=== PATIENT | female | born 1995 | race Caucasian/White ===

== ENCOUNTER 2022-10-10 21:48 | Emergency (ER) | payer OTHER, BC, SELFPAY ==
[2022-10-10 21:59] VITALS: BP 134/85; PULSE 89; RESP 18; TEMP 36.7; O2SAT 99; BMI 32.0
--- NOTE | 2022-10-10 22:02 | CT_ITS ---
Patient: CHRIS DIXON Facility:?[facility] Patient ID:?[id number] Site Patient ID:?[id number]. Site :?1995 Study:?CT-Neck Angio W/IV STROKE PROTOCOL-10/10/2022 11:13:47 PM Ordering Physician:Nancy Delgado Final Report: INDICATION: Acute stroke, right-sided facial weakness, . TECHNIQUE: CTA neck with contrast bolus tracking and 3D MIP reconstruction. FINDINGS: The study is limited by suboptimal timing of the contrast bolus. There is no obvious carotid or vertebral artery stenosis or dissection. The soft tissues of the neck are within normal limits. The cervical spine is in normal alignment. IMPRESSION: Unremarkable neck CTA, limited by suboptimal timing of the contrast bolus. Please note that all CT scans at this facility use dose modulation, iterative reconstruction, and/or weight-based dosing when appropriate to reduce radiation dose to as low as reasonably achievable. Dictated by Desmond Stratton MD @ 10/11/2022 9:33:28 AM Signed by:?Desmond Stratton MD @10/11/2022 9:33:28 AM (Electronic Signature)
--- NOTE | 2022-10-10 22:02 | CT_ITS ---
Patient: CHRIS DIXON Facility:?[facility] Patient ID:?[id number] Site Patient ID:?[id number]. Site :?1995 Study:?CT-Head Angio W/IV ONLY-10/10/2022 11:14:09 PM Ordering Physician:?Elizabeth Delgado Final Report: INDICATION: Acute stroke, right-sided facial weakness, . TECHNIQUE: CTA head with contrast bolus tracking and 3D MIP reconstruction. FINDINGS: The study is limited by suboptimal timing of the contrast bolus. There is no obvious large vessel occlusion. No aneurysm is identified. IMPRESSION: No obvious large vessel occlusion on this limited study. Please note that all CT scans at this facility use dose modulation, iterative reconstruction, and/or weight-based dosing when appropriate to reduce radiation dose to as low as reasonably achievable. Dictated by Desmond Stratton MD @ 10/11/2022 9:31:57 AM Signed by:?Desmond Stratton MD @10/11/2022 9:31:57 AM (Electronic Signature)
--- NOTE | 2022-10-10 22:02 | CRLHL7_ITS ---
For Patients: As a result of the Century Cures Act, medical imaging exams and procedure reports are released immediately into your electronic medical record. You may view this report before your referring provider. If you have questions, please contact your health care provider. INDICATION: Right side facial weakness, , right sided facial weakness TECHNIQUE: CT Head without i.v. contrast. Coronal and sagittal reformats were obtained. COMPARISON: None FINDINGS: CSF space: The ventricles are normal for age. Brain: No evidence of mass, acute infarction or hemorrhage is seen. No mass-effect or midline shift is seen. The brain parenchyma is otherwise normal in appearance with preservation of the murray-white matter junction. Calvarium: The visualized paranasal sinuses are well aerated. The mastoid air cells are clear. The visualized orbits are grossly unremarkable. The calvarium is unremarkable in appearance with no fractures identified. IMPRESSION: 1. No evidence of acute infarction, intracranial hemorrhage, or mass-effect seen. The findings were discussed with Dr. Johnson at 11:45 PM. Please note that all CT scans at this facility use dose modulation, iterative reconstruction, and/or weight-based dosing when appropriate to reduce radiation dose to as low as reasonably achievable. Dictated by: Devyn Chao MD @ 10/10/2022 23:48:03 (Electronically Signed)
[2022-10-10 22:10] VITALS: PULSE 52
[2022-10-10 22:33] LABS: Basophils Absolute Auto 0.05 K/uL (0.00-0.30); Basophils Percent Auto 0.5 % (0.0-3.0); Eosinophils Absolute Auto 0.12 K/uL (0.00-0.50); Eosinophils Percent Auto 1.2 % (0.0-7.0); Hematocrit 38.1 % (33.0-51.0); Hemoglobin* 12.5 gm/dL (12.0-16.0); Immature Granulocytes Abs Auto 0.08 K/uL (0.00-0.30); Immature Granulocytes Pct Auto 0.8 %; Lymphocytes Absolute Auto 3.51 K/uL (0.90-2.90); Lymphocytes Percent Auto 36.1 % (20-44); Mean Corpuscular HGB Conc 33 gm/dL (32-36); Mean Corpuscular Hemoglobin 30 pg (26-34); Mean Corpuscular Volume 93 fL (80-100); Monocytes Percent Auto 7.3 % (0.0-11.0); Neutrophils Absolute Auto 5.26 K/uL (1.7-7.0); Neutrophils Percent Auto 54.1 % (42.0-72.0); Platelet Count* 337 K/uL (140-440); Red Blood Count 4.12 m/uL (4.00-5.20); White Blood Count* 9.73 K/uL (4.50-11.00)
[2022-10-10 22:34] LABS: Slide Review Reflex No
[2022-10-10 22:41] LABS: Chloride* 109 mmol/L (96-114); Potassium* 4.3 mmol/L (3.6-5.1); Sodium* 139 mmol/L (135-149)
[2022-10-10 22:44] LABS: Blood Urea Nitrogen* 14 mg/dL (5-24); Carbon Dioxide* 26 mmol/L (20-32); Creatinine* 0.7 mg/dL (0.5-1.5); Est. Creatinine Clearance* 95.48; Estimated Glomerular Filt Rate 121 ml/min; Glucose* 78 mg/dL (60-115)
--- OUTSIDE RECORDS SUMMARY | 2022-10-10 23:51 | XMS_ITS | Encounter Summary ---
:1995 Author Organization [place] Address [address] [place] [address] Care Team Providers Name Role Phone Karen Garza PA-C Unavailable [phone] Gretta Fishman [facility] Unavailable Karen Garza PA-C Primary Care Provider [phone] Reason for Visit Reason Onset Date Comments Patient/info Update 04/03/2021 Clinic Contact landy rivas. Encounter Details Date Type Department Care Team Description 04/03/2021 Telephone [facility] Gretta Fishman Pat ient/info Update [facility] (Clinic Contact number [place] [address] ) [address] [place] [address] [address] [address] [place] [address] Social History Tobacco Use Types Packs/Day Years Used Date Smoking Tobacco: Never Smokeless Tobacco: Never Alcohol Use Standard Drinks/Week Comments Not Currently 0 (1 standard drink = 0.6 oz pure alcoho l) Sex Assigned at Date Recorded Not on file documented as of this encounter Miscellaneous Notes Telephone Encounter - Luann Browning, DANILO - 04/03/2021 11:30 AM CDT Sent patient a mychart with the new clinic number, even tho she has not been seen in our clinic since October, and looks like she has transferred her care to another [facility] group. Luann Browning CMA documented in this encounter Plan of Treatment Not on filedocumented as of this encounter Visit Diagnoses Not on filedocumented in this encounter Care Teams Demolition Worker Relationship Specialty Start Date End Date Karen Garza, PCP - General Family Medicine 02/28/21 [facility] [address] , [address] [address] Karen Garza, Assigned PCP 05/20/20 701/14 [facility] [address], [address] [address] Gretta Fishman CNM Assigned OBGYN Provider 10/28/20 08/17/21 [address] [place], [place] [id number] documented as of this encounter
--- OUTSIDE RECORDS SUMMARY | 2022-10-10 23:51 | XMS_ITS | Encounter Summary ---
:1995 Author Organization [place] Address [address] [place] [address] Care Team Providers Name Role Phone Karen Garza PA-C Unavailable Gretta Fishman CNM Unavailable Karen Garza PA-C Primary Care Provider [phone] Encounter Details Date Type Department Care Team Description 04/21/2021 Travel Social History Tobacco Use Types Packs/Day Years Used Date Smoking Tobacco: Never Smokeless Tobacco: Never Alcohol Use Standard Drinks/Week Comments Not Currently 0 (1 standard drink = 0.6 oz pure alcoho l) Sex Assigned at Date Recorded Not on file COVID-19 Exposure Response Date Recorded In the last month, have you been in contact with No / Unsure 04/21/2021 7:58 PM CDT someone who was confirmed or suspected to have Coronavirus / COVID-19? documented as of this encounter Plan of Treatment Not on filedocumented as of this encounter Visit Diagnoses Not on filedocumented in this encounter Care Teams Cardroom Manager Relationship Specialty Start Date End Date Karen Garza PCP - General Family Medicine 02/28/21 [facility] [address], [address] [place] [address] Karen Garza, Assigned PCP 05/20/20 7/01/14 PA-C [address], [address] [place], [place] [address] Gretta Fishman CNM Assigned OBGYN Provider 10/28/20 08/17/21 [address] [place], [place] [address] documented as of this encounter
--- OUTSIDE RECORDS SUMMARY | 2022-10-10 23:51 | XMS_ITS | Clinical Summary ---
:1995 Author Organization [place] Address [address] [facility] [place] [address] Care Team Providers Name Role Phone Karen Garza PA-C Primary Care Provider [phone] Karen Garza PA-C Unavailable [phone] Allergies Active Allergy Reactions Severity Noted Date Comments Azithromycin 02/20/2014 rash Medications Medication Sig Dispensed Refills Start Date End Date Status triamcinolone Apply sparingly to 80 g 0 05/09/2020 Active (KENALOG) 0.1 % affected area twice external daily for one week creamIndications: Dermatitis Vit-Fe 0 Acti ve Fumarate-FA ( VITAMIN) 27-0.8 MG TABS cetirizine (ZYRTEC) Take 10 mg by mouth 0 Active 10 MG tablet daily acetaminophen Take 2 tablets (650 0 04/25/2021 Active (TYLENOL) 325 MG mg) by mouth every tabletIndications: 4 hours as needed S/P section for other (multimodal surgical pain management along with NSAIDS and opioid medication as indicated based on pain control and physical function) ibuprofen Take 4 tablets (800 0 04/24/2021 Active (ADVIL/MOTRIN) 200 MG mg) by mouth every tabletIndications: 6 hours as needed S/P section for other (cramping) senna-docusate Take 1 tablet by 30 tablet 1 04/24/2021 Active (SENOKOT-S/PERICOLACE mouth 2 times daily ) 8.6-50 MG as needed for tabletIndications: constipation S/P section magnesium 250 MG Take 1 tablet by 0 Active tablet mouth daily benzocaine Apply to perineum 57 g 1 10/04/2022 Active (AMERICAINE) 20 % as needed for pain external aerosolIndications: , delivered hydrocortisone, Place rectally 3 30 g 1 10/04/2022 Active Perianal, (ANUSOL-HC) times daily as 2.5 % needed for creamIndications: hemorrhoids , delivered lanolin Apply topically 7 g 3 10/04/2022 Act malaika ointmentIndications: every hour as , delivered needed for other (sore nipples) Active Problems Problem Noted Date Labor and delivery indication for care or intervention 10/03/2022 S/P section 04/24/2021 Indication for care in labor or delivery 04/21/2021 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 Yancy Watts Oz has no plan or code status on file. Discussed available resources and p rovided with information. Confirmed code status reflects current choices pending further ACP discussions. Confirmed/documented legally designated decision makers. Added by [facility] 02/09/2013 Overview: State Tier Level: Tier 1 Status: n/a Senior Director: See Letters for [facility] Care Plan Resolved Problems Problem Noted Date Resolved Date Viral warts 02/03/2008 02/18/2014 Overview: Problem list name updated by automated p rocess. Provider to review NO ACTIVE PROBLEMS 02/09/2013 Encounters Date Type Specialty Care Team Description 10/04/2022 Travel 10/03/2022 Anesthesia Event ballast cleaning operator Kerline Storey MD 10/03/2022 - Hospital Encounter ballast cleaning operator Adriana Bernal , gerardo villafana (Primary Dx); 10/05/2022 MD Marisela S/P section Shameka Goodman MD from Last 3 Months Immunizations Name Administration Dates Next Due DTAP (<7y) 04/24/2000 DTP-Hib 04/29/1996, 1995, 1995, 1995 Flu, Unspecified 09/28/2019 HPV 02/05/2011, 04/18/2008, 02/03/200808/05 HepB 08/16/2002 MMR 09/15/2006, 04/29/1996 Meningococcal (Menactra??) 02/05/2011 OPV, trivalent, live 04/29/1996, 1995, 1995 Poliovirus, inactivated (IPV) 04/24/2000 TD (ADULT, 7+) 04/07/2016 TDAP Vaccine (Adacel) 09/15/2006 Varicella Pt Report Hx of 12/24/1996 Varicella/Chicken Pox Family History Medical History Relation Comments Hypertension Father Cerebrovascular Disease Maternal Grandfather No Known Problems Maternal Grandmother No Known Problems Mother Cancer Paternal Grandfather Diabetes Type 1 Paternal Grandmother Obesity Paternal Grandmother No Known Problems Sister Alzheimer Disease No family hx of Diabetes No family hx of Relation Status Comments Father Alive Maternal Grandfather Maternal Grandmother Alive Mother Alive Paternal Grandfather Paternal Grandmother Alive Sister Alive Social History Tobacco Use Types Packs/Day Years Used Date Smoking Tobacco: Never Smokeless Tobacco: Never Alcohol Use Standard Drinks/Week Comments Not Currently 0 (1 standard drink = 0.6 oz pure alcoho l) Sex Assigned at Date Recorded Not on file COVID-19 Exposure Response Date Recorded In the last 10 days, have you been in contact with No / Unsu re 10/04/2022 1:20 AM ANESTHESIOLOGY TEACHER someone who was confirmed or suspected to have Coronavirus/COVID-19? Last Filed Vital Signs Vital Sign Reading Time Taken Comments Blood Pressure 119/68 10/05/2022 7:52 AM ANESTHESIOLOGY TEACHER Pulse 59 10/05/2022 7:52 AM ANESTHESIOLOGY TEACHER Temperature 36.2 ??C (97.1 ??F) 10/05/2022 7:52 AM ANESTHESIOLOGY TEACHER Respiratory Rate 18 10/05/2022 7:52 AM ANESTHESIOLOGY TEACHER Oxygen Saturation 96% 10/03/2022 10:56 PM ANESTHESIOLOGY TEACHER Inhaled Oxygen Concentration - - Weight 89.2 kg (196 lb 9.6 oz) 04/21/2021 8:02 PM CDT Height 157.5 cm (5' 2) 04/21/2021 8:02 PM CDT Body Mass Index 35.96 04/21/2021 8:02 PM CDT Plan of Treatment Health Maintenance Due Date Last Done Comments ANNUAL REVIEW OF HM ORDERS 1995 HEPATITIS B IMMUNIZATION (2 09/13/2002 08/16/2002 of 3 - 3-dose series) HEPATITIS C SCREENING 2013 YEARLY PREVENTIVE VISIT 10/17/2020 10/17/2019, 09/02/2018, 05/04/2017, Additional history exists ADVANCE CARE PLANNING 04/07/2021 04/07/2016, 03/09/2015, 03/09/2015 PAP 09/02/2021 09/02/2018, 05/04/2017, 04/07/2016, Additional history exists PHQ-2 (once per calendar 11/23/2021 09/13/2020, 09/02/2018, year) 05/04/2017 COVID-19 Vaccine (3 - 01/21/2022 11/26/2021, 10/31/2021 Booster for Pfizer series) DTAP/TDAP/TD IMMUNIZATION 07/10/2032 07/10/2022, 02/07/2021 , (10 - Td or Tdap) 04/07/2016, Additional history exists IPV IMMUNIZATION Completed 04/24/2000, 04/29/1996, 1995, Additional history exists MENINGITIS IMMUNIZATION Completed 02/05/2011 HIV SCREENING Completed 03/10/2022, 09/20/2020 INFLUENZA VACCINE Completed 08/07/2022, 10/25/2021, 11/20/2020, Additional history exists Pneumococcal Vaccine: Aged Out No longer eligible Pediatrics (0 to 5 Years) based on patient's age and At-Risk Patients (6 to to co mplete this topic 64 Years) Procedures Procedure Name Priority Date/Time Associated Comments Diagnosis HEMOGLOBIN Routine 10/04/2022 6:25 AM Results f or this ANESTHESIOLOGY TEACHER procedure are i n the results section. COVID-19 VIRUS STAT 10/04/2022 12:32 Results f or this (CORONAVIRUS) BY PCR AM ANESTHESIOLOGY TEACHER procedu re are in the results section. ABO/RH TYPE AND SCREEN STAT 10/03/2022 10:34 R esults for this PM ANESTHESIOLOGY TEACHER procedure are i n the results section. TYPE AND SCREEN, ADULT STAT 10/03/2022 10:34 R esults for this PM ANESTHESIOLOGY TEACHER procedure are i n the results section. CBC WITH PLATELETS STAT 10/03/2022 10:34 Resul ts for this PM ANESTHESIOLOGY TEACHER procedure are i n the results section. TREPONEMA ABS W REFLEX STAT 10/03/2022 10:34 R esults for this TO RPR AND TITER PM ANESTHESIOLOGY TEACHER procedure a re in the results section. GROUP B STREPTOCOCCUS Routine 09/11/2022 9:19 AM Results for this (EXTERNAL RESULT) CDT procedure are in the results section. from Last 3 Months Results Hemoglobin (10/04/2022 6:25 AM ANESTHESIOLOGY TEACHER) P athologist Signature Hemoglobin 12.0 11.7 - 15.7 10/04/2022 LABORATORY g/dL 6:47 AM ANESTHESIOLOGY TEACHER Specimen Anatomical Collection Method / Collection Time Recei clint Time (Source) Location / Volume Laterality Blood STRUCTURE OF LEFT Venipuncture / 10/04/2022 6:25 10/04 6:41 UPPER LIMB / Unknown AM ANESTHESIOLOGY TEACHER AM ANESTHESIOLOGY TEACHER Unknown Shameka Goodman MD LAB - BLOOD ORDERABLES Performing Organization Address City/State/ZIP Code Phon [place] [address] [facility] [address] [facility], no room number) Asymptomatic COVID-19 Virus (Coronavirus) by PCR Nasopharyngeal (10/04/2022 12:32 AM ANESTHESIOLOGY TEACHER) Analysis Performed At Patho logist Time Signature SARS CoV2 PCR Negative Negative 10/04/2022 LABORATORY 2:21 AM ANESTHESIOLOGY TEACHER Comment: NEGATIVE: SARS-CoV-2 (COVID-19) RNA not detected, presumed negative. Specimen Anatomical Location / Collection Method Collection Curtis e Received Time (Source) Laterality / Volume Swab NASOPHARYNGEAL Non-blood 10/04/2022 12:32 2 STRUCTURE / Unknown Collection / AM ANESTHESIOLOGY TEACHER 12:53 AM ANESTHESIOLOGY TEACHER Unknown Narrative LABORATORY - 10/04/2022 2:21 AM ANESTHESIOLOGY TEACHER Testing was performed using the Xpert Xpress SARS-CoV-2 Assay on the [employer]. A dditional information about this Emergency Use Authorization (EUA) a ssay can be found via the Lab Guide. This test should be ordered for t he detection of SARS-CoV-2 in individuals who meet SARS-CoV-2 clinical and/or epidemiological criteria. Test performance is unknown in asymptomatic patients. This test is for in vitro diagnostic use unde r the FDA EUA for laboratories certified under CLIA to per form high complexity testing. This test has not been FDA cleared or ap proved. A negative result does not rule out the presence of PCR in hibitors in the specimen or target RNA in concentration below the li harrison of detection for the assay. The possibility of a false negati ve should be considered if the patient's recent exposure or clinica l presentation suggests COVID-19. This test was validated by the [facility]. This laboratory is certified under the Clinical Laboratory Improvement Amendments of 1988 (CLIA-88) as qualified to perform high complexity laboratory testing. Shameka Goodman MD LAB - MICRO GENERAL ORDERABL ES Performing Organization Address City/[facility]/ZIP Code Phon [place] [phone] [facility] [address] [facility], no room number) Adult Type and Screen (10/03/2022 10:34 PM ANESTHESIOLOGY TEACHER) [employer] Method Time Signature ABO/RH(D) O POS 10/03/2022 RH BLOOD 10:15 PM BANK ANESTHESIOLOGY TEACHER Antibody Negative Negative 10/03/2022 RH BLOOD Screen 10:15 PM BANK ANESTHESIOLOGY TEACHER SPECIMEN [id number] 10/03/2022 RH BLOOD EXPIRATION 10:15 PM BANK DATE ANESTHESIOLOGY TEACHER Specimen Anatomical Collection Method / Collection Time Recei clint Time (Source) Location / Volume Laterality Blood BLOOD SPECIMEN / Venipuncture / 10/03/2022 10:34 10/03 Unknown Unknown PM ANESTHESIOLOGY TEACHER 11:08 PM ANESTHESIOLOGY TEACHER Adriana Bernal MD LAB - BLOOD BANK TEST ORDER Performing Organization Address City/[facility]/ZIP Code Phon e Number BLOOD BANK [address] [place] [address] Treponema Abs w Reflex to RPR and Titer (10/03/2022 10:34 PM ANESTHESIOLOGY TEACHER) [employer] Method Time Signature Treponema Nonreactive Nonreactive 10/04/2022 SPECIALTY Antibody 11:20 AM ANESTHESIOLOGY TEACHER CORE/PROT/EN Total DO Specimen Anatomical Collection Method / Collection Time Recei clint Time (Source) Location / Volume Laterality Blood BLOOD SPECIMEN / Venipuncture / 10/03/2022 10:34 10/03 Unknown Unknown PM ANESTHESIOLOGY TEACHER 11:08 PM ANESTHESIOLOGY TEACHER Adriana Bernal MD LAB - BLOOD ORDERABLES Performing Organization Address City/State/ZIP Code Phon e Number SPECIALTY CORE/PROT/ENDO Specialty [place], [place] [address] Core/Prot/Endo [address] [facility] [address] Building, Room 3-580 (ABNORMAL) CBC with platelets (10/03/2022 10:34 PM ANESTHESIOLOGY TEACHER) [facility] gist Method Time Signature WBC Count 16.2 (H) 4.0 - 11.0 10/03/2022 RH LABORATORY 10e3/uL 11:11 PM ANESTHESIOLOGY TEACHER RBC Count 4.48 3.80 - 10/03/2022 RH LABORATORY 5.20 11:11 PM ANESTHESIOLOGY TEACHER 10e6/uL Hemoglobin 13.8 11.7 - 10/03/2022 RH LABORATORY 15.7 g/dL 11:11 PM ANESTHESIOLOGY TEACHER Hematocrit 41.3 35.0 - 10/03/2022 RH LABORATORY 47.0 % 11:11 PM ANESTHESIOLOGY TEACHER MCV 92 78 - 100 10/03/2022 RH LABORATORY fL 11:11 PM ANESTHESIOLOGY TEACHER MCH 30.8 26.5 - 10/03/2022 RH LABORATORY 33.0 pg 11:11 PM ANESTHESIOLOGY TEACHER MCHC 33.4 31.5 - 10/03/2022 RH LABORATORY 36.5 g/dL 11:11 PM ANESTHESIOLOGY TEACHER RDW 13.7 10.0 - 10/03/2022 RH LABORATORY 15.0 % 11:11 PM ANESTHESIOLOGY TEACHER Platelet Count 260 150 - 450 10/03/2022 RH LABORATORY 10e3/uL 11:11 PM ANESTHESIOLOGY TEACHER Specimen Anatomical Collection Method / Collection Time Recei clint Time (Source) Location / Volume Laterality Blood BLOOD SPECIMEN / Venipuncture / 10/03/2022 10:34 10/03 Unknown Unknown PM ANESTHESIOLOGY TEACHER 11:08 PM ANESTHESIOLOGY TEACHER Adriana Bernal MD LAB - BLOOD ORDERABLES Performing Organization Address City/State/ZIP Code Phon [place] [address] Care Lab [address] Lab (1st floor, no room number) Group B Streptococcus (External Result) (09/11/2022 9:19 AM CDT) [facility] gist Method Time Signature Group B Negative Negative [facility] (External) Specimen (Source) Anatomical Collection Method Collection Time Re ceived Time Location / / Volume Laterality 09/11/2022 9:19 AM CDT Patient Reported LAB - HIM EXTERNAL RESULT Performing Organization Address City/State/ZIP Code Phon e Number [address] [address] from Last 3 Months Insurance Payer Benefit Plan / Subscriber ID Effective Phone Address T ype Group Dates [id number] 2018-Pre [phone] [address] HMO OPEN ACCESS sent [phone] [place] [id number] BCBS BCBS OF [place] [id number] 2020-P [phone] [address] emnity resent [phone] [place] [address] Beverly Wattszabeth Personal/Family Self 1995 [id number] [address] Watts (Home) [facility] [place] [address] Yancy Watts [employer] Self 1995 [id number] [address] Watts (Home) [place] [address] Advance Directives For more information, please contact: [phone] Latest Code Status on File Code Status Date Activated Date Inactivated Comments Full Code 10/03/2022 10:12 PM 10/05/2022 2:07 PM All basic and advanced life-sustaining interventions are performed as joana ropriate Question Answer Comments Code status determined by: Discussion with patient/ legal de cision maker Code Status History Code Status Date Activated Date Inactivated Comments Full Code 04/25/2021 8:51 AM 10/03/2022 9:56 PM Question Answer Comments Code status determined by: Discussion with patient/ legal de cision maker Full Code 04/23/2021 7:41 AM 04/25/2021 8:51 AM All basic and advanced life-sustaining interventions ar e performed as appropriate Question Answer Comments Code status determined by: Discussion with patient/ legal de cision maker Full Code 04/22/2021 8:02 AM 04/22/2021 5:09 PM All basic an d advanced life-sustaining interventions ar e performed as appropriate Question Answer Comments Code status determined by: Other (please document) Care Teams Kerfer Machine Operator Relationship Specialty Start Date End Date Karen Garza PA-C PCP - General Family Medicine 02/28/21 [address] [place] [address] Karen Garza PA-C Assigned PCP 07/05/[address] [address]
--- OUTSIDE RECORDS SUMMARY | 2022-10-10 23:51 | XMS_ITS | Encounter Summary ---
:1995 Author Organization [place] Address [address] [facility] [address] 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 Diagnoses Labor and delivery indication for care or intervention Labor and delivery indication for care or intervention Rh Procedures Labor and Delivery [address] [place] [address] Phone: Fax: Referral ID Status Reason Start Date Expiration Date Visits Requ ested Visits Authorized [id number] 1 1 Encounter Details Date Type Department Care Team Description 10/03/2022 - Hospital Encounter [facility] Waqas Bernal MD [facility] [place] [address] [facility] [address] [place] [address] , delivered (Primary Dx); 10/05/2022 [facility] Shameka Goodman MD [facility] [address] [facility] [place], [place] [id number] S/P section [address] [place] [address] Social History Tobacco Use Types [...] No / Unsu re 10/04/2022 1:20 AM OCCUPATIONAL ANALYST someone who was confirmed or suspected to have Coronavirus/COVID-19? documented as of this encounter Last Filed Vital Signs Vital Sign Reading Time Taken Comments Blood Pressure 119/68 10/05/2022 7:52 AM OCCUPATIONAL ANALYST Pulse 59 10/05/2022 7:52 AM OCCUPATIONAL ANALYST Temperature 36.2 ??C (97.1 ??F) 10/05/2022 7:52 AM OCCUPATIONAL ANALYST Respiratory Rate 18 10/05/2022 7:52 AM OCCUPATIONAL ANALYST Oxygen Saturation 96% 10/03/2022 10:56 PM OCCUPATIONAL ANALYST Inhaled Oxygen Concentration - - Weight - - Height - - Body Mass Index - - documented in this encounter Discharge Summaries Morales Pyle MD - 10/05/2022 7:19 AM CST [facility] Discharge Summary Obstetrics Date of Admission: 10/03/2022 Date of Discharge: 10/05/22 Discharging Provider: Morales Pyle MD Discharge Diagnoses - History of Present Illness Yancy Dixon is a 27 year old female now who presented [facility] 39w2d [facility] des[facility] TOLAC. Her has been complicated by Hx LTCS x1, Class 1 Obesity, H/o PUPPS, Short IPI, Varicella non-immune . Please see her admit H&P for full details of her PMH, PSH, Meds, Allergiesand exam on admit. Hospital Course The patient had a Normal spontaneous vaginal delivery @ 39w2d, please see her delivery summary for full details. She presented in labor, SROM, active labor was very short as was 2nd stage of labor within-house present for delivery of infant, partner present for 3rd stage of delivery. Successful uncomplicated . 2nd degree laceration repaired standard. IM pitocin. EBL 200mL. Baby boy. Her course was uncomplicated. On day 2, she was meeting all of her goals and deemed stable for discharge. She was voiding without difficulty, tolerating a regular diet without nausea and vomiting, her pain was well controlled on oral pain medicines and her lochia was appropriate. Hgb: Lab Results Component Value Date HGB 12.0 10/04/2022 HGB 13.8 10/03/2022 HGB 11.1 04/23/2021 HGB 13.5 09/20/2020 Lab Results Component Value Date RH Pos 04/21/2021 RH Pos 04/21/2021 and rhogam was not given Contraception was discussed and will be addressed at her appointment. Pt planning NFP, discussed consideration of condoms and timing next with interval of 12-18 months. Instructions: 1) Call for temperature greater than 100.4F, foul smelling vaginal discharge, bleeding more than 1 pad per hour for 2 hrs, pain not controlled by oral pain meds, severe constipation or severe nausea orvomiting. 2) She was instructed to follow-up with her primary OB in 6 weeks for a routine visit 3) She was instructed to continue her PNV on discharge if she wished to breast feed her . Discharge Disposition Discharged to home Condition at discharge: Stable Primary Care Physician Karen Garza Consultations This Hospital Stay ANESTHESIOLOGY IP CONSULT IP CONSULT Discharge Orders Breast pump - Manual/Electric Breast Pump Documentation: Manual/Electric Pump: To support adequate breast milk production and nutrition for infant. I, the undersigned, certify that the above prescribed supplies are medically necessary for this patient and is both reasonable and necessary in reference to accepted standards of medical and necessary in reference to accepted standards of medical practice in the treatment of this patient's condition and is not prescribed as a convenience. Discharge Medications Current Discharge Medication List CONTINUE these medications which have NOT CHANGED Details cetirizine (ZYRTEC) 10 MG tablet Take 10 mg by mouth daily magnesium 250 MG tablet Take 1 tablet by mouth daily Vit-Fe Fumarate-FA ( VITAMIN) 27-0.8 MG TABS acetaminophen (TYLENOL) 325 MG tablet Take 2 tablets (650 mg) by mouth every 4 hours as needed for other (multimodal surgical pain management along with NSAIDS and opioid medication as indicated based on pain control and physical function) Qty: Associated Diagnoses: S/P section ibuprofen (ADVIL/MOTRIN) 200 MG tablet Take 4 tablets (800 mg) by mouth every 6 hours as needed for other (cramping) Associated Diagnoses: S/P section senna-docusate (SENOKOT-S/PERICOLACE) 8.6-50 MG tablet Take 1 tablet by mouth 2 times daily as needed for constipation Qty: 30 tablet, Refills: 1 Associated Diagnoses: S/P section triamcinolone (KENALOG) 0.1 % external cream Apply sparingly to affected area twice daily for one week Qty: 80 g, Refills: 0 Associated Diagnoses: Dermatitis Allergies Allergies Allergen Reactions ??? Zithromax [Azithromycin] rash PATIONAL ANALYST documented in this encounter Discharge Instructions Discharge InstructionsMorales Pyle MD - 10/04/2022 9:05 AM CST Discharge Instructions ACTIVITY: - You may ride in a car, but no driving for 1-2 weeks. - Do not lift anything heavier than your baby for 6 weeks. - You may slowly go up and down stairs as you feel able. - Resume other exercises after 6 weeks. - Rest when your baby is sleeping. - Call your doctor if you are feeling blue for more than 2 weeks. - Call your doctor immediately or go the Emergency Center if you think you might hurt yourself or your baby. HYGIENE: - You may take a tub bath or shower. - Continue using a radha bottle or sitz bath for comfort or cleanliness. - No douching or tampon use until after 6 week checkup. DIET: - Wait 6 weeks before dieting to lose weight. - Aim for gradual weight loss through healthy eating habits. - Take a vitamin daily unless otherwise directed. : - Refer to Guidelines booklet or call support [place]: [phone] MEDICATIONS: - Use as directed on prescription. PAIN MANAGEMENT: Breast Care: - If not , apply ice packs to your breasts 3 times per day for 15 minutes. Wear a tightbra for at least one week. - If , nurse often to get relief, pain medication as directed. IF Laceration: - Continue use of radha bottle and sitz bath as directed. - Use Dermoplast and/or Tucks as directed. IF Incision: - Splint incision when moving and turning. - Medications as instructed. SPECIAL INFORMATION: - No sexual intercourse for 6 weeks. After that, use a barrier contraception until your doctor tellsyou it is ok to use something different. - is not a method of control. - You may have a period while . Your first period may come 4 to 10 weeks after delivery, or later if you are . - Avoid constipation. Drink plenty of water, eat vegetables and fruits high in natural fiber, high grain breads and cereals. You may use a stool softener as necessary. COMPLICATIONS: Call you doctor if any of the following occur: - Continuing bright red vaginal bleeding or clots larger than a lemon. - Pain or redness in the breasts. - Fever over 100.4 when temperature is taken by mouth. - Burning feeling with urination. - Bad smelling vaginal drainage. - Incision or episiotomy pulls apart, is red or has draiage. PATIONAL ANALYST documented in this encounter Medications at Time of Discharge Medication Sig Dispensed Refills Start Date End Date acetaminophen (TYLENOL) Take 2 tablets (650 mg) 0 04/25/2021 325 MG by mouth every 4 hours tabletIndications: S/P as needed for other section (multimodal surgical pain management along with NSAIDS and opioid medication as indicated based on pain control and physical function) benzocaine (AMERICAINE) Apply to perineum as 57 g 1 20 % external needed for pain aerosolIndications: , delivered cetirizine (ZYRTEC) 10 Take 10 mg by mouth 0 MG tablet daily hydrocortisone, Place rectally 3 times 30 g 1 10/04/20 22 Perianal, (ANUSOL-HC) daily as needed for 2.5 % creamIndications: hemorrhoids , delivered ibuprofen (ADVIL/MOTRIN) Take 4 tablets (800 mg) 0 04/24/2021 200 MG by mouth every 6 hours tabletIndications: S/P as needed for other section (cramping) lanolin Apply topically every 7 g 3 10/04/2022 ointmentIndications: hour as needed for , delivered other (sore nipples) magnesium 250 MG tablet Take 1 tablet by mouth 0 daily Vit-Fe 0 Fumarate-FA ( VITAMIN) 27-0.8 MG TABS senna-docusate Take 1 tablet by mouth 30 tablet 1 1 (SENOKOT-S/PERICOLACE) 2 times daily as needed 8.6-50 MG for constipation tabletIndications: S/P section triamcinolone (KENALOG) Apply sparingly to 80 g 0 04/23 0.1 % external affected area twice creamIndications: daily for one week Dermatitis documented as of this encounter Progress Notes Morales Pyle MD - 10/05/2022 7:17 AM CST Patient Name: Yancy Dixon Age: [age] year old Date of : 1995 PROGRESS NOTE Pt is PPD#2 s/p vaginal delivery. She is doing well without complaints. Pt is ambulating, voiding, tolerating a regular diet. Pain is well controlled and lochia is within normal limits. She is . Baby is doing well. Objective: Temp: [97 ??F (36.1 ??C)-97.9 ??F (36.6 ??C)] 97.7 ??F (36.5 ??C) Pulse: [62] 62 Resp: [16-18] 18 BP: (101-111)/(59-65) 107/65 0 lbs 0 oz General Appearance: NAD Abdomen: nontender, nondistended Fundus: firm, below the umbilicus Lower extremities: no significant edema Lab Review: ABO/RH(D) Date Value Ref Range Status 10/03/2022 O POS Final Hemoglobin Date Value Ref Range Status 10/04/2022 12.0 11.7 - 15.7 g/dL Final 10/03/2022 13.8 11.7 - 15.7 g/dL Final 04/23/2021 11.1 (L) 11.7 - 15.7 g/dL Final 09/20/2020 13.5 11.7 - 15.7 g/dL Final 10/17/2019 14.5 11.7 - 15.7 g/dL Final Hematocrit Date Value Ref Range Status 10/03/2022 41.3 35.0 - 47.0 % Final 09/20/2020 40.1 35.0 - 47.0 % Final 04/07/2016 41.0 35.0 - 47.0 % Final 02/20/2014 45.2 38 - 47 % Final Lab Results Component Value Date WBC 16.2 10/03/2022 WBC 9.9 09/20/2020 Lab Results Component Value Date RBC 4.48 10/03/2022 RBC 4.26 09/20/2020 Lab Results Component Value Date HGB 12.0 10/04/2022 HGB 11.1 04/23/2021 Lab Results Component Value Date HCT 41.3 10/03/2022 HCT 40.1 09/20/2020 No components found for: MCT Lab Results Component Value Date MCV 92 10/03/2022 MCV 94 09/20/2020 Lab Results Component Value Date MCH 30.8 10/03/2022 MCH 31.7 09/20/2020 Lab Results Component Value Date MCHC 33.4 10/03/2022 MCHC 33.7 09/20/2020 Lab Results Component Value Date RDW 13.7 10/03/2022 RDW 11.7 09/20/2020 Lab Results Component Value Date PLT 260 10/03/2022 PLT 249 09/20/2020 Assessment: PPD#2 s/p , doing well. Plan: - : recovering well. Pain well controlled. Cont PO pain meds and regular diet. Encourage ambulation. - Contraception: NFP - Dispo: anticipate DC PPD#2 PATIONAL ANALYST Morales Pyle MD - 10/04/2022 8:02 AM CST Patient Name: Yancy Dixon Age: [age] year old Date of : 1995 PROGRESS NOTE Pt is PPD#1 s/p vaginal delivery. She is doing well without complaints. Pt is ambulating, voiding, tolerating a regular diet. Pain is well controlled and lochia is within normal limits. She is . Baby is doing well. Objective: Temp: [97.6 ??F (36.4 ??C)-98.1 ??F (36.7 ??C)] 97.6 ??F (36.4 ??C) Resp: [18] 18 BP: (104-114)/(57-63) 105/57 SpO2: [93 %-98 %] 96 % 0 lbs 0 oz General Appearance: NAD Abdomen: nontender, nondistended Fundus: firm, below the umbilicus Lower extremities: no significant edema Lab Review: ABO/RH(D) Date Value Ref Range Status 10/03/2022 O POS Final Hemoglobin Date Value Ref Range Status 10/04/2022 12.0 11.7 - 15.7 g/dL Final 10/03/2022 13.8 11.7 - 15.7 g/dL Final 04/23/2021 11.1 (L) 11.7 - 15.7 g/dL Final 09/20/2020 13.5 11.7 - 15.7 g/dL Final 10/17/2019 14.5 11.7 - 15.7 g/dL Final Hematocrit Date Value Ref Range Status 10/03/2022 41.3 35.0 - 47.0 % Final 09/20/2020 40.1 35.0 - 47.0 % Final 04/07/2016 41.0 35.0 - 47.0 % Final 02/20/2014 45.2 38 - 47 % Final Lab Results Component Value Date WBC 16.2 10/03/2022 WBC 9.9 09/20/2020 Lab Results Component Value Date RBC 4.48 10/03/2022 RBC 4.26 09/20/2020 Lab Results Component Value Date HGB 12.0 10/04/2022 HGB 11.1 04/23/2021 Lab Results Component Value Date HCT 41.3 10/03/2022 HCT 40.1 09/20/2020 No components found for: MCT Lab Results Component Value Date MCV 92 10/03/2022 MCV 94 09/20/2020 Lab Results Component Value Date MCH 30.8 10/03/2022 MCH 31.7 09/20/2020 Lab Results Component Value Date MCHC 33.4 10/03/2022 MCHC 33.7 09/20/2020 Lab Results Component Value Date RDW 13.7 10/03/2022 RDW 11.7 09/20/2020 Lab Results Component Value Date PLT 260 10/03/2022 PLT 249 09/20/2020 Assessment: PPD#1 s/p , doing well. Plan: - : recovering well. Pain well controlled. Cont PO pain meds and regular diet. Encourage ambulation. - Contraception: NFP - Dispo: anticipate DC PPD#2 PATIONAL ANALYST Shameka Goodman MD - 10/03/2022 11:23 PM CST I was in room as patient was delivering . Of note, I was paged at 22:04 and arrived in the hospital at 22:28. I was again paged at 22:42 and told that the in-house was at the bedside. Please refer to Dr. Aquino's delivery note for details. Yancy Dixon is a 27 year old who was admitted at 38+5 for spontaneous labor . was complicated by CS x1, desires TOLAC. She did not need labor augmentation. Spontaneous delivery of a placenta with a 3-V cord ensued shortly thereafter. Placenta was examined and noted to be intact. She received IM pitocin as a uterotonic agent, as IV access was lost. Exam of the perineum revealed a 2nd degree laceration, which was repaired in standard fashion using a 3-0 monocryl suture. QBL 200cc. IV access will be obtained, and additional IV pitocin will be given due to slight uterine bogginess. Shameka Goodman MD October 03, 2022, 11:26 PM Delivery Summary Yancy Dixon Age: [age] year old Date of : 1995 Mac Jef-Yancy [[id number]] Labor Event Times Start pushing date/time: 10/03/2022 2213 Delivery/Placenta Date and Time Delivery Date: 10/03/22 Delivery Time: 10:45 PM Placenta Date/Time: 10/03/2022 10:50 PM Oxytocin given at the time of delivery: after delivery of placenta Delivering clinician: Shameka Goodman MD Other personnel present at delivery: Provider Role Cara Ledbetter RN Delivery Nurse Sophia Brunner RN Delivery Assist Jacinda Florez RN Delivery Assist Vaginal Counts Initial count performed by 2 team members: Two Team Members Dr. Kenia Brunner, DIANA [place] Suture [place] Sponges (RETIRED) Instruments Initial counts 2 5 Added to count 1 Relief counts Final counts 2 1 5 Placed during labor Accounted for at the end of labor FSE Yes Yes IUPC No NA Cervidil No NA Apgars Living status: Living 1 Minute 5 Minute 10 Minute 15 Minute 20 Minute Skin color: Heart rate: Reflex irritability: Muscle tone: Respiratory effort: Total: Apgars assigned by: CARA LEDBETTER RN Cord Vessels: 3 Vessels Cord Blood Disposition: Lab Gases Sent?: No Delayed cord clamping?: Yes Cord Clamping Delay (seconds): 61-120 seconds Resuscitation Methods: None Output in Delivery Room: Stool Measurements Output in delivery room: Stool Delivery (Maternal) (Provider to Complete) ([id number]) Blood Loss Mother: Asha Dixon #[id number] Start of Mother's Information Delivery Blood Loss 10/03/22 1045 - 10/03/22 2326 None End of Mother's Information Mother: Asha Dixon #[id number] Delivery - Provider to Complete ([id number]) Delivering clinician: Shameka Goodman MD Other personnel: Provider Role Cara Ledbetter RN Delivery Nurse Sophia Brunner RN Delivery Assist Jacinda Florez RN Delivery Assist Placenta Date/Time: 10/03/2022 10:50 PM Anesthesia Method: Local Shameka Goodman MD PATIONAL ANALYST documented in this encounter H&P Notes Shameka Goodman MD - 10/03/2022 10:40 PM CST Labor & Delivery History & Physical Patient Name: Yancy Dixon Age: [age] year old Date of : 1995 Subjective: Yancy Dixon is a 27 year old at 38+5 wga who presents for contractions. Patient reports contractions started earlier this evening and became progressively more intense and frequent. Patient denies leaking of fluid or vaginal bleeding. Movement: present. care complicated by: - h/o CSx1 (arrest of descent, OP presentation, cat II FHT): desires TOLAC. Papers signed 08/07/22 - O pos - GBS neg Episode Problems (from 08/19/22 to present) No problems associated with this episode. OB History Para Term AB Living 2 1 1 0 0 1 SAB IAB Ectopic Multiple Live Births 0 0 0 0 1 # Outcome Date GA Lbr [place]/2nd Weight Sex Delivery Anes PTL Lv 2 Current 1 Term 04/22/21 41w1d 03:50 / 04:28 3.66 kg (8 lb 1.1 oz) F CS-LTranv EPI, Spinal N URIEL Name: TIMOTHY DIXON Apgar1: 9 Apgar5: 9 No past medical history on file. Past Surgical History: Procedure Laterality Date ??? SECTION N/A 04/22/2021 Procedure: SECTION; Surgeon: Adriana Bernal MD; Location: [facility] OR ??? DENTAL SURGERY [place] teeth. age 15 Social History Tobacco Use ??? Smoking status: Never ??? Smokeless tobacco: Never Substance Use Topics ??? Alcohol use: Not Currently ??? Drug use: No History Drug Use No Family History Problem Relation Age of Onset ??? No Known Problems Mother ??? Hypertension Father ??? No Known Problems Sister ??? Cancer Paternal Grandfather ??? No Known Problems Maternal Grandmother ??? Cerebrovascular Disease Maternal Grandfather ??? Diabetes Type 1 Paternal Grandmother ??? Obesity Paternal Grandmother ??? Alzheimer Disease No family hx of ??? Diabetes No family hx of @ALGSIMPLE@ Medications Prior to Admission Medication Sig Dispense Refill Last Dose ??? acetaminophen (TYLENOL) 325 MG tablet Take 2 tablets (650 mg) by mouth every 4 hours as needed for other (multimodal surgical pain management along with NSAIDS and opioid medication as indicated based on pain control and physical function) ??? cetirizine (ZYRTEC) 10 MG tablet Take 10 mg by mouth daily ??? ibuprofen (ADVIL/MOTRIN) 200 MG tablet Take 4 tablets (800 mg) by mouth every 6 hours as needed for other (cramping) ??? Vit-Fe Fumarate-FA ( VITAMIN) 27-0.8 MG TABS ??? senna-docusate (SENOKOT-S/PERICOLACE) 8.6-50 MG tablet Take 1 tablet by mouth 2 times daily as needed for constipation 30 tablet 1 ??? triamcinolone (KENALOG) 0.1 % external cream Apply sparingly to affected area twice daily for one week 80 g 0 Most Recent Immunizations Administered Date(s) Administered ? ? DTAP (<7y) 04/24/2000 ??? DTP-Hib 04/29/1996 ??? Flu, Unspecified 09/28/2019 ??? HPV 02/05/2011 ??? HepB 08/16/2002 ??? MMR 09/15/2006 ??? Meningococcal (Menactra??) 02/05/2011 ??? OPV, trivalent, live 04/29/1996 ??? Poliovirus, inactivated (IPV) 04/24/2000 ??? TD (ADULT, 7+) 04/07/2016 ??? TDAP Vaccine (Adacel) 09/15/2006 ??? Varicella Pt Report Hx of Varicella/Chicken Pox 12/24/1996 Review of Systems - NEGATIVE FOR Fevers Chills Headache Visual changes Ear pain Sore throat Cough Shortness of breath Chest pain Palpitations Constipation Diarrhea Vomiting Bloody stools Hematuria Dysuria Muscle weakness Gait disturbance Objective: 0 lbs 0 oz General: General appearance: alert, well appearing, and in no distress. Lungs: unlabored Heart: regular rate and rhythm Abdomen: Gravid, nontender between contractions [place]: Contraction Frequency (min): q 1-2 min FHT: Baseline 140 BPM heart variability:moderate heart rate accelerations: Present 15 x 15 heart rate decelerations: early heart rate interpretation: Category I Speculum: Cervix: Dilation: 7-8 Effacement: 80 Station: -1 Exam per nurse Extremities: Trace to 1+ edema bilateral, symmetric edema; neg Quirino's sign Lab Review: Hemoglobin Date Value Ref Range Status 04/23/2021 11.1 (L) 11.7 - 15.7 g/dL Final 09/20/2020 13.5 11.7 - 15.7 g/dL Final 10/17/2019 14.5 11.7 - 15.7 g/dL Final Hematocrit Date Value Ref Range Status 09/20/2020 40.1 35.0 - 47.0 % Final 04/07/2016 41.0 35.0 - 47.0 % Final 02/20/2014 45.2 38 - 47 % Final Assessment Yancy Dixon is a 27 year old at 38+5 wga with spontaneous labor Plan - Labor: Epidural upon request. Augment with AROM and pitocin if needed - FHT: cat I. Cont CEFM. - h/o CSx1 (arrest of descent, OP presentation, cat II FHT): desires TOLAC. Papers signed 08/07/22 - O pos - GBS neg - PP Contraception: natural family planning - Dispo: Anticipate PATIONAL ANALYST documented in this encounter Miscellaneous Notes Plan of Care - Jie Valdovinos RN - 10/05/2022 11:44 AM CST Discharge instructions completed. Patient states she understands all discharge instructions and all her questions have been answered. Verbalizes when she needs to return to clinic for follow up for herself (6 weeks) and baby (10/08). She is caring for herself and her baby independently. Prescriptions reviewed and sent to pharmacy. depression symptoms reviewed and encouraged frequent reviewof depression scale. PATIONAL ANALYST Plan of Care - ROBERT WOLF - 10/05/2022 2:24 AM CST Patient VSS, good pain control with medications as per JAN. Fundal checks WDL. Encouraged to stay hydrated and void frequently. Ambulating and self cares independently. Breast feeding independently every 2-3 hours. FOB at the bedside and attentive to Mom and active in baby cares. Both parents bonding with the baby. PATIONAL ANALYST Plan of Care - Jie Valdovinos RN - 10/04/2022 6:14 PM CST Data: Vital signs within normal limits. checks within normal limits - see flow record. Patient eating and drinking normally. Patient able to empty bladder independently and is up ambulating.Patient performing self cares, is able to care for and is every 2-3 hours. Perineum swollen but no signs of hematoma noted. Using ice, tucks, and spray for discomfort. Has donut and told about pillow repositioning to get off bottom. Action: Patient medicated with ibuprofen and tylenol during the shift for pain. See MAR. Adequate pain control noted by patient. Patient education done, see flow record. Response: Positive attachment behaviors observed with infant. Patient's spouse present this shift. Plan: Continue current plan of care. Anticipate discharge on 10/05. PATIONAL ANALYST Plan of Care - Maddi Duran RN - 10/04/2022 6:03 AM CST Patient arrived to unit via wheelchair, accompanied by labor RN, , and carrying baby boy in hands around 0300 this morning. Patient was oriented to room and settled in. Patient's vital signs are stable, pain is managed with PRN pain medications. Responding to all infant cues and breastfe eding baby every 2-3 hours. RN took patient to bathroom using stand by assist at 0645 this AM. Patient voided spontaneously, and patient was steady on feet. PATIONAL ANALYST Plan of Care - Zee Sharp RN - 10/04/2022 3:14 AM CST Data: Yancy Dixon transferred to 430 via wheelchair at 0300. Baby transferred via parent's arms. Action: Receiving unit notified of transfer: Yes. Patient and family notified of room change. Reportgiven to Dagoberto RN at 0300. Belongings sent to receiving unit. Accompanied by Registered Nurse. Oriented patient to surroundings. Call light within reach. ID bands double-checked with receiving R N. Response: Patient tolerated transfer and is stable. PATIONAL ANALYST Provider Notification - Zee Sharp RN - 10/03/2022 11:40 PM OCCUPATIONAL ANALYST 10/03/22 [id number] Provider Notification Provider Name/Title Dr Goodman Method of Notification Phone Request Evaluate - Remote Updated MD of moderate flow with fundal check. Fundus firm and midline no clots. Pitocin running at 340ml/hr. BP have been 1066-113/50-60's. Orders to give IM methergine if bleeding continues to be moderate or uterus is boggy. Pt considered to have precipitously deliver, clarified if MD would like toxscreen done given no longer meeting updated toxicology indications. MD declines tox screen. RN to Update MD if methergine is needed. PATIONAL ANALYST L&D Delivery Note - Katlin Aquino MD - 10/03/2022 10:48 PM OCCUPATIONAL ANALYST Called to room as in-house physician to attend unmedicated delivery of TOLAC patient. Patient admitted at 7cm, experienced SROM and rapidly progressed to complete dilation. Patient has history of one prior section for second stage arrest of 81oz infant. EFW 7.5-8# now. Second stage initiated due to maternal urge to push. Pulse oximeter placed on mother, with FSE placed on fetus to maintain monitoring during labor. IV placed during second stage. Effective pushing resulted in delivery of head, restituted to maternal right. Anterior (left) shoulder not delivered with gentle traction. McRobert's positioning performed and posterior (right) shoulder deliveredand fetus rotated to delivery of vigorous male. placed on maternal chest. Dr. Goodman came to room at this point for delivery of placenta. Katlin Aquino MD PATIONAL ANALYST Provider Notification - Georgia Fuller RN - 10/03/2022 10:42 PM CST 10/03/222 Provider Notification Provider Name/Title Dr. Goodman Method of Notification Phone Call to Dr. Goodman to get update on arrival time as IHOB at bedside - Dr. Goodman in hospital and will beup shortly. PATIONAL ANALYST Provider Notification - Georgia Fuller RN - 10/03/2022 10:04 PM CST 10/03/222203 Provider Notification Provider Name/Title Dr. Goodman Method of Notification Phone Request Evaluate in Person Notification Reason Patient Arrived;SVE Dr. Shameka Goodman informed of patient arrival and assessment including the following: Reason for maternal/ assessment uterine contractions. Pt reports contractions starting around 1999 and quickly becoming more frequent and intense. SVE 7-8cm, patient is a TOLAC, GBS neg. status normal baseline, moderate variability, accelerations present and no decelerations. Plan per provider/orders received for intrapartum orders, provider to come to hospital for imminent delivery. PATIONAL ANALYST documented in this encounter Plan of Treatment Not on filedocumented as of this encounter Procedures Procedure Name Priority Date/Time Associated Comments Diagnosis HEMOGLOBIN Routine 10/04/2022 6:25 AM Results f or this OCCUPATIONAL ANALYST procedure are i n the results section. COVID-19 VIRUS STAT 10/04/2022 12:32 Results f or this (CORONAVIRUS) BY PCR AM OCCUPATIONAL ANALYST procedu re are in the results section. TYPE AND SCREEN, ADULT STAT 10/03/2022 10:34 R esults for this PM OCCUPATIONAL ANALYST procedure are i n the results section. TREPONEMA ABS W REFLEX STAT 10/03/2022 10:34 R esults for this TO RPR AND TITER PM OCCUPATIONAL ANALYST procedure a re in the results section. ABO/RH TYPE AND SCREEN STAT 10/03/2022 10:34 R esults for this PM OCCUPATIONAL ANALYST procedure are i n the results section. CBC WITH PLATELETS STAT 10/03/2022 10:34 Resul ts for this PM OCCUPATIONAL ANALYST procedure are i n the results section. GROUP B STREPTOCOCCUS Routine 09/11/2022 9:19 AM Results for this (EXTERNAL RESULT) CDT procedure are in the results section. HEPATITIS B SURFACE Routine 03/10/2022 1:51 PM Re sults for this ANTIGEN (EXTERNAL CDT procedure are in RESULT) the results section. HIV 1&2 ANTIBODY Routine 03/10/2022 1:51 PM Resul ts for this (EXTERNAL RESULT) CDT procedure are in the results section. RUBELLA ANTIBODY IGG Routine 03/10/2022 1:51 PM R esults for this (EXTERNAL RESULT) CDT procedure are in the results section. documented in this encounter Results Hemoglobin (10/04/2022 6:25 AM OCCUPATIONAL ANALYST) P athologist Signature Hemoglobin 12.0 11.7 - 15.7 10/04/2022 LABORATORY g/dL 6:47 AM OCCUPATIONAL ANALYST Specimen Anatomical Collection Method / Collection Time Recei clint Time (Source) Location / Volume Laterality Blood STRUCTURE OF LEFT Venipuncture / 10/04/2022 6:25 10/04 6:41 UPPER LIMB / Unknown AM OCCUPATIONAL ANALYST AM OCCUPATIONAL ANALYST Unknown Shameka Goodman MD LAB - BLOOD ORDERABLES Performing Organization Address City/State/ZIP Code [place] [phone] Care Lab [address] [facility] Lab (1st floor, no room number) Asymptomatic COVID-19 Virus (Coronavirus) by PCR Nasopharyngeal (10/04/2022 12:32 AM OCCUPATIONAL ANALYST) Analysis Performed At Patho logist Time Signature SARS CoV2 PCR Negative Negative 10/04/2022 LABORATORY 2:21 AM OCCUPATIONAL ANALYST Comment: NEGATIVE: SARS-CoV-2 (COVID-19) RNA not detected, presumed negative. Specimen Anatomical Location / Collection Method Collection Curtis e Received Time (Source) Laterality / Volume Swab NASOPHARYNGEAL Non-blood 10/04/2022 12:32 2 STRUCTURE / Unknown Collection / AM OCCUPATIONAL ANALYST 12:53 AM OCCUPATIONAL ANALYST Unknown Narrative LABORATORY - 10/04/2022 2:21 AM OCCUPATIONAL ANALYST Testing was performed using the Xpert Xpress SARS-CoV-2 Assay on the [employer]. A dditional information about this [...] COVID-19. This test was validated by the [facility]. This laboratory is certified under the Clinical Laboratory Improvement Amendments of 1988 (CLIA-88) as qualified to perform high complexity laboratory testing. Shameka Goodman MD LAB - MICRO GENERAL ORDERABL ES Performing Organization Address City/[facility]/ZIP [facility] [place] [phone] Care Lab [address] [facility] Lab (1st floor, no room number) Adult Type and Screen (10/03/2022 10:34 PM OCCUPATIONAL ANALYST) [facility] Method Time Signature ABO/RH(D) O POS 10/03/2022 RH BLOOD 10:15 PM BANK OCCUPATIONAL ANALYST Antibody Negative Negative 10/03/2022 RH BLOOD Screen 10:15 PM BANK OCCUPATIONAL ANALYST SPECIMEN [id number] 10/03/2022 RH BLOOD EXPIRATION 10:15 PM BANK DATE OCCUPATIONAL ANALYST Specimen Anatomical Collection Method / Collection Time Recei clint Time (Source) Location / Volume Laterality Blood BLOOD SPECIMEN / Venipuncture / 10/03/2022 10:34 10/03 Unknown Unknown PM OCCUPATIONAL ANALYST 11:08 PM OCCUPATIONAL ANALYST Adirana Bernal MD LAB - BLOOD BANK TEST ORDER Performing Organization Address City/[facility] Phon e Number RH BLOOD BANK [address] [place] [address] (ABNORMAL) CBC with platelets (10/03/2022 10:34 PM OCCUPATIONAL ANALYST) [employer] Method Time Signature WBC Count 16.2 (H) 4.0 - 11.0 10/03/2022 RH LABORATORY 10e3/uL 11:11 PM OCCUPATIONAL ANALYST RBC Count 4.48 3.80 - 10/03/2022 RH LABORATORY 5.20 11:11 PM OCCUPATIONAL ANALYST 10e6/uL Hemoglobin 13.8 11.7 - 10/03/2022 RH LABORATORY 15.7 g/dL 11:11 PM OCCUPATIONAL ANALYST Hematocrit 41.3 35.0 - 10/03/2022 RH LABORATORY 47.0 % 11:11 PM OCCUPATIONAL ANALYST MCV 92 78 - 100 10/03/2022 RH LABORATORY fL 11:11 PM OCCUPATIONAL ANALYST MCH 30.8 26.5 - 10/03/2022 RH LABORATORY 33.0 pg 11:11 PM OCCUPATIONAL ANALYST MCHC 33.4 31.5 - 10/03/2022 RH LABORATORY 36.5 g/dL 11:11 PM OCCUPATIONAL ANALYST RDW 13.7 10.0 - 10/03/2022 RH LABORATORY 15.0 % 11:11 PM OCCUPATIONAL ANALYST Platelet Count 260 150 - 450 10/03/2022 RH LABORATORY 10e3/uL 11:11 PM OCCUPATIONAL ANALYST Specimen Anatomical Collection Method / Collection Time Recei clint Time (Source) Location / Volume Laterality Blood BLOOD SPECIMEN / Venipuncture / 10/03/2022 10:34 10/03 Unknown Unknown PM OCCUPATIONAL ANALYST 11:08 PM OCCUPATIONAL ANALYST Adriana Bernal MD LAB - BLOOD ORDERABLES Performing Organization Address City/State/ZIP Code [place] [phone] Care Lab [address] Lab (1st floor, no room number) Treponema Abs w Reflex to RPR and Titer (10/03/2022 10:34 PM OCCUPATIONAL ANALYST) [facility] Method Time Signature Treponema Nonreactive Nonreactive 10/04/2022 SPECIALTY Antibody 11:20 AM OCCUPATIONAL ANALYST CORE/PROT/EN Total DO Specimen Anatomical Collection Method / Collection Time Recei clint Time (Source) Location / Volume Laterality Blood BLOOD SPECIMEN / Venipuncture / 10/03/2022 10:34 10/03 Unknown Unknown PM OCCUPATIONAL ANALYST 11:08 PM OCCUPATIONAL ANALYST Adriana Bernal MD LAB - BLOOD ORDERABLES Performing Organization Address City/State/ZIP Code Phon e Number [facility] CORE/PROT/ENDO [facility] [place] [address] Core/Prot/Endo [address] [facility] [address] Building, Room 3-580 Group B Streptococcus (External Result) (09/11/2022 9:19 AM CDT) [facility] Method Time Signature Group B Negative Negative [facility] (External) Specimen (Source) Anatomical Collection Method Collection Time Re ceived Time Location / / Volume Laterality 09/11/2022 9:19 AM CDT Patient Reported LAB - HIM EXTERNAL RESULT Performing Organization Address [facility] e [address] [address] Rubella Antibody IgG (External Result) (03/10/2022 1:51 PM CDT) P athologist Signature Rubella Immune Nonreactive [facility] (External) Specimen (Source) Anatomical Collection Method Collection Time Re ceived Time Location / / Volume Laterality 03/10/2022 1:51 PM CDT Patient Reported LAB - HIM EXTERNAL RESULT Performing Organization Address [facility]/[address] [address] Hepatitis B Surface Antigen (External Result) (03/10/2022 1:51 PM CDT) [facility] Method Time Signature Hepatitis B Negative Nonreactive [facility] Antigen (External) Specimen (Source) Anatomical Collection Method Collection Time Re ceived Time Location / / Volume Laterality 03/10/2022 1:51 PM CDT Patient Reported LAB - HIM EXTERNAL RESULT Performing Organization Address [facility] [address] [place] [address] HIV-1 Antibody (External Result) (03/10/2022 1:51 PM CDT) [facility] gist Method Time Signature HIV 1&2 Negative Nonreactive [facility] (External) Specimen (Source) Anatomical Collection Method Collection Time Re ceived Time Location / / Volume Laterality 03/10/2022 1:51 PM CDT Patient Reported LAB - HIM EXTERNAL RESULT Performing Organization Address [facility] [address] [place] [id number] documented in this encounter Visit Diagnoses Diagnosis Labor and delivery indication for care o r intervention - Primary Unspecified indication for care or inter vention related to labor and delivery, unspecified as to episode of care S/P section Other postprocedural status , delivered documented in this encounter Admitting Diagnoses Diagnosis Labor and delivery indication for care o r intervention Unspecified indication for care or inter vention related to labor and delivery, unspecified as to episode of care documented in this encounter Administered Medications Inactive Administered Medications - up to 3 most recent administrations Medication Order MAR Action Action Date Dose Rate Site acetaminophen (TYLENOL) tablet Given 10/05/2022 10:36 AM OCCUPATIONAL ANALYST 650 mg 650 mg 650 mg, Oral, EVERY 4 HOURS PRN, mild pain, fever, greater than or equal to 38?? C /100.4?? F (oral) or 38.5?? C/ 101.4?? F (core)., Starting on Thu10/03/22 at 2329, Maximum acetaminophen dose from all sources = 75 mg/kg/day not to exceed 4 grams/day., Given 10/05/2022 6:08 AM OCCUPATIONAL ANALYST 650 mg Given 10/05/2022 1:42 AM OCCUPATIONAL ANALYST 650 mg benzocaine (AMERICAINE) 20 % topical spr ay Given 10/04/2022 9:17 AM OCCUPATIONAL ANALYST Topical, 4 TIMES DAILY PRN, perineal pain, Starting on Thu10/03/22 at 2329, bisacodyl (DULCOLAX) suppository 10 mg 10 mg, Rectal, DAILY PRN, constipation, Starting on Thu10/03/22 at 2329, Do not administer if patient has 3rd or 4th deg ree lacerations. Hold for loose stools., carboprost (HEMABATE) injection 250 mcg 250 mcg, Intramuscular, EVERY 15 MIN PRN , ONLY for uterine atony with significant bleeding POST-DELIVERY, Starting on Thu10/03/22 at 23 29, Notify provider IF uterine atony and clarify with provider medication preference. Administer only if directed by provider. Give with caution in patients with asthma, active pulmonary, hepatic, renal or cardiovascular disease., docusate sodium (COLACE) capsule 100 mg Given 10/05/2022 7:49 AM OCCUPATIONAL ANALYST 100 mg 100 mg, Oral, DAILY, First dose on Thu10/04/22 at 0900, Hold for loose stools., Given 10/04/2022 9:07 AM OCCUPATIONAL ANALYST 100 mg fentaNYL (PF) (SUBLIMAZE) injection 100 mcg Given 10/03/2022 11:04 PM OCCUPATIONAL ANALYST 100 mcg 100 mcg, Intramuscular, ONCE, On Thu10/03/22 at 2300, For 1 dose hydrocortisone (Perianal) (ANUSOL-HC) 2. 5 % cream Rectal, 3 TIMES DAILY PRN, hemorrhoids, Starting on Thu10/03/22 at 2329, Apply to hemorrhoids. Send only if nurse requests., ibuprofen (ADVIL/MOTRIN) tablet 800 mg Given 10/05/2022 7:49 AM OCCUPATIONAL ANALYST 800 mg 800 mg, Oral, EVERY 6 HOURS PRN, other, cramping, Starting on Thu10/03/22 at 2329, Start 6 hours after ketorolac is completed (if ordered). Max dose: 3200 mg/day Give with food., Given 10/05/2022 1:42 AM OCCUPATIONAL ANALYST 800 mg Given 10/04/2022 7:47 PM OCCUPATIONAL ANALYST 800 mg ketorolac (TORADOL) injection 30 mg Given 10/04/2022 12:26 AM OCCUPATIONAL ANALYST 30 mg 30 mg, Intravenous, ONCE PRN, moderate to severe pain, for mild to moderate pain, Starting on Thu10/03/22 at 2209, For 5 days, Give immediately x 1 dose. Any patient with renal function concerns should have a serum creatinine drawn and creatinine clearance calculated. If creatinine clearance is 30-50 ml/min give 15 mg, if less than 30 ml/min do not administer ketorolac. Can cause pain on injection. If ordered intravenously (IV) : administer through a running maintenance fluid over 1 minute followed by a flush. If patient complains of pain on injection, may dilute 15-30 mg in 5 mL and push over 1 to 2 minutes. , lactated ringers BOLUS 1,000 mL New Bag 10/03/2022 10:26 PM OCCUPATIONAL ANALYST 1,000 mLs Intravenous, 1,000 mL, ONCE PRN, IF patient to have epidural or intrathecal narcotics and NOT pre-eclamptic, Starting on Thu10/03/22 at 2209, For 1 dose, IV bolus must be initiated 15-30 min prior to epidural or intrathecal, then IV fluids per labor orders. Nurse may discontinue this order if duplicate., Intrapartum lanolin cream Topical, EVERY 1 HOUR PRN, other, sore n ipples, Starting on Thu10/03/22 at 2329, Apply to sore nipples., lidocaine (PF) (XYLOCAINE) 1 % injection Starting on Thu10/03/22 at 2212, For 1 dose, Abdiel Ledbetter: cabinet override lidocaine 1 % 0.1-20 mL Given 10/03/2022 10:52 PM OCCUPATIONAL ANALYST 5 mLs 0.1-20 mL, Subcutaneous, ONCE PRN, episiotomy/laceration repair, Starting on Thu10/03/22 at 2209, For 1 dose, Available for provider administration after delivery., methylergonovine (METHERGINE) injection 200 mcg 200 mcg, Intramuscular, EVERY 2 HOURS NV N, ONLY for uterine atony with significant bleeding POST-DELIVERY, Starting on Thu10/03/22 at 23 29, Notify provider IF uterine atony and clarify with provider medication preference. Administer only if directed by provider. Contraindicated if Blood Pressur e greater than 140/90, preeclampsia, or hypertension., misoprostol (CYTOTEC) tablet 400 mcg 400 mcg, Oral, GIVE ONCE PRN AND REPEAT ACCORDING TO I NSTRUCTIONS, post- hemorrhage, Starting on Thu10/03/22 at 2329, Administ er only if directed by provider. Max administrations: 4 doses, misoprostol (CYTOTEC) tablet 800 mcg 800 mcg, Rectal, GIVE ONCE PRN AND REPEA T ACCORDING TO INSTRUCTIONS, post- hemorrhage, Starting on Thu10/03/22 at 2329, Give rectally if unable to take oral without complications. Administer only if directed by provider. Max administrations: 4 doses., No MMR Needed - Assessment: Patient does not need MMR vaccine CONTINUOUS PRN, Starting on Thu10/03/22 at 2329, Unti l [place] 10/05/22 at 1407, Assessment: Patient does not need MMR immunization, Po stpartum No Tdap Needed - Assessment: Patient todd s not need Tdap vaccine CONTINUOUS PRN, Starting on Thu10/03/22 at 2329, Unti l [place] 10/05/22 at 1407, Assessment: Patient does not need Tdap immunization, P ostpartum oxytocin (PITOCIN) 10 UNIT/ML injection Starting on Thu10/03/22 at 2211, For 1 dose, Abdiel Ledbetter: cabinet override oxytocin (PITOCIN) 30 units Rate/Dose Change 10/03/2022 11:50 PM 10 0 mL/hr 100 mL/hr in 500 mL 0.9% NaCl OCCUPATIONAL ANALYST infusion 100-340 mL/hr, Intravenous, CONTINUOUS PRN, After delivery to prevent uterine atony, Starting on Thu10/03/22 at 2209, Give after delivery to prevent uterine atony per provider direction. Administer 340 mL/hr over 30 minutes for a total of 170 mL, then decrease to 100 mL/hr until infusion complete (about 3.5 hours) or per provider direction. Start new bag at delivery. Discontinue or saline lock peripheral IV per nurse discretion., New Bag 10/03/2022 11:21 PM OCCUPATIONAL ANALYST 340 mL/hr 340 mL/hr oxytocin (PITOCIN) 30 units in 500 mL 0. 9% NaCl infusion 340 mL/hr, Intravenous, CONTINUOUS PRN, for hemorrhage (PPH) UNTIL bleeding subsided., Starting on Thu10/03/22 at 2329, When bleeding subsides decrease rate to 100 mL/hr. Notify provider immediatel y when infusion begun. Oxytocin is first line medication for PPH., oxytocin (PITOCIN) injection 10 Units 10 Units, Intramuscular, ONCE PRN, Give after delivery to prevent uterine atony., Starting on Thu10/03/22 at 2209, For 1 dose, Give aft er delivery to prevent uterine atony if no IV access is available per provide r direction., oxytocin (PITOCIN) injection 10 Units Given 10/03/2022 10:50 PM OCCUPATIONAL ANALYST 10 Units 10 Units, Intramuscular, ONCE PRN, for hemorrhage (PPH), IF no IV access is available., Starting on Thu10/03/22 at 2209, For 1 dose, Notify provider immediately when injection given. Oxytocin is first line medication for PPH., Intrapartum oxytocin (PITOCIN) injection 10 Units 10 Units, Intramuscular, ONCE PRN, for p ostpartum hemorrhage (PPH), IF no IV access is available., Starting on Thu10/03/22 at 2329, For 1 dose, Notify provider immediately when injection given. Oxytocin is first li ne medication for PPH., tranexamic acid 1 g in 100 mL NS IV bag (premix) 1 g, Intravenous, Administer over 10 Minutes, EVERY 30 MIN PRN, Post- hemorrhage (PPH), Starting on Thu10/03/22 at 2329, Fo r 2 doses, Provider consultation REQUIRED and MUST be admini stered as soon as the ONSET of bleeding AND within 3 hours of regardless of ca use of the PPH (atony OR laceration). IF bleeding continues, a 2nd dose may be ad ministered after 30 minutes. IF concern for DIC (Disseminated Intravascular Coagulat ion), obtain coagulation studies PRIOR to administration. Contraindications includ e: history of PE (Pulmonary Emboli), DVT (Deep Vein Thrombosis) and current Subarachnoid hemorr adrianna and active DIC. Administer only if directed by provider., documented in this encounter Active and Recently Administered Medications Times are shown in OCCUPATIONAL ANALYST. Scheduled Medication Order 10/03/2022 10/04/2022 10/05/2022 docusate sodium (COLACE) capsule 100 mg 0907 (Given - Provider: Jie Valdovinos RN) 0749 (Given - Provider: Jie Valdovinos RN)0802 (Canceled Entry - Provider: Jie Valdovinos RN) 100 mg, Oral, DAILY, First dose on Sat 1 12/04/21 at 0900, Hold for loose stools., fentaNYL (PF) (SUBLIMAZE) injection 100 mcg (COMPLETED ) 2303 (Given - Provider: Jacinda Florez RN) 100 mcg, Intramuscular, ONCE, On Thu10/03/22 at 2300, For 1 dos e PRN Medication Order 10/03/2022 10/04/2022 10/05/2022 acetaminophen (TYLENOL) tablet 650 mg 05 08 (Given - Provider: Maddi Duran RN)0907 (Given - Provider: Jie Valdovinos RN)1343 (Not Given - Provider: Jie Valdovinos RN - Reason: Patient/family refused)1610 (Given - Provider: Jie Valdovinos RN) 0142 (Given - Provider: Uriel Lucio RN)0143 (Canceled Entry - Provider: Uriel Lucio RN)0608 (Given - Provider: ROBERT WOLF)1036 (Given - Provider: Jie Valdovinos RN) 650 mg, Oral, EVERY 4 HOURS PRN, mild pa in, fever, greater than or equal to 38?? C /100.4?? F (oral) or 38.5?? C/ 101.4?? F (core)., Starting on Thu10/03/22 at 9, Maximum acetaminophen dose from all 1946 (Given - Provider: ROBERT WOLF) sources = 75 mg/kg/day not to exceed 4 grams/day., benzocaine (AMERICAINE) 20 % topical spray 916 (Given - Provider: Jie Valdovinos, DIANA) Topical, 4 TIMES DAILY PRN, perineal dontrell n, Starting on Thu10/03/22 at 2328, bisacodyl (DULCOLAX) suppository 10 mg 10 mg, Rectal, DAILY PRN, constipation, Starting on Thu10/03/22 at 2328, Do not administer if patient has 3rd or 4th degree lacerations. Hold for loose stools., carboprost (HEMABATE) injection 250 mcg 250 mcg, Intramuscular, EVERY 15 MIN PRN , ONLY for uterine atony with significant bleeding POST-DELIVERY, Starting on Thu10/03/22 at 2328, Notify provider IF uterine atony and clarify with provider med ication preference. Administer only if d irected by provider. Give with caution in patients with asthma, active pulmonary, hepatic, renal or cardiovascular disease., hydrocortisone (Perianal) (ANUSOL-HC) 2.5 % cream Rectal, 3 TIMES DAILY PRN, hemorrhoids, Starting on Thu10/03/22 at 2328, Apply to hemorrhoids. Send only if nurse requests., ibuprofen (ADVIL/MOTRIN) tablet 800 mg 0 635 (Given - Provider: Maddi Duran RN)1307 (Given - Provider: Jie Valdovinos RN)1947 (Given - Provider: ROBERT WOLF) 0142 (Given - Provider: Uriel Lucio RN)0749 (Given - Provider: Jie Valdovinos RN) 800 mg, Oral, EVERY 6 HOURS PRN, other, cramping, Starting on Thu10/03/22 at 2328, Start 6 hours after ketorolac is completed (if ordered). Max dose: 3200 mg/day Give with food., ketorolac (TORADOL) injection 30 mg (CANCELED) 0026 (Given - Provider: Zee Aron, RN)1343 (See Alternative - Provider: Jie Valdovinos RN) 30 mg, Intravenous, ONCE PRN, moderate t o severe pain, for mild to moderate pain, Starting on Thu10/03/22 at 2209, For 5 days, Give immediately x 1 dose. Any patient with renal function conc erns should have a serum creatinine draw n and creatinine clearance calculated. If creatinine clearance is 30-50 ml/min give 15 mg, if less than 30 ml/min do not administer ketorolac. Can cause pain on i njection. If ordered intravenously (IV) : administer through a running maintenance fluid over 1 minute followed by a flush. If patient complains of pain on injection, may dilute 15-30 mg in 5 mL and push over 1 to 2 minutes. , lactated ringers BOLUS 1,000 mL (COMPLETED) 2225 (New Bag - Provider: Cara Ledbetter RN) Intravenous, 1,000 mL, ONCE PRN, IF khanh ent to have epidural or intrathecal narcotics and NOT pre-eclamptic, Starting on Thu10/03/22 at 2209, For 1 dose, IV bolus must be initiated 15-30 min prior to e pidural or intrathecal, then IV fluids p er labor orders. Nurse may discontinue this order if duplicate., Intrapartum lanolin cream Topical, EVERY 1 HOUR PRN, other, sore n ipples, Starting on Thu10/03/22 at 2329, Apply to sore nipples., lidocaine 1 % 0.1-20 mL (COMPLETED) 2251 (Given - Provider: Cara Ledbetter RN) 0.1-20 mL, Subcutaneous, ONCE PRN, episi otomy/laceration repair, Starting on Thu10/03/22 at 2209, For 1 dose, Available for provider administration after delivery., methylergonovine (METHERGINE) injection 200 mcg 200 mcg, Intramuscular, EVERY 2 HOURS NV N, ONLY for uterine atony with significant bleeding POST-DELIVERY, Starting on Thu10/03/22 at 2329, Notify provider IF uterine atony and clarify with provider me dication preference. Administer only if directed by provider. Contraindicated if Blood Pressure greater than 140/90, preeclampsia, or hypertension., misoprostol (CYTOTEC) tablet 400 mcg(Linked Group 1) 400 mcg, Oral, GIVE ONCE PRN AND REPEAT ACCORDING TO INSTRUCTIONS, post- hemorrhage, Starting on Thu10/03/22 at 2329, Administer only if directed by provider. Max administrations: 4 doses, misoprostol (CYTOTEC) tablet 800 mcg(Linked Group 1) 800 mcg, Rectal, GIVE ONCE PRN AND REPEA T ACCORDING TO INSTRUCTIONS, post- hemorrhage, Starting on Thu10/03/22 at 2329, Give rectally if unable to take oral without complications. Administer only if directed by provider. Max administrations: 4 doses., Postpar seth No MMR Needed - Assessment: Patient does not need MMR vaccine CONTINUOUS PRN, Starting on Thu10/03/22 at 2329, Until 10/05/22 at 1407, Assessment: Patient does not need MMR immunization, No Tdap Needed - Assessment: Patient does not need Tdap vaccine CONTINUOUS PRN, Starting on Thu10/03/22 at 2329, Until 10/05/22 at 1407, Assessment: Patient does not need Tdap immunization, oxytocin (PITOCIN) 30 units in 500 mL 0.9% NaCl infusi on 2320 (New Bag - Provider: Zee Sharp, RN)0 (Rate/Dose Change - Provider: Zee Sharp, RN) 100-340 mL/hr, Intravenous, CONTINUOUS P RN, After delivery to prevent uterine atony, Starting on Thu10/03/22 at 2209, Give after delivery to prevent uterine atony per provider direction. Administer 340 mL/hr over 30 minutes for a total of 17 0 mL, then decrease to 100 mL/hr until infusion complete (about 3.5 hours) or per provider direction. Start new bag at delivery. Discontinue or saline lock peripheral IV per nurse discretion., oxytocin (PITOCIN) 30 units in 500 mL 0.9% NaCl infusion 340 mL/hr, Intravenous, CONTINUOUS PRN, for hemorrhage (PPH) UNTIL bleeding subsided., Starting on Thu10/03/22 at 2329, When bleeding subsides decrease rate to 100 mL/hr. Notify provider imm ediately when infusion begun. Oxytocin i s first line medication for PPH., oxytocin (PITOCIN) injection 10 Units 10 Units, Intramuscular, ONCE PRN, Give after delivery to prevent uterine atony., Starting on Thu10/03/22 at 2209, For 1 dose, Give after delivery to prevent uterine atony if no IV access is available per provider direction., oxytocin (PITOCIN) injection 10 Units (COMPLETED) 2250 (Given - Provider: Cara Ledbetter RN) 10 Units, Intramuscular, ONCE PRN, for p ostpartum hemorrhage (PPH), IF no IV access is available., Starting on Thu10/03/22 at 2209, For 1 dose, Notify provider immediately when injection given. Oxytocin is first line medication for PPH., Intrapartum oxytocin (PITOCIN) injection 10 Units 10 Units, Intramuscular, ONCE PRN, for p ostpartum hemorrhage (PPH), IF no IV access is available., Starting on Thu10/03/22 at 2329, For 1 dose, Notify provider immediately when injection given. Oxytocin is first line medication for PPH., tranexamic acid 1 g in 100 mL NS IV bag (premix) 1 g, Intravenous, Administer over 10 Min utes, EVERY 30 MIN PRN, Post- hemorrhage (PPH), Starting on Thu10/03/22 at 2329, For 2 doses, Provider consultation REQUIRED and MUST be administered as so on as the ONSET of bleeding AND within 3 hours of regardless of cause of the PPH (atony OR laceration). IF bleeding continues, a 2nd dose may be administered after 30 minutes. IF concern for DIC ( Disseminated Intravascular Coagulation), obtain coagulation studies PRIOR to administration. Contraindications include: history of PE (Pulmonary Emboli), DVT (Deep Vein Thrombosis) and current Subarachn oid hemorrhage and active DIC. Administe r only if directed by provider., Linked Groups Order Group 1: misoprostol (CYTOTEC) tablet 400 mcgJump to med 400 mcg, Oral, GIVE ONCE PRN AND REPEAT ACCORDING TO INSTRUCTIONS, post- hemorrhage, Starting on Thu10/03/22 at 2329
Administer only if directed by provider. Max administrations: 4 doses
Or misoprostol (CYTOTEC) tablet 800 mcgJump to med 800 mcg, Rectal, GIVE ONCE PRN AND REPEA T ACCORDING TO INSTRUCTIONS, post- hemorrhage, Starting on Thu10/03/22 at 2329
Give rectally if unable to take oral without complications. Adminis ter only if directed by provider. Max ad ministrations: 4 doses.
documented in this encounter Care Teams [employer] Relationship Specialty Start Date End Date Karen Garza PA-C PCP - General Family Medicine 02/28/21 [address] , [address] [id number] Karen Garza PA-C Assigned PCP 07/05/22 [address] , [address] [id number] documented as of this encounter
--- OUTSIDE RECORDS SUMMARY | 2022-10-10 23:51 | XMS_ITS | Encounter Summary ---
:1995 Author Organization [facility] Address [address] [facility] [address] Care Team Providers Name Role Phone Karen Garza PA-C Unavailable [phone] Gretta Fishman CNM Unavailable Karen Garza PA-C Primary Care Provider [phone] Reason for Visit Reason Comments Induction Of Labor Auth/Cert Specialty Diagnoses / Procedures Referred By Contact Refer red To Contact computer network engineer Diagnoses Indication for care in labor or delivery Indication for care in labor or delivery Rh Procedures labor and delivery [address] [place], [place] [address] Phone: Fax: Referral ID Status Reason Start Date Expiration Date Visits Requ ested Visits Authorized [id number] 1 1 Encounter Details Date Type Department Care Team Description 04/21/2021 - Hospital Encounter [facility] Destiny Kate MD [facility] [id number] [place], [place] [id number] S/P 04/25/2021 [facility] Adriana Bernal MD [facility] [address] [facility] [address] [place] [id number] section (Primary [address] Dx) [place] [id number] Social History Tobacco Use Types Packs/Day Years [...] / COVID-19? documented as of this encounter Last Filed Vital Signs Vital Sign Reading Time Taken Comments Blood Pressure 117/73 04/25/2021 8:11 AM CDT Pulse 63 04/25/2021 8:11 AM CDT Temperature 36.5 ??C (97.7 ??F) 04/25/2021 8:11 AM CDT Respiratory Rate 18 04/25/2021 8:11 AM CDT Oxygen Saturation 95% 04/23/2021 1:11 PM CDT Inhaled Oxygen Concentration - - Weight 89.2 kg (196 lb 9.6 oz) 04/21/2021 8:02 PM CDT Height 157.5 cm (5' 2) 04/21/2021 8:02 PM CDT Body Mass Index 35.96 04/21/2021 8:02 PM CDT documented in this encounter Discharge Summaries Shameka Goodman MD - 04/25/2021 8:50 AM CDT [facility] Discharge Summary Obstetrics Date of Admission: 04/21/2021 Date of Discharge: 04/25/2021 Discharging Provider: Shameka Goodman MD Date of Service (when I saw the patient): 04/25/21 Discharge Diagnoses Primary section ABLA Procedure/Surgery Information Procedure: Procedure(s): SECTION Surgeon(s): Surgeon(s) and Role: * Adriana Bernal MD - Primary * Morales Sutherland - Assisting History of Present Illness Yancy Watts is a 26 year old female who presented for scheduled induction due to post dates.Her was complicated by covid in early and PUPPS. Induction was initiated with 4 doses of oral misoprostol, with onset of regular contractions and appropriate cervical change to 4 cm. At that time, the patient received an uncomplicated epidural for labor analgesia. Around 910 this morning, artificial rupture membranes was attempted, with scant return of fluid and Pitocin augmentation was started and this was titrated up to a maximum of 4 milliunits/min. The patient was noted to becomplete shortly after 1300, and began pushing at 1340, and I was in the room at 1415. ??At that time, exam was done, and station was 0 to +1, with 1 to 2 cm of caput. ??After assessing sutures, it wasdeemed that the patient was LOP, and somewhat asynclitic given access room the left side. ??At that time, pushing was on the back, using the bed handles. ??At that time, we tried pushing on right lateral, we then switched to left lateral, we also tried tug-of-war as well as again supine over the next 60 minutes. ??Despite excellent effort by the patient, there was no additional descent, and increasing caput to 2 to 3 cm. ??During this time, the heart rate tracing also became category 2 with a baseline of 175 180 with minimal to moderate variability. ??There was also occasional variable decelerations with sydnie to the low 100s. ??Given no additional descent, as well as category 2 heart rate tracing with no evidence of chorioamnionitis as the patient is afebrile, decision was made to move towards delivery. Hospital Course The patient's hospital course was post-op was unremarkable. She recovered as anticipated and experienced no post-operative complications. On discharge, her pain was well controlled. Vaginal bleeding issimilar to peak menstrual flow. Voiding without difficulty. Ambulating well and tolerating a normal diet. No fever or significant wound drainage. well. Infant is stable. She was discharged on post- day #3. Post- hemoglobin: Hemoglobin Date Value Ref Range Status 04/23/2021 11.1 (L) 11.7 - 15.7 g/dL Final Judith Chan, DO, DO Discharge Disposition Discharged to home Condition at discharge: Stable Pending Results Final pathology results: No pathology submitted Primary Care Physician Karen Garza Consultations This Hospital Stay ANESTHESIOLOGY IP CONSULT HOME CARE POST / IP CONSULT IP CONSULT Discharge Orders No discharge procedures on file. Discharge Medications Current Discharge Medication List START taking these medications Details acetaminophen (TYLENOL) 325 MG tablet Take 2 [...] tablet, Refills: 1 Associated Diagnoses: S/P section CONTINUE these medications which have NOT CHANGED Details cetirizine (ZYRTEC) 10 MG tablet Take 10 mg by mouth daily Vit-Fe Fumarate-FA ( VITAMIN) 27-0.8 MG TABS triamcinolone (KENALOG) 0.1 % external cream Apply sparingly to affected area twice daily for one week Qty: 80 g, Refills: 0 Associated Diagnoses: Dermatitis Allergies Allergies Allergen Reactions ??? Zithromax [Azithromycin] rash documented in this encounter Discharge Instructions Discharge Sanaz Smart RN - 04/25/2021 10:18 AM CDT Images from the original note were not included. Home care: Schedule a follow up appointment with computer network engineer in 6 weeks. Discharge Instructions for Section () You had a section, or . During the , your baby was delivered through an incision in your stomach and uterus. Full recovery after a can take time. It???s important to take care of yourself -- for your own sake and because your new baby needs you. Here are some guidelines to follow at home. Incision care Here's how to take care of your incision: ?? Shower as needed. Pat your incision dry. ?? Watch your incision for signs of infection, like??more redness or drainage. ?? Hold a pillow against the incision when you laugh or cough and when you get up from a lying or sitting position. ?? Remember, it can take as long as??6??weeks for??your incision to heal. Activity Here are some suggestions: ?? Don???t try to take care of anyone other than your baby and yourself. ?? Remember, the more active you are, the more likely you are to have an increase in your bleeding. ?? Get lots of rest. Take naps in the afternoon. ?? Increase your activities bit by bit. ?? Plan your activities so that you don???t have to go up or down stairs more than needed. ?? Do postsurgical deep breathing and coughing exercises. Ask your??healthcare provider for instructions. ?? Don???t lift anything heavier than your baby until your??healthcare provider tells you it???s OK. ?? Don???t drive until your??healthcare provider says it???s OK. ?? Don???t have sexual intercourse until after you???ve had a checkup with your??healthcare providerand??you have decided on a control method. ?? Allow others to do things for??you. Don't hesitate to ask for help. Follow-up Make a follow-up appointment as directed by our staff. When to call your healthcare provider Call your healthcare provider right away if you have any of these: ?? Fever of??100.4??F??(38??C) or higher ?? Redness, pain, or drainage at your incision site ?? Bleeding that requires a new sanitary pad every hour ?? Severe pain in the abdomen ?? Pain or urgency with urination ?? Foul odor from vaginal discharge ?? Trouble urinating or emptying your bladder ?? No bowel movement within 1 week after the of your baby ?? Swollen, red, painful area in the leg ?? Appearance of rash or hives ?? Sore, red, painful area on the breasts that??may come with??flu-like symptoms ?? Feelings of anxiety, panic, and/or depression [employer]io last reviewed this educational content on 12/24/2017 ?? [id number] [employer], [employer]. All rights reserved. This information is not intended as a substitute for professional medical care. Always follow your healthcare professional's instructions. documented in this encounter Medications at Time of Discharge Medication Sig Dispensed Refills Start Date End Date acetaminophen (TYLENOL) Take 2 tablets (650 mg) 0 04/25/2021 325 MG by mouth every 4 hours tabletIndications: S/P as needed for other section (multimodal surgical pain management along with NSAIDS and opioid medication as indicated based on pain control and physical function) cetirizine (ZYRTEC) 10 Take 10 mg by mouth 0 MG tablet daily ibuprofen (ADVIL/MOTRIN) Take 4 tablets (800 mg) 0 04/24/2021 200 MG by mouth every 6 hours tabletIndications: S/P as needed for other section (cramping) Vit-Fe 0 Fumarate-FA ( VITAMIN) 27-0.8 MG TABS senna-docusate Take 1 tablet by mouth 30 tablet 1 (SENOKOT-S/PERICOLACE) 2 times daily as needed 8.6-50 MG for constipation tabletIndications: S/P section triamcinolone (KENALOG) Apply sparingly to 80 g 0 04/23 0.1 % external affected area twice creamIndications: daily for one week Dermatitis documented as of this encounter Progress Notes Sanaz Connolly RN - 04/25/2021 11:07 AM CDT Discharge instructions reviewed with patient. All questions answered at this time. Pt has breast pump at home. Prescribed medication given. Home care order placed. Pt discharged home and left the hospital at 1100. Shameka Goodman MD - 04/25/2021 8:49 AM CDT Patient Name: Yancy Watts Age: [age] year old Date of : 1995 /POST-OPERATIVE PROGRESS NOTE Pt is POD#3 s/p C/S. She is doing well without complaints. Pt is ambulating and tolerating a regulardiet. Flowers is out and she is voiding without complication. Pain is well controlled with PO medication and lochia is within normal limits. She is . Baby is doing well. Objective: Temp: [97.7 ??F (36.5 ??C)-97.9 ??F (36.6 ??C)] 97.7 ??F (36.5 ??C) Pulse: [63-76] 63 Resp: [18] 18 BP: (112-117)/(72-73) 117/73 196 lbs 9.6 oz General Appearance: NAD, A&O x 3, comfortable Lungs: unlabored Cardiovascular: RRR Abdomen: soft, minimally distended; appropriately tender near incision; no rebound or guarding Fundus: firm, below the umbilicus Incision: clean, dry and intact Lower extremities: no significant edema Lab Review: Hemoglobin Date Value Ref Range Status 04/23/2021 11.1 (L) 11.7 - 15.7 g/dL Final 09/20/2020 13.5 11.7 - 15.7 g/dL Final 10/17/2019 14.5 11.7 - 15.7 g/dL Final Hematocrit Date Value Ref Range Status 09/20/2020 40.1 35.0 - 47.0 % Final 04/07/2016 41.0 35.0 - 47.0 % Final 02/20/2014 45.2 38 - 47 % Final Assessment: 26yo POD#3 s/p , doing well. ?? Plan: - Post-op: recovering well. Pain well controlled. Cont PO pain meds and regular diet. Encourage ambulation. - Anemia: cont PO iron. - Contraception: condoms - Dispo: anticipate DC today MD Doris Childress SALT MANAGER April 25, 2021 Judith Chan DO - 04/24/2021 9:13 AM CDT [facility] Obstetrics Post-Op / Progress Note Interval History Doing well. Pain is well-controlled. No fevers. No history of wound drainage, warmth or significant erythema. Good appetite. Denies chest pain, shortness of breath, nausea or vomiting. Ambulatory. well. Medications ??? dextrose 5% lactated ringers 125 mL/hr at 04/23/21 0041 ??? - MEDICATION INSTRUCTIONS - ??? NO Rho (D) immune globulin (RhoGam) needed - mother Rh POSITIVE ??? - MEDICATION INSTRUCTIONS - ??? oxytocin in 0.9% NaCl 100 mL/hr (04/23/21 0042) ??? oxytocin in 0.9% NaCl ??? acetaminophen 975 mg Oral Q6H ??? cetirizine 10 mg Oral Daily ??? ferrous sulfate 325 mg Oral Daily ??? senna-docusate 1 tablet Oral BID Or ??? senna-docusate 2 tablet Oral BID ??? sodium chloride (PF) 3 mL Intracatheter Q8H Physical Exam Temp: 97.6 ??F (36.4 ??C) Temp src: Oral BP: 104/67 Pulse: 65 Resp: 16 SpO2: 95 % O2 Device: None (Room air) Vitals: 04/21/212001 Weight: 89.2 kg (196 lb 9.6 oz) Vital Signs with Ranges Temp: [97.6 ??F (36.4 ??C)-98.6 ??F (37 ??C)] 97.6 ??F (36.4 ??C) Pulse: [62-72] 65 Resp: [16] 16 BP: (98-105)/(53-67) 104/67 SpO2: [95 %] 95 % I/O last 3 completed shifts: In: - Out: 400 [Urine:400] Uterine fundus is firm, non-tender and at the level of the umbilicus Incision C/D/I Data Recent Labs Lab Test 04/21/212039 ABO O O RH Pos Pos Neg Recent Labs Lab Test 04/23/21 0650 09/20/20 1416 HGB 11.1* 13.5 Recent Labs Lab Test 09/20/20 1416 RUQIGG 34 Assessment: 26yo POD#2 s/p , doing well. ?? Plan: - Post-op: recovering well. Pain well controlled. Cont PO pain meds and regular diet. Encourage ambulation. - Anemia: PO iron started. - Contraception: condoms - Dispo: anticipate DC POD#3 (tomorrow) Judith Chan DO Shameka Goodman MD - 04/23/2021 7:52 AM CDT Patient Name: Yancy Watts Age: [age] year old Date of : 1995 /POST-OPERATIVE PROGRESS NOTE Pt is POD#1 s/p C/S. She is doing well without complaints. Pt is ambulating and tolerating a regulardiet. Flowers is out and she is voiding without complication. Pain is well controlled with PO medication and lochia is within normal limits. She is . Baby is doing well. Objective: Temp: [97.7 ??F (36.5 ??C)-98.4 ??F (36.9 ??C)] (P) 97.7 ??F (36.5 ??C) Pulse: [63-72] (P) 65 Resp: [16-18] (P) 16 BP: (83-121)/(43-64) (P) 90/54 SpO2: [96 %-99 %] 99 % 196 lbs 9.6 oz General Appearance: NAD, A&O x 3, comfortable Lungs: unlabored Cardiovascular: RRR Abdomen: soft, minimally distended; appropriately tender near incision; no rebound or guarding Fundus: firm, below the umbilicus Incision: clean, dry and intact Lower extremities: no significant edema Lab Review: Hemoglobin Date Value Ref Range Status 04/23/2021 11.1 (L) 11.7 - 15.7 g/dL Final 09/20/2020 13.5 11.7 - 15.7 g/dL Final 10/17/2019 14.5 11.7 - 15.7 g/dL Final Hematocrit Date Value Ref Range Status 09/20/2020 40.1 35.0 - 47.0 % Final 04/07/2016 41.0 35.0 - 47.0 % Final 02/20/2014 45.2 38 - 47 % Final Assessment: 26yo POD#1 s/p , doing well. Plan: - Post-op: recovering well. Pain well controlled. Cont PO pain meds and regular diet. Encourage ambulation. - Anemia: PO iron started. - Contraception: condoms - Dispo: anticipate DC POD#3 MD Doris Childress SALT MANAGER April 23, 2021 Adriana Bernal MD - 04/22/2021 3:17 PM CDT [facility] Labor Progress Note S: Patient getting more tired with pushing. O: Patient Vitals for the past 4 hrs: BP Temp Temp src Resp 04/22/21 1448 -- 98 ??F (36.7 ??C) Oral -- 04/22/21 1419 -- 98.2 ??F (36.8 ??C) Oral -- 04/22/21 1259 105/53 -- -- 16 04/22/21 1227 96/53 -- -- -- 04/22/21 1158 98/55 -- -- 16 04/22/21 1128 121/58 -- -- 16 SVE: Complete, +1 station with 2-3 cm of caput Membranes: AROM at 0910 FHT: Baseline 175, minimal to moderate variability, accelerations absent, Variable decelerations [place]-Bacavi: Contractions every 2-5 minutes A/P: Ms. Yancy Watts is a 26 year old at 41w1d, here IOL secondary to late term gestation. Labor: - S/p PO misoprostol, AROM and pitocin, currently on 4 mu/min. The patient started pushing at 1340, and I was in the room at 1415. At that time, exam was done, and station was 0 to +1, with 1 to 2 cm of caput. After assessing sutures, it was deemed that the patient was LOP, and somewhat asynclitic given access room the left side. At that time, pushing was on the back, using the bed handles. At that time, we tried pushing on right lateral, we then switched to left lateral, we also tried tug-of-war aswell as again supine over the next 60 minutes. Despite excellent effort by the patient, there was noadditional descent, and increasing caput to 2 to 3 cm. During this time, the heart rate tracing also became category 2 with a baseline of 175 180 with minimal to moderate variability. Therewas also occasional variable decelerations with sydnie to the low 100s. Given no additional descent, as well as category 2 heart rate tracing with no evidence of chorioamnionitis as the patient is afebrile, decision was made to move towards delivery. - The risks, benefits, and alternatives of section were discussed, including the risks of bleeding, infection, injury to surrounding organs, injury. She consented to a blood transfusion in the event of a life threatening amount of bleeding. She had time to ask questions and agreed to proceed. Surgical consent was signed. - Pain: Comfortable with epidural FWB: - Category II FHT, non-reactive - Continuous EFM - Girl! PNC: - Rh positive, Rubella immune, GBS negative, GCT 84, Placenta posterior Other: - PUPPS rash; PRN hydrocortisone - Feed: Breast - Contraception: Condoms Adriana Neely MD Pager: [phone] April 22, 2021 Adriana Bernal MD - 04/22/2021 9:11 AM CDT [facility] Labor Progress Note S: Patient comfortable with epidural. O: Patient Vitals for the past 4 hrs: BP Resp 04/22/21 0857 (!) 88/49 -- 04/22/21 0829 (!) 83/45 16 04/22/21 0803 (!) 86/43 -- 04/22/21 0802 (!) 86/43 -- 04/22/21 0754 94/55 -- 04/22/21 0749 93/53 -- 04/22/21 0744 98/53 -- 04/22/21 0739 100/54 -- 04/22/21 0733 102/56 -- 04/22/21 0730 95/54 -- 04/22/21 0723 97/56 -- 04/22/21 0718 95/53 -- 04/22/21 0716 94/50 (P) 16 04/22/21 0714 100/57 -- 04/22/21 0712 96/53 -- 04/22/21 0710 98/51 -- 04/22/21 0708 115/63 -- SVE: /-2 Membranes: AROM was attempted but there was no bulging bag or certain membrane. scalp and haireasily appreciated with exam. Bloody discharge. FHT: Baseline 150, moderate variability, accelerations present, absent decelerations [place]-B[place]avi: Contractions every 2-5 minutes A/P: Ms. Yancy Watts is a 26 year old at 41w1d, here IOL secondary to late term gestation. Labor: - S/p PO misoprostol with onset of latent labor - Pain: Comfortable with epidural FWB: - Category I FHT, reactive - Continuous EFM - Girl! PNC: - Rh positive, Rubella immune, GBS negative, GCT 84, Placenta posterior Other: - PUPPS rash; PRN hydrocortisone - Feed: Breast - Contraception: Condoms Adriana Neely MD Pager: [phone] April 22, 2021 documented in this encounter H&P Notes Destiny Kate MD - 04/21/2021 7:43 PM CDT April 21, 2021 Yancy Watts [id number] OB Admit History & Physical Ms. Watts is here for scheduled induction secondary to late term. She has noticed occasional uterine contractions. Denies any vaginal bleeding, LOF. sttes +FM Patient's last menstrual period was 07/08/2020 (exact date). Her Estimated Date of Delivery: April 14, 2021, making her 41w0d. Estimated body mass index is 27.03 kg/m?? as calculated from the following: Height as of 05/09/20: 1.581 m (5' 2.25). Weight as of 09/20/20: 67.6 kg (149 lb). Her course has been complicated by COVID in early : - Growth US 02/21 EFW 2062g, 48%, MAURICE 11 - Declines covid vaccine at this time ?? PUPPS, improving - Kenalog 0.1% ointment PRN See for labs. neg GBS, Rubella Immune, RH Positive She is a 26 year old Her OB history: OB History Para Term AB Living 1 0 0 0 0 0 SAB TAB Ectopic Multiple Live Births 0 0 0 0 0 # Outcome Date GA Lbr Sherwin/2nd Weight Sex Delivery Anes PTL Lv 1 Current No past medical history on file. Past Surgical History: Procedure Laterality Date ??? DENTAL SURGERY [place] teeth. age 15 No current outpatient medications on file. Allergies: Zithromax [azithromycin] REVIEW OF SYSTEMS: NEUROLOGIC: Negative EYES: Negative ENT: Negative GI: Negative : Negative FRONT DESK COORDINATOR: Negative CV: Negative PULMONARY: Negative MUSCULOSKELETAL: Negative PSYCH: Negative Social History Socioeconomic History ??? Marital status: Spouse name: Humberto ??? Number of children: Not on file ??? Years of education: Not on file ??? Highest education level: Not on file Occupational History Employer: STUDENT Comment: [employer] ??? 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 Financial resource strain: Not on file ??? Food insecurity Worry: Not on file Inability: Not on file ??? Transportation needs Medical: Not on file Non-medical: Not on file Tobacco Use ??? Smoking status: Never Smoker ??? Smokeless tobacco: Never Used Substance and Sexual Activity ??? Alcohol use: Not Currently ??? Drug use: No ??? Sexual activity: Yes Partners: Male Lifestyle ??? Physical activity Days per week: Not on file Minutes per session: Not on file ??? Stress: Not on file Relationships ??? Social connections Talks on phone: Not on file Gets together: Not on file Attends cheondoism service: Not on file Active member of club or organization: Not on file Attends meetings of clubs or organizations: Not on file Relationship status: Not on file ??? Intimate partner violence Fear of current or ex partner: Not on file Emotionally abused: Not on file Physically abused: Not on file Forced sexual activity: Not on file Other Topics Concern ??? Service No ??? Blood Transfusions No ??? Caffeine Concern Not Asked ??? Occupational Exposure Not Asked ??? Hobby Hazards Not Asked ??? Sleep Concern Not Asked ??? Stress Concern Not Asked ??? Weight Concern Not Asked ??? Special Diet Not Asked ??? Back Care Not Asked ??? Exercise Yes ??? Bike Helmet Not Asked ??? Seat Belt Not Asked ??? Self-Exams Not Asked Social History Narrative ??? Not on file Family History Problem Relation Age of Onset ??? No Known Problems Mother ??? Hypertension Father ??? No Known Problems Sister ??? Cancer Paternal Grandfather ??? No Known Problems Maternal Grandmother ??? Cerebrovascular Disease Maternal Grandfather ??? Diabetes Type 1 Paternal Grandmother ??? Obesity Paternal Grandmother ??? Alzheimer Disease No family hx of ??? Diabetes No family hx of Exam: Vitals: LMP 07/08/2020 (Exact Date) [place]-B[place]avi: Occasional rare FHT: 130 bpm, mod, a +, d - Alert Awake in NAD HEENT grossly normal Neck: no lymphadenopathy or thryoidomegaly Lungs CTAB Back No CVAT Heart RR ABD gravid, NABS, soft, NT on exam with NT fundus palpable Cervix is 2/60/-2 per RN EXT: no edema, no calf tenderness Assessment/Plan: Yancy Watts is a 26 year old at 41w0d GA here for late term IOL. ANTEPARTUM Care: -OB labs reviewed:??O??positive, Rubella immune, HIV neg, Heb B nonreactive, Heb B immune, RPR negative -Genetics:??Declined?? -Anatomy ultrasound:??L2 with normal anatomy, posterior placenta, Girl!?? - Rh positive, Rhogam not indicated - GCT 84, Hgb 12.3 - S/p flu, Tdap??02/07/21 - GBS neg - Feed:??Breast with pumping, has breast pump - Continue PNV - Contraception: Condoms. IPI of 18 months reviewed. INTRAPARTUM - cervical ripening - PO cytotec - analgesia per protocol - ok for intermittent monitoring - FHT Cat I Destiny Kate MD Dept of SALT MANAGER April 21, 2021 documented in this encounter Miscellaneous Notes Plan of Care - Sanaz Connolly RN - 04/25/2021 10:09 AM CDT Data: Vital signs within normal limits. checks within normal limits - see flow record. Patient eating and drinking normally. Patient able to empty bladder independently and is up ambulating.No apparent signs of infection. Incision healing well. Patient performing self cares and is able to care for infant. Action: Patient medicated during the shift for pain. See MAR. Patient reassessed within 1 hour aftereach medication and pain was improved - patient stated she was comfortable. Patient education completed. See flow record. Response: Positive attachment behaviors observed with infant. present and supportive. Plan: Adequate for discharge. Plan of Care - Dayana Kohler RN - 04/25/2021 4:03 AM CDT Vitals stable. Incision site with liquid bandage, WNL, no drainage noted. Pain controlled with Ibuprofen and Tylenol with good relief. Independent with cares. using nipple shield with no assistance. Encouraged to call for assistance if needed. Bonding well with baby. Plan of Care - Sanaz Connolly RN - 04/24/2021 11:19 PM CDT Data: Vital signs within normal limits. checks within normal limits - see flow record. Patient eating and drinking normally. Patient able to empty bladder independently and is up ambulating.No apparent signs of infection. Incision healing well. Patient performing self cares and is able to care for infant. Action: Patient medicated during the shift for pain. See MAR. Patient reassessed within 1 hour aftereach medication and pain was improved - patient stated she was comfortable. Response: Positive attachment behaviors observed with infant. Plan: Anticipate discharge on 04/25/2021. Plan of Care - Prema Montes De Oca RN - 04/24/2021 1:34 PM CDT Stable patient meeting expected goals. Pain being managed with ibuprofen and tylenol. Incision healing well with no drainage, liquid bandage in place. Motherlove and hydrogel pads given for comfort. Independent with self cares. infant and pumping initiated today. Note - Latanya Martinez RN - 04/24/2021 12:20 PM CDT visit. [place] had been breast feeding on left breast with nipple shield. She self unlatched and appeared content with colostrum in shield. Burped and assisted to latch on right breast with nipple shield. [place] latched on shield with minimal assistance, but sucks were only pacifying. Nipple noted to not be fully inside nipple shield and compressing shield like a pacifier. Assistedwith repositioning shield and re-latching. latched and was only sucking in a pacifying motion. Unlatched and performed oral assessment and exercises to assess suck. After several minutes, was able to suck LC finger into mouth with more force and was no longer pacifying. Switched back to nipple shield full of colostrum. She continued to need several minutes of breast compression and stimulation before sucking in a nutritive way. Asha reports has only been sucking on breast inthat way, but states she has heard swallows. Once began transferring milk from breast, Rondaynoted the dramatic change in sucking and much more audible swallows.[place] then fed for 15 minutes actively with minimal stimulation to continue nutritive sucks. Patient reports having utilized a pacifier overnight after breast feed for 2 hours and then continued to be inconsolable. Reviewed different sucks, education provided on ways to help get in to nutritive sucking pattern, including hand expression and massage for 1-2 minutes prior to latching, correct nipple shield placement, correct positioning for latching, and breast compression throughout feeding to ensure milk is transferring to . Primary nurse brought pump to bedside and will provided education on pumping, which has been encouraged by heating and air conditioning mechanic due to 7% weight loss. Encouraged her to follow plan, and if needed, add/supplement hand expression to have a better effect on increasing milk supply transitioning in and getting more EBM with this method. Patient agrees with plan at this time. No further questions noted. Plan of Care - Savannah Guzman RN - 04/24/2021 5:07 AM CDT VSS. Up ad malu. and tolerating well, utilizing nipple shield at times. Scant amount oflochia, no clots noted. Incision open to air, CDI. Tylenol and Ibuprofen for pain control. BS audible/active x4, tolerating PO, denies N/V. Voiding. Bonding well with infant, attentive to cares. Significant other at bedside and supportive. Continue with plan of care. Note - Zaira Aponte RN - 04/23/2021 10:34 PM CDT in to see patient. Assisted with latch. Baby will latch but no suck. Patient had just finished a hour feed. Patient called out for assistance. Needing shield at bedside to start nutritive sucking. Pointed outsome swallows to Asha. Encouraged breast compressions through out feed to keep baby interested, lots of colostrum seen with hand expression. Discussed trying to get baby on without shield, knows to slip it on if baby struggling to maintain a deep latch. All questions answered, knows to feed frequent and lots of skin to skin. Plan of Care - Ashlee Lei RN - 04/23/2021 2:15 PM CDT Data: Vital signs within normal limits. checks within normal limits - see flow record. Patient eating and drinking normally. Patient able to empty bladder independently and is up ambulating.No apparent signs of infection. Patient performing self cares, is able to care for and is breast feeding every 2-3 hours. Incision appears within normal. Is using abd binder for incisional discomfort. Rested in bed this shift. Action: Patient medicated during the shift for cramping. See MAR. Patient reassessed within 1 hour after each medication and pain was improved - patient stated she was comfortable. Patient education done, see flow record. Response: Positive attachment behaviors observed with infant. Patient's support present this shift. Plan: Continue current plan of care. Anticipate discharge on 04/25/21. Plan of Care - Dayana Kohler RN - 04/23/2021 6:52 AM CDT Vitals stable. Ambulating independently to bathroom and performing cares. Incision site WNL with liquid bandage, no drainage noted. Pain controlled with Toradol and Tylenol. Able to void x2, small amounts so LR will continue to infuse. Assistance with needed. Spouse at bedside andsupportive, bonding well with baby. Plan of Care - Grace Marrufo RN - 04/22/2021 11:22 PM CDT Flowers removed per orders at 1945. Pt up to bathroom with 1 assist, unable to void, but tolerated ambulation well. Pain controlled with toradol and acetaminophen. Attentive to infant cares. Attempting to breast feed every 2-3 hours, baby interested but only latches for short period of time. Plan of Care - Padmini Benítez RN - 04/22/2021 8:04 PM CDT Data: Yancy Watts transferred to [facility] via cart at 1940. Baby transferred via parent's arms. Action: Receiving unit notified of transfer: Yes. Patient and family notified of room change. Reportgiven to Grace Zapata RN at 1940. Belongings sent to receiving unit. Accompanied by Registered Nurse.Oriented patient to surroundings. Call light within reach. ID bands double-checked with receiving RN. Response: Patient tolerated transfer and is stable. Verbal consent from mother and father to give Erythromycin eye ointment, Vitamin K injection and Hepatitis B vaccine after delivery. Patients mobililty level scored using the bedside mobility assistance tool (BMAT). Patient is at a mobility level test number: 1. Mobility equipment used: slider board. Required assist of 2 staff members. Further use of BMAT scoring required. Op Note - Adriana Bernal MD - 04/22/2021 4:53 PM CDT Section Operative Note Date: 04/22/2021 Patient: Yancy Watts Surgeon: Dr. Adriana Neely Wet Mixer: Dr. Morales Sutherland Pre-Op Diagnosis: - at 41w1d - Arrest of descent - Category II FHR tracing Post-Op Diagnosis: - delivery at 41w1d Procedure: Unscheduled primary low transverse section via pfannenstiel skin incision with two layer uterine closure. Anesthesia: Epidural with Durmorph QBL: 471cc IVF: 1200cc crystalloid UOP: Per MDA Complications: None apparent Specimens: Cord blood Indications: 26 year old admitted as a at 41w1d admitted for IOL secondary to late term gestation. Induction was initiated with 4 doses of oral misoprostol, with onset of regular contractions and appropriate cervical change to 4 cm. At that time, the patient received an uncomplicated epidural for labor analgesia. Around 910 this morning, artificial rupture membranes was attempted, with scant return of fluid and Pitocin augmentation was started and this was titrated up to a maximum of 4 milliunits/min. The patient was noted to be complete shortly after 1300, and began pushing at 1340, and I was in the room at 1415. At that time, exam was done, and station was 0 to +1, with 1 to 2 cm of caput. After assessing sutures, it was deemed that the patient was LOP, and somewhat asynclitic given access room the left side. At that time, pushing was on the back, using the bed handles. At that time, we tried pushing on right lateral, we then switched to left lateral, we also tried tug-of-war as well as again supine over the next 60 minutes. Despite excellent effort by the patient, there was no additional descent, and increasing caput to 2 to 3 cm. During this time, the heart rate tracing also became category 2 with a baseline of 175 180 with minimal to moderate variability. There was also occasional variable decelerations with sydnie to the low 100s. Given no additional descent, as well as category 2 heart rate tracing with no evidence of chorioamnionitis as the patient isafebrile, decision was made to move towards delivery. The risks, benefits, and alternativesof section were discussed, including the risks of bleeding, infection, injury to surrounding organs, injury. She consented to a blood transfusion in the event of a life threatening amount of bleeding. She had time to ask questions and agreed to proceed. Surgical consent was signed. Findings: Live-born female from the cephalic/LOP presentation born on 04/22/2021, apgars 9 & 9, weight 8# 1oz. Clear amniotic fluid. Placenta intact with a 3V cord. Normal uterus, tubes and ovaries. Procedure: The patient was taken to the operating room where epidural anesthesia was initiated and found to be adequate. She was placed in the dorsal supine position with a leftward tilt. A flowers catheter was placed. She was then prepped and draped in the usual sterile fashion and a time out was performed. A pfannenstiel skin incision was made and carried down to the underlying fascia. The fascial incision was extended laterally. The fascia was grasped and elevated, and the superior and inferior aspects were dissected away from the rectus muscles with blunt and sharp dissection. The rectus muscles were then at the midline and the peritoneum was entered bluntly. The peritoneal incision was extended with cautery. Jatin-O retractor was placed. A low transverse uterine incision was then made with the scalpel and the incision was extended laterally by finger fraction. The bladder blade wasremoved and the infant was delivered atraumatically. The cord was clamped and cut and the infant washanded off to the waiting team. The placenta was removed with gentle traction on the cord. The uterus was left in situ and cleared of all clots and debris. The hysterotomy was then closed with 0-Vicrylin a running, locked fashion. A second imbricating layer was then placed using 0-Monocryl. The hyster otomy was noted to be hemostatic. The posterior cul-de-sac was then cleared of all clots and debris.The uterus was replaced within the abdomen. The hysterotomy remained hemostatic. The pericolic gutters were cleared. The fascia and rectus muscles were inspected and noted to be hemostatic. The fascialincision was then closed with 0-Vicryl in a running fashion. The subcutaneous tissues were irrigatedand hemostasis achieved with the electrocautery prior to re- approximation using 3-0 plain gut suture. The skin was then closed with 3-0 Vicryl and sterile glue. All sponge, lap and needle counts were correct x 2. Ancef was given prior to skin incision, patient has an allergy to Azithromycin and thus, not given. The patient tolerated the procedure well and was taken to the PACU in stable condition. Adriana Neely MD Pager: [phone] April 22, 2021 Plan of Care - Judith Wren RN - 04/22/2021 3:[address] Christina purcell discussed POC with pt and regarding primary c section due to FTD. Parents amrik pitocin stopped. Provider Notification - Judith Wren RN - 04/22/2021 2:27 PM CDT 04/22/21 1413 Provider Notification Provider Name/Title christina purcell Method of Notification At Bedside Notification Reason Status Update pushing and coaching with pt and RN Provider Notification - Isaura Murray RN - 04/22/2021 1:28 PM CDT 04/22/21 1328 Provider Notification Provider Name/Title Dr Neely Method of Notification Phone Notification Reason Status Update Updated MD that RN will start pushing with pt. MD stated she will be on unit shortly. Provider Notification - Judith Wren RN - 04/22/2021 9:13 AM CDT SVE, attempt AROM no fluid seen, moderate bloody show, start pit Provider Notification - Judith Wren RN - 04/22/2021 8:36 AM CDT 04/22/21 0802 Provider Notification Provider Name/Kayla purcell Method of Notification Phone Notification Reason Status Update Plan of Care - Tawnya Dunn RN - 04/22/2021 6:25 AM CDT Patient has become more uncomfortable through out the night. Has received 2 doses of fentanyl and has been educated on other options for pain control. at bedside and supportive. Provider Notification - Tawnya Dunn RN - 04/22/2021 4:07 AM CDT 04/22/21 0406 Provider Notification Provider Name/Title Dr. Kate Method of Notification Electronic Page;Phone Request Evaluate - Remote Notification Reason Status Update;BRISA Kate updated of SVE /- with now a Nassar score of 8. Patient received fentynl for discomfort. To stop Cytotec and switch to Pitocin to start it at 0600. Will update patient of plan. Provider Notification - Leeanna Carrasquillo RN - 04/21/2021 8:24 PM CDT 04/21/212023 Provider Notification Provider Name/Title Dr. Kate Method of Notification Phone MD notified that SVE per primary RN was 2/60/-2 with a nassar score of 5 and patient would like to do PO cytotec for cervical ripening. Verbal orders from MD for cervical ripening and intrapartum ordersets and vistaril 25-50 mg PO PRN at bedtime for sleep. Will update primary Tawnya ORTIZ Plan of Care - Tawnya Dunn RN - 04/21/2021 8:00 PM CDT Patient and present to the hospital for induction of labor. documented in this encounter Plan of Treatment Not on filedocumented as of this encounter Procedures Procedure Name Priority Date/Time Associated Comments Diagnosis HEMOGLOBIN Routine 04/23/2021 6:50 AM Results f or this CDT procedure are i n the results section. SECTION 04/22/2021 3:48 PM 41 weeks gestation CDT of TREPONEMA ABS W STAT 04/21/2021 8:40 PM Result s for this REFLEX TO RPR AND CDT procedure are in TITER the results section. ABO/RH TYPE AND Routine 04/21/2021 8:40 PM Result s for this SCREEN CDT procedure are i n the results section. ABO AND RH STAT 04/21/2021 8:40 PM Results f or this CDT procedure are i n the results section. GROUP B STREP PCR Routine 03/21/2021 Results fo r this procedure are i n the results section. documented in this encounter Results (ABNORMAL) Hemoglobin (04/23/2021 6:50 AM CDT) P athologist Signature Hemoglobin 11.1 (L) 11.7 - 15.7 04/23/2021 [facility] g/dL 7:15 AM CDT [facility] Specimen Anatomical Collection Method Collection Time Receive d Time (Source) Location / / Volume Laterality Blood 04/23/2021 6:50 AM 6:51 CDT AM CDT Adriana Bernal MD LAB - BLOOD ORDERABLES Performing Organization Address City/[facility]/ZIP Code Phon e Number M [facility] [address], [place] [address] [facility] [address], [place] [address], [facility] [phone] ABO/Rh type and screen (04/21/2021 8:40 PM CDT) [facility] Method Time Signature ABO O 04/22/2021 [facility] 4:43 PM [facility] RH(D) Pos [facility] Antibody Neg 04/22/2021 [facility] Screen 4:43 PM [facility] Test Valid [place] 04/22/2021 [facility] Only At [facility] 4:44 PM [facility] Specimen 04/24/2021 04/22/2021 [facility] Expires 4:44 PM [facility] Specimen Anatomical Collection Method Collection Time Receive d Time (Source) Location / / Volume Laterality Blood 04/21/2021 8:40 PM 3:41 CDT PM CDT Adriana Bernal MD LAB - BLOOD BANK TEST ORDER Performing Organization Address City/[facility]/ZIP [facility] Phon e Number M [facility] [address], [place] [address] [facility] [address], [place] [address], [facility] [phone] ABO and Rh (04/21/2021 8:40 PM CDT) [facility] Method Time Signature ABO O 04/21/2021 [facility] 9:11 PM [facility] RH(D) Pos [facility] Specimen 04/24/2021 04/21/2021 [facility] Expires 9:06 PM [facility] Blood Bank Duplicate 04/22/2021 [facility] Comment request 4:44 PM [facility] Specimen Anatomical Collection Method Collection Time Receive d Time (Source) Location / / Volume Laterality Blood 04/21/2021 8:40 PM 8:51 CDT PM CDT Destiny Kate MD LAB - BLOOD BANK TEST ORDER Performing Organization Address [facility]/ZIP Code Phon e Number [facility] [address], [place] [address] [facility] [address], [place] [address] [facility] [phone] Treponema Abs w Reflex to RPR and Titer (04/21/2021 8:40 PM CDT) [facility] Method Time Signature Treponema Nonreactive NR^Nonrea 04/23/2021 [facility] ctive 10:27 AM CDT [facility] Comment: Methodology Change: Test performed on DiaSorin Liaison XL by Treponema pallidum Total Antibodies Assay as of . Specimen Anatomical Collection Method Collection Time Receive d Time (Source) Location / / Volume Laterality Blood 04/21/2021 8:40 PM 8:52 CDT PM CDT Destiny Kate MD LAB - BLOOD ORDERABLES Performing Organization Address City/State/ZIP Code Phon e Number [address] [address] [facility] Group B strep PCR (03/21/2021) athologist Signature Group B Strep negative PCR Patient Reported LAB - MICRO GENERAL ORDERABL ES documented in this encounter Visit Diagnoses Diagnosis S/P section - Primary Other postprocedural status S/P section Other postprocedural status Indication for care in labor or delivery Unspecified indication for care or inter vention related to labor and delivery, unspecified as to episode of care documented in this encounter Admitting Diagnoses Diagnosis Indication for care in labor or delivery Unspecified indication for care or inter vention related to labor and delivery, unspecified as to episode of care documented in this encounter Administered Medications Inactive Administered Medications - up to 3 most recent administrations Medication Order MAR Action Action Date Dose Rate Site acetaminophen (TYLENOL) tablet 975 Given 04/25/2021 9:14 AM CDT 975 mg mg 975 mg, Oral, EVERY 6 HOURS, First dose on Thu04/22/21 at 1900, For 3 days, Do not use if patient has an active opioid/acetaminophen combined analgesic product ordered for pain. Maximum acetaminophen dose from all sources = 75 mg/kg/day not to exceed 4 grams/day. Given 04/25/2021 3:00 AM CDT 975 mg Given 04/24/2021 9:15 PM CDT 975 mg cetirizine (zyrTEC) tablet 10 mg Given 04/25/2021 8:10 AM CDT 10 mg 10 mg, Oral, DAILY, First dose on Thu04/22/21 at 1730 Given 04/23/2021 7:20 AM CDT 10 mg dextrose 5% in lactated ringers New Bag 04/23/2021 12:41 AM CDT 125 mL/hr infusion at 125 mL/hr, Intravenous, CONTINUOUS, Subsequent IV at nurse's discretion. DC IV when tolerating fluids or at nurse's discretion & saline lock., Starting on Thu04/22/21 at 1730, Until Radha 04/25/21 at 1317 ePHEDrine injection 5 mg Given 04/22/2021 8:34 AM CDT 5 mg 5 mg, Intravenous, EVERY 3 MIN PRN, if Systolic Blood Pressure less than 100 mmHg, Starting on Thu04/22/21 at 0642, For 4 doses, If unresponsive to Fluid Bolus (if ordered), administer ePHEDrine. Repeat Blood Pressure check every 2 minutes until stable. If unresponsive to ePHEDrine, page Anesthesia. fentaNYL (PF) (SUBLIMAZE) injection 50-100 Given 04/22/2021 5:17 AM CDT 100 mcg mcg 50-100 mcg, Intravenous, EVERY 1 HOUR PRN, other, desired pain relief based on labor coping/body mass index/labor assessment., Starting on Thu04/21/21 at 2030, Start at the lowest dose or may give higher initial dose if labor coping/assessment warrants or as directed by provider. May adjust subsequent doses as needed for pain control based on patient response to first dose or labor coping. Hold dose for analgesic side effects. Notify provider to assess for uncontrolled pain or analgesic side effects. For ordered IV doses 1-100 mcg give IV Push undiluted over a minimum of 3-5 minutes. Given 04/22/2021 3:52 AM CDT 50 mcg fentaNYL (SUBLIMAZE) 2 New Syringe/Cartridge 04/22/2021 1:06 PM 10 mL/hr 10 mL/hr mcg/mL, bupivacaine CDT (MARCAINE) 0.125% in NS premix for PCEA PCEA dose (mL): 5, PCEA Lockout Interval (min): 15 minutes, Hour Limit (mL): 20, Continuous Rate (Basal Rate) (mL/hr): 10, Initial Set-up verified by: Tawnya Dunn RN and Dr. Mejia, PCEA Dose: Range 0-8 mL PCEA Lockout: Range 10-60 minutes One hour limit: Range 0.1 - 42 mL Continuous Infusion: Range 0-16 mL/hour Absolutely no anticoagulants, thrombolytics or antiplatelet medications or other opioid analgesics or other sedatives without prior notification of anesthesiology. For CADD cassettes, pharmacy to send epidural tubing set., Routine New Syringe/Cartridge 04/22/2021 7:25 AM CDT 10 mL/hr 10 mL/hr [id number] 0.2-0.125-0.9 MG/100ML-% injection Tawnya Gonzalez: cabinet override Absolutely no anticoag ulants, thrombolytics or antiplatelet medications or other opioid analgesics or other sedatives without prior notification of anesthesiology. Fo r CADD cassettes, pharmacy to send epidural tubing set., 1 dose, Starting on Thu04/22/21 at 0643, Until Thu04/22/21 at 0725 ferrous sulfate (FEROSUL) tablet 325 mg Given 04/25/2021 8:10 AM CDT 325 mg 325 mg, Oral, DAILY, First dose on Thu04/23/21 at 0900, Absorbed best on an empty stomach. If stomach upset occurs, can take with meals. Given 04/24/2021 8:02 AM CDT 325 mg Given 04/23/2021 8:30 AM CDT 325 mg ibuprofen (ADVIL/MOTRIN) tablet 800 mg Given 04/25/2021 6:12 AM CDT 800 mg 800 mg, Oral, EVERY 6 HOURS PRN, other, cramping, Starting on Thu04/23/21 at 1645, Start 6 hours after ketorolac is completed (if ordered). Max dose: 3200 mg/day Give with food. Given 04/24/2021 11:38 PM CDT 800 mg Given 04/24/2021 3:25 PM CDT 800 mg ketorolac (TORADOL) injection 15 mg Given 04/23/2021 12:17 PM CDT 15 mg 15 mg, Intravenous, EVERY 6 HOURS, First dose on 04/22/21 at 1730, For 24 hours, Give first dose in PACU (alright to give with narcotic analgesic if ordered) X 24 hours Can cause pain on injection. If ordered intravenously (IV) : administer through a running maintenance fluid over 1 minute followed by a flush. If patient complains of pain on injection, may dilute 15-30 mg in 5 mL and push over 1 to 2 minutes. Given 04/23/2021 5:14 AM CDT 15 mg Given 04/22/2021 10:40 PM CDT 15 mg lactated ringers infusion New Bag 04/22/2021 1:07 PM CDT 125 mL/hr 125 mL/hr at 125 mL/hr, Intravenous, CONTINUOUS, Starting on Thu04/21/21 at 2100, Until Thu04/22/21 at 1709 Rate/Dose Change 04/22/2021 7:00 AM CDT 999 mL/hr 999 mL/hr New Bag 04/22/2021 3:52 AM CDT 125 mL/hr lidocaine 1 % 0.1-20 mL Given 04/22/2021 1:08 PM CDT 10 mg 0.1-20 mL, Subcutaneous, ONCE PRN, episiotomy/laceration repair, Starting on Thu04/21/21 at 2028, For 1 dose, Available for provider administration after delivery. misoprostol (cervical ripening) (CYTOTEC) Given 04/22/2021 3:11 AM CDT 25 mcg quarter-tab 25 mcg 25 mcg, Oral, EVERY 2 HOURS PRN, cervical ripening, Starting on Thu04/21/21 at 2030, For 12 doses, After 24 hours of administration, if ineffective, provider may consider change to agent or mode of cervical ripening Discontinue further dosing if: - Uterine tachysystole - Cervical ripening achieved - Nassar Score greater than 5 if multipara; greater than 8 if primapara - Active vaginal bleeding - Active labor - Abnormal FHR tracing - Adverse maternal reactions (i.e., fever or nausea) Provider: Delay oxytocin induction/augmentation at least 2 hours after the last dose of misoprostol (CYTOTEC). Given 04/22/2021 1:03 AM CDT 25 mcg Given 04/21/2021 11:00 PM CDT 25 mcg naloxone (NARCAN) injection 0.2 mg 0.2 mg, Intravenous, EVERY 2 MIN PRN, op ioid reversal, Starting on Thu04/22/21 at 2046, Administer intravenous route when available and notify provider when administered. For unintended sedation or respiratory depression if all of the below criteria are met: ~ respiratory rate LES S than or EQUAL to 8. ~SaO2 less than 92% and or/end-tidal CO2 is greater than 50. ~ the patient is receiving an opioid, has unintended sedations assessed as RASS (-3), and is cur rently not on mechanical ventilation. RASS scale moderate (-3) is movement or eye opening to voice but no eye contact. Patient Monitoring Once the patient has demonstrated a response to the naloxone, continue to monitor respiratory rate, depth, oxygen saturation and end-tidal CO2 (if available) every 15 mi nutes x 2, then every 30 minutes x 2, then every 1 hour x 1 after each naloxone dose. Consider tr ansfer to ICU if patient respiratory parameters have not improved after 4 nalox one doses. For ordered IV doses 0.1-2mg give IVP. Give each 0.4mg over 15 seconds in emergency situations. For non-emergent situations further dilu te in 9mL of NS to facilitate titration of response. naloxone (NARCAN) injection 0.2 mg 0.2 mg, Intramuscular, EVERY 2 MIN PRN, opioid reversal, Starting on Thu04/22/21 at 2046, Administer intramuscular if an int ravenous route is not available and notify provider when administered. For unintend ed sedation or respiratory depression if all of the below criteria are met: ~ respiratory rate LESS than or EQUAL to 8. ~SaO2 less than 92% and or/end-tidal CO2 is greater th an 50. ~ the patient is receiving an opioid, has unintended sedations assessed as RASS (-3), and is currently not on mechanical ventilation. RASS scale moderate (-3) is movement or eye opening to voice but no eye contact. Patient Monitoring Once the patient has demonstrated a response to the naloxone, continue to m onitor respiratory rate, depth, oxygen saturation and end-tidal CO2 (if availab le) every 15 minutes x 2, then every 30 minutes x 2, then every 1 hour x 1 after each naloxone dose. Consider transfer to ICU if patient respiratory parameters have not improved after 4 naloxone doses. For ordered IV doses 0.1-2mg give IVP. Give each 0.4mg over 15 seconds in emergency situations. For non -emergent situations further dilute in 9mL of NS to facilitate titration of response. naloxone (NARCAN) injection 0.4 mg 0.4 mg, Intravenous, EVERY 2 MIN PRN, op ioid reversal, Starting on Thu04/22/21 at 2046, Administer intravenous route when available and notify provider when administered. For unintended sedation or respiratory depression if all of the below criteria are met: ~ respiratory rate LES S than or EQUAL to 8. ~ SaO2 less than 92% and or/end-tidal CO2 is greater than 50. ~ the patient is receiving an opioid, has unintended sedation assessed as RASS (-4 ) or (-5) and patient is currently not on mechanical ventilation. RASS scale (-4) is deep sedation with no response to voice but movement or eye opening to physical stimulation. R ASS scale (-5) is unarousable. Patient Monitoring Once the patient has demonstrated a response to the naloxone, continue to monitor respiratory rate, depth, oxygen saturation and end-tidal CO2 (if available) every 15 mi nutes x 2, then every 30 minutes x 2, then every 1 hour x 1 after each naloxone dose. Consider tr ansfer to ICU if patient respiratory parameters have not improved after 4 nalox one doses. For ordered IV doses 0.1-2mg give IVP. Give each 0.4mg over 15 seconds in emergency situations. For non-emergent situations further dilu te in 9mL of NS to facilitate titration of response. naloxone (NARCAN) injection 0.4 mg 0.4 mg, Intramuscular, EVERY 2 MIN PRN, opioid reversal, Starting on Thu04/22/21 at 2046, Administer intramuscular if an int ravenous route is not available and notify provider when administered. For unintend ed sedation or respiratory depression if all of the below criteria are met: ~ res piratory rate LESS than or EQUAL to 8. ~ SaO2 less than 92% and or/end-tidal CO2 is greater hue n 50. ~ the patient is receiving an opioid, has unintended sedation assessed as RASS (-4) or (-5) and patient is currently not on mechanical ventilation. RA SS scale (-4) is deep sedation with no response to voice but movement or eye opening to physical stimulation. RASS scale (-5) is unarousa ble. Patient Monitoring Once the patient has demonstrated a response to the nalox one, continue to monitor respiratory rate, depth, oxygen saturation and end-tidal CO2 (if availab le) every 15 minutes x 2, then every 30 minutes x 2, then every 1 hour x 1 after each naloxone dose. Consider transfer to ICU if patient respiratory parameters have not improved after 4 naloxone doses. For ordered IV doses 0.1-2mg give IVP. Give each 0.4mg over 15 seconds in emergency situations. For non -emergent situations further dilute in 9mL of NS to facilitate titration of response. oxytocin (PITOCIN) 30 Rate/Dose Change 04/22/2021 11:58 3 radha-uni ts/min 3 mL/hr units in 500 mL 0.9% AM CDT NaCl infusion 1-24 radha-units/min (1-24 mL/hr), Intravenous, CONTINUOUS, Starting on Thu04/22/21 at 0430, Start infusion at 2 radha-units/min. Increase by 1-2 radha-units/min every 30 minutes as clinically indicated until contractions are 2-3 minutes apart, lasting 45 to 60 seconds in duration to achieve labor progress. Max rate is 24 milliunits/min. Do NOT go higher without a provider order. If oxytocin (PITOCIN) infusion is discontinued and off for less than 30 minutes, restart infusion at half of previous oxytocin (PITOCIN) rate. If oxytocin (PITOCIN) infusion has been discontinued equal to or greater than 30 minutes, begin at initial dose. IF another cervical ripening medication is ordered wait 60 minutes after oxytocin (PITOCIN) infusion is stopped before administering cervical ripening medication. Rate/Dose Change 04/22/2021 11:00 AM CDT 5 radha-units/min 5 mL/hr Rate/Dose Change 04/22/2021 9:59 AM CDT 3 radha-units/min 3 mL/hr oxytocin (PITOCIN) 30 units Shift Total 04/23/2021 12:42 AM CDT 10 0 mL/hr 100 mL/hr in 500 mL 0.9% NaCl infusion 100 mL/hr, Intravenous, CONTINUOUS, Starting on Thu04/22/21 at 1730, Anesthesia Provider to administer at 340 mL/hr for 30 minutes (or longer per provider discretion) then decrease to 100 mL/hr. Continue until a total of 2 bags administered (1st bag initiated by Anesthesia Provider.) Discontinue IV or saline lock IV per nurse discretion. Rate/Dose Verify 04/22/2021 11:20 PM CDT 100 mL/hr 100 mL/hr New Bag 04/22/2021 7:11 PM CDT 100 mL/hr 100 mL/hr senna-docusate (SENOKOT-S/PERICOLACE) Given 04/24/2021 8:02 AM C DT 1 tablet 8.6-50 MG per tablet 1 tablet 1 tablet, Oral, 2 TIMES DAILY, First dose on Thu04/22/21 at 2000, If no bowel movement in 24 hours, increase to 2 tablets PO. Hold for loose stools. Preferred agent for constipation related to opioids. Hold for loose stools. Given 04/23/2021 8:19 PM CDT 1 tablet Given 04/23/2021 7:20 AM CDT 1 tablet senna-docusate (SENOKOT-S/PERICOLACE) Given 04/25/2021 8:10 AM C DT 2 tablets 8.6-50 MG per tablet 2 tablet 2 tablet, Oral, 2 TIMES DAILY, First dose on Thu04/22/21 at 2000, Hold for loose stools. Preferred agent for constipation related to opioids. Hold for loose stools. Given 04/24/2021 9:15 PM CDT 2 tablets sodium chloride (PF) 0.9% PF flush 3 mL Given 04/23/2021 12:17 PM CDT 3 mLs 3 mL, Intracatheter, EVERY 8 HOURS, First dose on Thu04/22/21 at 1730, to lock peripheral IV dormant line sodium chloride 0.9% (bottle) irrigation Given 04/22/2021 4:36 PM CDT 650 mLs PRN, Starting on Thu04/22/21 at 1636, Anesthesia Intra-op sodium citrate-citric acid (BICITRA) solution Given 3:32 PM CDT 30 mLs 30 mL 30 mL, Oral, PRE-OP/PRE-PROCEDURE, Starting on Thu04/22/21 at 1517, For 1 dose, For gastric pH neutralization. GIVE WITHIN 45 minutes PRIOR TO SURGICAL PROCEDURE., Pre-procedure documented in this encounter Active and Recently Administered Medications Times are shown in CDT. Scheduled Medication Order 04/23/2021 04/24/2021 04/25/2021 acetaminophen (TYLENOL) tablet 975 mg 0039 (Given - Pr ovider: Dayana Kohler RN)0720 (Given - Provider: Ashlee Lei RN)1455 (Given - Provider: Ashlee Lei RN)2228 (Not Given - Provider: Savannah Guzman RN - Reason: Patient sleeping) 0129 (Given - Provider: Savannah Guzman RN)0801 (Given - Provider: Prema Montes De Oca RN)1525 (Given - Provider: Sanaz Connolly RN)2115 (Given - Provider: Sanaz Connolly RN) 0300 (Given - Provider: Dayana Kohler RN )0914 (Given - Provider: Sanaz Connolly RN) 975 mg, Oral, EVERY 6 HOURS, First dose on Thu04/22/21 at 1900, For 3 days, Do not use if patient has an active opioid/acetaminophen combined analgesic product ordered for pain. Maximum acetaminophen do se from all sources = 75 mg/kg/day not to exceed 4 grams/day. cetirizine (zyrTEC) tablet 10 mg 0720 (Given - Provider: Ryan Lei RN) 0804 (Not Given - Provider: Prema Montes De Oca RN - Reason: Patient/family refused) 0810 (Given - Provider: Sanaz Connolly RN) 10 mg, Oral, DAILY, First dose on Thu04/22/21 at 1730 ferrous sulfate (FEROSUL) tablet 325 mg 0830 (Given - Provider: Ashlee Lei RN) 0802 (Given - Provider: Prema Montes De Oca RN) 0810 (Give n - Provider: Sanaz Connolly RN) 325 mg, Oral, DAILY, First dose on Thu at 0900, Absorbed best on an empty stomach. If stomach upset occurs, can take with meals. ketorolac (TORADOL) injection 15 mg () 0514 (Gi maycol - Provider: Dayana Kohler, RN)1217 (Given - Provider: Kristina Godoy RN) 15 mg, Intravenous, EVERY 6 HOURS, First dose on Thu04/22/21 at 1730, For 24 hours, Give first dose in PACU (alright to give with narcotic analgesic if ordered) X 24 hours Can cause pain on injection. I f ordered intravenously (IV) : administe r through a running maintenance fluid over 1 minute followed by a flush. If patient complains of pain on injection, may dilute 15-30 mg in 5 mL and push over 1 to 2 minutes. senna-docusate (SENOKOT-S/PERICOLACE) 8. 6-50 MG per tablet 1 tablet(Linked Group 1) 0720 (Given - Provider: Ashlee Lei RN)2018 (Given - Provider: Savannah Guzman, DIANA) 08 (Given - Provider: Prema Montes De Oca, DIANA)2114 (See Alternative - Provider: Sanaz Connolly RN) 0810 (See Alternative - Provider: Sanaz roblero RN) 1 tablet, Oral, 2 TIMES DAILY, First dos e on Thu04/22/21 at 2000, If no bowel movement in 24 hours, increase to 2 tablets PO. Hold for loose stools. Preferred agent for constipation related to opioids. Hold for loose stools. senna-docusate (SENOKOT-S/PERICOLACE) 8. 6-50 MG per tablet 2 tablet(Linked Group 1) 0720 (See Alternative - Provider: Luz Maria Lei RN)2018 (See Alternative - Provider: Savannah Guzman RN) 08 (See Alternative - Provider: Prema Montes De Oca, DIANA)2114 (Given - Provider: Sanaz Connolly RN) 0810 (Given - Provider: Sanaz Connolly RN) 2 tablet, Oral, 2 TIMES DAILY, First dos e on Thu04/22/21 at 2000, Hold for loose stools. Preferred agent for constipation related to opioids. Hold for loose stools. sodium chloride (PF) 0.9% PF flush 3 mL (CANCELED) 011 5 (Not Given - Provider: Dayana Kohler RN - Reason: IV Infusing)1217 (Given - Provider: Kristina Burgos RN)2019 (Canceled Entry - Provider: Savannah Guzman, DIANA) 034 (Canceled Entry - Provider: Savannah Guzman, DIANA)0930 (Canceled Entry - Provider: Prema Montes De Oca, DIANA - Comment: Automatically canceled at discontinue of medication order) 3 mL, Intracatheter, EVERY 8 HOURS, Firs t dose on Thu04/22/21 at 1730, to lock peripheral IV dormant line Continuous Medication Order 04/23/2021 04/24/2021 04/25/2021 dextrose 5% in lactated ringers infusion 40 (New Bag - Provider: Dayana Kohler, DIANA) at 125 mL/hr, Intravenous, CONTINUOUS, S ubsequent IV at nurse's discretion. DC IV when tolerating fluids or at nurse's discretion & saline lock., Starting 04/22/21 at 1730, Until Radha 04/25/21 at 1317 oxytocin (PITOCIN) 30 units in 500 mL 0.9% NaCl infusi on 41 (Shift Total - Provider: Dayana Kohler, DIANA - Comment: 493) 100 mL/hr, at 100 mL/hr, Intravenous, CO NTINUOUS, Starting 04/22/21 at 1730, Anesthesia Provider to administer at 340 mL/hr for 30 minutes (or longer per provider discretion) then decrease to 100 mL/ hr. Continue until a total of 2 bags adm inistered (1st bag initiated by Anesthesia Provider.) Discontinue IV or saline lock IV per nurse discretion. PRN Medication Order 04/23/2021 04/24/2021 04/25/2021 acetaminophen (TYLENOL) tablet 650 mg 650 mg, Oral, EVERY 4 HOURS PRN, other, multimodal surgical pain management along with NSAIDS and opioid medication as indicated based on pain control and physical function, Starting Radha 04/25/21 at 0000, May give first dose 4 hours after last scheduled dose of acetaminophen. Maximum acetaminophen dose from all sources = 75 mg/kg/day not to exceed 4 grams/day. bisacodyl (DULCOLAX) Suppository 10 mg 10 mg, Rectal, DAILY PRN, constipation, Starting Thu04/24/21 at 0000, Start POD 2 Hold for loose stools. carboprost (HEMABATE) injection 250 mcg 250 mcg, Intramuscular, ONCE PRN, postpa rtum hemorrhage (PPH), Starting 04/22/21 at 1713, For 1 dose, Notify provider IF uterine atony and clarify with provider medication preference. hydrocortisone 2.5 % cream Rectal, 3 TIMES DAILY PRN, hemorrhoids, Starting 04/22/21 at 1713, Apply to hemorrhoids. Send only if nurse requests. ibuprofen (ADVIL/MOTRIN) tablet 800 mg 2018 (Given - P rovider: Savannah Guzman RN) 08 (Given - Provider: Prema Montes De Oca RN)1525 (Given - Provider: Sanaz Connolly, DIANA)2338 (Given - Provider: Dayana Kohler, DIANA) 0612 (Given - Provider: Dayana Kohler RN) 800 mg, Oral, EVERY 6 HOURS PRN, other, cramping, Starting 04/23/21 at 1645, Start 6 hours after ketorolac is completed (if ordered). Max dose: 3200 mg/day Give with food. lactated ringers BOLUS 1,000 mL Intravenous, 1,000 mL, ONCE PRN, post pa rtum hemorrhage (PPH), Starting 04/22/21 at 1713, For 1 dose, Rate: 500-1000 mL/hr. Start IF HEMORRHAGE lanolin cream Topical, EVERY 1 HOUR PRN, dry skin, sor eness, Starting 04/22/21 at 1713, Apply to sore nipples after feedings lidocaine (LMX4) cream Topical, EVERY 1 HOUR PRN, pain, with VA D insertion, Starting 04/22/21 at 1713, Apply at least 30 minutes prior to VAD insertion in divided doses as needed for size of site for insertion. MAX Dose: 2 .5 g (?? of 5 g tube) Do NOT give if pat ient has a history of allergy to any local anesthetic or any baljit product. Do NOT use both lidocaine intradermal/subcutaneous injection and the lidocaine cream on the same site. lidocaine 1 % 0.1-1 mL 0.1-1 mL, Other, EVERY 1 HOUR PRN, mild pain with VAD insertion, Starting 04/22/21 at 1713, MAX dose 1 mL subcutaneous OR intradermal along the side of the vein in divided doses as needed for VAD ins ertion. Do NOT give if patient has a his tory of allergy to any local anesthetic or any baljit product. Do NOT use both lidocaine intradermal/subcutaneous injection and the lidocaine cream on the same site. methylergonovine (METHERGINE) injection 200 mcg 200 mcg, Intramuscular, ONCE PRN, postpa rtum hemorrhage (PPH), Starting Thu04/22/21 at 1713, For 1 dose, Notify provider IF uterine atony and clarify with provider medication preference.CONTRAINDICATED if Blood Pressure greater than 140/80 and/or history of hyperten andres. misoprostol (CYTOTEC) tablet 400 mcg 400 mcg, Sublingual, ONCE PRN, postpartu m hemorrhage (PPH), Starting Thu04/22/21 at 1713, For 1 dose, Notify provider IF uterine atony and clarify with provider medication preference. naloxone (NARCAN) injection 0.2 mg(Linked Group 2) 0.2 mg, Intravenous, EVERY 2 MIN PRN, op ioid reversal, Starting Thu04/22/21 at 2046, Administer intravenous route when available and notify provider when administered. For unintended sedation or respira tory depression if all of the below crit eria are met: ~ respiratory rate LESS than or EQUAL to 8. ~SaO2 less than 92% and or/end-tidal CO2 is greater than 50. ~ the patient is receiving an opioid, has u nintended sedations assessed as RASS (-3 ), and is currently not on mechanical ventilation. RASS scale moderate (-3) is movement or eye opening to voice but no eye contact. Patient Monitoring Once the pa tient has demonstrated a response to the naloxone, continue to monitor respiratory rate, depth, oxygen saturation and end-tidal CO2 (if available) every 15 minutes x 2, then every 30 minutes x 2, then e very 1 hour x 1 after each naloxone dose . Consider transfer to ICU if patient respiratory parameters have not improved after 4 naloxone doses. For ordered IV doses 0.1-2mg give IVP. Give each 0.4mg over 15 seconds in emergency situations. For non-emergent situations further dilute in 9mL of NS to facilitate titration of response. naloxone (NARCAN) injection 0.2 mg(Linked Group 2) 0.2 mg, Intramuscular, EVERY 2 MIN PRN, opioid reversal, Starting Thu04/22/21 at 2046, Administer intramuscular if an intravenous route is not available and notify provider when administered. For uninte nded sedation or respiratory depression if all of the below criteria are met: ~ respiratory rate LESS than or EQUAL to 8. ~SaO2 less than 92% and or/end-tidal CO2 is greater than 50. ~ the patient is re ceiving an opioid, has unintended sedati ons assessed as RASS (-3), and is currently not on mechanical ventilation. RASS scale moderate (-3) is movement or eye opening to voice but no eye contact. Patien t Monitoring Once the patient has demons trated a response to the naloxone, continue to monitor respiratory rate, depth, oxygen saturation and end-tidal CO2 (if available) every 15 minutes x 2, then ever y 30 minutes x 2, then every 1 hour x 1 after each naloxone dose. Consider transfer to ICU if patient respiratory parameters have not improved after 4 naloxone doses. For ordered IV doses 0.1-2mg give I PROCUREMENT INTERN. Give each 0.4mg over 15 seconds in e mergency situations. For non-emergent situations further dilute in 9mL of NS to facilitate titration of response. naloxone (NARCAN) injection 0.4 mg(Linked Group 2) 0.4 mg, Intravenous, EVERY 2 MIN PRN, op ioid reversal, Starting Thu04/22/21 at 2046, Administer intravenous route when available and notify provider when administered. For unintended sedation or respira tory depression if all of the below crit eria are met: ~ respiratory rate LESS than or EQUAL to 8. ~ SaO2 less than 92% and or/end-tidal CO2 is greater than 50. ~ the patient is receiving an opioid, has unintended sedation assessed as RASS (-4 ) or (-5) and patient is currently not on mechanical ventilation. RASS scale (-4) is deep sedation with no response to voice but movement or eye opening to physic al stimulation. RASS scale (-5) is unaro usable. Patient Monitoring Once the patient has demonstrated a response to the naloxone, continue to monitor respiratory rate, depth, oxygen saturation and end-ti sis CO2 (if available) every 15 minutes x 2, then every 30 minutes x 2, then every 1 hour x 1 after each naloxone dose. Consider transfer to ICU if patient respiratory parameters have not improved after 4 naloxone doses. For ordered IV doses 0.1-2mg give IVP. Give each 0.4mg over 15 seconds in emergency situations. For non-emergent situations further dilute in 9mL of NS to facilitate titration of response. naloxone (NARCAN) injection 0.4 mg(Linked Group 2) 0.4 mg, Intramuscular, EVERY 2 MIN PRN, opioid reversal, Starting 04/22/21 at 2047, Administer intramuscular if an intravenous route is not available and notify provider when administered. For uninte nded sedation or respiratory depression if all of the below criteria are met: ~ respiratory rate LESS than or EQUAL to 8. ~ SaO2 less than 92% and or/end-tidal CO2 is greater than 50. ~ the patient is r eceiving an opioid, has unintended sedat ion assessed as RASS (-4) or (-5) and patient is currently not on mechanical ventilation. RASS scale (-4) is deep sedation with no response to voice but movement or eye opening to physical stimulation. RASS scale (-5) is unarousable. Patient Monitoring Once the patient has demonstrated a response to the naloxone, continue to monitor respiratory rate, depth, oxyg en saturation and end-tidal CO2 (if avai lable) every 15 minutes x 2, then every 30 minutes x 2, then every 1 hour x 1 after each naloxone dose. Consider transfer to ICU if patient respiratory parameters have not improved after 4 naloxone dose s. For ordered IV doses 0.1-2mg give IVP. Give each 0.4mg over 15 seconds in emergency situations. For non-emergent situations further dilute in 9mL of NS to facilitate titration of response. No MMR Needed - Assessment: Patient does not need MMR vaccine CONTINUOUS PRN, Starting 04/22/21 at 1713, Until Radha 04/25/21 a t 1317 NO Rho (D) immune globulin (RhoGam) needed - mother Rh POSITIVE CONTINUOUS PRN, Starting 04/22/21 at 1713, Until Radha 04/25/21 a t 1317 No Tdap Needed - Assessment: Patient does not need Tdap vaccine CONTINUOUS PRN, Starting 04/22/21 at 1713, Until Radha 04/25/21 a t 1317 ondansetron (ZOFRAN) injection 4 mg 4 mg, Intravenous, EVERY 6 HOURS PRN, na usea, vomiting, Administer over 2-5 Minutes, Starting 04/22/21 at 1713, If nausea not resolved in 15 minutes, notify provider before proceeding to prochlorpera zine (COMPAZINE) [if ordered]. Irritant. For ordered IV doses 0.1-4 mg, give IV Push undiluted over 2-5 minutes. oxyCODONE (ROXICODONE) tablet 5 mg 5 mg, Oral, EVERY 4 HOURS PRN, other, pa in control or improvement in physical function. Hold dose for analgesic side effects., Starting 04/22/21 at 1713, Notify provider to assess for uncontrolled pa in or analgesic side effects. Hold while on PALLETIZ[employer] OPERATOR or with regular IV opioid dosing. Maximum total is 60 mg in 24 hours. oxytocin (PITOCIN) 30 units in 500 mL 0.9% NaCl infusion 340 mL/hr, at 340 mL/hr, Intravenous, CO NTINUOUS PRN, for hemorrhage (PPH) UNTIL bleeding subsided, Starting 04/22/21 at 1713, When bleeding subsides decrease rate to 100 mL/hr. Notify pro vider immediately when infusion begun. O xytocin is first line medication for PPH. oxytocin (PITOCIN) injection 10 Units 10 Units, Intramuscular, ONCE PRN, postp artum hemorrhage (PPH). IF no IV access is available., Starting 04/22/21 at 1713, For 1 dose, Oxytocin is first line medication for PPH. simethicone (MYLICON) chewable tablet 80 mg 80 mg, Oral, 4 TIMES DAILY PRN, other, gas, Starting M on 04/22/21 at 1713, Chew. sodium chloride 0.9% (bottle) irrigation PRN, Starting 04/22/21 at 1636, Anesthesia Intra-op sodium phosphate (FLEET ENEMA) 1 enema 1 enema, Rectal, DAILY PRN, constipation , , Starting Thu04/24/21 at 0000, Use if bisacodyl not effective. Start POD 2. Hold for loose stools unless being administered as part of a bowel prep regimen prior to a procedure. tranexamic acid 1 g in 100 mL 0.7% NaCl IV bag (premix) 1 g, Intravenous, Administer over 10 Min utes, EVERY 30 MIN PRN, Post- hemorrhage (PPH), Starting 04/22/21 at 1713, For 2 doses, Provider consultation REQUIRED and MUST be administered as soon a s the ONSET of bleeding AND within 3 jennifer rs of regardless of cause of the PPH (atony OR laceration). IF bleeding continues, a 2nd dose may be administered after 30 minutes. IF concern for DIC (Diss eminated Intravascular Coagulation), obt ain coagulation studies PRIOR to administration. Mix in 50 mL or 100 mL normal saline and infuse. Contraindications include: history of PE (Pulmonary Emboli), DVT (Deep Vein Thrombosis) and current Subarachnoid hemorrhage and active DIC. Linked Groups Order Group 1: senna-docusate (SENOKOT-S/PERICOLACE) 8.6-50 MG per tablet 1 tabletJump to med 1 tablet, Oral, 2 TIMES DAILY, First dos e on Thu04/22/21 at 1999
If no bowel movement in 24 hours, increase to 2 tablets PO. Hold for loose stools. Preferred agent f or constipation related to opioids.&nbsp ;Hold for loose stools.
Or senna-docusate (SENOKOT-S/PERICOLACE) 8.6-50 MG per tablet 2 tabletJump to med 2 tablet, Oral, 2 TIMES DAILY, First dos e on Thu04/22/21 at 1999
Hold for loose stools. Preferred agent for constipation related to opioids. Hold for loose stools.
Group 2: naloxone (NARCAN) injection 0.2 mgJump to med 0.2 mg, Intravenous, EVERY 2 MIN PRN, op ioid reversal, Starting Thu04/22/21 at 2046
Administer intravenous route when available and notify provider when administered. For unintended se dation or respiratory depression if all of the below criteria are met: ~ respiratory rate LESS than or EQUAL to 8. ~SaO2 less than 92% and or/end- tidal CO2 is greater than 50.&nbs p;~ the patient is receiving an opioid, has unintended sedations assessed as RASS (-3), and is currently not on mechanical ventilation. RASS scale moderate (-3) is movement or eye ope silvina to voice but no eye contact. & nbsp;Patient Monitoring Once the patient has demonstrated a response to the naloxone, continue to monitor respiratory rate, depth, oxygen saturat ion and end-tidal CO2 (if available) adrian ry 15 minutes x 2, then every 30 minutes x 2, then every 1 hour x 1 after each naloxone dose. Consider transfer to ICU if patient respiratory p arameters have not improved after 4 nalo xone doses. For ordered IV doses 0.1-2mg give IVP. Give each 0.4mg over 15 seconds in emergency situations. For non-emergent situations further dilute in 9mL of NS to facilitate titration of response.
Or naloxone (NARCAN) injection 0.4 mgJump to med 0.4 mg, Intravenous, EVERY 2 MIN PRN, op ioid reversal, Starting Thu04/22/21 at 2046
Administer intravenous route when available and notify provider when administered. For unintended se dation or respiratory depression if all of the below criteria are met: ~ respiratory rate LESS than or EQUAL to 8. ~ SaO2 less than 92% and or/end- tidal CO2 is greater than 50.&nbs p;~ the patient is receiving an opioid, has unintended sedation assessed as RASS (-4) or (-5) and patient is currently not on mechanical ventilation. RASS scale (-4) is deep sedation with no response to voice but movement o r eye opening to physical stimulation. RASS scale (-5) is unarousable. Patient Monitoring Once the patient has demonstrated a response to the naloxone, continue to monitor respiratory rate, depth, oxygen saturation and end-tidal CO2 (if available) every 15 minutes x 2, then every 30 minutes x 2, then every 1 hour x 1 after each naloxon e dose. Consider transfer to ICU if patient respiratory parameters have not improved after 4 naloxone doses. For ordered IV doses 0.1- 2mg give IVP. Give each 0.4mg over 15 se conds in emergency situations. For non- emergent situations further dilute in 9mL of NS to facilitate titration of response.
Or naloxone (NARCAN) injection 0.2 mgJump to med 0.2 mg, Intramuscular, EVERY 2 MIN PRN, opioid reversal, Starting Thu04/22/21 at 2046
Administer intramuscular if an intravenous route is not available and notify provider when administered.&am p;nbsp;For unintended sedation or respir atory depression if all of the below criteria are met: ~ respiratory rate LESS than or EQUAL to 8. ~SaO2 less than 92% and or/end-tidal CO2 is greater than 50. ~ the patient is r eceiving an opioid, has unintended sedations assessed as RASS (-3), and is currently not on mechanical ventilation. RASS scale moderate (-3 ) is movement or eye opening to voice bu t no eye contact. Patient Monitoring Once the patient has demonstrated a response to the naloxone, continue to monitor respiratory rat e, depth, oxygen saturation and end-tida l CO2 (if available) every 15 minutes x 2, then every 30 minutes x 2, then every 1 hour x 1 after each naloxone dose. Consider transfer to ICU if patient respiratory parameters have n ot improved after 4 naloxone doses. For ordered IV doses 0.1-2mg give IVP. Give each 0.4mg over 15 seconds in emergency situations. For non-emergent situ ations further dilute in 9mL of NS to fa cilitate titration of response.
Or naloxone (NARCAN) injection 0.4 mgJump to med 0.4 mg, Intramuscular, EVERY 2 MIN PRN, opioid reversal, Starting Thu04/22/21 at 2046
Administer intramuscular if an intravenous route is not available and notify provider when administered.&am p;nbsp;For unintended sedation or respir atory depression if all of the below criteria are met: ~ respiratory rate LESS than or EQUAL to 8. ~ SaO2 less than 92% and or/end-tidal CO2 is greater than 50. ~ the patient is r eceiving an opioid, has unintended sedation assessed as RASS (-4) or (-5) and patient is currently not on mechanical ventilation. RASS scal e (-4) is deep sedation with no response to voice but movement or eye opening to physical stimulation. RASS scale (-5) is unarousable. Patient M onitoring Once the patient has demo nstrated a response to the naloxone, continue to monitor respiratory rate, depth, oxygen saturation and end-tidal CO2 (if available) every 15 minutes x 2, the n every 30 minutes x 2, then every 1 jennifer r x 1 after each naloxone dose. Consider transfer to ICU if patient respiratory parameters have not improved after 4 naloxone doses. F or ordered IV doses 0.1-2mg give IVP. Gi ve each 0.4mg over 15 seconds in emergency situations. For non-emergent situations further dilute in 9mL of NS to facilitate titration of response.
documented in this encounter Care Teams Sex Offender Treatment Professional Relationship Specialty Start Date End Date Karen Garza, PCP - General Family Medicine 02/28/21 [facility] [address] [address] Karen Garza, Assigned PCP 05/20/2005/24 PA-C [address], [address] [address] Gretta Fishman CNM Assigned OBGYN Provider 10/28/20 08/17/21 [address] [place] [address] documented as of this encounter
--- OUTSIDE RECORDS SUMMARY | 2022-10-10 23:51 | XMS_ITS | Encounter Summary ---
:1995 Author Organization [place] Address [address] [facility] [place] [address] Care Team Providers Name Role Phone Karen Garza PA-C Unavailable [phone] Gretta Fishman CNM Unavailable Karen Garza PA-C Primary Care Provider [phone] Reason for Visit Reason Comments Induction Of Labor Auth/Cert Specialty Diagnoses / Procedures Referred By Contact Refer red To Contact print project manager Diagnoses Indication for care in labor or delivery Indication for care in labor or delivery Rh Procedures labor and delivery [address], [place] [address] Phone: Fax: Referral ID Status Reason Start Date Expiration Date Visits Requ ested Visits Authorized [id number] 1 1 Encounter Details Date Type Department Care Team Description 04/22/2021 [facility] Per[facility] [address] [place], [place] [phone] [place] [phone] [phone] (Wo rk) Surgery Details Date/Time Status Location OR Service Patient Class Case Case Trauma Class Type Case? 04/22/21 3:45 Posted [facility] OR OR 07 Obstetrics Inpatient PM Panel 1 Procedure LRB Anes Op Region Wound Class Commen ts SECTION N/A Epidural Abdomen II-Clean Contaminat ed Surgeon Surgeon Role Service Panel Morales Sutherland MD Assisting Obstetrics 1 Adriana Bernal MD Primary Obstetrics 1 documented in this encounter Social History Tobacco Use Types Packs/Day Years [...] Sign Reading Time Taken Comments Blood Pressure 96/53 04/22/2021 5:40 PM CDT Pulse - - Temperature 36.6 ??C (97.8 ??F) 04/22/2021 4:53 PM CDT Respiratory Rate 16 04/22/2021 5:00 PM CDT Oxygen Saturation 97% 04/22/2021 5:44 PM CDT Inhaled Oxygen Concentration - - Weight 89.2 kg (196 lb 9.6 oz) 04/21/2021 8:02 PM CDT Height 157.5 cm (5' 2) 04/21/2021 8:02 PM CDT Body Mass Index 35.96 04/21/2021 8:02 PM CDT documented in this encounter Discharge Summaries Shameka Goodman MD - 04/25/2021 8:50 AM CDT [facility] Discharge Summary Obstetrics Date of Admission: 04/21/2021 [...] (L) 11.7 - 15.7 g/dL Final Judith M. Schlies, DO, DO Discharge Disposition Discharged to home [...] documented in this encounter Discharge Instructions Discharge InstructionsSanaz Connolly RN - 04/25/2021 10:18 AM CDT Images from the original note were not included. Home care: Schedule a follow up appointment with print project manager in 6 weeks. Discharge Instructions for Section [...] ?? Feelings of anxiety, panic, and/or depression [employer] last reviewed this educational content on 12/24/2017 ?? 7502-4127 [employer]. All rights reserved. This information is not [...] Dispo: anticipate DC today MD Doris Childress MUSHROOM FARMER April 25, 2021 Judith Chan DO - 04/24/2021 9:13 AM CDT [facility] Obstetrics Post-Op / Progress Note Interval History [...] ??? oxytocin in 0.9% NaCl 100 mL/hr (04/23/2141) ??? oxytocin in 0.9% NaCl ??? acetaminophen [...] Dispo: anticipate DC POD#3 MD Doris Childress MUSHROOM FARMER April 23, 2021 Adriana Bernal MD - 04/22/2021 3:17 PM CDT [facility] Labor Progress Note S: Patient getting more [...] to moderate variability, accelerations absent, Variable decelerations [place]: Contractions every 2-5 minutes A/P: Ms. Yancy [...] - Contraception: Condoms Adriana Neely MD Pager: [phone] April 22, 2021 Adriana Bernal MD - 04/22/2021 9:11 AM CDT [facility] Labor Progress Note S: Patient comfortable with [...] 150, moderate variability, accelerations present, absent decelerations [place]: Contractions every 2-5 minutes A/P: Ms. Yancy [...] - Contraception: Condoms Adriana Neely MD Pager: [phone] April 22, 2021 documented in this encounter H&P Notes Destiny Kate MD - 04/21/2021 7:43 PM CDT April 21, 2021 Yancy Watts [id number] OB Admit History & Physical Ms. Watts [...] History: Procedure Laterality Date ??? DENTAL SURGERY [place] teeth. age 15 No current outpatient medications on file. Allergies: Zithromax [azithromycin] REVIEW OF SYSTEMS: NEUROLOGIC: Negative EYES: Negative ENT: Negative GI: Negative : Negative UPHOLSTERY PARTS SORTER: Negative CV: Negative PULMONARY: Negative MUSCULOSKELETAL: Negative PSYCH: Negative Social History Socioeconomic History ??? Marital status: Spouse name: Humberto ??? Number of children: Not on file ??? Years of education: Not on file ??? Highest education level: Not on file Occupational History Employer: [employer] Comment: [employer] ??? 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 Financial resource strain: [...] file Gets together: Not on file Attends oriental orthodox service: Not on file Active member of [...] of Exam: Vitals: LMP 07/08/2020 (Exact Date) [place]: Occasional rare FHT: 130 bpm, mod, a [...] Cat I Destiny Kate MD Dept of MUSHROOM FARMER April 21, 2021 documented in this encounter [...] cares and is able to care for . Action: Patient medicated during the shift for pain. See MAR. Patient reassessed within 1 hour aftereach medication and pain was improved - patient stated she was comfortable. Response: Positive attachment behaviors observed with . Plan: Anticipate discharge on 04/25/2021. Plan of Care - Prema Montes De Oca RN - 04/24/2021 1:34 PM CDT Stable patient meeting expected goals. Pain being managed with ibuprofen and tylenol. Incision healing well with no drainage, liquid bandage in place. Motherlove and hydrogel pads given for comfort. Independent with self cares. and pumping initiated today. Note - Latanya Martinez RN - 04/24/2021 12:20 PM CDT visit. had been breast feeding on left breast with nipple shield. She self unlatched and appeared content with colostrum in shield. Burped and assisted to latch on right breast with nipple shield. [place] latched on shield with minimal assistance, but sucks were only pacifying. Nipple noted to not be fully inside nipple shield and compressing shield like a pacifier. Assistedwith repositioning shield and re-latching. [place] latched and was only sucking in a [...] change in sucking and much more audible swallows. then fed for 15 minutes actively with [...] on pumping, which has been encouraged by sales recruiter due to 7% weight loss. Encouraged her [...] PO, denies N/V. Voiding. Bonding well with , attentive to cares. Significant other at bedside [...] self cares, is able to care for infant and is breast feeding every 2-3 hours. [...] stable. Ambulating independently to bathroom and performing infant cares. Incision site WNL with liquid bandage, [...] PM CDT Data: Yancy Watts transferred to [facility] via cart at 1940. Baby transferred via [...] Patient: Yancy Watts Surgeon: Dr. Adriana Neely Personnel Specialist: Dr. Morales Sutherland Pre-Op Diagnosis: - at [...] in stable condition. Adriana Neely MD Pager: [phone] April 22, 2021 Plan of Care - [...] Request Evaluate - Remote Notification Reason Status Update;SVE Dr. Kate updated of SVE /-1 with now a Nassar score of 8. [...] Hemoglobin 11.1 (L) 11.7 - 15.7 04/23/2021 [facility] g/dL 7:15 AM T [facility] Specimen Anatomical Collection Method Collection Time Receive d Time (Source) Location / / Volume Laterality Blood 04/23/2021 6:50 AM 6:51 CDT AM CDT Adriana Bernal MD LAB - BLOOD ORDERABLES Performing Organization Address City/[facility]/ZIP Code Phon e Number [facility] [address], [place] [address] [facility] [address], [place] [address], [facility] [phone] ABO/Rh type and screen (04/21/2021 8:40 PM CDT) [facility] Method Time Signature ABO O 04/22/2021 [facility] 4:43 PM T [facility] RH(D) Pos [facility] Antibody Neg 04/22/2021 [facility] Screen 4:43 PM [facility] Test Valid [place] 04/22/2021 [facility] Only At [facility] 4:44 PM T [facility] Specimen 04/24/2021 04/22/2021 [facility] Expires 4:44 PM [facility] Specimen Anatomical Collection Method Collection Time Receive d Time (Source) Location / / Volume Laterality Blood 04/21/2021 8:40 PM 3:41 CDT PM CDT Adriana Bernal MD LAB - BLOOD BANK TEST ORDER Performing Organization Address City/[facility] Phon e Number [facility] [address], [place] [address] [facility] [address], [place] [address], [facility] [phone] ABO and Rh (04/21/2021 8:40 PM CDT) [facility] Method Time Signature ABO O 04/21/2021 [facility] 9:11 PM T [facility] RH(D) Pos [facility] Specimen 04/24/2021 04/21/2021 [facility] Expires 9:06 PM [facility] Blood Bank Duplicate 04/22/2021 [facility] Comment request 4:44 PM CDT [facility] Specimen Anatomical Collection Method Collection Time Receive d Time (Source) Location / / Volume Laterality Blood 04/21/2021 8:40 PM 1 8:51 CDT PM CDT Destiny Kate MD LAB - BLOOD BANK TEST ORDER Performing Organization Address [facility]/ZIP [facility] Phon e Number [facility] [address] [place] [address], [place] [address] [facility] [address], [place] [address] [phone] Treponema Abs w Reflex to RPR and Titer (04/21/2021 8:40 PM CDT) [facility] Method Time Signature Treponema Nonreactive NR^Nonrea 04/23/2021 [facility] ctive 10:27 AM CDT [facility] Comment: Methodology Change: Test performed on DiaSorin Liaison XL by Treponema pallidum Total Antibodies Assay as of . Specimen Anatomical Collection Method Collection Time Receive d Time (Source) Location / / Volume Laterality Blood 04/21/2021 8:40 PM 8:52 CDT PM CDT Destiny Kate MD LAB - BLOOD ORDERABLES Performing Organization Address [facility]/ZIP Code Phon e Number [address] [address] [facility] Group B strep PCR (03/21/2021) athologist Signature Group B Strep negative PCR Patient Reported LAB - MICRO GENERAL ORDERABL ES documented in this encounter Visit Diagnoses Diagnosis S/P section - Primary Other postprocedural status Indication for care in labor or delivery Unspecified indication for care or inter vention related to labor and delivery, unspecified as to episode of care 41 weeks gestation of state, incidental documented in this encounter Admitting Diagnoses Diagnosis [...] at 1730, Until Radha 04/25/21 at 1317 ferrous sulfate (FEROSUL) tablet 325 mg Given [...] Given 04/24/2021 3:25 PM CDT 800 mg naloxone (NARCAN) injection 0.2 mg 0.2 mg, [...] facilitate titration of response. oxytocin (PITOCIN) 30 units Shift Total 04/23/2021 [...] 9:15 PM CDT 2 tablets sodium chloride 0.9% (bottle) irrigation Given 04/22/2021 4:36 PM CDT 650 mLs PRN, Starting on Thu04/22/21 at 1636, Anesthesia Intra-op documented in this encounter Active and Recently Administered Medications Times are shown in CDT. Scheduled Medication Order 04/23/2021 04/24/2021 04/25/2021 acetaminophen (TYLENOL) tablet 975 mg 0039 (Given - Pr ovider: Dayana Kohler RN)0720 (Given - Provider: Ashlee Lei RN)1455 (Given - Provider: Ashlee Lei RN)2228 (Not Given - Provider: Savannah Guzman, DIANA - Reason: Patient sleeping) 0129 (Given - Provider: Savannah Guzman RN)0801 (Given - Provider: Prema Montes De Oca, DIANA)1525 (Given - Provider: Sanaz Connolly, DIANA)2115 (Given - Provider: Sanaz Connolly, DIANA) 0300 (Given - Provider: Dayana Kohler RN [...] Ashlee Lei RN)2018 (Given - Provider: Savannah Guzman RN) 08 (Given - Provider: [...] nurse requests. ibuprofen (ADVIL/MOTRIN) tablet 800 mg 2019 (Given - P rovider: Savannah Guzman RN) 0802 (Given - Provider: Prema Montes De Oca, DIANA)1525 (Given - Provider: Sanaz Connolly, DIANA)2338 (Given - Provider: Dayana Kohler, DIANA) 0612 (Given - Provider: Dayana Kohler RN) 800 mg, Oral, EVERY 6 HOURS PRN, other, cramping, Starting Tu04/23/21 at 1645, Start 6 hours after ketorolac [...] For ordered IV doses 0.1-2mg give I QUENCHING CAR OPERATOR. Give each 0.4mg over 15 seconds in [...] or analgesic side effects. Hold while on COCONUT COOKER or with regular IV opioid dosing. Maximum [...] response.
documented in this encounter Care Teams Linux System Admin Relationship Specialty Start Date End Date Karen Garza, PCP - General Family Medicine 02/28/21 [facility] [address] [address] Karen Garza, Assigned PCP 05/20/2005/24 PA-C [address], [address] [address] Gretta Fishman CNM Assigned OBGYN Provider 10/28/20 08/17/21 [address] [place] [address] documented as of this encounter
--- OUTSIDE RECORDS SUMMARY | 2022-10-10 23:51 | XMS_ITS | Encounter Summary ---
:1995 Author Organization [place] Address [address] [facility] [facility] [place] [address] Care Team Providers Name Role Phone Karen Garza PA-C Unavailable [phone] Gretta Fishman Unavailable Karen Garza PA-C Primary Care Provider [phone] Reason for Visit Auth/Cert Specialty Diagnoses / Procedures Referred By Contact Refer red To Contact domestic violence advocate Diagnoses Indication for care in labor or delivery Indication for care in labor or delivery Rh Procedures labor and delivery [address] [place], [place] [address] Phone: Fax: Referral ID Status Reason Start Date Expiration Date Visits Requ ested Visits Authorized [id number] 1 1 Encounter Details Date Type Department Care Team Description 04/22/2021 Anesthesia Event [facility] Deni Mejia MD [facility] [address] [place] [address] [place], [place] [address] (Wo rk) Anesthesia Record Procedure Summary Procedure Name Responsible Anesthesia Start Anesthesia Stop Time Anesthesiologist Time SECTION Deni Mejia MD 04/22/21 0656 04/22/21 165 9 (Abdomen) Events Date Time Event Comment 04/22/2021 0656 An Start 0656 AN FACE TIME IN 0712 An Facetime Out 1548 Epi to C-S / Surg. Case 1548 An Start Data 1551 MD Present 1559 MD Present 1604 MD Present 1616 Uterine Incision 1616 MD Present 1618 Baby Delivered 1620 Placenta Delivered 1640 MD Present 1648 an stop data 1659 An Stop Electronically s igned by Deni Mejia MD on April 22, 2021 4:59 PM Name Total morphine PF 1mg/mL 3 mg dexamethasone 4mg/mL 4 mg phenylephrine 10mg/mL 300 mcg lidocaine 2% with EPINEPHrine 1:200,000 15 mL oxytocin 30 units in 500 mL 0.9% NaCl infusion 200 mL ondansetron (ZOFRAN) injection 4 mg 4 mg ceFAZolin (ANCEF) intermittent infusion 2 g in 100 mL dextrose PRE-MIX 2 g ketorolac 30 mg/mL 15 mg lactated ringers infusion 1,200 mL Agents Name NO HELIOX O2 N2O Air Exp Sevoflurane Exp Isoflurane Exp Desflurane Exp N2O Ins Sevoflurane Ins Isoflurane Ins Desflurane O2 Auxiliary Blood No blood administrations on file. Lines, Drains, and Airways Type Details Placement Removal Incision/Surgical Site 04/22/21; 1644; 04/22/21 1644 by Bilateral; Abdomen; Sherie Gomes exofin RN Epidural Physician; Epidural; 04/22/21 0744 by 04/22/21 1 647 by ds; Tip intact Live Beck, RAIL TRACTOR OPERATOR CRN A Peripheral IV 04/21/21; 204; 20 G; 04/21/212040 by 04/23/21 0000 by Left, Dorsal; Lower Kerline Spring RN Melnik, Luda, RN forearm; Tolerated well Urethral Catheter 04/22/21; 0806; No; 04/22/21 0806 by 04/22/21 1330 by Epidural/Intrathecal Judith Wren RN Zwieg, Jennifer A, Catheter; 16 fr RN Urethral Catheter 04/22/21; 1525; No; 04/22/21 1525 by 04/22/21 1945 by /GI/BLOCKER HAND Pelvic Judith Wren RN Flowers, Lacey A, RN Procedure; 16 fr documented in this encounter Social History Tobacco [...] / COVID-19? documented as of this encounter OR Notes Anesthesia Postprocedure Evaluation - Deni Mejia MD - 04/22/2021 5:25 PM CDT Patient: Yancy Watts Procedure(s): SECTION Diagnosis:41 weeks gestation of [Z3A.41] Diagnosis Additional Information: No value filed. Anesthesia Type: Epidural Note: Disposition: Inpatient Postop Pain Control: Uneventful Sign Out: Well controlled pain PONV: No Neuro/Psych: Uneventful Sign Out: Acceptable/Baseline neuro status Airway/Respiratory: Uneventful Sign Out: Acceptable/Baseline resp. status CV/Hemodynamics: Uneventful Sign Out: Acceptable CV status; No obvious hypovolemia; No obvious fluid overload Other NRE: NONE DID A NON-ROUTINE EVENT OCCUR? No Last vitals: Vitals: 04/22/21 1419 04/22/21 1448 04/22/21 1653 BP: Resp: Temp: 98.2 ??F (36.8 ??C) 98 ??F (36.7 ??C) 97.8 ??F (36.6 ??C) Last vitals prior to Anesthesia Care Transfer: AMMONIA STILL OPERATOR VITALS 04/22/2021 1618 - 04/22/2021 1718 04/22/2021 Pulse: 57 SpO2: (!) 78 % Electronically Signed By: Deni Mejia MD April 22, 2021 5:25 PM Anesthesia Preprocedure Evaluation - Deni Mejia MD - 04/22/2021 9:21 AM CDT Anesthesia Pre-Procedure Evaluation Patient: Yancy Watts : 1995 Preoperative Diagnosis: * No pre-op diagnosis entered * Procedure : * No procedures listed * History reviewed. No pertinent past medical history. Past Surgical History: Procedure Laterality Date ??? DENTAL SURGERY [place] teeth. age 15 Allergies Allergen Reactions ??? Zithromax [Azithromycin] rash Social History Tobacco Use ??? Smoking status: Never Smoker ??? Smokeless tobacco: Never Used Substance Use Topics ??? Alcohol use: Not Currently Wt Readings from Last 1 Encounters: 04/21/21 89.2 kg (196 lb 9.6 oz) Anesthesia Evaluation ROS/MED HX ENT/Pulmonary: - neg pulmonary ROS Neurologic: Cardiovascular: - neg cardiovascular ROS METS/Exercise Tolerance: Hematologic: Musculoskeletal: GI/Hepatic: Renal/Genitourinary: Endo: Psychiatric/Substance Use: Infectious Disease: Malignancy: Other: Physical Exam Airway Mallampati: III TM distance: > 3 FB Neck ROM: full Respiratory Devices and Support Dental Cardiovascular Rhythm and rate: regular and normal Pulmonary breath sounds clear to auscultation OUTSIDE LABS: CBC: Lab Results Component Value Date WBC 9.9 09/20/2020 WBC 9.1 04/07/2016 HGB 13.5 09/20/2020 HGB 14.5 10/17/2019 HCT 40.1 09/20/2020 HCT 41.0 04/07/2016 PLT 249 09/20/2020 PLT 358 04/07/2016 BMP: No results found for: NA, POTASSIUM, CHLORIDE, CO2, BUN, CR, GLC COAGS: No results found for: PTT, INR, FIBR POC: No results found for: BGM, HCG, HCGS HEPATIC: No results found for: ALBUMIN, PROTTOTAL, ALT, AST, GGT, ALKPHOS, BILITOTAL, BILIDIRECT, MAXIMO OTHER: Lab Results Component Value Date PH 7.0 07/20/2002 Anesthesia Plan ASA Status: 2, emergent Anesthesia Type: Epidural. Consents Anesthesia Plan(s) and associated risks, benefits, and realistic alternatives discussed. Questions answered and patient/outbound telemarketing representative(s) expressed understanding. - Discussed with: Patient Postoperative Care Pain management: IV analgesics, Oral pain medications, Neuraxial analgesia, Multi-modal analgesia. PONV prophylaxis: Ondansetron (or other 5HT-3), Dexamethasone or Solumedrol Comments: neg OB ROS. Deni Mejia MD Anesthesia Procedure Notes - Deni Mejia MD - 04/22/2021 7:43 AM CDT Associated Order(s): Epidural Block Epidural catheter Procedure Note Pre-Procedure Staff - Performed By: Anesthesiologist Procedure DocumentationProcedure: epidural catheter Comments: Pre-Procedure Performed by Deni Mejia MD Location: OB. PreAnesthestic Checklist: patient identified, IV checked, risks and benefits discussed, informed consent obtained, monitors and equipment checked, pre-op evaluation and at physician/surgeon's request. Timeout Correct Patient: Yes Correct Procedure: Epidural catheter placement Correct Site: Yes Correct Position: Yes Procedure Documentation Procedure: Epidural catheter block for Labor Patient currently in labor and she and OBMD request a labor epidural to control her labor pains. Patient was interviewed and examined. Procedure and risks including but not limited to bleeding, infection, nerve injury, paralysis, PDPH, and inadequate block requiring intervention discussed with patient. Questions answered. This epidural is to be placed in anticipation of vaginal delivery. She consentsto the epidural procedure. Time-out was performed. I or my partners remain immediately available formanagement of any issues or complications and will monitor at appropriate intervals. Procedure: Patient sitting. Betadine prep x 3. Sterile drape applied. Mask and gloves used. Lidocaine 1% local infiltration at L 3-4. 17 G. Tuohy needle at L3-4 by loss of resistance into epidural space. No CSF, paresthesia or blood. 1.5 % Lidocaine with 1:200,000 Epinephrine 5cc test dose. Epidural catheter inserted w/o resistance to 5 cm in epidural space. Then 0.125% bupivicaine with fentanyl 2 mcg/ml 12 cc with NS 5 cc. Aspiration negative for blood and CSF. Negative for neuro change, paresthesia or symptoms of intravascular injection or intrathecal injection. Infusion orders written and infusion of 0.125% bupivicaine with fentanyl 2 mcg/ml at 10cc per hour started. Deni Mejia MD documented in this encounter Miscellaneous Notes Anesthesia Care Transfer Note - Live Beck APRN CRNA - 04/22/2021 5:00 PM CDT Patient: Yancy Watts Procedure(s): SECTION Diagnosis: 41 weeks gestation of [Z3A.41] Diagnosis Additional Information: No value filed. Anesthesia Type: No value filed. Note: Oropharynx: oropharynx clear of all foreign objects Level of Consciousness: awake Oxygen Supplementation: room air Independent Airway: airway patency satisfactory and stable Dentition: dentition unchanged Vital Signs Stable: post-procedure vital signs reviewed and stable Report to RN Given: handoff report given Patient transferred to: Labor and Delivery Handoff Report: Identifed the Patient, Identified the Reponsible Provider, Reviewed the pertinent medical history, Discussed the surgical course, Reviewed Intra-OP anesthesia mangement and issues during anesthesia, Set expectations for post-procedure period and Allowed opportunity for questions and acknowledgement of understanding Vitals: (Last set prior to Anesthesia Care Transfer) ARMANDO VITALS 04/22/2021 1618 - 04/22/2021 1700 04/22/2021 Pulse: 57 SpO2: (!) 78 % Electronically Signed By: Live Beck APRN CRNA April 22, 2021 5:00 PM documented in this encounter Plan of Treatment Not on filedocumented as of this encounter Procedures Procedure Name Priority Date/Time Associated Diagnosis Comme nts ANE EPIDURAL BLOCK Routine 04/22/2021 7:43 AM Res ults for this CDT procedure are i n the results section. documented in this encounter Results Epidural Block (04/22/2021 7:43 AM CDT) Narrative Deni Mejia MD - 04/22/2021 7:43 AM CDT Deni Mejia MD ? 04/22/2021 ??7:43 AM Epidural catheter Procedure Note Pre-Procedure Staff - ? Performed By: Anesthesiologist Procedure DocumentationProcedure: epidur al catheter Comments: ??Pre-Procedure Performed by Deni Mejia MD Location: OB. ?? PreAnesthestic Checklist: patient identi fied, IV checked, risks and benefits discussed, informed consent obt ained, monitors and equipment checked, pre-op evaluation and at physic maría elena/surgeon's request. Timeout Correct Patient: Yes Correct Procedure: Epidural catheter antonio cement Correct Site: Yes Correct Position: Yes Procedure Documentation Procedure: ?? Epidural catheter block fo r Labor Patient currently in labor and she and O BMD request a labor epidural to control her labor pains. Patient was int erviewed and examined. Procedure and risks including but not limited to b leeding, infection, nerve injury, paralysis, PDPH, and inadequate block re quiring intervention discussed with patient. Questions answered. This e pidural is to be placed in anticipation of vaginal delivery. ??She consents to the epidural procedure. Time-out was performed. ??I or my partn ers remain immediately available for management of any issues or complica tions and will monitor at appropriate intervals. Procedure: Patient sitting. Betadine pre p x 3. Sterile drape applied. ?? Mask and gloves used. Lidocaine 1% ??local infiltration at L 3 -4. ??17 G. Tuohy needle at L3-4 by loss of resistance into epidural space. ??No CSF, paresthesia or blood. 1.5 % Lidocaine with 1:200,000 Epinephrine 5 cc test dose. Epidural catheter inserted w/o resistance to 5 cm in epidu ral space. Then 0.125% bupivicaine with fentanyl 2 mcg/ml 12 cc with NS 5 c c. ??Aspiration negative for blood and CSF. ?? Negative for neuro change, p aresthesia or symptoms of intravascular injection or intrathecal i njection. Infusion orders written and infusion of 0.125% bupivicaine with fentanyl 2 mcg/ml at 10cc per hour started. Deni Mejia MD Deni Mejia MD [facility] documented in this encounter Visit Diagnoses Not on filedocumented in this encounter Administered Medications Inactive Administered Medications - up to 3 most recent administrations Medication Order MAR Action Action Date Dose Rate Site ceFAZolin (ANCEF) intermittent Given 04/22/2021 3:55 PM CDT 2 g infusion 2 g in 100 mL dextrose PRE-MIX Routine, 2 g, Intravenous, PRE-OP/PRE-PROCEDURE, Starting on 04/22/21 at 1517, For 1 dose, Give no sooner than 30 minutes prior to incision. If patient weight is greater than or equal to 120 kg increase dose to 3 g., Indications: Perioperative Pharmacoprophylaxis, Pre-procedure dexamethasone (DECADRON) injection Given 04/22/2021 3:54 PM CDT 4 mg PRN, Administer over 1 Minutes, Starting on Thu04/22/21 at 1554, Anesthesia Intra-op ketorolac (TORADOL) injection Given 04/22/2021 4:46 PM CDT 15 mg PRN, Administer over 2 Minutes, Starting on Thu04/22/21 at 1646, Anesthesia Intra-op lactated ringers infusion New Bag 04/22/2021 4:38 PM CDT at 200 mL/hr, Intravenous, CONTINUOUS, Up to 500 mL total, Pre-procedure, Starting on Thu04/22/21 at 1530, Until Thu04/22/21 at 1556 New Bag 04/22/2021 3:48 PM CDT lidocaine 2%-EPINEPHrine 1:200,000 injec tion Given 04/22/2021 3:50 PM CDT 5 mLs EPIDURAL, PRN, Starting on Thu04/22/21 at 1550, Anesthesia Intra-op Given 04/22/2021 3:37 PM CDT 10 mLs morphine (PF) (DURAMORPH) injection Given 04/22/2021 4:22 PM CDT 3 mg Intrathecal, PRN, Administer over 4-5 Minutes, Starting on Thu04/22/21 at 1622, Anesthesia Intra-op ondansetron (ZOFRAN) injection 4 mg Given 04/22/2021 3:55 PM CDT 4 mg 4 mg, Intravenous, EVERY 6 HOURS PRN, nausea, vomiting, Administer over 2-5 Minutes, Starting on Thu04/21/21 at 2028, If nausea not resolved in 15 minutes, notify provider before proceeding to prochlorperazine (COMPAZINE) [if ordered]. Irritant. For ordered IV doses 0.1-4 mg, give IV Push undiluted over 2-5 minutes. oxytocin (PITOCIN) 30 units in 500 mL 0.9% Given 04/22/2021 4:39 PM CDT 199 mLs NaCl infusion Intravenous, PRN, Starting on Thu04/22/21 at 1619, Anesthesia Intra-op Given 04/22/2021 4:19 PM CDT 1 mL phenylephrine (RUTH-SYNEPHRINE) injection Given 04/22/2021 4:38 PM CDT 100 mcg PRN, Starting on 04/22/21 at 1638, Anesthesia Intra-op Given 04/22/2021 4:35 PM CDT 100 mcg Given 04/22/2021 4:01 PM CDT 100 mcg documented in this encounter Care Teams Carport Erector Relationship Specialty Start Date End Date Karen Garza, PCP - General Family Medicine 02/28/21 [facility] [address] , [address] [address] Karen Garza, Assigned PCP 05/20/2005/24 [place] [address], [address] [address] Gretta Fishman CNM Assigned OBGYN Provider 10/28/20 08/17/21 [address] [place], [place] [id number] documented as of this encounter
--- OUTSIDE RECORDS SUMMARY | 2022-10-10 23:51 | XMS_ITS | Encounter Summary ---
:1995 Author Organization [place] Address [address] [facility] [place] [address] Care Team Providers Name Role Phone Leda Gandhi Primary Care Provider [phone] Karen Garza PA-C Unavailable [phone] Encounter Details Date Type Department Care Team Description 09/20/2020 Travel Social History Tobacco Use Types Packs/Day Years Used Date Smoking Tobacco: Never Smokeless Tobacco: Never Alcohol Use Standard Drinks/Week Comments Not Currently 0 (1 standard drink = 0.6 oz pure alcoho l) Sex Assigned at Date Recorded Not on file COVID-19 Exposure Response Date Recorded In the last month, have you been in contact with No / Unsure 09/20/2020 2:16 PM CDT someone who was confirmed or suspected to have Coronavirus / COVID-19? documented as of this encounter Plan of Treatment Not on filedocumented as of this encounter Visit Diagnoses Not on filedocumented in this encounter Care Teams Clockmaker Relationship Specialty Start Date End Date Leda Gandhi PA PCP - General Family Practice 05/04/20 02/27/[address], [facility] [address] [place] [address] Karen Garza PA-C Assigned PCP 05/20/20 06/13/[address], [facility] [address] [place] [address] documented as of this encounter
--- OUTSIDE RECORDS SUMMARY | 2022-10-10 23:51 | XMS_ITS | Encounter Summary ---
:1995 Author Organization [place] Address [address] [facility] [address] Care Team Providers Name Role Phone Karen Garza PA-C Primary Care Provider [phone] Karen Garaz PA-C Unavailable Encounter Details Date Type Department Care Team Description 10/03/2022 Anesthesia Event [facility] Kerline Storey MD [facility] [address] [facility] ANESTHESIOLOGY, [place] [address] [facility] [phone] [address] [place], [place] [address] (Wo rk) Anesthesia Record Procedure Summary Procedure Name Responsible Anesthesia Start Time Anesthesia Stop Time Anesthesiologist LABOR ANALGESIA Events No events on file. No medications on file. Agents No agents on file. Blood No blood administrations on file. Lines, Drains, and Airways No LDAs on file. documented in this encounter Social History Tobacco [...] No / Unsu re 10/04/2022 1:20 AM COLLECTION ANALYST someone who was confirmed or suspected to have Coronavirus/COVID-19? documented as of this encounter Plan of Treatment Not on filedocumented as of this encounter Visit Diagnoses Not on filedocumented in this encounter Care Teams Sailmaker Relationship Specialty Start Date End Date Karen Garza PA-C PCP - General Family Medicine 02/28/21 [address] , [address] [address] Karen Garza PA-C Assigned PCP 07/05/[address], [place] [address] [place] [address] documented as of this encounter
--- OUTSIDE RECORDS SUMMARY | 2022-10-10 23:51 | XMS_ITS | Encounter Summary ---
:1995 Author Organization [place] Address [address] [facility] [place] [address] Care Team Providers Name Role Phone Leda Gandhi Primary Care Provider Karen Garza-C Unavailable [phone] Tawnya Maloney CNM Unavailable Reason for Visit Reason Comments Care 15w 4d no concerns Encounter Details Date Type Department Care Team Description 10/25/2020 Virtual Visit [facility] Kye, Encounter for [facility] MATT Glynn supervision of normal [place] [address] [place], [place] [address] [place] [address] (Primary Dx) [address] [place], [place] (Work) [address] [phone] Social History Tobacco Use Types Packs/Day Years Used Date Smoking Tobacco: Never Smokeless Tobacco: Never Alcohol Use Standard Drinks/Week Comments Not Currently 0 (1 standard drink = 0.6 oz pure alcoho l) Sex Assigned at Date Recorded Not on file documented as of this encounter Progress Notes Gretta Fishman CNM - 10/25/2020 3:45 PM CST Yancy Clinton is a 25 year old female who is being evaluated via a billable telephone visit. The patient has been notified of following: This telephone visit will be conducted via a call between you and your physician/provider. We have found that certain health care needs can be provided without the need for a physical exam. This service lets us provide the care you need with a short phone conversation. If a prescription is necessary we can send it directly to your pharmacy. If lab work is needed we can place an order for that and you can then stop by our lab to have the test done at a later time. Telephone visits are billed at different rates depending on your insurance coverage. During this emergency period, for some insurers they may be billed the same as an in-person visit. Please reach out to your insurance provider with any questions. If during the course of the call the physician/provider feels a telephone visit is not appropriate, you will not be charged for this service. Patient has given verbal consent for Telephone visit? Yes What phone number would you like to be contacted at? [phone] How would you like to obtain your AVS? Tes[place] Phone call duration: 10 minutes S:Feels well movement No Denies loss of fluid/vb/contractions/pelvic pain Having some pulling pain on her sides when she coughs, sneezes or moves suddenly, resolves with rest. O: LMP 07/08/2020 (Exact Date) Exam: Constitutional: healthy, alert and sounds to be in no distress Respiratory: non-labored Psychiatric: mentation appears normal and affect normal/bright Remainder of exam deferred as this was a telephone visit A: Diagnosis Comments 1. Encounter for supervision of normal first in second trimester US OB > 14 Weeks P: Reviewed options for NIPT and genetic testing. She is still undecided, she and her partner will consider. Discussed options for quad screen today which she will also consider Anatomy ultrasound next visit between 20-22 weeks Return to clinic 5 weeks H. Sun Fishman CNM 10/25/2020 4:09 PM K LAYING SUPERVISOR documented in this encounter Nursing Amber Landa - 10/25/2020 3:45 PM CST Chief Complaint Patient presents with ??? Care 15w 4d no concerns Initial LMP 07/08/2020 (Exact Date) Estimated body mass index is 27.03 kg/m?? as calculated from thefollowing: Height as of 05/09/20: 1.581 m (5' 2.25). Weight as of 09/20/20: 67.6 kg (149 lb). BP completed using cuff size: NA (Not Taken) Questioned patient about current smoking habits. Pt. has never smoked. The following HM Due: NONE Amber Lou CMA K LAYING SUPERVISOR documented in this encounter Plan of Treatment Not on filedocumented as of this encounter Visit Diagnoses Diagnosis Encounter for supervision of normal firs t in second trimester - Primary Supervision of normal first documented in this encounter Care Teams Metal Machinist Relationship Specialty Start Date End Date Leda Gandhi PCP - General Family Practice 05/04/20 02/27/21 COREY Haines [address] [id number] Karen Garza, Assigned PCP 05/20/2005/24 [facility] [address] [address] Tawnya Maloney CNM Assigned OBGYN Provider 10/07/20 10/27/20 [address] [place], [place] [id number] documented as of this encounter
--- OUTSIDE RECORDS SUMMARY | 2022-10-10 23:51 | XMS_ITS | Encounter Summary ---
:1995 Author Organization [place] Address [address] [facility] [place] [address] Care Team Providers Name Role Phone Karen Garza PA-C Primary Care Provider [phone] Karen Garza PA-C Unavailable [phone] Encounter Details Date Type Department Care Team Description 10/04/2022 Travel Social History Tobacco Use Types Packs/Day [...] No / Unsu re 10/04/2022 1:20 AM BUSINESS CHANGE MANAGER someone who was confirmed or suspected to have Coronavirus/COVID-19? documented as of this encounter Plan of Treatment Not on filedocumented as of this encounter Visit Diagnoses Not on filedocumented in this encounter Care Teams Spout Liner Helper Relationship Specialty Start Date End Date Karen Garza PA-C PCP - General Family Medicine 02/28/21 [address] [address] Karen Garza PA-C Assigned PCP 07/05/22 [address] [place] [address] documented as of this encounter
--- OUTSIDE RECORDS SUMMARY | 2022-10-10 23:51 | XMS_ITS | Encounter Summary ---
:1995 Author Organization [place] Address [address] [facility] [place] [address] Care Team Providers Name Role Phone Karen Garza PA-C Unavailable [phone] Gretta Fishman CNM Unavailable Karen Garza PA-C Primary Care Provider [phone] Encounter Details Date Type Department Care Team Description 04/18/2021 Travel Social History Tobacco Use Types Packs/Day Years Used Date Smoking Tobacco: Never Smokeless Tobacco: Never Alcohol Use Standard Drinks/Week Comments Not Currently 0 (1 standard drink = 0.6 oz pure alcoho l) Sex Assigned at Date Recorded Not on file COVID-19 Exposure Response Date Recorded In the last month, have you been in contact with No / Unsure 04/18/2021 11:24 AM CDT someone who was confirmed or suspected to have Coronavirus / COVID-19? documented as of this encounter Plan of Treatment Not on filedocumented as of this encounter Visit Diagnoses Not on filedocumented in this encounter Care Teams Account Resolution Analyst Relationship Specialty Start Date End Date Karen Garza PCP - General Family Medicine 02/28/21 [place] [address], [place] [address] [place] [address] Karen Garza, Assigned PCP 05/20/20 7/01/14 PA-C [address], [place] [address] [place], [place] [address] Gretta Fishman CNM Assigned OBGYN Provider 10/28/20 08/17/21 [address] [place], [place] [address] documented as of this encounter
--- OUTSIDE RECORDS SUMMARY | 2022-10-10 23:51 | XMS_ITS | Encounter Summary ---
:1995 Author Organization [place] Address [address] [place] [address] Care Team Providers Name Role Phone Karen Garza PA-C Unavailable [phone] Gretta Fishman CNM Unavailable Karen Garza PA-C Primary Care Provider [phone] Encounter Details Date Type Department Care Team Description 04/18/2021 Orders Only [facility] Adriana Bernal Encounter for elective Clinic Sofya Antonio MD induction of labor Laboratory [facility] [address] [address] [place] [address] [place] [address] (Wo rk) Social History Tobacco Use Types Packs/Day Years [...] Name Priority Date/Time Associated Diagnosis Comme nts SARS-COV-2 Routine 04/18/2021 11:25 AM Encounter for Results for this (COVID-19) VIRUS CDT elective induction proce dure are in RT-PCR of labor the results section. COVID-19 VIRUS Routine 04/18/2021 11:25 AM Encounter for Resul ts for this (CORONAVIRUS) BY CDT elective induction proce dure are in PCR of labor the results section. documented in this encounter Results SARS-CoV-2 COVID-19 Virus (Coronavirus) by PCR (04/18/2021 11:25 AM CDT) [facility] Method Time Signature SARS-CoV-2 Nasopharyngeal 04/18/2021 INFECTIOUS Virus 10:32 PM DISEASES Specimen CDT DIAGNOSTIC Source LABORATORY, [facility] SARS-CoV-2 NEGATIVE 04/18/2021 INFECTIOUS PCR Result 10:32 PM DISEASES CDT DIAGNOSTIC LABORATORY, [facility] Comment: SARS-CoV2 (COVID-19) RNA not de tected, presumed negative. SARS-CoV-2 PCR Testing was performed using the Aptima SARS-CoV-2 Assay on the FestEvo Instrument System. 04/18/2021 10:32 PM INFECTI OUS DISEASES Comment Additional information about this Emergency Use Authorization (EUA) assay can be found via CDT DIAGNOSTIC the Lab Guide. LABORATORY, [facility] Comment: This test should be ordered for the dete ction of SARS-CoV-2 in individuals who meet SARS-CoV-2 clinical and/or epidemi ological criteria. Test performance is unknown in asymptomatic patients. This test is for in vitro diagnostic use under the FDA EUA for laboratories certified under CLIA to perform high com plexity testing. This test has not been FDA cleared or approved. A negative result does not rule out the presence of PCR inhibitors in the specimen or target RNA in concentration below the limit of detection for the assay. The possibility of a false negati ve should be considered if the patient's recent exposure or clinical pr esentation suggests COVID-19. This test was validated by the [facility] Infectious Diseases Diagnostic Laboratory. This laboratory i s certified under the Clinical Laboratory Improvement Amendments of 198 8 (CLIA-88) as qualified to perform high complexity laboratory testing. Specimen (Source) Anatomical Collection Method Collection Time Re ceived Time Location / / Volume Laterality Specimen from 04/18/2021 11:25 04/18/2021 nasopharyngeal AM CDT 11:30 AM CDT structure (specimen) Adriana Bernal MD LAB - MICRO GENERAL ORDERABL ES Performing Organization Address City/[facility]/ZIP Code Phon e Number INFECTIOUS DISEASES DIAGNOSTIC [address] [facility], [address] [address] LABORATORY, [facility] Asymptomatic COVID-19 Virus (Coronavirus) by PCR (04/18/2021 11:25 AM CDT) Component Value Ref Test Analysis Performed At [facility] Range Method Time Signature COVID-19 Nasopharyngeal 04/18/2021 GEM Virus PCR to 11:31 AM CLINICS [facility] [place] - CDT [place] Source COVID-19 Test received-See 04/18/2021 INFECTIOUS Virus PCR to reflex to IDDL 5:50 PM CDT DISEASES [facility] [place] - test SARS CoV2 DIAGNOSTIC Result (COVID-19) Virus LABORATORY, RT-PCR [facility] Specimen (Source) Anatomical Collection Method Collection Time Re ceived Time Location / / Volume Laterality Specimen from 04/18/2021 11:25 04/18/2021 nasopharyngeal AM CDT 11:30 AM CDT structure (specimen) Adriana Bernal MD LAB - MICRO GENERAL ORDERABL ES Performing Organization Address City/State/ZIP Code Phon e Number INFECTIOUS DISEASES DIAGNOSTIC [address] [facility], [address] [address] LABORATORY, [facility] [address] [place] [address] documented in this encounter Visit Diagnoses Diagnosis Encounter for elective induction of labo r documented in this encounter Care Teams Probate Paralegal Relationship Specialty Start Date End Date Karen Garza, PCP - General Family Medicine 02/28/21 PA-C [address], [address] [place] [address] Karen Garza, Assigned PCP 05/20/20 701/14 PA-C [address], [address] [place] [address] Deutschman, Gretta, CNM Assigned OBGYN Provider 10/28/20 08/17/21 [address] [place], [place] [id number] documented as of this encounter
--- OUTSIDE RECORDS SUMMARY | 2022-10-10 23:51 | XMS_ITS | Encounter Summary ---
:1995 Author Organization [place] Address [address] [facility] [place] [address] Care Team Providers Name Role Phone Karen Garza PA-C Unavailable [phone] Gretta Fishman Unavailable Karen Garza PA-C Primary Care Provider [phone] Encounter Details Date Type Department Care Team Description 04/18/2021 [facility] Only [facility] Adriana Bernal Encounter for elective [place] [facility] MD Marisela induction of labor [address] [facility] KAREN JHA (Primary Dx) [facility] [id number] [address] [facility] [phone] [address] [place] [address] (Wo rk) Social History Tobacco Use Types Packs/Day Years Used Date Smoking Tobacco: Never Smokeless Tobacco: Never Alcohol Use Standard Drinks/Week Comments Not Currently 0 (1 standard drink = 0.6 oz pure alcoho l) Sex Assigned at Date Recorded Not on file documented as of this encounter Plan of Treatment Not on filedocumented as of this encounter Results Asymptomatic COVID-19 Virus (Coronavirus) by PCR (04/18/2021 11:25 AM CDT) Component Value Ref Test Analysis Performed At [facility] Method Time Signature COVID-19 Nasopharyngeal 04/18/2021 [place] Virus PCR to 11:31 AM CLINICS [facility] [place] [facility] CDT [place] Source COVID-19 Test received-See 04/18/2021 INFECTIOUS Virus PCR to reflex to IDDL 5:50 PM CDT DISEASES [facility] [place] - test SARS CoV2 DIAGNOSTIC Result (COVID-19) Virus LABORATORY, RT-PCR [facility] Specimen (Source) Anatomical Collection Method Collection Time Re ceived Time Location / / Volume Laterality Specimen from 04/18/2021 11:25 04/18/2021 nasopharyngeal AM CDT 11:30 AM CDT structure (specimen) Adriana Bernal MD LAB - MICRO GENERAL ORDERABL ES Performing Organization Address City/State/ZIP Code Phon e Number INFECTIOUS DISEASES DIAGNOSTIC [address] [facility], [address] [address] LABORATORY, [facility] [address] [place] [address] documented in this encounter Visit Diagnoses Diagnosis Encounter for elective induction of labo r - Primary documented in this encounter Care Teams Electromechanical Inspector Relationship Specialty Start Date End Date Karen Garza, PCP - General Family Medicine 02/28/21 PA-C [address] [id number] Karen Garza, Assigned PCP 05/20/20 7/01/14 PA-C [address], [address] [address] [place] [id number] Gretta Fishman CNM Assigned OBGYN Provider 10/28/20 08/17/21 [address] [place], [place] [phone] documented as of this encounter
--- OUTSIDE RECORDS SUMMARY | 2022-10-10 23:52 | XMS_ITS | Encounter Summary ---
:1995 Author Organization [place] Address [address] [facility] [place] [address] Care Team Providers Name Role Phone Marisela Brito MD Primary Care Provider Unavailable Marisela Brito MD Unavailable Unavailable Reason for Visit Reason Comments Medication Refill Encounter Details Date Type Department Care Team Description 08/03/2018 Refill [facility] Marisela Brito MD Medication Refill Physicians [address] [place] [address] [address] [place] [address] Social History Tobacco Use Types Packs/Day Years Used Date Smoking Tobacco: Never Smokeless Tobacco: Never Alcohol Use Standard Drinks/Week Comments No 0 (1 standard drink = 0.6 oz pure alcoho l) Sex Assigned at Date Recorded Not on file documented as of this encounter Miscellaneous Notes Telephone Encounter - Linda Kimble MA - 08/04/2018 7:39 AM CDT Refused Prescriptions: Disp Refills 1.5-30 MG-MCG per tablet [*84 tab* Sig: TAKE 1 TABLET BY MOUTH DAILY Refused By: LINDA KIMBLE I Reason for Refusal: Patient needs appointment Mail Order Pharmacy denied Pt is over due for a PX Last refill and px was 05-04-2017 Sent pt a my chart message [employer] [phone] (home) documented in this encounter Plan of Treatment Not on filedocumented as of this encounter Visit Diagnoses Diagnosis Encounter for surveillance of other cont raceptive documented in this encounter Care Teams Sfdc Technical Architect Relationship Specialty Start Date End Date Marisela Brito MD PCP - General 12/10/9905/03 Marisela Brito MD Assigned PCP 06/10/15 documented as of this encounter
--- OUTSIDE RECORDS SUMMARY | 2022-10-10 23:52 | XMS_ITS | Encounter Summary ---
:1995 Author Organization [place] Address [address] [facility] [place] [address] Care Team Providers Name Role Phone Leda Gandhi Primary Care Provider [phone] Karen Garza-C Unavailable [phone] Reason for Visit Reason Comments Care NPN 10w 4d, no concerns Encounter Details Date Type Department Care Team Description 09/20/2020 Office [facility] Tawnya Maloney Enco unter for [facility] CNM supervision of other [place] [address] normal in [address] [place] [address] first trimester [place], [place] [address] [address] [place], [place] [phone] (Work) [phone] Social History Tobacco Use Types Packs/Day Years [...] Sign Reading Time Taken Comments Blood Pressure 108/72 09/20/2020 2:33 PM CDT Pulse - - Temperature - - Respiratory Rate - - Oxygen Saturation - - Inhaled Oxygen Concentration - - Weight 67.6 kg (149 lb) 09/20/2020 2:33 PM CDT Height - - Body Mass Index 27.03 05/09/2020 1:53 PM CDT documented in this encounter Patient Instructions Patient InstructionsHaiderTawnyaMATT - 09/20/2020 2:45 PM CDT Thank you for coming to see the Midwives at the [facility]! ?? We will notify you about your labs that were drawn today once we get the results back or if you have [facility] they will be posted there as well ?? We will call you personally with results that require further discussion ?? If any referrals were ordered today you should be getting a call in the next week or you may needto call the number listed with your referral to schedule. ?? If you need any refills of medications please call your pharmacy and they will contact us ?? If you have any questions or concerns before your next visit, you can reach the nurse rfid specialist business analysis professional by calling our pager number [phone]. ?? If you wish to schedule another appointment, please call our office at [phone]. You can alsomake appointments through [facility] ?? If you have a medical emergency please call [phone]. Because you are , we have additional resources for you: ?? You may call our consulting RN's during normal business hours for non-urgent questions about yourpregnancy. ?? After hours you may also page the rfid specialist business analysis professional for urgent questions or issues at [phone].There is always a rfid specialist business analysis professional 24 hours a day. Reminders: Before 14 weeks: Dating ultrasound, Genetic testing This ultrasound helps us determine your dates accurately. Verifi can be drawn anytime after 10 weeks of gestation 16 weeks: Optional genetic testing (quad screen) or single AFP This testing helps understand your baby's risk for some genetic abnormalities. 20 weeks: Screening ultrasound ( survey) This testing will look for early growth abnormalities, and may tell the baby's sex if you wish to find out. 28 weeks: One hour sugar test (GCT), hemoglobin and platelets This test helps identify diabetes of or gestational diabetes. We also look at the iron inyour blood and how well your blood clots. 28 - 36 weeks: Tetanus shot (Tdap) This shot helps protect you and your baby from tetanus and whooping cough. 36 weeks and later: Group B Strep test (GBS) This test helps predict if you need antibiotics in labor to prevent infection in your baby. Anytime July to February: Flu shot This shot helps protect you and your family from the flu. This is especially important during Any time during or after your you may experience increased depression and/or mood changes. We are here to support you. Please contact us if you are: ?? Feeling anxious ?? Overwhelmed or sad ?? Trouble sleeping ?? Crying uncontrollably ?? Trouble caring for yourself or baby. The typical schedule after your first visit today you can expect: Visit 2 - 12-16 weeks Visit 3 - 20 weeks Visit 4 - 24 weeks Visit 5 - 28 weeks Visit 6 - 32 weeks Visit 7 - 34 weeks Visit 8 - 36 weeks Weekly after 36 weeks until delivery. If anything comes up between your visits or you have concerns please don't hesitate to contact us. Secure access to your medical record: Use Goalbook (secure email communication and access to your chart) to send your primary care providera message or make an appointment. Ask someone on your Team how to sign up for Goalbook. To log on to FanXT or for more information in Goalbook please visit the website at [email or web address]. Certified Nurse Thermal Intelligence Analyst (CNM) Team [place] APRN, MATT Hernandez APRN, MATT Fishman APRN, MATT Maloney APRN, MATT Again, thank you for choosing the midwives at [facility]. We are excited to be a part of your . Please let us know how we can best partner with you to improve your and your family's health. Genetic Screening in There are several options you have for genetic screening in your . Everyone has their own personal reasons to screen or not to screen. We want you to make the best choice for you and your . Below is a list of options, what they screen for and when the screening is done. Genetic screening is recommended for women who are 35 and older at delivery and for those with a family history ofchromosomal abnormalities. However, screening is offered to all women. Innatal: This is a screening for the more common chromosome abnormalities, including trisomy 21 (Down's syndrome), trisomy 18, trisomy 13 and sex chromosome abnormalities. This is a test that can be done as early as 10 weeks gestation. ?? A maternal blood sample is drawn that sequences cell-free DNA in maternal plasma. This in turn allows for molecular counting of chromosome copy numbers with a >99% detection rate of Down syndrome, a 97% detection rate of Trisomy 18, and a 78% detection rate of Trisomy 13. ?? This test will give information about the gender of the baby. You can choose to not have that disclosed. ?? Results come back within 10-14 days. ?? About 5% of samples will have results that are designated as indeterminate or uninterruptable. With this type of result, genetic counseling and diagnostic testing are recommended. Remember this is a screening test and does not definitively diagnose or exclude the presence of these chromosome con ditions. ?? This screening may or may not be covered by insurance. We recommend you consult your insurance company to discuss. Financial assistance is available at a low cost if not covered by your insurance. Hemoglobin Electrophoresis: Hemoglobin electrophoresis is a non-invasive blood test that looks at abnormal hemoglobin (componentof red blood cells) production. Examples of this include sickle cell anemia (which is a disorder of the red blood cells and their shape) and the thalassemia???s (which is also a form of anemia). High risk groups include: , Southeast Asians, , Mediterranean, Kenyan, South and Central Sudanese and [place] descent. This blood test is usually done with your first OB labs. This is a one-time test. Trio Carrier Screen: 1. Cystic Fibrosis (CF) is the most common life-shortening autosomal recessive disease among populations, with a frequency of 1 in Every 3,500 live births. Although it mainly affects the Population anyone can request screening. If you have a family history of cystic fibrosis you should request this test. This screening is a blood draw 2. Spinal Muscular Atrophy (SMA) is the most common inherited cause of . The most common form of this disorder causes by a age two. One in every 6,000 to 10,000 babies born in the [facility] 3. Fragile X Syndrome (FXS) is the most common inherited cause of intellectual disability. Approximately 1 in every 3,600 boys and 1 in every 6,000 girls is born with FXS If you are a carrier of CF or SMA, your partner will also need to be tested. This partner testing is offered free of charge. This screen can be done prior to or at any time during the . Quad Screen: The quad screen is a quadruple marker screening test done during the second trimester of your . This screening test that measures levels of four substances in a woman's blood; Alpha-fetoprotein (AFP), Human chorionic gonadotropin (HCG), Estriol, and Inhibin A. ?? AFP screens for open neural tube defects like Spina Bifida and Anencephaly. ?? Spina bifida is a serious defect that occurs when a portion of the neural tube fails to develop or close properly, causing defects in the spinal cord and in the bones of the spine. ?? Anencephaly is a serious defect in the closure of the neural tube, resulting in an underdeveloped brain and an incomplete skull. ?? Human chorionic gonadotropin (HCG), Estriol, and Inhibin screen for Down syndrome (trisomy 21) and Trisomy 18. ?? Down syndrome is a chromosomal disorder that causes lifelong intellectual disability and developmental delays and, in some people, health problems ?? Trisomy 18 is a chromosomal disorder that causes severe developmental delays and anatomic abnormalities. It is often fatal by age 1. The screening is ideally done between 15 and 18 weeks of but can be done up to week 20. Even if you have done the Verifi testing you can still get a single AFP drawn to check for neural tube defects. Screening Ultrasound: This is a survey done around 20 weeks gestation. This screen will look at the cardiac activity, heart rate and rhythm, assessment of the amniotic fluid volume, placenta appearance and location, and the umbilical cord vessel number and placental insertion site. They also do many measurements to make sure the baby is growing properly. The cervical length is also measured and movement is evaluated. The sex of the baby can usually be determined. In the event of a positive screen: There are two diagnostic tests available if any screening tests come back with an increased risk. You would first be referred to Maternal Medicine to be seen by a genetic counselor. They would assess your risk and see if further diagnostic testing is warranted. The options are; chorionic villus sampling (CVS), usually done at 11 to 12 weeks of and amniocentesis which is generally donelater in around 15 to 20 weeks. All risks/benefits would be explained and you can decide what course of action is best for you and your family. Why you might choose to screen? ?? A desire to know as much as you can about your baby ?? If your baby had a genetic abnormality you can learn about it before they are born ?? Choose whether to continue the or to terminate Why you might choose to NOT screen? ?? You feel that whatever happens is fine and you would not terminate ?? You know you don't want to do any diagnostic tests even if the screening test showed a high possibility of a genetic abnormality For further information please call: [facility] [phone] Remedies for nausea and vomiting with ?? Eat small frequent meals every 2-3 hours if possible. ?? Avoid food at extremes of temperature and drinks with carbonation. ?? Eat foods that appeal to you, avoiding fats and spicy foods. ?? Avoid liquids with foods. Drink liquids 30-60 minutes before or after eating and sip slowly. ?? Bread, pasta, crackers, potatoes, and rice tend to be tolerated the best. ?? Don't worry about what you eat in the first 3 months, it is more important that you can eat and keep it down. ?? Try flat brigitte lázaro or brigitte tea ?? Before rising in the morning, eat a small amount of crackers or dry toast. ?? Peppermint tea ?? Brigitte is a herbal remedy for nausea and you can use it in any form. There are brigitte tablets youcan purchase. The dose 1000 mg a day in divided doses. ?? You may also try doxylamine (Unisom) 12.5 mg three times a day which is a sleeping medication along with Vitamin B6 25 mg three times a day. This combination takes up to a week to work so give it some time. ?? Benadryl (diphenhydramine) 25-50 mg every 8 hour or Dramamine (dimenhydrinate) 50-100 mg by mouthevery 4-6 hours. Both of these medication may cause some drowsiness ?? Other things that may help include an Accupressure band and acupuncture ?? If these methods fail there are many prescriptions that we can try If you begin to vomit more than 5 or 6 times a day and feel that you are unable to keep anything down, call the [facility] [phone] documented in this encounter Progress Notes Tawnya Maloney CNM - 09/20/2020 2:45 PM CDT Yancy Clinton is a 25 year old woman, who is not a previous CNM patient. She presents for a new OB Visit. This was a planned . FOB is Humberto who is in good health. FOB IS actively involved in relationship and this . She has not had bleeding since her LMP. She denies abdominal pain since her LMP. She has had nausea. has had vomiting. Any personal or family history of blood clots? No History of sickle cell anemia or trait? No Patient's last menstrual period was 07/08/2020 (exact date).. Estimated Date of Delivery: April 14, 2021 Ultrasound consistent with LMP. MENSTRUAL HISTORY frequency: every 28 days Last PAP: 2018, nilm. Neg HPV History of abnormal Pap? Yes, colposcopy in 2014 Health maintenance updated: yes Current medications are: Current Outpatient Medications: ??? cetirizine (ZYRTEC) 10 MG tablet, Take 10 mg by mouth daily, Disp: , Rfl: ??? Vit-Fe Fumarate-FA ( VITAMIN) 27-0.8 MG TABS, , Disp: , Rfl: ??? triamcinolone (KENALOG) 0.1 % external cream, Apply sparingly to affected area twice daily for one week, Disp: 80 g, Rfl: 0 INFECTION HISTORY HIV: No Hepatitis B: No Hepatitis C: No Tuberculosis: No Genital Herpes self: no Herpes partner: no Chlamydia: no Gonorrhea: no HPV: No BV: No Syphilis: No Chicken Pox: No, got vaccine OB HISTORY OB History Para Term AB Living 1 0 0 0 0 0 SAB TAB Ectopic Multiple Live Births 0 0 0 0 0 # Outcome Date GA Lbr Sherwin/2nd Weight Sex Delivery Anes PTL Lv 1 Current PERSONAL HISTORY Exercise Habits: aerobic and weight training 4-7 days per week. 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 Her job involves sedentary activity with no potential for toxic exposure. Travel plans: are none planned. Diet: eats regular meals and follows a balanced nutrition diet vitamins? Yes: Fish Oil? No Abuse concerns? No Any history if abuse, varbal, physical, sexual? No Hgb A1c screen: BMI > 30: No, 1st degree family DM: No, History of GDM: No, PCOS: No, High risk ethnicity: No Social History Socioeconomic History ??? Marital status: Spouse name: Humberto ??? Number of children: Not on file ??? Years of education: Not on file ??? Highest education level: Not on file Occupational History Employer: STUDENT Comment: [employer] ??? 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 Financial resource strain: [...] file Gets together: Not on file Attends latter-day service: Not on file Active member of [...] Social History Narrative ??? Not on file She reports that she has never smoked. She has never used smokeless tobacco. STD testing offered? Declined Last PHQ-9 score on record = No flowsheet data found. Last GAD7 score on record = No flowsheet data found. Alcohol Score = none Referral/Meds needed? no PAST MEDICAL/SURGICAL HISTORY No past medical history on file. Past Surgical History: Procedure Laterality Date ??? DENTAL SURGERY Zeigler teeth. age 15 FAMILY HISTORY Family History Problem Relation Age of Onset ??? No Known Problems Mother ??? Hypertension Father ??? No Known Problems Sister ??? Cancer Paternal Grandfather ??? No Known Problems Maternal Grandmother ??? Cerebrovascular Disease Maternal Grandfather ??? Diabetes Type 1 Paternal Grandmother ??? Obesity Paternal Grandmother ??? Alzheimer Disease No family hx of ??? Diabetes No family hx of ROS: CONSTITUTIONAL: NEGATIVE for fever, chills, change in weight INTEGUMENTARU/SKIN: NEGATIVE for worrisome rashes, moles or lesions EYES: NEGATIVE for vision changes or irritation ENT: NEGATIVE for ear, mouth and throat problems RESP: NEGATIVE for significant cough or SOB BREAST: NEGATIVE for masses, tenderness or discharge CV: NEGATIVE for chest pain, palpitations or peripheral edema GI: NEGATIVE for, abdominal pain, heartburn, or change in bowel habits. POS for n/v : NEGATIVE for unusual urinary or vaginal symptoms. Periods are regular. MUSCULOSKELETAL: NEGATIVE for significant arthralgias or myalgia NEURO: NEGATIVE for weakness, dizziness or paresthesias PSYCHIATRIC: NEGATIVE for changes in mood or affect PHYSICAL EXAM Vitals: BP 108/72 (BP Location: Left arm, Cuff Size: Adult Regular) Wt 67.6 kg (149 lb) LMP 07/08/2020 (Exact Date) BMI 27.03 kg/m?? BMI= Body mass index is 27.03 kg/m??. GENERAL: 25 year old pleasant female, alert, cooperative and well groomed. NECK: Thyroid without enlargement and nodules. Lymph nodes not palpable. LUNGS: Clear to auscultation. BREAST: Symmetrical without lesions or nodes. Nipples everted. Areolas symmetric. No palpable axillary nodes. HEART: RRR without murmur. ABDOMEN: Soft without masses or tenderness. No scars noted.. LOWER EXTREMITIES: No edema. No significant varicosities. ASSESSMENT/PLAN: IUP at 10w4d ICD-10-CM 1. Encounter for supervision of other normal in first trimester Z34.81 Urine Culture Aerobic Bacterial Treponema Abs w Reflex to RPR and Titer Rubella Antibody IgG Quantitative HIV Antigen Antibody Combo CBC with platelets Hepatitis B surface antigen ABO/Rh type and screen consult for US for AMA patients: NA Genetic Testing reviewed and discussed, patient desires to discuss further with FOB. Handout provided COUNSELING ?? Instructed on use of triage nurse line and contacting the business analysis professional CNM after hours in an emergency. ?? Symptoms of N&V and fatigue usually start to resolve around 12-16 weeks , provided with AVS on prevention ?? Reviewed CNM philosophy, call schedule for labor and delivery, and [facility] for delivery ?? 1st OB handout given outlining appointment spacing and CNM information ?? Recommend to gain 25 pounds with her . ?? Encouraged patient to take PNV's/DHA ?? Travel precautions discussed, no air travel after 36 weeks and Zika Virus discussed ?? Will call patient with lab and ultrasound results when available Does patient desire a RN home visit from the psychiatric hospital? No If yes, paperwork completed? No F/U to be addressed next visit: Genetic testing, undecided Will return to the clinic in 4 weeks for her next routine check. Will call to be seen sooner if problems arise. Tawnya Maloney APRN, CNM documented in this encounter Nursing Amber Landa - 09/20/2020 2:45 PM CDT Chief Complaint Patient presents with ??? Care NPN 10w 4d, no concerns Initial BP 108/72 (BP Location: Left arm, Cuff Size: Adult Regular) Wt 67.6 kg (149 lb) LMP 07/08/2020 (Exact Date) BMI 27.03 kg/m?? Estimated body mass index is 27.03 kg/m?? as calculated from the following: Height as of 05/09/20: 1.581 m (5' 2.25). Weight as of this encounter: 67.6 kg (149 lb). BP completed using cuff size: regular Questioned patient about current smoking habits. Pt. has never smoked. The following HM Due: NONE Amber Lou CMA documented in this encounter Plan of Treatment Not on filedocumented as of this encounter Procedures Procedure Name Priority Date/Time Associated Diagnosis Comme nts RUBELLA ANTIBODY Routine 09/20/2020 2:16 PM Encounter for Resu lts for this IGG CDT supervision of other procedu re are [facility]. HIV ANTIGEN Routine 09/20/2020 2:16 PM Encounter for Results for this ANTIBODY COMBO CDT supervision of other proce dure are in [facility]. TREPONEMA ABS W Routine 09/20/2020 2:16 PM Encounter for Resul ts for this REFLEX TO RPR AND CDT supervision of other pr ocedure are in TITER [facility]. HEPATITIS B SURFACE Routine 09/20/2020 2:16 PM Encounter for R esults for this ANTIGEN CDT supervision of other procedu re are [facility]. ABO/RH TYPE AND Routine 09/20/2020 2:16 PM Encounter for Resul ts for this SCREEN CDT supervision of other procedu re are [facility]. CBC WITH PLATELETS Routine 09/20/2020 2:16 PM Encounter for Re sults for this CDT supervision of other procedu re are in [facility]. URINE CULTURE Routine 09/20/2020 2:15 PM Encounter for Results for this CDT supervision of other procedu re are in [facility]. documented in this encounter Results ABO/Rh type and screen (09/20/2020 2:16 PM CDT) [facility] Method Time Signature ABO O 09/20/2020 [facility] 6:35 PM CDT [facility] RH(D) Pos [facility] Antibody Neg 09/20/2020 [facility] Screen 6:35 PM CDT [facility] Test Valid [place] 09/20/2020 [facility] Only At [facility] 6:53 PM CDT [facility] Specimen 09/23/2020 09/20/2020 [facility] Expires 6:53 PM CDT [facility] Specimen Anatomical Collection Method Collection Time Receive d Time (Source) Location / / Volume Laterality Blood specimen 09/20/2020 2:16 PM 020 2:21 (specimen) CDT PM CDT Tawnya Maloney CNM LAB - BLOOD BANK TEST ORDER Performing Organization Address City/[facility]/ZIP Code Phon e Number M [facility] [address] [place], [place] [address] [facility] [address] [place] [id number] [facility] [phone] Hepatitis B surface antigen (09/20/2020 2:16 PM CDT) Patholo gist Method Time Signature Hep B Surface Nonreactive NR^Nonrea 09/21/2020 [facility] ctive 9:38 AM CDT [facility] Specimen Anatomical Collection Method Collection Time Receive d Time (Source) Location / / Volume Laterality Blood specimen 09/20/2020 2:16 PM 020 2:21 (specimen) CDT PM CDT Tawnya Maloney CNM LAB - BLOOD ORDERABLES Performing Organization Address City/State/ZIP Code Phon e Number [facility] [address] [place] [address] [facility] CBC with platelets (09/20/2020 2:16 PM CDT) P athologist Signature WBC 9.9 4.0 - 11.0 09/20/2020 [facility] 10e9/L 4:06 PM CDT [facility] RBC Count 4.26 3.8 - 5.2 09/20/2020 [facility] 10e12/L 4:06 PM CDT [facility] Hemoglobin 13.5 11.7 - 09/20/2020 [facility] 15.7 g/dL 4:06 PM CDT [facility] Hematocrit 40.1 35.0 - 09/20/2020 [facility] 47.0 % 4:06 PM CDT [facility] MCV 94 78 - 100 [facility] fl 4:06 PM CDT [facility] MCH 31.7 26.5 - 09/20/2020 [facility] 33.0 pg 4:06 PM CDT [facility] MCHC 33.7 31.5 - [facility]20[facility] 36.[facility]/dL 4:06 PM CDT [facility] RDW 11.7 10.0 - 09/20/2020 [facility] 15.0 % 4:06 PM CDT [facility] Platelet Count 249 150 - 450 09/20/2020 [facility] 10e9/L 4:06 PM CDT [facility] Specimen Anatomical Collection Method Collection Time Receive d Time (Source) Location / / Volume Laterality Blood specimen 09/20/2020 2:16 PM 020 2:21 (specimen) CDT PM CDT Tawnya PALMERM LAB - BLOOD ORDERABLES Performing Organization Address City/State/ZIP Code Phon e Number [facility] [address] [place], [place] [address] [address] HIV Antigen Antibody Combo (09/20/2020 2:16 PM CDT) [facility] gist Method Time Signature HIV Antigen Nonreactive NR^Nonrea 09/21/2020 [facility] ctive 9:38 AM CDT [facility] Comment: HIV-1 p24 Ag & HIV-1/HIV-2 Ab N ot Detected Specimen Anatomical Collection Method Collection Time Receive d Time (Source) Location / / Volume Laterality Blood specimen 09/20/2020 2:16 PM 020 2:21 (specimen) CDT PM CDT Tawnya PALMERM LAB - BLOOD ORDERABLES Performing Organization Address City/[facility]/ZIP Code Phon e Number [facility] [address] [place], [place] [id number] [place] [address] Rubella Antibody IgG Quantitative (09/20/2020 2:16 PM CDT) Analysis Performed At [facility] logist Time Signature Rubella Antibody 34 IU/mL 09/21/2020 [facility] IgG Quantitative 10:55 AM CDT [facility] Comment: Positive. ??Suggests previous exposure o r immunization and probable immunity Reference Range: ??Unvaccinated Negative 0-7 IU/mL Vaccinated or previous exposure Positive 10 IU/ml or greater Specimen Anatomical Collection Method Collection Time Receive d Time (Source) Location / / Volume Laterality Blood specimen 09/20/2020 2:16 PM 020 2:21 (specimen) CDT PM CDT Tawnya PALMERM LAB - BLOOD ORDERABLES Performing Organization Address City/State/ZIP Code Phon e Number [facility] [address] [place] [address] [facility] Treponema Abs w Reflex to RPR and Titer (09/20/2020 2:16 PM CDT) [facility] Method Time Signature Treponema Nonreactive NR^Nonrea 09/21/2020 [facility] ctive 9:45 AM CDT [facility] Comment: Methodology Change: Test performed on DiaSorin Liaison XL by Treponema pallidum Total Antibodies Assay as of . Specimen Anatomical Collection Method Collection Time Receive d Time (Source) Location / / Volume Laterality Blood specimen 09/20/2020 2:16 PM 020 2:21 (specimen) CDT PM CDT Tawnya Maloney CNM LAB - BLOOD ORDERABLES Performing Organization Address City/[facility]/ZIP Code Phon e Number [facility] [address] [place] [address] [facility] Urine Culture Aerobic Bacterial (09/20/2020 2:15 PM CDT) Component Value Ref Test Analysis Performed At [facility] Range Method Time Signature Specimen Midstream Urine INFECTIOUS Description [facility] Special Specimen 09/20/2020 INFECTIOUS Requests received in 7:58 PM CDT DISEASES preservative [facility] Culture Micro No growth 09/21/2020 INFECTIOUS 4:22 PM CDT [facility] Specimen (Source) Anatomical Collection Method Collection Time Re ceived Time Location / / Volume Laterality Examination of 09/20/2020 2:15 09/20/2020 2:20 midstream urine PM CDT PM CDT specimen (procedure) Tawnya Maloney CNM LAB - MICRO GENERAL ORDERABL ES Performing Organization Address City/State/ZIP Code Phon e Number INF[facility] [address] [place] [address] LABORATORY, [facility] documented in this encounter Visit Diagnoses Diagnosis Encounter for supervision of other alma l in first trimester documented in this encounter Care Teams Manager Mac Relationship Specialty Start Date End Date Leda Gandhi PA PCP - General Family Practice 05/04/20 02/27/[address], [place] [place] [address] Karen Garza PA-C Assigned PCP 05/20/20 06/13/22 [address] [facility] [address] [place] [address] documented as of this encounter
--- OUTSIDE RECORDS SUMMARY | 2022-10-10 23:52 | XMS_ITS | Encounter Summary ---
:1995 Author Organization [place] Address [address] [facility] [place] [address] Care Team Providers Name Role Phone Marisela Brito MD Primary Care Provider Unavailable Marisela Brito MD Unavailable Unavailable Reason for Visit Reason Onset Date Comments Refill Request 11/20/2017 Encounter Details Date Type Department Care Team Description 11/20/2017 Refill [facility] ysicians Marisela Brito MD Refill Request [address] [place] [address] [address] [place] [address] Social History Tobacco Use Types Packs/Day Years Used Date Smoking Tobacco: Never Smokeless Tobacco: Never Alcohol Use Standard Drinks/Week Comments No 0 (1 standard drink = 0.6 oz pure alcoho l) Sex Assigned at Date Recorded Not on file documented as of this encounter Miscellaneous Notes Telephone Encounter - Marimar Curtis CMA - 11/20/2017 11:57 AM CST CER can you fill for BJS - Dr Brito told Yancy she can call anytime for this and she is out and her psoriasis has kicked in so she would like a refill Pending Prescriptions: Disp Refills triamcinolone (KENALOG) 0.1 % cream 80 g 0 Sig: Apply sparingly to affected area twice daily for one week TRICAL ELECTRONICS ENGINEER documented in this encounter Plan of Treatment Not on filedocumented as of this encounter Visit Diagnoses Diagnosis Dermatitis Contact dermatitis and other eczema, due to unspecified cause documented in this encounter Care Teams Kindergarten Instructional Assistant Relationship Specialty Start Date End Date Marisela Brito MD PCP - General 12/10/9905/03 Marisela Brito MD Assigned PCP 06/10/15 documented as of this encounter
--- OUTSIDE RECORDS SUMMARY | 2022-10-10 23:52 | XMS_ITS | Encounter Summary ---
:1995 Author Organization [place] Address [address] [facility] [place] [address] Care Team Providers Name Role Phone Marisela Brito MD Primary Care Provider Unavailable Marisela Brito MD Unavailable Unavailable Reason for Visit Reason Onset Date Comments Medication Question 06/02/2016 Encounter Details Date Type Department Care Team Description 06/02/2016 Telephone [facility] Marisela Brito, [facility] ication Question Physicians [address] [place] [address] Social History Tobacco Use Types Packs/Day Years Used Date Smoking Tobacco: Never Smokeless Tobacco: Never Alcohol Use Standard Drinks/Week Comments No 0 (1 standard drink = 0.6 oz pure alcoho l) Sex Assigned at Date Recorded Not on file documented as of this encounter Miscellaneous Notes Telephone Encounter - Marisela Brito MD - 06/03/2016 11:34 AM CDT RX [facility] to [facility] Telephone Encounter - Judith Lorenzo MA - 06/03/2016 9:16 AM CDT Please send rx to mail order at pts request, thanks Renetta Pending Prescriptions: Disp Refills norethindrone-ethinyl estradiol-iron (GREGORIO*84 tab*3 Sig: Take 1 tablet by mouth daily Telephone Encounter - Judith Lorenzo MA - 06/02/2016 11:30 AM CDT Received a refill request from [facility] for control. This was originally send to 05/08. LM for pt to call me back if she wants changed to mail order. Renetta documented in this encounter Plan of Treatment Not on filedocumented as of this encounter Visit Diagnoses Diagnosis Encounter for surveillance of other cont raceptive - Primary documented in this encounter Care Teams Pet Care Attendant Relationship Specialty Start Date End Date Marisela Brito MD PCP - General 12/10/9905/03 Marisela Brito MD Assigned PCP 06/10/15 documented as of this encounter
--- OUTSIDE RECORDS SUMMARY | 2022-10-10 23:52 | XMS_ITS | Encounter Summary ---
:1995 Author Organization [place] Address [address] [facility] [place] [address] Care Team Providers Name Role Phone Marisela Brito MD Primary Care Provider Unavailable Reason for Visit Reason Onset Date Comments OB Education 05/03/2015 Encounter Details Date Type Department Care Team Description 05/03/2015 Telephone [facility] ysicians Marisela Brito MD OB Education [address] [place] [address] [address] [place] [address] Social History Tobacco Use Types Packs/Day Years Used Date Smoking Tobacco: Never Smokeless Tobacco: Never Alcohol Use Standard Drinks/Week Comments No 0 (1 standard drink = 0.6 oz pure alcoho l) Sex Assigned at Date Recorded Not on file documented as of this encounter Miscellaneous Notes Telephone Encounter - Marisela Brito MD - 05/07/2015 10:35 AM CDT Thank you. Telephone Encounter - Gaurav Ledesma - 05/04/2015 2:38 PM CDT Nilda called back and said recommendation is to repeat pap in one year (cotest HPV and pap) and to treat yeast. No other follow up necessary. Telephone Encounter - Judith Lorenzo - 05/04/2015 8:40 AM CDT Records faxed on 04/25/2015, spoke with nurse on this day as well( documentation of this in mychart encounter 04/25/2015). Called again today, apparently MD had not yet reviewed. Dr Lorezno is in the office today, Nilda his nurse, will have him address today. Nilda will call me back with his response.If I am not here, please send response to BJS. Renetta Telephone Encounter - Marisela Brito MD - 05/03/2015 3:54 PM CDT Can you call Dr Lorenzo's office-? Are they in agreement with merepeating her pap smear (hx of normal colposcopy a year ago) in one year Her recent pap smear was ascus , HPV pos for high risk virus We should have faxed to info to their office I can call if you think it would be best documented in this encounter Plan of Treatment Not on filedocumented as of this encounter Visit Diagnoses Not on filedocumented in this encounter Care Teams Senior Net Application Developer Relationship Specialty Start Date End Date Marisela Brito MD PCP - General 12/10/9905/03 documented as of this encounter
--- OUTSIDE RECORDS SUMMARY | 2022-10-10 23:52 | XMS_ITS | Encounter Summary ---
:1995 Author Organization [place] Address [address] [facility] [place] [address] Care Team Providers Name Role Phone Marisela Brito MD Primary Care Provider Unavailable Marisela Brito MD Unavailable Unavailable Reason for Visit Reason Comments Medication Refill Encounter Details Date Type Department Care Team Description 04/09/2017 Refill [facility] Marisela Brito MD Medication Refill Physicians [address] [place] [address] [address] [place] [address] Social History Tobacco Use Types Packs/Day Years Used Date Smoking Tobacco: Never Smokeless Tobacco: Never Alcohol Use Standard Drinks/Week Comments No 0 (1 standard drink = 0.6 oz pure alcoho l) Sex Assigned at Date Recorded Not on file documented as of this encounter Miscellaneous Notes Telephone Encounter - Vidhi Wilde CMA - 04/09/2017 7:32 AM CDT Received a refill for Pt's , Pt has enough for 1 year. DENIED refill. Pt will then need an O.V. Vidhi.DANILO Wilde (AAMA) documented in this encounter Plan of Treatment Not on filedocumented as of this encounter Visit Diagnoses Diagnosis Encounter for surveillance of other cont raceptive documented in this encounter Care Teams Layer Out Relationship Specialty Start Date End Date Marisela Brito MD PCP - General 12/10/9905/03 Marisela Brito MD Assigned PCP 06/10/15 documented as of this encounter
--- OUTSIDE RECORDS SUMMARY | 2022-10-10 23:52 | XMS_ITS | Encounter Summary ---
:1995 Author Organization [place] Address [address] [facility] [place] [address] Care Team Providers Name Role Phone Marisela Brito MD Primary Care Provider Unavailable Marisela Brito MD Unavailable Unavailable Reason for Visit Reason Onset Date Comments Refill Request 05/19/2016 Encounter Details Date Type Department Care Team Description 05/19/2016 Refill [facility] ysicians Marisela Brito MD Refill Request [address] [place] [address] [address] [place] [address] Social History Tobacco Use Types Packs/Day Years Used Date Smoking Tobacco: Never Smokeless Tobacco: Never Alcohol Use Standard Drinks/Week Comments No 0 (1 standard drink = 0.6 oz pure alcoho l) Sex Assigned at Date Recorded Not on file documented as of this encounter Miscellaneous Notes Telephone Encounter - Marimar Curtis CMA - 05/19/2016 4:18 PM CDT Spoke to Yancy to let her know her rx was sent to new pharmacy Telephone Encounter - Marisela Brito MD - 05/19/2016 3:34 PM CDT Done- notify patient Telephone Encounter - Marimar Curtis CMA - 05/19/2016 2:07 PM CDT Yancy called asking that we send in a prescription for her BCP to a different pharmacy. It was sent on 04/07/16 to [facility], however, her insurance won't fill at that pharmacy. She still is without that prescription. Can you send a new RX to the in [facility]. Pending Prescriptions: Disp Refills norethindrone-ethinyl estradiol-iron (GREGORIO*84 tab*3 Sig: Take 1 tablet by mouth daily documented in this encounter Plan of Treatment Not on filedocumented as of this encounter Visit Diagnoses Diagnosis Encounter for surveillance of other cont raceptive - Primary documented in this encounter Care Teams Director Medical Surgical Relationship Specialty Start Date End Date Marisela Brito MD PCP - General 12/10/9905/03 Marisela Brito MD Assigned PCP 06/10/15 documented as of this encounter
--- OUTSIDE RECORDS SUMMARY | 2022-10-10 23:52 | XMS_ITS | Encounter Summary ---
:1995 Author Organization [place] Address [address] [facility] [place] [address] Care Team Providers Name Role Phone Marisela Brito MD Primary Care Provider Unavailable Marisela Brito MD Unavailable Unavailable Reason for Visit Reason Onset Date Comments Refill Request 05/02/2016 Encounter Details Date Type Department Care Team Description 05/02/2016 Refill [facility] ysicians Marisela Brito MD Refill Request [address] [place] [address] [address] [place] [address] Social History Tobacco Use Types Packs/Day Years Used Date Smoking Tobacco: Never Smokeless Tobacco: Never Alcohol Use Standard Drinks/Week Comments No 0 (1 standard drink = 0.6 oz pure alcoho l) Sex Assigned at Date Recorded Not on file documented as of this encounter Miscellaneous Notes Telephone Encounter - Marimar Curtis CMA - 05/06/2016 10:03 AM CDT Spoke to Yancy to let her know her RX has been filled and sent to pharmacy Telephone Encounter - Marisela Brito MD - 05/05/2016 7:21 PM CDT Refilled- please notify Telephone Encounter - Marimar Curtis CMA - 05/05/2016 4:02 PM CDT Spoke to Yancy and she applies it on the back of her upper thigh and buttock area. Telephone Encounter - Marisela Brito MD - 05/05/2016 3:13 PM CDT Where does Yancy apply the cream? Telephone Encounter - Marimar Curtis CMA - 05/02/2016 2:30 PM CDT Yancy saw you in March and she wasn't sure if she needed this cream or not. The tube she has has so can you please send in another Rx today. Pending Prescriptions: Disp Refills triamcinolone (KENALOG) 0.1 % cream 80 g 0 Sig: Apply sparingly to affected area twice daily for one week documented in this encounter Plan of Treatment Not on filedocumented as of this encounter Visit Diagnoses Diagnosis Dermatitis - Primary Contact dermatitis and other eczema, due to unspecified cause documented in this encounter Care Teams Fabrication And Assembly Supervisor Relationship Specialty Start Date End Date Marisela Brito MD PCP - General 12/10/9905/03 Marisela Brito MD Assigned PCP 06/10/15 documented as of this encounter
--- OUTSIDE RECORDS SUMMARY | 2022-10-10 23:52 | XMS_ITS | Encounter Summary ---
:1995 Author Organization [place] Address [address] [facility] [place] [address] Care Team Providers Name Role Phone Marisela Brito MD Unavailable Unavailable Leda Gandhi Primary Care Provider [phone] Reason for Referral Consultation (Routine) - Closed Specialty Diagnoses / Procedures Referred By Contact Refer red To Contact Dermatology Diagnoses Dermatitis Karen Garza PA-C [address] [address] Referral ID Status Reason Start Date Expiration Date Visits Requ ested Visits Authorized [id number] Closed 05/09/2020 05/09/2021 1 1 Reason for Visit Reason Comments Derm Problem Encounter Details Date Type Department Care Team Description 05/09/2020 Office Visit [facility] Karen Garza Dermatitis Physicians [place] [address] [place] [address] [address] [place], [place] [address] [phone] Social History Tobacco Use Types Packs/Day Years Used Date Smoking Tobacco: Never Smokeless Tobacco: Never Alcohol Use Standard Drinks/Week Comments No 0 (1 standard drink = 0.6 oz pure alcoho l) Sex Assigned at Date Recorded Not on file COVID-19 Exposure Response Date Recorded In the last month, have you been in contact with No / Unsure 05/09/2020 1:45 PM CDT someone who was confirmed or suspected to have Coronavirus / COVID-19? documented as of this encounter Last Filed Vital Signs Vital Sign Reading Time Taken Comments Blood Pressure 106/62 05/09/2020 1:53 PM CDT Pulse 76 05/09/2020 1:53 PM CDT Temperature 36.6 ??C (97.8 ??F) 05/09/2020 1:53 PM CDT Respiratory Rate - - Oxygen Saturation - - Inhaled Oxygen Concentration - - Weight 68.3 kg (150 lb 9.6 oz) 05/09/2020 1:53 PM CDT Height 158.1 cm (5' 2.25) 05/09/2020 1:53 PM CDT Body Mass Index 27.32 05/09/2020 1:53 PM CDT documented in this encounter Patient Instructions Patient InstructionsKaren Faria PA-C - 05/09/2020 1:45 PM CDT [facility] [address] [place] [address] [place] [address] -- appt line [phone] -- fax Let me know when scheduled. Things to try: - lactose free - clotrimazole (Lotrimin) twice daily. - low fructose documented in this encounter Progress Notes Karen Faria PA-C - 05/09/2020 1:45 PM CDT CC: Skin issues History: 2011 Asha was camping in 2011 with dad in [place] and had itchy lesion on leg, and dad gave his psoriasis cream triamcinolone, which helped and this went away. Asha has struggled with sensitive skin in general, but then 10/2019 was in [place] again and developed rash especially on lower right buttock, and dad gave her fluocinolone cream, and this does not seem to help. She continues to have this rash to some degree since that time, and also has a patch on right leg. She has been trying triamcinolone and fluocinonide. Tried Brevera, and then rotates betweenAveeno and Cetaphil for general moisturizer. She denies any change to laundry, diet (tried elimination diets- gluten, alcohol). Sister has similar rash even worse. Rash itchy, and at times has scaling. PMH, MEDICATIONS, ALLERGIES, SOCIAL AND FAMILY HISTORY in [facility] and reviewed by me personally. ROS negative other than the symptoms noted above in the HPI. Examination BP 106/62 (BP Location: Right arm, Patient Position: Chair, Cuff Size: Adult Regular) Pulse 76 Temp 97.8 ??F (36.6 ??C) Ht 1.581 m (5' 2.25) Wt 68.3 kg (150 lb 9.6 oz) LMP 04/16/2020 BMI 27.32 kg/m?? Constitutional: Sitting comfortably, in no acute distress. Vital signs noted Neck: no adenopathy, trachea midline and normal to palpation Cardiovascular: regular rate and rhythm, no murmurs, clicks, or gallops Respiratory: normal respiratory rate and rhythm, lungs clear to auscultation SKIN: No jaundice/pallor. Erythematous papules coalescing on right inferior buttock. No tenderness to palpation. No vesicles. Psychiatric: mentation appears normal and affect normal/bright A/P ICD-10-CM 1. Dermatitis L30.9 triamcinolone (KENALOG) 0.1 % external cream DERMATOLOGY REFERRAL hydrOXYzine (ATARAX) 25 MG tablet DISCUSSION: Rash consistent with dermatitis. Suspect this is from exposure or still possible food intolerance, so encouraged patient to continue trying to think of what changed. Continue to avoid hot shower, pat dry, apply high quality lotion. Will refer to dermatology for further eval and possible biopsy. [facility] Things to try in meantime: - lactose free diet - clotrimazole (Lotrimin) twice daily. - low fructose diet follow up visit: As needed Karen Faria PA-C [facility] Physicians documented in this encounter Nursing Notes Grace Colbert CMA - 05/09/2020 1:45 PM CDT Yancy Clinton is here for dry patches of skin that she has had on and off for years. This time, not going away. Questioned patient about current smoking habits. Pt. has never smoked. PULSE regular My Chart: active CLASSIFICATION OF OVERWEIGHT AND OBESITY BY BMI Obesity Class BMI(kg/m2) Underweight < 18.5 Normal 18.5-24.9 Overweight 25.0-29.9 OBESITY I 30.0-34.9 II 35.0-39.9 EXTREME OBESITY III >40 Patient's BMI Body mass index is 27.32 kg/m??. http://hin.nhlbi.nih.gov/menuplanner/menu.cgi Pre-visit planning Immunizations - up to date Colonoscopy - Mammogram - Asthma - PHQ9 - ALCON-7 - documented in this encounter Plan of Treatment Scheduled Referrals Name Type Priority [facility] Diagnoses [facility] Referral Routine Dermatitis Ordered : 05/09/2020 documented as of this encounter Visit Diagnoses Diagnosis Dermatitis Contact dermatitis and other eczema, due to unspecified cause documented in this encounter Care Teams Cloud Software Engineer Relationship Specialty Start Date End Date Leda Gandhi PA PCP - General Family Practice 05/04/20 02/27/21 [address] [facility] [address] [place] [address] Marisela Brito MD Assigned PCP 06/10/15 documented as of this encounter
--- OUTSIDE RECORDS SUMMARY | 2022-10-10 23:52 | XMS_ITS | Encounter Summary ---
:1995 Author Organization [place] Address [address] [facility] [address] Care Team Providers Name Role Phone Marisela Brito MD Primary Care Provider Unavailable Marisela Brito MD Unavailable Unavailable Reason for Visit Reason Comments Physical not fasting Encounter Details Date Type Department Care Team Description 10/17/2019 Office Visit [facility] Marisela Brito for surveillance of other contraceptive; Zack Olivera MD [address] [place] [address] Social History Tobacco Use Types Packs/Day Years Used Date Smoking Tobacco: Never Smokeless Tobacco: Never Alcohol Use Standard Drinks/Week Comments No 0 (1 standard drink = 0.6 oz pure alcoho l) Sex Assigned at Date Recorded Not on file documented as of this encounter Last Filed Vital Signs Vital Sign Reading Time Taken Comments Blood Pressure - - Pulse 78 10/17/2019 5:49 PM TECHNOLOGY INTERN Temperature 36.1 ??C (97 ??F) 10/17/2019 5:49 PM TECHNOLOGY INTERN Respiratory Rate - - Oxygen Saturation 99% 10/17/2019 5:49 PM TECHNOLOGY INTERN Inhaled Oxygen Concentration - - Weight 68 kg (150 lb) 10/17/2019 5:49 PM TECHNOLOGY INTERN Height 160 cm (5' 3) 10/17/2019 5:49 PM TECHNOLOGY INTERN Body Mass Index 26.57 10/17/2019 5:49 PM TECHNOLOGY INTERN documented in this encounter Progress Notes Marisela Brito MD - 10/17/2019 5:30 PM CST Chief Complaint: Yancy Clinton is an 24 year old woman who presents for preventive health visit. Besides routine health maintenance, she wishes to discuss: Psoriasis , back of legs, needs refill of topical steroids Stopped her BCP one month ago- engaged to be next August Encouraged to start vitamins Undecided about contraceptive: intends to get History of high risk HPV- normal pap smear 12 months ago (PHV negative) Healthy Habits: Do you get at least three servings of calcium containing foods daily (dairy, green leafy vegetables,etc.)? yes Outside of work or daily activities, how many days per week do you exercise for 30 minutes or longer?works out seven days a week- at home Have you had an eye exam in the past two years? yes Do you see a dentist twice per year?scheduled in November PHQ-2 Over the last two weeks- Have you been bothered by little interest or pleasure in doing things? No Over the last two weeks- Have you been feeling down, depressed, or hopeless? No Abuse: Current or Past (Physical, Sexual or Emotional)- no Do you feel safe in your environment - no Social History Tobacco Use ??? Smoking status: Never Smoker ??? Smokeless tobacco: Never Used Substance Use Topics ??? Alcohol use: No Alcohol/week: 0.0 standard drinks The patient does not drink >3 drinks per day nor >7 drinks per week. Reviewed orders with patient. Reviewed health maintenance and updated orders accordingly - Yes History of abnormal Pap smear: NO - age 21-29 PAP every 3 years recommended All Histories reviewed and updated in [facility]. Social history: working in [employer] ROS: CONSTITUTIONAL: NEGATIVE for fever, chills, change in weight INTEGUMENTARU/SKIN: pruritic rash posterior legs EYES: NEGATIVE for vision changes or irritation ENT: NEGATIVE for ear, mouth and throat problems RESP: NEGATIVE for significant cough or SOB BREAST: NEGATIVE for masses, tenderness or discharge CV: NEGATIVE for chest pain, palpitations or peripheral edema GI: NEGATIVE for nausea, abdominal pain, heartburn, or change in bowel habits : NEGATIVE for unusual urinary or vaginal symptoms. Periods are regular. MUSCULOSKELETAL: NEGATIVE for significant arthralgias or myalgia NEURO: NEGATIVE for weakness, dizziness or paresthesias PSYCHIATRIC: NEGATIVE for changes in mood or affect OBJECTIVE: Pulse 78 Temp 97 ??F (36.1 ??C) (Oral) Ht 1.6 m (5' 3) Wt 68 kg (150 lb) LMP 09/16/2019 (Approximate) SpO2 99% BMI 26.57 kg/m?? General appearance: Healthy Skin: Symmetrical rash, posterior upper thighs- multiple oval lesions, no scale. No atypical appearing moles on inspection of trunk and extremities. External ears and canals clear bilaterally. TM's normal bilaterally. Nose normal without lesions or discharge. Oropharynx normal. Neck supple without palpable adenopathy. Breasts are symmetric. No dominant, discrete, fixed or suspicious masses are noted. No skin or nipple changes or axillary nodes. Regular rate and rhythm. S1 and S2 normal, no murmurs, clicks, gallops or rubs. No edema or JVD. Chest is clear; no wheezes or rales. The abdomen is soft without tenderness, guarding, mass or organomegaly. Bowel sounds are normal. No CVA tenderness or inguinal adenopathy noted. Pelvic: deferred Rectal exam: deferred Extremities: negative. COUNSELING: Reviewed preventive health counseling, as reflected in patient instructions Special attention given to: Folic Acid Counseling ATP III Guidelines ICSI Preventive Guidelines ASSESSMENT/PLAN: (Z30.49) Encounter for surveillance of other contraceptive Comment: Plan: CL AFF HEMOGLOBIN (BFP), VENOUS COLLECTION (L30.9) Dermatitis Comment: Plan: triamcinolone (KENALOG) 0.1 % external cream NOLOGY INTERN documented in this encounter Nursing Notes Odalys Pérez CMA - 10/17/2019 5:30 PM CST Chief Complaint Patient presents with ??? Physical not fasting Pre-visit Screening: Immunizations: up to date Colonoscopy: NA Mammogram: NA Asthma Action Test/Plan: NA PHQ9: PHQ-2 given GAD7: NA Questioned patient about current smoking habits Pt. has never smoked. Ok to leave detailed message on voice mail for today's visit only yes, phone # [phone] NOLOGY INTERN documented in this encounter Plan of Treatment Not on filedocumented as of this encounter Procedures Procedure Name Priority Date/Time Associated Diagnosis Comme nts HC VENOUS Routine 10/17/2019 5:51 PM Encounter for COLLECTION TECHNOLOGY INTERN surveillance of other contraceptive ZZCL AFF HEMOGLOBIN Routine 10/17/2019 Encounter for Results for this surveillance of other proced ure are in contraceptive the results section. documented in this encounter Results CL AFF HEMOGLOBIN (BFP) (10/17/2019) P athologist Signature Hemoglobin 14.5 11.7 - 15.7 BFP INTERNAL g/dL Specimen (Source) Anatomical Location Collection Method / Collectio n Time Received Time / Laterality Volume 10/17/2019 Marisela Brito MD LABORATORY Performing Organization Address City/State/ZIP Code Phon e Number BFP INTERNAL documented in this encounter Visit Diagnoses Diagnosis Encounter for surveillance of other cont raceptive Dermatitis Contact dermatitis and other eczema, due to unspecified cause documented in this encounter Care Teams Title Clerk Relationship Specialty Start Date End Date Marisela Brito MD PCP - General 12/10/9905/03 Marisela Brito MD Assigned PCP 06/10/15 documented as of this encounter
--- OUTSIDE RECORDS SUMMARY | 2022-10-10 23:52 | XMS_ITS | Encounter Summary ---
:1995 Author Organization [place] Address [address] [facility] [place] [address] Care Team Providers Name Role Phone Leda Gandhi Primary Care Provider [phone] Karen Garza PA-C Unavailable [phone] Encounter Details Date Type Department Care Team Description 09/13/2020 Travel Social History Tobacco Use Types Packs/Day Years Used Date Smoking Tobacco: Never Smokeless Tobacco: Never Alcohol Use Standard Drinks/Week Comments Not Currently 0 (1 standard drink = 0.6 oz pure alcoho l) Sex Assigned at Date Recorded Not on file COVID-19 Exposure Response Date Recorded In the last month, have you been in contact with No / Unsure 09/13/2020 8:27 AM CDT someone who was confirmed or suspected to have Coronavirus / COVID-19? documented as of this encounter Plan of Treatment Not on filedocumented as of this encounter Visit Diagnoses Not on filedocumented in this encounter Care Teams Capacitor Assembler Relationship Specialty Start Date End Date Leda Gandhi PA PCP - General Family Practice 05/04/20 02/27/[address], [address] [place] [address] Karen Garza PA-C Assigned PCP 05/20/20 06/13/[address], [facility] [address] [place] [address] documented as of this encounter
--- OUTSIDE RECORDS SUMMARY | 2022-10-10 23:52 | XMS_ITS | Encounter Summary ---
:1995 Author Organization [place] Address [address] [facility] [place] [address] Care Team Providers Name Role Phone Leda Gandhi Primary Care Provider [phone] Karen Garza-C Unavailable [phone] Reason for Visit Reason Comments Care Encounter Details Date Type Department Care Team Description 09/13/[address] [facility] andres of normal Visit Clinic [facility] (Primary Dx) [address] [place] [id number] Social History Tobacco Use Types Packs/Day Years [...] / COVID-19? documented as of this encounter Progress Notes Kandice Estrella RN - 09/13/2020 8:30 AM CDT NPN nurse visit done over the phone documented in this encounter Nursing Notes Kandice Estrella RN - 09/13/2020 8:30 AM CDT NPN nurse visit done over the phone. Pt will be given NPN folder and book at her upcoming appt. Discussed optional screening available to assess chromosomal anomalies. Questions answered. Pt advised to call the clinic if she has any questions or concerns related to her . labs will be obtained at her upcoming appt. New visit scheduled on 09/20 with Tawnya. 9w4d Last pap: within the two years. Patient supplied answers from flow sheet for: OB Questionnaire. Past Medical History Diabetes?: No Hypertension : No Heart disease, mitral valve prolapse or rheumatic fever?: No An autoimmune disease such as lupus or rheumatoid arthritis?: No Kidney disease or urinary tract infection?: No Epilepsy, seizures or spells?: No Migraine headaches?: No A stroke or loss of function or sensation?: No Any other neurological problems?: No Have you ever been treated for depression?: No Are you having problems with crying spells or loss of self-esteem?: No Have you ever required psychiatric care?: No Have you ever had hepatitis, liver disease or jaundice?: No Have you been treated for blood clots in your veins, deep vein thromosis, inflammation in the veins,thrombosis, phlebitis, pulmonary embolism or varicosities?: No Have you had excessive bleeding after surgery or dental work?: No Do you bleed more than other women after a cut or scratch?: No Do you have a history of anemia?: No Have you ever had thyroid problems or taken thyroid medication?: No Do you have any endocrine problems?: No Have you ever been in a major accident or suffered serious trauma?: No Within the last year, has anyone hit, slapped, kicked or otherwise hurt you?: No In the last year, has anyone forced you to have sex when you didn't want to?: No Past Medical History 2 Have you ever received a blood transfusion?: No Would you refuse a blood transfusion if a doctor judged it to be medically necessary?: No If you answered Yes, would you rather than receive a blood transfusion?: No If you answered Yes, is this for congregation reasons?: No Does anyone in your home smoke?: No Do you use tobacco products?: No Do you drink beer, wine or hard liquor?: (!) Yes Do you use any of the following: marijuana, speed, cocaine, heroin, hallucinogens or other drugs?: No Is your blood type Rh negative?: Unknown Have you ever had abnormal antibodies in your blood?: Unknown Have you ever had asthma?: No Have you ever had tuberculosis?: No Do you have any allergies to drugs or twwr-lnh-geylbuu medications?: (!) Yes Allergies: Dust Mites, Aspartame, Ethanol, Venlafaxine, Hydrochloride, Sertraline: (!) Yes Have you had any breast problems?: No Have you ever breastfed?: No Have you had any gynecological surgical procedures such as cervical conization, a LEEP procedure, laser treatment, cryosurgery of the cervix or a dilation and curettage, etc?: No Have you ever had any other surgical procedures?: No Have you been hospitalized for a nonsurgical reason excluding normal delivery?: No Have you ever had any anesthetic complications?: No Have you ever had an abnormal pap smear?: (!) Yes(age 20?) Past Medical History (Continued) Do you have a history of abnormalities of the uterus?: No Did your mother take MICHAEL or any other hormones when she was with you?: No Did it take you more than a year to become ?: No Have you ever been evaluated or treated for infertility?: No Is there a history of medical problems in your family, which you feel may be important to this ?: No Do you have any other problems we have not asked about which you feel may be important to this ?: No Symptoms since last menstrual period Do you have any of the following symptoms: abdominal pain, blood in stools or urine, chest pain, shortness of breath, coughing or vomiting up blood, your heart racing or skipping beats, nausea and vomiting, pain on urination or vaginal discharge or bleed: (!) Yes(breast tenderness, nausea, fatigue) Current medications, including urcl-jdl-rrxbwgd medications, you are using? (If not applicable answer none): , biotin, allergy juana Will the patient be 35 years old or older at the time of delivery?: No Has the patient, baby's father or anyone in either family had: Thalassemia (Liberian, Hebrew, Mediterranean or background only) and an MCV result less than 80?: (P) No Neural tube defect such as meningomyelocele, spina bifida or anencephaly?: (P) No Congenital heart defect?: (!) Yes(maternal cousin) Down's Syndrome?: (P) No Venancio-Sachs disease (Religion, Cajun, Swedish-[place])?: (P) No Sickle cell disease or trait ()?: (P) No Hemophilia or other inherited problems of blood?: (P) No Muscular dystrophy?: (P) No Cystic fibrosis?: (P) No Dylan's chorea?: (P) No Mental retardation/autism?: (P) No If yes, was the person tested for fragile X?: (P) No Any other inherited genetic or chromosomal disorder?: (P) No Maternal metabolic disorder (e.g Insulin-dependent diabetes, PKU)?: (P) No A child with defects not listed above?: (P) No Recurrent loss or stillbirth?: No Has the patient had any medications/street drugs/alcohol since her last menstrual period?: No Does the patient or baby's father have any other genetic risks?: No Infection History Do you object to being tested for Hepatitis B?: (P) No Do you object to being tested for HIV?: (P) No Do you feel that you are at high risk for coming in contact with the AIDS virus?: (P) No Have you ever been treated for tuberculosis?: (P) No Have you ever had a positive skin test for tuberculosis?: (P) No Do you live with someone who has tuberculosis?: (P) No Have you ever been exposed to tuberculosis?: (P) No Do you have genital herpes?: (P) No Does your partner have genital herpes?: (P) No Have you had a viral illness since your last period?: (P) No Have you ever had gonorrhea, chlamydia, syphilis, venereal warts, trichomoniasis, pelvic inflammatory disease or any other sexually transmitted disease?: (P) No Do you know if you are a genital group B streptococcus carrier?: (P) No Have you had chicken pox/varicella?: (P) Unknown Have you been vaccinated against chicken Pox?: Unknown Have you had any other infectious diseases?: (P) No Kandice Dias RN documented in this encounter Plan of Treatment Not on filedocumented as of this encounter Results Treponema Abs w Reflex to RPR and Titer (09/20/2020 2:16 PM CDT) [facility] Method Time Signature Treponema Nonreactive NR^Nonrea 09/21/2020 [facility] Antibodies ctive 9:45 AM CDT [facility] Comment: Methodology Change: Test performed on DiaSorin Liaison XL by Treponema pallidum Total Antibodies Assay as of . Specimen Anatomical Collection Method Collection Time Receive d Time (Source) Location / / Volume Laterality Blood specimen 09/20/2020 2:16 PM 020 2:21 (specimen) CDT PM CDT Tawnya Maloney CNM LAB - BLOOD ORDERABLES Performing Organization Address City/[facility] Code Phon e Number [address] Rubella Antibody IgG Quantitative (09/20/2020 2:16 PM CDT) [facility] Signature Rubella Antibody 34 IU/mL 09/21/2020 [facility] O F IgG Quantitative 10:55 AM CDT [facility] Comment: Positive. ??Suggests previous exposure o r [...] Performing Organization Address City/[facility] Phon e Number [address] HIV Antigen Antibody Combo (09/20/2020 2:16 PM CDT) [facility] Method Time Signature HIV Antigen Nonreactive NR^Nonrea 09/21/2020 [facility] Antibody ctive 9:38 AM CDT [facility] Comment: HIV-1 p24 Ag & HIV-1/HIV-2 Ab N ot Detected Specimen Anatomical Collection Method Collection Time Receive d Time (Source) Location / / Volume Laterality Blood specimen 09/20/2020 2:16 PM 020 2:21 (specimen) CDT PM CDT Tawnya Maloney CNM LAB - BLOOD ORDERABLES Performing Organization Address City/State/ZIP Code Phon e Number [facility] [address] CBC with platelets (09/20/2020 2:16 PM CDT) athologist Signature WBC 9.9 4.0 - 11.0 09/20/2020 [place] 10e9/L 4:06 PM CDT [facility] RBC Count 4.26 3.8 - 5.2 09/20/2020 [place] 10e12/L 4:06 PM CDT [facility] Hemoglobin 13.5 11.7 - 09/20/2020 [place] 15.7 g/dL 4:06 PM CDT [facility] Hematocrit 40.1 35.0 - 09/20/2020 [place] 47.0 % 4:06 PM CDT [facility] MCV 94 78 - 100 09/20/2020 [place] fl 4:06 PM CDT [facility] MCH 31.7 26.5 - 09/20/2020 [place] 33.0 pg 4:06 PM CDT [facility] MCHC 33.7 31.5 - 09/20/2020 [place] 36.5 g/dL 4:06 PM CDT [facility] RDW 11.7 10.0 - 09/20/2020 [place] 15.0 % 4:06 PM CDT [facility] Platelet Count 249 150 - 450 09/20/2020 [place] 10e9/L 4:06 PM CDT [facility] Specimen Anatomical Collection Method Collection Time Receive d Time (Source) Location / / Volume Laterality Blood specimen 09/20/2020 2:16 PM 020 2:21 (specimen) CDT PM CDT Tawnya Maloney CNM LAB - BLOOD ORDERABLES Performing Organization Address City/State/ZIP Code Phon e Number [facility] [address] [place], [place] [address] [address] Hepatitis B surface antigen (09/20/2020 2:16 PM CDT) [facility] Method Time Signature Hep B Surface Nonreactive NR^Nonrea 09/21/2020 [facility] ctive 9:38 AM CDT [facility] Specimen Anatomical Collection Method Collection Time Receive d Time (Source) Location / / Volume Laterality Blood specimen 09/20/2020 2:16 PM 020 2:21 (specimen) CDT PM CDT Tawnya Maloney CNM LAB - BLOOD ORDERABLES Performing Organization Address City/State/ZIP Code Phon e Number [facility] [address] [place] [address] [facility] ABO/Rh type and screen (09/20/2020 2:16 PM CDT) [facility] Method Time Signature ABO O 09/20/2020 [facility] 6:35 PM CDT [facility] RH(D) Pos [facility] Antibody Neg 09/20/2020 [place] Screen 6:35 PM CDT [facility] Test Valid [place] 09/20/2020 [facility] Only At [facility] 6:53 PM CDT [facility] Specimen 09/23/2020 09/20/2020 [facility] Expires 6:53 PM CDT [facility] Specimen Anatomical Collection Method Collection Time Receive d Time (Source) Location / / Volume Laterality Blood specimen 09/20/2020 2:16 PM 020 2:21 (specimen) CDT PM CDT Tawnya Maloney CNM LAB - BLOOD BANK TEST ORDER Performing Organization Address City/[facility]/ZIP [facility] Phon e Number [facility] [address] [address] [employer] [address] [phone] Urine Culture Aerobic Bacterial (09/20/2020 2:15 PM CDT) Component Value Ref Test Analysis Performed At [facility] Range Method Time Signature Specimen Midstream Urine INFECTIOUS Description [facility] [employer] [facility] Special Specimen 09/20/2020 INFECTIOUS Requests received in 7:58 PM CDT [facility] [employer] [facility] [facility] Culture Micro No growth 09/21/2020 INFECTIOUS 4:22 PM CDT [facility] Specimen (Source) Anatomical Collection Method Collection Time Re ceived Time Location / / Volume Laterality Examination of 09/20/2020 2:15 09/20/2020 2:20 midstream urine PM CDT PM CDT specimen (procedure) Tawnya Maloney CNM LAB - MICRO GENERAL ORDERABL ES Performing Organization Address City/State/ZIP Code Phon e Number [facility] [address] [facility] [place] [address] LABORATORY, [employer] documented in this encounter Visit Diagnoses Diagnosis Supervision of normal - Primar y Supervision of other normal documented in this encounter Care Teams Oxygen Furnace Operator Relationship Specialty Start Date End Date Leda Gandhi PA PCP - General Family Practice 05/04/20 02/27/[address], [address] [place] [id number] Karen Garza PA-C Assigned PCP 05/20/20 06/13/[address], [address] [place], [place] [id number] documented as of this encounter
--- OUTSIDE RECORDS SUMMARY | 2022-10-10 23:52 | XMS_ITS | Encounter Summary ---
:1995 Author Organization [place] Address [address] [place] [address] Care Team Providers Name Role Phone Marisela Brito MD Primary Care Provider Unavailable Marisela Brito MD Unavailable Unavailable Leda Gandhi Primary Care Provider [phone] Karen Garza PA-C Unavailable [phone] Tawnya Maloney CNM Unavailable Gretta Fishman CNStefanie Unavailable Karen Garza PA-C Primary Care Provider [phone] Tawnya Maloney CNM Unavailable Gretta Fishman CNM Unavailable Marisela Brito MD Unavailable Unavailable Karen Garza PA-C Unavailable [phone] Reason for Visit Reason Comments Medication Refill Encounter Details Date Type Department Care Team Description 04/14/2018 Refill [facility] Marisela Brito MD Medication Refill Physicians [address] [place] [address] [address] [place] [address] Social History Tobacco Use Types Packs/Day Years Used Date Smoking Tobacco: Never Smokeless Tobacco: Never Alcohol Use Standard Drinks/Week Comments No 0 (1 standard drink = 0.6 oz pure alcoho l) Sex Assigned at Date Recorded Not on file documented as of this encounter Miscellaneous Notes Telephone Encounter - Kerline Whipple CMA - 04/14/2018 7:26 AM CDT Patient needs to come in for annual physical in April. documented in this encounter Plan of Treatment Not on filedocumented as of this encounter Visit Diagnoses Diagnosis Encounter for surveillance of other cont raceptive documented in this encounter Care Teams Route Specialist Relationship Specialty Start Date End Date Marisela Brito MD PCP - General 12/10/9905/03 Leda Gandhi PCP - General Family Practice 05/04/20 02/27/21 [facility] H[facility] [address], [address] [address] Karen Garza, PCP - General Family Medicine 02/28/21 [facility] [address], [address] [address] Marisela Brito MD Assigned PCP 06/10/15 Karen Garza, Assigned PCP 05/20/2005/24 PA-C [address], [address] [address] Tawnya Maloney CNM Assigned OBGYN Provider 10/07/20 10/27/20 [address] [place], [place] [phone] Gretta Fishman CNM Assigned OBGYN Provider 10/28/20 08/17/21 [address] [place] [address] Tawnya Maloney CNM Assigned OBGYN Provider 08/18/21 03/22/22 [address] [place] [address] Gretta Fishman CNM Assigned OBGYN Provider 03/23/22 04/25/22 [address] [place] [address] Marisela Brito MD Assigned PCP 06/14/22 Karen Garza, Assigned PCP 07/05/22 [facility] [address], [address] [place] [address] documented as of this encounter
--- OUTSIDE RECORDS SUMMARY | 2022-10-10 23:52 | XMS_ITS | Encounter Summary ---
:1995 Author Organization [place] Address [address] [facility] [place] [address] Care Team Providers Name Role Phone Marisela Brito MD Primary Care Provider Unavailable Marisela Brito MD Unavailable Unavailable Reason for Visit Reason Comments Medication Refill Encounter Details Date Type Department Care Team Description 08/03/2018 Refill [facility] Leda Gandhi tileonardo Refill Physicians COREY Haines [address] [address] [facility] 100 [address] [place] [address] [address] [place] [address] [phone] (Wo rk) Social History Tobacco Use Types Packs/Day Years Used Date Smoking Tobacco: Never Smokeless Tobacco: Never Alcohol Use Standard Drinks/Week Comments No 0 (1 standard drink = 0.6 oz pure alcoho l) Sex Assigned at Date Recorded Not on file documented as of this encounter Miscellaneous Notes Telephone Encounter - Leda Gandhi PA - 08/04/2018 8:46 AM CDT Denied - Needs med check - this is not something we refill routinely w/o OV and there is no mention for need of this at her last appt COREY Leslie-Altagracia 08/04/2018 Telephone Encounter - Linda Alfaro MA - 08/04/2018 7:43 AM CDT Pending Prescriptions: Disp Refills triamcinolone (KENALOG) 0.1 % cream [Phar*75 g Sig: APPLY SPARINGLY TO AFFECTED AREA TWICE DAILY FOR ONE WEEK THIS IS MAIL ORDER Review for BJS You prescribed last for pt. 11-20-2017 Pt is over due for a yearly fasting px. I did send pt a my chart message on a ov. Please fax or deny Ghazal [phone] (home) documented in this encounter Plan of Treatment Not on filedocumented as of this encounter Visit Diagnoses Diagnosis Dermatitis Contact dermatitis and other eczema, due to unspecified cause documented in this encounter Care Teams Activity Director Relationship Specialty Start Date End Date Marisela Brito MD PCP - General 12/10/9905/03 Marisela Brito MD Assigned PCP 06/10/15 documented as of this encounter
--- OUTSIDE RECORDS SUMMARY | 2022-10-10 23:52 | XMS_ITS | Encounter Summary ---
:1995 Author Organization [place] Address [address] [facility] [place] [address] Care Team Providers Name Role Phone Marisela Brito MD Primary Care Provider Unavailable Marisela Brito MD Unavailable Unavailable Reason for Visit Reason Comments Physical Non-fasting with Pap Encounter Details Date Type Department Care Team Description 05/04/2017 Office Visit [facility] Marisela Brito for gynecological examination with abnormal finding (Primary Dx); Physicians MD Jarod Encounter for surveillance o f other contraceptive [address] [place] [address] [address] [place] [address] Social History Tobacco Use Types Packs/Day Years Used Date Smoking Tobacco: Never Smokeless Tobacco: Never Alcohol Use Standard Drinks/Week Comments No 0 (1 standard drink = 0.6 oz pure alcoho l) Sex Assigned at Date Recorded Not on file documented as of this encounter Last Filed Vital Signs Vital Sign Reading Time Taken Comments Blood Pressure 116/80 05/04/2017 5:37 PM CDT Pulse 67 05/04/2017 5:37 PM CDT Temperature 36.4 ??C (97.6 ??F) 05/04/2017 5:37 PM CDT Respiratory Rate - - Oxygen Saturation 99% 05/04/2017 5:37 PM CDT Inhaled Oxygen Concentration - - Weight 63.7 kg (140 lb 6.4 oz) 05/04/2017 5:37 PM CDT Height 158.8 cm (5' 2.5) 05/04/2017 5:37 PM CDT Body Mass Index 25.27 05/04/2017 5:37 PM CDT documented in this encounter Progress Notes Marisela Brito MD - 05/04/2017 5:30 PM CDT SUBJECTIVE: 21 year old female presents for pap smear: two years ago ASCUS with pos HPV Pap 2014-LSIL ?? HPV: vaccine completed STD screen: Declines- same sexual partner for years- chlamydia screening in past Besides routine health maintenance, she has no other health concerns today . Healthy Habits: Do you get at least three servings of calcium containing foods daily (dairy, green leafy vegetables,etc.) does not drink milk: encouraged foods high in calcium in her diet Outside of work or daily activities, how many days per week do you exercise for 30 minutes or longer? yes, regular exercise PHQ-2 Over the last two weeks- Have you been bothered by little interest or pleasure in doing things? No Over the last two weeks- Have you been feeling down, depressed, or hopeless? No Social History Substance Use Topics ??? Smoking status: Never Smoker ??? Smokeless tobacco: Never Used ??? Alcohol use No Reviewed orders with patient. Reviewed health maintenance and updated orders accordingly - Yes History of abnormal Pap smear: Last 3 Pap Results: No results found for: PAP 2016: Normal HPV NOT detected 2015:ASCUS HPV detected 2014 LSIL All Histories reviewed and updated in [facility]. ROS: C: NEGATIVE for fever, chills, change in weight I: NEGATIVE for worrisome rashes, moles or lesions E: NEGATIVE for vision changes or irritation ENT: NEGATIVE for ear, mouth and throat problems R: NEGATIVE for significant cough or SOB B: NEGATIVE for masses, tenderness or discharge CV: NEGATIVE for chest pain, palpitations or peripheral edema GI: NEGATIVE for nausea, abdominal pain, heartburn, or change in bowel habits : NEGATIVE for unusual urinary or vaginal symptoms. Periods are regular. 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 No BMI 25.27 kg/m2 \General appearance: Healthy Skin: Normal. No atypical appearing moles on inspection of [...] CVA tenderness or inguinal adenopathy noted. Pelvic: Vagina and vulva are normal. Posterior cervix. Pap obtained and pending. Rectal exam: deferred Extremities: negative. COUNSELING: Reviewed preventive health counseling, as reflected in patient instructions folic acid supplement/ vitamin advised ATP III Guidelines ICSI Preventive Guidelines ASSESSMENT/PLAN: (Z01.411) Encounter for gynecological examination with abnormal finding (primary encounter diagnosis) Comment: Plan: ThinPrep Pap and HPV mRna E6/E7 ([facility]) (Z30.49) Encounter for surveillance of other contraceptive Comment: Plan: norethindrone-ethinyl estradiol-iron (MICROGESTIN FE1.530) 1.5-30 MG-MCG per tablet documented in this encounter Nursing Notes Vidhi Wilde CMA - 05/04/2017 5:30 PM CDT Yancy Clinton is here for a CPX. Non- asting: . Pre-visit Planning Immunizations -not up to date - Tdap Colonoscopy -NA Mammogram -NA Asthma test --NA PHQ2 -completed today ALCON 7 -NA Fall Risk Assessment -NA Vitals: BP Cuff left Arm with regular Cuff PULSE regular 140 lbs 6.4 oz and 5' 2.5 CLASSIFICATION OF OVERWEIGHT AND OBESITY BY BMI Obesity Class BMI(kg/m2) Underweight < 18.5 Normal 18.5-24.9 Overweight 25.0-29.9 OBESITY I 30.0-34.9 II 35.0-39.9 EXTREME OBESITY III >40 Patient's BMI Body mass index is 25.27 kg/(m^2). Http://hin.nhlbi.nih.gov/menuplanner/menu.cgi Tobacco Use: Questioned patient about current smoking habits. Pt. has never smoked. ETOH screening Questions: 1-How often do you have a drink containing alcohol? 4 times per month(s) 2-How many drinks containing alcohol do you have on a typical day when you are Drinking? 3 and 4 3- How often do you have 5 or more drinks on one occasion? NO Roomed By: DANILO Aviles ([facility]) documented in this encounter Plan of Treatment Not on filedocumented as of this encounter Procedures Procedure Name Priority Date/Time Associated Diagnosis Comme nts THINPREP PAP AND Routine 05/04/2017 6:41 PM Encounter for Resu lts for this HPV MRNA E6/E7 CDT gynecological procedure ar e in ([facility]) examination with the results abnormal finding section. documented in this encounter Results ThinPrep Pap and HPV mRna E6/E7 ([facility]) (05/04/2017 6:41 PM CDT) [facility] Method Time Signature Clinical None given [facility] LMP 50,917 [facility] Last Pap 61,217 [facility] Prev Bx Dx NONE GIVEN [facility] Source Cervix [facility] Statement of SEE COMMENT [facility] Comment: Satisfactory for evaluation. Endocervical/transformation zone compone nt absent. Descriptive Diagnosis SEE COMMENT [facility] Comment: Negative for intraepithelial le andres or malignancy. Supervisor [facility] Department: SEE COMMENT ELISA [facility] Comment: CBN, CT(ASCP) CT Screening location: [address] ??[address] Review Supervisor [facility] Department SEE COMMENT [facility] Comment: JJO, CT(ASCP) CT Screening location: [facility] [address] [place], [place] ??[address] HPV mRNA E6/E7 Not Detected Not Detected [facility] Comment: This test was performed using the APTIMA HPV Assay ([employer] ? This assay detects E6/E7 viral messenger RNA (mRNA) from 14 high-risk HPV types (16,18,31,33,35,39,4 5,51,52,56,58,59,66,68). Specimen Anatomical Collection Method Collection Time Receive d Time (Source) Location / / Volume Laterality Cervical swab 05/04/2017 6:41 PM 05/06/20 17 3:44 (specimen) CDT AM CDT Resulting Agency Comment Performing Organization Information: ? [place] ? [facility] [address] [place], [place] [address] ? Josh Blank M.D. Marisela Brito MD LAB - NON-BEAKER NON-BLOOD Performing Organization Address City/State/ZIP Code Phon e Number [facility] [address] [place], [place] [address] [facility] [address] [place], [place] [address] documented in this encounter Visit Diagnoses Diagnosis Encounter for gynecological examination with abnormal finding - Primary Routine gynecological examination Encounter for surveillance of other cont raceptive documented in this encounter Care Teams Core Manager Relationship Specialty Start Date End Date Marisela Brito MD PCP - General 12/10/9905/03 Marisela Brito MD Assigned PCP 06/10/15 documented as of this encounter
--- OUTSIDE RECORDS SUMMARY | 2022-10-10 23:52 | XMS_ITS | Encounter Summary ---
:1995 Author Organization [place] Address [address] [facility] [place] [address] Care Team Providers Name Role Phone Marisela Brito MD Unavailable Unavailable Leda Gandhi Primary Care Provider [phone] Reason for Visit Reason Onset Date Comments Referral 05/14/2020 Encounter Details Date Type Department Care Team Description 05/14/2020 Telephone [facility] Karen Garza , Referral Physicians STEVE [address] [address] [place] [address] [address] [place] [address] [place] [address] [phone] Social History Tobacco Use Types Packs/Day Years [...] / COVID-19? documented as of this encounter Miscellaneous Notes Telephone Encounter - Divine Hurt - 05/15/2020 10:27 AM CDT Noted - Thank you Telephone Encounter - Marissa Watts CMA - 05/14/2020 9:41 AM CDT Pt called to notify you she is scheduled with [facility] for 06/05/20. documented in this encounter Plan of Treatment Not on filedocumented as of this encounter Visit Diagnoses Not on filedocumented in this encounter Care Teams Associate Chemist Relationship Specialty Start Date End Date Leda Gandhi PA PCP - General Family Practice 05/04/20 02/27/21 [address] [address] Marisela Brito MD Assigned PCP 06/10/15 documented as of this encounter
--- OUTSIDE RECORDS SUMMARY | 2022-10-10 23:52 | XMS_ITS | Encounter Summary ---
:1995 Author Organization [place] Address [address] [facility] [place] [address] Care Team Providers Name Role Phone Marisela Brito MD Primary Care Provider Unavailable Marisela Brito MD Unavailable Unavailable Encounter Details Date Type Department Care Team Description 10/17/2019 Travel Social History Tobacco Use Types Packs/Day [...] on filedocumented in this encounter Care Teams Seafood Process Worker Relationship Specialty Start Date End Date Marisela Brito MD PCP - General 12/10/9905/03 Marisela Brito MD Assigned PCP 06/10/15 documented as of this encounter
--- OUTSIDE RECORDS SUMMARY | 2022-10-10 23:52 | XMS_ITS | Encounter Summary ---
:1995 Author Organization [place] Address [address] [facility] [place] [address] Care Team Providers Name Role Phone Marisela Brito MD Primary Care Provider Unavailable Marisela Brito MD Unavailable Unavailable Reason for Visit Reason Onset Date Comments Refill Request 03/11/2016 Encounter Details Date Type Department Care Team Description 03/11/2016 Refill [facility] ysicians Marisela Brito MD Refill Request [address] [place] [address] [address] [place] [address] Social History Tobacco Use Types Packs/Day Years Used Date Smoking Tobacco: Never Smokeless Tobacco: Never Alcohol Use Standard Drinks/Week Comments No 0 (1 standard drink = 0.6 oz pure alcoho l) Sex Assigned at Date Recorded Not on file documented as of this encounter Miscellaneous Notes Telephone Encounter - Judith Lorenzo MA - 03/11/2016 3:36 PM CDT Pt has upcoming appt in March, she is needing refill before then. Pending Prescriptions: Disp Refills norethindrone-ethinyl estradiol-iron (GREGORIO*84 tab*0 Sig: Take 1 tablet by mouth daily documented in this encounter Plan of Treatment Not on filedocumented as of this encounter Visit Diagnoses Diagnosis Encounter for surveillance of other cont raceptive - Primary documented in this encounter Care Teams Accounts Receivable Assistant Relationship Specialty Start Date End Date Marisela Brito MD PCP - General 12/10/9905/03 Marisela Brito MD Assigned PCP 06/10/15 documented as of this encounter
--- OUTSIDE RECORDS SUMMARY | 2022-10-10 23:52 | XMS_ITS | Encounter Summary ---
:1995 Author Organization [place] Address [address] [facility] [place] [address] Care Team Providers Name Role Phone Marisela Brito MD Unavailable Unavailable Leda Gandhi Primary Care Provider [phone] Encounter Details Date Type Department Care Team Description 05/09/2020 Travel Social History Tobacco Use Types Packs/Day [...] on filedocumented in this encounter Care Teams Corn Popper Relationship Specialty Start Date End Date Leda Gandhi PA PCP - General Family Practice 05/04/20 02/27/[address], [facility] [address] [place] [address] Marisela Brito MD Assigned PCP 06/10/15 documented as of this encounter
--- OUTSIDE RECORDS SUMMARY | 2022-10-10 23:52 | XMS_ITS | Encounter Summary ---
:1995 Author Organization [place] Address [address] [facility] [place] [address] Care Team Providers Name Role Phone Marisela Brito MD Primary Care Provider Unavailable Reason for Visit Reason Comments Urinary Problem Encounter Details Date Type Department Care Team Description 04/26/2015 Office Visit [facility] Jabier Subramanian Acute cy stitis (Primary Dx); Physicians MD Matthew Dysuria; [address] [facility] [address] ABHIJE[address] Thakkar Recurrent cold sores [address] [place], [place] [address] [phone] Social History Tobacco Use Types Packs/Day Years Used Date Smoking Tobacco: Never Smokeless Tobacco: Never Alcohol Use Standard Drinks/Week Comments No 0 (1 standard drink = 0.6 oz pure alcoho l) Sex Assigned at Date Recorded Not on file documented as of this encounter Last Filed Vital Signs Vital Sign Reading Time Taken Comments Blood Pressure 110/70 04/26/2015 4:35 PM CDT Pulse 68 04/26/2015 4:35 PM CDT Temperature 36.7 ??C (98.1 ??F) 04/26/2015 4:35 PM CDT Respiratory Rate - - Oxygen Saturation 99% 04/26/2015 4:35 PM CDT Inhaled Oxygen Concentration - - Weight 58.1 kg (128 lb) 04/26/2015 4:35 PM CDT Height 158.1 cm (5' 2.25) 04/26/2015 4:35 PM CDT Body Mass Index 23.22 04/26/2015 4:35 PM CDT documented in this encounter Progress Notes Jabier Subramanian MD - 04/26/2015 5:05 PM CDT CC: Urinary symptoms HPI: Duration;since 04/24/2015 night Urgency:yes Frequency:yes Dysuria:yes Hematuria:yes Discharge:spoting with blood Fevers:no Chills:no Flank pain:no Abdominal pain:no Frequent UTIs:no Nausea & vomiting;no She states that her LMP is 04/22/2015 PMH, MEDS, SOCIAL, FAMILY histories in EPIC reviewed Examination: BP 110/70 mmHg Pulse 68 Temp(Src) 98.1 ??F (36.7 ??C) (Oral) Ht 1.581 m (5' 2.25) Wt 58.06 kg (128 lb) BMI 23.23 kg/m2 SpO2 99% LMP 03/25/2015 Alert, oriented to time place and person Obesity:no No jaundice. no pallor. S1S2 no m/g/r Lungs;CTAB Abdomen: mild suprapubic tenderness. no CVA tenderness Speech and gait both normal. A/P ICD-9-CM 1. Acute cystitis 595.0 ciprofloxacin (CIPRO) 250 MG tablet phenazopyridine (PYRIDIUM) 100 MG tablet 2. Dysuria 788.1 HCL Urinalysis, Routine ([facility]) 3. Recurrent cold sores 054.9 penciclovir (DENAVIR) 1 % cream Discussion: Push fluids OTC pyridium prn: warned turns urine orange yoghurt with life culture/probiotics while on abx: rationale discussed Abx sometimes lead to yeast infection: notify us if that happens: solution: Will call in diflucan 150 mg x1 dose. She asked something for recurrent cold sores F/U prn Jabier Subramanian MD Internal Medicine [facility] Physicians documented in this encounter Nursing Notes Denise Huff - 04/26/2015 4:35 PM CDT Patient is here for a possible UTI. The sx's started on Thursday evening. Pre-Visit Screening : Immunizations : up to date Asthma Action Plan/Test : na PHQ9/GAD7 : na BP done on the left arm, with a med sized cuff. Pulse - regular My Chart - accepts CLASSIFICATION OF OVERWEIGHT AND OBESITY BY BMI Obesity Class BMI(kg/m2) Underweight < 18.5 Normal 18.5-24.9 Overweight 25.0-29.9 OBESITY I 30.0-34.9 II 35.0-39.9 EXTREME OBESITY III >40 Patient's BMI Body mass index is 23.23 kg/(m^2). http://hin.nhlbi.nih.gov/menuplanner/menu.cgi Questioned patient about current smoking habits. Pt. has never smoked. documented in this encounter Plan of Treatment Not on filedocumented as of this encounter Procedures Procedure Name Priority Date/Time Associated Diagnosis Comme nts HCL URINALYSIS, Routine 04/26/2015 4:44 PM Dysuria Result s for this ROUTINE CDT procedure are i n the results section. documented in this encounter Results (ABNORMAL) HCL Urinalysis, Routine ([facility]) (04/26/2015 4:44 PM CDT) [facility] Method Time Signature Color Urine Yellow [facility] Appearance Urine Cloudy [facility] Glucose Urine Neg neg mg/dL [facility] Bilirubin Urine Neg neg [facility] Ketones Urine Neg neg mg/dL [facility] Specific [place] 1.010 [facility] Blood Urine Large (A) neg [facility] pH Urine 7.0 5.0 - 7.0 [facility] pH Albumin Urine 30 (A) neg - neg [facility] mg/dL Urobilinogen 0.2 0.2 - 1.0 [facility] Urine EU/dL Nitrite Urine Neg NEG [facility] Leukocyte mod (A) neg - neg [facility] Esterase Wbc, Urine Micro tntc (A) neg - 2 [facility] RBC Micro Urine 10-15 (A) neg - 2 [facility] EP/HPF occ [facility] Bacteria Urine small (A) neg - neg [facility] Casts/LPF neg [facility] Miscellaneous neg [facility] Specimen (Source) Anatomical Collection Method Collection Time Re ceived Time Location / / Volume Laterality 04/26/2015 4:44 PM CDT [place] Matthew Subramanian MD LABORATORY Performing Organization Address City/State/ZIP Code Phon e Number [facility] documented in this encounter Visit Diagnoses Diagnosis Acute cystitis - Primary Dysuria Recurrent cold sores Herpes simplex without mention of compli cation documented in this encounter Care Teams Mental Health Professional Relationship Specialty Start Date End Date Marisela Brito MD PCP - General 12/10/9905/03 documented as of this encounter
--- OUTSIDE RECORDS SUMMARY | 2022-10-10 23:52 | XMS_ITS | Encounter Summary ---
:1995 Author Organization [place] Address [address] [facility] [place] [address] Care Team Providers Name Role Phone Marisela Brito MD Primary Care Provider Unavailable Marisela Brito MD Unavailable Unavailable Reason for Visit Reason Onset Date Comments Pt. Information/instruction 01/21/2016 Encounter Details Date Type Department Care Team Description 01/21/2016 Telephone [facility] Marisela Brito Pt. Physicians Information/instruction [address] [place] [address] Social History Tobacco Use Types Packs/Day Years Used Date Smoking Tobacco: Never Smokeless Tobacco: Never Alcohol Use Standard Drinks/Week Comments No 0 (1 standard drink = 0.6 oz pure alcoho l) Sex Assigned at Date Recorded Not on file documented as of this encounter Miscellaneous Notes Telephone Encounter - Judith Lorenzo MA - 01/21/2016 3:08 PM CST LM for pt to call back with Renetta jane SPERSON NECKTIES Telephone Encounter - Marisela Brito MD - 01/21/2016 2:18 PM CST Call Yancy to see how she is feeling- seen with sore throat on Thursday [employer]ERSON NECKT[employer] documented in this encounter Plan of Treatment Not on filedocumented as of this encounter Visit Diagnoses Not on filedocumented in this encounter Care Teams Water Filterer Helper Relationship Specialty Start Date End Date Marisela Brito MD PCP - General 12/10/9905/03 Marisela Brito MD Assigned PCP 06/10/15 documented as of this encounter
--- OUTSIDE RECORDS SUMMARY | 2022-10-10 23:52 | XMS_ITS | Encounter Summary ---
:1995 Author Organization [place] Address [address] [facility] [place] [address] Care Team Providers Name Role Phone Marisela Brito MD Primary Care Provider Unavailable Marisela Brito MD Unavailable Unavailable Reason for Visit Reason Comments Physical Encounter Details Date Type Department Care Team Description 04/07/2016 Office Visit [facility] Marisela Brito for gynecological examination without abnormal finding (Primary Dx); Zack Olivera MD Papanicolaou smear of cervix with atypical squamous cells of undetermined significance (ASC-US); [address] Encounter for surveillance o f other contraceptive; [address] Herpes simplex virus infecti on; [place], [place] Need for vacc ine for TD (tetanus-diphtheria); [id number] ACP (advance care planning) [phone] Social History Tobacco Use Types Packs/Day Years Used Date Smoking Tobacco: Never Smokeless Tobacco: Never Alcohol Use Standard Drinks/Week Comments No 0 (1 standard drink = 0.6 oz pure alcoho l) Sex Assigned at Date Recorded Not on file documented as of this encounter Last Filed Vital Signs Vital Sign Reading Time Taken Comments Blood Pressure 132/80 04/07/2016 11:26 AM CDT Pulse 92 04/07/2016 11:26 AM CDT Temperature - - Respiratory Rate - - Oxygen Saturation - - Inhaled Oxygen Concentration - - Weight 66.5 kg (146 lb 9.6 oz) 04/07/2016 11:26 AM CDT Height 158.8 cm (5' 2.5) 04/07/2016 11:26 AM CDT Body Mass Index 26.39 04/07/2016 11:26 AM CDT documented in this encounter Progress Notes Marisela Brito MD - 04/06/2016 9:45 PM CDT SUBJECTIVE: 21 year old female presents for pap smear: one year ago ASCUS with pos HPV Pap 2014-LSIL HPV: vaccine completed STD screen: Declines- same sexual partner for years- chlamydia screen two years ago- Patient Active Problem List Diagnosis ??? Health Longterm ??? ACP (advance care planning) ??? High risk HPV infection Past Surgical History Procedure Laterality Date ??? Dental surgery Family History Problem Relation Age of Onset ??? Alzheimer Disease No family hx of ??? Diabetes No family hx of ??? Cancer Paternal Grandfather ??? Heart Disease No family hx of Current Outpatient Prescriptions Medication ??? norethindrone-ethinyl estradiol-iron (MICROGESTIN ) 1.5-30 MG-MCG per tablet ??? penciclovir (DENAVIR) 1 % cream ??? triamcinolone (KENALOG) 0.1 % cream No current facility-administered medications for this visit. 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 No atypical appearing [...] noted. Pelvic: Vagina and vulva are normal. No palpable uterine or adnexal masses or tenderness. Pap obtained and pending. Rectal exam: deferred Extremities: negative. Assessment (Z01.419) Encounter for gynecological examination without abnormal finding (primary encounter diagnosis) Comment: Plan: ThinPrep Pap and HPV (mRNa E6/E7) ([facility]), HEMOGRAM/PLATELET ([facility]), VENOUS COLLECTION (R87.610) Papanicolaou smear of cervix with atypical squamous cells of undetermined significance (ASC-US) Comment: Plan: ThinPrep Pap and HPV (mRNa E6/E7) ([facility]) (Z30.49) Encounter for surveillance of other contraceptive Comment: Plan: ThinPrep Pap and HPV (mRNa E6/E7) ([facility]), norethindrone-ethinyl estradiol-iron (MICROGESTIN FE1.5/30) 1.5-30 MG-MCG per tablet (B00.9) Herpes simplex virus infection Comment: Plan: valACYclovir (VALTREX) 1000 mg tablet (Z23) Need for vaccine for TD (tetanus-diphtheria) Comment: Plan: TD (ADULT, 7+) PRESERVE FREE, VACCINE ADMINISTRATION, INITIAL (Z71.89) ACP (advance care planning) Comment: Plan: documented in this encounter Nursing Notes Judith Lorenzo MA - 04/07/2016 11:27 AM CDT 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 Pre-visit planning discussed: Immunizations - td today Mammogram - na Colonoscopy - na Asthma - na PHQ9/ALCON - na Fall Risk - na Questioned patient about current smoking habits. Pt. has never smoked. Body mass index is 26.37 kg/(m^2). BP Cuff right Arm reg Cuff PULSE regular My Chart: accepts ETOH screening: Questions: 1-How often do you have a drink containing alcohol? 2 times per week(s) 2-How many drinks containing alcohol do you have on a typical day when you are Drinking? 1 and 2 3- How often do you have 5 or more drinks on one occasion? 0 per years Have you ever: @None of the patient's responses to the CAGE screening were positive / Negative CAGE score@ documented in this encounter Plan of Treatment Not on filedocumented as of this encounter Procedures Procedure Name Priority Date/Time Associated Diagnosis Comme nts HC VENOUS Routine 04/08/2016 7:34 AM Encounter for COLLECTION CDT gynecological examination without abnormal finding THINPREP PAP AND Routine 04/07/2016 12:26 Papanicolaou smear o f Results for this HPV MRNA E6/E7 PM CDT cervix with atypical proce dure are in ([facility]) squamous cells of the result s undetermined section. significance ( C-US) Encounter for surveillance of other contraceptive Encounter for gynecological examination without abnormal finding ZZCL AFF Routine 04/07/2016 12:25 Encounter for Results fo r this HEMOGRAM/PLATELET PM CDT gynecological procedure are in examination without the resu lts abnormal finding section. documented in this encounter Results ThinPrep Pap and HPV (mRNa E6/E7) {HPV always run}(Yunzhisheng) (04/07/2016 12:26 PM CDT) [facility] Method Time Signature Clinical SEE COMMENT [facility] Comment: SCREENING THIN LAYER PARA 0 LMP 41,716 [facility] Last Pap Diagnosis 52,115 [facility] Prev Bx Dx NONE GIVEN [facility] Source Cervix [facility] Statement of Adequacy SEE COMMENT [facility] Comment: Satisfactory for evaluation. Endocervical/transformation zone compone nt absent. Descriptive Diagnosis SEE COMMENT [facility] Comment: Negative for intraepithelial le andres or malignancy. Retail Grocer: SEE COMMENT [facility] Comment: SZS, CT(ASCP) CT Screening location: [address] ??[address] Review Retail Grocer SEE COMMENT [facility] Comment: EJM, CT(ASCP) CT Screening location: [facility] [address] [place], [place] ??[address] HPV mRNA E6/E7 Not Detected Not Detected [facility] Comment: This test was performed using the APTIMA HPV Assay ([employer] ? This assay detects E6/E7 viral messenger RNA (mRNA) from 14 high-risk HPV types (16,18,31,33,35,39,4 5,51,52,56,58,59,66,68). Specimen Anatomical Collection Method Collection Time Receive d Time (Source) Location / / Volume Laterality Cervical swab 04/07/2016 12:26 04/08/2016 4:57 (specimen) PM CDT AM CDT Resulting Agency Comment Performing Organization Information: ? [place] ? [facility] ? [address] [place], [place] [address] ? Josh Blank M.D. Marisela Brito MD LAB - NON-BEAKER NON-BLOOD Performing Organization Address City/State/ZIP Code Phon e Number [facility] [address] [place], [place] [address] [employer] [address] [place], [place] [address] HEMOGRAM/PLATELET ([facility]) (04/07/2016 12:25 PM CDT) P athologist Signature WBC 9.1 4.0 - 11 [facility] 10*9/L RBC Count 4.22 3.8 - 5.2 [facility] 10*12/L Hemoglobin 13.9 11.7 - 15.7 [facility] g/dL Hematocrit 41.0 35.0 - 47.0 [facility] % MCV 97.1 78 - 100 fL [facility] MCH 32.9 26 - 33 pg [facility] MCHC 33.9 31 - 36 [facility] g/dL RDW 11.8 % [facility] Platelet Count 358 150 - 375 [facility] 10^9/L Specimen (Source) Anatomical Collection Method Collection Time Re ceived Time Location / / Volume Laterality 04/07/2016 12:25 PM CDT Marisela Brito MD LABORATORY Performing Organization Address City/State/ZIP Code Phon e Number [facility] documented in this encounter Visit Diagnoses Diagnosis Encounter for gynecological examination without abnormal finding - Primary Routine gynecological examination Papanicolaou smear of cervix with atypic al squamous cells of undetermined significance (ASC-US) Encounter for surveillance of other cont raceptive Herpes simplex virus infection Herpes simplex without mention of compli cation Need for vaccine for Td (tetanus-diphthe cachorro) Need for prophylactic vaccination with t etanus-diphtheria (Td) ACP (advance care planning) Other specified counseling documented in this encounter Care Teams Chocolate Temperer Relationship Specialty Start Date End Date Marisela Brito MD PCP - General 12/10/9905/03 Marisela Brito MD Assigned PCP 06/10/15 documented as of this encounter
--- OUTSIDE RECORDS SUMMARY | 2022-10-10 23:52 | XMS_ITS | Encounter Summary ---
:1995 Author Organization [place] Address [address] [facility] [place] [address] Care Team Providers Name Role Phone Marisela Brito MD Primary Care Provider Unavailable Marisela Brito MD Unavailable Unavailable Reason for Visit Reason Comments Medication Refill Encounter Details Date Type Department Care Team Description 08/02/2019 Refill [facility] Marisela Brito MD Medication Refill Physicians [address] [place] [address] [address] [place] [address] Social History Tobacco Use Types Packs/Day Years Used Date Smoking Tobacco: Never Smokeless Tobacco: Never Alcohol Use Standard Drinks/Week Comments No 0 (1 standard drink = 0.6 oz pure alcoho l) Sex Assigned at Date Recorded Not on file documented as of this encounter Miscellaneous Notes Telephone Encounter - Linda Kimble MA - 08/02/2019 11:01 AM CDT Refused Prescriptions: Disp Refills RADHA FE 1.5-30 MG-MCG tablet [Phar*84 tab*1 Sig: TAKE ONE TABLET BY MOUTH EVERY DAY Refused By: LINDA KIMBLE I Reason for Refusal: Patient needs appointment Mail order denied Due for a FASTING yearly CPX Last px was 09-02-2018 Called in [facility] [place] 28 days Sent my chart message Linda [phone] (home) documented in this encounter Plan of Treatment Not on filedocumented as of this encounter Visit Diagnoses Diagnosis Encounter for surveillance of other cont raceptive documented in this encounter Care Teams Protective Services Social Worker Relationship Specialty Start Date End Date Marisela Brito MD PCP - General 12/10/9905/03 Marisela Brito MD Assigned PCP 06/10/15 documented as of this encounter
--- OUTSIDE RECORDS SUMMARY | 2022-10-10 23:52 | XMS_ITS | Encounter Summary ---
:1995 Author Organization [place] Address [address] [facility] [place] [address] Care Team Providers Name Role Phone Marisela Brito MD Primary Care Provider Unavailable Marisela Brito MD Unavailable Unavailable Reason for Visit Reason Comments Pharyngitis Generalized Body Aches Chills Encounter Details Date Type Department Care Team Description 01/18/2016 Office Visit [facility] Marisela Brito Acute pharyngitis due Zack Olivera MD to other specified [address] organisms (Primary Dx) [address] [place] [address] Social History Tobacco Use Types Packs/Day Years Used Date Smoking Tobacco: Never Smokeless Tobacco: Never Alcohol Use Standard Drinks/Week Comments No 0 (1 standard drink = 0.6 oz pure alcoho l) Sex Assigned at Date Recorded Not on file documented as of this encounter Last Filed Vital Signs Vital Sign Reading Time Taken Comments Blood Pressure 118/69 01/18/2016 10:28 AM HUMAN RESOURCES SUPERVISOR Pulse 90 01/18/2016 10:28 AM HUMAN RESOURCES SUPERVISOR Temperature 36.6 ??C (97.9 ??F) 01/18/2016 10:28 AM HUMAN RESOURCES SUPERVISOR Respiratory Rate - - Oxygen Saturation - - Inhaled Oxygen Concentration - - Weight 64 kg (141 lb 3.2 oz) 01/18/2016 10:28 AM HUMAN RESOURCES SUPERVISOR Height 158.8 cm (5' 2.5) 01/18/2016 10:28 AM HUMAN RESOURCES SUPERVISOR Body Mass Index 25.41 01/18/2016 10:28 AM HUMAN RESOURCES SUPERVISOR documented in this encounter Progress Notes Marisela Brito MD - 01/18/2016 10:42 AM CST SUBJECTIVE: 21 year old female, presents with the following concern Feels tired, starting two days ago on her birthday Last night, tired, woke up with headache, sore throat, and body aches Sore throat limited to left side- complains of tender lymph node on left History of tonsillitis- sore throats- she has not had mono 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 Health Fdc ??? Advanced directives, counseling/discussion Past Surgical History Procedure Laterality Date ??? Dental surgery Current Outpatient Prescriptions Medication ??? norethindrone-ethinyl estradiol-iron (MICROGESTIN ) 1.5-30 MG-MCG tablet ??? penciclovir (DENAVIR) 1 % cream ??? triamcinolone (KENALOG) 0.1 % cream No current facility-administered medications for this visit. OBJECTIVE: BP 118/69 mmHg Pulse 90 Temp(Src) 97.9 ??F (36.6 ??C) (Oral) Ht 1.588 m (5' 2.5) Wt 64.048 kg (141 lb 3.2 oz) BMI 25.40 kg/m2 LMP 01/18/2015 No acute distress External ears and canals clear bilaterally. TM's normal bilaterally. Nose normal without lesions or discharge. Oropharynx: erythema posterior pharynx- no tonsillar hypertrophy or exudate. Neck supple without palpable adenopathy. Chest is clear Assessment Acute pharyngitis- ?? 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 Pre-visit planning discussed: Immunizations - up to date Asthma - na PHQ9/ALCON - na Fall Risk - na Questioned patient about current smoking habits. Pt. has never smoked. Body mass index is 25.4 kg/(m^2). BP Cuff right Arm reg Cuff, omron PULSE regular My Chart: accepts N RESOURCES SUPERVISOR documented in this encounter Plan of Treatment Not on filedocumented as of this encounter Procedures Procedure Name Priority Date/Time Associated Diagnosis Comme nts THROAT CULTURE Routine 01/18/2016 10:42 AM Acute pharyngitis R esults for this AEROBIC BACTERIAL HUMAN RESOURCES SUPERVISOR due to other procedure are in specified organisms the resu lts section. RAPID STREP SCREEN Routine 01/18/2016 10:41 AM Acute pharyngit is Results for this THROAT SWAB HUMAN RESOURCES SUPERVISOR due to other procedure are i n specified organisms the resu lts section. documented in this encounter Results THROAT CULTURE ([facility]) (01/18/2016 10:42 AM HUMAN RESOURCES SUPERVISOR) P athologist Signature Throat Culture NEG [facility] INTERNAL Specimen (Source) Anatomical Collection Method Collection Time Re ceived Time Location / / Volume Laterality Specimen from 01/18/2016 10:42 throat (specimen) AM HUMAN RESOURCES SUPERVISOR Marisela Brito MD LAB - MICRO GENERAL ORDERABL ES Performing Organization Address City/State/ZIP Code Phon e Number [facility] RAPID STREP ([facility]) (01/18/2016 10:41 AM HUMAN RESOURCES SUPERVISOR) P athologist Signature Rapid Strep A NEG neg [facility] INTER[facility] Screen Specimen (Source) Anatomical Collection Method Collection Time Re ceived Time Location / / Volume Laterality Specimen from 01/18/2016 10:41 throat (specimen) AM HUMAN RESOURCES SUPERVISOR Marisela Brito MD LAB - MICRO GENERAL ORDERABL ES Performing Organization Address City/State/ZIP Code Phon e Number [facility] documented in this encounter Visit Diagnoses Diagnosis Acute pharyngitis due to other specified organisms - Primary documented in this encounter Care Teams Program Facilitator Relationship Specialty Start Date End Date Marisela Brito MD PCP - General 12/10/9905/03 Marisela Brito MD Assigned PCP 06/10/15 documented as of this encounter
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
--- OUTSIDE RECORDS SUMMARY | 2022-10-10 23:52 | XMS_ITS | Encounter Summary ---
:1995 Author Organization [place] Address [address] [facility] [place] [address] Care Team Providers Name Role Phone Marisela Brito MD Primary Care Provider Unavailable Marisela Brito MD Unavailable Unavailable Reason for Visit Reason Onset Date Comments Refill Request 03/22/2019 Encounter Details Date Type Department Care Team Description 03/22/2019 MyC Refill [facility] Marisela Brito MD Refill Request Physicians [address] [place] [address] Social History Tobacco Use Types Packs/Day Years Used Date Smoking Tobacco: Never Smokeless Tobacco: Never Alcohol Use Standard Drinks/Week Comments No 0 (1 standard drink = 0.6 oz pure alcoho l) Sex Assigned at Date Recorded Not on file documented as of this encounter Miscellaneous Notes Telephone Encounter - Grace Colbert CMA - 03/22/2019 2:44 PM CDT Yancy Raviyd is requesting a refill of: Pending Prescriptions: Disp Refills norethindrone-ethinyl estradiol-iron (GREGORIO*84 tab*1 Sig: Take 1 tablet by mouth daily Pt needs Rx sent to new pharmacy Grace Martinez documented in this encounter Plan of Treatment Not on filedocumented as of this encounter Visit Diagnoses Diagnosis Encounter for surveillance of other cont raceptive documented in this encounter Care Teams Bailer Operators Supervisor Relationship Specialty Start Date End Date Marisela Brito MD PCP - General 12/10/9905/03 Marisela Brito MD Assigned PCP 06/10/15 documented as of this encounter
--- OUTSIDE RECORDS SUMMARY | 2022-10-10 23:52 | XMS_ITS | Encounter Summary ---
:1995 Author Organization [place] Address [address] [facility] [place] [address] Care Team Providers Name Role Phone Marisela Brito MD Primary Care Provider Unavailable Marisela Brito MD Unavailable Unavailable Encounter Details Date Type Department Care Team Description 05/19/2016 Telephone [facility] ysicians Marisela Brito MD [address] [place] [address] [address] [place] [address] Social History Tobacco Use [...] on filedocumented in this encounter Care Teams Roofing Applicator Relationship Specialty Start Date End Date Marisela Brito MD PCP - General 12/10/9905/03 Marisela Brito MD Assigned PCP 06/10/15 documented as of this encounter
--- OUTSIDE RECORDS SUMMARY | 2022-10-10 23:52 | XMS_ITS | Encounter Summary ---
:1995 Author Organization [place] Address [address] [facility] [place] [address] Care Team Providers Name Role Phone Marisela Brito MD Primary Care Provider Unavailable Reason for Visit Reason Comments Lab Only Encounter Details Date Type Department Care Team Description 05/03/2015 Orders Only [facility] Leda Gandhi UTI (u rinary tract Physicians COREY Haines infection) [address] , [address] [address] [phone] Social History Tobacco Use Types Packs/Day Years Used Date Smoking Tobacco: Never Smokeless Tobacco: Never Alcohol Use Standard Drinks/Week Comments No 0 (1 standard drink = 0.6 oz pure alcoho l) Sex Assigned at Date Recorded Not on file documented as of this encounter Nursing Notes Antonette Brady CMA - 05/03/2015 3:38 PM CDT Yancy Clinton is here to leave a urine for UC documented in this encounter Plan of Treatment Not on filedocumented as of this encounter Procedures Procedure Name Priority Date/Time Associated Diagnosis Comme nts URINE CULTURE Routine 05/03/2015 3:42 PM UTI (urinary tract Re sults for this CDT infection) procedure are i n the results section . documented in this encounter Results Urine Culture Aerobic Bacterial (05/03/2015 3:42 PM CDT) [facility] Method Time Signature Urine Voided SEE COMMENT [facility] Comment: ??CULTURE, URINE, ROUTINE ?MICRO NUMBER: ?[id number] ??TEST STATUS: ? FINAL ??SPECIMEN SOURCE: ?? URINE ??SPECIMEN QUALITY: ??ADEQUATE ??RESULT: ?No Growth Specimen Anatomical Collection Method Collection Time Receive d Time (Source) Location / / Volume Laterality Urine specimen 05/03/2015 3:42 PM 015 5:44 (specimen) CDT AM CDT Resulting Agency Comment Performing Organization Information: ? [place] ? [facility] ? [address] [place], [place] [address] ? Josh Blank M.D. Leda NICOLE LAB - MICRO GENERAL ORDER TRACY Performing Organization Address City/State/ZIP Code Phon e Number [facility] [address] [place], [place] [address] [facility] [address] [place], [place] [address] documented in this encounter Visit Diagnoses Diagnosis UTI (urinary tract infection) Urinary tract infection, site not specif ied documented in this encounter Care Teams Buyer Relationship Specialty Start Date End Date Marisela Brito MD PCP - General 12/10/9905/03 documented as of this encounter
--- OUTSIDE RECORDS SUMMARY | 2022-10-10 23:53 | XMS_ITS | Encounter Summary ---
:1995 Author Organization [place] Address [address] [facility] [place] [address] Care Team Providers Name Role Phone Marisela Brito MD Primary Care Provider Unavailable Reason for Visit Reason Comments Derm Problem Encounter Details Date Type Department Care Team Description 02/08/2009 Office Visit [facility] Dunia Combs, Other Specified Physicians Disease of Hair and [address] Follic[address] (Primary Dx) [place] [address] Social History Tobacco Use Types Packs/Day Years Used Date Smoking Tobacco: Never Alcohol Use Standard Drinks/Week Comments No 0 (1 standard drink = 0.6 oz pure alcoho l) Sex Assigned at Date Recorded Not on file documented as of this encounter Last Filed Vital Signs Vital Sign Reading Time Taken Comments Blood Pressure 114/66 02/08/2009 6:45 PM CDT Pulse 96 02/08/2009 6:45 PM CDT Temperature 36.7 ??C (98.1 ??F) 02/08/2009 6:45 PM CDT Respiratory Rate - - Oxygen Saturation - - Inhaled Oxygen Concentration - - Weight 56.2 kg (124 lb) 02/08/2009 6:45 PM CDT Height 156.2 cm (5' 1.5) 02/08/2009 6:45 PM CDT Body Mass Index 23.05 02/08/2009 6:45 PM CDT Body Mass Index Percentile 83.50 % 02/08/2009 6:45 PM CD T Growth Chart: [facility] (Girls, 2-20 Years) documented in this encounter Progress Notes Dunia Spring MD - 02/09/2009 3:23 PM CDT 704.8 Other Specified Disease of Hair and Hair Follicles (primary encounter diagnosis) Comment: Pt here with red bumps on back of right upper thigh, somehwat on lower buttox and now on lower leg. Some yellow crusty scabs on top of open small bumps. Pt says they are very itchy. Denies new environmental exposures. No recent injury. Was in hot tub last weeknd and they started next day but others in family also in there. Shaves over bumps and thinks after shaving she started getting some on lwoer leg. OBJECTIVE: Blood pressure 114/66, pulse 96, temperature 98.1 ??F (36.7 ??C), height 5' 1.5 (1.562 m), weight 124 lb (56.246 kg). gen: pt pleasant, nad Skin: pt with 20-25 scatterd open superifical excoriations on lower buttox/upper thigh on left and afew small papuels on left lower leg, lot so yellow crusty dry tissue on top of open lesions Plan: BACTRIM DS 800-160 MG OR TABS, BACTRIM DS 800-160 MG OR TABS Folliculitis most likely ? Hot tub folliculitis/staph like impetigo will try anbx Pt to return to clinic if sx's worsen or not better. documented in this encounter Nursing Notes 02/08/2009 6:45 PM CDT >> SHEILA MAGALLANES Radha Feb 08, 2009 6:49 PM Pt here for rash on left buttox and spreading to left lower leg. Used regular BP Cuff on pts left arm. Pts Pulse was regular. Pt was offered to sign up for My Chart and pt declines. Questioned patient about current smoking habits. Pt. no exposure to second hand smoke. CLASSIFICATION OF OVERWEIGHT AND OBESITY BY BMI Obesity Class BMI(kg/m2) Underweight < 18.5 Normal 18.5-24.9 Overweight 25.0-29.9 OBESITY I 30.0-34.9 II 35.0-39.9 EXTREME OBESITY III >40 Patient's BMI Body mass index is 23.05 kg/(m^2). Http://hin.nhlbi.nih.gov/menuplanner/menu.cgi documented in this encounter Plan of Treatment Not on filedocumented as of this encounter Visit Diagnoses Diagnosis Other specified disease of hair and hair follicles - Primary documented in this encounter Care Teams High [address] Justice Relationship Specialty Start Date End Date Marisela Brito MD PCP - General 12/10/9905/03 documented as of this encounter
--- OUTSIDE RECORDS SUMMARY | 2022-10-10 23:53 | XMS_ITS | Encounter Summary ---
:1995 Author Organization [place] Address [address] [facility] [place] [address] Care Team Providers Name Role Phone Marisela Brito MD Primary Care Provider Unavailable Reason for Visit Reason Comments Well Child Encounter Details Date Type Department Care Team Description 02/11/2012 Office Visit [facility] Marisela Brito or child health check (Primary Dx); Zack Olivera MD Other general counseling and advice for contraceptive management [address] [place] [address] Social History Tobacco Use Types Packs/Day Years Used Date Smoking Tobacco: Never Smokeless Tobacco: Never Alcohol Use Standard Drinks/Week Comments No 0 (1 standard drink = 0.6 oz pure alcoho l) Sex Assigned at Date Recorded Not on file documented as of this encounter Last Filed Vital Signs Vital Sign Reading Time Taken Comments Blood Pressure 118/66 02/11/2012 3:22 PM CDT Pulse 92 02/11/2012 3:22 PM CDT Temperature 36.7 ??C (98 ??F) 02/11/2012 3:22 PM CDT Respiratory Rate - - Oxygen Saturation - - Inhaled Oxygen Concentration - - Weight 55.9 kg (123 lb 3.2 oz) 02/11/2012 3:22 PM CDT Height 158.8 cm (5' 2.5) 02/11/2012 3:22 PM CDT Body Mass Index 22.17 02/11/2012 3:22 PM CDT Body Mass Index Percentile 64.41 % 02/11/2012 3:22 PM CD T Growth Chart: CDC (Girls, 2-20 Years) documented in this encounter Patient Instructions Patient InstructionsMarisela Brito MD - 02/11/2012 4:15 PM CDT Start your control pill on the first day of your next period Take one pill a day, the same time every day If you think you are having a side effect, call me Otherwise I need to see you when in your third marly documented in this encounter Progress Notes Carlton Mahoney Mattie - 02/11/2012 3:27 PM CDT Yancy Clinton is a 17 year old female here for a routine health maintenance visit, accompanied by her self. QUESTIONS/CONCERNS: BCP FAMILY/ SOCIAL HISTORY Child lives with: mother and sister Recent family changes/social stressors: none noted Family History: No changes since last physical Language(s) spoken at home: Algerian ENVIRONMENTAL RISK ASSESSMENT Is your child around anyone who smokes? NO Seat belt? YES Bike/sport helmet? N/A TB exposure? NO Pets in the home? YES 1 Dog Guns/firearms in the home? YES, Trigger locks present? YES Water source: city water and well water CHICKEN POX HISTORY: Previously vaccinated with 2 doses of Varivax TEEN RISK SCREEN: Form not used VISION No concerns HEARING No concerns REQUIRED VITAL SIGNS COMPLETED: yes BP 118/66 Pulse 92 Temp(Src) 98 ??F (36.7 ??C) (Oral) Ht 1.588 m (5' 2.5) Wt 55.883 kg (123lb 3.2 oz) BMI 22.17 kg/m2 LMP 01/30/2012 26.16% of growth percentile based on [id number]-[id number]. 52.92% of growth percentile based on srhjiw-ynh-duh. 64.29% of growth percentile based on BMI-for-age. 76.3% systolic and 51.3% diastolic of BP percentile by age, sex, and height. No sports physical needed. Staff signature: sharon HEALTH HISTORY SINCE LAST VISIT No surgery, major illness or injury since last physical exam Regular menstrual periods Can be light , monthly interested in starting BCP Not yet sexually active, but has a serious boyfriend. Cardiac risk assessment: none Immunization History Administered Date(s) Administered ??? DPT/HIB 1995, 1995, 1995, 04/29/1996 ? ? DTAP (<7y) 04/24/2000 ??? Hepatitis B 08/16/2002 ??? Human Papilloma Virus 02/03/2008, 04/18/2008, 02/05/2011 ??? IPV 04/24/2000 ??? MMR 04/29/1996, 09/15/2006 ??? Meningococcal (Menactra) 02/05/2011 ??? OPV 1995, 1995, 04/29/1996 ??? TDAP (ADACEL AGES 11-64) 09/15/2006 ??? Varicella Not Indicated - By Hx 12/24/1996 Allergies Allergen Reactions ??? No Known Allergies DAILY ACTIVITIES NUTRITION: good appetite, eats variety of foods SLEEP No concerns, sleeps well through night ELIMINATION Normal bowel movements and Normal urination EXERCISE/ RECREATION Organized / Team sports: Softball/ athletic physical is up to date ACTIVITIES: leadership Rally/ link (upper classes help with freshman) TV/ Media: < 2 hours/ day EDUCATION / EMPLOYMENT Concerns: no School: [employer] Grade:11 MENTAL HEALTH Concerns: no SEXUALITY Dating: yes- Sexual activity: no control / safe sex practices: discussed SUBSTANCE ABUSE Smoking: no Alcohol: no Drugs: no VISION: For details see above, Passed vision screen HEARING: For details see above, ROS GENERAL: See health history, nutrition and daily activities SKIN: No rash, hives or significant lesions HEENT: Hearing/vision: see above. No eye redness/discharge, nasal congestion, sneezing, snoring RESP: No cough, wheezing, SOB CV: No cyanosis, palpitations, syncope GI: See nutrition and elimination : See elimination MS: No swelling, arthralgia, weakness, gait problem NEURO: No headaches PSYCH: See development and behavior, or mental health EXAM GENERAL: Active, alert, in no acute distress. SKIN: Clear. No significant rash, abnormal pigmentation or lesions HEAD: Normocephalic EYES: Pupils equal, round, reactive, Extraocular muscles intact. Normal conjunctivae. EARS: Normal canals. Tympanic membranes are normal; murray and translucent. NOSE: Normal without discharge. MOUTH/THROAT: Clear. No oral lesions. Teeth without obvious abnormalities. NECK: Supple, no masses. No thyromegaly. LYMPH NODES: No adenopathy LUNGS: Clear. No rales, rhonchi, wheezing or retractions HEART: Regular rhythm. Normal S1/S2. No murmurs. Normal pulses. ABDOMEN: Soft, non-tender, not distended, no masses or hepatosplenomegaly. Bowel sounds normal. NEUROLOGIC: No focal findings. Cranial nerves grossly intact: DTR's normal. Normal gait, strength and tone BACK: Spine is straight, no scoliosis. EXTREMITIES: Full range of motion, no deformities : Exam deferred. ANTICIPATORY GUIDANCE The following topics were discussed: SOCIAL/ FAMILY: Future plans/ College NUTRITION: Healthy food choices Weight management HEALTH / SAFETY: Adequate sleep/ exercise Drugs, ETOH, smoking SEXUALITY: Safe sex/ STDs ASSESSMENT 1. Well teen with normal growth and development PLAN Body mass index is 22.17 kg/(m^2). Immunizations Reviewed, up to date See other orders in [facility] Referrals/Ongoing Specialty care: No Dental visit recommended: Continue care every 6 months RTC: 3rd month of control pills documented in this encounter Nursing Notes 02/11/2012 3:15 PM CDT >> CAR[place] Feb 11, 2012 3:27 PM Yancy is here for a well child and to discuss BCP Questioned patient about current smoking habits. Pt. has never smoked. Body mass index is 22.17 kg/(m^2). BP Cuff right Arm med Cuff PULSE regular My Chart: declines documented in this encounter Plan of Treatment Not on filedocumented as of this encounter Procedures Procedure Name Priority Date/Time Associated Comments Diagnosis ZZCL AFF HEMOGLOBIN Routine 02/11/2012 4:18 PM Routine infant or Results for this CDT child health check procedure are in the results section. HC VENOUS COLLECTION Routine 02/11/2012 4:10 PM Routine infant or CDT child health check documented in this encounter Results CL AFF HEMOGLOBIN ([facility]) (02/11/2012 4:18 PM CDT) P athologist Signature Hemoglobin 13.2 12 - 16 [facility] INTERNAL GM/DL Marisela Brito MD LABORATORY Performing Organization Address City/State/ZIP Code Phon e Number [facility] INTERNAL documented in this encounter Visit Diagnoses Diagnosis Other general counseling and advice for contraceptive management documented in this encounter Care Teams Structural Steel Erector Relationship Specialty Start Date End Date Marisela Brito MD PCP - General 12/10/9905/03 documented as of this encounter
--- OUTSIDE RECORDS SUMMARY | 2022-10-10 23:53 | XMS_ITS | Encounter Summary ---
:1995 Author Organization [place] Address [address] [place] [address] Care Team Providers Name Role Phone Marisela Brito MD Primary Care Provider Unavailable Reason for Visit Reason Comments Pharyngitis Encounter Details Date Type Department Care Team Description 02/17/2014 Office Visit [facility] Marisela Brito Tonsil litis with Zack Olivera MD exudate (Primary Dx) [address] [place] [address] Social History Tobacco Use Types Packs/Day Years Used Date Smoking Tobacco: Never Smokeless Tobacco: Never Alcohol Use Standard Drinks/Week Comments No 0 (1 standard drink = 0.6 oz pure alcoho l) Sex Assigned at Date Recorded Not on file documented as of this encounter Last Filed Vital Signs Vital Sign Reading Time Taken Comments Blood Pressure 110/68 02/17/2014 2:33 PM CDT Pulse 80 02/17/2014 2:33 PM CDT Temperature 36.4 ??C (97.5 ??F) 02/17/2014 2:33 PM CDT Respiratory Rate - - Oxygen Saturation - - Inhaled Oxygen Concentration - - Weight 58.2 kg (128 lb 6 oz) 02/17/2014 2:33 PM CDT Height 158.8 cm (5' 2.5) 02/17/2014 2:33 PM CDT Body Mass Index 23.11 02/17/2014 2:33 PM CDT documented in this encounter Patient Instructions Patient InstructionsMarisela Brito MD - 02/17/2014 3:09 PM CDT Take two ibuprofen/ three hours later, two acetaminophen Alternate back and forth (Ibuprofen best with rajan) Take antibiotic with food or milk documented in this encounter Progress Notes Marisela Brito MD - 02/17/2014 2:52 PM CDT SUBJECTIVE: 19 year old female presents with the following concern Student at [employer], asked her mother to come pick her up because she was too sick to attend classes Fourth day of severe sore throat/ able to swallow/ but symptoms are worsening Seen at student [facility]; negative strep test Prescribed Promethazine codeine Exhausted, but unable to sleep No documented fever OBJECTIVE: BP 110/68 Pulse 80 Temp 97.5 ??F (36.4 ??C) (Oral) Ht 1.588 m (5' 2.5) Wt 58.231 kg (128 lb6 oz) BMI 23.09 kg/m2 LMP 01/18/2014 ? No External ears and canals clear bilaterally. TM's normal bilaterally. Nose normal without lesions or discharge. Oropharynx: exudative tonsillitis/ 3-4+ Not touching midline. Neck supple with 3+ anterior cervical palpable adenopathy. No palpable posterior nodes No palpable liver or spleen' Chest is clear Assessment Exudative tonsillitis PLAN: Monospot (negative, but only four days of symptoms Elevated white count, with left shift RSS again negative Azithromycin prescribed Recheck if not significantly better in 72 hours documented in this encounter Nursing Notes 02/17/2014 2:30 PM CDT >> BOB GOODWIN ThuFeb 17, 2014 2:35 PM Yancy Clinton is here for a sore throat. Pre-visit planning: Colon: na Breast: na Immunizations: up to date Asthma: na PHQ9/ALCON: na Used med BP Cuff on pts left arm. Pts Pulse was regular. Pt was offered to sign up for My Chart and pt declines. Questioned patient about current smoking habits. Pt. has never smoked. CLASSIFICATION OF OVERWEIGHT AND OBESITY BY BMI Obesity Class BMI(kg/m2) Underweight < 18.5 Normal 18.5-24.9 Overweight 25.0-29.9 OBESITY I 30.0-34.9 II 35.0-39.9 EXTREME OBESITY III >40 Patient's BMI Body mass index is 23.09 kg/(m^2). http://hin.nhlbi.nih.gov/menuplanner/menu.cgi documented in this encounter Plan of Treatment Not on filedocumented as of this encounter Procedures Procedure Name Priority Date/Time Associated Diagnosis Comme nts THROAT CULTURE Routine 02/20/2014 8:18 AM Tonsillitis with Res ults for this AEROBIC BACTERIAL CDT exudate procedure are in the results section. ZZCL AFF MONO SCREEN Routine 02/17/2014 3:06 PM Tonsillitis wi th Results for this CDT exudate procedure are i n the results section. CL AFF Routine 02/17/2014 3:03 PM Tonsillitis with Resul ts for this HEMOGRAM/PLATE/DIFF CDT exudate procedur e are in the results section. HC VENOUS COLLECTION Routine 02/17/2014 2:55 PM Tonsillitis wi th CDT exudate RAPID STREP SCREEN Routine 02/17/2014 2:46 PM Tonsillitis with Results for this THROAT SWAB CDT exudate procedure are i n the results section. documented in this encounter Results THROAT CULTURE ([facility]) (02/20/2014 8:18 AM CDT) P athologist Signature Strep Group A neg [facility] INTERNAL Culture Throat Specimen (Source) Anatomical Location Collection Method / Collectio n Time Received Time / Laterality Volume Specimen from throat (specimen) Marisela Brito MD LAB - MICRO GENERAL ORDERABL ES Performing Organization Address City/State/ZIP Code Phon e Number [facility] INTERNAL CL AFF MONO SCREEN ([facility]) (02/17/2014 3:06 PM CDT) Analysis Performed At Patho logist Time Signature Mononucleosis NEG Neg [facility] INTERNAL Screen Marisela Brito MD LABORATORY Performing Organization Address City/State/ZIP Code Phon e Number [facility] INTERNAL (ABNORMAL) CL AFF HEMOGRAM/PLATE/DIFF ([facility]) (02/17/2014 3:03 PM CDT) Patholo gist Method Time Signature WBC 18.2 (A) 4.3 - 11 [facility] INTERNAL thous/CU.MM RBC Count 4.51 4.2 - 5.4 [facility] INTERNAL Thous/CU.MM Hemoglobin 14.0 12 - 16 [facility] INTERNAL GM/DL Hematocrit 45.0 38 - 47 % [facility] INTERNAL MCV 99.7 82 - 100 FL [facility] INTERNAL MCH 31.0 26 - 33 pg [facility] INTERNAL MCHC 31.1 31 - 36 [facility] INTERNAL PERCENT Platelet Count 310 150 - 375 [facility] INTERNAL 10^9/L % Granulocytes 76.5 % [facility] INTERNAL % Lymphocytes 14.6 % [facility] INTERNAL % Monocytes 8.9 % [facility] INTERNAL Marisela Brito MD LABORATORY Performing Organization Address City/State/ZIP Code Phon e Number [facility] INTERNAL RAPID STREP ([facility]) (02/17/2014 2:46 PM CDT) P athologist Signature Rapid Strep A NEG neg [facility] INTERNAL Screen Specimen (Source) Anatomical Location Collection Method / Collectio n Time Received Time / Laterality Volume Specimen from throat (specimen) Marisela Brito MD LAB - MICRO GENERAL ORDERABL ES Performing Organization Address City/State/ZIP Code Phon e Number [facility] INTERNAL documented in this encounter Visit Diagnoses Diagnosis Tonsillitis with exudate - Primary Acute tonsillitis documented in this encounter Care Teams Rn Endoscopy Relationship Specialty Start Date End Date Marisela Brito MD PCP - General 12/10/9905/03 documented as of this encounter
--- OUTSIDE RECORDS SUMMARY | 2022-10-10 23:53 | XMS_ITS | Encounter Summary ---
:1995 Author Organization [place] Address [address] [facility] [place] [address] Care Team Providers Name Role Phone Marisela Brito MD Primary Care Provider Unavailable Encounter Details Date Type Department Care Team Description 06/16/2014 Telephone [facility] ysicians Dereje Russell MD [address] [place] [address] [address] [place] [address] Social History Tobacco Use [...] on filedocumented in this encounter Care Teams Medical Case Worker Relationship Specialty Start Date End Date Marisela Brito MD PCP - General 12/10/9905/03 documented as of this encounter
--- OUTSIDE RECORDS SUMMARY | 2022-10-10 23:53 | XMS_ITS | Encounter Summary ---
:1995 Author Organization [place] Address [address] [facility] [place] [address] Care Team Providers Name Role Phone Marisela Brito MD Primary Care Provider Unavailable Reason for Visit Reason Onset Date Comments Outreach 06/13/2014 Encounter Details Date Type Department Care Team Description 06/13/2014 Telephone [facility] ysicians Marisela Brito MD Outreach [address] [place] [address] [address] [place] [address] Social History Tobacco Use Types Packs/Day Years Used Date Smoking Tobacco: Never Smokeless Tobacco: Never Alcohol Use Standard Drinks/Week Comments No 0 (1 standard drink = 0.6 oz pure alcoho l) Sex Assigned at Date Recorded Not on file documented as of this encounter Miscellaneous Notes Telephone Encounter - Judith Lorenzo - 06/13/2014 9:13 AM CDT Pt called and asked if her test results were in from Fri. Pt informed all results not in yet and we would inform her once in. Pt states she is feeling much betterJudith documented in this encounter Plan of Treatment Not on filedocumented as of this encounter Visit Diagnoses Not on filedocumented in this encounter Care Teams Cost Controller Relationship Specialty Start Date End Date Marisela Brito MD PCP - General 12/10/9905/03 documented as of this encounter
--- OUTSIDE RECORDS SUMMARY | 2022-10-10 23:53 | XMS_ITS | Encounter Summary ---
:1995 Author Organization [place] Address [address] [facility] [place] [address] Care Team Providers Name Role Phone Marisela Brito MD Primary Care Provider Unavailable Encounter Details Date Type Department Care Team Description 06/19/2008 Emergency room [facility] Results EMERGENCY PHYSI YUNIOR NICOLE [address] [place] [address] (Wo rk) Social History Tobacco Use Types Packs/Day Years Used Date Smoking Tobacco: Never Alcohol Use Standard Drinks/Week Comments No 0 (1 standard drink = 0.6 oz pure alcoho l) Sex Assigned at Date Recorded Not on file documented as of this encounter Progress Notes Interface, Dance Artist - 06/22/2008 7:34 PM CDT FINAL CHIEF COMPLAINT: Hand pain and arm deformity. 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 She is right- hand dominant. She has no numbness or tingling or radiation of pain. She is here for right wrist deformity and pain. PAST MEDICAL HISTORY: Healthy. No hospitalization. MEDICATIONS: None. ALLERGIES: No known drug allergies. IMMUNIZATIONS: Up-to-date. PRIMARY MEDICAL DOCTOR: [facility]. FAMILY HISTORY: Noncontributory. SOCIAL HISTORY: Lives with family. REVIEW OF SYSTEMS: MUSCULOSKELETAL: Right wrist deformity with pain. Can move fingers well. Right hand pain in the metacarpal area. No numbness or tingling, can move fingers well. NEUROLOGIC: No numbness or tingling, radiation of pain. All other systems are negative. PHYSICAL EXAMINATION: VITAL SIGNS: Temperature 98.8, respirations 16, pulse 80, blood pressure 112/71 and room air pulse ox 99%. GENERAL: Yancy looks to be in moderate discomfort, but is alert. SKIN: She does have a very superficial abrasion over the area of discomfort of the dorsal aspect ofthe wrist distally. No active bleeding. She has multiple old abrasions from injuries, no ecchymosis over the right wrist or hand. HEENT: Within normal limits. LUNGS: Clear to auscultation in all paredes. Breath sounds are equal bilaterally. Excellent air exchange. HEART: Regular rate and rhythm without murmur. EXTREMITIES: Without clubbing, cyanosis, edema or deformity except for the right upper extremity. She does have an obvious deformity at the wrist. She has a radial pulse of +2. She can move her fingers well. Median, ulnar and radial nerves are completely intact. She has no significant pain on palpation of the metacarpals. No obvious deformity of her hand or fingers. NEUROLOGIC: She is alert, age appropriate and neurovascular is intact to the right upper extremity wrist and hand. DIAGNOSTICS: X-ray reveals a Salter II fracture of the distal radius with angulation and there is no evidence of metacarpal fractures. PROCEDURE NOTE: 1. I gave her a hematoma block. I mixed 2 cc of sodium bicarbonate with 8 cc of 1% lidocaine without epinephrine. I injected this into the hematoma of the right wrist after I cleansed the abrasion of the right wrist. Then we did dress the abrasion with bacitracin and Adaptic and then 1 layer of gauze. 2. I reduced the Salter II fracture in one maneuver only. 3. I placed a reverse sugar tong on the right upper extremity. Once this was dried, she could move the fingers and they were pink. I did get an x-ray, showed pretty good alignment. ED course was unremarkable. I told her that she would have to follow up with [facility] tomorrow. I actually did speak with Dr. Vivienne Garrett from [facility] and told her that she would need to be seen and Dr. Garrett took her number and said that the clinic would call them in the morning. I told her that because this was a Salter fracture, she definitely needed to be seen. I also told mom not to wait for the clinic to call but she should call with the card given and make an appointment for tomorrow. She felt comfortable at discharge. Her ED course was unremarkable. FLACC was a 2, pulse 74, respirations 18, blood pressure 113/66 and room air pulse ox 99%. DIAGNOSES: 1. Salter II fracture of the distal radius. 2. Hand sprain. PLAN: Do not sleep in sling, arm on pillow overnight, ice 20 minutes per hour x72 hours. Call orthofor appointment later today. Call at 8:30 a.m. Electronically signed on 06/22/2008 19:33 by SHLOMO AGUERO MD MT: [facility][id number] Name: YANCY CLINTON Account: [id number] : 1995 Visit Date: 06/19/2008 Document: [id number] documented in this encounter Plan of Treatment Not on filedocumented as of this encounter Visit Diagnoses Not on filedocumented in this encounter Care Teams Land Surveying Survey Worker Relationship Specialty Start Date End Date Marisela Brito MD PCP - General 12/10/9905/03 documented as of this encounter
--- OUTSIDE RECORDS SUMMARY | 2022-10-10 23:53 | XMS_ITS | Encounter Summary ---
:1995 Author Organization [place] Address [address] [place] [address] Care Team Providers Name Role Phone Marisela Brito MD Primary Care Provider Unavailable Reason for Visit Reason Comments RECHECK Encounter Details Date Type Department Care Team Description 06/09/2014 Office Visit [facility] Physicians MD Altagracia (Primary Dx) [address] [place] [address] Social History Tobacco Use Types Packs/Day Years Used Date Smoking Tobacco: Never Smokeless Tobacco: Never Alcohol Use Standard Drinks/Week Comments No 0 (1 standard drink = 0.6 oz pure alcoho l) Sex Assigned at Date Recorded Not on file documented as of this encounter Last Filed Vital Signs Vital Sign Reading Time Taken Comments Blood Pressure 114/60 06/09/2014 9:31 AM CDT Pulse 62 06/09/2014 9:31 AM CDT Temperature 36.8 ??C (98.2 ??F) 06/09/2014 9:31 AM CDT Respiratory Rate - - Oxygen Saturation - - Inhaled Oxygen Concentration - - Weight 58.5 kg (129 lb) 06/09/2014 9:31 AM CDT Height 158.8 cm (5' 2.5) 06/09/2014 9:31 AM CDT Body Mass Index 23.22 06/09/2014 9:31 AM CDT documented in this encounter Progress Notes Dereje Russell MD - 06/09/2014 9:52 AM CDT Diarrhea issue Onset: recheck, she saw me for abdominal, epigastric pain four days ago but no stool change, two days ago she started having frequent diarrhea and still has many watery stools a day, not bloody, no fever Context: ate at [employer], May 23, ate oriental chicken salad Description of stool: watery Frequency: several times a day vomiting: no Abdominal pain: yes Oral intake: ok Other sick family or friends: no Recent rx of antibiotics: no Medications used for this: no Exam findings: normal mouth moisture in an alert responsive person who is in no distress. abdominal findings: not examined today Plans for stool testing: yes ova Yes culture ASSESSMENT: ICD-9-CM 1. Gastroenteritis, acute 558.9 STOOL CX O&P INFORMATION (BFP) possible pathogenic e coli /Apple Bees Per encounter diagnoses. PLAN:Conservative diarrhea management focusing on rehydration therapy is the prime effort at this time with some symptom management if possible. We discussed fluid replacement, and to use peptobismol after spec obttained Per orders. documented in this encounter Nursing Notes Chinyere Donnelly - 06/09/2014 9:31 AM CDT Pt is here for a follow up on recent ov. Pt states she is is feeling worse. Pt has developed diarrhea and nausea since Thursday night Pre-visit planning: Colon: na Breast: na Immunizations: up to date Asthma: na PHQ9/ALCON: na Used regular BP Cuff on pts right arm. Pts Pulse was regular. Pt was offered to sign up for My Chart and pt accepts Questioned patient about current smoking habits. Pt. has never smoked. CLASSIFICATION OF OVERWEIGHT AND OBESITY BY BMI Obesity Class BMI(kg/m2) Underweight < 18.5 Normal 18.5-24.9 Overweight 25.0-29.9 OBESITY I 30.0-34.9 II 35.0-39.9 EXTREME OBESITY III >40 Patient's BMI Body mass index is 23.2 kg/(m^2). http://hin.nhlbi.nih.gov/menuplanner/menu.cgi documented in this encounter Plan of Treatment Scheduled Orders Name Type Priority Associated Diagnoses Order S chedule STOOL CX O&P INFORMATION Lab Routine Gastroenteritis, acute Ordered: 06/09/2014 ([facility]) documented as of this encounter Procedures Procedure Name Priority Date/Time Associated Diagnosis Comme nts STOOL CULTURE Routine 06/09/2014 11:21 AM Gastroenteritis, Res ults for this SALM/SHIG/CAMPY CDT acute procedure ar e in W/RELEX E.CHOLI the results ([facility]) section. OVA AND PARASITES Routine 06/09/2014 11:21 AM Gastroenteritis, Results for this ([facility]) CDT acute procedure are i n the results section. documented in this encounter Results Stool Culture Salm/Shig/Campy ([facility]) (06/09/2014 11:21 AM CDT) P athologist Signature EIA SEE COMMENT [employer] TechnologiesTARYN ZENG Comment: ??SHIGA TOXINS, EIA W/RFL TO E.COLI O15 7 CULTURE ?MICRO NUMBER: ?[id number] ??TEST STATUS: ? FINAL ??SPECIMEN SOURCE: ?? STOOL ??SPECIMEN QUALITY: ??ADEQUATE ??RESULT: ?Not Detected Culture SEE COMMENT ELISA [employer] ZEPEDA Comment: ??CAMPYLOBACTER, CULTURE ?MICRO NUMBER: ?[id number] ??TEST STATUS: ? FINAL ??SPECIMEN SOURCE: ?? STOOL ??SPECIMEN QUALITY: ??ADEQUATE ??RESULT: ?No enteric C ampylobacter isolated Culture Stool SEE COMMENT [employer] PEPE Comment: ??SALMONELLA AND SHIGELLA, CULTURE ?MICRO NUMBER: ?[id number] ??TEST STATUS: ? FINAL ??SPECIMEN SOURCE: ?? STOOL ??SPECIMEN QUALITY: ??ADEQUATE ??RESULT: ?No Salmonell a or Shigella isolated Specimen Anatomical Collection Method Collection Time Receive d Time (Source) Location / / Volume Laterality Stool specimen 06/09/2014 11:21 4 1:46 (specimen) AM CDT AM CDT Resulting Agency Comment Performing Organization Information: ? [place] ? [facility] ? [address] [place], [place] [address] ? Josh Blank M.D. Dereje Russell MD LAB - NON-BEAKER NON-BLOOD Performing Organization Address City/State/ZIP Code Phon e Number [facility] [address] [place], [place] [address] [facility] [address] [place], [place] [address] Ova and parasites ([facility]) (06/09/2014 11:21 AM CDT) athologist Signature Trichrome SEE COMMENT [facility] Comment: ??OVA AND PARASITES, STOOL CONC AND PER M SMEAR ?MICRO NUMBER: ?[id number] ??TEST STATUS: ? FINAL ??SPECIMEN SOURCE: ?? STOOL ??SPECIMEN QUALITY: ??ADEQUATE ??CONCENTRATION 1: ?? No ova or parasit es seen ? Many Whit e blood cells seen ??TRICHROME 1: ? No ova or doug ites seen ? Many Whit e blood cells seen ? One negat malaika sample does not necessarily rule out ? the prese nce of a parasitic infection. Routine Ova ? and Doug ite exam may not detect some parasites ? that occa sionally cause diarrheal illness. Test ? code(s) 3 7213X (Cryptosporidium Ag., DFA) and/or ? 40524Z (C yclospora and Isospora Exam) may be ? ordered t o detect these parasites. Specimen Anatomical Collection Method Collection Time Receive d Time (Source) Location / / Volume Laterality Stool specimen 06/09/2014 11:21 4 1:46 (specimen) AM CDT AM CDT Resulting Agency Comment Performing Organization Information: ? CB ? [facility] ? [address] [facility] [place] [address] ? Josh Blank M.D. Dereje Russell MD LAB - MICRO GENERAL ORDERABL ES Performing Organization Address City/State/ZIP Code Phon e Number [facility] [address] [facility] [place] [address] [facility] [address] [place], [place] [address] documented in this encounter Visit Diagnoses Diagnosis Gastroenteritis, acute - Primary Other and unspecified noninfectious laura roenteritis and colitis documented in this encounter Care Teams Professor Of Religious Studies Relationship Specialty Start Date End Date Marisela Brito MD PCP - General 12/10/9905/03 documented as of this encounter
--- OUTSIDE RECORDS SUMMARY | 2022-10-10 23:53 | XMS_ITS | Encounter Summary ---
:1995 Author Organization [place] Address [address] [facility] [address] Care Team Providers Name Role Phone Marisela Brito MD Primary Care Provider Unavailable Reason for Visit Reason Onset Date Comments *-*INCOMING RECORDS*-* 04/25/2015 OBGYN Encounter Details Date Type Department Care Team Description 04/25/2015 Telephone [facility] Marisela Brito, *-* INCOMING RECORDS*-* Physicians (OBGYN) [address] [place] [address] Social History Tobacco Use Types Packs/Day Years Used Date Smoking Tobacco: Never Smokeless Tobacco: Never Alcohol Use Standard Drinks/Week Comments No 0 (1 standard drink = 0.6 oz pure alcoho l) Sex Assigned at Date Recorded Not on file documented as of this encounter Miscellaneous Notes Telephone Encounter - Judith Lorenzo - 04/30/2015 8:28 AM CDT See new encounter, call out to OB, Renetta Telephone Encounter - Leda Gandhi PA - 04/29/2015 9:42 PM CDT Please call OBGYN. Based on ACOG she would be due for repeat colposcopy but I would like to get OB input before referring since they just saw her last year. Leda Gandhi PA-C 04/29/2015 Telephone Encounter - Judith Lorenzo - 04/27/2015 8:50 AM CDT Please review for BJS: Can you please review last years colposcopy( scanned into this encounter) to this years pap( done here ) and advise next steps. 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 Renetta documented in this encounter Plan of Treatment Not on filedocumented as of this encounter Visit Diagnoses Not on filedocumented in this encounter Care Teams Day Care Worker Relationship Specialty Start Date End Date Marisela Brito MD PCP - General 12/10/9905/03 documented as of this encounter
--- OUTSIDE RECORDS SUMMARY | 2022-10-10 23:53 | XMS_ITS | Encounter Summary ---
:1995 Author Organization [place] Address [address] [facility] [place] [address] Care Team Providers Name Role Phone Marisela Brito MD Primary Care Provider Unavailable Reason for Visit Reason Onset Date Comments Refill Request 01/01/2015 Encounter Details Date Type Department Care Team Description 01/01/2015 Refill [facility] ysicians Marisela Brito MD Refill Request [address] [place] [address] [address] [place] [address] Social History Tobacco Use Types Packs/Day Years Used Date Smoking Tobacco: Never Smokeless Tobacco: Never Alcohol Use Standard Drinks/Week Comments No 0 (1 standard drink = 0.6 oz pure alcoho l) Sex Assigned at Date Recorded Not on file documented as of this encounter Miscellaneous Notes Telephone Encounter - Jessica Araujo - 01/01/2015 10:46 AM CST Yancy Clinton Pending Prescriptions: Disp Refills norethindrone-ethinyl estradiol-iron (GREGORIO*1 Pack*0 Sig: Take 1 tablet by mouth daily Pt has physical on 02-24-15 with [facility], only needs one pack per pt. S LINED TANK REPAIRER documented in this encounter Plan of Treatment Not on filedocumented as of this encounter Visit Diagnoses Diagnosis Contraception - Primary Unspecified contraceptive management documented in this encounter Care Teams Court Magistrate Relationship Specialty Start Date End Date Marisela Brito MD PCP - General 12/10/9905/03 documented as of this encounter
--- OUTSIDE RECORDS SUMMARY | 2022-10-10 23:53 | XMS_ITS | Encounter Summary ---
:1995 Author Organization [place] Address [address] [facility] [place] [address] Care Team Providers Name Role Phone Marisela Brito MD Primary Care Provider Unavailable Reason for Visit Reason Comments Physical Encounter Details Date Type Department Care Team Description 02/09/2013 Office Visit [facility] Routine ge neral medical examination at a health care facility (Primary Dx); Physicians MD Amador Other general counseling and advice for contraceptive management [address] , [id number] [place] [id number] [phone] Social History Tobacco Use Types Packs/Day Years Used Date Smoking Tobacco: Never Smokeless Tobacco: Never Alcohol Use Standard Drinks/Week Comments No 0 (1 standard drink = 0.6 oz pure alcoho l) Sex Assigned at Date Recorded Not on file documented as of this encounter Last Filed Vital Signs Vital Sign Reading Time Taken Comments Blood Pressure 112/74 02/09/2013 6:02 PM CDT Pulse 76 02/09/2013 6:02 PM CDT Temperature 36.7 ??C (98 ??F) 02/09/2013 6:02 PM CDT Respiratory Rate - - Oxygen Saturation - - Inhaled Oxygen Concentration - - Weight 57.6 kg (127 lb) 02/09/2013 6:02 PM CDT Height 157.5 cm (5' 2) 02/09/2013 6:02 PM CDT Body Mass Index 23.23 02/09/2013 6:02 PM CDT Body Mass Index Percentile 70.47 % 02/09/2013 6:02 PM CD T Growth Chart: CDC (Girls, 2-20 Years) documented in this encounter Progress Notes Timmy Kumar MD - 02/09/2013 6:23 PM CDT SUBJECTIVE: CC: Yancy Clinton is a 18 year old female who presents for CPE HPI: she is not sexually active HISTORIES: Patient Active Problem List Diagnosis ??? VIRAL WARTS NOS ??? Other reasons for seeking consultation No past medical history on file. Past Surgical History Procedure Date ??? Dental surgery Current Outpatient Prescriptions Medication Sig Dispense Refill ??? norethindrone-ethinyl estradiol (MICROGESTIN .5) 1.5-30 MG-MCG TABS Take 1 tablet by mouth daily. ??? Multiple Vitamins-Calcium (ONE-A-DAY WITHIN) TABS Take 1 tablet by mouth daily. Allergies Allergen Reactions ??? No Known Allergies History Social History ??? Marital Status: Single Spouse Name: N/A Number of Children: N/A ??? Years of Education: N/A Occupational History ??? Student [employer] Social History Main Topics ??? Smoking status: Never Smoker ??? Smokeless tobacco: Never Used ??? Alcohol Use: No ??? Drug Use: No ??? Sexually Active: No Other Topics Concern ??? Service No ??? Blood Transfusions No ??? Exercise Yes Social History Narrative ??? No narrative on file Family History Problem Relation Age of Onset ??? Alzheimers No family hx of ??? Diabetes No family hx of ??? Cancer No family hx of ??? Heart No family hx of HEALTH MAINTENANCE: Health Maintenance Topic Date Due ??? Peds Hep A (#1) 1996 ??? General Health Screening 2008 ??? Influenza Vaccine (System Assigned) 08/23/2013 ??? Tetanus Immunization ( [place] Assigned) 09/15/2016 REVIEW OF OUTSIDE RECORDS: NO ROS: CONSTITUTIONAL:NEGATIVE for fever, chills, change in weight INTEGUMENTARY/SKIN: NEGATIVE for worrisome rashes, moles or lesions and does have heel warts EYES: NEGATIVE for vision changes or irritation ENT/MOUTH: NEGATIVE for ear, mouth and throat problems RESP:NEGATIVE for significant cough or SOB BREAST: NEGATIVE for masses, tenderness or discharge CV: NEGATIVE for chest pain, palpitations or peripheral edema GI: NEGATIVE for nausea, abdominal pain, heartburn, or change in bowel habits : normal menstrual cycles MUSCULOSKELETAL: NEGATIVE for significant arthralgias or myalgia NEURO: NEGATIVE for weakness, dizziness or paresthesias ENDOCRINE: NEGATIVE for temperature intolerance, skin/hair changes HEME/ALLERGY/IMMUNE: NEGATIVE for bleeding problems PSYCHIATRIC: NEGATIVE for changes in mood or affect BP 112/74 Pulse 76 Temp(Src) 98 ??F (36.7 ??C) (Oral) Ht 1.575 m (5' 2) Wt 57.607 kg (127 lb) BMI 23.23 kg/m2 LMP 01/18/2013 EXAM: GENERAL APPEARANCE: healthy, alert and no distress EYES: Eyes grossly normal to inspection, PERRL and conjunctivae and sclerae normal HENT: ear canals and TM's normal and nose and mouth without ulcers or lesions NECK: no adenopathy, no asymmetry, masses, or scars and thyroid normal to palpation RESP: lungs clear to auscultation - no rales, rhonchi or wheezes BREAST: normal without masses, tenderness or nipple discharge and no palpable axillary masses or adenopathy CV: regular rates and rhythm, normal S1 S2, no S3 or S4 and no murmur, click or rub LYMPHATICS: normal ant/post cervical and supraclavicular nodes ABDOMEN: soft, nontender, without hepatosplenomegaly or masses and bowel sounds normal (female): deferred to age 21 MS: extremities normal- no gross deformities noted SKIN: no suspicious lesions or rashes NEURO: Normal strength and tone, mentation intact and speech normal PSYCH: mentation appears normal and affect normal/bright ASSESSMENT/PLAN V70.0 Routine general medical examination at a health care facility (primary encounter diagnosis) Comment: discussed preventitive healthcare Plan: Behavior Modicications suggested: Cariolvascular exercise 3 times per week--enough to get your Target Heart rate Compliance issues with diet and lifestyle discussed Protection from UV exposure Immunizations suggested: Influenza Yearly Other recommendations: Health Care directive BMI noted and discussed Monthly breast exam V25.09 Other general counseling and advice for contraceptive management Comment: doing well Plan: norethindrone-ethinyl estradiol (MICROGESTIN 1.5/30) 1.5-30 MG-MCG TABS continue current medications at current doses I have discussed with patient the risks, benefits, medications, treatment options and modalities. I have instructed the patient to call or schedule a follow-up appointment if any problems or failureto improve. documented in this encounter Nursing Notes 02/09/2013 6:00 PM CDT >> ADEEL COLON ThuFeb 09, 2013 6:10 PM Pre-visit planning: Colonoscopy- na Mammo- na Immunizations- utd Asthma-na PHQ9/ALCON-na Pt here for non fasting physical. Questioned patient about current smoking habits. Pt. has never smoked. Body mass index is 23.23 kg/(m^2). BP Cuff left Arm regular Cuff PULSE regular My Chart: declines ETOH screening: Questions: 1-How often do you have a drink containing alcohol? 0 times per year(s) 2-How many drinks containing alcohol do you have on a typical day when you are Drinking? 0 3- How often do you have 5 or more drinks on one occasion? 0 per year Have you ever: @None of the patient's responses to the CAGE screening were positive / Negative CAGE score@ documented in this encounter Plan of Treatment Not on filedocumented as of this encounter Visit Diagnoses Diagnosis Routine general medical examination at a health care facility - Primary Other general counseling and advice for contraceptive management documented in this encounter Care Teams Mail Handler Assistant Relationship Specialty Start Date End Date Marisela Brito MD PCP - General 12/10/9905/03 documented as of this encounter
--- OUTSIDE RECORDS SUMMARY | 2022-10-10 23:53 | XMS_ITS | Encounter Summary ---
:1995 Author Organization [place] Address [address] [facility] [place] [address] Care Team Providers Name Role Phone Marisela Brito MD Primary Care Provider Unavailable Reason for Visit Reason Comments Repeat Pap Smear Encounter Details Date Type Department Care Team Description 04/12/2015 Office Visit [facility] Marisela Brito Screen ing for Physicians MD Jarod malignant neoplasm of [address] [place] [address] cervix (Primary Dx) [address] [place] [address] Social History Tobacco Use Types Packs/Day Years Used Date Smoking Tobacco: Never Smokeless Tobacco: Never Alcohol Use Standard Drinks/Week Comments No 0 (1 standard drink = 0.6 oz pure alcoho l) Sex Assigned at Date Recorded Not on file documented as of this encounter Last Filed Vital Signs Vital Sign Reading Time Taken Comments Blood Pressure 108/68 04/12/2015 11:20 AM CDT Pulse 77 04/12/2015 11:20 AM CDT Temperature 36.6 ??C (97.8 ??F) 04/12/2015 11:20 AM CDT Respiratory Rate - - Oxygen Saturation - - Inhaled Oxygen Concentration - - Weight 59.4 kg (131 lb) 04/12/2015 11:20 AM CDT Height 158.8 cm (5' 2.5) 04/12/2015 11:20 AM CDT Body Mass Index 23.58 04/12/2015 11:20 AM CDT documented in this encounter Progress Notes Marisela Brito MD - 04/12/2015 11:56 AM CDT Repeat pap smear Insufficient cells on previous samplin03/09/2015 No charge for visit Updated HX: Grandfather with bone cancer,? Multiple myeloma documented in this encounter Nursing Notes Antonette Brady CMA - 04/12/2015 11:22 AM CDT Yancy Watts Oz is here for repeat pap Pre-visit planning: Colon: NA Breast: NA Immunizations: up to date Asthma: NA PHQ9/ALCON: NA Used Reg BP Cuff on pts left arm. Pts Pulse was regular. Pt was offered to sign up for My Chart and pt accepts. Questioned patient about current smoking habits. Pt. has never smoked. CLASSIFICATION OF OVERWEIGHT AND OBESITY BY BMI Obesity Class BMI(kg/m2) Underweight < 18.5 Normal 18.5-24.9 Overweight 25.0-29.9 OBESITY I 30.0-34.9 II 35.0-39.9 EXTREME OBESITY III >40 Patient's BMI Body mass index is 23.56 kg/(m^2). http://hin.nhlbi.nih.gov/menuplanner/menu.cgi documented in this encounter Plan of Treatment Not on filedocumented as of this encounter Procedures Procedure Name Priority Date/Time Associated Diagnosis Comme nts THINPREP PAP RFLX Routine 04/12/2015 12:10 PM Screening for Re sults for this HPV MRNA E6/E7 CDT malignant neoplasm procedu re are in ([facility]) of cervix the results section. HPV MRNA E6/E7 Routine 04/12/2015 12:10 PM Result s for this ([facility]) CDT procedure are i n the results section. documented in this encounter Results (ABNORMAL) HPV mRNA E6/E7 ([facility]) (04/12/2015 12:10 PM CDT) [facility] Method Time Signature HPV mRNA Detected (A) Not Detected [facility] Comment: This test was performed using the APTIMA HPV Assay ([employer] ? This assay detects E6/E7 viral messenger RNA (mRNA) from 14 high-risk HPV types (16,18,31,33,35,39,4 5,51,52,56,58,59,66,68). Specimen Anatomical Collection Method Collection Time Receive d Time (Source) Location / / Volume Laterality 04/12/2015 12:10 04/13/2015 5:59 PM CDT AM CDT Resulting Agency Comment Performing Organization Information: ? [place] ? [facility] ? [address] [place], [place] [address] ? Josh Blank M.D. Marisela Brito MD LAB - NON-BEAKER NON-BLOOD Performing Organization Address City/State/ZIP Code Phon e Number [facility] [address] [place], [place] [address] [facility] [address] [place], [place] [address] (ABNORMAL) ThinPrep Pap and HPV (mRNA E6/E7){HPV-REFLEX} ([facility]) (04/12/2015 12:10 PM CDT) [facility] Method Time Signature Clinical SEE COMMENT [facility] Comment: repeat Pap P0 INSUFFICIENT CELLS LAST SAMP LMP 50,315 [facility] Last Pap Diagnosis 52,115 [facility] Prev Bx Dx 52,115 [facility] Source Cervix [facility] Statement of Adequacy SEE COMMENT [facility] Comment: Satisfactory for evaluation. Endocervical/transformation zone compone nt present. General Categorization SEE COMMENT (A) [facility] Comment: EPITHELIAL CELL ABNORMALITY Descriptive Diagnosis SEE COMMENT (A) [facility] Comment: Atypical Squamous Cells of Undetermined Significance (ASC-US) Senior Principal: SEE COMMENT [facility] Comment: JXD, CT(ASCP) Pathologist SEE COMMENT [facility] Comment: Meet Flood Jr., M.D., Board Certif ied in Anatomic Pathology, Clinical Pathology and Cytopa thology, [phone] ?? (electronic signature) Specimen Anatomical Collection Method Collection Time Receive d Time (Source) Location / / Volume Laterality Cervical swab 04/12/2015 12:10 04/13/2015 5:59 (specimen) PM CDT AM CDT Resulting Agency Comment Performing Organization Information: ? [place] ? [facility] ? [address] [facility] [place] [address] ? Josh Blank M.D. Marisela Brito MD LAB - NON-BEAKER NON-BLOOD Performing Organization Address City/State/ZIP Code Phon e Number [facility] [address] [facility] [place] [address] [facility] [address] [place], [place] [address] documented in this encounter Visit Diagnoses Diagnosis Screening for malignant neoplasm of cerv ix - Primary Screening for malignant neoplasm of the cervix documented in this encounter Care Teams Flooring Machine Feeder Relationship Specialty Start Date End Date Marisela Brito MD PCP - General 12/10/9905/03 documented as of this encounter
--- OUTSIDE RECORDS SUMMARY | 2022-10-10 23:53 | XMS_ITS | Encounter Summary ---
:1995 Author Organization [place] Address [address] [facility] [place] [address] Care Team Providers Name Role Phone Marisela Brito MD Primary Care Provider Unavailable Reason for Visit Reason Comments Derm Problem Encounter Details Date Type Department Care Team Description 07/27/2009 Office Visit [facility] Dereje Russell VIRAL WARTS NOS Physicians MD Altagracia (Primary Dx) [address] [place] [address] Social History Tobacco Use Types Packs/Day Years Used Date Smoking Tobacco: Never Alcohol Use Standard Drinks/Week Comments No 0 (1 standard drink = 0.6 oz pure alcoho l) Sex Assigned at Date Recorded Not on file documented as of this encounter Last Filed Vital Signs Vital Sign Reading Time Taken Comments Blood Pressure 100/64 07/27/2009 4:01 PM CDT Pulse 76 07/27/2009 4:01 PM CDT Temperature 36.4 ??C (97.6 ??F) 07/27/2009 4:01 PM CDT Respiratory Rate 16 07/27/2009 4:01 PM CDT Oxygen Saturation - - Inhaled Oxygen Concentration - - Weight 57.6 kg (127 lb) 07/27/2009 4:01 PM CDT Height 160 cm (5' 3) 07/27/2009 4:01 PM CDT Body Mass Index 22.5 07/27/2009 4:01 PM CDT Body Mass Index Percentile 78.48 % 07/27/2009 4:01 PM CD T Growth Chart: CDC (Girls, 2-20 Years) documented in this encounter Progress Notes Dereje Russell - 07/31/2009 7:50 AM CDT Several warts left foot, 5 of them, Liquid nitrogen was applied for 10-12 seconds to the skin lesions and the expected blistering or scabbing reaction explained. Do not pick at the areas. Patient reminded to expect hypopigmented scars from the procedure. Return if lesions fail to fully resolve [place] [address] 1-14. documented in this encounter Nursing Notes 07/27/2009 4:15 PM CDT >> DEYSI GUILLERMO Fri Jul 27, 2009 4:06 PM Yancy Clinton is here for warts on her foot. Questioned patient about current smoking habits. Pt. no exposure to second hand smoke. Body mass index is 22.50 kg/(m^2). BP Cuff left Arm medium Cuff PULSE regular My Chart: declines CLASSIFICATION OF OVERWEIGHT AND OBESITY BY BMI Obesity Class BMI(kg/m2) Underweight < 18.5 Normal 18.5-24.9 Overweight 25.0-29.9 OBESITY I 30.0-34.9 II 35.0-39.9 EXTREME OBESITY III >40 Patient's BMI Body mass index is 22.50 kg/(m^2). Http://hin.nhlbi.nih.gov/menuplanner/menu.cgi documented in this encounter Plan of Treatment Not on filedocumented as of this encounter Procedures Procedure Name Priority Date/Time Associated Diagnosis Comme nts HC DESTRUCT BENIGN Routine 07/31/2009 7:50 AM CDT VIRAL WARTS NOS LESION, UP TO 14 documented in this encounter Visit Diagnoses Diagnosis VIRAL WARTS NOS - Primary Viral warts, unspecified documented in this encounter Care Teams Adapted Physical Education Teacher Relationship Specialty Start Date End Date Marisela Brito MD PCP - General 12/10/9905/03 documented as of this encounter
--- OUTSIDE RECORDS SUMMARY | 2022-10-10 23:53 | XMS_ITS | Encounter Summary ---
:1995 Author Organization [place] Address [address] [place] [address] Care Team Providers Name Role Phone Marisela Brito MD Primary Care Provider Unavailable Reason for Visit Reason Comments Physical Encounter Details Date Type Department Care Team Description 02/05/2011 Office Visit [facility] Routine in maria or child health check (Primary Dx); Physicians MD [place] Menactra meningococcal conjugate vaccine ; [address] , [facility]-viral disea se [id number] [place] [address] [phone] Social History Tobacco Use Types Packs/Day Years Used Date Smoking Tobacco: Never Alcohol Use Standard Drinks/Week Comments No 0 (1 standard drink = 0.6 oz pure alcoho l) Sex Assigned at Date Recorded Not on file documented as of this encounter Last Filed Vital Signs Vital Sign Reading Time Taken Comments Blood Pressure 110/62 02/05/2011 1:20 PM CDT Pulse 76 02/05/2011 1:20 PM CDT Temperature 36.4 ??C (97.6 ??F) 02/05/2011 1:20 PM CDT Respiratory Rate - - Oxygen Saturation - - Inhaled Oxygen Concentration - - Weight 57.6 kg (127 lb) 02/05/2011 1:20 PM CDT Height 157.5 cm (5' 2) 02/05/2011 1:20 PM CDT Body Mass Index 23.23 02/05/2011 1:20 PM CDT Body Mass Index Percentile 77.24 % 02/05/2011 1:20 PM CD T Growth Chart: CDC (Girls, 2-20 Years) documented in this encounter Progress Notes Carlton Willams - 02/05/2011 3:01 PM CDT Addended by: CARLTON WILLAMS on: 02/05/2011 Modules accepted: Orders Amber Colon - 02/05/2011 1:25 PM CDT Yancy Clinton is a 16 year old female here for a routine health maintenance visit, accompanied by her self. QUESTIONS/CONCERNS: None FAMILY/ SOCIAL HISTORY Child lives with: mother and sister Recent family changes/social stressors: none noted Family History: No changes since last physical Language(s) spoken at home: [place] ENVIRONMENTAL RISK ASSESSMENT Is your child around anyone who smokes? NO Seat belt? YES Bike/sport helmet? N/A TB exposure? NO Pets in the home? YES dog Guns/firearms in the home? NO Water source: well water CHICKEN POX HISTORY: Patient has had chicken pox TEEN RISK SCREEN: Form not indicated at this visit. VISION Right eye: 20/20 Left eye: 20/20 Both eyes: 20/20 HEARING Done at school REQUIRED VITAL SIGNS COMPLETED: yes BP 110/62 Pulse 76 Temp(Src) 97.6 ??F (36.4 ??C) (Oral) Ht 1.575 m (5' 2) Wt 57.607 kg (127lb) BMI 23.23 kg/m2 LMP 01/09/2011 21.62% of growth percentile based on mbbygfd-svf-qgk. 64.34% of growth percentile based on foamwv-bny-luk. 77.15% of growth percentile based on BMI-for-age. 50.5% systolic and 38.0% diastolic of BP percentile by age, sex, and height. Sports Questionnaire: School: [employer] Grade: 10 Sports: softball 1. no - Has a doctor ever denied or restricted your participation in sports for any reason or told you to give up sports? 2. no - Do you have an ongoing medical condition (like diabetes,asthma, anemia, infections)? 3. no - Are you currently taking any prescription or nonprescription (zoub-bwb-nyrxxcz) medicines orpills? 4. no - Do you have allergies to medicines, pollens, foods or stinging insects? 5. no - Have you ever spent a night in a hospital? 6. no - Have you ever had surgery? 7. no - Have you ever passed out or nearly passed out DURING exercise? 8. no - Have you ever passed out or nearly passed out AFTER exercise? 9. no - Have you ever had discomfort, pain, tightness, or pressure in your chest during exercise? 10.. no - Does your heart race or skip beats (irregular beats) during exercise? 11. no - Has a doctor ever told you that you have High Blood Pressure, a Heart Murmur, High Cholesterol, a Heart Infection, Rheumatic Fever or Kawasaki's Disease? 12. no - Has a doctor ever ordered a test for your heart? (for example: ECG, echocardiogram, stress test) 13. no -Do you get lightheaded or feel more short of breath than expected during exercise? 14. no- Have you ever had an unexplained seizure? 15. no - Do you get tired or short of breath more quickly than your friends do during exercise? 16. no- Has any family member or relative of heart problems or had an unexpected or unexplainedsudden before age 50 (including unexplained drowning, unexplained car accident or sudden syndrome)? 17. no - Does anyone in your family have hypertrophic cardiomyopathy, Marfan syndrome, arrhythmogenic right ventricular cardiomyopathy, long QT syndrome, short QT syndrome, Brugada syndrome, or catecholaminergic polymorphic ventricular tachycardia? 18. no - Does anyone in your family have a heart problem, pacemaker, or implanted defibrillator? 19.no- Has anyone in your family had an unexplained fainting, unexplained seizures, or near drowning? 20. no - Have you ever had an injury, like a sprain, muscle or ligament tear or tendonitis, that caused you to miss a practice or game? 21. YES - Have you had any broken or fractured bones, or dislocated joints? What area: Forearm 22. no - Have you had a bone/joint injury that required x-rays, MRI, CT, surgery, injections, rehabilitation, physical therapy, a brace, a cast, or crutches? 23. no - Have you ever had a stress fracture? 24. no - Have you been told that you have or have you had an x-ray for neck instability? 25. no - Do you regularly use a brace, orthotics or other assistive device? 26. no -Do you have a bone, muscle or joint injury that bothers you ? 27. no- Do any of your joints become painful, swollen, feel warm or look red? 28. no- Do you have a history of juvenile arthritis or connective tissue disease? 29. no - Has a doctor ever told you that you have asthma or allergies? 30. no - Do you cough, wheeze, have chest tightness, or have difficulty breathing during or after exercise? 31. no - Is there anyone in your family who has asthma? 32. no - Have you ever used an inhaler or taken asthma medicine? 33. no - Do you develop a rash or hives when you exercise? 34. no - Were you born without or are you missing a kidney, an eye, or any other organ? 35. no- Do you have groin pain or a painful bulge or hernia in the groin area? 36. no - Have you had infectious mononucleosis (mono) within the last month? 37. no - Do you have any rashes, pressure sores, or other skin problems? 38. no - Have you had a herpes or MRSA skin infection? 39. no - Have you ever had a head injury or concussion? 40. no - Have you ever had a hit or blow to the head that caused confusion, prolonged headaches or memory problems? 41. no - Do you have a history of seizure disorder? 42. no - Do you have headaches with exercise? 43. no - Have you ever had numbness, tingling or weakness in your arms or legs after being hit or falling? 44. no - Have you ever been unable to move your arms or legs after being hit or falling? 45. no - Have you ever become ill when exercising in the heat? 46. no -Do you get frequent muscle cramps when exercising? 47. no - Do you or someone in your family has sickle cell trait or disease? 48. no - Have you had any problems with your eyes or vision? 49. no- Have you had any eye injuries? 50. no - Do you wear glasses or contact lenses? 51. no - Do you wear protective eyewear, such as goggles or a face shield? 52. no - Do you worry about your weight? 53. no - Are you trying to or has anyone recommended that you gain or lose weight? 54. no - Are you on a special diet or do you avoid certain types of foods? 55. no - Have you ever had an eating disorder? 56. no - Do you have any concerns that you would like to discuss with a doctor? 57. YES - Have you ever had a menstrual period? 58.How old were you when you had your first menstrual period? 59. How many menstrual periods have you had in the lst year? 12 Staff signature: AN-DIFFUSION FURNACE OPERATOR HEALTH HISTORY SINCE LAST VISIT No surgery, major illness or injury since last physical exam Did have right Salter II fx -treated conservatively Cardiac risk assessment: none Immunization History Administered Date(s) Administered ??? DPT/HIB 1995, 1995, 1995, 04/29/1996 ? ? DTAP (<7y) 04/24/2000 ??? Hepatitis B 08/16/2002 ??? Human Papilloma Virus 02/03/2008, 04/18/2008 ??? IPV 04/24/2000 ??? MMR 04/29/1996, 09/15/2006 ??? OPV 1995, 1995, 04/29/1996 ??? TDAP (ADACEL AGES 11-64) 09/15/2006 ??? Varicella 04/29/1996 Allergies Allergen Reactions ??? No Known Allergies DAILY ACTIVITIES NUTRITION: good appetite, eats variety of foods, dairy/ calcium: skim milk, yogurt and cheese, meat,fruits and vegetables SLEEP No concerns, sleeps well through night ELIMINATION Normal bowel movements and Normal urination EXERCISE/ RECREATION Organized / Team sports: baseball, basketball, hockey and softball Recreational exercise: swimming and running / jogging ACTIVITIES: Rally program at school TV/ Media: < 2 hours/ day EDUCATION / EMPLOYMENT Concerns: no School: [employer] Grade:10 MENTAL HEALTH Concerns: no SEXUALITY Dating: no SUBSTANCE ABUSE Smoking: no Alcohol: no Drugs: no VISION: For details see above, normal HEARING: For details see above, normal-tested at school last month-OK ROS GENERAL: See health history, nutrition and [...] abnormal pigmentation or lesions HEAD: Normocephalic EYES: Sharp optic discs. Pupils equal, round, reactive, Extraocular muscles intact. [...] of motion, no deformities : Exam deferred. SPORTS EXAM: Shoulder: normal Elbow: normal Hand/Wrist: normal Back: normal Quad/Ham: normal Knee: normal Ankle/Feet: normal Heel/Toe: normal Duck walk: normal ANTICIPATORY GUIDANCE The following topics were discussed: SOCIAL/ FAMILY: Increased responsibility Parent/ teen communication TV/ media School/ homework Future plans/ College NUTRITION: Healthy food choices Family meals HEALTH / SAFETY: Adequate sleep/ exercise Dental care Drugs, ETOH, smoking Body image Seat belts Sunscreen/ insect repellent Swimming/ water safety Contact sports Bike/ sport helmets Narayan tevin SEXUALITY: Body changes with puberty Menstruation Dating/ relationships ASSESSMENT 1. Well teen with normal growth and development PLAN Immunizations Reviewed, up to date Menactra today See other orders in EpicCare Referrals/Ongoing Specialty care: No Dental visit recommended: Yes RTC: 18 year [facility] visit documented in this encounter Nursing Notes 02/05/2011 1:30 PM CDT >> CARLTON WILLAMS ThuFeb 05, 2011 3:01 PM Menactra and HPV #3 given, Vaccine information supplied. >> AMBER COLON ThuFeb 05, 2011 1:29 PM Pt here for sports physical. Questioned patient about current smoking habits. Pt. has never smoked. Body mass index is 23.23 kg/(m^2). BP Cuff right Arm med Cuff PULSE regular My Chart: declines documented in this encounter Plan of Treatment Not on filedocumented as of this encounter Visit Diagnoses Diagnosis Routine infant or child health check - P rimary Menactra meningococcal conjugate vaccine Need for other specified prophylactic va ccination against single bacterial disease Need for prophylactic vaccination and in oculation against other viral diseases(V04.89) Need for prophylactic vaccination and in oculation against other viral diseases documented in this encounter Care Teams Mixer Operator Helper Hot Metal Relationship Specialty Start Date End Date Marisela Brito MD PCP - General 12/10/9905/03 documented as of this encounter
--- OUTSIDE RECORDS SUMMARY | 2022-10-10 23:53 | XMS_ITS | Encounter Summary ---
:1995 Author Organization [facility] Address [address] [place] [address] Care Team Providers Name Role Phone Marisela Brito MD Primary Care Provider Unavailable Reason for Visit Reason Onset Date Comments Refill Request 01/05/2015 Encounter Details Date Type Department Care Team Description 01/05/2015 Refill [facility] ysicians Marisela Brito MD Refill Request [address] [place] [address] [address] [place] [address] Social History Tobacco Use Types Packs/Day Years Used Date Smoking Tobacco: Never Smokeless Tobacco: Never Alcohol Use Standard Drinks/Week Comments No 0 (1 standard drink = 0.6 oz pure alcoho l) Sex Assigned at Date Recorded Not on file documented as of this encounter Miscellaneous Notes Telephone Encounter - Denise Huff - 01/08/2015 8:27 AM CST Pharmacy has rx I tried to call the patient but her voice mail was not set up unable to leave a voice mail. Will send a my chart. I also saw that she cancelled her appointment for March. I will remind her that she MUST be seen before the 3 months runs out. ATTENDANT Telephone Encounter - Marsiela Brito MD - 01/07/2015 1:40 PM CST 3 month RX sent to pharmacy on 01/01 Please clarify with pharmacist that they have the three months of refills ATTENDANT Telephone Encounter - Denise Huff - 01/05/2015 3:33 PM CST Patient called and left a msg that she had to change her appointment since that will be when her period is. She is asking for two more months since her appointment in now with you in March. Pending Prescriptions: Disp Refills norethindrone-ethinyl estradiol-iron (GREGORIO*2 Pack*0 Sig: Take 1 tablet by mouth daily Ready to be faxed when Rx is approved. Please return to me and I will call the patient back at [phone]. Thank-You, Denise ATTENDANT documented in this encounter Plan of Treatment Not on filedocumented as of this encounter Visit Diagnoses Diagnosis Contraception - Primary Unspecified contraceptive management documented in this encounter Care Teams Beverage Steward Relationship Specialty Start Date End Date Marisela Brito MD PCP - General 12/10/9905/03 documented as of this encounter
--- OUTSIDE RECORDS SUMMARY | 2022-10-10 23:53 | XMS_ITS | Encounter Summary ---
:1995 Author Organization [facility] Address [address] [facility] [place] [address] Care Team Providers Name Role Phone Marisela Brito MD Primary Care Provider Unavailable Reason for Visit Reason Comments Medication Refill Encounter Details Date Type Department Care Team Description 01/29/2014 Refill [facility] Medication Refill Physicians MD [place] [address] [address] , [id number] [place] [address] [place] [address] [phone] (Wo rk) Social History Tobacco Use Types [...] on filedocumented in this encounter Care Teams Customer Operations Manager Relationship Specialty Start Date End Date Marisela Brito MD PCP - General 12/10/9905/03 documented as of this encounter
--- OUTSIDE RECORDS SUMMARY | 2022-10-10 23:53 | XMS_ITS | Encounter Summary ---
:1995 Author Organization [place] Address [address] [facility] [place] [address] Care Team Providers Name Role Phone Marisela Brito MD Primary Care Provider Unavailable Reason for Visit Reason Comments Recheck Medication bcp check Encounter Details Date Type Department Care Team Description 05/14/2012 Office Visit [place] Prema Tristan, Other general counseling Physicians and advice for [address], contraceptive management [address] (Primary Dx) [place] [address] [phone] Social History Tobacco Use Types Packs/Day Years Used Date Smoking Tobacco: Never Smokeless Tobacco: Never Alcohol Use Standard Drinks/Week Comments No 0 (1 standard drink = 0.6 oz pure alcoho l) Sex Assigned at Date Recorded Not on file documented as of this encounter Last Filed Vital Signs Vital Sign Reading Time Taken Comments Blood Pressure 112/70 05/14/2012 3:19 PM CDT Pulse 80 05/14/2012 3:19 PM CDT Temperature 36.5 ??C (97.7 ??F) 05/14/2012 3:19 PM CDT Respiratory Rate 12 05/14/2012 3:19 PM CDT Oxygen Saturation - - Inhaled Oxygen Concentration - - Weight 57.2 kg (126 lb) 05/14/2012 3:19 PM CDT Height 158.8 cm (5' 2.5) 05/14/2012 3:19 PM CDT Body Mass Index 22.68 05/14/2012 3:19 PM CDT Body Mass Index Percentile 68.23 % 05/14/2012 3:19 PM CD T Growth Chart: [facility] (Girls, 2-20 Years) documented in this encounter Patient Instructions Patient InstructionsPrema Mayberry MD - 05/14/2012 3:38 PM CDT Recheck in 9 months/ Potential medication side effects were discussed with the patient; let me know if any occur. documented in this encounter Progress Notes Prema Mayberry MD - 05/14/2012 3:33 PM CDT SUBJECTIVE: Here to recheck BP on active control packet for 3 months. The patient denies side effects of this medication. Regular menses, light 3-4 day flow, no PMS issues/ Broke up with SO/ never sexually active. No migraine, BP, smoking or clotting history in family. OBJECTIVE: Alert, oriented, well hydrated. Skin turgor normal. BP noted. ASSESSMENT: Other general counseling and advice for contraceptive management (primary encounter diagnosis) Comment: Potential medication side effects were discussed with the patient; let me know if any occur. Plan: norethindrone-ethinyl estradiol (MICROGESTIN 1.5/30) 1.5-30 MG-MCG TABS Barrier protection reviewed/ skin care/ Monitor. Recheck in 9-12 months or prn problems. documented in this encounter Plan of Treatment Not on filedocumented as of this encounter Visit Diagnoses Diagnosis Other general counseling and advice for contraceptive management - Primary documented in this encounter Care Teams Resistance Welding Machine Operator Relationship Specialty Start Date End Date Marisela Brito MD PCP - General 12/10/9905/03 documented as of this encounter
--- OUTSIDE RECORDS SUMMARY | 2022-10-10 23:53 | XMS_ITS | Encounter Summary ---
:1995 Author Organization [place] Address [address] [facility] [place] [address] Care Team Providers Name Role Phone Marisela Brito MD Primary Care Provider Unavailable Reason for Visit Reason Comments Abdominal Pain Encounter Details Date Type Department Care Team Description 06/05/2014 Office Visit [facility] Dereje Russell Abdom inal pain, Physicians MD Altagracia epigastric (Primary [address] Dx) [address] [place] [address] Social History Tobacco Use Types Packs/Day Years Used Date Smoking Tobacco: Never Smokeless Tobacco: Never Alcohol Use Standard Drinks/Week Comments No 0 (1 standard drink = 0.6 oz pure alcoho l) Sex Assigned at Date Recorded Not on file documented as of this encounter Last Filed Vital Signs Vital Sign Reading Time Taken Comments Blood Pressure 118/60 06/05/2014 7:01 PM CDT Pulse 62 06/05/2014 7:01 PM CDT Temperature 36.6 ??C (97.8 ??F) 06/05/2014 7:01 PM CDT Respiratory Rate - - Oxygen Saturation - - Inhaled Oxygen Concentration - - Weight 58.5 kg (129 lb) 06/05/2014 7:01 PM CDT Height 158.8 cm (5' 2.5) 06/05/2014 7:01 PM CDT Body Mass Index 23.22 06/05/2014 7:01 PM CDT documented in this encounter Progress Notes Dereje Russell MD - 06/06/2014 7:56 AM CDT Pt has abdominal pain. Description of pain and story :abdominal pain, epigastric, comes and goes Onset:in last few days Severity grade: Can be bad Location:epigastric Appetite:fine fever:no emesis:no diarrhea:no course of disease:comes and goes pain, seems to make her want to move or bend over, Under lots of stressors she says,now sick uncle, Is this a familiar problem with pt: no Meds taken for this: none Findings by examination Vitals: BP 118/60 Pulse 62 Temp(Src) 97.8 ??F (36.6 ??C) (Oral) Ht 1.588 m (5' 2.5) Wt 58.514 kg (129 lb) BMI 23.2 kg/m2 LMP 04/26/2014 Lungs: Patient does not appear ill or in distress at this time. The chest wall is normal to inspection and palpation. Good excursion bilaterally. Lungs clear to auscultation. Good air movement bilaterally without rales, wheezes, or rhonchi. There is no extra work to breathing, and the voice is normal. Heart: Regular rate and rhythm. S1 and S2 normal, no murmurs, clicks, gallops or rubs. No edema or JVD. Chest is clear; no wheezes or rales. Skin: normal Demeanor:looks fine Careful exam of ribs anteriorly, laterally, and posteriorly, as well as costosternal joints, and areas at tips of floating ribs are fine. Twisting and turning does not cause any pain and no localized discomfort is noted at this time. bowel sounds:ok surgical scars:no Tenderness:no Guarding; no rebound:no comment on labs done:none done ASSESSMENT:really not sure, where to go with this, doubt ulcer, stress??? PLAN: Treatment Plan will consist of: 1. I think we came to the conclusion that we were going to observe and watch to see if anything declares itself and therefore making this complex of complaints more clear. We will redirect our attention and future evaluations to a specific organ sytem should we have a clearer idea as to where and how to proceed. Until that happens, careful observation by the patient and followup as needed is all thatis required at this time. Patient agrees with this approach and fully understands. 2. Can try some ranitadine for a few days 3. May need h pylori test if persists 4. Observe kavon documented in this encounter Nursing Notes Chinyere Donnelly - 06/05/2014 6:59 PM CDT Pt is here with stomach pains the last 6 days. Pt states she has shooting pains in her upper abdomen Pre-visit planning: Colon: na Breast: na Immunizations: [...] as of this encounter Visit Diagnoses Diagnosis Abdominal pain, epigastric - Primary documented in this encounter Care Teams Pilates Coordinator Relationship Specialty Start Date End Date Marisela Brito MD PCP - General 12/10/9905/03 documented as of this encounter
--- OUTSIDE RECORDS SUMMARY | 2022-10-10 23:53 | XMS_ITS | Encounter Summary ---
:1995 Author Organization [place] Address [address] [facility] [place] [address] Care Team Providers Name Role Phone Marisela Brito MD Primary Care Provider Unavailable Reason for Visit Reason Onset Date Comments Refill Request 07/14/2014 Encounter Details Date Type Department Care Team Description 07/14/2014 Refill [facility]sicians Marisela Brito MD Refill Request [address] [place] [address] [address] [place] [address] Social History Tobacco Use Types Packs/Day Years Used Date Smoking Tobacco: Never Smokeless Tobacco: Never Alcohol Use Standard Drinks/Week Comments No 0 (1 standard drink = 0.6 oz pure alcoho l) Sex Assigned at Date Recorded Not on file documented as of this encounter Miscellaneous Notes Telephone Encounter - Denise Huff - 07/15/2014 9:27 AM CDT Patient informed Telephone Encounter - Marisela Brito MD - 07/14/2014 2:14 PM CDT Derm consult recommended if continued concerns Triamcinolone cream refilled Telephone Encounter - Denise Huff - 07/14/2014 12:03 PM CDT Patient's mom called (PMI signed) and states that Yancy was in to see you in May and you gave her cream for a rash. It went away and is now back. They are wondering if she can get a refill of the following medicaiton. Pending Prescriptions: Disp Refills triamcinolone (KENALOG) 0.1 % cream 80 g 0 Sig: Apply sparingly to affected area twice daily for one week Ready to be faxed when Rx is approved. Please close encounter when finished. Denise Martinez documented in this encounter Plan of Treatment Not on filedocumented as of this encounter Visit Diagnoses Diagnosis Dermatitis Contact dermatitis and other eczema, due to unspecified cause documented in this encounter Care Teams Adjunct Phlebotomy Instructor Relationship Specialty Start Date End Date Marisela Brito MD PCP - General 12/10/9905/03 documented as of this encounter
--- OUTSIDE RECORDS SUMMARY | 2022-10-10 23:53 | XMS_ITS | Encounter Summary ---
:1995 Author Organization [place] Address [address] [facility] [place] [address] Care Team Providers Name Role Phone Marisela Brito MD Primary Care Provider Unavailable Encounter Details Date Type Department Care Team Description 01/29/2014 Telephone [facility]sicians Dereje Russell MD [address] [place] [address] [address] [place] [address] Social History Tobacco Use Types Packs/Day Years Used Date Smoking Tobacco: Never Smokeless Tobacco: Never Alcohol Use Standard Drinks/Week Comments No 0 (1 standard drink = 0.6 oz pure alcoho l) Sex Assigned at Date Recorded Not on file documented as of this encounter Miscellaneous Notes Telephone Encounter - Dereje Russell MD - 01/29/2014 10:24 AM CDT Called on Thursday am to refill Control Pills, I did. Has appt with Dr Marisela Brito MD [facility], refilled med for one year documented in this encounter Plan of Treatment Not on filedocumented as of this encounter Visit Diagnoses Diagnosis Other general counseling and advice for contraceptive management - Primary documented in this encounter Care Teams Stem Sizer Relationship Specialty Start Date End Date Marisela Brito MD PCP - General 12/10/9905/03 documented as of this encounter
--- OUTSIDE RECORDS SUMMARY | 2022-10-10 23:53 | XMS_ITS | Encounter Summary ---
:1995 Author Organization [place] Address [address] [facility] [place] [address] Care Team Providers Name Role Phone Marisela Brito MD Primary Care Provider Unavailable Reason for Visit Reason Comments Physical Encounter Details Date Type Department Care Team Description 03/09/2015 Office Visit [facility] Marisela Brito gynecological examination (Primary Dx); Zack Olivera MD Contraception; [address] Dermatitis; [address] Advanced directives, grief counsellor ing/discussion; [place], [place] Runner's knee , right [phone] Social History Tobacco Use Types Packs/Day Years Used Date Smoking Tobacco: Never Smokeless Tobacco: Never Alcohol Use Standard Drinks/Week Comments No 0 (1 standard drink = 0.6 oz pure alcoho l) Sex Assigned at Date Recorded Not on file documented as of this encounter Last Filed Vital Signs Vital Sign Reading Time Taken Comments Blood Pressure 112/72 03/09/2015 1:38 PM CDT Pulse 68 03/09/2015 1:38 PM CDT Temperature - - Respiratory Rate - - Oxygen Saturation - - Inhaled Oxygen Concentration - - Weight 58.2 kg (128 lb 3.2 oz) 03/09/2015 1:38 PM CDT Height 158.8 cm (5' 2.5) 03/09/2015 1:38 PM CDT Body Mass Index 23.07 03/09/2015 1:38 PM CDT documented in this encounter Progress Notes Marisela Brito MD - 03/09/2015 2:03 PM CDT SUBJECTIVE: 20 year old female , colposcopy in 2013 for evaluation of LSIL, presents for follow up pap smear andcontraception refill HPV: vaccine completed STD screen: No Patient Active Problem List Diagnosis ??? Health Senior Living ??? Advanced directives, counseling/discussion Past Surgical History Procedure Laterality Date ??? Dental surgery Current Outpatient Prescriptions Medication ??? norethindrone-ethinyl estradiol-iron (MICROGESTIN FE1.04/21) 1.5-30 MG-MCG tablet ??? triamcinolone (KENALOG) 0.1 % cream No current facility-administered medications for this visit. Review Of Systems Skin: hx of eczema/ uses triamcinolone for flairs Eyes: negative Ears/Nose/Throat: negative Respiratory: No shortness of breath, dyspnea on exertion, cough, or hemoptysis Cardiovascular: negative Gastrointestinal: acute diarrhea illness. Genitourinary: negative Musculoskeletal: low back pain, aggrevated by running, even after purchasing new shoes Neurologic: negative Psychiatric: negative Hematologic/Lymphatic/Immunologic: negative Endocrine: negative OBJECTIVE: BP 112/72 Pulse 68 Ht 1.588 m (5' 2.5) Wt 58.151 kg (128 lb 3.2 oz) BMI 23.06 kg/m2 LMP 02/24/2015 General appearance: Healthy Skin: Normal. No atypical appearing moles on inspection of trunk and extremities. External ears and canals clear bilaterally. TM's normal bilaterally. Nose normal without lesions or discharge. Oropharynx normal. Neck supple without palpable adenopathy. Breasts exam deferred Regular rate and rhythm. S1 and S2 [...] masses or tenderness. Pap obtained and pending. (bleeding of cervix with patulla) Rectal exam: normal Extremities: patellar bursitis/ runners knee No ligamental laxity Assessment (V72.31) Routine gynecological examination (primary encounter diagnosis) Comment: one year follow up for LSIL- post colposcopy Plan: ThinPrep Pap and HPV (mRNA E6/E7) ([employer]) (V25.9) Contraception Comment: Plan: norethindrone-ethinyl estradiol-iron (MICROGESTIN FE1.5/30) 1.5-30 MG-MCG tablet (692.9) Dermatitis Comment: Plan: triamcinolone (KENALOG) 0.1 % cream (V65.49) Advanced directives, counseling/discussion Comment: Plan: (717.7) Runner's knee, right Comment: icing, patella band, rest from running for a couple of weeks Plan: ibuprofen (ADVIL,MOTRIN) 800 MG tablet documented in this encounter Nursing Notes Judith Lorenzo - 03/09/2015 1:39 PM CDT Yancy is here today for a chocolatier phy. She would like to discuss an issue with derm and right knee pain. Pre-visit planning discussed: Immunizations - up to date Mammogram - na Colonoscopy - na Asthma - na PHQ9/ALCON - na Fall Risk - na Questioned patient about current smoking habits. Pt. has never smoked. Body mass index is 23.06 kg/(m^2). BP Cuff right Arm reg Cuff PULSE regular My Chart: accepts documented in this encounter Plan of Treatment Not on filedocumented as of this encounter Procedures Procedure Name Priority Date/Time Associated Diagnosis Comme nts THINPREP PAP RFLX Routine 03/09/2015 2:57 PM Routine gynecolog ical Results for this HPV MRNA E6/E7 CDT examination procedure are in ([employer]) the results section. documented in this encounter Results ThinPrep Pap and HPV (mRNA E6/E7){HPV-REFLEX} ([employer]) (03/09/2015 2:57 PM CDT) [facility] Method Time Signature Clinical PAR0 [facility] LMP 40,415 [facility] Last Pap 32,914 [facility] Prev Bx Dx 41,715 [facility] Source Cervix [facility] Statement of SEE COMMENT [facility] Comment: Specimen processed and examined, but unsatisfactory for evaluation due to an insufficient number of squamous cells. Descriptive Diagnosis SEE COMMENT [facility] Comment: Unable to provide interpretatio n due to unsatisfactory specimen adequacy. Comment Suggest clinical [facility] correlation and follow-up as clinically appropriate Electric Motor Rebuilder: RRD, CT(ASCP) ELISA DI AGNOSTICDAMIEN Review Electric Motor Rebuilder CBN, CT(ASCP) [facility] Specimen Anatomical Collection Method Collection Time Receive d Time (Source) Location / / Volume Laterality Cervical swab 03/09/2015 2:57 PM 03/10/20 15 2:26 (specimen) CDT AM CDT Resulting Agency Comment Performing Organization Information: ? [place] ? [facility] ? [address] [place], [place] [address] ? Josh Blank M.D. Marisela Brito MD LAB - NON-BEAKER NON-BLOOD Performing Organization Address City/State/ZIP Code Phon e Number [facility] [address] [place], [place] [address] [facility] [address] [place], [place] [address] documented in this encounter Visit Diagnoses Diagnosis Routine gynecological examination - Prim jerry Contraception Unspecified contraceptive management Dermatitis Contact dermatitis and other eczema, due to unspecified cause Advanced directives, counseling/discussi on Other specified counseling Runner's knee, right documented in this encounter Care Teams Police Superintendent Relationship Specialty Start Date End Date Marisela Brito MD PCP - General 12/10/9905/03 documented as of this encounter
--- OUTSIDE RECORDS SUMMARY | 2022-10-10 23:53 | XMS_ITS | Encounter Summary ---
:1995 Author Organization [place] Address [address] [facility] [place] [address] Care Team Providers Name Role Phone Marisela Brito MD Primary Care Provider Unavailable Reason for Visit Reason Comments Physical Encounter Details Date Type Department Care Team Description 02/18/2014 Office Visit [facility] Marisela Brito gynecological examination (Primary Dx); Zack Olivera MD Contraception; [address] [place] [address] Tonsillar exudate [address] [place] [address] Social History Tobacco Use Types Packs/Day Years Used Date Smoking Tobacco: Never Smokeless Tobacco: Never Alcohol Use Standard Drinks/Week Comments No 0 (1 standard drink = 0.6 oz pure alcoho l) Sex Assigned at Date Recorded Not on file documented as of this encounter Last Filed Vital Signs Vital Sign Reading Time Taken Comments Blood Pressure 110/70 02/18/2014 9:50 AM CDT Pulse 80 02/18/2014 9:50 AM CDT Temperature 36.6 ??C (97.9 ??F) 02/18/2014 9:50 AM CDT Respiratory Rate - - Oxygen Saturation - - Inhaled Oxygen Concentration - - Weight 58.1 kg (128 lb) 02/18/2014 9:50 AM CDT Height 158.8 cm (5' 2.5) 02/18/2014 9:50 AM CDT Body Mass Index 23.04 02/18/2014 9:50 AM CDT documented in this encounter Patient Instructions Patient InstructionsMarisela Brito MD - 02/18/2014 10:33 AM CDT Take claritin or zyrtec one pill twice a day Two more azithromycin tablets today If rash is confined to extremities only, complete two azithromycin tablets tomorrow documented in this encounter Progress Notes Marisela Brito MD - 02/18/2014 11:34 AM CDT SUBJECTIVE: 19 year old female presents with the following concern: 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 Health Longterm Past Surgical History Procedure Date ??? Dental surgery Family History Problem Relation Age of Onset ??? Alzheimers No family hx of ??? Diabetes No family hx of ??? Cancer No family hx of ??? Heart No family hx of Current Outpatient Prescriptions Medication ??? norethindrone-ethinyl estradiol (ORTHO-NOVUM ) 0.5/0.75/1-35 MG-MCG per tablet ??? azithromycin (ZITHROMAX) 250 MG tablet ??? norethindrone-ethinyl estradiol (MICROGESTIN 1.5/30) 1.5-30 MG-MCG TABS Here with the following concerns: Seen in office yesterday with exudative tonsillitis/ azithromycin initiated (negative mono, high WBCcount) Woke up this morning with a pruritic rash on her arms, ankles/ cheeks are flushed ?? Allergic reaction Her throat, 12 hours after initiating her antibiotic is already feeling better OBJECTIVE: BP 110/70 Pulse 80 Temp 97.9 ??F (36.6 ??C) (Oral) Ht 1.588 m (5' 2.5) Wt 58.06 kg (128 lb) BMI 23.02 kg/m2 LMP 01/18/2014 ? No General appearance: Healthy Skin: pruritic Rash, upper arms, ankles, macular/ possible urticaria. No atypical appearing moles oninspection of trunk and extremities. External ears and canals clear bilaterally. TM's normal bilaterally. Nose normal without lesions or discharge. Oropharynx: tonsillar hypertrophy, improved/ exudates, 50% improved from yesterday. Neck supple with 2+ anterior cervical palpable adenopathy. Breasts are symmetric. No dominant, [...] obtained and pending. Rectal exam: deferred Extremities: no edema Assessment Dermatitis/ possible allergic reaction, possible viral exanthem related to her tonsillitis Repeat mono remains negative Routine PSYCHIATRIC REGISTERED NURSE exam/ refill of BCP, new RX PLAN: See patient instruction Start antihistamines, try to complete zpack if rash is not severe, two tablets today, two in am and be off She has my number to contact me if worsening rash, allergic symptoms documented in this encounter Nursing Notes 02/18/2014 9:45 AM CDT >> ED [place] Sat Feb 18, 2014 9:55 AM Patient is here for a physical. She is also having a reaction to the medication that was prescribed yesterday for her tonsils. She developed a rash all over her body Pre-visit planning: Immunizations: up to date Asthma: na PHQ9/ALCON: na Used regular BP Cuff on pts left [...] >40 Patient's BMI Body mass index is 23.02 kg/(m^2). Http://hin.nhlbi.nih.gov/menuplanner/menu.cgi ETOH screening: Questions: 1-How often do you have a drink containing alcohol? 1 times per month(s) 2-How many drinks containing alcohol do you have on a typical day when you are Drinking? 1 3- How often do you have 5 or more drinks on one occasion? Never @None of the patient's responses to the CAGE screening were positive / Negative CAGE score@ documented in this encounter Plan of Treatment Not on filedocumented as of this encounter Procedures Procedure Name Priority Date/Time Associated Diagnosis Comme nts HC VENOUS COLLECTION Routine 02/18/2014 11:41 Tonsillar exudat e AM CDT CHLAM TRACH RNA TMA Routine 02/18/2014 10:51 Routine gynecolog ical Results for this ([facility]) AM CDT examination procedure are i n the results section. SPECIMEN ID Routine 02/18/2014 10:51 Results for this NOTIFICATION MISSING AM CDT procedu re are in SECOND ID the results section. ZZCL AFF THIN LAY Routine 02/18/2014 10:51 Routine gynecologic al Results for this PAP,DIAG W/HPV REFLEX AM CDT examination proced ure are in the results section. ZZCL AFF MONO SCREEN Routine 02/18/2014 10:31 Tonsillar exudat e Results for this AM CDT procedure are i n the results section. documented in this encounter Results Specimen ID Notification Missing Second (02/18/2014 10:51 AM CDT) P athologist Signature Comment SEE COMMENT [facility] Comment: Only one form of patient ID was present on one or more sample(s); two forms of patient ID are r equired by the [employer] [place] [employer] (CAP). Specimen Anatomical Collection Method Collection Time Receive d Time (Source) Location / / Volume Laterality 02/18/2014 10:51 02/18/2014 AM CDT 10:45 PM CDT Resulting Agency Comment Performing Organization Information: ? [place] ? [facility] ? [address] [place], [place] [address] ? Josh Blank M.D. Marisela Brito MD LAB - BLOOD ORDERABLES Performing Organization Address City/State/ZIP Code Phon e Number ELISA [facility] [address] [place], [place] [address] [facility] [address] [place], [place] [address] Chlamydia Trach RNA TMA (Pap/Swab/Urine)([facility]) (02/18/2014 10:51 AM CDT) [facility] Method Time Signature Chlamydia NOT DETECTED NOT DETECTED [facility] See Note SEE COMMENT [facility] Comment: This test was performed using the APTIMA COMBO2 Assay ([employer] The analytical performance characteristi cs of this assay, when used to test SurePath specim ens have been determined by [facility]. ?? Specimen Anatomical Collection Method Collection Time Receive d Time (Source) Location / / Volume Laterality 02/18/2014 10:51 02/18/2014 AM CDT 10:45 PM CDT Resulting Agency Comment Performing Organization Information: ? [place] ? [facility] ? [address] [place] [address] ? Josh Blank M.D. Marisela Brito MD LAB - NON-BEAKER NON-BLOOD Performing Organization Address City/State/ZIP Code Phon e Number [facility] [address] [place], [place] [address] [facility] [address] [place], [place] [address] (ABNORMAL) HCL THIN LAY PAP,DIAG W/HPV REFLEX ([facility]) (02/18/2014 10:51 AM CDT) [facility] Method Time Signature Clinical PAR0 [facility] LMP 22,614 [facility] Last Pap 32,914 [facility] Prev Bx Dx 32,914 [facility] Source Cervix [facility] Statement of SEE COMMENT [facility] Comment: Satisfactory for evaluation. Endocervical/transformation zone compone nt absent. 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 Comment Suggest clinical correlation Q [facility] and follow-up as clinically appropriate Chrome Plater: ALLY STEELE(ASCP) [facility] Pathologist SEE COMMENT [facility] Comment: Morales Darby M.D. Board Certified in Anatomic Pathology, C linical Pathology and Cytopathology (electronic signature) Specimen Anatomical Collection Method Collection Time Receive d Time (Source) Location / / Volume Laterality 02/18/2014 10:51 02/18/2014 AM CDT 10:45 PM CDT Resulting Agency Comment Performing Organization Information: ? [place] ? [facility] ? [address] [place], [place] [address] ? Marisela Brito MD LABORATORY Performing Organization Address City/[facility] Code Phon e Number [facility] [address] [place], [place] [address] [facility] [address] [facility] [place] [place] [address] CL AFF MONO SCREEN ([facility]) (02/18/2014 10:31 AM CDT) Analysis Performed At Patho logist Time Signature Mononucleosis neg Neg [facility] INTERNAL Screen Marisela Brito MD LABORATORY Performing Organization Address [facility] Phon e Number [facility] INTERNAL documented in this encounter Visit Diagnoses Diagnosis Routine gynecological examination - Prim jerry Contraception Unspecified contraceptive management Tonsillar exudate Other chronic disease of tonsils and my noids documented in this encounter Care Teams Sludge Mill Operator Relationship Specialty Start Date End Date Marisela Brito MD PCP - General 12/10/9905/03 documented as of this encounter
--- OUTSIDE RECORDS SUMMARY | 2022-10-10 23:53 | XMS_ITS | Encounter Summary ---
:1995 Author Organization [place] Address [address] [facility] [place] [address] Care Team Providers Name Role Phone Marisela Brito MD Primary Care Provider Unavailable Reason for Visit Reason Comments Pharyngitis blisters in back of throat Encounter Details Date Type Department Care Team Description 08/20/2013 Office Visit [place] Timmy Ramos Acute phar yngitis Physicians MD [place] (Primary Dx) [address] [place] [address], [address] [address] [phone] Social History Tobacco Use Types Packs/Day Years Used Date Smoking Tobacco: Never Smokeless Tobacco: Never Alcohol Use Standard Drinks/Week Comments No 0 (1 standard drink = 0.6 oz pure alcoho l) Sex Assigned at Date Recorded Not on file documented as of this encounter Last Filed Vital Signs Vital Sign Reading Time Taken Comments Blood Pressure 100/66 08/20/2013 10:26 AM CDT Pulse 76 08/20/2013 10:26 AM CDT Temperature 36.5 ??C (97.7 ??F) 08/20/2013 10:26 AM CDT Respiratory Rate - - Oxygen Saturation - - Inhaled Oxygen Concentration - - Weight 57 kg (125 lb 9.6 oz) 08/20/2013 10:26 AM CDT Height - - Body Mass Index 22.97 02/09/2013 6:02 PM CDT Body Mass Index Percentile 66.68 % 08/20/2013 10:26 AM C DT Growth Chart: CDC (Girls, 2-20 Years) documented in this encounter Progress Notes Timmy Kumar MD - 08/20/2013 10:47 AM CDT SUBJECTIVE: Yancy Clinton is a 18 year old female who complains of nasal congestion, headache, sore throat, dry cough and fatigue for 4 days. She denies a history of productive cough and denies a history of asthma. Patient does not smoke cigarettes. Patient Active Problem List Diagnosis ??? VIRAL WARTS NOS ??? [facility] No past medical history on file. Family History Problem Relation Age of Onset ??? Alzheimers No family hx of ??? Diabetes No family hx of ??? Cancer No family hx of ??? Heart No family hx of History Social History ??? Marital Status: Single Spouse Name: N/A Number of Children: N/A ??? Years of Education: N/A Occupational History ??? Student [employer] Social History Main Topics ??? Smoking status: Never Smoker ??? Smokeless tobacco: Never Used ??? Alcohol Use: No ??? Drug Use: No ??? Sexually Active: No Other Topics Concern ??? Service No ??? Blood Transfusions No ??? Exercise Yes Social History Narrative ??? No narrative on file Past Surgical History Procedure Date ??? Dental surgery Current Outpatient Prescriptions on File Prior to Visit: norethindrone-ethinyl estradiol (MICROGESTIN 1.5/30) 1.5-30 MG-MCG TABS Take 1 tablet by mouth daily. @OB@ Allergies: No known allergies Immunization History Administered Date(s) Administered ??? DPT/HIB 1995, 1995, 1995, 04/29/1996 ? ? DTAP (<7y) 04/24/2000 ??? Hepatitis B 08/16/2002 ??? Human Papilloma Virus 02/03/2008, 04/18/2008, 02/05/2011 ??? IPV 04/24/2000 ??? MMR 04/29/1996, 09/15/2006 ??? Meningococcal (Menactra) 02/05/2011 ??? OPV 1995, 1995, 04/29/1996 ??? TDAP (ADACEL AGES 11-64) 09/15/2006 ??? Varicella Not Indicated - By Hx 12/24/1996 OBJECTIVE:BP 100/66 Pulse 76 Temp 97.7 ??F (36.5 ??C) (Oral) Wt 56.972 kg (125 lb 9.6 oz) LMP 08/15/2013 She appears well, vital signs are as noted by the nurse. Ears normal. Throat and pharynx erythematous with a few petechiae. Neck supple. No adenopathy in the neck. Nose is congested. Sinuses non tender. The chest is clear, without wheezes or rales. ASSESSMENT: Viral upper respiratory illness PLAN: Symptomatic therapy suggested: push fluids, rest and use acetaminophen, ibuprofen as needed. Call orreturn to clinic prn if these symptoms worsen or fail to improve as anticipated. documented in this encounter Nursing Notes 08/20/2013 10:30 AM CDT >> ADEEL GIOVANNY Sat Aug 20, 2013 10:28 AM Patient presents with: Pharyngitis - blisters in back of throat Pre-visit planning discussed: Colonoscopy-na Mammo-na Immunizations-utd Asthma-na PHQ/ALCON-na Questioned patient about current smoking habits. Pt. has never smoked. There is no height on file to calculate BMI. BP Cuff left Arm regular Cuff PULSE regular My Chart: declines Pt refused height due to shoes, unable to calculate BMI. documented in this encounter Plan of Treatment Not on filedocumented as of this encounter Procedures Procedure Name Priority Date/Time Associated Diagnosis Comme nts THROAT CULTURE Routine 08/22/2013 9:06 AM Acute pharyngitis Re sults for this AEROBIC BACTERIAL CDT procedure are in the results section. RAPID STREP SCREEN Routine 08/20/2013 10:39 AM Acute pharyngit is Results for this THROAT SWAB CDT procedure are i n the results section. documented in this encounter Results THROAT CULTURE ([facility]) (08/22/2013 9:06 AM CDT) P athologist Signature Strep Group A NEG [facility] Culture Throat Specimen (Source) Anatomical Location Collection Method / Collectio n Time Received Time / Laterality Volume Specimen from throat (specimen) Timmy Kumar MD LAB - MICRO GENERAL ORDERAB LES Performing Organization Address City/State/ZIP Code Phon e Number [facility] RAPID STREP ([facility]) (08/20/2013 10:39 AM CDT) athologist Signature Rapid Strep A neg neg [facility] Screen Specimen (Source) Anatomical Location Collection Method / Collectio n Time Received Time / Laterality Volume Specimen from throat (specimen) Timmy Kumar MD LAB - MICRO GENERAL ORDERAB LES Performing Organization Address City/State/ZIP Code Phon e Number [facility] INTERNAL documented in this encounter Visit Diagnoses Diagnosis Acute pharyngitis - Primary documented in this encounter Care Teams Flaring Machine Operator Relationship Specialty Start Date End Date Marisela Brito MD PCP - General 12/10/9905/03 documented as of this encounter
--- OUTSIDE RECORDS SUMMARY | 2022-10-10 23:53 | XMS_ITS | Encounter Summary ---
:1995 Author Organization [place] Address [address] [facility] [place] [address] Care Team Providers Name Role Phone Marisela Brito MD Primary Care Provider Unavailable Reason for Referral Specialty Diagnoses / Procedures Referred By Contact Refer red To Contact [facility] [address] [place] [address] Phone: [phone] Fax: [phone] Referral ID Status Reason Start Date Expiration Date Visits Requ ested Visits Authorized Encounter Details Date Type Department Care Team Description 06/26/2008 Orders Only [place] [facility], Provider SCAN JACY RESULTS Physicians (Primary Dx) [address] [place] [address] [address] [place] [address] Social History Tobacco Use Types Packs/Day Years Used Date Smoking Tobacco: Never Alcohol Use Standard Drinks/Week Comments No 0 (1 standard drink = 0.6 oz pure alcoho l) Sex Assigned at Date Recorded Not on file documented as of this encounter Plan of Treatment Not on filedocumented as of this encounter Procedures Procedure Name Priority Date/Time Associated Diagnosis Comme nts ORTHOPEDICS ADULT REFERRAL Routine 06/22/2008 SCANNING RESUL TS documented in this encounter Results CONSULT TO ORTHOPEDICS (06/22/2008) Narrative This result has an attachment that is no t available. Provider Abstract REFERRAL documented in this encounter Visit Diagnoses Diagnosis SCANNING RESULTS - Primary documented in this encounter Care Teams Irrigation Supervisor Relationship Specialty Start Date End Date Marisela Brito MD PCP - General 12/10/9905/03 documented as of this encounter
--- OUTSIDE RECORDS SUMMARY | 2022-10-10 23:53 | XMS_ITS | Encounter Summary ---
:1995 Author Organization [place] Address [address] [place] [address] Care Team Providers Name Role Phone Marisela Brito MD Primary Care Provider Unavailable Reason for Visit Reason Onset Date Comments Medication Question 02/21/2014 med error Encounter Details Date Type Department Care Team Description 02/21/[address] [facility] Marisela Brito, Med ication Question Physicians (med error) [address] [address] Social History Tobacco Use Types Packs/Day Years Used Date Smoking Tobacco: Never Smokeless Tobacco: Never Alcohol Use Standard Drinks/Week Comments No 0 (1 standard drink = 0.6 oz pure alcoho l) Sex Assigned at Date Recorded Not on file documented as of this encounter Miscellaneous Notes Telephone Encounter - Amber Lou - 02/21/2014 2:59 PM CDT Hydroxyzine rx faxed to [facility]. Pt states that itching came back. Telephone Encounter - Amber Lou - 02/21/2014 10:02 AM CDT [facility] called concerned that Hyrdalazine rx was sent in since it is for BP. Informed that it was sent in error. Correct rx was sent to [facility]. Incorrect (hydralazine) rx was sent to [facility] yesterday. D/c in chart again. documented in this encounter Plan of Treatment Not on filedocumented as of this encounter Visit Diagnoses Not on filedocumented in this encounter Care Teams Public Affairs Specialist Relationship Specialty Start Date End Date Marisela Brito MD PCP - General 12/10/9905/03 documented as of this encounter
--- OUTSIDE RECORDS SUMMARY | 2022-10-10 23:53 | XMS_ITS | Encounter Summary ---
:1995 Author Organization [place] Address [address] [facility] [place] [address] Care Team Providers Name Role Phone Marisela Brito MD Primary Care Provider Unavailable Encounter Details Date Type Department Care Team Description 02/19/2014 Telephone [facility]sicians Marisela Brito MD [address] [place] [address] [address] [place] [address] Social History Tobacco Use Types Packs/Day Years Used Date Smoking Tobacco: Never Smokeless Tobacco: Never Alcohol Use Standard Drinks/Week Comments No 0 (1 standard drink = 0.6 oz pure alcoho l) Sex Assigned at Date Recorded Not on file documented as of this encounter Miscellaneous Notes Telephone Encounter - Marisela Brito MD - 02/19/2014 10:38 AM CDT Rash is worsening; ankles swollen; now spread to trunk No swelling lips or tongue No difficulty breathing DC AZITHROMYCIN Zyrtec twice a day Recheck tomorrow in office with repeat CBC, recheck rash/ mono documented in this encounter Plan of Treatment Not on filedocumented as of this encounter Visit Diagnoses Not on filedocumented in this encounter Care Teams Calender Tender Relationship Specialty Start Date End Date Marisela Brito MD PCP - General 12/10/9905/03 documented as of this encounter
--- OUTSIDE RECORDS SUMMARY | 2022-10-10 23:53 | XMS_ITS | Encounter Summary ---
:1995 Author Organization [place] Address [address] [facility] [place] [address] Care Team Providers Name Role Phone Marisela Brito MD Primary Care Provider Unavailable Reason for Visit Reason Comments Derm Problem Encounter Details Date Type Department Care Team Description 02/20/[address] [facility] Marisela Britosasha cachorro due to drug allergy (Primary Dx); Zack Olivera MD Tonsillitis; [address] Contraception [address] [place] [address] Social History Tobacco Use Types Packs/Day Years Used Date Smoking Tobacco: Never Smokeless Tobacco: Never Alcohol Use Standard Drinks/Week Comments No 0 (1 standard drink = 0.6 oz pure alcoho l) Sex Assigned at Date Recorded Not on file documented as of this encounter Last Filed Vital Signs Vital Sign Reading Time Taken Comments Blood Pressure 112/74 02/20/2014 12:24 PM CDT Pulse 80 02/20/2014 12:24 PM CDT Temperature 36.6 ??C (97.8 ??F) 02/20/2014 12:24 PM CDT Respiratory Rate - - Oxygen Saturation - - Inhaled Oxygen Concentration - - Weight 58.1 kg (128 lb) 02/20/2014 12:24 PM CDT Height 158.8 cm (5' 2.5) 02/20/2014 12:24 PM CDT Body Mass Index 23.04 02/20/2014 12:24 PM CDT documented in this encounter Patient Instructions Patient InstructionsMarisela Brito MD - 02/20/2014 12:38 PM CDT Substitute hydralazine for zyrtec, take as needed, every 6 hours Update progress on Thursday documented in this encounter Progress Notes Marisela Brito MD - 02/20/2014 12:40 PM CDT SUBJECTIVE: 19 year old female presents at my request Tonsillitis, treated with azithromycin/ seen on Thursday for a pap smear; had a macular rash on her forearms/ trunk sparing with marked improvement of her tonsillitis with a single dose of azithromycin Not certain if rash was an allergic reaction or related to her underlying infection. Took another two tablets at my request on Thursday/ with worsening rash on Thursday (puffy ankles, itchy rash on pressure areas of her abdomen OBJECTIVE: Tonsils again markedly improved; no exudate on right tonsil, some residual on left Tonsillar size now a third of the size three days ago Urticaria, not controlled with zyrtec (Not able to sleep) WBC improved from 15,000 to 11,000 Anterior cervical Adenopathy, unchanged PLAN: Rx for hydralazine sent to pharmacy rather than hydroxyzine/ she took one tablet; no apparent side effects I have told her that I would refund the cost of the RX sent in error Hydroxysine sent to her pharmacy in [place]/ went to pick it up on Thursday ,not there, but rash is much better. No longer wishes the RX Did not take any additional azithromycin control pill changed / she brings a formulary list She is back at school; she will update her progress by my chart; no new antibiotic prescribed Call back on Thursday documented in this encounter Nursing Notes 02/20/2014 12:15 PM CDT >> STEVIE KING Mon Feb 20, 2014 12:27 PM Yancy is here today for a f/u on rash, allergic reaction to zithromax. Pre-visit planning discussed: Immunizations - up to date Mammogram - na Colonoscopy - na Asthma - na PHQ9/ALCON - na Questioned patient about current smoking habits. Pt. has never smoked. Body mass index is 23.02 kg/(m^2). BP Cuff left Arm reg Cuff PULSE regular My Chart: accepts documented in this encounter Plan of Treatment Not on filedocumented as of this encounter Procedures Procedure Name Priority Date/Time Associated Diagnosis Comme nts ZZCL AFF MONO SCREEN Routine 02/20/2014 12:48 Urticaria due to Results for this PM CDT drug allergy procedure are in Tonsillitis the results section. CL AFF Routine 02/20/2014 12:35 Tonsillitis Results for this HEMOGRAM/PLATE/DIFF PM CDT procedur e are in the results section. HC VENOUS COLLECTION Routine 02/20/2014 12:23 Tonsillitis PM CDT documented in this encounter Results CL AFF MONO SCREEN ([facility]) (02/20/2014 12:48 PM CDT) Analysis Performed At Patho logist Time Signature Mononucleosis NEG Neg [facility] INTERNAL Screen Marisela Brito MD LABORATORY Performing Organization Address City/State/ZIP Code Phon e Number [facility] INTERNAL (ABNORMAL) CL AFF HEMOGRAM/PLATE/DIFF ([facility]) (02/20/2014 12:35 PM CDT) Patholo gist Method Time Signature WBC 11.2 (A) 4.3 - 11 [facility] thous/CU.MM RBC Count 4.46 4.2 - 5.4 [facility] Thous/CU.MM Hemoglobin 13.9 12 - 16 [facility] GM/DL Hematocrit 45.2 38 - 47 % [facility] MCV 101.3 (A) 82 - 100 FL [facility] MCH 31.2 26 - 33 pg [facility]NAL MCHC 30.8 (A) 31 - 36 [facility] PERCENT Platelet Count 245 150 - 375 [facility] 10^9/L % Granulocytes 58.5 % [facility] INTERNAL % Lymphocytes 28.5 % [facility] INTERNAL % Monocytes 13.0 % [facility] INTERNAL Marisela Brito MD LABORATORY Performing Organization Address City/State/ZIP Code Phon e Number [facility] INTERNAL documented in this encounter Visit Diagnoses Diagnosis Urticaria due to drug allergy - Primary Allergic urticaria Tonsillitis Acute tonsillitis Contraception Unspecified contraceptive management documented in this encounter Care Teams Music Producer Relationship Specialty Start Date End Date Marisela Brito MD PCP - General 12/10/9905/03 documented as of this encounter
--- OUTSIDE RECORDS SUMMARY | 2022-10-10 23:53 | XMS_ITS | Encounter Summary ---
:1995 Author Organization [place] Address [address] [facility] [place] [address] Care Team Providers Name Role Phone Marisela Brito MD Primary Care Provider Unavailable Reason for Visit Reason Onset Date Comments Medication Request 02/20/2014 Encounter Details Date Type Department Care Team Description 02/20/2014 Telephone [facility] Marisela Brito, [facility] ication Request Physicians [address] [place] [address] [address] [place] [address] Social History Tobacco Use Types Packs/Day Years Used Date Smoking Tobacco: Never Smokeless Tobacco: Never Alcohol Use Standard Drinks/Week Comments No 0 (1 standard drink = 0.6 oz pure alcoho l) Sex Assigned at Date Recorded Not on file documented as of this encounter Miscellaneous Notes Telephone Encounter - Marisela Brito MD - 02/20/2014 7:53 PM CDT Patient called/ Hydroxyzine sent to [facility] Informed cost of hydralazine will be refunded Took one dose, doing OK She will let me know how she is doing Telephone Encounter - Anandjulianefren Jessica - 02/20/2014 3:26 PM CDT Pt was given Hydralazine for her rash, pharmacy states this is for high blood pressure and CHF. Did you mean to send over hydroxyzine? Please advise. Please fax over correct prescription. Thank you documented in this encounter Plan of Treatment Not on filedocumented as of this encounter Visit Diagnoses Diagnosis Urticaria, unspecified - Primary Rash Rash and other nonspecific skin eruption documented in this encounter Care Teams Dinkey Engine Mechanic Relationship Specialty Start Date End Date Marisela Brito MD PCP - General 12/10/9905/03 documented as of this encounter
--- OUTSIDE RECORDS SUMMARY | 2022-10-10 23:53 | XMS_ITS | Encounter Summary ---
:1995 Author Organization [place] Address [address] [facility] [place] [address] Care Team Providers Name Role Phone Marisela Brito MD Primary Care Provider Unavailable Reason for Visit Reason Comments Imm/Inj Encounter Details Date Type Department Care Team Description 04/18/2008 Allied Health/Nurse Jarod Mckeon MD Imm/Inj Visit Physicians [address] [address] [address] [place] [address] [place], [place] [phone] (Wo rk) [address] [phone] Social History Tobacco Use Types Packs/Day Years Used Date Smoking Tobacco: Never Alcohol Use Standard Drinks/Week Comments No 0 (1 standard drink = 0.6 oz pure alcoho l) Sex Assigned at Date Recorded Not on file documented as of this encounter Nursing Notes 04/18/2008 10:30 AM CDT >> CARLTON Underwood April 18, 2008 10:48 AM Vaccine information supplied. documented in this encounter Plan of Treatment Not on filedocumented as of this encounter Visit Diagnoses Diagnosis Need for prophylactic vaccination and in oculation against other viral diseases(V04.89) - Primary Need for prophylactic vaccination and in oculation against other viral diseases documented in this encounter Care Teams Toll Test Desk Worker Relationship Specialty Start Date End Date Marisela Brito MD PCP - General 12/10/9905/03 documented as of this encounter
--- OUTSIDE RECORDS SUMMARY | 2022-10-10 23:53 | XMS_ITS | Encounter Summary ---
:1995 Author Organization [place] Address [address] [facility] [place] [address] Care Team Providers Name Role Phone Marisela Brito MD Primary Care Provider Unavailable Reason for Visit Reason Comments Derm Problem Encounter Details Date Type Department Care Team Description 05/25/2014 Office Visit [facility] Marisela Brito Dermat itis (Primary Physicians MD Jarod Dx) [address] [place] [address] Social History Tobacco Use Types Packs/Day Years Used Date Smoking Tobacco: Never Smokeless Tobacco: Never Alcohol Use Standard Drinks/Week Comments No 0 (1 standard drink = 0.6 oz pure alcoho l) Sex Assigned at Date Recorded Not on file documented as of this encounter Last Filed Vital Signs Vital Sign Reading Time Taken Comments Blood Pressure 110/70 05/25/2014 6:13 PM CDT Pulse 78 05/25/2014 6:13 PM CDT Temperature 36.7 ??C (98.1 ??F) 05/25/2014 6:13 PM CDT Respiratory Rate - - Oxygen Saturation - - Inhaled Oxygen Concentration - - Weight 58.2 kg (128 lb 6.4 oz) 05/25/2014 6:13 PM CDT Height 157.5 cm (5' 2) 05/25/2014 6:13 PM CDT Body Mass Index 23.48 05/25/2014 6:13 PM CDT documented in this encounter Progress Notes Marisela Brito MD - 05/25/2014 6:23 PM CDT SUBJECTIVE: Rash on buttock intermittently for the past year or two Now ?? Worse with scratching Crusty on the surface Father has eczema/ has been using his cream on her rash (triamcinolone cream) Usually controls it/ but no resolution Sister recently treated for scabies/ Yancy denies rash spreading OBJECTIVE: Erythematous rash right buttock Dry, scaly Few papules in proximity Assessment: Dermatitis ( ?? Secondary infection) PLAN: Recommend topical steroid twice daily for one week Doxycyline: 100 mg bid for ten days Call or return to clinic prn if these symtoms worsen, fail to improve as anticipated, or if new symptoms develop. Derm referral if continued concerns documented in this encounter Nursing Notes Judith Lorenzo - 05/25/2014 6:14 PM CDT Asha is here today for a rash on upper left thigh. Pre-visit planning discussed: Immunizations - up to date Asthma - na PHQ9/ALCON - na Questioned patient about current smoking habits. Pt. has never smoked. Body mass index is 23.48 kg/(m^2). BP Cuff left Arm reg Cuff PULSE regular My Chart: accepts documented in this encounter Plan of Treatment Not on filedocumented as of this encounter Visit Diagnoses Diagnosis Dermatitis - Primary Contact dermatitis and other eczema, due to unspecified cause documented in this encounter Care Teams Sizing Machine Operator Relationship Specialty Start Date End Date Marisela Brito MD PCP - General 12/10/9905/03 documented as of this encounter
--- OUTSIDE RECORDS SUMMARY | 2022-10-10 23:53 | XMS_ITS | Encounter Summary ---
:1995 Author Organization [place] Address [address] [facility] [place] [address] Care Team Providers Name Role Phone Marisela Brito MD Primary Care Provider Unavailable Reason for Visit Reason Onset Date Comments Refill Request 01/26/2013 Encounter Details Date Type Department Care Team Description 01/26/[address] [facility] ysicians Marisela Brito MD Refill Request [address] [place] [address] [address] [place] [address] Social History Tobacco Use Types Packs/Day Years Used Date Smoking Tobacco: Never Smokeless Tobacco: Never Alcohol Use Standard Drinks/Week Comments No 0 (1 standard drink = 0.6 oz pure alcoho l) Sex Assigned at Date Recorded Not on file documented as of this encounter Miscellaneous Notes Telephone Encounter - Denise Huff - 01/26/2013 10:55 AM CST Yancy Clinton is requesting a refill of their BC I will give them a 30 day refill(per protocol) and put a note that they needs to be seen in the office. The pharmacy used is listed. The request has been faxed back with that information. PIECE CHECKER documented in this encounter Plan of Treatment Not on filedocumented as of this encounter Visit Diagnoses Not on filedocumented in this encounter Care Teams Campus Administrative Assistant Relationship Specialty Start Date End Date Marisela Brito MD PCP - General 12/10/9905/03 documented as of this encounter
--- OUTSIDE RECORDS SUMMARY | 2022-10-10 23:53 | XMS_ITS | Encounter Summary ---
:1995 Author Organization [place] Address [address] [facility] [place] [address] Care Team Providers Name Role Phone Marisela Brito MD Primary Care Provider Unavailable Reason for Visit Reason Onset Date Comments Results 06/16/2014 Encounter Details Date Type Department Care Team Description 06/16/2014 Telephone [facility] ysicians Dereje Russell MD Results [address] [place] [address] [address] [place] [address] Social History Tobacco Use Types Packs/Day Years Used Date Smoking Tobacco: Never Smokeless Tobacco: Never Alcohol Use Standard Drinks/Week Comments No 0 (1 standard drink = 0.6 oz pure alcoho l) Sex Assigned at Date Recorded Not on file documented as of this encounter Miscellaneous Notes Telephone Encounter - Grace Colbert - 06/16/2014 9:23 AM CDT No more diarrhea. She is doing much better Telephone Encounter - Dereje Russell MD - 06/16/2014 9:11 AM CDT Let her know results of stool cultures did not show any e coli, How is she doing, with her diarrhea, I may want to talk to Dr Basim Lees, infectious disease trial consultant if she is not ok documented in this encounter Plan of Treatment Not on filedocumented as of this encounter Visit Diagnoses Not on filedocumented in this encounter Care Teams Training Technician Relationship Specialty Start Date End Date Marisela rBito MD PCP - General 12/10/9905/03 documented as of this encounter
--- OUTSIDE RECORDS SUMMARY | 2022-10-10 23:53 | XMS_ITS | Encounter Summary ---
:1995 Author Organization [place] Address [address] [place] [address] Care Team Providers Name Role Phone Marisela Brito MD Primary Care Provider Unavailable Reason for Visit Reason Onset Date Comments UTI 04/26/2015 Encounter Details Date Type Department Care Team Description 04/26/2015 Telephone [facility] ysicians Marisela Brito MD UTI [address] [place] [address] [address] [place] [address] Social History Tobacco Use Types Packs/Day Years Used Date Smoking Tobacco: Never Smokeless Tobacco: Never Alcohol Use Standard Drinks/Week Comments No 0 (1 standard drink = 0.6 oz pure alcoho l) Sex Assigned at Date Recorded Not on file documented as of this encounter Miscellaneous Notes Telephone Encounter - Grace Colbert - 04/26/2015 12:11 PM CDT Yancy Clinton called the clinic support line with the following: States that she thinks she has a UTI. Appointment advised. LMOM, and also noted Pt has OV for this evening. Advised to keep that as well. documented in this encounter Plan of Treatment Not on filedocumented as of this encounter Visit Diagnoses Not on filedocumented in this encounter Care Teams Installation Drafter Relationship Specialty Start Date End Date Marisela Brito MD PCP - General 12/10/9905/03 documented as of this encounter
--- OUTSIDE RECORDS SUMMARY | 2022-10-10 23:54 | XMS_ITS | Encounter Summary ---
:1995 Author Organization [place] Address [address] [facility] [place] [address] Care Team Providers Name Role Phone Marisela Brito MD Primary Care Provider Unavailable Encounter Details Date Type Department Care Team Description 12/13/1999 Orders Only [facility] Dereje Russell MD ENCOUNTER--DISREGARD [address] [place] [address] [address] [place] [address] Social History Tobacco Use Types Packs/Day Years Used Date Smoking Tobacco: Never Assessed Sex Assigned at Date Recorded Not on file documented as of this encounter Progress Notes 12/13/1999 11:59 PM [employer] TILE FLOOR LAYER This encounter was opened in error. Please disregard. documented in this encounter Plan of Treatment Not on filedocumented as of this encounter Visit Diagnoses Diagnosis ERRONEOUS ENCOUNTER--DISREGARD documented in this encounter Care Teams Neonatal Doctor Relationship Specialty Start Date End Date Marisela Brito MD PCP - General 12/10/9905/03 documented as of this encounter
--- OUTSIDE RECORDS SUMMARY | 2022-10-10 23:54 | XMS_ITS | Encounter Summary ---
:1995 Author Organization [place] Address [address] [facility] [place] [address] Care Team Providers Name Role Phone Marisela Brito MD Primary Care Provider Unavailable Reason for Referral Consultation (Routine) - Closed Specialty Diagnoses / Procedures Referred By Contact Refer red To Contact ENT Diagnoses Unspecified hearing loss Dunia Spring MD [address] [facility] [place] [address] Referral ID Status Reason Start Date Expiration Date Visits Requ ested Visits Authorized [id number] Closed 09/20/2004 11/22/2011 1 1 Reason for Visit Reason Comments Monitor Hearing Encounter Details Date Type Department Care Team Description 09/20/2004 Office Visit [facility] Dunia Spring, JONA G LOSS NOS Physicians (Primary Dx) [address] [place], [place] [address] Social History Tobacco Use Types Packs/Day Years Used Date Smoking Tobacco: Never Alcohol Use Standard Drinks/Week Comments No 0 (1 standard drink = 0.6 oz pure alcoho l) Sex Assigned at Date Recorded Not on file documented as of this encounter Last Filed Vital Signs Vital Sign Reading Time Taken Comments Blood Pressure - - Pulse - - Temperature 36.8 ??C (98.2 ??F) 09/20/2004 8:39 AM CDT Respiratory Rate - - Oxygen Saturation - - Inhaled Oxygen Concentration - - Weight 36.7 kg (81 lb) 09/20/2004 8:39 AM CDT Height 132.1 cm (4' 4) 09/20/2004 8:39 AM CDT Body Mass Index 21.06 09/20/2004 8:39 AM CDT Body Mass Index Percentile 91.36 % 09/20/2004 8:39 AM CD T Growth Chart: [facility] (Girls, 2-20 Years) documented in this encounter Progress Notes 09/20/2004 8:50 AM CDT 389.9 HEARING LOSS NOS (primary encounter diagnosis) Note: took school hearing test as teacher complains of her not listening in school. failed at one level. took one here today with loss of hearing to 30 db at 6000 htz. otehrwise normal. has never had audiology consult for this. OBJECTIVE: Temperature 98.2, temperature source Oral, height 4' 4 (1.321m), weight 81 lbs (36.741 kg). gen: pt pleasant, nad heent: nroaml exam Plan: CONSULT TO ENT, HEARING SCREENING eharing test needed for confirmation/reassurance, The patient's parent indicates understanding of these issues and agrees with the plan. documented in this encounter Nursing Notes 09/20/2004 8:50 AM CDT >> EMANUEL KIMBLE I 09/20/04 8:38 am Pt is here for a hearing test. documented in this encounter Plan of Treatment Not on filedocumented as of this encounter Procedures Procedure Name Priority Date/Time Associated Diagnosis Comme nts ADULT OTOLARYNGOLOGY COMPOSITE LAMINATOR Routine 09/20/2004 Hearing Lo ss Nos REFERRAL ZC HEARING SCREENING Routine 09/19/2004 Hearing Loss Nos documented in this encounter Results CONSULT TO ENT (09/20/2004) Dunia Spring MD REFERRAL HEARING SCREENING (09/19/2004) Narrative This result has an attachment that is no t available. Dunia Spring MD PROCEDURES documented in this encounter Visit Diagnoses Diagnosis Unspecified hearing loss - Primary documented in this encounter Care Teams Quilt Maker Relationship Specialty Start Date End Date Marisela Brito MD PCP - General 12/10/9905/03 documented as of this encounter
--- OUTSIDE RECORDS SUMMARY | 2022-10-10 23:54 | XMS_ITS | Encounter Summary ---
:1995 Author Organization [place] Address [address] [facility] [place] [address] Care Team Providers Name Role Phone Marisela Brito MD Primary Care Provider Unavailable Reason for Visit Reason Comments Physical Encounter Details Date Type Department Care Team Description 04/24/2000 Office Visit [facility] Dereje Russell CHILD HEALTH Physicians MD Altagracia EXAM (Primary Dx) [address] [place] [address] Social History Tobacco Use Types Packs/Day Years Used Date Smoking Tobacco: Never Alcohol Use Standard Drinks/Week Comments No 0 (1 standard drink = 0.6 oz pure alcoho l) Sex Assigned at Date Recorded Not on file documented as of this encounter Last Filed Vital Signs Vital Sign Reading Time Taken Comments Blood Pressure 98/46 04/24/2000 2:15 PM CDT Pulse 60 04/24/2000 2:15 PM CDT Temperature 36.5 ??C (97.7 ??F) 04/24/2000 2:15 PM CDT Respiratory Rate 24 04/24/2000 2:15 PM CDT Oxygen Saturation - - Inhaled Oxygen Concentration - - Weight 19.1 kg (42 lb) 04/24/2000 2:15 PM CDT Height 104.1 cm (3' 5) 04/24/2000 2:15 PM CDT Oqxgxk-ggk-Zghsnk Percentile 90.06 % 04/24/2000 2:15 PM CDT Growth Chart: CDC (Girls, 2-20 Years) Body Mass Index 17.57 04/24/2000 2:15 PM CDT Body Mass Index Percentile 91.23 % 04/24/2000 2:15 PM CD T Growth Chart: CDC (Girls, 2-20 Years) documented in this encounter Progress Notes 04/24/2000 2:15 PM CDT SUBJECTIVE: Yancy Clinton is an 5 year old female who presents for pre-school exam. She has been healthy and happy and parents deny any specific problems or concerns. Growth and development has b een normal. No bowel or bladder symptoms. Immunizations are up to date and no adverse vaccine reactio ns are reported. Developmental questionnaire completed and normal. There is no previous medical his tory on file. There is no previous surgical history on file. Meds as of 04/24/2000:none Review of p atient's allergies indicates: No Known Aller* OBJECTIVE: BP 98/46 Pulse 60 Temp 97.7 Resp 2 4 Ht 3' 5 (1.04m) Wt 42 lbs (19.05 kg) Alert, cooperative, well-hydrated. Appears well. Gait: N ormal, including heel, toe, tandem, squat. Skin: Normal. Eyes: Pupils equal, round, reactive to light . EOM's intact. Ears: TM's normal, auditory acuity grossly normal. Mouth: Normal, no dental prosthe ses. Neck: Supple, no adenopathy. Lungs: Clear to auscultation. Breasts: Normal Heart: Regular rate a nd rhythm, no murmurs, clicks, gallops. Peripheral pulses normal. Abdomen: Soft, non-tender, no mas ses or organomegaly. Hernia: None Genitalia: Normal Neuro: Cranial nerves intact, reflexes normal and symmetric. Spine: Normal ASSESSMENT: Satisfactory Kindergarten physical exam PLAN: 1) DTaP, kehinde o 2) Discussed immunizations, growth and development, and school issues. documented in this encounter Plan of Treatment Not on filedocumented as of this encounter Visit Diagnoses Diagnosis Routine or child health check - P rimary documented in this encounter Care Teams Box Storage Worker Relationship Specialty Start Date End Date Marisela Brito MD PCP - General 12/10/9905/03 documented as of this encounter
--- OUTSIDE RECORDS SUMMARY | 2022-10-10 23:54 | XMS_ITS | Encounter Summary ---
:1995 Author Organization [place] Address [address] [facility] [place] [address] Care Team Providers Name Role Phone Marisela Brito MD Primary Care Provider Unavailable Reason for Visit Reason Comments Eye Problem Encounter Details Date Type Department Care Team Description 09/10/2004 Office Visit [facility] INJURY Physicians MD Morales CORNEA (Primary Dx) [address] XXX RETIRED XXX [address], [place] [address] [place], [place] [phone] (Wo rk) Social History Tobacco Use Types Packs/Day Years Used Date Smoking Tobacco: Never Alcohol Use Standard Drinks/Week Comments No 0 (1 standard drink = 0.6 oz pure alcoho l) Sex Assigned at Date Recorded Not on file documented as of this encounter Last Filed Vital Signs Vital Sign Reading Time Taken Comments Blood Pressure 94/58 09/10/2004 10:38 AM CDT Pulse - - Temperature 35.9 ??C (96.6 ??F) 09/10/2004 10:38 AM CDT Respiratory Rate - - Oxygen Saturation - - Inhaled Oxygen Concentration - - Weight 36.7 kg (81 lb) 09/10/2004 10:38 AM CDT Height 133.4 cm (4' 4.5) 09/10/2004 10:38 AM CDT Body Mass Index 20.66 09/10/2004 10:38 AM CDT Body Mass Index Percentile 90.02 % 09/10/2004 10:38 AM C DT Growth Chart: [facility] (Girls, 2-20 Years) documented in this encounter Progress Notes 09/10/2004 10:00 AM CDT SUBJECTIVE: The patient suffered a left corneal abrasion 1 days ago. Mechanism of injury: unknown. OBJECTIVE: She appears well, vitals are normal. Corneal abrasion noted left eye as diagramed . HAM, fundi normal. ASSESSMENT: Corneal abrasion PLAN: ointment inserted, eye is patched, follow up appointment given in 24 hours for re-examinationof the injury. letter for schoold given to the patients GM documented in this encounter Nursing Notes 09/10/2004 10:00 AM CDT >> ANANYA GONG 09/10/04 10:38 am Pt states that she is here for left eye problem. Pt states that two days ago she awoke with her eye pasted shut and itching. Pt was sent home from school yesterday. Today pt has loss of vision and it is painful. documented in this encounter Plan of Treatment Not on filedocumented as of this encounter Visit Diagnoses Diagnosis Superficial injury of cornea - Primary documented in this encounter Care Teams Sand Plant Attendant Relationship Specialty Start Date End Date Marisela Brito MD PCP - General 12/10/9905/03 documented as of this encounter
--- OUTSIDE RECORDS SUMMARY | 2022-10-10 23:54 | XMS_ITS | Encounter Summary ---
:1995 Author Organization [place] Address [address] [facility] [place] [address] Care Team Providers Name Role Phone Marisela Brito MD Primary Care Provider Unavailable Reason for Visit Reason Comments Well Child Encounter Details Date Type Department Care Team Description 09/15/2006 Office Visit [facility] ROUTIN E CHILD HEALTH EXAM (Primary Dx); Physicians VACCINE [id number]; [address], VACCINE FOR TETANUS/DIPHTERI A [address] [place] [address] [phone] Social History Tobacco Use Types Packs/Day Years Used Date Smoking Tobacco: Never Alcohol Use Standard Drinks/Week Comments No 0 (1 standard drink = 0.6 oz pure alcoho l) Sex Assigned at Date Recorded Not on file documented as of this encounter Last Filed Vital Signs Vital Sign Reading Time Taken Comments Blood Pressure - - Pulse 80 09/15/2006 6:00 PM CDT Temperature 36.8 ??C (98.2 ??F) 09/15/2006 6:00 PM CDT Respiratory Rate 12 09/15/2006 6:00 PM CDT Oxygen Saturation - - Inhaled Oxygen Concentration - - Weight 49.9 kg (110 lb) 09/15/2006 6:00 PM CDT Height 148.6 cm (4' 10.5) 09/15/2006 6:00 PM CDT Body Mass Index 22.6 09/15/2006 6:00 PM CDT Body Mass Index Percentile 89.94 % 09/15/2006 6:00 PM CD T Growth Chart: CDC (Girls, 2-20 Years) documented in this encounter Progress Notes Daria Terrie R - 09/15/2006 6:27 PM CDT Yancy Clinton is an 11 year old female here for a routine health maintenance visit, accompanied by her mother and sister. QUESTIONS/CONCERNS: None FAMILY/ SOCIAL HISTORY Child lives with: sister, brother and step brothers and step father Recent family changes/social stressors: none Family History: No changes since last physical Language(s) spoken at home: Uzbek ENVIRONMENTAL RISK ASSESSMENT Is your child around anyone who smokes? YES real father Seat belt? YES Bike/sport helmet? YES TB exposure? NO Pets in the home? YES Dog, Cat And Bird Guns/firearms in the home? NO Water source: city water and well water CHICKEN POX HISTORY: Previously vaccinated DEVELOPMENTAL/Behavioral Screening form: Form given. VISION: Right Eye - 20/20 Left 20/30 HEARING: n/a REQUIRED VITAL SIGNS COMPLETED: yes Temp (Src) 98.2 (Oral) Ht 4' 10.5 (1.49m) Wt 110 lbs (49.9kg) LMP 09/01/2006 49.07% of growth percentile based on ufmhdmk-ivf-mnw. 83.69% of growth percentile based on wkukab-pgd-wvg. 89.93% of growth percentile based on BMI-for-age. Will you need a sports physical in the next year? NO Staff signature: DANILO/LM HEALTH HISTORY SINCE LAST VISIT No surgery, major illness or injury since last physical exam Cardiac risk assessment: none Immunization History Name Date(s) Administered ??? DPT/HIB 1995, 1995, 1995, 04/29/1996 ? ? DTAP (<7y) 04/24/2000 ??? Hepatitis B 08/16/2002 ??? IPV 04/24/2000 ??? MMR 04/29/1996 ??? OPV 1995, 1995, 04/29/1996 ??? Varicella 04/29/1996 Allergies Allergen Reactions ??? No Known Allergies DAILY ACTIVITIES NUTRITION: good appetite, eats variety of foods SLEEP: No concerns, sleeps well through night ELIMINATION: Normal bowel movements and Normal urination EXERCISE/ RECREATION: Organized / Team sports: basketball, soccer and volleyball Recreational exercise: rides bike (helmet advised) and walking / hiking ACTIVITIES: reads TV/ MEDIA: < 2 hours/ day EDUCATION Concerns: no School: [employer] Grade: 7th MENTAL HEALTH Concerns: no MENSTRUAL HISTORY: MENSTRUATION -YES: Normal and menarche this year SEXUALITY Dating: no Sexual activity: no SUBSTANCE ABUSE Smoking: no Alcohol: no Drugs: no VISION: For details see above, normal HEARING: For details see above, normal ROS GENERAL: See health history, nutrition and [...] alert, in no acute distress. SKIN: Clear. Dry upper outer arms and contact dermatitis noted from metal of her jeans HEAD: Normocephalic EYES: Sharp optic discs. Pupils [...] EXTREMITIES: Full range of motion, no deformities SPORTS EXAM: Shoulder: normal Elbow: normal Hand/Wrist: normal Back: normal Quad/Ham: normal Knee: normal Ankle/Feet: normal Heel/Toe: normal Duck walk: normal ANTICIPATORY GUIDANCE The following topics were discussed: SOCIAL/ FAMILY: Peer pressure Increased responsibility Limits/consequences TV/ media School/ homework NUTRITION: HEALTH/ SAFETY: SEXUALITY: ASSESSMENT 1. Well child with normal growth and development PLAN Immunizations: See orders in EpicCare. Counseling provided regarding the benefits and risks related to the vaccines ordered today. I reviewed the signs and symptoms of adverse effects and when to seek medical care if they should arise. See other orders in EpicCare Referrals/Ongoing Specialty care: No Dental visit recommended: Yes RTC: 1-3 year RHM visit documented in this encounter Nursing Notes 09/15/2006 6:00 PM CDT >> TERRIE GREGORY 09/15/2006 6:27 pm Patient is here for a well child. Questioned patient about current smoking habits. Pt. has never smoked. CLASSIFICATION OF OVERWEIGHT AND OBESITY BY BMI Obesity Class BMI(kg/m2) Underweight < 18.5 Normal 18.5-24.9 Overweight 25.0-29.9 OBESITY I 30.0-34.9 II 35.0-39.9 EXTREME OBESITY III >40 Patient's BMI Body mass index is 22.60 kg/(m^2). Http://hin.nhlbi.nih.gov/menuplanner/menu.cgi documented in this encounter Plan of Treatment Not on filedocumented as of this encounter Procedures Procedure Name Priority Date/Time Associated Comments Diagnosis ZZCL AFF HEMOGLOBIN Routine 09/15/2006 6:59 PM Routine Child R esults for this CDT Health Exam procedure are i n the results section. HC VENOUS COLLECTION Routine 09/15/2006 6:40 PM Routine Child CDT Health Exam documented in this encounter Results HEMOGLOBIN (09/15/2006 6:59 PM CDT) P athologist Signature Hemoglobin 13.5 12 - 16 [facility] GM/DL Prema Mayberry MD LABORATORY Performing Organization Address City/State/ZIP Code Phon e Number [facility] documented in this encounter Visit Diagnoses Diagnosis Routine infant or child health check - P rimary Need for prophylactic vaccination with m rcwirh-hmftj-bmjhnyj (MMR) vaccine Need for prophylactic vaccination with t etanus-diphtheria (Td) documented in this encounter Care Teams Flour Broker Relationship Specialty Start Date End Date Marisela Brito MD PCP - General 12/10/9905/03 documented as of this encounter
--- OUTSIDE RECORDS SUMMARY | 2022-10-10 23:54 | XMS_ITS | Encounter Summary ---
:1995 Author Organization [place] Address [address] [facility] [place] [address] Care Team Providers Name Role Phone Marisela Brito MD Primary Care Provider Unavailable Reason for Visit Reason Comments Headache w/ chills x this morning Pain abd and side x this morning Encounter Details Date Type Department Care Team Description 07/20/2002 Office Visit [facility] Schejuan antonio, Prema E, DEEPTHI [place] RACT INFECTION NOS (Primary Dx); Physicians ABDOMINAL PAIN GENERALIZED; [address], FEVER [address] [place] [address] [phone] Social History Tobacco Use Types Packs/Day Years Used Date Smoking Tobacco: Never Alcohol Use Standard Drinks/Week Comments No 0 (1 standard drink = 0.6 oz pure alcoho l) Sex Assigned at Date Recorded Not on file documented as of this encounter Last Filed Vital Signs Vital Sign Reading Time Taken Comments Blood Pressure - - Pulse - - Temperature 36.7 ??C (98 ??F) 07/20/2002 4:00 PM CDT Respiratory Rate 12 07/20/2002 4:00 PM CDT Oxygen Saturation - - Inhaled Oxygen Concentration - - Weight 27.2 kg (60 lb) 07/20/2002 4:00 PM CDT Height 120.7 cm (3' 11.5) 07/20/2002 4:00 PM CDT Plovzy-mrp-Dbygun Percentile 93.25 % 07/20/2002 4:00 PM CDT Growth Chart: [facility] (Girls, 2-20 Years) Body Mass Index 18.7 07/20/2002 4:00 PM CDT Body Mass Index Percentile 89.97 % 07/20/2002 4:00 PM CD T Growth Chart: [facility] (Girls, 2-20 Years) documented in this encounter Progress Notes 07/20/2002 4:00 PM CDT SUBJECTIVE: Yancy Clinton is an 7 year old female who presents for evaluation of abdominal pain. Characteristics of the pain are as follows: Location: suprapubic without radiation Quality: dull Mark ntity: 3/10 in intensity Chronicity: Onset 1 days ago, gradually worsening since Aggravating factors: nothing Alleviating factors: laying down Associated symptoms: urine smells strong Family history: ne gative No prescriptions on file. Review of patient's allergies indicates: No Known Aller* Tob acco Use: Never Alcohol Use: No Review Of Systems Respiratory: cough with nasal c ongestion Cardiovascular: negative Gastrointestinal: negative Genitourinary: frequency OBJECTIVE: Te mp 98 Ht 3' 11.5 (1.207m) Wt 60 lbs (27.216 kg) General appearance: healthy, alert and no distre ss Hydration: well hydrated Ears: R TM - normal: no effusions, no erythema, and normal landmarks, L T M - normal: no effusions, no erythema, and normal landmarks Nose: clear rhinorrhea Oropharynx: normal Neck: normal, supple and no adenopathy Lungs: normal and clear to auscultation Heart: regular rate a nd rhythm and no murmurs, clicks, or gallops Abdomen: flat and symmetric, normal bowel sounds. Tender ness: present, mild suprapubic Masses: none Organomegaly: none Rectal: deferred. CBC: elevated WBC UA: positive for leukocytes, held for culture. ASSESSMENT/PLAN: 789.07 ABDOMINAL PAIN GENERALIZED ( primary encounter diagnosis) URIN TRACT INFECTION NOS [599.0] Plan: URINALYSIS, ROUTINE, HEMOGRAM, V ENIPUNC FNGR,HEEL,EAR CULTURE, URINE [[id number]] Order #: [id number] Class: [facility] Push fluids. Start AUGMENTIN 400-57 MG OR CHEW, 1 tab PO BID (Twice per day) [id number], D: 20, R: 0. Tylenol prn. R echeck after culture back or sooner if problems. documented in this encounter Plan of Treatment Not on filedocumented as of this encounter Procedures Procedure Name Priority Date/Time Associated Comments Diagnosis ZZCL AFF CULTURE, Routine 07/22/2002 12:27 AM Urin Tract Res ults for this URINE CDT Infection Nos procedure are in Abdominal Pain the results Generalized section. Fever HEMOGRAM Routine 07/20/2002 4:46 PM Abdominal Pain Results for this CDT Generalized procedure are in Fever the results section. CL AFF URINALYSIS, Routine 07/20/2002 4:43 PM Abdominal Pain R esults for this ROUTINE CDT Generalized procedure are in Urin Tract the results Infection Nos section. HC VENOUS COLLECTION Routine 07/20/2002 4:35 PM Abdominal Pain CDT Generalized Fever documented in this encounter Results CULTURE, URINE (07/22/2002 12:27 AM CDT) athologist Signature Status FINAL [facility] Urine Voided <[id number] [facility] Culture CFU/ML Comment: LESS THAN 10,000 CFU/ML ISOLATED. ??MAY REPRESENT NORMAL REGINA CONTAMINATION FROM EXTERNAL GENITA EVER. ??NO FURTHERTESTING PERFORMED. Specimen (Source) Anatomical Location Collection Method / Collectio n Time Received Time / Laterality Volume 07/20/2002 Prema Mayberry MD LABORATORY Performing Organization Address City/State/ZIP Code Phon e Number ELISA BAYSIDE (ABNORMAL) HEMOGRAM (07/20/2002 4:46 PM CDT) P athologist Signature WBC 12.1 (A) 4.3 - 11 [facility] thous/CU.MM RBC Count 4.14 (A) 4.2 - 5.4 [facility] Thous/CU.MM Hemoglobin 12.6 12 - 16 [facility] GM/DL Hematocrit 36.6 (A) 38 - 47 % [facility] MCV 88.5 82 - 100 [place] [facility] MCH 30.6 26 - 33 pg [facility] MCHC 34.5 31 - 36 [facility] PERCENT RDW 11.7 11 - 15 % [facility] Specimen (Source) Anatomical Collection Method Collection Time Re ceived Time Location / / Volume Laterality 07/20/2002 4:46 PM CDT Prema Mayberry MD LABORATORY Performing Organization Address City/State/ZIP Code Phon e Number [facility] URINALYSIS, ROUTINE (07/20/2002 4:43 PM CDT) [facility] Method Time Signature Color Urine Lt yellow [facility] Appearance Urine clear [facility] Glucose Urine neg neg - neg [facility] mg/dL Bilirubin Urine neg neg - neg [facility] Ketones Urine neg neg - neg [facility] mg/dL Specific Pierce 1.005 [facility] Blood Urine trace neg - neg [facility] pH Arterial 7.0 5.0 - 7.0 [facility] Albumin Urine neg neg - neg [facility] mg/dL Urobilinogen 0.2 0.2 - 1.0 [facility] Urine EU/dL Nitrite Urine neg neg - neg [facility] Leukocyte trace neg - neg [facility] Esterase Wbc, Urine Micro 5-10 neg - 2 [facility] RBC Micro Urine 2-5 neg - 2 [facility] EP/HPF mod [facility] Bacteria Urine mod neg - neg [facility] Casts/LPF neg [facility] Miscellaneous neg [facility] Specimen (Source) Anatomical Collection Method Collection Time Re ceived Time Location / / Volume Laterality 07/20/2002 4:43 PM CDT Prema Mayberry MD LABORATORY Performing Organization Address City/[facility] Phon e Number [facility] documented in this encounter Visit Diagnoses Diagnosis Urinary tract infection, site not specif ied - Primary Abdominal pain, generalized Fever and other physiologic disturbances of temperature regulation documented in this encounter Care Teams Senior Quantity Surveyor Relationship Specialty Start Date End Date Marisela Brito MD PCP - General 12/10/9905/03 documented as of this encounter
--- OUTSIDE RECORDS SUMMARY | 2022-10-10 23:54 | XMS_ITS | Encounter Summary ---
:1995 Author Organization [place] Address [address] [facility] [place] [address] Care Team Providers Name Role Phone Marisela Brito MD Primary Care Provider Unavailable Reason for Visit Reason Comments Pharyngitis Encounter Details Date Type Department Care Team Description 08/21/2003 [facility] Dereje Russell STREP SORE THROAT Physicians MD Altagracia (Primary Dx) [address] [place] [address] Social History Tobacco Use Types Packs/Day Years Used Date Smoking Tobacco: Never Alcohol Use Standard Drinks/Week Comments No 0 (1 standard drink = 0.6 oz pure alcoho l) Sex Assigned at Date Recorded Not on file documented as of this encounter Last Filed Vital Signs Vital Sign Reading Time Taken Comments Blood Pressure - - Pulse - - Temperature 38.6 ??C (101.5 ??F) 08/21/2003 6:00 PM CDT Respiratory Rate - - Oxygen Saturation - - Inhaled Oxygen Concentration - - Weight 31.8 kg (70 lb) 08/21/2003 6:00 PM CDT Height - - Body Mass Index - - documented in this encounter Progress Notes 08/21/2003 6:00 PM CDT This patient has had an febrile sore throat without cough or head congestion for 2 days. Ears norm al. Throat slight red, . Neck supple. 3+ adenopathy in anterior regions There is no sign of any cank er sores and she has pus on tonsils, and POSITIVE strept test ASSESSMENT:STREP SORE THROAT [034.0] Per encounter diagnoses. PLAN:AMOXIL 250 MG OR CHEW, one tid , D: 30, R: 0 Per orders. documented in this encounter Nursing Notes 08/21/2003 6:00 PM CDT >> TAMMY DEL VALLE 08/21/2003 6:22 pm pt with positive strep. documented in this encounter Plan of Treatment Not on filedocumented as of this encounter Procedures Procedure Name Priority Date/Time Associated Diagnosis Comme nts HCL STREP A RAPID Routine 08/21/2003 6:13 PM Strep Sore Throat Results for this CDT procedure are i n the results section. documented in this encounter Results (ABNORMAL) STREP A RAPID (08/21/2003 6:13 PM CDT) [facility] Method Time Signature Rapid Strep A positive (A) [facility] Screen Dereje Russell MD LABORATORY Performing Organization Address City/State/ZIP Code Phon e Number [facility] documented in this encounter Visit Diagnoses Diagnosis Streptococcal sore throat - Primary documented in this encounter Care Teams President [employer] Relationship Specialty Start Date End Date Marisela Brito MD PCP - General 12/10/9905/03 documented as of this encounter
--- OUTSIDE RECORDS SUMMARY | 2022-10-10 23:54 | XMS_ITS | Encounter Summary ---
:1995 Author Organization [place] Address [address] [place] [address] Care Team Providers Name Role Phone Marisela Brito MD Primary Care Provider Unavailable Reason for Visit Reason Comments Derm Problem Encounter Details Date Type Department Care Team Description 12/08/2006 Office Visit [facility] Prema Mayberry, VIRAL WARTS NOS Physicians (Primary Dx) [address] [place] [id number] [phone] Social History Tobacco Use Types Packs/Day Years Used Date Smoking Tobacco: Never Alcohol Use Standard Drinks/Week Comments No 0 (1 standard drink = 0.6 oz pure alcoho l) Sex Assigned at Date Recorded Not on file documented as of this encounter Last Filed Vital Signs Vital Sign Reading Time Taken Comments Blood Pressure - - Pulse - - Temperature 36.4 ??C (97.5 ??F) 12/08/2006 6:15 PM PIPE ASSEMBLY WORKER Respiratory Rate 12 12/08/2006 6:15 PM PIPE ASSEMBLY WORKER Oxygen Saturation - - Inhaled Oxygen Concentration - - Weight 50.7 kg (111 lb 12.8 oz) 12/08/2006 6:15 PM PIPE ASSEMBLY WORKER Height 151.1 cm (4' 11.5) 12/08/2006 6:15 PM PIPE ASSEMBLY WORKER Body Mass Index 22.2 12/08/2006 6:15 PM PIPE ASSEMBLY WORKER Body Mass Index Percentile 87.68 % 12/08/2006 6:15 PM CS T Growth Chart: [facility] (Girls, 2-20 Years) documented in this encounter Progress Notes Prema Mayberry - 12/08/2006 6:46 PM CST SUBJECTIVE: 11 year old female needs treatment of wart(s). OBJECTIVE: 12 wart(s) noted on the feet. Size range is 0.25-1.5 cm. ( 8 on right foot, 4 on left) ASSESSMENT: Warts (Verruca Vulgaris) PLAN: Liquid nitrogen was applied to 12 wart(s); the patient will return at 2-4 week intervals for retreatments as needed. ASSEMBLY WORKER documented in this encounter Nursing Notes 12/08/2006 6:15 PM CST >> ANUP SIMS 12/08/2006 6:13 pm Yancy Clinton is here today for wart removal, has them on both feet. Body mass index is 22.21 kg/(m^2). Questioned patient about current smoking habits. Pt. has never smoked. documented in this encounter Plan of Treatment Not on filedocumented as of this encounter Procedures Procedure Name Priority Date/Time Associated Diagnosis Comme nts HC DESTRUCT BENIGN Routine 12/08/2006 6:45 PM PIPE ASSEMBLY WORKER Viral Warts Nos LESION, UP TO 14 documented in this encounter Visit Diagnoses Diagnosis Viral warts, unspecified - Primary documented in this encounter Care Teams Manager Support Services Relationship Specialty Start Date End Date Marisela Brito MD PCP - General 12/10/9905/03 documented as of this encounter
--- OUTSIDE RECORDS SUMMARY | 2022-10-10 23:54 | XMS_ITS | Encounter Summary ---
:1995 Author Organization [place] Address [address] [place] [address] Care Team Providers Name Role Phone Unassigned, Provider Primary Care Provider Unavailable Reason for Visit Reason Comments Routine Visit Encounter Details Date Type Department Care Team Description 08/07/2022 Routine [facility] Services-TARIFF CLERK MD Marisela Visit [address], [address] [facility] [address] [place] [address] [phone] Social History Tobacco Use Types Packs/Day Years Used Date Smoking Tobacco: Never Smokeless Tobacco: Never Alcohol Use Standard Drinks/Week Comments Not Currently 0 (1 standard drink = 0.6 oz pure alcoho l) Sex Assigned at Date Recorded Not on file documented as of this encounter Last Filed Vital Signs Vital Sign Reading Time Taken Comments Blood Pressure 104/55 08/07/2022 10:22 AM CDT Pulse 78 08/07/2022 10:22 AM CDT Temperature - - Respiratory Rate - - Oxygen Saturation - - Inhaled Oxygen Concentration - - Weight 84 kg (185 lb 2 oz) 08/07/2022 10:22 AM CDT Height - - Body Mass Index 33.86 03/10/2022 12:58 PM CDT documented in this encounter Progress Notes Adriana Neely MD - 08/07/2022 10:30 AM CDT [facility] CC: Follow-up care S: Yancy Watts is feeling well today. - What about weight gain? She denies loss of fluid, vaginal bleeding. Good FM. She has been having no regular pelvic pain or cramping. Denies headache, chest pain, shortness of breath. No hematuria, dysuria or other. Some constipation is coming back. complications: - Short IPI (PLTCS 04/22/2021) - H/o prior C/S for Arrest or Descent; desires TOLAC - H/o PUPPS - Class 1 obesity - Varicella NI O: Vitals: 08/07/22 1022 BP: 104/55 Pulse: 78 Constitutional: Well appearing, non-toxic female Psych: A&O x3 See OB flowsheet. A/P: 27 y.o. at 31w1d by LMP c/w 9w5d US presenting for follow-up care. Care: -OB labs reviewed: O positive, Rubella immune, HIV neg, Heb B nonreactive, Heb B immune, RPR negative. -Genetics: Declines -Anatomy ultrasound: Level 2 unremarkable, posterior placenta -Rh positive, Rhogam not indicated -GCT 101, Hgb 13.1 at 27 weeks - s/p COVID x2, booster did not receive, S/p Tdap - Flu today - GBS at 36 weeks - Feed: Breast; will need pump Rx - Contraception: NFP, reviewed importance of IPI of 18 months - Continue PNV H/o PLTCS for AoDescent and non-reassuring status: - S/p counseling re: TOLAC vs. Repeat C/S in the setting of desiring 3-4 children. - Predicted change of vaginal after section: 41% - Desire ; TOLAC consent signed today RTC in 4 weeks, scheduled. Precautions reviewed. Adriana Neely MD P: [phone] 08/07/2022 10:36 AM Dictation Disclaimer: Some notes are completed with voice-recognition dictation software. Typographical errors may result . Please contact me via [employer] staff message if you note any errors requiring clarification. documented in this encounter Plan of Treatment Upcoming Encounters Date Type Specialty Care Team Description 12/02/2022 Appointment Obstetrics & [place] [address] [facility] [address] [place], [place] [address] (Wo rk) documented as of this encounter Visit Diagnoses Diagnosis Supervision of high risk in fi rst trimester - Primary Unspecified high-risk Encounter for immunization Need for other specified prophylactic va ccination against single bacterial disease Short interval between pregnancies affec ting in first trimester, antepartum History of delivery, currently PUPP (pruritic urticarial papules and pl aques of ) Other specified complication of pregnanc y, unspecified as to episode of care Obesity in Obesity complicating , childbir th, or the puerperium, unspecified as to episode of care or not applicable documented in this encounter Care Teams Scout Leaser Relationship Specialty Start Date End Date Unassigned, Provider PCP - General 08/26/[address] [place] [address] documented as of this encounter
--- OUTSIDE RECORDS SUMMARY | 2022-10-10 23:54 | XMS_ITS | Encounter Summary ---
:1995 Author Organization [place] Address [address] [facility] [place] [address] Care Team Providers Name Role Phone Unavailable Primary Care Provider Unavailable Reason for Visit Reason Comments Mouth/Lip Problem sores/blisters in mouth for 2 days Encounter Details Date Type Department Care Team Description 06/06/1999 Office Visit [facility] Farshad Bella ACUTE PHA RYNGITIS; Physicians MD LUIS MIGUEL Nielsen [address] [place] [address] XXX RETIRED XXX [address] [place], [place] [address] [place], [place] [phone] [address] (Wo rk) Social History Tobacco Use Types Packs/Day Years Used Date Smoking Tobacco: Never Assessed Sex Assigned at Date Recorded Not on file documented as of this encounter Last Filed Vital Signs Vital Sign Reading Time Taken Comments Blood Pressure - - Pulse 75 06/06/1999 9:45 AM CDT Temperature 36.7 ??C (98.1 ??F) 06/06/1999 9:45 AM CDT Respiratory Rate - - Oxygen Saturation - - Inhaled Oxygen Concentration - - Weight 15.9 kg (35 lb) 06/06/1999 9:45 AM CDT Height - - Body Mass Index - - documented in this encounter Progress Notes 06/06/1999 9:45 AM CDT ACUTE PHARYNGITIS [462] THRUSH [112.0] SUBJECTIVE: Yancy Clinton is an 4 year old female who presents for evaluation and treatment of sore throat. Symptoms include sore throat and swollen glands. Onset 6 days, gradually worsening since that time. Known Strep exposure: none. No prescriptions on file. Review of patient's allergies indicates: No Known Aller* Tobacco Use: Not Asked Alcohol Use: Not Asked OBJECTIVE: Temp 98.1 Wt 35 lbs (15.88 kg) General appearance: healthy, alert, no distress, smiling Ears: R TM - normal, L TM - normal Nose: normal Oropharynx: normal, mild erythema, throat culture taken, and thrush present. Neck: normal and small, benign anterior cervical nodes bilaterally Lungs: normal and clear to auscultation and percussion Heart: normal and regular rate and rhythm ASSESSMENT: Acute pharyngitis - r/o Strep Thrush RSS negative Dx: Non-strep pharyngitis Thrush Rx: 1) Symptomatic treatment with fluids, vaporizer, acetaminophen. 2) Recheck as needed for persistence, worsening, appearance of new symptoms. 3) NYSTATIN SUSP [id number] U/ML MT, swish tid for 5 days, D: 30 cc, R: 0 Discussed medication in detail including dosing, side effects, and interactions. Call or return to clinic prn if these symtoms worsen, fail to improve as anticipated, or if new symp toms develop. documented in this encounter Plan of Treatment Not on filedocumented as of this encounter Procedures Procedure Name Priority Date/Time Associated Diagnosis Comme nts HCL STREP A RAPID Routine 06/06/1999 10:15 AM Acute Pharyngiti s Results for this CDT procedure are i n the results section. documented in this encounter Results STREP A ASSAY W/OPTIC (06/06/1999 10:15 AM CDT) P athologist Signature Rapid Strep A negative [facility] Screen Specimen (Source) Anatomical Collection Method Collection Time Re ceived Time Location / / Volume Laterality 06/06/1999 10:15 AM CDT Farshad Bella MD LABORATORY Performing Organization Address City/State/ZIP Code Phon e Number [facility] documented in this encounter Visit Diagnoses Diagnosis Acute pharyngitis Candidiasis of mouth documented in this encounter
--- OUTSIDE RECORDS SUMMARY | 2022-10-10 23:54 | XMS_ITS | Encounter Summary ---
:1995 Author Organization [place] Address [address] [facility] [place] [address] Care Team Providers Name Role Phone Marisela Brito MD Primary Care Provider Unavailable Reason for Visit Reason Comments Pharyngitis Encounter Details Date Type Department Care Team Description 03/24/2003 Office Visit [facility] Combs, ACUTE PHARYNGITIS Physicians (Primary Dx) [address] [place] [address] [address] [facility] [address] [place] [phone] Social History Tobacco Use Types Packs/Day Years Used Date Smoking Tobacco: Never Alcohol Use Standard Drinks/Week Comments No 0 (1 standard drink = 0.6 oz pure alcoho l) Sex Assigned at Date Recorded Not on file documented as of this encounter Last Filed Vital Signs Vital Sign Reading Time Taken Comments Blood Pressure - - Pulse - - Temperature 38.1 ??C (100.5 ??F) 03/24/2003 2:30 PM CDT Respiratory Rate - - Oxygen Saturation - - Inhaled Oxygen Concentration - - Weight 31.3 kg (69 lb) 03/24/2003 2:30 PM CDT Height 125.7 cm (4' 1.5) 03/24/2003 2:30 PM CDT Body Mass Index 19.8 03/24/2003 2:30 PM CDT Body Mass Index Percentile 92.13 % 03/24/2003 2:30 PM CD T Growth Chart: [facility] (Girls, 2-20 Years) documented in this encounter Progress Notes 03/24/2003 2:30 PM CDT ACUTE PHARYNGITIS [462] SUBJECTIVE: Yancy Clinton is a 8 year old female who presents for evalu ation and treatment of sore throat. Symptoms include sore throat, fever, headache and nausea. Onset 6 hours, gradually worsening since that time. Known Strep exposure: household exposure. Review of systems reviewed as below: CONSTITUTIONAL: Denies fevers chills HEENT: as above CV: negative JOSE GS: negative ABD: negative, no GI complaints : no urinary complaints No prescriptions on file. No Known Allergies Social History Marital Status: Single Spouse Name: Years of Education: Number of children: Social History Main Topics Tobacco Use: Never Alcohol Use: No Drug Use: Not Asked Sexually Active: Not Asked Other Topics Concern None on file Social History Narrative None on fi le Exam: Temp 100.5 Ht 4' 1.5 (1.257m) Wt 69 lbs (31.298 kg) General appearance: healthy, a lert and mild distress Ears: R TM - normal, L TM - normal Nose: normal Oropharynx: moderate erythema, petechia on soft palate Neck: supple and small, benign anterior cervical nodes bilaterally Lungs: no rmal Heart: normal ABD: soft, NT, ND, pos BS 462 ACUTE PHARYNGITIS (primary encounter diagnosis) N ote: exam c/w strep, pt took penicillin from sister this am, likely could have altered strep test Chinmay n: STREP A RAPID pen vk. Discussed medication in detail including dosing, side effects, and in teractions. Pt to return to clinic if sx's worsen or not better. documented in this encounter Plan of Treatment Not on filedocumented as of this encounter Procedures Procedure Name Priority Date/Time Associated Diagnosis Comme nts HCL STREP A RAPID Routine 03/24/2003 2:43 PM Acute Pharyngitis Results for this CDT procedure are i n the results section. documented in this encounter Results STREP A RAPID (03/24/2003 2:43 PM CDT) P athologist Signature Rapid Strep A neg [facility] Screen Specimen (Source) Anatomical Collection Method Collection Time Re ceived Time Location / / Volume Laterality 03/24/2003 2:43 PM CDT Dunia Spring MD LABORATORY Performing Organization Address City/State/ZIP Code Phon e Number [facility] documented in this encounter Visit Diagnoses Diagnosis Acute pharyngitis - Primary documented in this encounter Care Teams Skein Yard Drier Relationship Specialty Start Date End Date Marisela Brito MD PCP - General 12/10/9905/03 documented as of this encounter
--- OUTSIDE RECORDS SUMMARY | 2022-10-10 23:54 | XMS_ITS | Encounter Summary ---
:1995 Author Organization [employer] Address [address] [place] [address] Care Team Providers Name Role Phone Unassigned, Provider Primary Care Provider Unavailable Reason for Referral Procedure/Equipment (Routine) - New Request Specialty Diagnoses / Procedures Referred By Contact Refer red To Contact Diagnoses Lactating mother Adriana Neely MD Procedures Electric breast pump - purchase ([id number]) [id number] [facility] [address] [place] [address] Referral ID Status Reason Start Date Expiration Date Visits V isits Requested Authorized [id number] New Request 08/28/2022 11/27/2023 1 1 Reason for Visit Reason Comments Routine Visit Encounter Details Date Type Department Care Team Description 08/28/2022 Routine [facility] Adriana Neely Services-EMBLEM MAKER MD Marisela Visit [address] [address] [address] [address], [address] [place] [address] [phone] Social History Tobacco Use Types Packs/Day Years Used Date Smoking Tobacco: Never Smokeless Tobacco: Never Alcohol Use Standard Drinks/Week Comments Not Currently 0 (1 standard drink = 0.6 oz pure alcoho l) Sex Assigned at Date Recorded Not on file documented as of this encounter Last Filed Vital Signs Vital Sign Reading Time Taken Comments Blood Pressure 113/59 08/28/2022 8:52 AM CDT Pulse 89 08/28/2022 8:52 AM CDT Temperature - - Respiratory Rate - - Oxygen Saturation - - Inhaled Oxygen Concentration - - Weight 85.7 kg (189 lb) 08/28/2022 8:52 AM CDT Height - - Body Mass Index 34.57 03/10/2022 12:58 PM CDT documented in this encounter Patient Instructions AttachmentsThe following attachments cannot be sent through Care Everywhere. : Group B Strep (Persian)documented in this encounter Progress Notes Adriana Neely MD - 08/28/2022 8:45 AM CDT [facility] CC: Follow-up care S: Yancy Watts is feeling well today. - Is in a wedding this weekend She denies loss of fluid, vaginal bleeding. Good FM. She has been having no regular pelvic pain or cramping. Denies headache, chest pain, shortness of breath. No hematuria, dysuria or other. Some constipation, better than before complications: - Short IPI (PLTCS 04/22/2021) - H/o prior C/S for Arrest or Descent; desires TOLAC - H/o PUPPS - Class 1 obesity - Varicella NI O: Vitals: 08/28/22 0852 BP: 113/59 Pulse: 89 Constitutional: Well appearing, non-toxic female Psych: A&O x3 See OB flowsheet. A/P: 27 y.o. at 34w1d by LMP c/w 9w5d US presenting for follow-up care. Care: -OB labs reviewed: O positive, Rubella immune, HIV neg, Heb B nonreactive, Heb B immune, RPR negative. -Genetics: Declines -Anatomy ultrasound: Level 2 unremarkable, posterior placenta -Rh positive, Rhogam not indicated -GCT 101, Hgb 13.1 at 27 weeks - s/p COVID x2, booster did not receive, S/p Tdap - Flu on 08/07/2022 - GBS at 36 weeks - information provided for next visit - Feed: Breast; pump Rx today - Contraception: NFP, reviewed importance of IPI of 18 months - Continue PNV H/o PLTCS for AoDescent and non-reassuring status: - S/p counseling re: TOLAC vs. Repeat C/S in the setting of desiring 3-4 children. - Predicted change of vaginal after section: 41% - Desire ; TOLAC consent signed on 08/07/2022 RTC in 2 weeks, scheduled. Precautions reviewed. Adriana Neely MD P: [phone] 08/25/2022 10:05 AM Dictation Disclaimer: Some notes are completed with voice-recognition dictation software. Typographical errors may result . Please contact me via [employer] staff message if you note any errors requiring clarification. documented in this encounter Plan of Treatment Upcoming Encounters Date Type Specialty Care Team Description 12/02/2022 Appointment Obstetrics & [place] [address] [address] (Wo rk) documented as of this encounter Visit Diagnoses Diagnosis Supervision of high risk in rst trimester - Primary Unspecified high-risk Short interval between pregnancies affec ting in first trimester, antepartum History of delivery, currently Obesity in Obesity complicating , childbir th, or the puerperium, unspecified as to episode of care or not applicable Lactating mother care and examination of lacta ting mother documented in this encounter Care Teams Director Skills Relationship Specialty Start Date End Date Unassigned, Provider PCP - General 08/26/[address] [place] [id number] documented as of this encounter
--- OUTSIDE RECORDS SUMMARY | 2022-10-10 23:54 | XMS_ITS | Encounter Summary ---
:1995 Author Organization [employer] Address [address] [facility] [place] [address] Care Team Providers Name Role Phone Marisela Brito MD Primary Care Provider Unavailable Reason for Visit Reason Comments Derm Problem Encounter Details Date Type Department Care Team Description [facility] [address] XXX NO INFO FOUND [address] [place], [place] [phone] (Work) [phone] Social History Tobacco Use Types Packs/Day Years Used Date Smoking Tobacco: Never Alcohol Use Standard Drinks/Week Comments No 0 (1 standard drink = 0.6 oz pure alcoho l) Sex Assigned at Date Recorded Not on file documented as of this encounter Last Filed Vital Signs Vital Sign Reading Time Taken Comments Blood Pressure - - Pulse - - Temperature 36.4 ??C (97.6 ??F) 02/23/2002 2:15 PM SALES REPRESENTATIVE PUBL[employer] Respiratory Rate 20 02/23/2002 2:15 PM SALES REPRESENTATIVE [employer]ICATION[employer] Oxygen Saturation - - Inhaled Oxygen Concentration - - Weight 27.2 kg (60 lb) 02/23/2002 2:15 PM SALES REPRESENTATIVE PUBLICATIONS Height - - Body Mass Index - - documented in this encounter Progress Notes 02/23/2002 2:15 PM SALES REPRESENTATIVE PUBLICATIONS S: 7 y/o female with one day h/o rash: red, itchy, initially starting on abdomen but extending to trunk and all 4 extremities. Possible exposure = new water softener. ROS: no URI sx. No sob, todd, wheezing or chest pains. No fever, chills, nausea, vomiting or diarrhea. PMH: None O: NAD HEENT: Sclerae clear with no d/c noted; EOMI, PERRLA. External auditory canals and TM's normal bilaterall y. Nares normal bilaterally. Mucous membranes moist and pink; normal oropharynx, normal posterior p harynx. Neck supple with no cervical lymphadenopathy noted. LUNGS: Chest wall normal to inspection and palpation. Good excursion bilaterally. Lungs clear to auscultation. Good air movement bilaterally without rales, wheezes, or rhonchi. COR: Regular rate and rhythm. S1 and S2 normal, no murmurs, cl icks, gallops or rubs. ABD: The abdomen is soft without tenderness, guarding, mass or organomegaly. Bowel sounds are normal. No CVA tenderness. EXT: No c/c/e. SKIN: Fine, rough minimally erythematou s maculopapular rash with scattered excoriations across abdomen, trunk, back, and extensor surfaces o f all 4 extremities. No vesicles, no bullae, no crusts or d/c. A/P: 1) Contact derm --benadryl q4h prn --Warning signs and symptoms reviewed; the patient will observe these symptoms, and report prompt lyany worsening or unexpected persistence. If well, may return prn. --see school note documented in this encounter Nursing Notes 02/23/2002 2:15 PM CST >> KATLIN PLATT 02/23/2002 2:26 pm pt here for rash on body x3D documented in this encounter Plan of Treatment Not on filedocumented as of this encounter Visit Diagnoses Diagnosis Contact dermatitis and other eczema, due to unspecified cause - Primary documented in this encounter Care Teams Diesel Service Apprentice Relationship Specialty Start Date End Date Marisela Brito MD PCP - General 12/10/9905/03 documented as of this encounter
--- OUTSIDE RECORDS SUMMARY | 2022-10-10 23:54 | XMS_ITS | Encounter Summary ---
:1995 Author Organization [employer] Address [address] [facility] [place] [address] Care Team Providers Name Role Phone Marisela Brito MD Primary Care Provider Unavailable Reason for Visit Reason Comments Eye Problem Lt eye, pink eye xthis am, h urts Encounter Details Date Type Department Care Team Description 03/03/2000 Office Visit [facility] Nicola Pastor [facility] [place] [facility] Physicians MD Paco CONJUNCTIVA [address] [place] [phone] (Wo rk) Social History Tobacco Use Types Packs/Day Years Used Date Smoking Tobacco: Never Alcohol Use Standard Drinks/Week Comments No 0 (1 standard drink = 0.6 oz pure alcoho l) Sex Assigned at Date Recorded Not on file documented as of this encounter Last Filed Vital Signs Vital Sign Reading Time Taken Comments Blood Pressure - - Pulse - - Temperature 36.1 ??C (97 ??F) 03/03/2000 9:30 AM CDT Respiratory Rate - - Oxygen Saturation - - Inhaled Oxygen Concentration - - Weight 19.5 kg (43 lb) 03/03/2000 9:30 AM CDT Height - - Body Mass Index - - documented in this encounter Progress Notes 03/03/2000 9:30 AM CDT Patient presents with: Eye Problem - Lt eye, pink eye xthis am, hurts after riding [employer] yesterd ay. OBJECTIVE: Injected sclera, nothing visible though until Fluriscien dye in eye showed uptake medi ally & inferior to cornea. See diagram. May have scratched on something or gotten a foreign body init which is now gone. SULFAC SOLN 10 % OP, one drop left eye four times per day for 5 days, D: 5cc ,R: 0 Recheck prn. documented in this encounter Plan of Treatment Not on filedocumented as of this encounter Visit Diagnoses Diagnosis Superficial injury of conjunctiva documented in this encounter Care Teams Call Out Clerk Relationship Specialty Start Date End Date Marisela Brito MD PCP - General 12/10/9905/03 documented as of this encounter
--- OUTSIDE RECORDS SUMMARY | 2022-10-10 23:54 | XMS_ITS | Encounter Summary ---
:1995 Author Organization [employer] Address [address] [place] [address] Care Team Providers Name Role Phone Unassigned, Provider Primary Care Provider Unavailable Reason for Referral Medication Prior Authorization - Closed Specialty Diagnoses / Procedures Referred By Contact Refer red To Contact Diagnoses Hemorrhoids during [place] third [place] [address] [place] [address] Referral ID Status Reason Start Date Expiration Date Visits Requ ested Visits Authorized [id number] Closed 1 1 Reason for Visit Reason Comments Medication Problems Encounter Details Date Type Department Care Team Description 09/11/2022 Telephone [facility] Adriana Neely on Problems Services-[facility] CENTER NURSE MD Marisela [address] [facility], [id number] [place] [address] [address] [place] [phone] Social History Tobacco Use Types Packs/Day Years Used Date Smoking Tobacco: Never Smokeless Tobacco: Never Alcohol Use Standard Drinks/Week Comments Not Currently 0 (1 standard drink = 0.6 oz pure alcoho l) Sex Assigned at Date Recorded Not on file documented as of this encounter Progress Notes Adriana Neely MD - 09/12/2022 12:27 PM CDT Addended by: ADRIANA MORALES on: 09/12/2022 12:27 PM Modules accepted: Orders documented in this encounter Nursing Notes Beata Church RN - 09/16/2022 4:44 PM CDT Patient returning call. Message from provider given, see note. Patient verbalizes understanding and has no further questions or concerns. Beata Church RN - 09/16/2022 1:07 PM CDT Spoke to pharmacy, has not picked up yet. Third attempt to contact patient to let her know Proctozone cream was sent but if unable to get will need to determine another pharmacy (see provider note). Generic message left on voicemail. Adriana Neely MD to [facility] Triage EO 12:28 PM If this medication does not go through, please call the patient and let her know she needs to try different pharmacy that has more of a selection medications on hand. Please and thank you! Prema Vail - 09/15/2022 2:09 PM CDT Called patient, left message to call the nurse line. Lisa Wylie RN - 09/12/2022 12:46 PM CDT Called pt and LM for her to please call the nurse line back. Please review note below from provider regarding medicaiton Katlin Polanco RN - 09/12/2022 11:12 AM CDT [facility] calling in, states that Anucort-HC Rx sent in today needs PA. Pharmacy states that Proctozone cream would be covered if Rx sent in. Fwd to Dr. Neely in clinic. Beata Church, RN - 09/11/2022 4:24 PM CDT Received RX for phenylephrine (SHERLY-MED) 0.25 % suppository. Pharmacy does not carry and doesn't showthat they can order. They do have Anusol 25 mg suppository on hand. If provider ok with change please send new RX. documented in this encounter Plan of Treatment Upcoming Encounters Date Type Specialty Care Team Description 12/02/2022 Appointment Obstetrics & [place] [address] [address] (Wo rk) documented as of this encounter Visit Diagnoses Diagnosis Hemorrhoids during in third tr imester - Primary documented in this encounter Care Teams Paper Cone Grader Relationship Specialty Start Date End Date Unassigned, Provider PCP - General 08/26/[address] [place] [address] documented as of this encounter
--- OUTSIDE RECORDS SUMMARY | 2022-10-10 23:54 | XMS_ITS | Encounter Summary ---
:1995 Author Organization [employer] Address [address] [facility] [place] [address] Care Team Providers Name Role Phone Marisela Brito MD Primary Care Provider Unavailable Reason for Visit Reason Comments Well Child 4 year old exam Encounter Details Date Type Department Care Team Description 07/22/1999 Office Visit [facility] Dereje Russell CHILD HEALTH Physicians MD Altagracia EXAM [address] [place] [address] Social History Tobacco Use Types Packs/Day Years Used Date Smoking Tobacco: Never Assessed Sex Assigned at Date Recorded Not on file documented as of this encounter Last Filed Vital Signs Vital Sign Reading Time Taken Comments Blood Pressure 90/54 07/22/1999 6:15 PM CDT Pulse - - Temperature - - Respiratory Rate - - Oxygen Saturation - - Inhaled Oxygen Concentration - - Weight 16.3 kg (36 lb) 07/22/1999 6:15 PM CDT Height 99.1 cm (3' 3) 07/22/1999 6:15 PM CDT Gnvkdn-zdh-Kocwco Percentile 78.34 % 07/22/1999 6:15 PM CDT Growth Chart: CDC (Girls, 2-20 Years) Body Mass Index 16.64 07/22/1999 6:15 PM CDT Body Mass Index Percentile 83.42 % 07/22/1999 6:15 PM CD T Growth Chart: CDC (Girls, 2-20 Years) documented in this encounter Progress Notes 07/22/1999 6:15 PM CDT SUBJECTIVE: Yancy Clinton is an 4 year old female who presents for pre-school exam. She has been healthy and parents deny any specific problems or concerns. Growth and development has been normal. Eats good variety of foods. No bowel or bladder symptoms. Immunizations are up to date and no adverse vaccine reactions are reported. Developmental questionnaire completed and normal. There is no previous medical history on file. There is no previous surgical history on file. Meds as of 07/22/1999: NYSTATIN SUSP [id number] U/ML MT, swish tid for 5 days, D: 30 cc, R: 0 Review of patient's allergies indicates: No Known Aller* OBJECTIVE: BP 90/54 Ht 3' 3 (0.99m) Wt 36 lbs (16.33 kg) Alert, cooperative, well-hydrated. Appears well. Gait: Normal, including heel, toe, tandem, squat. Skin: Normal. Eyes: Pupils equal, round, reactive to light. EOM's intact. Ears: TM's normal, auditory acuity grossly normal. Mouth: Normal, no dental prostheses. Neck: Supple, no adenopathy. Lungs: Clear to auscultation. Breasts: Normal Heart: Regular rate and rhythm, no murmurs, clicks, gallops. Peripheral pulses normal. Abdomen: Soft, non-tender, no masses or organomegaly. Hernia: None Genitalia: Normal Neuro: Cranial nerves intact, reflexes normal and symmetric. Spine: Normal ASSESSMENT: Satisfactory pre-school physical exam PLAN: 1) no shots needed 2) Discussed immunizations, growth and development, and school issues. documented in this encounter Plan of Treatment Not on filedocumented as of this encounter Visit Diagnoses Diagnosis Routine or child health check documented in this encounter Care Teams Director State Pharmacy Relationship Specialty Start Date End Date Marisela Brito MD PCP - General 06/25/199912/05 documented as of this encounter
--- OUTSIDE RECORDS SUMMARY | 2022-10-10 23:54 | XMS_ITS | Encounter Summary ---
:1995 Author Organization [employer] Address [address] [facility] [place] [address] Care Team Providers Name Role Phone Marisela Brito MD Primary Care Provider Unavailable Reason for Visit Reason Comments Fever Pharyngitis Sore throat and exposure to strep Encounter Details Date Type Department Care Team Description 12/26/2002 Office Visit [facility] Dunia Spring, ACUTE PHARYNGITIS Physicians (Primary Dx) [address] [facility] [address] [place] [phone] Social History Tobacco Use Types Packs/Day Years Used Date Smoking Tobacco: Never Alcohol Use Standard Drinks/Week Comments No 0 (1 standard drink = 0.6 oz pure alcoho l) Sex Assigned at Date Recorded Not on file documented as of this encounter Last Filed Vital Signs Vital Sign Reading Time Taken Comments Blood Pressure - - Pulse - - Temperature 38.2 ??C (100.7 ??F) 12/26/2002 3:00 PM EXTRUSION MANAGER Respiratory Rate - - Oxygen Saturation - - Inhaled Oxygen Concentration - - Weight 29.5 kg (65 lb) 12/26/2002 3:00 PM EXTRUSION MANAGER Height 121.3 cm (3' 11.75) 12/26/2002 3:00 PM EXTRUSION MANAGER Ysxozs-kxb-Liiadp Percentile 97.09 % 12/26/2002 3:00 PM EXTRUSION MANAGER Growth Chart: [facility] (Girls, 2-20 Years) Body Mass Index 20.04 12/26/2002 3:00 PM EXTRUSION MANAGER Body Mass Index Percentile 93.64 % 12/26/2002 3:00 PM CS T Growth Chart: [facility] (Girls, 2-20 Years) documented in this encounter Progress Notes 12/26/2002 3:00 PM EXTRUSION MANAGER ACUTE PHARYNGITIS [462] SUBJECTIVE: Yancy Clinton is a 7 year old female who presents for evalu ation and treatment of sore throat. Symptoms include sore throat, swollen glands and headache. Onset 2 days, gradually worsening since that time. Known Strep exposure: school exposure. Review of sys tems reviewed as below: CONSTITUTIONAL: Denies fevers chills HEENT: as above CV: negative LUNGS: negative ABD: negative, no GI complaints : no urinary complaints No prescriptions on file. No Known Allergies Social History Marital Status: Single Spouse Name: Years of Education: Number of children: Social History Main Topics To bacco Use: Never Alcohol Use: No Drug Use: Not Asked Sexually Active: No t Asked Other Topics Concern None on file Social History Narrative None on file Exam: Temp 100.7 Ht 3' 11.75 (1.213m) Wt 65 lbs (29.484 kg) General appearance: healthy, al ert and no distress Ears: R TM - normal, L TM - normal Nose: clear rhinorrhea Oropharynx: mild erythe ma, halitosis and exudates present Neck: supple and small, benign anterior cervical nodes bilaterally Lungs: clear to auscultation Heart: regular rate and rhythm ABD: soft, NT, ND, pos BS 462 ACUTE PH ARYNGITIS (primary encounter diagnosis) Note: pos stre[ Plan: STREP A RAPID penicillin 50 mg/k i=[id number] per day for 10 days Pt to return to clinic if sx's worsen or not better. documented in this encounter Plan of Treatment Not on filedocumented as of this encounter Procedures Procedure Name Priority Date/Time Associated Diagnosis Comme nts HCL STREP A RAPID Routine 12/26/2002 3:10 PM Acute Pharyngitis Results for this EXTRUSION MANAGER procedure are i n the results section. documented in this encounter Results (ABNORMAL) STREP A RAPID (12/26/2002 3:10 PM EXTRUSION MANAGER) P athologist Signature Rapid Strep A pos (A) [facility] Screen Specimen (Source) Anatomical Collection Method Collection Time Re ceived Time Location / / Volume Laterality 12/26/2002 3:10 PM EXTRUSION MANAGER Dunia Spring MD LABORATORY Performing Organization Address City/State/ZIP Code Phon e Number [facility] documented in this encounter Visit Diagnoses Diagnosis Acute pharyngitis - Primary documented in this encounter Care Teams News Production Assistant Relationship Specialty Start Date End Date Marisela Brito MD PCP - General 12/10/9905/03 documented as of this encounter
--- OUTSIDE RECORDS SUMMARY | 2022-10-10 23:54 | XMS_ITS | Clinical Summary ---
:1995 Author Organization [facility] Address [address] [place] [address] Care Team Providers Name Role Phone Unassigned, Provider Primary Care Provider Unavailable Source Comments You are receiving this document as you are listed as the primary care provider,follow-up provider, or the patient has been referred to you for consultation.This is in compliance with the Medicare and Medicaid EHR Incentive Program,which states Providers who transition their patient to another setting of careor provider of care or refers their patient to another provider of care shouldprovide summarycare record for each transition of care or referral. [employer] Allergies Active Allergy Reactions Severity Noted Date Comments Azithromycin Rash 09/15/2020 Medications Medication Sig Dispensed Refills Start Date End Date Status Take 1 Tablet by 0 Act malaika vitamin-ferrous mouth daily. fumarate-folic acid (PRENATALPLUS) 27-1 MG tablet cetirizine (ZYRTEC) Take 10 mg by 0 Active 10 MG tablet mouth. Ascorbic Acid 0 Active (VITAMIN C OR) MAGNESIUM OR 0 Active VITAMIN D OR 0 Active phenylephrine Insert 1 12 Suppository 1 09/11/2022 Active (SHERLY-MED) 0.25 % Suppository suppositoryIndicatio rectally two ns: Hemorrhoids times daily as during in needed. third trimester hydrocortisone Insert 1 24 Suppository 1 09/12/2022 Active (ANUCORT-HC) 25 MG Suppository (25 suppositoryIndicatio mg) rectally two ns: Hemorrhoids times daily as during in needed. third trimester hydrocortisone, Insert rectally 28 g 1 09/12/2022 Active Perianal, two times daily (PROCTOSOL-HC) 2.5 % as needed. rectal Indications: creamIndications: Inflamed Inflamed Hemorrhoids Hemorrhoids Active Problems Problem Noted Date Supervision of high risk in first trimester 03/10/2022 Short interval between pregnancies affecting in first trimester, 03/10/2022 antepartum History of delivery, currently 03/10 Estimated Date of Delivery Comments Yes 10/08/2022 Based on last menstr ual period of 01/01/2022 (Exact Date) Resolved Problems Problem Noted Date Resolved Date Cervical cancer screening 06/24/2021 06/24/2021 Overview: CCSM Review: History: 2014: LSIL (age 19) 2015: ASCUS, HPV+ 2016: NILM HPV- 2017: NILM HPV- 2018: NILM HPV- 2020: NILM Plan, per ASCCP guidelines: Repeat cytol ogy with reflex HPV for ASCUS result only in 3 years (2023) COVID-19 affecting in first trimester 02/21/2021 03/10/2022 Vaginismus 11/21/2020 06/11/2021 Encounter for supervision of normal first in secon d 11/21/2020 06/11/2021 trimester Encounters Date Type Specialty Care Team Description 09/30/2022 Routine Obstetrics & O'Dontae, Adriana Routine Pr enatal Visit Gordon Antonio MD 09/25/2022 Routine Obstetrics & O'Dontae, Adriana Routine Pr enatal Visit Gordon Antonio MD (38w 1d) 09/18/2022 Routine Obstetrics & O'Dontae, Adriana Routine Pr enatal Visit Gordon Antonio MD 09/12/2022 Refill Obstetrics & O'Dontae, Adriana Prior Authoriz ation Gordon Antonio MD For Medication 09/11/2022 Routine Obstetrics & O'Dontae, Adriana Routine Pr enatal Visit Gordon Antonio MD 09/11/2022 Orders Only Provider, MD Neena 09/11/2022 Telephone Obstetrics & O'Dontae Adriana Medication Pro blems Gordon Antonio MD 08/28/2022 Routine Obstetrics & O'Dontae, Adriana Routine Pr enatal Visit Gordon Antonio MD 08/07/2022 Routine Obstetrics & O'Dontae, Adriana Routine Pr enatal Visit Gordon Antonio MD 07/10/2022 Routine Obstetrics & O'Dontae, Adriana Routine Pr enatal Visit Gynecology MD Marisela 07/10/2022 Lab Visit Laboratory Supervision of high risk in first trimester from Last 3 Months Immunizations Name Administration Dates Next Due 4vHPV (Gardasil) 02/05/2011, 04/18/2008, 02/03/2008 DTP 04/29/1996, 1995, 1995, 1995 DTaP 04/24/2000 Fluzone Qiv Multidose Vial 0.25 (6-35 09/28/2019 Mos) HepB Ped/Adol (0-18 yrs) 08/16/2002 HepB, Unspecified Formulation 1995, 1995, 1994 Influenza IIV4 (Quadrivalent) 0.5mL 08/07/2022, 10/25/2021, 11/20/2020 (61765) MCV4 (Menactra) 02/05/2011 MMR 09/15/2006, 04/29/1996 OPV, Trivalent (Orimune or tOPV) 04/29/1996, 1995, Pfizer (Comirnaty) COVID-19, 12+ Yrs 11/26/2021, 10/31/2021 Purple Top Tdap 07/10/2022, 02/07/2021, 09/15/2006 Varicella 04/29/1996 Family History Medical History Relation Name Comments Cancer Father Lung (smoking) High Cholesterol Mother Stroke Mother Heat Stroke Cataract Maternal Grandfather Stroke Maternal Grandfather Cancer Paternal Grandfather Cataract Paternal Grandfather Diabetes Paternal Grandfather Glaucoma Paternal Grandfather Blindness Paternal Grandmother blind in on e eye due to RD Cataract Paternal Grandmother Diabetes Paternal Grandmother Glaucoma Paternal Grandmother Retinal Detachment Paternal Grandmother Thyroid Disorder Paternal Grandmother Amblyopia/Strabismus Negative Family History Macular Degeneration Negative Family History Relation Name Status Comments Father Alive Mother Alive Maternal Grandfather Maternal Grandmother Alive Paternal Grandfather Paternal Grandmother Alive Sister Alive Social History Tobacco Use Types Packs/Day Years Used Date Smoking Tobacco: Never Smokeless Tobacco: Never Alcohol Use Standard Drinks/Week Comments Not Currently 0 (1 standard drink = 0.6 oz pure alcoho l) Estimated Date of Delivery Comments Yes 10/08/2022 Based on last menstr ual period of 01/01/2022 (Exact Date) Sex Assigned at Date Recorded Not on file Last Filed Vital Signs Vital Sign Reading Time Taken Comments Blood Pressure 117/75 09/30/2022 8:42 AM GOAL UMPIRE Pulse 98 09/30/2022 8:42 AM GOAL UMPIRE Temperature 36.7 ??C (98 ??F) 06/11/2021 3:50 PM CDT Respiratory Rate - - Oxygen Saturation - - Inhaled Oxygen Concentration - - Weight 88.5 kg (195 lb) 09/30/2022 8:42 AM GOAL UMPIRE Height 157.5 cm (5' 2) 03/10/2022 12:58 PM CDT Body Mass Index 35.67 03/10/2022 12:58 PM CDT Plan of Treatment Upcoming Encounters Date Type Specialty Care Team Description 12/02/2022 Appointment Obstetrics & Gynecology [place], [place] [address] [facility] [address] [address] (Wo rk) Health Maintenance Due Date Last Done Comments Adult Preventive Visit 2013 COVID-19 Vaccine (3 - 01/21/2022 11/26/2021, 10/31/2021 Booster for Pfizer series) Pap 06/11/2024 06/11/2021 DTaP/Tdap/Td (9 - Tdap) 07/10/2032 07/10/2022, 02/07/2021, 09/15/2006, Additional history exists Zoster/Shingles (1 of 2) 2045 IPV (Polio) Aged Out 04/29/1996, 1995, No longe r eligible 1995 based on patient 's age to complete this topic HepB Completed 08/16/2002, 1995, 1995, Additional history exists HPV Vaccine Completed 02/05/2011, 04/18/2008, 02/03/2008 MCV4 Completed 02/05/2011 HIV Screening (Preventive Completed 03/10/2022 Services) Hep C Screening (Preventive Completed 03/10/2022 Services) Influenza Completed 08/07/2022, 10/25/2021, 11/20/2020, Additional history exists HepA Aged Out No longer eligib le based on patient 's age to complete this topic Hib Aged Out No longer eligib le based on patient 's age to complete this topic Pneumococcal Aged Out No longer eligib le based on patient 's age to complete this topic Procedures Procedure Name Priority Date/Time Associated Diagnosis Comme nts GROUP B STREP SCREEN Routine 09/11/2022 9:19 AM Supervision of high Results for this (OB PTS) CDT risk in procedure are in first trimester the results section. ULTRASOUND SC 09/11/2022 Results for th is procedure are i n the results section. OB CLINIC ULTRASOUND Routine 09/11/2022 Supervision of high Results for this LIMITED risk in procedure are in first trimester the results section. RPR WITH REFLEX TO Routine 07/10/2022 11:09 Supervision of hig h Results for this TITER AM CDT risk in procedure are in first trimester the results section. GLUCOSE - 1 HR. P.C. Routine 07/10/2022 11:09 Supervision of h igh Results for this PREG AM CDT risk in procedure are in first trimester the results section. COMPLETE BLOOD Routine 07/10/2022 11:09 Supervision of high Re sults for this COUNT-NO DIFF AM CDT risk in procedure are in first trimester the results section. from Last 3 Months Results Group B Strep Screen (OB Pts) (09/11/2022 9:19 AM CDT) [facility] gist Method Time Signature Group B Strep No Group B 09/14/2022 [facility] Screen Streptococcus 9:29 PM CDT HOSPITAL Isolated Specimen Anatomical Collection Method Collection Time Receive d Time (Source) Location / / Volume Laterality Swab (Source PERINEAL SWAB / Non-blood 09/11/2022 9:19 AM 2021 9:57 Required) Unknown Collection / CDT AM CDT Unknown Adriana Neely MD LAB_1 Performing Organization Address City/State/ZIP Code Phon e Number [address] [phone] OB CLINIC ULTRASOUND LIMITED (09/11/2022) Anatomical Region Laterality Modality Other Impressions 09/11/2022 Cephalic presentation, FHR 150 BPM. ??Gr oss movement appreciated. ??Brief MAURICE assessment with MVP of 2.79 cm. Adriana Neely MD PN CLINIC US ORDERABLES ULTRASOUND SC (09/11/2022) Anatomical Region Laterality Modality Other Narrative This result has an attachment that is no t available. Interface Provider DUMMY/OTHER/AR RPR with Reflex to Titer (07/10/2022 11:09 AM CDT) [facility] Method Time Signature RAPID PLASMA Non Reactive Non 07/12/2022 [place] REAGIN (RPR) Reactive 12:18 AM LABORATORIES CDT Comment: Rapid Plasma Reagin screening test is No n-Reactive. No further reflex testing is required. Performed By: [facility] [address] [place] [address] Relocation Services Specialist: Tong Peralta MD, PhD Specimen Anatomical Collection Method / Collection Time Recei clint Time (Source) Location / Volume Laterality Blood Venipuncture / 07/10/2022 11:09 2 Unknown AM CDT 11:09 AM CDT Adriana Neely MD LAB_1 Performing Organization Address [facility]/State/ZIP Code Phon e Number [facility] [address] [place] [address] [phone] (ABNORMAL) Complete Blood Count-No Diff (07/10/2022 11:09 AM CDT) [facility] Method Time Signature WBC 12.6 (H) 3.5 - 10.5 07/10/2022 [facility] x10(9)/L 1:58 PM CDT LABORATORY RBC 3.99 3.90 - 07/10/2022 [place] 5.03 1:58 PM CDT LABORATORY x10(12)/L Hemoglobin 13.1 12.0 - 07/10/2022 [facility] 15.5 g/dL 1:58 PM CDT LABORATORY HCT 37.2 34.9 - 07/10/2022 [facility] 44.5 % 1:58 PM CDT LABORATORY MCV 93.2 80.0 - 07/10/2022 [facility] 100.0 fL 1:58 PM CDT LABORATORY MCH 32.8 27.6 - 07/10/2022 [facility] 33.3 pg 1:58 PM CDT LABORATORY MCHC 35.2 31.5 - 07/10/2022 [facility] 35.2 g/dL 1:58 PM CDT LABORATORY RDW 13.9 11.9 - 07/10/2022 [facility] 15.5 % 1:58 PM CDT LABORATORY Platelets 227 150 - 450 07/10/2022 [facility] x10(9)/L 1:58 PM CDT LABORATORY Automated NRBC 0 <=0 /100 07/10/2022 [facility] WBC 1:58 PM CDT LABORATORY Specimen Anatomical Collection Method / Collection Time Recei clint Time (Source) Location / Volume Laterality Blood Venipuncture / 07/10/2022 11:09 2 Unknown AM CDT 11:09 AM CDT Adriana Neely MD LAB_1 Performing Organization Address [facility]/ZIP Code Phon e Number [facility] [address] [place], [place] [phone] Glucose - 1 Hr. P.C. Preg (07/10/2022 11:09 AM CDT) P athologist Signature Glucose, 1 101 70 - 135 07/10/2022 [facility] Hour OB mg/dL 5:03 PM CDT LABORATORY Challenge Specimen Anatomical Collection Method / Collection Time Recei clint Time (Source) Location / Volume Laterality Blood Venipuncture / 07/10/2022 11:09 2 Unknown AM CDT 11:09 AM CDT Adriana Neely MD LAB_1 Performing Organization Address City/[facility]/ZIP [facility] Phon e Number [facility] [address] [place], [place] [phone] from Last 3 Months Insurance Payer Benefit Plan Subscriber ID Effective Phone Address Typ e / Group Dates [employer] SELF [id number] 2019-Prese Commercial INSURED nt BCBS BCBS CCS BLUE [id number] 2020-Pre [place] [address] [id number] [place] [address] Care Teams Hot Wire Glass Tube Cutter Relationship Specialty Start Date End Date Unassigned, Provider PCP - General 08/26/[address] [place] [id number]
--- OUTSIDE RECORDS SUMMARY | 2022-10-10 23:54 | XMS_ITS | Encounter Summary ---
:1995 Author Organization [facility] Address [address] [place] [address] Care Team Providers Name Role Phone Unassigned, Provider Primary Care Provider Unavailable Encounter Details Date Type Department Care Team Description 09/11/2022 Orders Only HIM DEPARTMENT Provider, Alondra perez MD Interface provid er interface provider, LEROY [address] Social History Tobacco Use Types Packs/Day Years Used Date Smoking Tobacco: Never Smokeless Tobacco: Never Alcohol Use Standard Drinks/Week Comments Not Currently 0 (1 standard drink = 0.6 oz pure alcoho l) Sex Assigned at Date Recorded Not on file documented as of this encounter Plan of Treatment Upcoming Encounters Date Type Specialty Care Team Description 12/02/2022 Appointment Obstetrics & Gynecology O[place], [place] [id number] [address] (Wo rk) documented as of this encounter Procedures Procedure Name Priority Date/Time Associated Diagnosis Comme nts ULTRASOUND SC 09/11/2022 Results for th is procedure are in the resu lts section. documented in this encounter Results ULTRASOUND SC (09/11/2022) Anatomical Region Laterality Modality Other Narrative This result has an attachment that is no t available. Interface Provider DUMMY/OTHER/AR documented in this encounter Visit Diagnoses Not on filedocumented in this encounter Care Teams Underwriting Support Specialist Relationship Specialty Start Date End Date Unassigned, Provider PCP - General 08/26/[address] [place] [id number] documented as of this encounter
--- OUTSIDE RECORDS SUMMARY | 2022-10-10 23:54 | XMS_ITS | Encounter Summary ---
:1995 Author Organization [place] Address [address] [place] [address] Care Team Providers Name Role Phone Marisela Brito MD Primary Care Provider Unavailable Reason for Visit Reason Comments No Show Encounter Details Date Type Department Care Team Description 09/25/2004 Office Visit [facility] Prema Mayberry [facility] Physicians ENCOUNTER--DISREGARD [address], (Primary Dx) [address] [place] [address] [phone] Social History Tobacco Use Types Packs/Day Years Used Date Smoking Tobacco: Never Alcohol Use Standard Drinks/Week Comments No 0 (1 standard drink = 0.6 oz pure alcoho l) Sex Assigned at Date Recorded Not on file documented as of this encounter Plan of Treatment Not on filedocumented as of this encounter Visit Diagnoses Diagnosis ERRONEOUS ENCOUNTER--DISREGARD - Primary documented in this encounter Care Teams Security Control Center Operator Relationship Specialty Start Date End Date Marisela Brito MD PCP - General 12/10/9905/03 documented as of this encounter
--- OUTSIDE RECORDS SUMMARY | 2022-10-10 23:54 | XMS_ITS | Encounter Summary ---
:1995 Author Organization [facility] Address [address] [place] [address] Care Team Providers Name Role Phone Unassigned, Provider Primary Care Provider Unavailable Reason for Visit Reason Comments Routine Visit Encounter Details Date Type Department Care Team Description 09/11/2022 Routine [facility] Adriana Neely Services-FURNITURE DECALS INSPECTOR MD Marisela Visit [address] [place] [id number] [place] [address], [address] [place] [address] [phone] Social History Tobacco Use Types Packs/Day Years Used Date Smoking Tobacco: Never Smokeless Tobacco: Never Alcohol Use Standard Drinks/Week Comments Not Currently 0 (1 standard drink = 0.6 oz pure alcoho l) Sex Assigned at Date Recorded Not on file documented as of this encounter Last Filed Vital Signs Vital Sign Reading Time Taken Comments Blood Pressure 92/53 09/11/2022 8:52 AM CDT Pulse 92 09/11/2022 8:52 AM CDT Temperature - - Respiratory Rate - - Oxygen Saturation - - Inhaled Oxygen Concentration - - Weight 86.2 kg (190 lb) 09/11/2022 8:52 AM CDT Height - - Body Mass Index 34.75 03/10/2022 12:58 PM CDT documented in this encounter Patient Instructions AttachmentsThe following attachments cannot be sent through Care Everywhere. Hemorrhoids (Serbian)documented in this encounter Progress Notes Adriana Neely MD - 09/11/2022 8:45 AM CDT [facility] CC: Follow-up care S: Yancy Watts is feeling well today. - Hemorrhoids are much worse, the other day she almost vomited secondary to pain - Did have a lot of pubic pressure this past week, with some contractions - mostly this past Thursday.No contractions, some more pressure. She denies loss of fluid, vaginal bleeding. Good FM. Denies headache, chest pain, shortness of breath. No hematuria, dysuria or other. Some constipation. complications: - Short IPI (PLTCS 04/22/2021) - H/o prior C/S for Arrest or Descent; desires TOLAC - H/o PUPPS - Class 1 obesity - Varicella NI O: Vitals: 09/11/22 0852 BP: 92/53 Pulse: 92 Constitutional: Well appearing, non-toxic female Psych: A&O x3 See OB flowsheet. A/P: 27 y.o. at 36w1d by LMP c/w 9w5d US presenting for [...] Tdap - Flu on 08/07/2022 - GBS today - Feed: Breast; pump Rx previously provided - Contraception: NFP, reviewed importance of IPI of 18 months - Continue PNV H/o PLTCS for AoDescent and non-reassuring status: - S/p counseling re: TOLAC vs. Repeat C/S in the setting of desiring 3-4 children. - Predicted change of vaginal after section: 41% - Desire ; TOLAC consent signed on 08/07/2022 Hemorrhoids: - Steroid suppository Rx sent today, if she does not have alleviation of symptoms, will try lidocaine and hydrocortisone ointment combination. RTC in 1 weeks, scheduled. Adriana Neely MD P: [phone] 09/11/2022 9:00 AM Dictation Disclaimer: Some notes are completed with voice-recognition dictation software. Typographical errors may result . Please contact me via [facility] staff message if you note any errors requiring clarification. documented in this encounter Plan of Treatment Upcoming Encounters Date Type Specialty Care Team Description 12/02/2022 Appointment Obstetrics & [place] [id number] [phone] (Wo rk) documented as of this encounter Procedures Procedure Name Priority Date/Time Associated Diagnosis Comme nts GROUP B STREP SCREEN Routine 09/11/2022 9:19 AM Supervision of high Results for this (OB PTS) CDT risk in procedure are in first trimester the results section. OB CLINIC ULTRASOUND Routine 09/11/2022 Supervision of high Results for this LIMITED risk in procedure are in first trimester the results section. documented in this encounter Results Group B Strep Screen (OB Pts) (09/11/2022 9:19 AM CDT) [facility] gist Method Time Signature Group B Strep [...] Organization Address City/State/ZIP Code Phon e Number [address] [address] OB CLINIC ULTRASOUND LIMITED (09/11/2022) Anatomical Region Laterality Modality Other Impressions 09/11/2022 Cephalic presentation, FHR 150 BPM. ??Gr oss movement appreciated. ??Brief MAURICE assessment with MVP of 2.79 cm. Adriana Neely MD PN CLINIC US ORDERABLES documented in this encounter Visit Diagnoses Diagnosis Supervision of high risk in fi rst trimester - Primary Unspecified high-risk Short interval between pregnancies affec ting in first trimester, antepartum History of delivery, currently Obesity in Obesity complicating , childbir th, or the puerperium, unspecified as to episode of care or not applicable Hemorrhoids during in third tr imester documented in this encounter Care Teams Psychologist Personnel Relationship Specialty Start Date End Date Unassigned, Provider PCP - General 08/26/00 [address] [place] [address] documented as of this encounter
--- OUTSIDE RECORDS SUMMARY | 2022-10-10 23:54 | XMS_ITS | Encounter Summary ---
:1995 Author Organization [place] Address [address] [facility] [place] [address] Care Team Providers Name Role Phone Marisela Brito MD Primary Care Provider Unavailable Reason for Visit Reason Comments Imm/Inj Encounter Details Date Type Department Care Team Description 08/16/2002 Allied Health/Nurse [facility] Marisela Brito, Imm/Inj Visit Physicians [address] [place] [address] [address] [place] [address] Social History Tobacco Use Types [...] for prophylactic vaccination and in oculation against viral hepatitis - Primary documented in this encounter Care Teams Interpreter And Translator Relationship Specialty Start Date End Date Marisela Brito MD PCP - General 12/10/9905/03 documented as of this encounter
--- OUTSIDE RECORDS SUMMARY | 2022-10-10 23:54 | XMS_ITS | Encounter Summary ---
:1995 Author Organization [facility] Address [address] [facility] [place] [address] Care Team Providers Name Role Phone Marisela Brito MD Primary Care Provider Unavailable Reason for Visit Reason Comments Monitor Hearing Encounter Details Date Type Department Care Team Description 09/12/2003 Office Visit [facility] [place], Prema Barth, JONA G LOSS NOS (Primary Dx); Physicians ACUTE URI NOS [address] , [facility] [address] [facility] [address] [place] [address] [phone] Social History Tobacco Use Types Packs/Day Years Used Date Smoking Tobacco: Never Alcohol Use Standard Drinks/Week Comments No 0 (1 standard drink = 0.6 oz pure alcoho l) Sex Assigned at Date Recorded Not on file documented as of this encounter Last Filed Vital Signs Vital Sign Reading Time Taken Comments Blood Pressure - - Pulse - - Temperature 36.3 ??C (97.4 ??F) 09/12/2003 6:15 PM CDT Respiratory Rate - - Oxygen Saturation - - Inhaled Oxygen Concentration - - Weight 31.3 kg (69 lb) 09/12/2003 6:15 PM CDT Height 126.4 cm (4' 1.75) 09/12/2003 6:15 PM CDT Body Mass Index 19.6 09/12/2003 6:15 PM CDT Body Mass Index Percentile 89.54 % 09/12/2003 6:15 PM CD T Growth Chart: [facility] (Girls, 2-20 Years) documented in this encounter Progress Notes 09/12/2003 6:15 PM CDT SUBJECTIVE: Here at the request of her school nurse who discovered a hearing loss at 2000 HZ in herl eft ear 08/30/03. Was just finishing her strept throat medication and still complaining of pain with s wallowing and congestion. See last visit. They referred her back to our office per school protocol. OBJECTIVE: Alert, oriented, well hydrated. Skin turgor normal. External ears and canals clear bilat erally. TM's normal bilaterally. Nose normal without lesions ordischarge. Oropharynx normal. Neck funes pple without palpable adenopathy. Chest wall normal to inspection and palpation. Good excursion bilat erally. Lungs clear to auscultation. Good air movement bilaterally without rales, wheezes, or rhonchi . Hearing exam shows hearing above 20 decibels at all 500-8000 HZ ASSESSMENT: HEARING LOSS NOS [389 .9]? URI related PLAN: Form filled out for school nurse to allow her back to school without aides. Will recheck hearing next physical to confirm no change in hearing levels. documented in this encounter Nursing Notes 09/12/2003 6:15 PM CDT >> TERRIE GREGORY 09/12/2003 6:50 pm Patient is here to have her hearing tested the school asked that she have this done. Questioned patient about current smoking habits. Pt. exposed to second hand smoke. Advice given about avoiding second hand smoke documented in this encounter Plan of Treatment Not on filedocumented as of this encounter Procedures Procedure Name Priority Date/Time Associated Diagnosis Comme nts PURE TONE AUDIOMETRY, AIR Routine 09/12/2003 Hearin g Loss Nos Acute Uri Nos documented in this encounter Results PURE TONE AUDIOMETRY, AIR (09/12/2003) Narrative This result has an attachment that is no t available. Prema Mayberry MD PROCEDURES documented in this encounter Visit Diagnoses Diagnosis Unspecified hearing loss - Primary Acute upper respiratory infections of un specified site documented in this encounter Care Teams Nurse Assessor Relationship Specialty Start Date End Date Marisela Brito MD PCP - General 12/10/9905/03 documented as of this encounter
--- OUTSIDE RECORDS SUMMARY | 2022-10-10 23:54 | XMS_ITS | Encounter Summary ---
:1995 Author Organization [email or web address] Address [address] [place] [address] Care Team Providers Name Role Phone Unassigned, Provider Primary Care Provider Unavailable Reason for Visit Reason Comments Routine Visit Encounter Details Date Type Department Care Team Description 09/30/2022 Routine [facility] Adriana Neely Services-ER MEDICAL TECHNICIAN MD Marisela Visit [address] [address] [facility], [address] [place] [address] [phone] Social History Tobacco Use Types Packs/Day Years Used Date Smoking Tobacco: Never Smokeless Tobacco: Never Alcohol Use Standard Drinks/Week Comments Not Currently 0 (1 standard drink = 0.6 oz pure alcoho l) Sex Assigned at Date Recorded Not on file documented as of this encounter Last Filed Vital Signs Vital Sign Reading Time Taken Comments Blood Pressure 117/75 09/30/2022 8:42 AM BREAD PANNER Pulse 98 09/30/2022 8:42 AM BREAD PANNER Temperature - - Respiratory Rate - - Oxygen Saturation - - Inhaled Oxygen Concentration - - Weight 88.5 kg (195 lb) 09/30/2022 8:42 AM BREAD PANNER Height - - Body Mass Index 35.67 03/10/2022 12:58 PM CDT documented in this encounter Progress Notes Adriana Neely MD - 09/30/2022 8:45 AM CST [facility] CC: Follow-up care S: Yancy Stefanie Watts is feeling well today. - Questions about sweep? - Yesterday she did have a VEGA She denies loss of fluid, vaginal bleeding. No regular or painful contractions, intermittent. Good FM. Denies headache, vision changes, chest pain, shortness of breath. No hematuria, dysuria or other -no bowel concerns. complications: - Short IPI (PLTCS 04/22/2021) - H/o prior C/S for Arrest or Descent; desires TOLAC - H/o PUPPS - Class 1 obesity - Varicella NI O: Vitals: 09/30/22 0842 BP: 117/75 Pulse: 98 Constitutional: Well appearing, non-toxic female Psych: A&O x3 See OB flowsheet. A/P: 27 y.o. at 38w2d by LMP c/w 9w5d US presenting for [...] Tdap - Flu on 08/07/2022 - GBS negative - Feed: Breast; pump Rx previously provided - Contraception: NFP, reviewed importance of IPI of 18 months - Continue PNV H/o PLTCS for AoDescent and non-reassuring status: - S/p counseling re: TOLAC vs. Repeat C/S in the setting of desiring 3-4 children. - Predicted change of vaginal after section: 41% - Desire ; TOLAC consent signed on 08/07/2022 Hemorrhoids: - Stable RTC in 1 weeks, scheduled. Numbers and precautions reviewed. Adriana Neely MD P: [phone] 09/26/2022 1:27 PM Dictation Disclaimer: Some notes are completed with voice-recognition dictation software. Typographical errors may result . Please contact me via [employer] staff message if you note any errors requiring clarification. D PANNER documented in this encounter Plan of Treatment Upcoming Encounters Date Type Specialty Care Team Description 12/02/2022 Appointment Obstetrics [place] [address] [address] (Wo rk) documented as of this encounter Visit Diagnoses Diagnosis Supervision of high risk in rst trimester - Primary Unspecified high-risk Short interval between pregnancies affec ting in first trimester, antepartum History of delivery, currently Hemorrhoids during in third tr imester Obesity in Obesity complicating , childbir th, or the puerperium, unspecified as to episode of care or not applicable documented in this encounter Care Teams Ancillary Services Manager Relationship Specialty Start Date End Date Unassigned, Provider PCP - General 08/26/[address] [place] [address] documented as of this encounter
--- OUTSIDE RECORDS SUMMARY | 2022-10-10 23:54 | XMS_ITS | Encounter Summary ---
:1995 Author Organization [employer] Address [address] [place] [address] Care Team Providers Name Role Phone Unassigned, Provider Primary Care Provider Unavailable Reason for Visit Reason Comments Routine Visit Encounter Details Date Type Department Care Team Description 09/18/2022 Routine [facility] Adriana Neely Services-INFANTRY WEAPONS CREWMEMBER MD Marisela Visit [address] [place] [address], [address] [facility] [address] [place] [address] [phone] Social History Tobacco Use Types Packs/Day Years Used Date Smoking Tobacco: Never Smokeless Tobacco: Never Alcohol Use Standard Drinks/Week Comments Not Currently 0 (1 standard drink = 0.6 oz pure alcoho l) Sex Assigned at Date Recorded Not on file documented as of this encounter Last Filed Vital Signs Vital Sign Reading Time Taken Comments Blood Pressure 115/68 09/18/2022 8:48 AM CDT Pulse 80 09/18/2022 8:48 AM CDT Temperature - - Respiratory Rate - - Oxygen Saturation - - Inhaled Oxygen Concentration - - Weight 87.1 kg (192 lb) 09/18/2022 8:48 AM CDT Height - - Body Mass Index 35.12 03/10/2022 12:58 PM CDT documented in this encounter Progress Notes Adriana Neely MD - 09/18/2022 8:45 AM CDT [facility] CC: Follow-up care S: Yancy Watts is feeling well today. - Hemorrhoids are stable; didn't diamond picker medications - Lost mucous plug on Thursday - Strong contractions for 12 hours or so on Thursday, no gone She denies loss of fluid, vaginal bleeding. Good FM. Denies headache, chest pain, shortness of breath. No hematuria, dysuria or other. Some constipation. complications: - Short IPI (PLTCS 04/22/2021) - H/o prior C/S for Arrest or Descent; desires TOLAC - H/o PUPPS - Class 1 obesity - Varicella NI O: Vitals: 09/18/22 0848 BP: 115/68 Pulse: 80 Constitutional: Well appearing, non-toxic female Psych: A&O [...] and precautions reviewed. Adriana Neely MD P: [phone] 09/11/2022 1:43 PM Dictation Disclaimer: Some notes are completed with voice-recognition dictation software. Typographical errors may result . Please contact me via [employer] staff message if you note any errors requiring clarification. documented in this encounter Plan of Treatment Upcoming Encounters Date Type Specialty Care Team Description 12/02/2022 Appointment Obstetrics [place] [address] [address] (Wo rk) documented as of this encounter Visit Diagnoses Diagnosis Short interval between pregnancies affec ting in first trimester, antepartum - Primary History of delivery, currently Supervision of high risk in rst trimester Unspecified high-risk Obesity in Obesity complicating , childbir th, or the puerperium, unspecified as to episode of care or not applicable Hemorrhoids during in third tr imester PUPP (pruritic urticarial papules and pl aques of ) Other specified complication of pregnanc y, unspecified as to episode of care documented in this encounter Care Teams Professor Of Psychiatry Relationship Specialty Start Date End Date Unassigned, Provider PCP - General 08/26/[address] [place] [address] documented as of this encounter
--- OUTSIDE RECORDS SUMMARY | 2022-10-10 23:54 | XMS_ITS | Encounter Summary ---
:1995 Author Organization [employer] Address [address] [place] [address] Care Team Providers Name Role Phone Unassigned, Provider Primary Care Provider Unavailable Reason for Visit Reason Comments Routine Visit 38w 1d Encounter Details Date Type Department Care Team Description 09/25/2022 Routine [facility] Adriana Neely Services-VENUE COORDINATOR MD Marisela Visit (38w 1d) [address], [address] [address] Social History Tobacco Use Types Packs/Day Years Used Date Smoking Tobacco: Never Smokeless Tobacco: Never Alcohol Use Standard Drinks/Week Comments Not Currently 0 (1 standard drink = 0.6 oz pure alcoho l) Sex Assigned at Date Recorded Not on file documented as of this encounter Last Filed Vital Signs Vital Sign Reading Time Taken Comments Blood Pressure 118/72 09/25/2022 8:52 AM CDT Pulse 97 09/25/2022 8:52 AM CDT Temperature - - Respiratory Rate - - Oxygen Saturation - - Inhaled Oxygen Concentration - - Weight 88.5 kg (195 lb) 09/25/2022 8:52 AM CDT Height - - Body Mass Index 35.67 03/10/2022 12:58 PM CDT documented in this encounter Progress Notes Adriana Neely MD - 09/25/2022 8:45 AM CDT [facility] CC: Follow-up care S: Yancy Watts is feeling well today. - How long past BRIANNE will we let her go? She denies loss of fluid, vaginal bleeding. Good FM. Denies headache, chest pain, shortness of breath. No hematuria, dysuria or other - no bowel concerns. complications: - Short IPI (PLTCS 04/22/2021) - H/o prior C/S for Arrest or Descent; desires TOLAC - H/o PUPPS - Class 1 obesity - Varicella NI O: Vitals: 09/25/22 0852 BP: 118/72 Pulse: 97 Constitutional: Well appearing, non-toxic female Psych: A&O x3 See OB flowsheet. A/P: 27 y.o. at 38w1d by LMP c/w 9w5d US presenting for [...] 1 weeks, scheduled. Numbers and precautions reviewed. Membrane sweep offered at 39 weeks or greater. Adriana Neely MD P: [phone] 09/25/2022 9:00 AM Dictation Disclaimer: Some notes are completed with voice-recognition dictation software. Typographical errors may result . Please contact me via [employer] staff message if you note any errors requiring clarification. documented in this encounter Plan of Treatment Upcoming Encounters Date Type Specialty Care Team Description 12/02/2022 Appointment Obstetrics & [place] [address] [address] (Wo rk) documented as [...] imester documented in this encounter Care Teams Rn Lpn Lvn Relationship Specialty Start Date End Date Unassigned, Provider PCP - General 08/26/00 [address] [place] [address] documented as of this encounter
--- OUTSIDE RECORDS SUMMARY | 2022-10-10 23:54 | XMS_ITS | Encounter Summary ---
:1995 Author Organization [employer] Address [address] [facility] [place] [address] Care Team Providers Name Role Phone Marisela Brito MD Primary Care Provider Unavailable Reason for Visit Reason Comments Sports Physical Encounter Details Date Type Department Care Team Description 02/03/2008 Office Visit [facility] [place], MED EX AM NEC-ADMIN PURP (Primary Dx); Physicians VIRAL WARTS NOS; [address] VACCINE FOR DISEASE NEC [address] [place] [phone] Social History Tobacco Use Types Packs/Day Years Used Date Smoking Tobacco: Never Alcohol Use Standard Drinks/Week Comments No 0 (1 standard drink = 0.6 oz pure alcoho l) Sex Assigned at Date Recorded Not on file documented as of this encounter Last Filed Vital Signs Vital Sign Reading Time Taken Comments Blood Pressure 102/50 02/03/2008 6:30 PM CDT Pulse 80 02/03/2008 6:30 PM CDT Temperature 36.4 ??C (97.5 ??F) 02/03/2008 6:30 PM CDT Respiratory Rate - - Oxygen Saturation - - Inhaled Oxygen Concentration - - Weight 49.4 kg (109 lb) 02/03/2008 6:30 PM CDT Height 154.9 cm (5' 1) 02/03/2008 6:30 PM CDT Body Mass Index 20.6 02/03/2008 6:30 PM CDT Body Mass Index Percentile 71.67 % 02/03/2008 6:30 PM CD T Growth Chart: [facility] (Girls, 2-20 Years) documented in this encounter Progress Notes Dunia [place] MD - 02/03/2008 6:56 PM CDT SUBJECTIVE: Yancy Clinton is a 13 year old female presenting for well adolescent and school/sports physical.She is seen today accompanied by mother. PMH: No asthma, diabetes, heart disease, epilepsy or orthopedic problems in the past. ROS: no wheezing, cough or dyspnea, no abdominal pain, no headaches, no bowel or bladder symptoms, regular menstrual cycles No problems during sports participation in the past. Social History: Denies the use of tobacco, alcohol or street drugs. Sexual history: not sexually active Parental concerns: none OBJECTIVE: General appearance: WDWN female. ENT: ears and throat normal Eyes: Vision : 20/25 without correction PERRLA, fundi normal. Neck: supple, thyroid normal, no adenopathy Lungs: clear, no wheezing or rales Heart: no murmur, regular rate and rhythm, normal S1 and S2 Abdomen: no masses palpated, no organomegaly or tenderness Genitalia: genitalia not examined Spine: normal, no scoliosis Skin: Normal with mild acne noted. Neuro: normal Extremities: normal Full musculoskeletal exam- normal ASSESSMENT: Well adolescent female PLAN: Counseling: nutrition, safety, smoking, alcohol, drugs, puberty, peer interaction, sexual education, exercise, preconditioning for sports. Acne treatment discussed. Cleared for school and sports activities. S: The patient complains of warts on the finger present for many months. O: Exam discloses typical warts on 4th digit, barclay surface. A: Viral warts P: The treatments, side effects and failure rates are discussed. Liquid nitrogen was applied to eachwart. The expected skin reaction including erythema, pain, scabbing, blistering and hypopigmented scar formation was discussed. See at intervals until warts resolved. documented in this encounter Nursing Notes 02/03/2008 6:30 PM CDT >> SHEILA MAGALLANES Jarod 02/03/2008 7:11 pm Pt signed consent, VIS was given to pt. >> SHEILA MAGALLANES Jarod 02/03/2008 6:33 pm VISION: Right eye: 20/25 Left eye: 20/25 Right & Left eyes: 20/25 >> SHEILA MAGALLANES Jarod 02/03/2008 6:27 pm Pt here for sports px. Used regular BP Cuff on pts left [...] >40 Patient's BMI Body mass index is 20.61 kg/(m^2). Http://hin.nhlbi.nih.gov/menuplanner/menu.cgi documented in this encounter Plan of Treatment Not on filedocumented as of this encounter Procedures Procedure Name Priority Date/Time Associated Diagnosis Comme nts HC DESTRUCT BENIGN Routine 02/03/2008 6:50 PM CDT Viral Warts Nos LESION, UP TO 14 documented in this encounter Visit Diagnoses Diagnosis Other general medical examination for ad ministrative purposes - Primary Viral warts, unspecified Need for prophylactic vaccination and in oculation against other specified disease documented in this encounter Care Teams Vice President Of Brand Management Relationship Specialty Start Date End Date Marisela Brito MD PCP - General 12/10/9905/03 documented as of this encounter
--- OUTSIDE RECORDS SUMMARY | 2022-10-10 23:54 | XMS_ITS | Encounter Summary ---
:1995 Author Organization [employer] Address [address] [facility] [place] [address] Care Team Providers Name Role Phone Unavailable Primary Care Provider Unavailable Encounter Details Date Type Department Care Team Description 06/21/1999 Immunization [facility] ysicians Uday Mayfield, IVA [address] [place] [address] [address] [place] [address] Social History Tobacco Use Types Packs/Day Years Used Date Smoking Tobacco: Never Assessed Sex Assigned at Date Recorded Not on file documented as of this encounter Plan of Treatment Not on filedocumented as of this encounter Visit Diagnoses Not on filedocumented in this encounter
--- OUTSIDE RECORDS SUMMARY | 2022-10-10 23:55 | XMS_ITS | Encounter Summary ---
:1995 Author Organization [employer] Address [address] [place] [place] [address] Care Team Providers Name Role Phone Unassigned, Provider Primary Care Provider Unavailable Encounter Details Date Type Department Care Team Description 02/05/2022 Notes/Orders [facility] Gave, Cornelio Donovan ence of Services-BIOENGINEER INTERVENTIONAL RADIOLOGIST, PCA ASSISTED LIVING menstruation (Primary [id number] [place], [place] [address] Dx) Drive, [address] [address] [phone] (Wo rk) Social History Tobacco Use Types [...] Obstetrics & Gynecology [place], [place] [address] [place] [address] [facility] [address] [place], [place] [address] (Wo rk) documented as of this encounter Visit Diagnoses Diagnosis Absence of menstruation - Primary documented in this encounter Care Teams Agricultural Commodities Grader Relationship Specialty Start Date End Date Unassigned, Provider PCP - General 08/26/[address] [place] [address] documented as of this encounter
--- OUTSIDE RECORDS SUMMARY | 2022-10-10 23:55 | XMS_ITS | Encounter Summary ---
:1995 Author Organization [employer] Address [address] [place] [address] Care Team Providers Name Role Phone Unassigned, Provider Primary Care Provider Unavailable Reason for Referral Home Health (Routine) - Closed Specialty Diagnoses / Procedures Referred By Contact Refer red To Contact Diagnoses [place] [address] [address] [place] [address] Referral ID Status Reason Start Date Expiration Date Visits Requ ested Visits Authorized [id number] Closed 04/25/2021 07/25/[phone] Scheduling Instructions Your provider has [facility] an [facility] ment [facility]. Please call [phone] to s chedule your appointment. You may want to call your health insurance company about your coverage and benefits for this appointment. Encounter Details Date Type Department Care Team Description 04/25/2021 Notes/Orders [facility] SCHEDULING Adriana Neely Routine post DEPARTMENT MD Marisela follow-up (Primary [id number] [address]x) [address] [place] [address] (Wo rk) Social History Tobacco [...] Appointment Obstetrics & [place] [address] [address] (Wo rk) Scheduled Referrals Name Type Priority Associated Diagnoses [facility] and Referral Routine Routine Order ed: 04/25/2021 Depue follow-up documented as of this encounter Visit Diagnoses Diagnosis Routine follow-up - Primary documented in this encounter Care Teams Engineering Designer Relationship Specialty Start Date End Date Unassigned, Provider PCP - General 08/26/[address] [place] [address] documented as of this encounter
--- OUTSIDE RECORDS SUMMARY | 2022-10-10 23:55 | XMS_ITS | Encounter Summary ---
:1995 Author Organization [employer] Address [address] [place] [address] Care Team Providers Name Role Phone Unassigned, Provider Primary Care Provider Unavailable Reason for Visit Auth/Cert Specialty Diagnoses / Procedures Referred By Contact Refer red To Contact Referral ID Status Reason Start Date Expiration Date Visits Requ ested Visits Authorized [id number] 1 1 Encounter Details Date Type Department Care Team Description 04/27/2021 Home Care Visit PN MATERNAL CHILD SN Jose [facility] Shauna Salazar RN ASSESSMENT [address] [place] [address] Social History Tobacco Use Types Packs/Day Years Used Date Smoking Tobacco: Never Smokeless Tobacco: Never Alcohol Use Standard Drinks/Week Comments Not Currently 0 (1 standard drink = 0.6 oz pure alcoho l) Sex Assigned at Date Recorded Not on file documented as of this encounter Last Filed Vital Signs Vital Sign Reading Time Taken Comments Blood Pressure 138/80 04/27/2021 2:15 PM CDT Pulse - - Temperature - - Respiratory Rate - - Oxygen Saturation - - Inhaled Oxygen Concentration - - Weight - - Height - - Body Mass Index - - documented in this encounter Plan of Treatment Upcoming Encounters Date Type Specialty Care Team Description 12/02/2022 Appointment Obstetrics & [place]ne[place] [address] [address] (Wo rk) Scheduled Referrals Name Type Priority Associated Diagnoses Order S chedule Home Care OB and Referral Routine Routine Order ed: 04/25/2021 follow-up documented as of this encounter Visit Diagnoses Not on filedocumented in this encounter Care Teams Local Owner Operator Truck Driver Relationship Specialty Start Date End Date Unassigned, Provider PCP - General 08/26/00 [address] [place] [address] documented as of this encounter
--- OUTSIDE RECORDS SUMMARY | 2022-10-10 23:55 | XMS_ITS | Encounter Summary ---
:1995 Author Organization [employer] Address [address] [place] [address] Care Team Providers Name Role Phone Unassigned, Provider Primary Care Provider Unavailable Encounter Details Date Type Department Care Team Description 10/25/2021 Notes/Orders [place] [address] [facility] for Pediatrics MD screening examination [address] [address] [facility] [address] for other mental [place] health and be havioral [phone] disorders (Primary Dx) [phone] Social History Tobacco Use Types Packs/Day Years Used Date Smoking Tobacco: Never Smokeless Tobacco: Never Alcohol Use Standard Drinks/Week Comments Not Currently 0 (1 standard drink = 0.6 oz pure alcoho l) Sex Assigned at Date Recorded Not on file documented as of this encounter Plan of Treatment Upcoming Encounters Date Type Specialty Care Team Description 12/02/2022 Appointment Obstetrics & [place] [address] [facility] [address] [address] (Wo rk) documented as of this encounter Visit Diagnoses Diagnosis Encounter for screening examination for other mental health and behavioral disorders - Primary documented in this encounter Care Teams Milk Condenser Relationship Specialty Start Date End Date Unassigned, Provider PCP - General 08/26/[address] [place] [address] documented as of this encounter
--- OUTSIDE RECORDS SUMMARY | 2022-10-10 23:55 | XMS_ITS | Encounter Summary ---
:1995 Author Organization [employer] Address [address] [place] [address] Care Team Providers Name Role Phone Unassigned, Provider Primary Care Provider Unavailable Reason for Visit Procedure/Equipment (Routine) - Incomplete Specialty Diagnoses / Procedures Referred By Contact Refer red To Contact Diagnoses Previous section complicating Obesity in Gave, Jacinda J, GREASE PACKER, Procedures [facility] Level 2 FURNITURE DESIGNER [id number] [place] [address] Referral ID Status Reason Start Date Expiration Date Visits V isits Requested Authorized [id number] Incomplete 04/02/2022 07/02/2023 10 10 Encounter Details Date Type Department Care Team Description 05/23/2022 Ancillary [facility] Gave, Jacinda Previ ous section complicating ; Procedure Medicine J, GREASE PACKER, [place] [address] [place] [address] [address], [address] [place] [address] [id number] Social History Tobacco Use Types Packs/Day Years [...] Obstetrics & Gynecology [place] [address] [facility] [address] [place], [place] [address] (Wo rk) documented as of this encounter Procedures Procedure Name Priority Date/Time Associated Diagnosis Comme nts [facility] US LEVEL 2 Routine 05/23/2022 8:44 AM Previous Re sults for this CDT section complicating procedu re are in the results Obesity in section . documented in this encounter Results [facility] US Level 2 (05/23/2022 8:44 AM CDT) athologist Signature Cervical Length 3.52 cm EXTERNAL RESULTS Anatomical Region Laterality Modality Pelvis Ultrasound Study GA Study Date Study BRIANNE Working BRIANNE (Source) W eight (Method) 20w0d 05/23/2022 10/10/2022 10/08/2022 (Last Menstrual 3 59 g (Hadlock 1984 (BPD, Period) HC, AC, FL) )36 6 g (Hadlock 1984 ( AC, FL) )361 g (Hadlock 1984 (BPD, AC, FL) )358 g (Hadlock 1984 (HC, AC, F L) )402 g (Hadlock 1983 ( AC) )361 g (Hadlock 1983 ( HC, AC) )357 g (Laguna 1981 (BPD, AC) ) Result Name Value Comments GA by US Calc 140 days 140 BPD 4.64 cm 140 HC 17.64 cm 141 AC 15.75 cm 147 FL 3.27 cm 142 HL 3.16 cm FL/BPD 70.47 % FL/AC 20.76 % HC/AC 1.12 CI 73.53 % MAURICE Q1 MAURICE Q2 MAURICE Q3 MAURICE Q4 MAURICE Lateral Ventricle 0.62 cm CER 2.22 cm Foot 3.49 cm 146 Max Vertical Pocket FHR 161 bpm UAR - PSV UAR - S/D Ratio UAR - RI UAR - PI MCA - PSV MCA - S/D Ratio MCA - PI Cisterna Magna 0.58 cm NF 0.4 cm Specimen (Source) Anatomical Location Collection Method / Collectio n Time Received Time / Laterality Volume Impressions 05/23/2022 9:01 AM CDT S: 1) Intrauterine at 20 weeks 2 days gestational age 2) None of the anomalies commonly detect ed by ultrasound were evident in the detailed anatomic survey descr ibed above. 3) No markers for aneuploidy seen. 4) biometry is consistent with ges tational age. ?? 5) The amniotic fluid volume appeared no rmal. 6) Normal cervical length 7) No evidence of placenta previa RECOMMENDATIONS: -Continue routine care with kristy montanez OB provider D/w pt FTF. ??The patient indicated unde rstanding of the limitations of ultrasound, including its inability to d iagnose aneuploidy and/or detect all structural anomalies. Discussed avai lability of maternal serum screening (NIPS) for further risk assess ment. ??Compared to ultrasound at 50%, serum screening has a 95% to 99% de tection rate for trisomy 21. She was comfortable with the current nj sk assessment and did not desire maternal serum screening. Narrative 05/23/2022 9:01 AM CDT ?? [facility] [address] [place] [address], [address] [place] [address] Dept Dept Patient Name: Yancy Watts ??Refe rred By: Attending: Jacinda Knight GREASE PACKER, FURNITURE DESIGNER Erica Moraes MD Patient ??Certified Ophthalmic Medical Technician: Destiny CASTANO, Age: 2 1995, 27 y.o. ??GA Prior to Exam: 20w2d LMP: Patient's last menstrual period was 01/01/2022 (exact date). ??GA by Today's US: 20w0d Pregnancies: ??GA BRIANNE: 20w2d Last Menstrual Period Pre- BMI: ??30.17 ??BRIANNE: 10/08/20 22 Hx/Indications: BMI 30 Hx LTCS x1 Short interval between pregnancies Hx PUPPS Declined Genetic Screening Evaluation Gestation Type arias Cardiac Activity present Motion normal Presentation cephalic Amniotic Fluid normal Placenta Location posterior Placenta Appearance appears normal Placenta Cord Insertion normal Measurement Value Rank GA BPD 4.64 cm 38% 20w0d HC 17.64 cm 34% 20w1d AC 15.75 cm 64% 21w0d FL 3.27 cm 39% 20w2d HL 3.16 cm 39% ?? FL/BPD 70.47 % ?? FL/AC 20.76 % 20 - 24% ?? HC/AC 1.12 5 - 50% ?? CI 73.53 % 70 - 86% ?? Lateral Ventricle 0.62 cm ?? CER 2.22 cm 50 - 90% ?? Foot 3.49 cm 71% 20w6d FHR 161 bpm ?? Cisterna Magna 0.58 cm ?? NF 0.4 cm ?? Weight: 359 g (12.7 oz), 57% Head ??Abdomen Cranium appears normal ??Diaphragm appea rs normal Midline Falx appears normal ??Stomach ap pears normal Cerebellum appears normal ??Liver appear s normal Vermis appears normal ??Bowel appears no rmal Cisterna Magna appears normal ??Ascites absent Lateral Ventricle appears normal ??Umbil ical Cord Insertion appears normal Choroid Plexus appears normal ??Cord Ves sels three Cavum Septi Pellucidi appears normal ??H eart Corpus Callosum appears normal ??Heart Rhythm regular Nuchal Fold appears normal ?? Situs nor mal Face ??4 Chamber View appears normal Orbits appears normal ??Cardiac Butler joana ears normal Lenses appears normal ??Cardiac Position appears normal Lips/Nose appears normal ??AV Valves joana ears normal Profile appears normal ??Valve Motion a ppears normal Nasal Bone appears normal ??LVOT/AO joana ears normal Maxilla appears normal ??RVOT/PA appears normal Mandible appears normal ??Aortic Arch ap pears normal Neck appears normal ?? Ductal Arch appea rs normal Spine ??IVC/SVC appears normal Spine appears normal ??3 Vessel View joana ears normal Chest ?? 3 Vessel Trachea View appears n ormal Thorax appears normal ??Foramen Ovale ap pears normal Lungs appears normal ??Pulmonary Veins a ppears normal Pleural Effusion absent ??Short Butler of Ventricles appears normal Extremities ??Short Butler of Great Vessel s appears normal Right Upper Extremity appears normal ?? Pericardial Effusion absent Right Hand appears normal ??Interventric ular Septum appears normal Left Upper Extremity appears normal ??At rial Septum appears normal Left Hand appears normal ??Ductus Venosu s appears normal Right Lower Extremity appears normal ??U rinary Tract Right Foot appears normal ??Right Kidney appears normal Left Lower Extremity appears normal ??Le ft Kidney appears normal Left Foot appears normal ??Bladder appea rs normal ?? Genitalia ?? Genitalia appears normal ?? Sex male ?? Skin ?Edema absent Maternal Evaluation Cervix Normal Uterus Normal Cervical Length 3.52 cm ?? Approach Transabdominal Right Ovary Inad equately Visualized With Fundal Pressure (cm) N/A ?? Left Ov jerry Inadequately Visualized Funneling Absent Right Adnexa Normal Cul-de-sac No fluid seen Left Adnexa Nor mal Impression Jacinda Knight GREASE PACKER, FURNITURE DESIGNER RAD RAMESH US documented in this encounter Visit Diagnoses Diagnosis Previous section complicating p regnancy Previous delivery, unspecified as to episode of care or not applicable Obesity in Obesity complicating , childbir th, or the puerperium, unspecified as to episode of care or not applicable documented in this encounter Care Teams Demolition Worker Relationship Specialty Start Date End Date Unassigned, Provider PCP - General 08/26/[address] [place] [id number] documented as of this encounter
--- OUTSIDE RECORDS SUMMARY | 2022-10-10 23:55 | XMS_ITS | Encounter Summary ---
:1995 Author Organization [employer] Address [address] [place] [address] Care Team Providers Name Role Phone Unassigned, Provider Primary Care Provider Unavailable Reason for Visit Reason Comments Routine Visit Encounter Details Date Type Department Care Team Description 07/10/2022 Routine [facility] Adriana Neely Services-LIBRARY MEDIA SPECIALIST MD Marisela Visit [address] [place] [address], [address] [place] [address] [phone] Social History Tobacco Use Types Packs/Day Years Used Date Smoking Tobacco: Never Smokeless Tobacco: Never Alcohol Use Standard Drinks/Week Comments Not Currently 0 (1 standard drink = 0.6 oz pure alcoho l) Sex Assigned at Date Recorded Not on file documented as of this encounter Last Filed Vital Signs Vital Sign Reading Time Taken Comments Blood Pressure 113/55 07/10/2022 10:17 AM CDT Pulse 74 07/10/2022 10:17 AM CDT Temperature - - Respiratory Rate - - Oxygen Saturation - - Inhaled Oxygen Concentration - - Weight 82.6 kg (182 lb) 07/10/2022 10:17 AM CDT Height - - Body Mass Index 33.29 03/10/2022 12:58 PM CDT documented in this encounter Patient Instructions AttachmentsThe following attachments cannot be sent through Care Everywhere. Contraception: : General Info (Macedonian)documented in this encounter Progress Notes Adriana Neely MD - 07/10/2022 10:15 AM CDT [facility] CC: Follow-up care S: Yancy Watts is feeling well today. - Denies concerns She denies loss of fluid, vaginal bleeding. Good FM. She has been having no regular pelvic pain or cramping. Denies headache, chest pain, shortness of breath. No hematuria, dysuria or other. Some constipation is coming back. complications: - Short IPI (PLTCS 04/22/2021) - H/o prior C/S for Arrest or Descent - H/o PUPPS - Class 1 obesity - Varicella NI O: Vitals: 07/10/22 1017 BP: 113/55 Pulse: 74 Constitutional: Well appearing, non-toxic female Psych: A&O x3 See OB flowsheet. A/P: 27 y.o. at 26w1d by LMP c/w 9w5d US presenting for follow-up care. Care: -OB labs reviewed: O positive, Rubella immune, HIV neg, Heb B nonreactive, Heb B immune, RPR negative. -Genetics: Declines -Anatomy ultrasound: Level 2 unremarkable, posterior placenta -Rh positive, Rhogam not indicated -GCT along with CBC, RPR - today - S/p flu, s/p COVID x2, booster did not receive - Tdap today - GBS at 36 weeks - Feed: Breast; will need pump Rx - Contraception: Information provided, declines - Continue PNV H/o PLTCS for AoDescent and non-reassuring status: - S/p counseling re: TOLAC vs. Repeat C/S in the setting of desiring 3-4 children. - Desire ; will need to sign consents. Copy given today, will sign at next visit. RTC in 4 weeks, scheduled. Precautions reviewed. Adriana Neely MD P: [phone] 07/03/2022 9:33 AM Dictation Disclaimer: Some notes are completed with voice-recognition dictation software. Typographical errors may result . Please contact me via [employer] staff message if you note any errors requiring clarification. documented in this encounter Plan of Treatment Upcoming Encounters Date Type Specialty Care Team Description 12/02/2022 Appointment Obstetrics & [place] [address] [address] (Wo rk) documented as of this encounter Visit Diagnoses Diagnosis Supervision of high risk in rst trimester - Primary Unspecified high-risk Need for Tdap vaccination Need for prophylactic vaccination with c ombined ngoesfqtvi-olpyuke-fpmcnrtua (DTP) vaccine Short interval between pregnancies affec ting in first trimester, antepartum History of delivery, currently Obesity in Obesity complicating , childbir th, or the puerperium, unspecified as to episode of care or not applicable documented in this encounter Care Teams Pipe Stem Repairer Relationship Specialty Start Date End Date Unassigned, Provider PCP - General 08/26/[address] [place] [address] documented as of this encounter
--- OUTSIDE RECORDS SUMMARY | 2022-10-10 23:55 | XMS_ITS | Encounter Summary ---
:1995 Author Organization [employer] Address [address] [place] [address] Care Team Providers Name Role Phone Unassigned, Provider Primary Care Provider Unavailable Reason for Visit Reason Comments SKIN PROBLEM stretch lowe inner thighs p ost . Painful Consult/Transfer Care (Routine) - Closed Specialty Diagnoses / Procedures Referred By Contact Refer red To Contact Diagnoses [place] [address] [address] Referral ID Status Reason Start Date Expiration Date Visits Requ ested Visits Authorized [id number] Closed 06/11/2021 09/10/2022 1 1 Encounter Details Date Type Department Care Team Description 10/24/2021 Office Visit Santi Pranay Leonardo, Dominique alan Dermatology (Primary Dx) [address] [address] [address] [phone] [place] [address] (Wo rk) Social History Tobacco Use Types Packs/Day Years Used Date Smoking Tobacco: Never Smokeless Tobacco: Never Alcohol Use Standard Drinks/Week Comments Not Currently 0 (1 standard drink = 0.6 oz pure alcoho l) Sex Assigned at Date Recorded Not on file documented as of this encounter Progress Notes Pranay Leonardo MD - 10/24/2021 9:15 AM CST DERMATOLOGY VISIT Yancy Shipleytz 1995 [id number] Subjective: 26 y.o. female here today for evaluation of stretch lowe. New patient to Dermatology Clinic. Referred by Dr. Wolfe in military pay technician. Patient recently had her 1st child, during she developed significant stretch lowe. She would like to discuss stretch lowe of the inner thighs today. These are symptomatic and painful, they affect her quality of life. They interfere with her weightlifting and exercise, including running. 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 Tight clothing with seams irritates the skin a little bit more. No other lesions of concern. She is planning on having more children. Objective: On the inner thighs she has multiple, linear and branching, atrophic plaques with background erythema and violaceous discoloration. Yancy was seen today for skin problem. Diagnoses and all orders for this visit: Striae gravidarum Reviewed mitigating factors: Recommend regular use of a cream based emollient for skin barrier, pramoxine containing emollient for topical anesthetic, loose fitting clothing as she is able to wear, anti Chafe lubricant such as Body [place] during exercise. Could consider topical lidocaine for intermittent prn use for increased comfort with activities thatstretch the skin such as weight lifting. We discussed that certain lasers such as Fraxel, can help with the appearance of the scarring. I am uncertain if it will help with the symptoms. Also discussed that this would likely be a cosmetic out of pocket expense. If this is the case, patient likely defer treatment until she is done having children. Return clinic as needed Pranay Leonardo MD Dermatology - [facility] 10/24/2021 This note was created using voice recognition software and may contain unintended word substitutions. Spoke with colleague re: laser treatment for striae; if erythema is present PDL series would be reasonable starting point. I discussed this with the patient who is planning on becoming next year. Reviewed OOP for laser treatment. She will discuss with her and message me to schedule PDL appointment if she decides to proceed. Melonie Escobedo MD - 10/24/2021 9:15 AM CST Will Swartz, Thank you for your nice note! I hope all is well with you also! Striae can be difficult. I think we can often make them better with lasers, but not completely gone.If they are still red, starting with pulsed dye laser series can be good to try. If no longer red, can try Fraxel series. Degree of response can be variable. I'd be happy to see her for a cosmetic consultation if she wishes! She could call my cosmetic scheduling number at [phone]. Thanks again! Melonie MOUNTER OPERATOR documented in this encounter Plan of Treatment Upcoming Encounters Date Type Specialty Care Team Description 12/02/2022 Appointment Obstetrics & [place] [address] [address] (Wo rk) Scheduled Referrals Name Type Priority Associated Diagnoses Order S chedule Dermatology Referral Routine Stretch lowe Ordered: 06/11 Consult-Adult/Peds documented as of this encounter Visit Diagnoses Diagnosis Striae gravidarum - Primary Striae atrophicae documented in this encounter Care Teams Developer Relations Manager Relationship Specialty Start Date End Date Unassigned, Provider PCP - General 08/26/[address] [place] [id number] documented as of this encounter
--- OUTSIDE RECORDS SUMMARY | 2022-10-10 23:55 | XMS_ITS | Encounter Summary ---
:1995 Author Organization [employer] Address [address] [place] [address] Care Team Providers Name Role Phone Unassigned, Provider Primary Care Provider Unavailable Reason for Visit Reason Comments Routine Visit 40w 4d Encounter Details Date Type Department Care Team Description 04/18/2021 Routine [facility] Adriana Neely Services-TURRET PRESS OPERATOR MD Marisela Visit (40w 4d) [address], [address] [address] Social History Tobacco Use Types Packs/Day Years Used Date Smoking Tobacco: Never Smokeless Tobacco: Never Alcohol Use Standard Drinks/Week Comments Not Currently 0 (1 standard drink = 0.6 oz pure alcoho l) Sex Assigned at Date Recorded Not on file documented as of this encounter Last Filed Vital Signs Vital Sign Reading Time Taken Comments Blood Pressure 114/71 04/18/2021 10:29 AM CDT Pulse 85 04/18/2021 10:29 AM CDT Temperature - - Respiratory Rate - - Oxygen Saturation - - Inhaled Oxygen Concentration - - Weight 89.2 kg (196 lb 9.6 oz) 04/18/2021 10:29 AM CDT Height - - Body Mass Index 35.96 11/20/2020 8:10 AM FINANCIAL SALES REPRESENTATIVE documented in this encounter Patient Instructions Patient InstructionsAdriana Neely MD - 04/18/2021 10:30 AM CDT Images from the original note were not included. Call labor and delivery at 6:30 in the evening on 04/21 for scheduled induction of labor for 41 weeksof at 7:30 that evening. Their phone number is: [phone]. Labor Induction: Care Instructions Overview If you pass your due date and your labor does not start on its own, your doctor may want to try to start (induce) labor. Your doctor may suggest doing this for other reasons. It may be a good idea to induce labor if you have another problem. For example, it may be done if you have high blood pressure.Or it may be a good idea if the placenta can no longer give enough support to the baby. There are several ways to induce labor, such as using medicine or breaking the amniotic sac. After you have your baby, you should not have any side effects from the medicine used to start labor. Follow-up care is a norman part of your treatment and safety. Be sure to make and go to all appointments, and call your doctor if you are having problems. It's also a good idea to know your test results and keep a list of the medicines you take. When should your labor be induced? Labor induction may be done if labor doesn't start on its own. Labor may be induced when: ?? Your has gone 1 to 2 weeks past your expected due date. ?? You have a problem that may harm your health or the health of your baby if you continue to be . This includes high blood pressure, preeclampsia, and diabetes. ?? Your water breaks, but labor does not start. When should you call for help? Watch closely for changes in your health, and be sure to contact your doctor if you have questions about inducing labor. Where can you learn more? 1. Go to https://www.[employer]/healthlibrary. 2. Enter [id number] in the search box. Current as of: August 30, 2020?Content Version: 12.8 ?? [employer]. Care instructions adapted under license by your healthcare professional. If you have questions abouta medical condition or this instruction, always ask your healthcare professional. [employer] disclaims any warranty or liability for your use of this information. documented in this encounter Progress Notes Adriana Neely MD - 04/18/2021 10:30 AM CDT [facility] ?? CC:??Follow-up care ?? S:??Yancy Watts??is feeling ok today. - What is the plan? - Occasional contractions. She denies loss of fluid or vaginal bleeding. Reports good movement. No VEGA, vision changes, SOB, CP. ?? complications: -??Late ZOE at 19 weeks - Vaginismus, saw pelvic floor PT - COVID 19 in 1st trimester ?? O:?? Vitals: 04/18/21 1029 BP: 114/71 Pulse: 85 Gen: alert, oriented, NAD ?? See OB flow sheet Cvx: FT/70/-4, posterior, medium ?? A/P:??25 y.o.?? at 40w4d ??by LMP c/w 11w1d US??presenting for follow-up care. ?? Care: -OB labs reviewed:??O??positive, Rubella immune, HIV neg, Heb B nonreactive, Heb B immune, RPR negative -Genetics:??Declined?? -Anatomy ultrasound:??L2 with normal anatomy, posterior placenta, Girl!?? - Rh positive, Rhogam not indicated - GCT 84, Hgb 12.3 - S/p flu, Tdap??02/07/21 - GBS neg - Feed:??Breast with pumping, has breast pump - Continue PNV - Contraception: Condoms. IPI of 18 months reviewed. ?? COVID in early : - Growth US 02/21 EFW 2062g, 48%, MAURICE 11 - Declines covid vaccine at this time ?? PUPPS, improving - Kenalog 0.1% ointment PRN ?? IOL scheduled for 41 weeks in the evening for cervical ripening. If the patient does not hear from [facility] by the end of the workday tomorrow, she will call the nurse line at which time they will helpher get to Labor and delivery to do a COVID swab prior to induction on Thursday. Adriana Neely MD P: [phone] 04/18/2021 10:33 AM Dictation Disclaimer: Some notes are completed with voice-recognition dictation software. Typographical errors may result . Please contact me via [employer] staff message if you note any errors requiring clarification. documented in this encounter Plan of Treatment Upcoming Encounters Date Type Specialty Care Team Description 12/02/2022 Appointment Obstetrics & [place] [address] [address] (Wo rk) documented as of this encounter Visit Diagnoses Diagnosis Encounter for supervision of normal firs t in second trimester - Primary Supervision of normal first Vaginismus documented in this encounter Care Teams Water Softener Servicer Relationship Specialty Start Date End Date Unassigned, Provider PCP - General 08/26/[address] [place] [address] documented as of this encounter
--- OUTSIDE RECORDS SUMMARY | 2022-10-10 23:55 | XMS_ITS | Encounter Summary ---
:1995 Author Organization [employer] Address [address] [place] [address] Care Team Providers Name Role Phone Unassigned, Provider Primary Care Provider Unavailable Reason for Referral Consult/Transfer Care (Routine) - New Request Specialty Diagnoses / Procedures Referred By Contact Refer red To Contact Diagnoses Supervision of high risk in first trimester Short interval between pregnancies affecting in first trimester, antepartum History [place] [address] [address] [place] [id number] Referral ID Status Reason Start Date Expiration Date Visits V isits Requested Authorized [id number] New Request 04/01/2022 07/01/2023 1 1 Scheduling Instructions Your provider has recommended an appoint ment with [facility]. A chief technical officer will contact you t o assist you in setting up this appointment. If you have not been contacted within on e week or have any questions, please call [phone]. We suggest you call your [facility] insurance company about your coverage and benefits for this appointment. Reason for Visit Reason Comments Routine Visit 14w 1d Encounter Details Date Type Department Care Team Description 04/10/2022 Routine [facility] Neely [facility]-STERILE PROCESS TECH MD Marisela Visit (14w 1d) [id number] [id number], [address] [place] [address] [place] [phone] Social History Tobacco Use Types Packs/Day Years Used Date Smoking Tobacco: Never Smokeless Tobacco: Never Alcohol Use Standard Drinks/Week Comments Not Currently 0 (1 standard drink = 0.6 oz pure alcoho l) Sex Assigned at Date Recorded Not on file documented as of this encounter Last Filed Vital Signs Vital Sign Reading Time Taken Comments Blood Pressure 111/56 04/10/2022 11:30 AM CDT Pulse 71 04/10/2022 11:30 AM CDT Temperature - - Respiratory Rate - - Oxygen Saturation - - Inhaled Oxygen Concentration - - Weight 75.2 kg (165 lb 12.8 oz) 04/10/2022 11:30 AM CDT Height - - Body Mass Index 30.33 03/10/2022 12:58 PM CDT documented in this encounter Patient Instructions Patient InstructionsAdriana Neely MD - 04/10/2022 11:41 AM CDT Eozl-qgu-[id number] Medications To treat common symptoms during During your , you may have an occasional desire to take an qdsy-shr-mnqvfox medicine (one that is available without a prescription). It is best to avoid most medications when possible, but sometimesthe benefits of medication outweighs the risks. Below is a list of common medications that appear to be safe to use during . These medications have not been shown to cause harm to the fetus when taken infrequently for a short period of time. Pleasetalk to your clinician if you have any questions. Aches, headaches, fever Acetaminophen (Tylenol) [] Regular strength (325 mg) 1-2 tablets every 4 to 6 hours; not to exceed 3250 mg/day [] Extra strength (500 mg) 1-2 tablets every 8 hours; not to exceed 3000 mg/day NOT recommended: naproxen (Aleve), ibuprofen (Motrin, Advil), especially in 1st and 3rd trimesters Allergies Chlorpheniramine (Chlor-Trimeton) Loratadine (Claritin, Alavert, Tavist ND) Diphenhydramine (Benadryl) Cetirizine (Zyrtec) Colds, coughs and sinus congestions Cough drops Vicks VapoRub Saline nasal spray (Afrin, [place], [place]) Guaifenesin, an expectorant (Mucinex, Robitussin, Hytuss) Dextromethorphan, a cough suppressant (Robitussin Maximum Strength Cough, Vicks 44 Cough Relief) Guaifenesin plus dextromethorphan (Robitussin DM, Vicks 44E) Pseudoephedrine (avoid during 1st trimester) NOT recommended: decongestant phenylephrine Itching Hydrocortisone (Cortaid, Lanacort) Other infections (fungal) that may cause itching and burning Tolnaftate (Tinactin) Clotrimazole (Lotrimin AF) Terbinafine (Lamisil AT) for athlete???s foot NOT recommended: some Cruex, Desenex, and Fungi Cure products should not be used during ; check labels carefully Constipation Docusate sodium (Colace) can be used as a stool softener Fiber (Metamucil, Citrucel, Fiber-Lax, FiberCon) Laxatives ([place] Milk of Magnesia, Dulcolax Milk of Magnesia) Cuts and scrapes Bacitracin and polymixin B (Polysporin) Diarrhea Loperamide (Imodium) NOT recommended: PeptoBismol Gas Pains Simethicone (Gas-X, Mylanta Gas, Maalox Anti-Gas, Mylicon) Heartburn Fast acting antacids (Tums, Maalox, Mylanta) Longer lasting antacids: famotidine (Pepcid), omeprazole (Prilosec) Hemorrhoids Anusol, Tucks Insomnia (difficulty sleeping) Diphenhydramine (Benadryl, Unisom SleepGels, Sominex) Doxylamine (Unisom Nighttime Sleep-Aid) Dimenhydrinate (Dramamine) Nausea/vomiting Pyroidoxine (Vitamin B6) 10-25 mg [] By mouth every 6 to 8 hours Doxylamine (Unisom) 25 mg (1/2 tablet) [] By mouth 2 to 3 times a day Vaginal yeast infections Miconazole (Monistat 3) Clotrimazole (GyneLotrimin 3, Mycelex 7) Butoconazole (Mycelex 3, Femstat 3) documented in this encounter Progress Notes Adriana Neely MD - 04/10/2022 11:30 AM CDT [facility] CC: Follow-up care S: Yancy Watts is feeling well today. - Thursday she did yard work and now has some bumps/rash on her abdomen or inner thighs, PUPPs returning? She denies loss of fluid, vaginal bleeding. No FM as of yet. She has been having no regular pelvic pain or cramping. Denies headache, chest pain, shortness of breath. No hematuria, dysuria or other. Noconstipation or diarrhea. complications: - Short IPI (PLTCS 04/22/2021) - H/o prior C/S for Arrest or Descent - H/o PUPPS - Class 1 obesity - Varicella NI O: Filed Vitals: 04/10/22 1130 BP: 111/56 Pulse: 71 Weight: 165 lb 12.8 oz (75.2 kg) Constitutional: Well appearing, non-toxic female Psych: A&O x3 HEENT: Eyes are normal with clear sclerae. Ears are symmetric. Respiratory: Non-labored breathing with good inspiratory effort CV: Distal extremities are warm and well perfused Musculoskeletal: Normal gait Neuro: Moves all extremities equally Skin: The patient does have small punctate erythematous lesions on her left upper quadrant, as well as on her inner thighs correlating with stretch lowe. : External genitalia within normal limits. See OB flowsheet. A/P: 27 y.o. at 14w1d by LMP c/w 9w5d US presenting for follow-up care. Care: -OB labs reviewed: O positive, Rubella immune, HIV neg, Heb B nonreactive, Heb B immune, RPR negative. Vaginal GC/Chlam completed today. -Genetics: Declines -Anatomy ultrasound: Level 2 US ordered -Rh positive, Rhogam not indicated -GCT at 26-28 weeks along with CBC, RPR - S/p flu, s/p COVID x2, booster hasn't received. Recommended and reviewed safety. - GBS at 36 weeks - Continue PNV H/o PLTCS for AoDescent and non-reassurig status: - the patient was initially thinking on repeat Caesarean section. When asked, the patient states shewants 3-4 kids, probably more like 4. We did discuss with increasing C-sections, increases the risk of morbidly adherent placenta is affecting course, increased risk from a maternal standpointat the time of repeat section, potentially needing a vertical midline incision, as well as possibly necessitating early delivery if lower uterine segment thinness/or uterine window would be noted. The patient was not previously aware of these things. We did discuss having an ongoing discussion as her continues regarding mode of delivery at that time. Other: - Patient was oriented to the [facility] call system with delivery at [facility] - Discussed routine ob visits, timing of appts and routine testing. - Reviewed diet, activity and exercise, weight gain - Reviewed warning signs for which to notify us Follow-up in clinic in 4 weeks, scheduled. Adriana Neely MD P: [phone] 04/10/2022 11:49 AM documented in this encounter Plan of Treatment Upcoming Encounters Date Type Specialty Care Team Description 12/02/2022 Appointment Obstetrics & [place] [address] [address] (Wo rk) Scheduled Referrals Name Type Priority Associated Diagnoses Order S chedule Maternal Referral Routine Supervision of high risk O rdered: 04/01/2022 Medicine Services in first trimester Short interval between pregnancies affecting in first trimester, antep artum History of delivery, currently documented as of this encounter Procedures Procedure Name Priority Date/Time Associated Diagnosis Comme nts OB CLINIC ULTRASOUND Routine 04/10/2022 Supervision of high Results for this LIMITED risk in first proc edure are in the trimester results section. Short interval between pregnancies affecting in first trimester, antep artum History of delivery, currently documented in this encounter Results Chlamydia & GC (14 Years and Older) (04/10/2022 12:53 PM CDT) [facility] Method Time Signature Chlamydia Not Not 04/11/2022 [facility] Trachomatis Detected Detected 2:00 PM CDT [facility] STD N. gonorrhoeae Not Not 04/11/2022 [facility] STD Detected Detected 2:00 PM CDT C[facility]AL LAB Specimen Anatomical Collection Method Collection Time Receive d Time (Source) Location / / Volume Laterality Swab STD SPECIMEN FROM Non-blood 04/10/2022 12:53 04/10/2022 1:09 VAGINA / Unknown Collection / PM CDT PM CDT Unknown Narrative [facility] - 04/11/2022 2:00 PM CDT Test performed by Supervisor Quilting Mediated Amplification (TMA). Adriana Neely MD LAB_1 Performing Organization Address City/State/ZIP Code Phon e Number [facility] [address] [address] OB CLINIC ULTRASOUND LIMITED (04/10/2022) Anatomical Region Laterality Modality Other Impressions 04/10/2022 Viable IUP, breech presentation. Gross m ovement seen. FHR 167 BPM. Posterior/lateral placenta. Adriana Neely MD PN CLINIC US ORDERABLES [...] applicable documented in this encounter Care Teams Commodity Director Relationship Specialty Start Date End Date Unassigned, Provider PCP - General 08/26/[address] [place] [id number] documented as of this encounter
--- OUTSIDE RECORDS SUMMARY | 2022-10-10 23:55 | XMS_ITS | Encounter Summary ---
:1995 Author Organization [employer] Address [address] [place] [address] Care Team Providers Name Role Phone Unassigned, Provider Primary Care Provider Unavailable Encounter Details Date Type Department Care Team Description 03/10/2022 Lab Visit [facility] high risk [facility] in first [address] [facility], [address] [place] [address] Social History Tobacco Use Types Packs/Day Years Used Date Smoking Tobacco: Never Smokeless Tobacco: Never Alcohol Use Standard Drinks/Week Comments Not Currently 0 (1 standard drink = 0.6 oz pure alcoho l) Sex Assigned at Date Recorded Not on file documented as of this encounter Plan of Treatment Upcoming Encounters Date Type Specialty Care Team Description 12/02/2022 Appointment Obstetrics & Gynecology [place], [place] [address] [facility] [address] [place], [place] [address] (Wo rk) documented as of this encounter Procedures Procedure Name Priority Date/Time Associated Comments Diagnosis RUBELLA IMMUNE STATUS, Routine 03/10/2022 1:51 Supervision of high Results for this IGG PM CDT risk in procedure are in first trimester the results section. URINE CULTURE Routine 03/10/2022 1:51 Supervision of high Resu lts for this PM CDT risk in procedure are in first trimester the results section. ANTIBODY IDENTIFICATION Routine 03/10/2022 1:51 Supervision of high Results for this PM CDT risk in procedure are in first trimester the results section. ANTIBODY SCREEN Routine 03/10/2022 1:51 Supervision of high Re sults for this PM CDT risk in procedure are in first trimester the results section. LEAD, VENOUS Routine 03/10/2022 1:51 Supervision of high Resul ts for this PM CDT risk in procedure are in first trimester the results section. TREPONEMA SCREEN Routine 03/10/2022 1:51 Supervision of high R esults for this PM CDT risk in procedure are in first trimester the results section. BLOOD TYPE Routine 03/10/2022 1:51 Supervision of high Resul ts for this PM CDT risk in procedure are in first trimester the results section. RAPID DRUG PANEL, URINE Routine 03/10/2022 1:51 Supervision of high Results for this (WITH CONFIRMATION) PM CDT risk in pro cedure are in first trimester the results section. HIV 1/2 AG/AB 4TH GEN Routine 03/10/2022 1:51 Supervision of h igh Results for this PM CDT risk in procedure are in first trimester the results section. COMPLETE BLOOD COUNT-NO Routine 03/10/2022 1:51 Supervision of high Results for this DIFF PM CDT risk in procedure are in first trimester the results section. V ZOSTER IMMUNE STATUS, Routine 03/10/2022 1:51 Supervision of high Results for this IGG PM CDT risk in procedure are in first trimester the results section. HEPATITIS C ANTIBODY, Routine 03/10/2022 1:51 Supervision of h igh Results for this WITH REFLEX PM CDT risk in procedure are in first trimester the results section. HBSAG (HEPATITIS B Routine 03/10/2022 1:51 Supervision of high Results for this SURFACE AG) PM CDT risk in procedure are in first trimester the results section. HGB A1C Routine 03/10/2022 1:51 Supervision of high Resul ts for this PM CDT risk in procedure are in first trimester the results section. documented in this encounter Results Antibody Identification (03/10/2022 1:51 PM CDT) Component Value Ref Test Analysis Performed At [facility] Range Method Time Signature Antibody Non Specific 03/10/2022 [facility] Identification Reactivity 10:42 PM BLOOD BANK CDT Specimen Anatomical Collection Method / Collection Time Recei clint Time (Source) Location / Volume Laterality Blood Venipuncture / 03/10/2022 1:51 03/10/2022 1:51 Unknown PM CDT PM CDT Jacinda Knight APRN, CNP LAB_1 Performing Organization Address [facility]/ZIP Code Phon e Number [facility] [address] [place] [address] (ABNORMAL) V Zoster Immune Status, IgG (03/10/2022 1:51 PM CDT) athologist Signature Varicella 87.7 IV 03/11/2022 [facility] Zoster Units 11:34 AM CDT LABORATORY Comment: The magnitude of the measured r esult, above the cutoff, is not indicative of the amount of antibody present. Varicella Zoster Not Immune (A) Immune 03/11/2022 11:34 A M [facility] Intepretation CDT LABORATORY Specimen Anatomical Collection Method / Collection Time Recei clint Time (Source) Location / Volume Laterality Blood Venipuncture / 03/10/2022 1:51 03/10/2022 1:51 Unknown PM CDT PM CDT Jacinda Knight APRN, CNP LAB_1 Performing Organization Address [facility] e Number [facility] [address] [place] [address] Lead, Venous (03/10/2022 1:51 PM CDT) athologist Signature Lead, Whole <2.0 <=4.9 03/13/2022 [facility] B[facility] Venous ug/dL 10:24 AM CDT LABORATORIES Comment: INTERPRETIVE INFORMATION: Lead, Blood (V enous) Elevated results may be due to skin or c ollection-related contamination, including the use of a no ncertified lead-free tube. If contamination concerns exist due to e levated levels of blood lead, confirmation with a second specime n collected in a certified lead-free tube is recommended. Information sources for blood lead refer ence intervals and interpretive comments include the CDC's Childhood Lead Poisoning Prevention: Recommended Actions Based on Blood Lead Level and the Adult Blood Lead Epidemiology and Surve illance: Reference Blood Lead Levels (BLLs) for Adults in the [place] . Thresholds and time intervals for retesting, medical evaluat ion, and response vary by state and regulatory body. Contact your State Department of Health and/or applicable regulatory agency for specific guidance on medical management recommendations. This test was developed and its performa nce characteristics determined by [employer]. It has not been cleared or approved by the U.S. Food and Drug Admin istration. This test was performed in a CLIA-certified laboratory and is intended for clinical purposes. Group ?Concentration ?? Com ment Children ? 3.5-19.9 ug/dL ??Child mehdi under the age of 6 ? years are the most vulnerable ? to the harmful effects of ? lead exposure. Environmental ? investigation and exposure ? history to identify potential ? sources of lead. Biological ? and nutritional monitoring ? are recommended. Follow-up ? blood lead monitoring is ? recommended. ? 20-44.9 ug/dL ?? L ead hazard reduction and ? prompt medical evaluation are ? recommended. Contact a ? Pediatric Environmental ? Health Specialty Unit or ? poison control center for ? guidance. ? Greater than ? Critical. Immediate medical ? 44.9 ug/dL ?evaluation, including ? detailed neurological exam is ? recommended. Consider ? chelation therapy when ? symptoms of lead toxicity are ? present. Contact a Pediatric ? Environmental Health ? Specialty Unit or poison ? control center for ? assistance. Adult ?5-19.9 ug/dL ?Me dical removal is ? recommended for ? women or those who are trying ? or may become . ? Adverse health effects are ? possible. Reduced lead ? exposure and increased blood ? lead monitoring are ? recommended. ? 20-69.9 ug/dL ?? A dverse health effects are ? indicated. Medical removal ? from lead exposure is ? required by OSHA if blood ? lead level exceeds 50 ug/dL. ? Prompt medical evaluation is ? recommended. ? Greater than ? Critical. Immediate medical ? 69.9 ug/dL ?evaluation is recommended. ? Consider chelation therapy ? when symptoms of lead ? toxicity are present. Performed By: [facility] [address] [place] [id number] Entry Analyst: Susan Cope MD Specimen Anatomical Collection Method / Collection Time Recei clint Time (Source) Location / Volume Laterality Blood Venipuncture / 03/10/2022 1:51 03/10/2022 1:51 Unknown PM CDT PM CDT Jacinda Knight APRN, CNP LAB_1 Performing Organization Address [facility] Phon e Number [facility] [address] [place] [address] [phone] Treponema Screen (Syphilis) (03/10/2022 1:51 PM CDT) [facility] Method Time Signature Treponema Screen 0.031 {s_co_ratio 03/10/2022 [facility] Result } 8:13 PM CDT LABORATORY Treponema Screen Non Non 03/10/2022 [facility] Interpretation Reactive Reactive 8:13 PM CDT LABORATORY Specimen Anatomical Collection Method / Collection Time Recei clint Time (Source) Location / Volume Laterality Blood Venipuncture / 03/10/2022 1:51 03/10/2022 1:51 Unknown PM CDT PM CDT Jacinda J Gave BEATING MACHINE OPERATOR, QUALITY CONTROL TECHNICIAN LAB_1 Performing Organization Address City/State/ZIP [facility] Phon e Number [facility] [address] [place] [address] Urine Culture (03/10/2022 1:51 PM CDT) [facility] Method Time Signature Urine Culture Urogenital 03/11/2022 [facility] Vicky 4:15 PM CDT HOSPITAL Specimen Anatomical Collection Method Collection Time Receive d Time (Source) Location / / Volume Laterality Urine URINE SPECIMEN Non-blood 03/10/2022 1:51 PM 022 1:51 COLLECTION, CLEAN Collection / CDT PM CDT CATCH / Unknown Unknown Jacinda Knight APRN, CNP LAB_1 Performing Organization Address [facility] Phon e Number [address] [address] Rubella Immune Status, IgG (03/10/2022 1:51 PM CDT) athologist Signature Rubella Units 3.21 03/11/2022 [facility] 11:52 AM CDT LABORATORY Comment: The magnitude of the measured r esult, above the cutoff, is not indicative of the amount of antibody present. Rubella Intepretation Immune Immune 03/11/2022 11: 52 AM CDT [facility] Specimen Anatomical Collection Method / Collection Time Recei clint Time (Source) Location / Volume Laterality Blood Venipuncture / 03/10/2022 1:51 03/10/2022 1:51 Unknown PM CDT PM CDT Jacinda Knight APRN, CNP LAB_1 Performing Organization Address [facility] Phon e Number [facility] [address] [place] [address] Rapid Drug Panel, Urine (with Confirmation) (03/10/2022 1:51 PM CDT) [facility] Method Time Signature Amphetamines Not Not 03/10/2022 [facility] Screen Detected Detected 7:45 PM CDT LABORATORY Barbiturates Not Not 03/10/2022 [facility] Screen Detected Detected 7:45 PM CDT LABORATORY Benzodiazepines Not Not 03/10/2022 [facility] Screen Detected Detected 7:45 PM CDT LABORATORY Buprenorphine Not Not 03/10/2022 [facility] Screen Detected Detected 7:45 PM CDT LABORATORY Cocaine Metabolite Not Not 03/10/2022 [facility] Screen Detected Detected 7:45 PM CDT LABORATORY Methadone Screen Not Not 03/10/2022 [facility] Detected Detected 7:45 PM CDT LABORATORY Opiates Screen Not Not 03/10/2022 [facility] Detected Detected 7:45 PM CDT LABORATORY Oxycodone Screen Not Not 03/10/2022 [facility] Detected Detected 7:45 PM CDT LABORATORY Phencyclidine Not Not 03/10/2022 [facility] (PCP) Screen Detected Detected 7:45 PM CDT LABORATORY THC (Marijuana) Not Not 03/10/2022 [facility] Metab Screen Detected Detected 7:45 PM CDT LABORATORY Creatinine, Urine, 41 >20 mg/dL 03/10/2022 [facility] Random 7:45 PM CDT LABORATORY Specimen Anatomical Collection Method Collection Time Receive d Time (Source) Location / / Volume Laterality Urine Non-blood 03/10/2022 1:51 PM 1:51 Collection / CDT PM CDT Unknown Narrative [facility] - 03/10/2022 7:45 P M CDT The absence of expected drug(s) and/or d rug metabolite(s) may indicate non-compliance, inappropriate timing of specimen collection relative to drug administration, poor drug absorption, di luted/adulterated urine or limitations of testing. The concentration must be great er than or equal to the cutoff concentration to be reported as positive. For medical purposes only: not valid for forensic, legal, or employment use. Jacinda Knight BEATING MACHINE OPERATOR, QUALITY CONTROL TECHNICIAN LAB_1 Performing Organization Address City/State/ZIP Code Phon e Number [facility] [address] [place] [address] HIV 1/2 Ag/Ab 4th Generation (03/10/2022 1:51 PM CDT) [facility] Method Time Signature HIV 1/2 Negative Negative 03/10/2022 [facility] Antigen/Antib (Non (Non 8:07 PM CDT LABORATORY cricket (4th Reactive) Reactive) generation) Comment: HIV-1 p24 Antigen and HIV-1/HIV -2 Antibody not detected Specimen Anatomical Collection Method / Collection Time Recei clint Time (Source) Location / Volume Laterality Blood Venipuncture / 03/10/2022 1:51 03/10/2022 1:51 Unknown PM CDT PM CDT Jacinda Knight APRN, CNP LAB_1 Performing Organization Address City/[facility] Phon e Number [facility] [address] [place] [address] Hgb A1C (03/10/2022 1:51 PM CDT) [facility] Hemoglobin A1C 5.2 <=5.6 % 03/11/2022 [facility] 10:14 AM CDT CENTRAL LAB Specimen Anatomical Collection Method / Collection Time Recei clint Time (Source) Location / Volume Laterality Blood Venipuncture / 03/10/2022 1:51 03/10/2022 1:51 Unknown PM CDT PM CDT Jacinda Knight APRN, CNP LAB_1 Performing Organization Address [facility] Phon e Number [facility] CENTRAL LAB [address] [address] Hepatitis C Antibody, with Reflex (03/10/2022 1:51 PM CDT) [facility] Signature Hepatitis C Negative Negative 03/10/2022 [facility] Antibody (Non (Non 8:07 PM CDT LABORATORY Reactive) Reactive) Comment: Antibodies to HCV not detected. Does not exclude the possiblity of exposure to HCV. Specimen Anatomical Collection Method / Collection Time Recei clint Time (Source) Location / Volume Laterality Blood Venipuncture / 03/10/2022 1:51 03/10/2022 1:51 Unknown PM CDT PM CDT Jacinda Knight APRN, CNP LAB_1 Performing Organization Address City/[facility] Phon e Number [facility] [address] [place] [address] Hepatitis B Surface Antigen (03/10/2022 1:51 PM CDT) [facility] Signature Hepatitis B Negative Negative 03/10/2022 [facility] Surface (Non (Non 7:51 PM CDT LABORATORY Antigen Reactive) Reactive) Specimen Anatomical Collection Method / Collection Time Recei clint Time (Source) Location / Volume Laterality Blood Venipuncture / 03/10/2022 1:51 03/10/2022 1:51 Unknown PM CDT PM CDT Jacinda Knight APRN, CNP LAB_1 Performing Organization Address [facility] Phon e Number [facility] [address] [place] [address] (ABNORMAL) Complete Blood Count-No Diff (03/10/2022 1:51 PM CDT) [facility] Method Time Signature WBC 11.0 (H) 3.5 - 10.5 03/10/2022 [facility] x10(9)/L 7:09 PM CDT LABORATORY RBC 4.52 3.90 - 03/10/2022 [facility] 5.03 7:09 PM CDT LABORATORY x10(12)/L Hemoglobin 14.0 12.0 - 03/10/2022 [facility] 15.5 g/dL 7:09 PM CDT LABORATORY HCT 41.6 34.9 - 03/10/2022 [facility] 44.5 % 7:09 PM CDT LABORATORY MCV 92.0 80.0 - 03/10/2022 [facility] 100.0 fL 7:09 PM CDT LABORATORY MCH 31.0 27.6 - 03/10/2022 [facility] 33.3 pg 7:09 PM CDT LABORATORY MCHC 33.7 31.5 - 03/10/2022 [facility] 35.2 g/dL 7:09 PM CDT LABORATORY RDW 13.1 11.9 - 03/10/2022 [facility] 15.5 % 7:09 PM CDT LABORATORY Platelets 312 150 - 450 03/10/2022 [facility] x10(9)/L 7:09 PM CDT LABORATORY Automated NRBC 0 <=0 /100 03/10/2022 [facility] WBC 7:09 PM CDT LABORATORY Specimen Anatomical Collection Method / Collection Time Recei clint Time (Source) Location / Volume Laterality Blood Venipuncture / 03/10/2022 1:51 03/10/2022 6:25 Unknown PM CDT PM CDT Jacinda Knight APRN, CNP LAB_1 Performing Organization Address [facility] Phon e Number [facility] [address] [place] [address] Blood Type (03/10/2022 1:51 PM CDT) P athologist Signature ABO O 03/10/2022 [facility] 8:40 PM CDT BLOOD BANK RH Positive 03/10/2022 [facility] 8:40 PM CDT BLOOD BANK Specimen Anatomical Collection Method / Collection Time Recei clint Time (Source) Location / Volume Laterality Blood Venipuncture / 03/10/2022 1:51 03/10/2022 1:51 Unknown PM CDT PM CDT Jacinda Knight APRN, CNP LAB_1 Performing Organization Address [facility] Phon e Number [facility] [address] [place] [address] Antibody Screen (03/10/2022 1:51 PM CDT) Patholo gist Method Time Signature Antibody Screen Positive 03/10/2022 [facility] Interpretation 8:41 PM CDT BLOOD BANK Specimen Anatomical Collection Method / Collection Time Recei clint Time (Source) Location / Volume Laterality Blood Venipuncture / 03/10/2022 1:51 03/10/2022 1:51 Unknown PM CDT PM CDT Jacinda Knight APRN, CONSTANCE LAB_1 Performing Organization Address [facility] Phon e Number [facility] [address] [place] [address] documented in this encounter Visit Diagnoses Diagnosis Supervision of high risk in rst trimester Unspecified high-risk documented in this encounter Care Teams Personal Lines Insurance Agent Relationship Specialty Start Date End Date Unassigned, Provider PCP - General 08/26/[address] [place] [phone] documented as of this encounter
--- OUTSIDE RECORDS SUMMARY | 2022-10-10 23:55 | XMS_ITS | Encounter Summary ---
:1995 Author Organization [employer] Address [address] [place] [address] Care Team Providers Name Role Phone Unassigned, Provider Primary Care Provider Unavailable Encounter Details Date Type Department Care Team Description 05/22/2021 Notes/Orders [place] [address] [address] for Pediatrics MD screening examination [address] [address] [facility] [address] for other mental [place], [place] health and be havioral [phone] disorders (Primary Dx) [phone] Social History Tobacco Use Types Packs/Day Years [...] Appointment Obstetrics & [place] [address] [facility] R [address] [address] (Wo rk) documented as of this encounter Visit Diagnoses Diagnosis Encounter for screening examination for other mental health and behavioral disorders - Primary documented in this encounter Care Teams Supervisor Press Room Relationship Specialty Start Date End Date Unassigned, Provider PCP - General 08/26/[address] [place] [phone] documented as of this encounter
--- OUTSIDE RECORDS SUMMARY | 2022-10-10 23:55 | XMS_ITS | Encounter Summary ---
:1995 Author Organization [employer] Address [address] [place] [address] Care Team Providers Name Role Phone Unassigned, Provider Primary Care Provider Unavailable Reason for Visit Reason Comments Routine Visit [id number] Encounter Details Date Type Department Care Team Description 04/11/2021 Routine [facility] Jeni Lopez MD Routine Services-[facility] [address] [facility] Visit (39w4d) [address], [address] [place] [phone] Social History Tobacco Use Types Packs/Day Years Used Date Smoking Tobacco: Never Smokeless Tobacco: Never Alcohol Use Standard Drinks/Week Comments Not Currently 0 (1 standard drink = 0.6 oz pure alcoho l) Sex Assigned at Date Recorded Not on file documented as of this encounter Last Filed Vital Signs Vital Sign Reading Time Taken Comments Blood Pressure 119/65 04/11/2021 9:29 AM CDT Pulse 87 04/11/2021 9:29 AM CDT Temperature - - Respiratory Rate - - Oxygen Saturation - - Inhaled Oxygen Concentration - - Weight 89.1 kg (196 lb 6.4 oz) 04/11/2021 9:29 AM CDT Height - - Body Mass Index 35.92 11/20/2020 8:10 AM LEARNING DESIGN SPECIALIST documented in this encounter Progress Notes Jeni Lopez MD - 04/11/2021 9:30 AM CDT [facility] ?? CC: Follow-up care ?? S: Yancy Watts is feeling ok today. Noting a lot more left sided knee and hip pain.Occasional contractions. She denies loss of fluid or vaginal bleeding. Reports good movement. No VEGA, vision changes, SOB, CP. ?? complications: - Late ZOE at 19 weeks - Vaginismus, saw pelvic floor PT - COVID 19 in 1st trimester ?? O: Vitals: 04/11/21 0929 BP: 119/65 Pulse: 87 Gen: alert, oriented, NAD See OB flowsheet Cvx: 0/30/-4 ?? A/P: 25 y.o. at 39w4d by LMP c/w 11w1d US presenting for follow-up care. Care: -OB labs reviewed: O positive, Rubella immune, HIV neg, Heb B nonreactive, Heb B immune, RPR negative -Genetics: Declined -Anatomy ultrasound: L2 with normal anatomy, posterior placenta, Girl! - Rh positive, Rhogam not indicated - GCT 84, Hgb 12.3 - S/p flu, Tdap 02/07/21 - GBS neg - Feed: Breast with pumping, has breast pump - Continue PNV - Contraception: Condoms. IPI of 18 months reviewed. COVID in early : - Growth US 02/21 EFW 2062g, 48%, MAURICE 11 - Declines covid vaccine at this time PUPPS, improving - Kenalog 0.1% ointment PRN Follow-up in clinic in 1 week, scheduled. Would like 2 weeks follow-up Jeni Lopez MD documented in this encounter Plan of Treatment Upcoming Encounters Date Type Specialty Care Team Description 12/02/2022 Appointment Obstetrics & [place] [address] [address] (Wo rk) documented as of this encounter Visit Diagnoses Diagnosis Vaginismus Encounter for supervision of normal firs t in second trimester Supervision of normal first documented in this encounter Care Teams Computer Systems Integrator Relationship Specialty Start Date End Date Unassigned, Provider PCP - General 08/26/[address] [place] [address] documented as of this encounter
--- OUTSIDE RECORDS SUMMARY | 2022-10-10 23:55 | XMS_ITS | Encounter Summary ---
:1995 Author Organization [employer] Address [address] [place] [address] Care Team Providers Name Role Phone Unassigned, Provider Primary Care Provider Unavailable Encounter Details Date Type Department Care Team Description 04/10/2022 Notes/Orders [facility] PostelJonathan, Super vision of high risk in first trimester; Services-FLASK CARRIER STEAM BRUSH OPERATOR Short interval between pregn ancies affecting in first trimester, antepartum [address] [phone] Social History Tobacco Use Types Packs/Day Years [...] Obstetrics & Gynecology O'[place], [place] [address] [address] (Wo rk) documented as of this encounter Procedures Procedure Name Priority Date/Time Associated Diagnosis Comme nts CHLAMYDIA & GC (14 Routine 04/10/2022 12:53 PM Supervision of high Results for this YEARS AND OLDER) CDT risk in proced ure are in first trimester the results Short interval section. between pregnancies affecting in first trimester, antepartum documented in this encounter Results Chlamydia & GC (14 Years and Older) (04/10/2022 12:53 PM CDT) [facility] Method Time Signature Chlamydia Not Not 04/11/2022 [facility] Trachomatis Detected Detected 2:00 PM CDT CENTRAL LAB STD N. gonorrhoeae Not Not 04/11/2022 [facility] STD Detected Detected 2:00 PM CDT CENTRAL LAB Specimen Anatomical Collection Method Collection Time Receive d Time (Source) Location / / Volume Laterality Swab STD SPECIMEN FROM Non-blood 04/10/2022 12:53 04/10/2022 1:09 VAGINA / Unknown Collection / PM CDT PM CDT Unknown Narrative [facility] - 04/11/2022 2:00 PM CDT Test performed by Correctional Food Service Supervisor Mediated Amplification (TMA). Adriana Neely MD LAB_1 Performing Organization Address City/State/ZIP Code Phon e Number [facility] [address] [phone] documented in this encounter Visit Diagnoses Diagnosis Supervision of high risk in fi rst trimester Unspecified high-risk Short interval between pregnancies affec ting in first trimester, antepartum documented in this encounter Care Teams Pipeliner Relationship Specialty Start Date End Date Unassigned, Provider PCP - General 08/26/00 [address] [place] [address] documented as of this encounter
--- OUTSIDE RECORDS SUMMARY | 2022-10-10 23:55 | XMS_ITS | Encounter Summary ---
:1995 Author Organization [employer] Address [address] [place] [address] Care Team Providers Name Role Phone Unassigned, Provider Primary Care Provider Unavailable Reason for Visit Reason Comments Eye Exam Encounter Details Date Type Department Care Team Description 06/10/2022 Office Visit [place] [address] Cara Potts, OD Examination of eyes and vision (Primary Dx); Ophthalmology [address] Myopia of both eyes; [address] [place] of [place] [address] [phone] (Wo rk) Social History Tobacco Use Types Packs/Day Years Used Date Smoking Tobacco: Never Smokeless Tobacco: Never Alcohol Use Standard Drinks/Week Comments Not Currently 0 (1 standard drink = 0.6 oz pure alcoho l) Sex Assigned at Date Recorded Not on file documented as of this encounter Progress Notes Cara Potts, OD - 06/10/2022 8:30 AM CDT Patient is alert and feels well. Medical history, current medications, and allergies reviewed. Routine eye exam. Assessment: ICD-10-CM 1. Examination of eyes and vision Z01.00 Refractive State, Determination Of - Bilateral 2. Myopia of both eyes H52.13 Refractive State, Determination Of - Bilateral 3. Family history of glaucoma Z83.511 Plan: 1-2. Discussed findings with patient. Rx given for new glasses if desired. Updated CLRx given today by tech. 3. Normal IOP and healthy ONH. Monitor IOP annually. RTC 1 year or sooner as needed. documented in this encounter Plan of Treatment Upcoming Encounters Date Type Specialty Care Team Description 12/02/2022 Appointment Obstetrics & Gynecology [place] [address] [address] (Wo rk) documented as of this encounter Visit Diagnoses Diagnosis Examination of eyes and vision - Primary Myopia of both eyes Myopia Family history of glaucoma documented in this encounter Care Teams Recreational Assistant Relationship Specialty Start Date End Date Unassigned, Provider PCP - General 08/26/00 [address] [place] [address] documented as of this encounter
--- OUTSIDE RECORDS SUMMARY | 2022-10-10 23:55 | XMS_ITS | Encounter Summary ---
:1995 Author Organization [employer] Address [address] [place] [address] Care Team Providers Name Role Phone Unassigned, Provider Primary Care Provider Unavailable Reason for Visit Reason Comments Breast Problem Encounter Details Date Type Department Care Team Description 08/14/2021 Nurse Triage [facility] O'Adriana Diggs, Breast Problem Services-AUTO PAINTER [address] [facility], [address] [place] [address] [address] [place], [place] [id number] [phone] Social History Tobacco Use Types Packs/Day Years Used Date Smoking Tobacco: Never Smokeless Tobacco: Never Alcohol Use Standard Drinks/Week Comments Not Currently 0 (1 standard drink = 0.6 oz pure alcoho l) Sex Assigned at Date Recorded Not on file documented as of this encounter Nursing Notes Brenda Sanchez RN - 08/14/2021 3:35 PM CDT Reason for Disposition ??? Breast lump Protocols used: BREAST [id number] Pt calling, is 4 months and . Has had a saturnino-sized bump on right areola x3 days. Bump is red in color, mildly painful to the touch, seems to be located quite superficially. Pt has had clogged milk ducts in the past, says this is much different. Denies fever, chills, myalgia, other systemic symptoms. No nipple bleeding or discoloration of milk, although production on right side has decreased somewhat. Recommend evaluation within 3 days per protocol, but scheduled per pt availability: Future Appointments Date Time Provider Department Center 08/20/2021 11:30 AM Adriana Neely MD [facility] OB PN DIMAS FR Reviewed warning signs and when to call. Patient verbalizes understanding and has no further questions. documented in this encounter Plan of Treatment Upcoming Encounters Date Type Specialty Care Team Description 12/02/2022 Appointment Obstetrics & [place] [address] [address] (Wo rk) documented as of this encounter Visit Diagnoses Not on filedocumented in this encounter Care Teams Broadband Technician Relationship Specialty Start Date End Date Unassigned, Provider PCP - General 08/26/[address] [place] [address] documented as of this encounter
--- OUTSIDE RECORDS SUMMARY | 2022-10-10 23:55 | XMS_ITS | Encounter Summary ---
:1995 Author Organization [employer] Address [address] [place] [address] Care Team Providers Name Role Phone Unassigned, Provider Primary Care Provider Unavailable Encounter Details Date Type Department Care Team Description 08/29/2021 Notes/Orders [place] [address] [address] [facility] for Pediatrics MD screening examination [address] [facility] [address] [facility] for mental health and [place], [place] behavioral di sorders [id number] (Primary Dx) [phone] Social History Tobacco Use Types Packs/Day Years [...] Appointment Obstetrics & [place] [address] [address] (Wo rk) documented as of this encounter Visit Diagnoses Diagnosis Encounter for screening examination for mental health and behavioral disorders - Primary documented in this encounter Care Teams Ballpoint Pens Assembler Relationship Specialty Start Date End Date Unassigned, Provider PCP - General 08/26/[address] [place] [address] documented as of this encounter
--- OUTSIDE RECORDS SUMMARY | 2022-10-10 23:55 | XMS_ITS | Encounter Summary ---
:1995 Author Organization [employer] Address [address] [place] [address] Care Team Providers Name Role Phone Unassigned, Provider Primary Care Provider Unavailable Reason for Referral Consult/Transfer Care (Routine) - Closed Specialty Diagnoses / Procedures Referred By Contact Refer red To Contact [place] [address] [place] [address] Referral ID Status Reason Start Date Expiration Date Visits Requ ested Visits Authorized [id number] Closed 06/11/2021 09/10/2022 1 1 Scheduling Instructions Your provider has recommended an appoint ment with Karen Euceda. You may call [phone] to schedule your appoi ntment. We suggest you call your health insurance company about your coverage an d benefits for this appointment. Reason for Visit Reason Comments POST- Encounter Details Date Type Department Care Team Description 06/11/2021 Visit [facility] Adriana Neely POST - Services-PACKAGE DYER MD Marisela [address] [facility], [address] [place], [place] [phone] Social History Tobacco Use Types Packs/Day Years Used Date Smoking Tobacco: Never Smokeless Tobacco: Never Alcohol Use Standard Drinks/Week Comments Not Currently 0 (1 standard drink = 0.6 oz pure alcoho l) Sex Assigned at Date Recorded Not on file documented as of this encounter Last Filed Vital Signs Vital Sign Reading Time Taken Comments Blood Pressure 110/64 06/11/2021 3:50 PM CDT Pulse 93 06/11/2021 3:50 PM CDT Temperature 36.7 ??C (98 ??F) 06/11/2021 3:50 PM CDT Respiratory Rate - - Oxygen Saturation - - Inhaled Oxygen Concentration - - Weight 78.9 kg (174 lb) 06/11/2021 3:50 PM CDT Height - - Body Mass Index 31.83 11/20/2020 8:10 AM GRADUATING MACHINE OPERATOR documented in this encounter Patient Instructions Patient ThuyOAdriana Ross MD - 06/11/2021 4:00 PM CDT Images from the original note were not included. Constipation: Care Instructions Your Care Instructions Constipation means that you have a hard time passing stools (bowel movements). People pass stools from 3 times a day to once every 3 days. What is normal for you may be different. Constipation may occur with pain in the rectum and cramping. The pain may get worse when you try to pass stools. Sometimesthere are small amounts of bright red blood on toilet paper or the surface of stools. This is because of enlarged veins near the rectum (hemorrhoids). A few changes in your diet and lifestyle may help you avoid ongoing constipation. Your doctor may also prescribe medicine to help loosen your stool. Some medicines can cause constipation. These include pain medicines and antidepressants. Tell your doctor about all the medicines you take. Your doctor may want to make a medicine change to ease your symptoms. Follow-up care is a norman part of your treatment and safety. Be sure to make and go to all appointments, and call your doctor if you are having problems. It's also a good idea to know your test results and keep a list of the medicines you take. How can you care for yourself at home? ?? Drink plenty of fluids. If you have kidney, heart, or liver disease and have to limit fluids, talk with your doctor before you increase the amount of fluids you drink. ?? Include high-fiber foods in your diet each day. These include fruits, vegetables, beans, and whole grains. ?? Get at least 30 minutes of exercise on most days of the week. Walking is a good choice. You also may want to do other activities, such as running, swimming, cycling, or playing tennis or team sports. ?? Take a fiber supplement, such as Citrucel or Metamucil, every day. Read and follow all instructions on the label. ?? Schedule time each day for a bowel movement. A daily routine may help. Take your time having yourbowel movement. ?? Support your feet with a small step stool when you sit on the toilet. This helps flex your hips and places your pelvis in a squatting position. ?? Your doctor may recommend an [id number] laxative to relieve your constipation. Examples areMilk of Magnesia and MiraLax. Read and follow all instructions on the label. Do not use laxatives destin long-term basis. When should you call for help? Call your doctor now or seek immediate medical care if: ? You have new or worse belly pain. ? You have new or worse nausea or vomiting. ? You have blood in your stools. Watch closely for changes in your health, and be sure to contact your doctor if: ? Your constipation is getting worse. ? You do not get better as expected. Where can you learn more? 1. Go to https://www.Gro[employer].Yammer/healthlibrary. 2. Enter P343 in the search box. Current as of: January 18, 2020?Content Version: 12.8 ?? [employer]. Care instructions adapted under license by your healthcare professional. If you have questions abouta medical condition or this instruction, always ask your healthcare professional. [employer] disclaims any warranty or liability for your use of this information. documented in this encounter Progress Notes Adriana Neely MD - 06/11/2021 4:00 PM CDT [facility] CC: visit Subjective Yancy Watts is a 26 y.o. who presents for her 6 week visit. complications: -??Late ZOE at 19 weeks - Vaginismus, saw pelvic floor PT - COVID 19 in 1st trimester She had a Female Stacie infant by PLTCS on 04/22/2021 at 41w1d for arrest of descent, and Cat 2 FHR following IOL for late term gestation. She desirescondoms for contraception. She is breast feeding, thinks she may have plugged duct on the left. Her infant is doing well. She has not had intercourse. She has not had a menses. She has not had any blues. She has good bowel and bladder function now, but did have hemorrhoids a couple of weeks ago. She has no other complaints. - Stretch lowe on legs hurt; has tried oil and lotions but no luck. What can she do? It almost feels like her skin in tearing out. Last Pap: NILM in 08/2018 GDM: No Objective BP 110/64 (BP Location: Right Arm, BP Cuff Size: Large) Pulse 93 Temp 36.7 ??C (98 ??F) (Oral) Wt 174 lb (78.9 kg) LMP 07/08/2020 (Exact Date) Unknown BMI 31.83 kg/m?? Gen: well developed, well nourished in no acute distress Breasts: symmetric, nontender, no lymphadenopathy, or discharge. On the left breast, at 5 o'clock position approximately 3 cm, is an approximately 1 cm superficial nodule, consistent a plugged duct. Abd: Soft, nontender, no masses Incision: Well-healed Pfannenstiel incision, without evidence of dehiscence or other : External genitalia within normal limits. Bartholin's, Finklea's, urethral meatus are all normal. Normal vaginal mucosa and discharge. Cervix is without lesions. A Pap smear was obtained. Bimanual exam: Uterus is midline, mobile, nontender, not enlarged. There are no adnexal masses or tenderness appreciated. Bladder and urethra are nontender without masses. Of note, the patient did have notable discomfort with this exam, consistent with her history of vaginismus. Assessment 1. visit s/p PLTCS 2. Contraception counseling; declines. Will use condoms. Aware of 18 month IPI recommendation 3. Depression screening; EPDS score of 0 today 4. Cervical cancer screening; pap completed today 5. Painful stretch lowe/residual PUPPS; Dermatology referral placed 6. Clogged duct; recommendations for hand expression, continuing feeding, warm compresses, as well as Tylenol and ibuprofen were reviewed. Warning signs of mastitis and when to call back were also reviewed. 7. Vaginismus; I strongly recommended the patient to reach out to physical therapy to initiate sessions following delivery. She states she will do this. Return for next annual exam in 12 months. Adriana Neely MD P: [phone] 06/11/2021 4:17 PM Dictation Disclaimer: Some notes are completed with voice-recognition dictation software. Typographical errors may result . Please contact me via [employer] staff message if you note any errors requiring clarification. documented in this encounter Plan of Treatment Upcoming Encounters Date Type Specialty Care Team Description 12/02/2022 Appointment Obstetrics & [place] [address] [address] [address] (Wo rk) Scheduled Referrals Name Type Priority Associated Diagnoses Order S chedule Dermatology Referral Routine Stretch lowe Ordered: 06/11 Consult-Adult/Peds documented as of this encounter Procedures Procedure Name Priority Date/Time Associated Diagnosis Comme nts PAP TEST Routine 06/11/2021 4:42 PM Screening for Results for this CDT malignant neoplasm of proced ure are in the cervix results section . documented in this encounter Results PAP Test (06/11/2021 4:42 PM CDT) Component Value Ref Test Analysis Performed At [facility] Method Time Signature Case Report Pap ? Case: [id number] ? 06/19/2021 [facility] Authorizing Provider: ??Keith mast, Adriana Antonio MD ??Collected: ? 06/11/2021 1642 ? 12:00 PM LABORAT ORY [facility] ? Received: ?06/11/2021 1654 ? CDT ? Services-PACKAGE DYER ? First Screen: ? Nault, Adele E, CT (ASCP) ? Specimen: ?Pap Test, Rou cherelle, Cervix/Endocervix ? Pap Specimen Satisfactory for 06/19/2021 [facility] Adequacy evaluation, 12:00 PM LABORATORY endocervical/schumacher CDT sformation zone component present. Pap Negative for 06/19/2021 [facility] Electr onically Interpretation intraepithelial 12:00 PM LABORATOR Y signed by lesion or CDT Nault, Chl oe E, malignancy CT (ASCP) on (NILM). 06/19/2021 at 12:00 PM Pap Disclaimer The Pap test is a 06/19/2021 METHOD IST screening test 12:00 PM LABORATORY designed to aid CDT in the detection of cervical cancer and its precursor lesions. It is not a diagnostic procedure and should not be used as the sole means of detecting cervical cancer. Both false-positive and false-negative results may occur. Gross The specimen is 06/19/2021 [facility] Description received in 12:00 PM LABORATORY SurePath fixative CDT and properly labeled. 1 Pap-stained SurePath slide is prepared. Embedded Images 06/19/2021 [facility] 12:00 PM LABORATORY CDT Specimen Anatomical Collection Method Collection Time Receive d Time (Source) Location / / Volume Laterality Other Specimen ENTIRE ENDOCERVIX 06/11/2021 4:42 PM 4:54 Type / Unknown CDT PM CDT Comment: LMP: Patient's last menstrual p eriod was 07/08/2020 (exact date). Adriana Neely MD LAB PATHOLOGY Performing Organization Address City/State/ZIP Code Phon e Number [facility] [address] [place] [address] documented in this encounter Visit Diagnoses Diagnosis Encounter for routine follow- up - Primary Routine follow-up Stretch lowe Striae atrophicae PUPP (pruritic urticarial papules and pl aques of ) Other specified complication of pregnanc y, unspecified as to episode of care H/O: section Other postprocedural status Screening for malignant neoplasm of cerv ix Screening for malignant neoplasm of the cervix Vaginismus documented in this encounter Care Teams Cleaning Team Member Relationship Specialty Start Date End Date Unassigned, Provider PCP - General 08/26/[address] [place] [address] documented as of this encounter
--- OUTSIDE RECORDS SUMMARY | 2022-10-10 23:55 | XMS_ITS | Encounter Summary ---
:1995 Author Organization [employer] Address [address] [place] [place] [address] Care Team Providers Name Role Phone Unassigned, Provider Primary Care Provider Unavailable Encounter Details Date Type Department Care Team Description 04/10/2022 Orders Only HIM DEPARTMENT Provider, Alondra perez MD Interface provid er interface provider, LEROY [address] Social History Tobacco Use Types Packs/Day Years [...] Obstetrics & Gynecology O[place], [place] [address] [address] (Wo rk) documented as of this encounter Procedures Procedure Name Priority Date/Time Associated Diagnosis Comme nts ULTRASOUND MS 04/10/2022 Results for th is procedure are in the resu lts section. documented in this encounter Results ULTRASOUND SC (04/10/2022) Anatomical Region Laterality Modality Other Narrative This result has an attachment that is no t available. Interface Provider DUMMY/OTHER/AR documented in this encounter Visit Diagnoses Not on filedocumented in this encounter Care Teams Candy Decorator Relationship Specialty Start Date End Date Unassigned, Provider PCP - General 08/26/[address] [place] [address] documented as of this encounter
--- OUTSIDE RECORDS SUMMARY | 2022-10-10 23:55 | XMS_ITS | Encounter Summary ---
:1995 Author Organization [employer] Address [address] [place] [address] Care Team Providers Name Role Phone Unassigned, Provider Primary Care Provider Unavailable Encounter Details Date Type Department Care Team Description 07/10/2022 Lab Visit [facility] of high risk Services-[facility] in first [address] [facility], [address] [place] [address] Social History Tobacco Use [...] Appointment Obstetrics & [place] [address] [facility] [address] [place], [place] [address] (Wo rk) documented as of this encounter Procedures Procedure Name Priority Date/Time Associated Diagnosis Comme nts RPR WITH REFLEX TO Routine 07/10/2022 11:09 AM Supervision of high Results for this TITER CDT risk in procedure are in first trimester the results section. COMPLETE BLOOD Routine 07/10/2022 11:09 AM Supervision of high Results for this COUNT-NO DIFF CDT risk in procedure are in first trimester the results section. GLUCOSE - 1 HR. Routine 07/10/2022 11:09 AM Supervision of hig h Results for this P.C. PREG CDT risk in procedure are in first trimester the results section. documented in this encounter Results RPR with Reflex to Titer (07/10/2022 11:09 AM CDT) [facility] Method Time Signature RAPID PLASMA Non Reactive Non 07/12/2022 [facility] REAGIN (RPR) Reactive 12:18 AM LABORATORIES CDT Comment: Rapid Plasma Reagin screening test is No n-Reactive. No further reflex testing is required. Performed By: [facility] [address] [place] [address] Ordnance Technician: Tong Peralta MD, PhD Specimen Anatomical Collection Method / Collection Time Recei clint Time (Source) Location / Volume Laterality Blood Venipuncture / 07/10/2022 11:09 2 Unknown AM CDT 11:09 AM CDT Adriana Neely MD LAB_1 Performing Organization Address City/[facility]/ZIP Code Phon e Number [facility] [address] [place], [place] [id number] Glucose - 1 Hr. P.C. Preg (07/10/2022 11:09 AM CDT) P athologist Signature Glucose, 1 101 70 - 135 07/10/2022 [facility] mg/dL 5:03 PM CDT LABORATORY Challenge Specimen Anatomical Collection Method / Collection Time Recei clint Time (Source) Location / Volume Laterality Blood Venipuncture / 07/10/2022 11:09 2 Unknown AM CDT 11:09 AM CDT Adriana Neely MD LAB_1 Performing Organization Address City/State/ZIP Code Phon e Number [facility] [address] [place] [address] (ABNORMAL) Complete Blood Count-No Diff (07/10/2022 11:09 AM CDT) [facility] Method Time Signature WBC 12.6 (H) 3.5 - 10.5 07/10/2022 [facility] x10(9)/L 1:58 PM CDT LABORATORY RBC 3.99 3.90 - 07/10/2022 [facility] 5.03 1:58 PM CDT LABORATORY x10(12)/L Hemoglobin 13.1 12.0 - 07/10/2022 [facility] 15.5 g/dL 1:58 PM CDT LABORATORY HCT 37.2 34.9 - 07/10/2022 [facility] 44.5 % 1:58 PM CDT LABORATORY MCV 93.2 80.0 - 07/10/2022 [facility] 100.0 fL 1:58 PM CDT LABORATORY MCH 32.8 27.6 - 07/10/2022 [facility] 33.3 pg 1:58 PM CDT LABORATORY MCHC 35.2 31.5 - 07/10/2022 [facility] 35.2 g/dL 1:58 PM CDT LABORATORY RDW 13.9 11.9 - 07/10/2022 [facility] 15.5 % 1:58 PM CDT LABORATORY Platelets 227 150 - 450 07/10/2022 [facility] x10(9)/L 1:58 PM CDT LABORATORY Automated NRBC 0 <=0 /100 07/10/2022 [facility] WBC 1:58 PM CDT LABORATORY Specimen Anatomical Collection Method / Collection Time Recei clint Time (Source) Location / Volume Laterality Blood Venipuncture / 07/10/2022 11:09 2 Unknown AM CDT 11:09 AM CDT Adriana Neely MD LAB_1 Performing Organization Address City/State/ZIP Code Phon e Number [facility] [address] [place] [address] documented in this encounter Visit Diagnoses Diagnosis Supervision of high risk in rst trimester Unspecified high-risk documented in this encounter Care Teams Heel Curver Relationship Specialty Start Date End Date Unassigned, Provider PCP - General 08/26/[address] [place] [address] documented as of this encounter
--- OUTSIDE RECORDS SUMMARY | 2022-10-10 23:55 | XMS_ITS | Encounter Summary ---
:1995 Author Organization [employer] Address [address] [place] [address] Care Team Providers Name Role Phone Unassigned, Provider Primary Care Provider Unavailable Encounter Details Date Type Department Care Team Description 10/31/2021 Immunization [facility] Encounter for Medicine administration of vaccine [address] [facility] (Primary Dx) [place] [address] Social History Tobacco Use Types Packs/Day Years [...] Obstetrics & Gynecology [place] [address] [place], [place] [address] (Wo rk) documented as of this encounter Visit Diagnoses Diagnosis Encounter for administration of vaccine - Primary documented in this encounter Care Teams Editorial Specialist Relationship Specialty Start Date End Date Unassigned, Provider PCP - General 08/26/[address] [place] [address] documented as of this encounter
--- OUTSIDE RECORDS SUMMARY | 2022-10-10 23:55 | XMS_ITS | Encounter Summary ---
:1995 Author Organization [facility] Address [address] [place] [address] Care Team Providers Name Role Phone Unassigned, Provider Primary Care Provider Unavailable Encounter Details Date Type Department Care Team Description 10/28/2021 Lab Visit [facility] Contact with and [id number] [address] (suspected) [place] [address] covid-19 Social History Tobacco Use Types Packs/Day Years [...] Obstetrics & Gynecology [place], [place] [id number] [phone] (Wo rk) documented as of this encounter Procedures Procedure Name Priority Date/Time Associated Comments Diagnosis 2019 NOVEL Routine 10/28/2021 2:43 PM Contact with and Resul ts for this CORONAVIRUS BARRELHEAD INSPECTOR (suspected) procedure are i n exposure to the results covid-19 section. documented in this encounter Results Symptomatic - 2019 Novel Coronavirus (COVID-19) (10/28/2021 2:43 PM BARRELHEAD INSPECTOR) [facility] Method Time Signature COVID-19 Not Not 10/29/2021 [facility] Interpretation Detected Detected 7:20 AM [facility] BARRELHEAD INSPECTOR Source Nares, left 10/29/2021 [facility] and right 7:20 AM [facility]RELHEAD INSPECTOR Specimen Anatomical Collection Method Collection Time Receive d Time (Source) Location / / Volume Laterality Swab (Source ENTIRE ANTERIOR Non-blood 10/28/2021 2:43 PM 2020 2:43 Required) NARIS / Unknown Collection / BARRELHEAD INSPECTOR PM BARRELHEAD INSPECTOR Unknown Narrative [facility] - 10/29/2021 7:20 AM BARRELHEAD INSPECTOR Test performed by Supervisor Adult Education Mediated Amplification. TMA has been shown to be equivalent to commercial real-time PCR t ests. This test has been authorized by the FDA under an Emergency Use Authorization (EUA) for use by authorized laboratories. Lukas Rose MD LAB_1 Performing Organization Address City/State/ZIP Code Phon e Number [facility] [address] [address] documented in this encounter Visit Diagnoses Diagnosis Contact with and (suspected) exposure to covid-19 documented in this encounter Additional Health Concerns Infection Onset Date Last Indicated Resolved Time R/O COVID19 10/28/2021 10/28/2021 10/29/2021 7:20 AM BARRELHEAD INSPECTOR documented as of this encounter Care Teams Client Services Analyst Relationship Specialty Start Date End Date Unassigned, Provider PCP - General 08/26/[address] [place] [id number] documented as of this encounter
--- OUTSIDE RECORDS SUMMARY | 2022-10-10 23:55 | XMS_ITS | Encounter Summary ---
:1995 Author Organization [employer] Address [address] [place] [address] Care Team Providers Name Role Phone Unassigned, Provider Primary Care Provider Unavailable Reason for Referral Procedure/Equipment (Routine) - Incomplete Specialty Diagnoses / Procedures Referred By Contact Refer red To Contact Diagnoses Previous section complicating Obesity in Jacinda Knight APRN, Procedures [facility] Level 2 INTERACTIVE MULTIMEDIA DESIGNER [address] [place] [address] Referral ID Status Reason Start Date Expiration Date Visits V isits Requested Authorized [id number] Incomplete 04/02/2022 07/02/2023 10 10 Reason for Visit Reason Comments INITIAL VISIT Encounter Details Date Type Department Care Team Description 03/10/2022 Initial [facility] Jacinda Knight, INITIAL Services-SILVICULTURE FORESTER CONSTANCE AYERS VISIT [address] [address] [address], [address] [place] [address] [phone] Social History Tobacco Use Types Packs/Day Years Used Date Smoking Tobacco: Never Smokeless Tobacco: Never Alcohol Use Standard Drinks/Week Comments Not Currently 0 (1 standard drink = 0.6 oz pure alcoho l) Sex Assigned at Date Recorded Not on file documented as of this encounter Last Filed Vital Signs Vital Sign Reading Time Taken Comments Blood Pressure 126/71 03/10/2022 12:58 PM CDT Pulse 83 03/10/2022 12:58 PM CDT Temperature - - Respiratory Rate - - Oxygen Saturation - - Inhaled Oxygen Concentration - - Weight 76.3 kg (168 lb 3.2 oz) 03/10/2022 12:58 PM CDT Height 157.5 cm (5' 2) 03/10/2022 12:58 PM CDT Body Mass Index 30.76 03/10/2022 12:58 PM CDT documented in this encounter Patient Instructions Patient InstructionsJacinda Knight, [place]RI[place], INTERACTIVE MULTIMEDIA DESIGNER - 03/10/2022 1:00 PM CDT Nausea and Vomiting in Many women have some nausea (and possibly vomiting) in early . If you have tried the usual remedies and are still having trouble eating at all, or keeping it down once you do eat, here are some suggestions: 1. Take your vitamin at bedtime. If you are unable to tolerate your vitamin, take 400 mg of folic acid every day. Women who take vitamins before and in early , have less nausea and vomiting. 2. Try Emetrol (fructose, dextrose and phosphoric acid anti-nausea drink). Keep it cold in the refrigerator and sip it as needed to control feelings of nausea. You may also try flavored sports drinks or Pedialyte. 3. Acupressure wrist bands (brand name Sea-Bands) may help reduce the feelings of nausea without medication. The wrist bands are worn throughout the day. For extra relief, apply more pressure to the button part of the band. You may also do some slow breathing and relaxation exercises. 4. Acupuncture is another option. Your clinician can make a referral to an truss builder if you findthe wrist bands are helping but you need more help controlling your symptoms. 5. Many cultures have used brigitte to control nausea over the centuries. Brigitte may be included in: ?? Food. Be sure to check the label to be sure brigitte is an ingredient and not simply brigitte flavor. ?? Tea. Soak fresh brigitte slices in boiling water for 10 minutes, strain and add honey and/lemon to taste. ?? Supplements. You may take a brigitte supplement in capsule form. Take 250 mg, 4 times a day. ?? Other brigitte products. Many are available, including a brigitte gum from [employer]. 6. Pyridoxine (Vitamin B6) is a water-soluble B-complex vitamin that has been shown to reduce nausea. You can take 10-25 mg every 6-8 hours. It can be taken alone or with 12.5 mg doxylamine succinate, (1/2 tablet of Unisom). If Unisom makes you too sleepy for day time, consider taking it when you are home at the end of the day. 7. Diphenhydramine (Benadryl 25-50 mg every 6 hours) or Meclizine (Dramamine or Bonine 25 mg every 6hours) are all effective at controlling nausea and vomiting. They will however, make you sleepy. Youshould not take these unless you are prepared to be home and be able to sleep. 8. Caution. The traditional remedy of [facility] (sold under the brand name of [place] Pedro) may have high levels of lead and/or arsenic and should be avoided. It is also known as [place] Chalk, Calabar Stone, Mabele, Argile or [place]ie. If you have tried these remedies and continue to have any of the following symptoms, call your clinic or the [facility] phone service if you are: ?? Unable to eat, or you are vomiting every day ?? Urinating less than usual or have dark yellow urine (bright yellow urine may simply be discoloration from your vitamins) ?? Feeling dizzy when you stand up ?? Losing weight documented in this encounter Progress Notes Aries Titus RN - 03/10/2022 1:00 PM CDT Addended by: ARIES TITUS on: 04/02/2022 02:29 PM Modules accepted: Orders Jacinda Knight APRN, CNP - 03/10/2022 1:00 PM CDT [facility] CC: Initial Visit Yancy Dixon is a 27 y.o. is being seen today with her , Humberto, for her firstobstetrical visit. She is established with the OBGYN department. Subjective: Current symptoms: - Mild nausea, usually worst around midway. Has used OTC brigitte hard candies. - Fatigue Today's Clinical Considerations: - Short IPI (PLTCS on 04/22/21 at 41w1d for arrest of descent,= and Cat 2 FHR following IOL for late term gestation) - PUPPS in prior - Prior delivery - Class I obesity Menstrual History and Dating: Dating Summary Working BRIANNE: 10/08/22 set by Jacinda Knight APRN, CNP on 03/10/22 based on Last Menstrual Period on 01/01/22 Based On BRIANNE GA Diff GA User Date Last Menstrual Period on 01/01/22 (Exact Date) 10/08/22 Working Jacinda Knight APRN, CNP 03/10/22 Ultrasound on 03/10/22 10/08/22 Same 9w5d Jacinda Knight APRN, CNP 03/10/22 LMP: 01/01/22 Menses are regular, every 28 days. She was not using contraception. She was not . Positive home UPT on: 02/01/22 Dating ultrasound on 03/10/2022 showed GA of 9w5d. Discrepancy between LMP and radiology datin days. dating is based on LMP, and the patient is agreeable to this BRIANNE: 10/08/2022 [place] Risk Assessment : Last pap: 05/2021 NILM Hx of abnormal pap: yes, ASCUS in 2012 Hx of varicella: unsure, has had one dose of varicella vaccine Recent or planned international travel for patient or partner: no Cat(s) at home: no Hx of HSV patient or partner: no Personal or family history of pre-eclampsia: two maternal cousins History of COVID: yes, during first COVID vaccine: 2nd dose 11/26/2021 Viral illness since LMP: no Plans to use WIC: no Regular dental exams: yes Brushing: yes Flossing: yes OB History Para Term AB Living 2 1 1 0 0 1 SAB IAB Ectopic Multiple Live Births 0 0 0 0 1 # Outcome Date GA Lbr Sherwin/2nd Weight Sex Delivery Anes PTL Lv 2 Current 1 Term 04/22/21 41w1d 03:50 / 04:28 8 lb 1.1 oz (3.66 kg) F CS-LTranv EPI, Spinal N URIEL Name: TIMOTHY DIXON Apgar1: 9 Apgar5: 9 History of GHTN or Pre-E (with or without severe features): no History of shoulder dystocia: no History of GDM: no History of PPH: no Social History: Social History Socioeconomic History ??? Marital status: Spouse name: Sergio Paul ??? Number of children: 1 ??? Years of education: Not on file ??? Highest education level: Not on file Occupational History ??? 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 Occupation: [employer] Tobacco Use ??? Smoking status: Never Smoker ??? Smokeless tobacco: Never Used Vaping Use ??? Vaping Use: Never used Substance and Sexual Activity ??? Alcohol use: Not Currently ??? Drug use: Never ??? Sexual activity: Yes Partners: Male control/protection: None Other Topics Concern ??? Bike Helmet Yes ??? City [place] Yes ??? Exercise Yes ??? Guns in home Yes ??? Seat Belt Yes ??? Special Diet No ??? Weight Concern No Social History Narrative ??? Not on file Social Determinants of Health Financial Resource Strain: Not on file Food Insecurity: Not on file Transportation Needs: Not on file Physical Activity: Not on file Intimate Partner Violence: Not on file Housing Stability: Not on file Partner involved: Yes, Humberto Currently living with Humberto and daughterKatelin Past Medical History: Past Medical History: Diagnosis Date ??? Pap smear abnormality of cervix 2013 2013 LSIL, 2017 ASCUS/HPV neg, 2018 neg/HPV neg ??? Vaginismus 11/21/2020 ??? Varicella Surgeries: Past Surgical History: Procedure Laterality Date ??? SECTION ??? WISDOM TEETH EXTRACTION Family/Genetic History: Family History Problem Relation Age of Onset ??? High Cholesterol Mother ??? Stroke Mother Heat Stroke ??? Cancer Father ??? Stroke Maternal Grandfather ??? Thyroid Disorder Paternal Grandmother ??? Diabetes Paternal Grandmother ??? Cancer Paternal Grandfather ??? Diabetes Paternal Grandfather Medications: PNV, vitamin C, vitamin D, and magnesium Allergies/medications/family/genetic history reviewed and updated as needed in [facility]. Objective: Estimated body mass index is 30.76 kg/m?? as calculated from the following: Height as of this encounter: 5' 2 (1.575 m). Weight as of this encounter: 168 lb 3.2 oz (76.3 kg). See flow sheet. General: The patient appears well, in NAD. Neck: supple, symmetrical, trachea midline, no adenopathy. Thyroid: not enlarged, symmetric, no tenderness/mass/nodules. Lungs: clear, good air entry, no wheezes, rhonchi or rales. Heart: No murmurs, regular rate and rhythm. Breast: normal without suspicious masses, skin or nipple changes or axillary nodes, no skin dimplingor peau d'orange Abdomen: soft without tenderness, guarding, rebound tenderness, mass or organomegaly. Back: Symmetric, normal curvature, no CVAT. Pelvic: Declines. Lower extremities: No edema Skin: No rash or lesions. Psychiatric: Alert & oriented with normal affect and insight, does not appear depressed or anxious. Assessment: 27 y.o. at 9w5d based on LMP c/w 9w5d US who presents today for her initial visit. Patient Active Problem List Diagnosis ??? Supervision of high risk in first trimester ??? Short interval between pregnancies affecting in first trimester, antepartum ??? History of delivery, currently Plan: During this visit, I completed the following health counseling with patient: Genetic screening options o For all women- first Trimester Screening, NIPS, and Quad Marker Screening or AFP, 12-14 week anatomy ultrasound o For women 38 and older- NIPT and diagnostic options o CF screening discussed o SMA screening discussed o Check with insurance for coverage Supplements recommended daily Vitamin, Vitamin D, and [place]-3 Avoid use of alcoholic beverages, smoking and recreational drugs. Diet and Nutrition ?? Healthy, well-balanced nutrition ?? Importance of adequate calcium ?? Listeriosis prevention- food safety information ?? Fish brochure ?? Adequate hydration Weight gain recommendations during o Pre- BMI is above 30 so recommended weight gain is 11-20 # Benefits of exercise during and encouraged regular physical activity Toxoplasmosis prevention o Partner to change litter box during if cat(s) at home. COVID Counseling o COVID virus information and precautions discussion. Follow CDC for latest recommendations. o COVID vaccine recommended during for those not already vaccinated. care o Schedule of visits reviewed. Some visits may be conducted via phone/video during covid-19pandemic. o MD call group discussed. o Nurse line for concerns between appointments ??? Labs: routine initial labs; see orders for additional labs ??? Ultrasound: early OB ultrasound for viability and to confirm dating reviewed. ? ? MFM & genetic screening/testing: declines ??? Referral to [facility]: no ??? Low dose aspirin for the prevention of preeclampsia: no ??? COVID vaccine: yes Problems: Short IPI - PLTCS on 04/22/21 at 41w1d for arrest of descent and Cat 2 FHR following IOL for late term gestation PUPPS in prior - Discussed that this is more common in first but could recur Prior delivery - Arrest of descent - MFMU 46.2% Class I obesity - TWG 11-20 lbs - Level 2 US at 20-22 weeks tachycardia - FHR 184 on viability scan today - If elevated during NOB2, consider repeat US Return in 4 weeks for NOB2 with MD, sooner as needed Jacinda Knight APRN, CNP Billing based on: Time Total time for the visit was 62 minutes including, but not limited to, wqr-wrej-be-face time spent reviewing records, counseling, and coordination of care. Sophia Laureano CMA - 03/10/2022 1:00 PM CDT PUQE= 5 documented in this encounter Plan of Treatment Upcoming Encounters Date Type Specialty Care Team Description 12/02/2022 Appointment Obstetrics [place] [id number] [phone] (Wo rk) documented as of this encounter Results M US Level 2 (05/23/2022 8:44 AM CDT) P athologist Signature Cervical Length 3.52 cm EXTERNAL [...] 21. She was comfortable with the current nd sk assessment and did not desire maternal serum screening. Narrative 05/23/2022 9:01 AM CDT ?? [facility] [address] [facility], [address] [place] [address] Dept Dept Patient Name: Yancy Dixon ??Refe rred By: Attending: Jacinda Knight SKIN DIVING TEACHER, INTERACTIVE MULTIMEDIA DESIGNER Erica Moraes MD Patient ??Bag Filler Machine Operator: Destiny CASTANO, Age: 2 1995, 27 y.o. [...] View appears normal Orbits appears normal ??Cardiac [place] joana ears normal Lenses appears normal ??Cardiac [...] a ppears normal Pleural Effusion absent ??Short [place] of Ventricles appears normal Extremities ??Short [place] of Great Vessel s appears normal Right [...] seen Left [employer] Nor mal Impression Jacinda Olivera Gave SKIN DIVING TEACHER, INTERACTIVE MULTIMEDIA DESIGNER RAD RAMESH US (ABNORMAL) V Zoster Immune Status, IgG (03/10/2022 1:51 PM CDT) athologist Signature Varicella 87.7 IV 03/11/2022 [facility] Zoster Units 11:34 AM CDT LABORATORY Comment: The magnitude of the measured r esult, above the cutoff, is not indicative of the amount of antibody present. Varicella Zoster Not Immune (A) Immune 03/11/2022 11:34 A M [facility] Intepretation CDT LABORATORY Specimen Anatomical Collection Method / Collection Time Recei clint Time (Source) Location / Volume Laterality Blood Venipuncture / 03/10/2022 1:51 03/10/2022 1:51 Unknown PM CDT PM CDT Jacinda Knight APRN, INTERACTIVE MULTIMEDIA DESIGNER LAB_1 Performing Organization Address City/State/ZIP Code Phon e Number [facility] [address] [place] [address] Lead, Venous (03/10/2022 1:51 PM CDT) athologist [...] and its performa nce characteristics determined by [facility]. It has not been cleared or approved [...] lead ? toxicity are present. Performed By: [facility] [address] [place] [id number] Drilling Inspector: Susan Cope MD Specimen Anatomical Collection Method / Collection Time Recei clint Time (Source) Location / Volume Laterality Blood Venipuncture / 03/10/2022 1:51 03/10/2022 1:51 Unknown PM CDT PM CDT Jacinda Knight APRN, CNP LAB_1 Performing Organization Address City/[facility] Phon e Number [employer] [address] [place], [place] [phone] Treponema Screen (Syphilis) (03/10/2022 1:51 PM CDT) [facility] Method [place] Signature Treponema Screen 0.031 {s_co_ratio 03/10/2022 [facility] Result } 8:13 PM CDT LABORATORY Treponema Screen Non Non 03/10/2022 [facility] Interpretation Reactive Reactive 8:13 PM CDT LABORATORY Specimen Anatomical Collection Method / Collection Time Recei clint Time (Source) Location / Volume Laterality Blood Venipuncture / 03/10/2022 1:51 03/10/2022 1:51 Unknown PM CDT PM CDT Jacinda Knight APRN, CNP LAB_1 Performing Organization Address City/[facility]/ZIP Code Phon e Number [facility] [address] [email or web address] [address] Urine Culture (03/10/2022 1:51 PM CDT) [facility] Method Time Signature Urine Culture Urogenital 03/11/2022 [facility] 4:15 PM CDT HOSPITAL Specimen Anatomical Collection Method Collection Time Receive d Time (Source) Location / / Volume Laterality Urine URINE SPECIMEN Non-blood 03/10/2022 1:51 PM 022 1:51 COLLECTION, CLEAN Collection / CDT PM CDT CATCH / Unknown Unknown Jacinda Knight APRN, CONSTANCE LAB_1 Performing Organization Address City/[facility]/ZIP Code Phon e Number [address] [address] Rubella Immune Status, IgG (03/10/2022 1:51 PM CDT) athologist Signature Rubella Units 3.21 03/11/2022 [facility] 11:52 AM CDT LABORATORY Comment: The magnitude of the measured r esult, above the cutoff, is not indicative of the amount of antibody present. Rubella Intepretation Immune Immune 03/11/2022 11: 52 AM CDT [facility] Specimen Anatomical Collection Method / Collection Time Recei clint Time (Source) Location / Volume Laterality Blood Venipuncture / 03/10/2022 1:51 03/10/2022 1:51 Unknown PM CDT PM CDT Jacinda Knight APRN, CNP LAB_1 Performing Organization Address City/[facility]/ZIP Code Phon e Number [facility] [address] [place] [address] Rapid Drug Panel, Urine (with Confirmation) (03/10/2022 1:51 PM CDT) [facility] Method Time Signature Amphetamines Not Not 03/10/2022 [facility] Screen Detected Detected 7:45 PM CDT LABORATORY Barbiturates Not Not 03/10/2022 [facility] Screen Detected Detected 7:45 PM CDT LABORATORY Benzodiazepines Not Not 03/10/2022 [facility] Screen Detected Detected 7:45 PM CDT LABORATORY Buprenorphine Not Not 03/10/2022 [facility] Screen Detected Detected 7:45 PM CDT LABORATORY Cocaine Metabolite Not Not 03/10/2022 [facility] Screen Detected Detected 7:45 PM CDT LABORATORY Methadone Screen Not Not 03/10/2022 [facility] Detected Detected 7:45 PM CDT LABORATORY Opiates Screen Not Not 03/10/2022 [facility] Detected Detected 7:45 PM CDT LABORATORY Oxycodone Screen Not Not 03/10/2022 [facility] Detected Detected 7:45 PM CDT LABORATORY Phencyclidine Not Not 03/10/2022 [facility] (PCP) Screen Detected Detected 7:45 PM CDT LABORATORY THC (Marijuana) Not Not 03/10/2022 [facility] Metab Screen Detected Detected 7:45 PM CDT LABORATORY Creatinine, Urine, 41 >20 mg/dL 03/10/2022 [facility] Random 7:45 PM CDT LABORATORY Specimen Anatomical Collection Method Collection Time Receive d Time (Source) Location / / Volume Laterality Urine Non-blood 03/10/2022 1:51 PM 2 1:51 Collection / CDT PM CDT Unknown Narrative [facility] - 03/10/2022 7:45 P M CDT [...] forensic, legal, or employment use. Jacinda Knight APRN, CNP LAB_1 Performing Organization Address City/[facility] Phon e Number [facility] [address] [place] [address] HIV 1/2 Ag/Ab 4th Generation (03/10/2022 1:51 PM CDT) [facility] Method Time Signature HIV 1/2 Negative Negative 03/10/2022 [facility] Antigen/Antib (Non (Non 8:07 PM CDT LABORATORY cricket (4th Reactive) Reactive) generation) Comment: HIV-1 p24 Antigen and HIV-1/HIV -2 Antibody not detected Specimen Anatomical Collection Method / Collection Time Recei clint Time (Source) Location / Volume Laterality Blood Venipuncture / 03/10/2022 1:51 03/10/2022 1:51 Unknown PM CDT PM CDT Jacinda Knight APRN, CONSTANCE LAB_1 Performing Organization Address [facility] Phon e Number [facility] [address] [place] [address] Hgb A1C (03/10/2022 1:51 PM CDT) [facility] Hemoglobin A1C 5.2 <=5.6 % 03/11/2022 [facility] 10:14 AM CDT CENTRAL LAB Specimen Anatomical Collection Method / Collection Time Recei clint Time (Source) Location / Volume Laterality Blood Venipuncture / 03/10/2022 1:51 03/10/2022 1:51 Unknown PM CDT PM CDT Jacinda Knight APRN, CNP LAB_1 Performing Organization Address City/[facility] Code Phon e Number [facility] CENTRAL LAB [address] [address] Hepatitis C Antibody, with Reflex (03/10/2022 1:51 PM CDT) [facility] Hepatitis C Negative Negative 03/10/2022 [facility] Antibody (Non (Non 8:07 PM CDT LABORATORY Reactive) Reactive) Comment: Antibodies to HCV not detected. Does not exclude the possiblity of exposure to HCV. Specimen Anatomical Collection Method / Collection Time Recei clint Time (Source) Location / Volume Laterality Blood Venipuncture / 03/10/2022 1:51 03/10/2022 1:51 Unknown PM CDT PM CDT Jacinda Knight APRN, CNP LAB_1 Performing Organization Address [facility] Phon e Number [facility] [address] [place] [address] Hepatitis B Surface Antigen (03/10/2022 1:51 PM CDT) [facility] Hepatitis B Negative Negative 03/10/2022 [facility] Surface (Non (Non 7:51 PM CDT LABORATORY Antigen Reactive) Reactive) Specimen Anatomical Collection Method / Collection Time Recei clint Time (Source) Location / Volume Laterality Blood Venipuncture / 03/10/2022 1:51 03/10/2022 1:51 Unknown PM CDT PM CDT Jacinda Knight APRN, CNP LAB_1 Performing Organization Address City/[facility] Phon e Number [facility] [address] [place] [address] (ABNORMAL) Complete Blood Count-No Diff (03/10/2022 1:51 PM CDT) Patholo gist Method Time Signature WBC 11.0 (H) 3.5 - 10.5 03/10/2022 [facility] x10(9)/L 7:09 PM CDT LABORATORY RBC 4.52 3.90 - 03/10/2022 [facility] 5.03 7:09 PM CDT LABORATORY x10(12)/L Hemoglobin 14.0 12.0 - 03/10/2022 [facility] 15.5 g/dL 7:09 PM CDT LABORATORY HCT 41.6 34.9 - 03/10/2022 [facility] 44.5 % 7:09 PM CDT LABORATORY MCV 92.0 80.0 - 03/10/2022 [facility] 100.0 fL 7:09 PM CDT LABORATORY MCH 31.0 27.6 - 03/10/2022 [facility] 33.3 pg 7:09 PM CDT LABORATORY MCHC 33.7 31.5 - 03/10/2022 [facility] 35.2 g/dL 7:09 PM CDT LABORATORY RDW 13.1 11.9 - 03/10/2022 [facility] 15.5 % 7:09 PM CDT LABORATORY Platelets 312 150 - 450 03/10/2022 [facility] x10(9)/L 7:09 PM CDT LABORATORY Automated NRBC 0 <=0 /100 03/10/2022 [facility] WBC 7:09 PM CDT LABORATORY Specimen Anatomical Collection Method / Collection Time Recei clint Time (Source) Location / Volume Laterality Blood Venipuncture / 03/10/2022 1:51 03/10/2022 6:25 Unknown PM CDT PM CDT Jacinda Knight APRN, INTERACTIVE MULTIMEDIA DESIGNER LAB_1 Performing Organization Address City/State/ZIP Code Phon e Number [facility] [address] [place] [address] Blood Type (03/10/2022 1:51 PM CDT) P athologist Signature ABO O 03/10/2022 [facility] 8:40 PM CDT BLOOD BANK RH Positive 03/10/2022 [facility] 8:40 PM CDT BLOOD BANK Specimen Anatomical Collection Method / Collection Time Recei clint Time (Source) Location / Volume Laterality Blood Venipuncture / 03/10/2022 1:51 03/10/2022 1:51 Unknown PM CDT PM CDT Jacinda Knight APRN, CNP LAB_1 Performing Organization Address [facility] Phon e Number [facility] [address] [place] [address] Antibody Screen (03/10/2022 1:51 PM CDT) [facility] Method Time Signature Antibody Screen Positive 03/10/2022 [facility] Interpretation 8:41 PM CDT BLOOD BANK Specimen Anatomical Collection Method / Collection Time Recei clint Time (Source) Location / Volume Laterality Blood Venipuncture / 03/10/2022 1:51 03/10/2022 1:51 Unknown PM CDT PM CDT Jacinda Knight APRN, CNP LAB_1 Performing Organization Address [facility] Phon e Number [facility] [address] [place] [address] documented in this encounter Visit Diagnoses Diagnosis Supervision of high risk in rst trimester - Primary Unspecified high-risk Short interval between pregnancies affec ting in first trimester, antepartum History of delivery, currently Previous section complicating p regnancy Previous delivery, unspecified as to episode of care or not applicable Obesity in Obesity complicating , childbir th, or the puerperium, unspecified as to episode of care or not applicable Previous section complicating p regnancy Previous delivery, unspecified as to episode of care or not applicable Obesity in Obesity complicating , childbir th, or the puerperium, unspecified as to episode of care or not applicable documented in this encounter Care Teams Manager Part Relationship Specialty Start Date End Date Unassigned, Provider PCP - General 08/26/00 [address] [place] [address] documented as of this encounter
--- OUTSIDE RECORDS SUMMARY | 2022-10-10 23:55 | XMS_ITS | Encounter Summary ---
:1995 Author Organization [employer] Address [address] [place] [address] Care Team Providers Name Role Phone Unassigned, Provider Primary Care Provider Unavailable Encounter Details Date Type Department Care Team Description 10/25/2021 Immunization [place] [address] Family Need for prophylactic Medicine vaccination and [address] [place] [address] influenza (Primary Dx) [phone] Social History Tobacco Use Types Packs/Day Years [...] Obstetrics & Gynecology [place], [place] [address] [address] (Wo rk) documented as of this encounter Visit Diagnoses Diagnosis Need for prophylactic vaccination and in oculation against influenza - Primary documented in this encounter Care Teams Software Engineer Mobile Relationship Specialty Start Date End Date Unassigned, Provider PCP - General 08/26/[address] [place] [address] documented as of this encounter
--- OUTSIDE RECORDS SUMMARY | 2022-10-10 23:55 | XMS_ITS | Encounter Summary ---
:1995 Author Organization [employer] Address [address] [place] [address] Care Team Providers Name Role Phone Unassigned, Provider Primary Care Provider Unavailable Reason for Visit Reason Comments Routine Visit Encounter Details Date Type Department Care Team Description 05/12/2022 Routine [facility] Jacinda Knight, Routine Services-INSTRUMENT REPAIR SUPERVISOR CAMERA PROTOTYPING ENGINEER, AUTOMOBILE MECHANIC MOTOR Visit [address], [address] [place] [address] [phone] Social History Tobacco Use Types Packs/Day Years Used Date Smoking Tobacco: Never Smokeless Tobacco: Never Alcohol Use Standard Drinks/Week Comments Not Currently 0 (1 standard drink = 0.6 oz pure alcoho l) Sex Assigned at Date Recorded Not on file documented as of this encounter Last Filed Vital Signs Vital Sign Reading Time Taken Comments Blood Pressure 112/61 05/12/2022 12:58 PM CDT Pulse 79 05/12/2022 12:58 PM CDT Temperature - - Respiratory Rate - - Oxygen Saturation - - Inhaled Oxygen Concentration - - Weight 76.9 kg (169 lb 9.6 oz) 05/12/2022 12:58 PM CDT Height - - Body Mass Index 31.02 03/10/2022 12:58 PM CDT documented in this encounter Progress Notes Jacinda Knight, CAMERA PROTOTYPING ENGINEER, AUTOMOBILE MECHANIC MOTOR - 05/12/2022 1:00 PM CDT [facility] CC: Yancy is a 27 y.o. at 18w5d here for a routine visit. S: She is feeling well today. Feeling movement, just some flutters. Denies leaking, bleeding, regular painful contractions. complications: - Short IPI (PLTCS 04/22/2021) - H/o prior C/S for Arrest of Descent - H/o PUPPS - Class 1 obesity - Varicella NI O: Gen: alert, oriented, NAD See OB flowsheet. TWG = 4 lb 9.6 oz (2.087 kg) A/P: 27 y.o. at 18w5d based on LMP c/w 9w5d US presenting for routine care. Patient Active Problem List Diagnosis ??? Supervision of high risk in first trimester ??? Short interval between pregnancies affecting in first trimester, antepartum ??? History of delivery, currently Care: -OB labs reviewed: O positive, Rubella immune, HIV neg, Heb B nonreactive, Heb B immune, RPR negative. -Genetics: Declines -Anatomy ultrasound: Level 2 US scheduled 05/23 -Rh positive, Rhogam not indicated -GCT at 26-28 weeks along with CBC, RPR - S/p flu, s/p COVID x2, booster hasn't received. Recommended and reviewed safety. - GBS at 36 weeks - Continue PNV ?? H/o PLTCS for AoDescent and non-reassurig status: - Considering RCS vs TOLAC RTC in 4 weeks as scheduled or sooner PRN. Jacinda Knight APRN, CNP Dictation Disclaimer: Some notes are completed with voice-recognition dictation software. Typographical errors may result . Please contact me via [employer] staff message if you note any errors requiring clarification. documented in this encounter Plan of Treatment Upcoming Encounters Date Type Specialty Care Team Description 12/02/2022 Appointment Obstetrics & Gynecology [place], [place] [address] [address] (Wo rk) documented as of this encounter Visit Diagnoses Diagnosis Supervision of high risk in fi rst trimester - Primary Unspecified high-risk documented in this encounter Care Teams Sprinkler Installer Relationship Specialty Start Date End Date Unassigned, Provider PCP - General 08/26/00 [address] [place] [address] documented as of this encounter
--- OUTSIDE RECORDS SUMMARY | 2022-10-10 23:55 | XMS_ITS | Encounter Summary ---
:1995 Author Organization [employer] Address [address] [place] [address] Care Team Providers Name Role Phone Unassigned, Provider Primary Care Provider Unavailable Reason for Visit Procedure/Equipment (Routine) - Incomplete Specialty Diagnoses / Procedures Referred By Contact Refer red To Contact Diagnoses Absence of menstruation Jacinda Knight, TELEPHONE SOLICITOR SUPERVISOR, Procedures US OB < 14 Weeks Single US OB <14 Weeks W EV Single COLLECTION SPECIALIST [address] [address] Referral ID Status Reason Start Date Expiration Date Visits V isits Requested Authorized [id number] Incomplete 02/05/2022 05/07/2023 1 1 Encounter Details Date Type Department Care Team Description 03/10/2022 [place] [place] Jacinda Kay Absence of Procedure [place] [address] J, TELEPHONE SOLICITOR SUPERVISOR, COLLECTION SPECIALIST menstruation Ultrasound [address] Leila Brandt [address] [phone] Social History Tobacco Use Types Packs/Day Years [...] Obstetrics & Gynecology [place], [place] [address] [address] [address] (Wo rk) documented as of this encounter Procedures Procedure Name Priority Date/Time Associated Diagnosis Comme nts US OB < 14 WEEKS Routine 03/10/2022 11:58 Absence of Results for this SINGLE AM CDT menstruation procedure are i n the results section. documented in this encounter Results US OB < 14 Weeks Single (03/10/2022 11:58 AM CDT) Anatomical Region Laterality Modality Pelvis Ultrasound Specimen (Source) Anatomical Collection Method Collection Time Re ceived Time Location / / Volume Laterality 03/10/2022 11:38 AM CDT Impressions 03/10/2022 1:08 PM CDT COMPARISON: None. TECHNIQUE: ??Transabdominal imaging was performed. ?? FINDINGS: ?? Gestational sac: Unremarkable. [place]-rump length measures 2.9 cm, corre sponding to 9w5d gestational age. ?? BRIANNE . ?? Embryonic/ cardiac activity is iden tified with heart rate 186 bpm. This is slightly higher than the typical upper limit of 170 bpm for a gestational age between 9 and 10 weeks. Right Ovary: Measures 3.7 x 2.2 x 2.5 cm and Appears unremarkable. Left Ovary: Measures 3.5 x 2.0 x 3.0 cm and Appears unremarkable. ?? No suspicious adnexal masses. Free Fluid: No significant free fluid. GA by LMP: ??09w5d GA by Prior US: ??None GA by today's US: ??9w5d BRIANNE by today's US: IMPRESSION: 1. Early single living intrauterine preg gonzalo with sonographic gestational age of 9 weeks 5 days, matching the GA by LMP. 2. Mild tachycardia. Consider foll ow-up ultrasound early in the second trimester to reassess the heart rate. Procedure Note Aubrie Bar MD - 03/10/2022Formattin g of this note might be different from the original. IMPRESSION COMPARISON: None. TECHNIQUE: Transabdominal imaging was pe rformed. FINDINGS: Gestational sac: Unremarkable. [place]-rump length measures 2.9 cm, corre sponding to 9w5d gestational age. BRIANNE . Embryonic/ cardiac activity is iden tified with heart rate 186 bpm. This is slightly higher than the typical upper limit of 170 bpm for a gestational age between 9 and 10 weeks. Right Ovary: Measures 3.7 x 2.2 x 2.5 cm and Appears unremarkable. Left Ovary: Measures 3.5 x 2.0 x 3.0 cm and Appears unremarkable. No suspicious adnexal masses. Free Fluid: No significant free fluid. GA by LMP: 09w5d GA by Prior US: None GA by today's US: 9w5d BRIANNE by today's US: IMPRESSION: 1. Early single living intrauterine preg gonzalo with sonographic gestational age of 9 weeks 5 days, matching the GA by LMP. 2. Mild tachycardia. Consider foll ow-up ultrasound early in the second trimester to reassess the heart rate. Jacinda Knight TELEPHONE SOLICITOR SUPERVISOR, COLLECTION SPECIALIST RAD US documented in this encounter Visit Diagnoses Diagnosis Absence of menstruation documented in this encounter Care Teams Director Of Residence Life Relationship Specialty Start Date End Date Unassigned, Provider PCP - General 08/26/[address] [place] [address] documented as of this encounter
--- OUTSIDE RECORDS SUMMARY | 2022-10-10 23:55 | XMS_ITS | Encounter Summary ---
:1995 Author Organization [employer] Address [address] [place] [address] Care Team Providers Name Role Phone Unassigned, Provider Primary Care Provider Unavailable Reason for Visit Reason Comments Routine Visit Encounter Details Date Type Department Care Team Description 06/06/2022 Routine [facility] Adriana Neely Services-BULK INTAKE WORKER MD Marisela Visit [address] [place] [address] [place] [address], [address] [place] [address] [phone] Social History Tobacco Use Types Packs/Day Years Used Date Smoking Tobacco: Never Smokeless Tobacco: Never Alcohol Use Standard Drinks/Week Comments Not Currently 0 (1 standard drink = 0.6 oz pure alcoho l) Sex Assigned at Date Recorded Not on file documented as of this encounter Last Filed Vital Signs Vital Sign Reading Time Taken Comments Blood Pressure 109/54 06/06/2022 9:47 AM CDT Pulse 80 06/06/2022 9:47 AM CDT Temperature - - Respiratory Rate - - Oxygen Saturation - - Inhaled Oxygen Concentration - - Weight 78.9 kg (174 lb) 06/06/2022 9:47 AM CDT Height - - Body Mass Index 31.83 03/10/2022 12:58 PM CDT documented in this encounter Patient Instructions AttachmentsThe following attachments cannot be sent through Care Everywhere. : Gestational Diabetes Screening: General Info (Sao Tomean)Round Ligament Pain (Sao Tomean): : Deciding About ([place]ao Tomean)documented in this encounter Progress Notes Adriana Neely MD - 06/06/2022 9:45 AM CDT [facility] CC: Follow-up care S: Yancy Watts is feeling well today. - Is there anything she can do to increase success rate of ? - Recently lost her voice She denies loss of fluid, vaginal bleeding. Good FM. She has been having no regular pelvic pain or cramping. Denies headache, chest pain, shortness of breath. No hematuria, dysuria or other. No constipation or diarrhea. complications: - Short IPI (PLTCS 04/22/2021) - H/o prior C/S for Arrest or Descent - H/o PUPPS - Class 1 obesity - Varicella NI O: Vitals: 06/06/22 0947 BP: 109/54 Pulse: 80 Constitutional: Well appearing, non-toxic female Psych: A&O x3 See OB flowsheet. A/P: 27 y.o. at 22w2d by LMP c/w 9w5d US presenting for follow-up care. Care: -OB labs reviewed: O positive, Rubella immune, HIV neg, Heb B nonreactive, Heb B immune, RPR negative. -Genetics: Declines -Anatomy ultrasound: Level 2 unremarkable, posterior placenta -Rh positive, Rhogam not indicated -GCT at 26-28 weeks along with CBC, RPR - ordered - S/p flu, s/p COVID x2, booster did not receive - GBS at 36 weeks - Feed: Breast; will need pump Rx - Continue PNV H/o PLTCS for AoDescent and non-reassurig status: - S/p counseling re: TOLAC vs. Repeat C/S in the setting of desiring 3-4 children. - Desire ; will need to sign consents RTC in 4 weeks, scheduled. Precautions reviewed. Adriana Neely MD P: [phone] 06/06/2022 9:51 AM Dictation Disclaimer: Some notes are completed with voice-recognition dictation software. Typographical errors may result . Please contact me via [employer] staff message if you note any errors requiring clarification. documented in this encounter Plan of Treatment Upcoming Encounters Date Type Specialty Care Team Description 12/02/2022 Appointment Obstetrics & Gynecology [place], [place] [address] [facility] [address] [place], [place] [address] (Wo rk) documented as of this encounter Results RPR with Reflex to Titer (07/10/2022 11:09 AM CDT) [facility] Method Time Signature RAPID PLASMA Non Reactive Non 07/12/2022 [facility] REAGIN (RPR) Reactive 12:18 AM LABORATORIES CDT Comment: Rapid Plasma Reagin screening test is No n-Reactive. No further reflex testing is required. Performed By: [facility] [address] [place] [address] Manufacturing Engineer Chief: Tong Peralta MD, PhD Specimen Anatomical Collection Method / Collection Time Recei clint Time (Source) Location / Volume Laterality Blood Venipuncture / 07/10/2022 11:09 2 Unknown AM CDT 11:09 AM CDT Adriana Neely MD LAB_1 Performing Organization Address City/[facility]/ZIP [facility] Phon e Number [facility] [address] [place], [place] [phone] Glucose - 1 Hr. P.C. Preg (07/10/2022 11:09 AM CDT) athologist Signature Glucose, 1 101 70 - 135 07/10/2022 [facility] OB mg/dL 5:03 PM CDT LABORATORY Challenge Specimen Anatomical Collection Method / Collection Time Recei clint Time (Source) Location / Volume Laterality Blood Venipuncture / 07/10/2022 11:09 2 Unknown AM CDT 11:09 AM CDT Adriana Neely MD LAB_1 Performing Organization Address City/State/ZIP Code Phon e Number [facility] [address] [place] [address] (ABNORMAL) Complete Blood Count-No Diff (07/10/2022 11:09 AM CDT) [employer] gist Method Time Signature WBC 12.6 (H) 3.5 - 10.5 07/10/2022 [facility] x10(9)/L 1:58 PM CDT LABORATORY RBC 3.99 3.90 - 07/10/2022 [facility] 5.03 1:58 PM CDT LABORATORY x10(12)/L Hemoglobin 13.1 12.0 - 07/10/2022 [facility] 15.5 g/dL 1:58 PM CDT LABORATORY HCT 37.2 34.9 - 07/10/2022 [facility] 44.5 % 1:58 PM CDT LABORATORY MCV 93.2 80.0 - 07/10/2022 [facility] 100.0 fL 1:58 PM CDT LABORATORY MCH 32.8 27.6 - 07/10/2022 [facility] 33.3 pg 1:58 PM CDT LABORATORY MCHC 35.2 31.5 - 07/10/2022 [facility] 35.2 g/dL 1:58 PM CDT LABORATORY RDW 13.9 11.9 - 07/10/2022 [facility] 15.5 % 1:58 PM CDT LABORATORY Platelets 227 150 - 450 07/10/2022 [facility] x10(9)/L 1:58 PM CDT LABORATORY Automated NRBC 0 <=0 /100 07/10/2022 [facility] WBC 1:58 PM CDT LABORATORY Specimen Anatomical Collection Method / Collection Time Recei clint Time (Source) Location / Volume Laterality Blood Venipuncture / 07/10/2022 11:09 2 Unknown AM CDT 11:09 AM CDT Adriana Neely MD LAB_1 Performing Organization Address City/State/ZIP Code Phon e Number [facility] [address] [place] [address] documented in this encounter Visit Diagnoses Diagnosis Supervision of high risk in rst trimester - Primary Unspecified high-risk Short interval between pregnancies affec ting in first trimester, antepartum History of delivery, currently Obesity in Obesity complicating , childbir th, or the puerperium, unspecified as to episode of care or not applicable PUPP (pruritic urticarial papules and pl aques of ) Other specified complication of pregnanc y, unspecified as to episode of care documented in this encounter Care Teams Senior Environmental Consultant Relationship Specialty Start Date End Date Unassigned, Provider PCP - General 08/26/00 [address] [place] [address] documented as of this encounter
--- OUTSIDE RECORDS SUMMARY | 2022-10-10 23:56 | XMS_ITS | Encounter Summary ---
:1995 Author Organization [employer] Address [address] [place] [address] Care Team Providers Name Role Phone Unassigned, Provider Primary Care Provider Unavailable Reason for Visit Reason Comments Routine Visit 34w 4d Encounter Details Date Type Department Care Team Description 03/07/2021 Routine [facility] Adriana Neely Services-BARREL CHARRER HELPER MD Marisela Visit (34w 4d) [address], [address] [address] Social History Tobacco Use Types Packs/Day Years Used Date Smoking Tobacco: Never Smokeless Tobacco: Never Alcohol Use Standard Drinks/Week Comments Not Currently 0 (1 standard drink = 0.6 oz pure alcoho l) Sex Assigned at Date Recorded Not on file documented as of this encounter Last Filed Vital Signs Vital Sign Reading Time Taken Comments Blood Pressure 125/69 03/07/2021 10:56 AM CDT Pulse 101 03/07/2021 10:56 AM CDT Temperature - - Respiratory Rate - - Oxygen Saturation - - Inhaled Oxygen Concentration - - Weight 84.7 kg (186 lb 12.8 oz) 03/07/2021 10:56 AM CDT Height - - Body Mass Index 34.17 11/20/2020 8:10 AM [employer]ION PICTURE SET GRIP documented in this encounter Patient Instructions Patient InstructionsAdriana Neely MD - 03/07/2021 11:00 AM CDT Images from the original note were not included. Group B Strep During : Care Instructions Your Care Instructions Group B strep infection is caused by a type of bacteria. It's a different kind of bacteria than the kind that causes strep throat. You may have this kind of bacteria in your body. Sometimes it may cause an infection, but most of the time it doesn't make you sick or cause symptoms. But if you pass the bacteria to your baby during the , it can cause serious health problems for your baby. If you have this bacteria in your body, you will get antibiotics when you are in labor. Antibiotics help prevent problems for a baby. After , doctors will watch and may test your baby. If your baby tests positive for Group B strep, he or she will get antibiotics. If you plan to breastfeed your baby, don't worry. It will be safe to breastfeed. Follow-up care is a norman part of your treatment and safety. Be sure to make and go to all appointments, and call your doctor if you are having problems. It's also a good idea to know your test results and keep a list of the medicines you take. How can you care for yourself at home? ?? If your doctor has prescribed antibiotics, take them as directed. Do not stop taking them just because you feel better. You need to take the full course of antibiotics. ?? Tell your doctor if you are allergic to any antibiotic. ?? If your water breaks, go to the hospital right away. Your doctor will give you antibiotics to help protect your baby from infection. ?? Tell the doctors and nurses at the hospital that you tested positive for group B strep. When should you call for help? Call your doctor now or seek immediate medical care if: ? You have symptoms of a urinary tract infection. These may include: ? Pain or burning when you urinate. ? A frequent need to urinate without being able to pass much urine. ? Pain in the flank, which is just below the rib cage and above the waist on either side of the back. ? Blood in your urine. ? A fever. ? You think your water has broken. ? You have pain in your belly or pelvis. Watch closely for changes in your health, and be sure to contact your doctor if you have any problems. Where can you learn more? 1. Go to [email or web address]/healthlibrary. 2. Enter M001 in the search box. Current as of: August 30, 2020?Content Version: 12.8 ?? [employer]. Care instructions adapted under license by your healthcare professional. If you have questions abouta medical condition or this instruction, always ask your healthcare professional. [employer] disclaims any warranty or liability for your use of this information. documented in this encounter Progress Notes Adriana Neely MD - 03/07/2021 11:00 AM CDT [facility] ?? CC:??Follow-up care ?? S:??Yancy Watts??is feeling well today. ? Concerns today: - Rash between legs on inner thighs; started about 1 week ago. First symptoms were itching, and worsened since then. Has dermatitis which she has been seen for, but this is 10x as bad - this wakes her up in the middle of the night. States the Sarna cream usually works for 1 hours, then returns. Did use kenalog cream, but has since stopped. ?? No constipation, diarrhea. She denies loss of fluid or vaginal bleeding. Reports good movement. She has been having no regular contractions. Some Piatt-Bergeron. ?? complications: -??Late ZOE at 19 weeks - Vaginismus, saw pelvic floor PT - COVID 19 in 1st trimester ?? O:?? Vitals: 03/07/21 1056 BP: 125/69 Pulse: (!) 101 Constitutional: Well appearing, non-toxic female Psych: A&O x3 HEENT: Eyes are normal with clear sclerae. Ears are symmetric. Respiratory: Non-labored breathing with good inspiratory effort CV: Distal extremities are warm and well perfused Musculoskeletal: Normal gait Neuro: Moves all extremities equally Skin: The patient's inner thighs, she does have stretch lowe with erythema consistent with PUPPs. ?? See OB flowsheet ?? A/P:??25 y.o.?? at 34w4d ??by LMP c/w 11w1d US??presenting for follow-up care. ?? Care: -OB labs reviewed:??O??positive, Rubella immune, HIV neg, Heb B nonreactive, Heb B immune, RPR negative -Genetics:??Declined?? -Anatomy ultrasound:??L2 with normal anatomy, posterior placenta, Girl!?? - Rh positive, Rhogam not indicated - GCT 84, Hgb 12.3 - S/p flu, Tdap??02/07/21 - GBS at 36 weeks; next visit - Feed:??Breast with pumping, has breast pump - Continue PNV - Contraception: Condoms ?? COVID in early : - Growth US 02/21 EFW 2062g, 48%, MAURIEC 11 - Discussed data on Covid vaccine and safety in women that have already received it. Declines at this time. PUPPS: - Kenalog, 0.1% ointment sent for BID - encourage the patient to wear loose clothing at home, and during the day, to wear cotton leggings to prevent chafing. When the initial irritation is subtle, I did also recommend using an anti-chafingtopical barrier as well. Follow-up in clinic in??2 weeks, scheduled Adriana Neely MD P: [phone] 03/07/2021 11:08 AM Dictation Disclaimer: Some notes are completed with voice-recognition dictation software. Typographical errors may result . Please contact me via [employer] staff message if you note any errors requiring clarification. documented in this encounter Plan of Treatment Upcoming Encounters Date Type Specialty Care Team Description 12/02/2022 Appointment Obstetrics & [place] [address] [address] (Wo rk) documented as of this encounter Visit Diagnoses Diagnosis Encounter for supervision of normal firs t in second trimester - Primary Supervision of normal first Vaginismus PUPP (pruritic urticarial papules and pl aques of ) Other specified complication of pregnanc y, unspecified as to episode of care COVID-19 affecting in first tr imester documented in this encounter Care Teams Retail Service Lead Merchandiser Relationship Specialty Start Date End Date Unassigned, Provider PCP - General 08/26/[address] [place] [address] documented as of this encounter
--- OUTSIDE RECORDS SUMMARY | 2022-10-10 23:56 | XMS_ITS | Encounter Summary ---
:1995 Author Organization [employer] Address [address] [place] [address] Care Team Providers Name Role Phone Unassigned, Provider Primary Care Provider Unavailable Encounter Details Date Type Department Care Team Description 09/17/[address] [facility], [facility] Close exposure to COVID-19 v irus; [address] Cough; [place] [address] Sore throat [phone] Social History Tobacco Use Types Packs/Day Years Used Date Smoking Tobacco: Never Assessed Sex Assigned at Date Recorded Not on file documented as of this encounter Plan of Treatment Upcoming Encounters Date Type Specialty Care Team Description 12/02/2022 Appointment Obstetrics & Gynecology [place], [place] [address] [address] (Wo rk) documented as of this encounter Procedures Procedure Name Priority Date/Time Associated Comments Diagnosis 2019 NOVEL Routine 09/17/2020 2:42 PM Close exposure to Resu lts for this CORONAVIRUS CDT COVID-19 virus procedure are in Cough the results Sore throat section. documented in this encounter Results (ABNORMAL) 2019 Novel Coronavirus (COVID-19) (09/17/2020 2:42 PM CDT) [facility] Method Time Signature SARS Detected (A) Not Detected 09/20/2020 HELIX CORONAVIRUS 2 10:20 AM RNA IN CDT RESPIRATORY SPECIMEN BY CHAU W Comment: Results and Interpretation Positive: SARS-CoV-2 detected Testing identified the presence of SARS- CoV-2 (the virus that causes COVID-19) in the patient's sample. Methods and Limitations This test was developed for the detectio n of nucleic acids from the SARS-CoV-2 virus by RT-PCR in individuals who meet SARS-CoV-2 clinical and/or epidemiological criteria. This test has not been FDA cleared or ap proved. This test has been authorized by FDA und er an EUA for use by the authorized laboratory. This test is only authorized for the duration of time that the [place]er of the [facility] declares circumstances exist j ustifying the authorization of the emerg ency use of in vitro diagnostic tests for detection of SARS-CoV-2 virus and/or diagnosis of COVID-19 infection under section 564(b)(1) of the Act, 21 U.S.C. 360bb b-3(b)(1), unless the authorization is t erminated or revoked sooner. To learn more about this test, go to [email or web address] Performed by: PARUL Tijerina [id number], CLIA [id number], [address] [place] [address] Orthotic Fitter: Boo Gasca, Ph D, FAC, FFSC ([facility]) Specimen Anatomical Collection Method Collection Time Receive d Time (Source) Location / / Volume Laterality Swab (Source Non-blood 09/17/2020 2:42 PM 0 4:31 Required) Collection / CDT PM CDT Unknown Savannah Montalvo PA-C LAB_1 Performing Organization Address City/State/ZIP Code Phon e Number [place] [address] [place] [address] documented in this encounter Visit Diagnoses Diagnosis Close exposure to COVID-19 virus Cough Sore throat Acute pharyngitis documented in this encounter Additional Health Concerns Infection Onset Date Last Indicated Resolved Time R/O COVID19 09/17/2020 09/17/2020 09/20/2020 2:50 PM CDT documented as of this encounter Care Teams Anesthesia Attending Relationship Specialty Start Date End Date Unassigned, Provider PCP - General 08/26/[address] [place] [address] documented as of this encounter
--- OUTSIDE RECORDS SUMMARY | 2022-10-10 23:56 | XMS_ITS | Encounter Summary ---
:1995 Author Organization [employer] Address [address] [place] [address] Care Team Providers Name Role Phone Unassigned, Provider Primary Care Provider Unavailable Reason for Visit Procedure/Equipment (Routine) - Incomplete Specialty Diagnoses / Procedures Referred By Contact Refer red To Contact Diagnoses Encounter for supervision of normal first in second trimester Alexa Macario APRN, CNP Procedures US OB 20 Weeks Complete Single [address] [place] [address] Referral ID Status Reason Start Date Expiration Date Visits V isits Requested Authorized [id number] Incomplete 11/20/2020 02/19/2022 1 1 Encounter Details Date Type Department Care Team Description 11/26/2020 Ancillary [facility] Alexa Macario Encou nter for Procedure Services-[place] [address] normal [facility], [address] [place], [place] [address] trimester [id number] Social History Tobacco Use Types Packs/Day Years Used Date Smoking Tobacco: Never Smokeless Tobacco: Never Alcohol Use Standard Drinks/Week Comments Not Currently 0 (1 standard drink = 0.6 oz pure alcoho l) Sex Assigned at Date Recorded Not on file documented as of this encounter Progress Notes Alexa Macario, CONSTANCE AYERS - 11/26/2020 7:15 AM CST 20 week ultrasound size equals dates, anatomy normal except for questionable ventral septal defect. Placenta posterior, no previa. MAURICE normal. Cervical length 3.8 cm. Level 2 ultrasound order for cardiac evaluation. MS-WATCH CRYSTAL EDGE GRINDER K MACHINE OPERATOR Alexa Macario APRN, CNP - 11/26/2020 7:15 AM CST 20 week ultrasound size equal states, anatomy normal except for questionable ventricle septal defect. Placenta posterior, no previa. MAURICE normal. Cervical length 3.8 cm. Patient was notified cardiac anatomy findings and Level 2 ultrasound ordered, see telephone note. 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 trimester documented in this encounter Results US OB 20 Weeks Complete Single (11/26/2020 8:14 AM BLOCK MACHINE OPERATOR) Anatomical Region Laterality Modality Pelvis Ultrasound Study GA Study Date Study BRIANNE Working BRIANNE (Source) W eight (Method) 20w4d 04/11/2021 377 g (Hadlock 1984 (BPD, HC, AC, FL) )378 g (Had lock 1984 (AC, FL) )378 g (Hadlock 1984 (BPD, AC, FL) )375 g (Had lock 1984 (HC, AC, FL) )393 g (Had lock 1983 (AC) )374 g (Hadlock 1983 (HC, AC) )384 g (Laguna 1981 (BPD, AC) ) Result Name Value Comments FHR 148 bpm GA by US Calc 144 days 144 CI 74.06 % HC/AC 1.19 FL/AC 21.91 % FL/BPD 69.23 % BPD 4.94 cm 147 HC 18.55 cm 147 AC 15.61 cm 145 FL 3.42 cm 145 Specimen (Source) Anatomical Collection Method Collection Time Re ceived Time Location / / Volume Laterality 11/26/2020 7:12 AM BLOCK MACHINE OPERATOR Impressions 11/26/2020 8:20 AM BLOCK MACHINE OPERATOR COMPARISON: ??None. ?? TECHNIQUE: A level 1 ultrasound was perf ormed. Transabdominal imaging was performed. FINDINGS: ??Type of Gestation: ??Singlet on. Presentation: vertex Movement Present: ??Yes ?? Cardiac Rate: 148 bpm and is regular Amniotic Fluid Volume: ??Normal Placental Position: ??posterior. Normal. Cervical Length (cm): ??3.8 ??Within nor mal ANATOMIC SURVEY RESULTS: ??Questionable ventricle septal defect. The remainder of the anatomic survey is otherwise unremarkable. ?? The anatomic survey includes assessment of: Cranium, Lateral Ventricles, Cerebellum, Cisterna Magna, Nuchal Fold, Face: Orbits, Upper Lip, Profile, Spine: Long C,T,L,S, Transverse Sacrum, Heart: 4 Chamb er View, M-Mode, Right ventricular outfl ow tract, Left ventricular outflow tract, Abdomen: Cord Insertion, 3-Vessel Cord, Bladder, Stomach, Diaphragm, Kidneys, Extremities: presence of arms and legs. Measurements (Source Hadlock): BPD: ??4.9 cm = 21w0d HC: 18.6 cm = 20w6d AC: ??15.6 cm = 20w5d FL: ??3.4 cm = 20w5d Anatomic Ratios: ??Within normal limits. Estimated Weight: No estimate when less than 24 weeks. ?? Other Findings: None. GA by LMP: ??20w1d GA by Prior US: ??20w5d GA by today's US: ??20w4d BRIANNE by today's US: ??04/11/2021 IMPRESSION: 1. Single living intrauterine with vertex presentation. 2. Questionable ventricle septal defect. Level 2 ultrasound is recommended. Procedure Note Ryan Moura MD - 11/26/2020Formattin g of this note might be different from the original. IMPRESSION COMPARISON: None. TECHNIQUE: A level 1 ultrasound was perf ormed. Transabdominal imaging was performed. FINDINGS: Type of Gestation: Irvin. Presentation: vertex Movement Present: Yes Cardiac Rate: 148 bpm and is regular Amniotic Fluid Volume: Normal Placental Position: posterior. Normal. Cervical Length (cm): 3.8 Within normal ANATOMIC SURVEY RESULTS: Questionable ve ntricle septal defect. The remainder of the anatomic survey is otherwise unremarkable. The anatomic survey includes assessment of: Cranium, Lateral Ventricles, Cerebellum, Cisterna Magna, Nuchal Fold, Face: Orbits, Upper Lip, Profile, Spine: Long C,T,L,S, Transverse Sacrum, Heart: 4 Chamber View, M-Mode, Right ventricular outflow tract, Left ve ntricular outflow tract, Abdomen: Cord Insertion, 3-Vessel Cord, Bladder, Stomach, Diaphragm, Kidneys, Extremities: presence of arms and legs. Measurements (Source Hadlock): BPD: 4.9 cm = 21w0d HC: 18.6 cm = 20w6d AC: 15.6 cm = 20w5d FL: 3.4 cm = 20w5d Anatomic Ratios: Within normal limits. Estimated Weight: No estimate when less than 24 weeks. Other Findings: None. GA by LMP: 20w1d GA by Prior US: 20w5d GA by today's US: 20w4d BRIANNE by today's US: 04/11/2021 IMPRESSION: 1. Single living intrauterine with vertex presentation. 2. Questionable ventricle septal defect. Level 2 ultrasound is recommended. Alexa Macario APRN, WATCH CRYSTAL EDGE GRINDER RAD US documented in this encounter Visit Diagnoses Diagnosis Encounter for supervision of normal firs t in second trimester Supervision of normal first documented in this encounter Care Teams Cnc Milling Machinist Relationship Specialty Start Date End Date Unassigned, Provider PCP - General 08/26/[address] [place] [address] documented as of this encounter
--- OUTSIDE RECORDS SUMMARY | 2022-10-10 23:56 | XMS_ITS | Encounter Summary ---
:1995 Author Organization [employer] Address [address] [place] [address] Care Team Providers Name Role Phone Unassigned, Provider Primary Care Provider Unavailable Reason for Visit Reason Comments RESULTS, TEST hemoglobin, glucose Encounter Details Date Type Department Care Team Description 01/15/2021 Telephone [facility] Adriana Neely RESULTS, TEST Services-BALL ASSEMBLER MD Marisela (hemoglobin, glucose) [address] [facility], [address] [place] [address] [address] [id number] [phone] Social History Tobacco Use Types Packs/Day Years Used Date Smoking Tobacco: Never Smokeless Tobacco: Never Alcohol Use Standard Drinks/Week Comments Not Currently 0 (1 standard drink = 0.6 oz pure alcoho l) Sex Assigned at Date Recorded Not on file documented as of this encounter Nursing Notes Jayla Rodriguez LPN - 01/15/2021 10:18 AM CST Images from the original note were not included. Patient viewed glucose result via PushPage, hemoglobin result pending My Chart release 01/20/2021. Pt informed of these results. Next routine OB visit with Jessica 02/07/2021. Adriana Neely MD [facility] Please call the patient and let her know that she passed her diabetes screen. ??In addition, her hemoglobin is stable at 12.3. ??We will review these lab results in more detail at her next OB appointment. Please and thank you! FEEDER documented in this encounter Plan of Treatment Upcoming Encounters Date Type Specialty Care Team Description 12/02/2022 Appointment Obstetrics & [place] [address] [address] (Wo rk) documented as of this encounter Visit Diagnoses Not on filedocumented in this encounter Care Teams Freight Rate Clerk Relationship Specialty Start Date End Date Unassigned, Provider PCP - General 08/26/[address] [place] [address] documented as of this encounter
--- OUTSIDE RECORDS SUMMARY | 2022-10-10 23:56 | XMS_ITS | Encounter Summary ---
:1995 Author Organization [employer] Address [address] [place] [address] Care Team Providers Name Role Phone Unassigned, Provider Primary Care Provider Unavailable Reason for Visit Reason Comments COVID Test Results Encounter Details Date Type Department Care Team Description 09/20/2020 Telephone [facility] Savannah Montalvo, STEVE COVID Test Results Practice [id number] [place] [address] [facility] [place] [place] [address] [phone] Social History Tobacco Use Types Packs/Day Years Used Date Smoking Tobacco: Never Assessed Sex Assigned at Date Recorded Not on file documented as of this encounter Nursing Notes Renetta Armando, RN - 09/20/2020 4:07 PM CDT Patient was notified that COVID-19 testing was positive. Patient has symptoms. Date of onset of symptoms: 09/11/20 Current symptoms consist of: Fever greater than 100, Cough, Muscle aches and Fatigue Progression of symptoms: improved Patient was given and able to verbalize home isolation instructions for patients that have tested positive for COVID. ??? Remain in home isolation for: o Immunocompetent Patient: at least 10 days from the start of your symptoms AND you've not had a fever for 24 hours without fever reducing medicine AND all your symptoms have improved. o Immunocompromised Patient: at least 20 days from the start of your symptoms AND you've not had a fever for 24 hours without fever reducing medicine AND all your symptoms have improved. ??? Per CDC guidelines you are able to discontinue Home Isolation on 09/21/2020. ??? Until that date: do not leave your home, except to get medical care, stay connected with your doctor via video visits unless you have emergency warning signs or if you feel it's an emergency, avoidpublic areas and transportation. Separate yourself from others as much as possible by staying in a specific room away from people and pets in your home, use a separate bathroom if available, wear a cloth face covering if you need to be around others in your home. ??? Wash often with soap and water for at least 20 seconds, or use an alcohol- based hand director maternal child containing at least 60% alcohol. Avoid touching your face. ??? Your close contacts (within 48 hours prior to onset of your symptoms) should also isolate themselves and monitor for 14 days even if they don???t have symptoms. ??? Use a tissue when you cough or sneeze. Throw used tissues in a lined trash can. Immediately washyour hands. ??? You should not share dishes, drinking glasses, cups, eating utensils, towels, or bedding with other people in your home. After using these items, they should be washed thoroughly with soap and water. Clean all high touch surfaces in your home daily. ??? Avoid contact with pets or other animals while you are sick. When possible, have another member of your household care for your animals while you are sick. ??? It's important for you to watch for any worsening symptoms, especially if you are at a higher risk for getting very sick from COVID-19. Higher risk groups include people older than age 60 and people who have serious chronic medical conditions like heart disease, diabetes or lung disease. ??? Pay attention to the speed of worsening symptoms. If your symptoms are gradually worsening and you're concerned, try a video visit or call your clinic. Normally symptoms worsen a bit before gettingbetter. ??? Seek care at an emergency room if these symptom suddenly or quickly worsen: Sudden worsening shortness of breath, sudden worsening wheezing, difficulty swallowing, slurred speech, facial numbness, new confusion or inability to arouse, persistent pain or pressure in the chest, leg swelling. ??? Before returning to work, you must contact your employer for return to work instructions. ??? Recommended Centers of Disease Control (CDC), [facility] ([facility]), and [employer] [facility] websites for further information on Coronavirus. ??? Advised patient to review COVID-19 handout given to them at time of testing. ??? Advised patient that they will receive a follow up on their current symptoms via MyChart or phone. Does patient have any questions? No Risk Factors: None Is patient at high risk or follow up recommended with their clinician via Video/Phone Visit? No Does patient need documentation as verification of their results? No The following advice may help if you have a fever, sore throat, cough, or sinus infection/pain. Please note that because COVID-19 is a viral infection, an antibiotic won???t soothe or treat the virus. Getting plenty of rest and drinking water to stay hydrated is norman to feeling better. , For fever/sore throat/sinus congestion or pain for all ages over four months old: Use acetaminophen. Follow age and weight-appropriate dosing recommendations and the package instructions. Avoid stomach upset by taking with food or milk. , For adults only with sore throat: xpyt-ndb-gtefykr throat lozenges or anesthetic sprays can also help provide pain relief., For Adults only with a bothersome cough or congestion:A cough suppressant should only be used when you need a rest or break from your cough. Use an kdyd-nep-urpvwof cough medication that contains dextromethorphan (such as Delsym??) sparingly. and Take a cough expectorant that contains guaifenesin (such as Mucinex??) for three days. This will thin mucus in your chest to make it easier to cough up. Avoid multi-symptom versions, which often have extra letters in their name (such as Mucinex DM??). Drinking water can also help to thin mucus and reduce conges tion. It's important to allow your body to cough up mucus to get better. Renetta Armando RN 09/20/2020, 4:07 PM Renetta Armando RN - 09/20/2020 2:59 PM CDT Office Visit on 09/17/2020 Component Date Value Ref Range Status ??? SARS CORONAVIRUS 2 RNA IN RESPIRAT* 09/17/2020 Detected* Not Detected Final Attempted to reach patient regarding their COVID-19 test results. Message Left to call back to clinic. Renetta Armando RN 09/20/2020, 3:02 PM documented in this encounter Plan of Treatment Upcoming Encounters Date Type Specialty Care Team Description 12/02/2022 Appointment Obstetrics & Gynecology [place], [place] [address] [address] (Wo rk) documented as of this encounter Visit Diagnoses Not on filedocumented in this encounter Additional Health Concerns Infection Onset Date Last Indicated Resolved Time R/O COVID19 09/17/2020 09/17/2020 09/20/2020 2:50 PM CDT COVID19 09/17/2020 09/17/2020 10/08/2020 3:18 AM FASHION INTERN documented as of this encounter Care Teams Client Care Consultant Relationship Specialty Start Date End Date Unassigned, Provider PCP - General 08/26/[address] [place] [id number] documented as of this encounter
--- OUTSIDE RECORDS SUMMARY | 2022-10-10 23:56 | XMS_ITS | Encounter Summary ---
:1995 Author Organization [employer] Address [address] [place] [address] Care Team Providers Name Role Phone Unassigned, Provider Primary Care Provider Unavailable Reason for Visit Reason Comments Video Visit COUGH Sore Throat Encounter Details Date Type Department Care Team Description 09/15/2020 Telemedicine [facility] Virtual Savannah Montalvo C lose exposure to COVID-19 virus (Primary Dx); Primary Care STEVE Cough; [address] [place] [address] [facility] [place] [address] [phone] Social History Tobacco Use Types Packs/Day Years Used Date Smoking Tobacco: Never Assessed Sex Assigned at Date Recorded Not on file documented as of this encounter Progress Notes Savannah Montalvo PA-C - 09/15/2020 11:00 AM CDT Subjective: Today's visit with Yancy was conducted as a scheduled video visit. Pt scheduled a video visit for not feeling well. Started with cough, sore throat, runny nose and body aches on . No fevers, no loss of smell or taste, no chest pain, no diarrhea. She does feel a little SOB at times. Denies any swollen glands, not worried about strep. She also was with 2 girlfriends last Thursday who started having symptoms on also and then tested positive and results came back yesterday. She has tried Tylenol and fluids and that helps. She is 9 weeks with their first child. 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 Objective: There were no vitals taken for this visit. Pleasant, NAD, normal affect. HEENT: Sounds congested, scratchy throat. Lungs: Mild cough, no SOB with talking today. Assessment/Plan: Close exposure to COVID-19 virus - 2019 Novel Coronavirus (COVID-19); Future Cough - 2019 Novel Coronavirus (COVID-19); Future Sore throat - 2019 Novel Coronavirus (COVID-19); Future Other orders - vitamin-ferrous fumarate-folic acid (PRENATALPLUS) 27-1 MG tablet; Take 1 Tablet by mouthdaily. Pt scheduled for covid testing, will quarantine as directed, symptomatic tx discussed. She will call with any questions or concerns. [facility] Clinician located at home. Patient located at home Billing based on: Complexity Savannah Montalvo PA-C documented in this encounter Plan of Treatment Upcoming Encounters Date Type Specialty Care Team Description 12/02/2022 Appointment Obstetrics & [place] [address] [address] (Wo rk) documented as of this encounter Results (ABNORMAL) 2019 Novel Coronavirus (COVID-19) (09/17/2020 2:42 PM CDT) [facility] Method Time Signature SARS Detected (A) Not [...] for the duration of time that the [place] of the [facility] declares circumstances exist j ustifying the authorization of the emerg ency use of in vitro diagnostic tests for detection of SARS-CoV-2 virus and/or diagnosis of COVID-19 infection under section 564(b)(1) of the Act, 21 U.S.C. 360bb b-3(b)(1), unless the authorization is t erminated or revoked sooner. To learn more about this test, go to [facility] [email or web address] Performed by: PARUL Tijerina [id number], CLIA [id number], [address] [place] [address] Catheter Finisher And Inspector: Boo Gasca, Ph D, [facility], FFSC ([facility]) Specimen Anatomical Collection Method Collection Time Receive d Time (Source) Location / / Volume Laterality Swab (Source Non-blood 09/17/2020 2:42 PM 0 4:31 Required) Collection / CDT PM CDT Unknown Savannah Montalvo PA-C LAB_1 Performing Organization Address City/State/ZIP Code Phon e Number [place] [address] [place] [address] documented in this encounter Visit Diagnoses Diagnosis Close exposure to COVID-19 virus - Prima ry Cough Sore throat Acute pharyngitis documented in this encounter Care Teams Diecast Machine Operator Relationship Specialty Start Date End Date Unassigned, Provider PCP - General 08/26/[address] [place] [address] documented as of this encounter
--- OUTSIDE RECORDS SUMMARY | 2022-10-10 23:56 | XMS_ITS | Encounter Summary ---
:1995 Author Organization [facility] Address [address] [place] [address] Care Team Providers Name Role Phone Unassigned, Provider Primary Care Provider Unavailable Reason for Visit Procedure/Equipment (Routine) - Incomplete Specialty Diagnoses / Procedures Referred By Contact Refer red To Contact Diagnoses Encounter for supervision of normal first in second trimester COVID-19 affecting in first trimester Adriana Neely MD Procedures US OB Follow-Up For Growth Single (Includes MAURICE) [id number] [facility] [address] [place] [address] Referral ID Status Reason Start Date Expiration Date Visits V isits Requested Authorized [id number] Incomplete 02/07/2021 05/09/2022 10 10 Encounter Details Date Type Department Care Team Description 02/21/2021 Ancillary [facility] Adriana Neely r for supervision of normal first in second trimester; Procedure Services-Ultrasound MD Marisela COVID-19 affecting in first tr imester [address] [address], [address] [place] [address] [place] [id number] [phone] Social History Tobacco Use Types Packs/Day Years [...] Appointment Obstetrics & [place] [id number] [address] (Wo rk) documented as of this encounter Procedures Procedure Name Priority Date/Time Associated Diagnosis Comme [facility] US OB FOLLOW-UP FOR Routine 02/21/2021 11:45 AM Encounter for Results for this GROWTH SINGLE CDT supervision of procedure ar e in (INCLUDES MAURICE) normal first the results in second section. trimester COVID-19 affecting in first trimester documented in this encounter Results US OB Follow-Up For Growth Single (Includes MAURICE) (02/21/2021 11:45 AM CDT) Anatomical Region Laterality Modality Pelvis Ultrasound Specimen (Source) Anatomical Collection Method Collection Time Re ceived Time Location / / Volume Laterality 02/21/2021 11:26 AM CDT Impressions 02/21/2021 1:15 PM CDT COMPARISON: ??12/11/2020 TECHNIQUE: Limited ultrasound examinatio n was performed for evaluation of growth, amniotic fluid index (MAURICE). Type of Gestation: ??Irvin. Presentation: ??VERTEX Movement Present: ??Yes Cardiac Rate: ??137 bpm and is regular 4-quadrant MAURICE: 11.0 cm. Normal. Q1: 3.3 cm. Q2: 0.0 cm. Q3: 3.7 cm. Q4: 4.0 cm. Placental Position: POSTERIOR. Edge not seen. Cervical Length (cm): ?? Not visualized Measurements (Source Hadlock): BPD: ??8.4 cm = 34w0d HC: 29.8 cm = 33w0d AC: ??29.2 cm = 33w1d FL: ??6.1 cm = 31w6d Anatomic Ratios: ??Within normal limits. Abdominal Circumference Percentile: 67.3 % Estimated Weight: ??2 grams Weight Percentile: 48.5% Other Findings: None. GA by LMP: ??32w4d GA by Prior US: ??33w1d GA by today's US: ??32w3d BRIANNE by today's US: ??04/15/2021 IMPRESSION: 1. Single living IUP vertex position 32 weeks 3 days gestation with EDC 04/15/2021. 2. weight 2062 g corresponding to weight percentile of 49. Abdominal circumference percentile 67. MAURICE results called: NA Procedure Note Felix Evans MD - 02/21/2021Format ting of this note might be different from the original. IMPRESSION COMPARISON: 12/11/2020 TECHNIQUE: Limited ultrasound examinatio n was performed for evaluation of growth, amniotic fluid index (MAURICE). Type of Gestation: Irvin. Presentation: VERTEX Movement Present: Yes Cardiac Rate: 137 bpm and is regular 4-quadrant MAURICE: 11.0 cm. Normal. Q1: 3.3 cm. Q2: 0.0 cm. Q3: 3.7 cm. Q4: 4.0 cm. Placental Position: POSTERIOR. Edge not seen. Cervical Length (cm): Not visualized Measurements (Source Hadlock): BPD: 8.4 cm = 34w0d HC: 29.8 cm = 33w0d AC: 29.2 cm = 33w1d FL: 6.1 cm = 31w6d Anatomic Ratios: Within normal limits. Abdominal Circumference Percentile: 67.3 % Estimated Weight: 2062 grams Weight Percentile: 48.5% Other Findings: None. GA by LMP: 32w4d GA by Prior US: 33w1d GA by today's US: 32w3d BRIANNE by today's US: 04/15/2021 IMPRESSION: 1. Single living IUP vertex position 32 weeks 3 days gestation with EDC 04/15/2021. 2. weight 2062 g corresponding to weight percentile of 49. Abdominal circumference percentile 67. MAURICE results called: NA Adriana Neely MD [facility] documented in this encounter Visit Diagnoses Diagnosis Encounter for supervision of normal firs t in second trimester Supervision of normal first COVID-19 affecting in first tr imester documented in this encounter Care Teams Concrete Technician Relationship Specialty Start Date End Date Unassigned, Provider PCP - General 08/26/[address] [place] [address] documented as of this encounter
--- OUTSIDE RECORDS SUMMARY | 2022-10-10 23:56 | XMS_ITS | Encounter Summary ---
:1995 Author Organization [employer] Address [address] [place] [address] Care Team Providers Name Role Phone Unassigned, Provider Primary Care Provider Unavailable Reason for Referral Therapies (Routine) - Closed Specialty Diagnoses / Procedures Referred By Contact Refer red To Contact Diagnoses Vaginismus Alexa Macario APRN, CNP [address] [place] [address] Referral ID Status Reason Start Date Expiration Date Visits Requ ested Visits Authorized [id number] Closed 11/20/2020 01/19/2021 1 1 Scheduling Instructions Your provider has recommended an appoint ment with [facility]. You may call [phone] to schedule your a ppointment. We suggest you call your health insurance company about your coverage an d benefits for this appointment. TER SUBMARINE CABLE Procedure/Equipment (Routine) - Incomplete Specialty Diagnoses / Procedures Referred By Contact Refer red To Contact Diagnoses Encounter for supervision of normal first in second trimester Alexa Macario APRN, CNP Procedures US OB 20 Weeks Complete Single [address] [place] [address] Referral ID Status Reason Start Date Expiration Date Visits V isits Requested Authorized [id number] Incomplete 11/20/2020 02/19/2022 1 1 [address] SUBMARINE CABLE Reason for Visit Reason Comments INITIAL VISIT Encounter Details Date Type Department Care Team Description 11/20/2020 Initial [facility] Alexa Macario I NITIAL Services-COMPRESS ENGINEER FAMILY MEDICINE PHYSICIAN ASSISTANT, ENLISTED AIRCREW/AERIAL OBSERVER/GUNNER VISIT [address] [address] [facility], [address] [place], [place] [phone] Social History Tobacco Use Types Packs/Day Years Used Date Smoking Tobacco: Never Smokeless Tobacco: Never Alcohol Use Standard Drinks/Week Comments Not Currently 0 (1 standard drink = 0.6 oz pure alcoho l) Sex Assigned at Date Recorded Not on file documented as of this encounter Last Filed Vital Signs Vital Sign Reading Time Taken Comments Blood Pressure 128/68 11/20/2020 8:10 AM JOINTER SUBMARINE CABLE Pulse 95 11/20/2020 8:10 AM JOINTER SUBMARINE CABLE Temperature - - Respiratory Rate - - Oxygen Saturation - - Inhaled Oxygen Concentration - - Weight 72.6 kg (160 lb) 11/20/2020 8:10 AM JOINTER SUBMARINE CABLE Height 157.5 cm (5' 2) 11/20/2020 8:10 AM JOINTER SUBMARINE CABLE Body Mass Index 29.26 11/20/2020 8:10 AM JOINTER SUBMARINE CABLE documented in this encounter Progress Notes Alexa Macario, FAMILY MEDICINE PHYSICIAN ASSISTANT, ENLISTED AIRCREW/AERIAL OBSERVER/GUNNER - 11/20/2020 8:00 AM CST CHIEF COMPLAINT: New Ob Visit SUBJECTIVE: Yancy Clinton is a 25 year old female, G 1 P0000 who is being evaluated today for initial care. She is a transferring care from the [facility]. Records were not available for review until patient sign release form at the beginning of this visit. She is transferring care because she was not entirely satisfied with her care there and would like to deliver within the [facility]. LMP: 07/08/2020 (exact dates) Date of positive test: 08/16/2020 Menstrual cycles interval: 30 days and no control used. EDC by LMP: 04/14/2021 Dating ultrasound: 09/20/2020 ultrasound measured 11 week 1 day IUP, FHR 173, EDC 04/10/2021. Working EDC: 04/14/2021 based on the LMP. Today's gestational age: 19 weeks 2 days. Tests completed at prior clinic: Labs: -Blood Type: O -Antibody screen: Negative -HepBsAg: Negative -HIV: Nonreactive -rubella: Immune -urine culture: Negative -RPR: Negative -CBC: Hemoglobin 13.5, platelets 249 Flu shot: Not completed. Advised today and patient accepts. Genetic screens: none Genetic diagnostic tests: none 20wk US: none Current symptoms: Total weight gain: Starting weight 145/150 per patient. Weight today is 160 lb. BMI 29. No vaginal bleeding, LOF or contractions. +FM. She has experience some round ligament pain with certain movements. No Tylenol used. OBHX: OB History Para Term AB Living 1 0 0 0 0 0 SAB TAB Ectopic Multiple Live Births 0 0 0 0 0 # Outcome Date GA Lbr Sherwin/2nd Weight Sex Delivery Anes PTL Lv 1 Current Medications: Current Outpatient Medications Medication Sig Dispense Refill ??? fluocinolone (SYNALAR) 0.01 % cream Apply topically two times a day. ??? vitamin-ferrous fumarate-folic acid (PRENATALPLUS) 27-1 MG tablet Take 1 Tablet by mouth daily. ??? triamcinolone acetonide (KENALOG) 0.025 % cream Apply topically two times a day. No current facility-administered medications for this visit. Allergy: Allergies Allergen Reactions ??? Zithromax [Azithromycin] Rash PMH: Past Medical History: Diagnosis Date ??? Pap smear abnormality of cervix ??? Varicella Last pap smear: 2017 negative/HPV negative. History of abnormal: yes. Hx of LEEP/Cryo: no. --2013 LSIL --2006 pap ascus/HPV negative --2018 negative/HPV negative Immunizations: -- Varicella as a child: yes Infections: -- History of STDs: no -- Hx of tuberculosis: no, lived with someone who had tuberculosis: No -- Hx of MRSA: no -- Cat exposure: no -- Hx of travel outside of [place]: None. Advised no travel to Zika infected areas for self or partner. Negative history of a blood transfusion. She would accept blood products if needed. PSH: Past Surgical History: Procedure Laterality Date ??? WISDOM TEETH EXTRACTION PFH: Family History Problem Relation Age of Onset ??? Stroke Mother ??? Stroke Maternal Grandfather ??? Diabetes Paternal Grandmother ??? Diabetes Paternal Grandfather Genetic History: Genetic history section reviewed in EMR. Patient is not AMA at delivery. Mother's ethnicity: White Father's ethnicity: White. This is his 1st child. Admits genetic conditions in her or the father of the baby's family history. -pt had a cousin who a ???hole in her heart. This was surgically repaired. Patient admits FHX of blood clots/clotting disorder. MGF had blood clots. He was ill at the time andhad a stroke. Patient denies FHX of bleeding disorder. Social History: Marital status: She does not have concerns for domestic violence. 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 COVID precautions are used. Lead screen: positive. Negative history of drug use. Advised urine drug screen is collected today. Review of Systems: With the exception of any items noted above, the remainder of the complete ROS is negative. OBJECTIVE: Patient was offered a systems checkout mechanic for visit and declined. BP 128/68 (BP Location: Right Arm, BP Cuff Size: Regular) Pulse 95 Ht 5' 2 (1.575 m) Wt 160 lb (72.6 kg) LMP 07/08/2020 (Exact Date) BMI 29.26 kg/m?? General: Patient alert, in NAD. HEENT: Pupils equal, sclera clear. Oropharynx normal. Neck: Supple, without thyromegaly or mass. Breasts: Normal in size and symmetry, normal in contour with no evidence of flattening or dimpling, skin is normal, nipples are everted without rashes or discharge bilateral. Palpation is negative for tenderness or masses bilateral. CV: Regular rate and rhythm. No murmur. Resp: Clear to auscultation Abdomen: soft, non-tender, without masses or organomegaly Lymphatic: No neck, supraclavicular, axillary or groin lymphadenopathy. Lower Extremities: Full ROM, normal gait without edema, lesions, or deformity. Genitourinary: External genitalia: normal without lesions. Vagina: Patient was extremely tense for exam. normal appearing vaginal epithelium, no discharge. No lesions. Cervix: Patient was extremely tense for exam. No cervical motion tenderness, normal appearance without discharge or lesions. Pap deferred, GC/CT culture obtained. Uterus: 19 wk size, shape, consistency and nontender. FHTs: 144. Adenexa: normal size, nontender, no masses. Anus: normal, no hemorrhoids. Rectal: deferred. Bladder: Nontender, no palpable masses Urethra: Nontender, no discharge Skin: No lesions. Neuro: Motor & sensory function all intact. Psychiatric: Alert & oriented with normal affect and insight. Patient does not appear depressed or anxious. ASSESSMENT: New OB Transfer 19 weeks Vaginismus PLAN: New OB labs including: blood type, antibody screen, hemoglobin A1C, urine drug screen, lead, gonorrhea and chlamydia culture Medications: - vitamins Flu vaccine 20 week ultrasound. [facility] Your Guide to Booklet reviewed. Discussed genetic screens, diagnostic tests per ACOG guidelines appropriate for age and history. Pt declines testing. She will check insurance and call for apt if interested. She is aware that this is a time sensitive test. BMI 29. Discussed diet and weight gain advised based on prepregnancy BMI. BMI <18.5 (underweight) -- wt gain 28-40 # BMI 18.5 to 24.9 (normal weight) -- wt gain 25-35 # BMI 25.0 to 29.9 (overweight) -- wt gain 15-25 # BMI = 30 (obese) -- wt gain 11-20 # Vaginismus. Patient was very uncomfortable for pot maker exam today. States intercourse can also be uncomfortable and these exams have always been difficult. We discussed consult with physical therapy for pelvic floor relaxation training. She was interested in consult placed. SAB precautions given. Follow-up in 3 weeks with M.D. appointment. Starting time 8:10 am. Ending time 9:10 am. 50 minutes of a 60 minutes visit was used to discuss medical history, obstetric history vaginismus and referral to physical therapy. She was also counseled on OB department orientation, education noted on the Epic checklist. Dictation disclaimer: Some notes are completed with voice-recognition dictation software. Typographical errors may result. Please contact me via [facility] staff message if you note any errors requiring clarification. TER SUBMARINE CABLE Alexa Macario APRN, CNP - 11/20/2020 8:00 AM CST Gonorrhea and Chlamydia labs negative. Patient will be notified with serum NOB results. They will also be reviewed at the NOB2 appointment. MORGAN TER SUBMARINE CABLE documented in this encounter Plan of Treatment Upcoming Encounters Date Type Specialty Care Team Description 12/02/2022 Appointment Obstetrics & [place] [address] [facility] [address] [place], [place] [address] (Wo rk) Scheduled Referrals Name Type Priority Associated Diagnoses Order S chedule Physical Therapy Referral Routine Vaginismus Ordered: documented as of this encounter Procedures Procedure Name Priority Date/Time Associated Diagnosis Comme nts CHLAMYDIA & GC (14 Routine 11/20/2020 1:[address] D Results for this YEARS AND OLDER) JOINTER SUBMARINE CABLE (sexually procedure a re in transmitted disease) the res ults section. documented in this encounter Results US OB 20 Weeks Complete Single (11/26/2020 8:14 AM JOINTER SUBMARINE CABLE) Anatomical Region Laterality Modality Pelvis Ultrasound Study [...] / / Volume Laterality 11/26/2020 7:12 AM JOINTER SUBMARINE CABLE Impressions 11/26/2020 8:20 AM JOINTER SUBMARINE CABLE COMPARISON: ??None. ?? TECHNIQUE: A level 1 [...] 2 ultrasound is recommended. Alexa Macario APRN, CNP [facility] Chlamydia and GC STD (11/20/2020 1:16 PM JOINTER SUBMARINE CABLE) Patholo gist Method Time Signature Chlamydia Not Not 11/21/2020 [facility] Trachomatis Detected Detected 12:21 PM CENTRAL LAB STD JOINTER SUBMARINE CABLE N. gonorrhoeae Not Not 11/21/2020 [facility] STD Detected Detected 12:21 PM CENTRAL LAB JOINTER SUBMARINE CABLE Specimen Anatomical Collection Method Collection Time Receive d Time (Source) Location / / Volume Laterality Swab STD ENTIRE ENDOCERVIX Non-blood 11/20/2020 1:16 PM 10/24 1:19 / Unknown Collection / JOINTER SUBMARINE CABLE PM JOINTER SUBMARINE CABLE Unknown Narrative [facility] - 11/21/2020 12:21 PM JOINTER SUBMARINE CABLE Test performed by Molecular Detection Alexa Macario APRN, CNP LAB_1 Performing Organization Address City/State/ZIP Code Phon e Number [facility] CENTRAL LAB [address] [address] Lead, Venous (11/20/2020 9:23 AM JOINTER SUBMARINE CABLE) P athologist Signature Lead, Whole <2.0 <=4.9 11/21/2020 [facility] Venous ug/dL 4:58 PM JOINTER SUBMARINE CABLE LABORATORIES Comment: INTERPRETIVE INFORMATION: Lead, Blood (V enous) Elevated results may be due to skin or c ollection-related contamination, including the use of a no ncertified lead-free tube. If contamination concerns exist due to e levated levels of blood lead, confirmation with a second specime n collected in a certified lead-free tube is recommended. Information sources for reference interv als and interpretive comments include the CDC Response to th e 2011 Advisory Committee on Childhood Lead Poisoning Prevention R kei and the Recommendations for Medical Management of Adult Lead Exposure, Environmental Health Perspectives, 2007. Thresholds and time intervals for retesting, medical evaluat ion, and response vary by state and regulatory body. Contact your State Department of Health and/or applicable regulatory agency for specific guidance on medical management recommendations. Age ?Concentration ?? Co mment All ages ? 5-9.9 ug/dL ? Adve rse health effects are ? possible, particularly in ? children under 6 years of ? age and women. ? Discuss health risks ? associated with continued ? lead exposure. For children ? and women who are or may ? become , reduce ? lead exposure. ? All ages ?10-19.9 ug/dL ??Redu curtis lead exposure and ? increased biological ? monitoring are recommended. All ages ?20-69.9 ug/dL ??Luisito codey from lead exposure ? and prompt medical ? evaluation are recommended. ? Consider chelation therapy ? when concentrations exceed ? 50 ug/dL and symptoms of ? lead toxicity are present. Less than 19 ? Greater than ??Critic al. Immediate medical years of age ? 44.9 ug/dL ?evalu ation is recommended. ? Consider chelation therapy ? when symptoms of lead ? toxicity are present. Greater than 19 ??Greater than ??Critica l. Immediate medical years of age ? 69.9 ug/dL ?evalu ation is recommended ? Consider chelation therapy ? when symptoms of lead ? toxicity are present. Test developed and characteristics deter mined by [facility]. See Compliance Statement B : [employer] Performed By: [facility] [address] [place] [id number] Gristmill Operator: Susan Cope MD Specimen Anatomical Collection Method / Collection Time Recei clint Time (Source) Location / Volume Laterality Blood Venipuncture / 11/20/2020 9:23 11/20/2020 9:23 Unknown AM JOINTER SUBMARINE CABLE AM JOINTER SUBMARINE CABLE Alexa Watts Renaldo AYERS CNP LAB_1 Performing Organization Address [facility]/ZIP [facility] Phon e Number [employer] [address] [place] [address] [phone] Antibody Screen (11/20/2020 9:23 AM JOINTER SUBMARINE CABLE) Patholo gist Method Time Signature Antibody Screen Negative 11/20/2020 [facility] Interpretation 1:25 PM JOINTER SUBMARINE CABLE BLOOD BANK Specimen Anatomical Collection Method / Collection Time Recei clint Time (Source) Location / Volume Laterality Blood Venipuncture / 11/20/2020 9:23 11/20/2020 9:23 Unknown AM JOINTER SUBMARINE CABLE AM JOINTER SUBMARINE CABLE Alexa Watts Renaldo AYERS CNP LAB_1 Performing Organization Address City/[facility] Phon e Number [facility] BLOOD BANK [address] [place] [address] Blood Group & RH (Blood Type) (11/20/2020 9:23 AM JOINTER SUBMARINE CABLE) P athologist Signature ABO O 11/20/2020 [facility] 1:25 PM JOINTER SUBMARINE CABLE BLOOD BANK RH Positive 11/20/2020 [facility] 1:25 PM JOINTER SUBMARINE CABLE BLOOD BANK Specimen Anatomical Collection Method / Collection Time Recei clint Time (Source) Location / Volume Laterality Blood Venipuncture / 11/20/2020 9:23 11/20/2020 9:23 Unknown AM JOINTER SUBMARINE CABLE AM JOINTER SUBMARINE CABLE Alexa Watts Renaldo AYERS CNP LAB_1 Performing Organization Address City/State/ZIP Code Phon e Number [facility]OD [facility] [address] [place] [address] HGB A1C (11/20/2020 9:23 AM JOINTER SUBMARINE CABLE) [facility] gist Method Time Signature Hemoglobin A1C 4.9 <=5.6 % 11/20/2020 [facility] 2:16 PM JOINTER SUBMARINE CABLE CENTRAL LAB Specimen Anatomical Collection Method / Collection Time Recei clint Time (Source) Location / Volume Laterality Blood Venipuncture / 11/20/2020 9:23 11/20/2020 9:23 Unknown AM JOINTER SUBMARINE CABLE AM JOINTER SUBMARINE CABLE Alexa Watts Renaldo AYERS CNP LAB_1 Performing Organization Address City/[facility]/ZIP Code Phon e Number [facility] CENTRAL LAB [address] [address] documented in this encounter Visit Diagnoses Diagnosis Encounter for supervision of normal firs t in second trimester - Primary Supervision of normal first Vaginismus Screening for diabetes mellitus Encounter for blood typing screening for isoimmunization Encounter for drug screening Screening for STD (sexually transmitted disease) Screening examination for venereal disea se Encounter for supervision of normal firs t in second trimester Supervision of normal first documented in this encounter Care Teams Production Broaching Machine Operator Relationship Specialty Start Date End Date Unassigned, Provider PCP - General 08/26/[address] [place] [id number] documented as of this encounter
--- OUTSIDE RECORDS SUMMARY | 2022-10-10 23:56 | XMS_ITS | Encounter Summary ---
:1995 Author Organization [employer] Address [address] [place] [address] Care Team Providers Name Role Phone Unassigned, Provider Primary Care Provider Unavailable Encounter Details Date Type Department Care Team Description 01/10/2021 Lab Visit [facility] Encounter for supervision Services-[place] [facility] of normal first [address] [facility], [address] in second trimester [address] [place] [phone] Social History Tobacco Use Types Packs/Day Years Used Date Smoking Tobacco: Never Smokeless Tobacco: Never Alcohol Use Standard Drinks/Week Comments Not Currently 0 (1 standard drink = 0.6 oz pure alcoho l) Sex Assigned at Date Recorded Not on file documented as of this encounter Progress Notes Adriana Neely MD - 01/10/2021 4:30 PM CST Please call the patient and let her know that she passed her diabetes screen. In addition, her hemoglobin is stable at 12.3. We will review these lab results in more detail at her next OB appointment. Please and thank you! OWS APPLICATION DEVELOPER documented in this encounter Plan of Treatment Upcoming Encounters Date Type Specialty Care Team Description 12/02/2022 Appointment Obstetrics & [place] [address] [facility] [address] [place], [place] [address] (Wo rk) documented as of this encounter Procedures Procedure Name Priority Date/Time Associated Diagnosis Comme nts RPR WITH REFLEX TO Routine 01/10/2021 4:31 PM Encounter for Re sults for this TITER WINDOWS APPLICATION DEVELOPER supervision of procedure are in normal first the results in second section. trimester COMPLETE BLOOD Routine 01/10/2021 4:31 PM Encounter for Result s for this COUNT-NO DIFF WINDOWS APPLICATION DEVELOPER supervision of procedure ar e in normal first the results in second section. trimester GLUCOSE - 1 HR. Routine 01/10/2021 4:31 PM Encounter for Resul ts for this P.C. PREG WINDOWS APPLICATION DEVELOPER supervision of procedure are in normal first the results in second section. trimester documented in this encounter Results RPR with Reflex to Titer (01/10/2021 4:31 PM WINDOWS APPLICATION DEVELOPER) [facility] Method Time Signature RAPID PLASMA Non Reactive Non 01/12/2021 [facility] REAGIN (RPR) Reactive 9:44 AM WINDOWS APPLICATION DEVELOPER LAB[facility]IES Comment: Rapid Plasma Reagin screening test is No n-Reactive. No further reflex testing is required. Performed By: [facility] [address] [place] [id number] Superintendent Construction: Susan Cope MD Specimen Anatomical Collection Method / Collection Time Recei clint Time (Source) Location / Volume Laterality Blood Venipuncture / 01/10/2021 4:31 01/10/2021 4:31 Unknown PM WINDOWS APPLICATION DEVELOPER PM WINDOWS APPLICATION DEVELOPER Adriana Neely MD LAB_1 Performing Organization Address City/[facility]/ZIP Code Phon e Number [email or web address] [address] [phone] Glucose, 1 hr. PC - [facility]ut[facility]rez [GLUOS] (01/10/2021 4:31 PM WINDOWS APPLICATION DEVELOPER) athologist Signature Glucose, 1 84 70 - 135 01/11/[address] [facility] OB mg/dL 11:43 AM WINDOWS APPLICATION DEVELOPER LABORATORY Challenge Specimen Anatomical Collection Method / Collection Time Recei clint Time (Source) Location / Volume Laterality Blood Venipuncture / 01/10/2021 4:31 01/10/2021 4:31 Unknown PM WINDOWS APPLICATION DEVELOPER PM WINDOWS APPLICATION DEVELOPER Adriana Neely MD LAB_1 Performing Organization Address City/[facility]/ZIP Code Phon e Number [facility] [address] [place] [phone] (ABNORMAL) CBC - Complete Blood Count - No Diff [ABC] (01/10/2021 4:31 PM WINDOWS APPLICATION DEVELOPER) [facility] gist Method Time Signature WBC 14.2 (H) 3.5 - 10.5 01/11/2021 HOME x10(9)/L 11:25 AM WINDOWS APPLICATION DEVELOPER [facility] RBC 3.89 (L) 3.90 - 01/11/2021 HOME 5.03 11:25 AM WINDOWS APPLICATION DEVELOPER LAB[facility] x10(12)/L Hemoglobin 12.3 12.0 - 01/11/2021 HOME 15.5 g/dL 11:25 AM WINDOWS APPLICATION DEVELOPER [facility] HCT 37.0 34.9 - 01/11/2021 HOME 44.5 % 11:25 AM WINDOWS APPLICATION DEVELOPER [facility] MCV 95.1 80.0 - 01/11/2021 HOME 100.0 fL 11:25 AM WINDOWS APPLICATION DEVELOPER LAB[facility] MCH 31.6 27.6 - 01/11/2021 HOME 33.3 pg 11:25 AM WINDOWS APPLICATION DEVELOPER LAB[facility] MCHC 33.2 31.5 - 01/11/2021 HOME 35.2 g/dL 11:25 AM WINDOWS APPLICATION DEVELOPER [facility] RDW 13.1 11.9 - 01/11/2021 HOME 15.5 % 11:25 AM WINDOWS APPLICATION DEVELOPER [facility] Platelets 236 150 - 450 01/11/2021 HOME x10(9)/L 11:25 AM WINDOWS APPLICATION DEVELOPER [facility] Automated NRBC 0 <=0 /100 01/11/2021 HOME WBC 11:25 AM WINDOWS APPLICATION DEVELOPER [facility] Specimen Anatomical Collection Method / Collection Time Recei clint Time (Source) Location / Volume Laterality Blood Venipuncture / 01/10/2021 4:31 01/10/2021 4:31 Unknown PM WINDOWS APPLICATION DEVELOPER PM WINDOWS APPLICATION DEVELOPER Adriana Neely MD LAB_1 Performing Organization Address City/State/ZIP Code Phon e Number [facility] [address] [place] [phone] documented in this encounter Visit Diagnoses Diagnosis Encounter for supervision of normal firs t in second trimester Supervision of normal first documented in this encounter Care Teams Dewaterer Operator Relationship Specialty Start Date End Date Unassigned, Provider PCP - General 08/26/[address] [place] [phone] documented as of this encounter
--- OUTSIDE RECORDS SUMMARY | 2022-10-10 23:56 | XMS_ITS | Encounter Summary ---
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 OFFICER MD Marisela Visit (36w 4d) [address], [address] [id number] Social History Tobacco Use Types Packs/Day Years Used Date Smoking Tobacco: Never Smokeless Tobacco: Never Alcohol Use Standard Drinks/Week Comments Not Currently 0 (1 standard drink = 0.6 oz pure alcoho l) Sex Assigned at Date Recorded Not on file documented as of this encounter Last Filed Vital Signs Vital Sign Reading Time Taken Comments Blood Pressure 115/63 03/21/2021 2:57 PM CDT Pulse 104 03/21/2021 2:57 PM CDT Temperature - - Respiratory Rate - - Oxygen Saturation - - Inhaled Oxygen Concentration - - Weight 86.3 kg (190 lb 3.2 oz) 03/21/2021 2:57 PM CDT Height - - Body Mass Index 34.79 11/20/2020 8: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 1. Go to https://www.[employer]healthlibrary. 2. Enter M001 in the search box. Current as of: August 30, 2020?Content Version: 12.8 ?? [employer]. Care instructions adapted under license by your healthcare professional. If you have questions abouta medical condition or this instruction, always ask your healthcare professional. [employer] disclaims any warranty or liability for your use of this information. PUPPP (Pruritic Urticarial Papules and Plaques of ): Care Instructions Your Care Instructions Pruritic urticarial papules and plaques of (PUPPP) is a red, raised rash that itches. It most often occurs in a first . The rash may appear first on stretch lowe on the stomach. Then it may spread to the thighs, rear end (buttocks), and arms. PUPPP is not a serious condition and does not cause problems for your baby. But it can be very upsetting for you. Controlling your symptoms is the main focus of treatment. PUPPP usually goes away on its own within a week after . The condition is treated with medicineto stop the itching. Follow-up care is a norman part of your treatment and safety. Be sure to make and go to all appointments, and call your doctor if you are having problems. It's also a good idea to know your test results and keep a list of the medicines you take. How can you care for yourself at home? ?? Use anti-itch creams as directed by your doctor. You may want to use ssja-jjh-skhtdbs calamine lotion. ?? If the itching is very bad, you may be given corticosteroid pills to stop the itching. Take your medicines exactly as prescribed. Call your doctor if you think you are having a problem with your medicine. ?? Take oatmeal baths (such as Aveeno) in warm water. ?? Put a cool, wet towel on the itchy area. ?? Take steps to control your stress. Learn relaxation techniques or keep yourself busy so that you do not focus on the itching. When should you call for help? Watch closely for changes in your health, and be sure to contact your doctor if: ? You do not get better as expected. Where can you learn more? 1. Go to https://www.[employer]healthlibrary. 2. Enter T363 in the search box. Current as of: August 30, 2020?Content Version: 12.8 ?? [employer]. Care instructions adapted under license by your healthcare professional. If you have questions abouta medical condition or this instruction, always ask your healthcare professional. [employer] disclaims any warranty or liability for your use of this information. Early Stage of Labor at Home: Care Instructions Overview If you came to the hospital while in early labor, your doctor may ask you to labor at home until your contractions are stronger. Many women stay at home during early labor. This is often the longest part of the birthing process. It may last up to 2 to 3 days. Contractions are mild to moderate and shorter (about 30 to 45 seconds). You can usually keep talking during them. Contractions may also be irregular, about 5 to 20 minutesapart. They may even stop for a while. It helps to stay as relaxed as you can during this time. You can spend some or all of your early labor at home or anywhere else you may be comfortable. If you live far from the hospital or birthing center, you may want to think about going somewhere nearby so you can get back to the hospital quickly. For some women, there may be benefits to staying home during early labor, such as avoiding medicinesor procedures. As labor progresses, you'll shift from early labor to active labor. During this time, contractions get more intense. They occur more often, about every 2 to 3 minutes. They also last longer, about 50 to 70 seconds. You will feel them even when you change positions and walk or move around. It may be hard to tell if you are in active labor. If you aren't sure, call your doctor or pe teacher. As your labor progresses, check in with your doctor or pe teacher about when to come back to the hospital or birthing center. You may have special instructions if your water broke or you tested positive for group B strep. Follow-up care is a norman part of your treatment and safety. Be sure to make and go to all appointments, and call your doctor if you are having problems. It's also a good idea to know your test results and keep a list of the medicines you take. How can you care for yourself at home? ?? Get support. Having a support person with you from early labor until after childbirth can have a positive effect on childbirth. ?? Find distractions. During early labor, you can walk, play cards, watch TV, or listen to music to help take your mind off your contractions. ?? Ask your partner, labor coach wirer, or integrated marketing manager for a massage. Shoulder and low back massage during contractions may ease your pain. Strong massage of the back muscles (counterpressure) during contractions may help relieve the pain of back labor. Tell your labor coach wirer exactly where to push and how hard to push. ?? Use imagery. This means using your imagination to decrease your pain. For instance, to help manage pain, picture your contractions as waves rolling over you. Picture a peaceful place, such as a beach or mountain stream, to help you relax between contractions. ?? Change positions during labor. Walking, kneeling, or sitting on a big rubber ball ( ball) are good options. ?? Use focused breathing techniques. Breathing in a rhythm can distract you from pain. ?? Take a warm shower or bath. Warm water may ease pain and stress. When should you call for help? Call 911 anytime you think you may need emergency care. For example, call if: ? You passed out (lost consciousness). ? You have a seizure. ? You have severe vaginal bleeding. ? You have severe pain in your belly or pelvis that doesn't get better between contractions. ? You have had fluid gushing or leaking from your vagina and you know or think the umbilical cord is bulging into your vagina. If this happens, immediately get down on your knees so your rear end (buttocks) is higher than your head. This will decrease the pressure on the cord until help arrives. Call your doctor now or seek immediate medical care if: ? You have new or worse signs of preeclampsia, such as: ? Sudden swelling of your face, hands, or feet. ? New vision problems (such as dimness, blurring, or seeing spots). ? A severe headache. ? You have any vaginal bleeding. ? You have belly pain or cramping. ? You have a fever. ? You have had regular contractions (with or without pain) for an hour. This means that you have8 or more within 1 hour or 4 or more in 20 minutes after you change your position and drink fluids. ? You have a sudden release of fluid from your vagina. ? You have low back pain or pelvic pressure that does not go away. ? You notice that your baby has stopped moving or is moving much less than normal. Watch closely for changes in your health, and be sure to contact your doctor if you have any problems. Where can you learn more? 1. Go to https://www.[employer]/SnackFeedrary. 2. Enter W539 in the search box. Current as of: August 30, 2020?Content Version: 12.8 ?? [employer]. Care instructions adapted under license by your healthcare professional. If you have questions abouta medical condition or this instruction, always ask your healthcare professional. [employer] disclaims any warranty or liability for your use of this information. Pain Relief During Labor: Care Instructions Overview You can choose from a few types of pain relief for childbirth. These include: ?? Medicine. Your doctor may offer different types of pain medicine while you are in labor. ?? Comfort measures. This can include things like breathing techniques and massage. You also can use a combination of these choices. You can write down your choices for pain relief in a plan. A plan is a list of what you want during labor. Your personal needs are important when you make this choice. The right choice is the one that feels right to you. Every labor is different. Some women go into labor planning to use comfort measures only and later find that they need pain medicine. Plan for what you want. But be awarethat you may change your mind during labor. Follow-up care is a norman part of your treatment and safety. Be sure to make and go to all appointments, and call your doctor if you are having problems. It's also a good idea to know your test results and keep a list of the medicines you take. What medicines can you use for pain relief? If you decide to take medicine to help your pain during labor, here are some medicines that may be used. Local anesthesia. You get a shot of medicine to numb the area and relieve pain around the vaginal opening. Regional anesthesia. A doctor injects medicine into a space around the spinal cord. This is called an epidural. It's usedduring labor to numb your lower body. A spinal block is an injection of pain medicine into the spinal fluid. It quickly and fully numbs the pelvic area. In some cases, a doctor combines a spinal block with an epidural. Opioids. These are pain relievers given through a vein or as a shot in the muscle. They can help ease anxietyand pain. But they don't stop pain completely. Nitrous oxide. You can give yourself nitrous oxide through a mask when you need pain relief. You can move around and decide when to use it. What comfort measures can you use for pain relief? ?? Breathing techniques: Breathing in a rhythm can distract you from pain. Childbirth classes can teach you how to do focused breathing. ?? Distraction: You can walk, play cards, listen to music, watch TV, take a shower, or read. These can help take your mind off your contractions. ?? Massage: Your partner can massage your shoulders and lower back during contractions. Strongmassage of the back muscles during contractions may reduce back labor pain. ?? Imagery: You can imagine a peaceful place. For instance, you can think of contractions as waves rolling over you. ?? Laboring in water: Soaking in warm water may help with the pain and stress of labor. ?? Acupuncture: Acupuncture treatment during labor may help you manage the pain. When should you call for help? Watch closely for changes in your health, and be sure to contact your doctor if: ? You want to learn more about pain relief. Where can you learn more? 1. Go to https://www.[employer]healthlibrary. 2. Enter J372 in the search box. Current as of: August 30, 2020?Content Version: 12.8 ?? 3841-8061 [employer]. Care instructions adapted under license by your healthcare professional. If you have questions abouta medical condition or this instruction, always ask your healthcare professional. [employer] disclaims any warranty or liability for your use of this information. Learning About an Epidural for Childbirth What is an epidural for childbirth? An epidural for childbirth, called an epidural for short, is a tiny tube that puts pain medicine directly into the area in your back around your spinal cord. This area is called the epidural space. An epidural can be used during childbirth to partly or fully numb the lower body. The amount of medicine you get will affect how numb you are. For labor and vaginal , a low dose of medicine is often used to decrease pain. But it often will allow enough feeling and muscle strength so that you can push during contractions. For a (), a higher dose can be used to help block all feeling. The epidural allows you to be awake for the . You probably won't be able to walk while you have an epidural. For some women, the medicine may slow down labor. For others, it has no effect on the length of labor. In some cases, it may make labor go faster. It often takes about 10 minutes for the pain medicine to start to work. It may take 20 to 30 minutesto get the full effect. The medicine is not likely to affect your baby. How is an epidural for childbirth done? You will sit with your back curved out. Or you may lie on your side with your knees pulled toward your belly. The doctor or nurse will ask you to be as still as you can. You will get a shot of numbing medicine in the skin on your back. Then the doctor or nurse will put a needle through the numbed skininto your epidural space in your back. The catheter, which is a tiny tube about the size of a pencillead, is inserted through the needle. The doctor or nurse will take out the needle. But the catheterwill stay in your back to supply the medicine. After the catheter is in place, the doctor or nurse will tape it to your back. Your doctor or nurse probably will take out the epidural soon after your baby is born. What can you expect after an epidural for childbirth? The epidural catheter may be removed right after delivery. The numbness and muscle weakness in your legs will probably wear off within 2 hours after the epidural medicine is stopped. You may find that it's hard to urinate until all the medicine has worn off. Your back may be sore. You may have a smallbruise at the catheter site. This usually gets better in 1 or 2 days. In rare cases, an epidural maycause a headache that gets worse when you sit or stand. Tell your doctor if you get a headache afteryour epidural. Your doctor can treat it. Follow-up care is a norman part of your treatment and safety. Be sure to make and go to all appointments, and call your doctor if you are having problems. It's also a good idea to know your test results and keep a list of the medicines you take. Where can you learn more? 1. Go to https://www.[employer]/SnackFeedrary. 2. Enter C529 in the search box. Current as of: August 30, 2020?Content Version: 12.8 ?? [employer]. Care instructions adapted under license by your healthcare professional. If you have questions abouta medical condition or this instruction, always ask your healthcare professional. [employer] disclaims any warranty or liability for your use of this information. Carpal Tunnel Syndrome: Exercises Introduction Here are some examples of exercises for you to try. The exercises may be suggested for a condition or for rehabilitation. Start each exercise slowly. Ease off the exercises if you start to have pain. You will be told when to start these exercises and which ones will work best for you. Warm-up stretches When you no longer have pain or numbness, you can do exercises to help prevent carpal tunnel syndrome from coming back. Do not do any stretch or movement that is uncomfortable or painful. 1. Rotate your wrist up, down, and from side to side. Repeat 4 times. 2. Stretch your fingers far apart. Relax them, and then stretch them again. Repeat 4 times. 3. Stretch your thumb by pulling it back gently, holding it, and then releasing it. Repeat 4 times. How to do the exercises Prayer stretch 1. Start with your palms together in front of your chest just below your chin. 2. Slowly lower your hands toward your waistline, keeping your hands close to your stomach and your palms together until you feel a mild to moderate stretch under your forearms. 3. Hold for at least 15 to 30 seconds. Repeat 2 to 4 times. Wrist flexor stretch 1. Extend your arm in front of you with your palm up. 2. Bend your wrist, pointing your hand toward the floor. 3. With your other hand, gently bend your wrist farther until you feel a mild to moderate stretch inyour forearm. 4. Hold for at least 15 to 30 seconds. Repeat 2 to 4 times. Wrist extensor stretch 1. Repeat steps 1 through 4 of the stretch above, but begin with your extended hand palm down. Follow-up care is a norman part of your treatment and safety. Be sure to make and go to all appointments, and call your doctor if you are having problems. It's also a good idea to know your test results and keep a list of the medicines you take. Where can you learn more? 1. Go to https://www.[employer]/SnackFeedraAlterPoint. 2. Enter U908 in the search box. Current as of: October 08, 2020?Content Version: 12.8 ?? [employer]. Care instructions adapted under license by your healthcare professional. If you have questions abouta medical condition or this instruction, always ask your healthcare professional. [employer] disclaims any warranty or liability for your use of this information. documented in this encounter Progress Notes Adriana Neely MD - 03/21/2021 3:00 PM CDT [facility] ?? CC:??Follow-up care ?? S:??Yancy Watts??is feeling well today. ? Concerns today:?? - Right wrist hurts, right ankle hurts - Last week, had some spotting vision - Rash is almost all the way gone ?? No constipation, diarrhea. She denies loss of fluid or vaginal bleeding. Reports good movement. She has been having no regular contractions.Persistent Bret-Bergeron, is having some stronger ones at night, but not painful. ?? complications: -??Late ZOE at 19 weeks - Vaginismus, saw pelvic floor PT - COVID 19 in 1st trimester ?? O:?? Vitals: 03/21/21 1457 BP: 115/63 Pulse: (!) 104 ?? Constitutional: Well appearing, non-toxic female Psych: A&O x3 ?? See OB flowsheet ?? A/P:??25 y.o.?? at??36w4d ??by LMP c/w 11w1d US??presenting for follow-up care. ?? Care: -OB labs reviewed:??O??positive, Rubella immune, HIV neg, Heb B nonreactive, Heb B immune, RPR negative -Genetics:??Declined?? -Anatomy ultrasound:??L2 with normal anatomy, posterior placenta, Girl!?? - Rh positive, Rhogam not indicated - GCT 84, Hgb 12.3 - S/p flu, Tdap??02/07/21 - GBS today - Feed:??Breast with pumping, has breast pump - Continue PNV - Contraception:??Condoms ?? COVID in early : -??Growth US 02/21 EFW 2062g, 48%, MAURICE 11 - Discussed data on Covid vaccine and safety in women that have already received it. Declines at this time. PUPPS: - Kenalog, 0.1% ointment PRN - Rash notable improved on exam today S>D: - If persistent at next visit, would order f/u growth US ?? Follow-up in clinic in??1 week, labor precautions reviewed Adriana Neely MD P: [phone] 03/21/2021 3:04 PM Dictation Disclaimer: Some notes are completed with voice-recognition dictation software. Typographical errors may result . Please contact me via [employer] staff message if you note any errors requiring clarification. documented in this encounter Plan of Treatment Upcoming Encounters Date Type Specialty Care Team Description 12/02/2022 Appointment Obstetrics [place] [address] [facility] [address] [place], [place] [address] (Wo rk) documented as of this encounter Procedures Procedure Name Priority Date/Time Associated Diagnosis Comme nts GROUP B STREP SCREEN Routine 03/21/2021 3:43 PM Encounter for Results for this (OB PTS) CDT supervision of procedure are in normal first the results in second section. trimester OB CLINIC ULTRASOUND Routine 03/21/2021 Encounter for Result s for this LIMITED supervision of procedure are in normal first the results in second section. trimester documented in this encounter Results Strep Screen Culture (Not Throat) (OB pts) [CSSO] (03/21/2021 3:43 PM CDT) [facility] Method Time Signature Group B Strep No Group B 03/24/2021 [facility] Screen Streptococcus 7:53 AM CDT HOSPITAL Isolated Specimen Anatomical Collection Method Collection Time Receive d Time (Source) Location / / Volume Laterality Swab (Source PERINEAL SWAB / Non-blood 03/21/2021 3:43 PM 2020 3:46 Required) Unknown Collection / CDT PM CDT Unknown Adriana Neely MD LAB_1 Performing Organization Address City/State/ZIP Code Phon e Number [address] [address] OB CLINIC ULTRASOUND LIMITED (03/21/2021) Anatomical Region Laterality Modality Other Impressions 03/21/2021 Cephalic presentation. ??Anterior placen ta, grossly normal fluid. ??FHR 143 BPM. Adriana Neely MD PN CLINIC US ORDERABLES documented in this encounter Visit Diagnoses Diagnosis Encounter for supervision of normal firs t in second trimester - Primary Supervision of normal first Vaginismus PUPP (pruritic urticarial papules and pl aques of ) Other specified complication of pregnanc y, unspecified as to episode of care documented in this encounter Care Teams Property Analyst Relationship Specialty Start Date End Date Unassigned, Provider PCP - General 08/26/[address] [place] [id number] documented as of this encounter
--- OUTSIDE RECORDS SUMMARY | 2022-10-10 23:56 | XMS_ITS | Encounter Summary ---
:1995 Author Organization [employer] Address [address] [place] [address] Care Team Providers Name Role Phone Unassigned, Provider Primary Care Provider Unavailable Reason for Visit Procedure/Equipment (Routine) - Incomplete Specialty Diagnoses / Procedures Referred By Contact Refer red To Contact Diagnoses Encounter for supervision of normal first in second trimester Ultrasound scan abnormal Alexa Macario APRN, CNP Procedures MFM US Level 2, Echo MFM US Level [id number] [place] [address] Referral ID Status Reason Start Date Expiration Date Visits V isits Requested Authorized [id number] Incomplete 11/26/2020 02/25/2022 10 10 Encounter Details Date Type Department Care Team Description 12/11/2020 Ancillary [place] Maternal Alexa Macario Enco unter for supervision of normal first in second trimester; Procedure Medicine PHARMACEUTICAL OPERATOR, CONSTANCE Ultrasound scan abnormal [id number] [address] [facility], [address] [place] [phone] Social History Tobacco Use Types Packs/Day Years Used Date Smoking Tobacco: Never Smokeless Tobacco: Never Alcohol Use Standard Drinks/Week Comments Not Currently 0 (1 standard drink = 0.6 oz pure alcoho l) Sex Assigned at Date Recorded Not on file documented as of this encounter Progress Notes Alexa Macario, CONSTANCE AYERS - 12/11/2020 9:45 AM CST Level 2 ultrasound noted. MS-MUSIC PROMOTER VERY CLERK documented in this encounter Plan of Treatment Upcoming Encounters Date Type Specialty Care Team Description 12/02/2022 Appointment Obstetrics & [place] [id number] [address] (Wo rk) documented as of this encounter Procedures Procedure Name Priority Date/Time Associated Diagnosis Comme nts [facility] US LEVEL 2, Routine 12/11/2020 10:22 AM Encounter for Resu lts for this ECHO DELIVERY CLERK supervision of procedure are in normal first the results in second section. trimester Ultrasound scan abnormal documented in this encounter Results [facility] US Level 2, Echo (12/11/2020 10:22 AM DELIVERY CLERK) P athologist Signature Cervical Length 3.65 cm EXTERNAL RESULTS Anatomical Region Laterality Modality Pelvis Ultrasound Study GA Study Date Study BRIANNE Working BRIANNE (Source) W eight (Method) 22w3d 12/11/2020 04/13/2021 04/14/2021 (Last Menstrual 5 56 g (Hadlock 1984 (BPD, Period) HC, AC, FL) )57 5 g (Hadlock 1984 ( AC, FL) )567 g (Hadlock 1984 (BPD, AC, FL) )551 g (Hadlock 1984 (HC, AC, F L) )634 g (Hadlock 1983 ( AC) )553 g (Hadlock 1983 ( HC, AC) )571 g ([place] 1981 (BPD, AC) ) Result Name Value Comments GA by US Calc 157 days 157 BPD 5.56 cm 161 HC 20.02 cm 155 AC 18.62 cm 164 FL 3.96 cm 159 HL 3.78 cm FL/BPD 71.22 % FL/AC 21.27 % HC/AC 1.08 CI 79.54 % MAURICE Q1 AMURICE Q2 MAURICE Q3 MAURICE Q4 MAURICE Lateral Ventricle CER 2.35 cm Foot 4.05 cm 160 Max Vertical Pocket FHR 151 bpm UAR - PSV UAR - S/D Ratio UAR - RI UAR - PI MCA - PSV MCA - S/D Ratio MCA - PI Cisterna Magna 0.5 cm NF 0.36 cm Specimen (Source) Anatomical Location Collection Method / Collectio n Time Received Time / Laterality Volume Impressions 12/11/2020 1:00 PM DELIVERY CLERK S: 1) Intrauterine at 22w2d gesta tional age 2) None of the anomalies commonly detect ed by ultrasound were evident in the detailed anatomic survey descr ibed above. 3) No markers for aneuploidy seen. 4) biometry is consistent with ges tational age. ?? 5) The amniotic fluid volume appeared no rmal. 6) Normal echocardiogram. ??No VSD appreciated. ?? 7) Normal cervical length 8) No evidence of placenta previa RECOMMENDATIONS: -Consider growth ultrasound at 32 weeks due to +Covid this . ?? This can be scheduled in Radiology. -No follow up required with MFM. Narrative 12/11/2020 1:00 PM DELIVERY CLERK Patient Name: Yancy Watts ??Attending: Erica Moraes MD Patient ??Boring Machine Operator Double End: Bethany Hwang RDMS, DOB, Age: 2 1995, 25 y.o. ??GA Prior to Exam: 22w2d LMP: Patient's last menstrual period was 07/08/2020 (exact date). ??GA by Today's US: 22w3d Pregnancies: ??GA BRIANNE: 22w2d Last Menstrual Period Pre- BMI: ?BRIANNE: 04/14/2021 Hx/Indications: L1 - ?VSD +Covid in 1st Trimester No screening/AFP Evaluation Gestation Type arias Cardiac Activity present Motion normal Presentation cephalic Amniotic Fluid normal Placenta Location posterior Placenta Appearance appears normal Placenta Cord Insertion normal Measurement Value Rank GA BPD 5.56 cm 72% 23w0d HC 20.02 cm 33% 22w1d AC 18.62 cm 77% 23w3d FL 3.96 cm 56% 22w5d HL 3.78 cm 50 - 95% ?? FL/BPD 71.22 % 71 - 87% ?? FL/AC 21.27 % 20 - 24% ?? HC/AC 1.08 5 - 50% ?? CI 79.54 % 70 - 86% ?? CER 2.35 cm 50 - 90% ?? Foot 4.05 cm ??22w6d FHR 151 bpm ?? Cisterna Magna 0.5 cm ?? NF 0.36 cm ?? Weight: 556 g (1 lb 3.6 oz), 78% Head ??Abdomen Cranium appears normal ??Diaphragm appea [...] View appears normal Orbits appears normal ??Cardiac [place] joana ears normal Lenses appears normal ??Cardiac [...] a ppears normal Pleural Effusion absent ??Short [place] of Ventricles appears normal Extremities ??Short [place] of Great Vessel s appears normal Right [...] Genitalia ?? Genitalia appears normal ?? Sex female ?? Skin ?Edema absent Maternal Evaluation Cervix Normal Uterus Normal Cervical Length 3.65 cm ?? Approach Transabdominal Right Ovary Norm al With Fundal Pressure (cm) N/A ?? Left Ov jerry Normal Funneling Absent Right Adnexa Normal Cul-de-sac No fluid seen Left Adnexa Nor mal Impression Alexa Macario PHARMACEUTICAL OPERATOR, MUSIC PROMOTER RAD RAMESH US documented in this encounter Visit Diagnoses Diagnosis Encounter for supervision of normal firs t in second trimester Supervision of normal first Ultrasound scan abnormal Other nonspecific (abnormal) findings on radiological and other examinations of body structure documented in this encounter Care Teams Management Recruiter Relationship Specialty Start Date End Date Unassigned, Provider PCP - General 08/26/[address] [place] [id number] documented as of this encounter
--- OUTSIDE RECORDS SUMMARY | 2022-10-10 23:56 | XMS_ITS | Encounter Summary ---
:1995 Author Organization [employer] Address [address] [place] [address] Care Team Providers Name Role Phone Unassigned, Provider Primary Care Provider Unavailable Reason for Referral Procedure/Equipment (Routine) - Incomplete Specialty Diagnoses / Procedures Referred By Contact Refer red To Contact Diagnoses Encounter for supervision of normal first in second trimester Ultrasound scan abnormal Alexa Macario APRN, CNP Procedures MFM US Level 2, Echo MFM US Level 2 [address] [place] [address] Referral ID Status Reason Start Date Expiration Date Visits V isits Requested Authorized [id number] Incomplete 11/26/2020 02/25/2022 10 10 PEDDLER Reason for Visit Reason Comments Ultrasound Results Encounter Details Date Type Department Care Team Description 11/26/2020 Telephone [facility] Alexa Macario, [facility] sound Results Services-SCREWMAKER AUTOMATIC CONSTANCE AYERS [address], [address] [facility] [address] [place] [address] [place], [place] [phone] (Wo rk) [phone] Social History Tobacco Use Types Packs/Day Years Used Date Smoking Tobacco: Never Smokeless Tobacco: Never Alcohol Use Standard Drinks/Week Comments Not Currently 0 (1 standard drink = 0.6 oz pure alcoho l) Sex Assigned at Date Recorded Not on file documented as of this encounter Nursing Notes Alexa Macario APRN, CNP - 11/26/2020 3:24 PM CST 3:24 pm spoke with pt. Relayed 20wk U/S findings. L2 U/S ordered. MS-CONSTANCE PEDDLER Beata Church RN - 11/26/2020 2:40 PM CST Patient returning call. Diamond Saw Operator contacted provider, she will call patient back around 3:10. This was communicated to patient. PEDDLER Alexa Macario APRN, CNP - 11/26/2020 11:26 AM CST 1125 a.m. left brief message for patient stating that we will discuss 20 week ultrasound. Ventral septal defect was noted ordered level 2 ultrasound. Otherwise, ultrasound findings normal. MS-CONSTANCE PEDDLER documented in this encounter Plan of Treatment Upcoming Encounters Date Type Specialty Care Team Description 12/02/2022 Appointment Obstetrics & Gynecology Florinda, [place] [address] [address] (Wo rk) documented as of this encounter Results MFM US Level 2, Echo (12/11/2020 10:22 AM FISH PEDDLER) P athologist Signature Cervical Length 3.65 cm EXTERNAL RESULTS Anatomical Region Laterality Modality Pelvis Ultrasound Study GA Study Date Study BRIANNE Working BRIANNE (Source) W eight (Method) 22w3d 12/11/2020 04/13/2021 04/14/2021 (Last Menstrual 5 56 g (Hadlock 1985 (BPD, Period) HC, AC, FL) )57 5 [...] HC/AC 1.08 CI 79.54 % MAURICE Q1 MAURICE Q2 MAURICE Q3 [...] / Laterality Volume Impressions 12/11/2020 1:00 PM FISH PEDDLER S: 1) Intrauterine at 22w2d gesta tional [...] required with MFM. Narrative 12/11/2020 1:00 PM FISH PEDDLER Patient Name: Yancy Watts ??Attending: Erica Moraes MD Patient ??Batterboard Setter: Bethayn Hwang RDMS , Age: 2 1995, 25 y.o. ??GA Prior [...] View appears normal Orbits appears normal ??Cardiac [place] joana ears normal Lenses appears normal ??Cardiac [...] a ppears normal Pleural Effusion absent ??Short [place] of Ventricles appears normal Extremities ??Short [place] of Great Vessel s appears normal Right [...] Left Adnexa Nor mal Impression Alexa Macario DIE SETTER, SUBASSEMBLER RAD RAMESH US documented in this encounter Visit Diagnoses Diagnosis Encounter for supervision of normal firs t in second trimester - Primary Supervision of normal first Ultrasound scan abnormal Other nonspecific (abnormal) findings on radiological and other examinations of body structure Encounter for supervision of normal firs t in second trimester Supervision of normal first Ultrasound scan abnormal Other nonspecific (abnormal) findings on radiological and other examinations of body structure documented in this encounter Care Teams Regional Program Manager Relationship Specialty Start Date End Date Unassigned, Provider PCP - General 08/26/[address] [place] [id number] documented as of this encounter
--- OUTSIDE RECORDS SUMMARY | 2022-10-10 23:56 | XMS_ITS | Encounter Summary ---
:1995 Author Organization [employer] Address [address], [place] [address] Care Team Providers Name Role Phone Unassigned, Provider Primary Care Provider Unavailable Reason for Visit Reason Comments Pelvic Health Therapies (Routine) - Closed Specialty Diagnoses / Procedures Referred By Contact Refer red To Contact Diagnoses Vaginismus Alexa Macario, ELEMENTARY CLASSROOM TEACHER, ELECTROSTATIC PAINTER [address] [place] [address] Referral ID Status Reason Start Date Expiration Date Visits Requ ested Visits Authorized [id number] Closed 11/20/2020 01/19/2021 1 1 Encounter Details Date Type Department Care Team Description 11/29/2020 Therapy [facility] Yvette Wesley, PT Vaginismus (Primary Dx) - Physical Therapy [address] [address] [place] [address] [place] [address] [phone] Social History Tobacco Use Types Packs/Day Years Used Date Smoking Tobacco: Never Smokeless Tobacco: Never Alcohol Use Standard Drinks/Week Comments Not Currently 0 (1 standard drink = 0.6 oz pure alcoho l) Sex Assigned at Date Recorded Not on file documented as of this encounter Progress Notes Ellyn Wesley, PT - 11/29/2020 7:00 AM CST [facility] Physical Therapy - Pelvic Floor Evaluation/Plan of Care Initial Certification Period: 11/29/2020 to 02/27/21 Referring Provider: Alexa Macario Visit Diagnosis: 1. Vaginismus Precautions: with EDC 04/14/20 Orders: Evaluate & treat Onset/Referral Date: 11/20/20 SUBJECTIVE Reason for Visit: Patient reports that pelvic exams have always been uncomfortable. She is [id number] weeks and have noticed that intercourse has begun to be uncomfortable. Notes that she has also had occasional urine leakage usually after standing up after urination and has had occasional constipation associated with her . Patient Therapy Goals: Relaxation of the pelvic floor for less discomfort during pelvic exams and initial penetration with intercourse. Past Medical History: Yancy has a past medical history of Pap smear abnormality of cervix (2013), Vaginismus (11/21/2020), and Varicella. Recently Experienced (Red Flags): None Surgeries: Patient has a past surgical history that includes wisdom teeth extraction.. Medications: Patient has a current medication list which includes the following prescription(s): fluocinolone, vitamin-ferrous fumarate-folic acid, and triamcinolone acetonide.. Previous Treatment: Physician exam: See EMR for physician findings Benefited from previous treatment: not applicable Urinary Function: Urinary leakage: The amount of urinary leakage is few drops and presents 1-2 times per day, requiring no pad use. Leakage provoked with after standing post urination Urinary frequency: Voiding during waking hours is every 1-1.5 hour/s and 0-1 time per night, and does feel she empties bladder fully. Once urge to void presents, able to delay urination 5-10 minutes. Patient reports there is not pain with urination and there is not blood in urine. Pelvic pressure/heaviness or prolapse: None noted Ranking of severity of urinary problem: 2/10 (0-10 scale with 10 being worst problem) Bowel Function: No problems related to bowel function noted. Patient reporting no diarrhea, constipation and indicates no straining/splinting with bowel function. Upon further questioning, patient doesreport occasional constipation during her . Abdominal/Pelvic Pain History: Patient reports that pelvic exams have always been uncomfortable. Notes that with , she hasalso noticed some discomfort with initial penetration occasionally with intercourse. Notes that she has never been comfortable wearing tight jeans. Obstetric/Gynecologic History: Yancy is sexually active. She is 20 weeks with her firstpregnancy. 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 Verbal and written consent for physical therapy examination was obtained. Observation: Mood, orientation and behavior are appropriate Mobility/Transfer: patient transfers without limitation Musculoskeletal Exam External Pelvic Floor Exam: Perineal Visual Exam: Redness observed at the introitus throughout. Note that patient has lesions onher legs - when questioned, patient reports that she has issues with psoriasis and eczema that she sees a sustainable agriculture faculty for. Vaginal introitus is normal. Perineal body is normal. Cotton Swab Test: 1 o'clock 0/10 3 o'clock 0/10 5 o'clock 0/10 6 o'clock 3/10 7 o'clock 3/10 9 o'clock 3/10 11 o'clock 1/10 Voluntary Contraction Response: Present, Associated with accessory overuse of gluteals Involuntary Contraction Response to Cough: Present Involuntary Relaxation/Vasalva Response: Present Palpation/Tone: Hypertonic Internal Pelvic Floor Exam: Deferred due to PT - Pelvic Health FEMALE - [employer] [place] [employer] Chronic Prostatitis Symptoms Index (NIH- CPSI) (0-44, 0 being best): 17 Clinical Examination: Moderate Complexity: Addressed 3 elements from body structures and functions (see above), and/or functional limitations as noted below. Today's Intervention/Charges: Physical Therapy Evaluation was completed and the patient was educatedon the condition, planned therapy intervention and expectations from treatment. Therapeutic exercise x 10 minutes: Patient instructed in and performed sub max contraction of the pelvic floor followed by relaxation with the focus upon relaxation. Also instructed in and performed the following stretches. Access Code: [email or web address] URL: [email or web address] Date: 11/29/2020 Prepared by: Ellyn Wesley Exercises Supine Hip Adductor Stretch - 5 reps - 10 seconds hold - 2x daily Seated Figure 4 Piriformis Stretch - 5 reps - 10 seconds hold - 2x daily Child's Pose Stretch - 5 reps - 10 seconds hold - 2x daily Self care/home management x 15 minutes: Patient was educated in bladder/pelvic floor muscle anatomy and musculoskeletal sources for pelvic and abdominal pain. Trained in the effects of increased muscletone, trigger points and the impact of stress as it relates to the pain cycle and the sympathetic nervous system. In regards to constipation, discussed sitting fully on the toilet for bowel movements with knees higher than the hips. Leaning forward can also be helpful. Make sure that you are not bearing down - allow the belly to bulge forward. Think of relaxing the pelvic floor to allow stool to pass. Instructed in common vaginal dryness with and need for use of additional non-toxic lubrica nt with intercourse. Provided list of non-toxic products and possible purchase locations. Strongly encouraged patient to mention pain with initial penetration with intercourse to sustainable agriculture faculty as well at next visit. Timed Code Treatment Minutes: 25 Total Treatment Minutes: 50 ASSESSMENT Therapist Impression/Summary: Patient's primary concern is pain associated with intercourse and pelvic exams. She does have some dermatological issues which may be contributing to pain with initial penetration. We will focus upon pelvic floor relaxation in regards to the muscular component. She also has some frequency issues, mild stress incontinence and occasional constipation. Patient will benefit from skilled Physical Therapy to meet the goals listed below. PT Clinical Presentation: Moderate Complexity: Evolving Clinical Presentation with changing clinical characteristics Clinical Decision Making: Moderate Complexity Recommendations/Equipments: none Significant Impairments: Muscle hypertonicity, Muscle weakness, Pain Functional Limitations: Difficulty with pursuing social activities due to need for restroom access, work activity due to need for restroom access, pain limiting pelvic exams, pain if pursuing intercourse Goals/Functional Outcomes: Verbalize understanding of bladder/bowel fitness principles to foster reduction in symptoms in 12 weeks in order to improve work situations, improve social situations Verbalize understanding of urge management strategies related to patient complaint to foster management of urgency symptoms in 12 weeks in order to improve work situations, improve social situations Report reduction in urinary leakage from 1-2 times daily to 1-2 times weekly in 12 weeks in order toimprove work situations, improve social situations Demonstrate body mechanics of defecation per therapist observation in 12 weeks in order to foster reduced strain at pelvic floor Report ability to return to intercourse at desired frequency in 3 months Potential Barriers to Goal Achievement or Learning: none Prognosis: Good PLAN Planned Intervention/Education: ADL/Self management, Neuromuscular re-education, Therapeutic Exercise Frequency: 3-6 treatments in the next 12 weeks Duration: 90 days Discharge Plan: Patient will be discharged from therapy when goals are achieved or patient plateaus in progress. Informed Consent: The patient was educated on the condition, planned therapy intervention and expectation from treatment. Goals were a collaborative effort of the therapist and patient caregiver. Risks, benefits and alternatives to treatment have been explained. Patient and/or family in agreement with the care plan. Plan for Next Treatment: Perform SEMG exam. Instruct in controlling urge techniques. The clerical receptionist is completed by the therapist and the referring clinician's electronic signature certifies medical necessity for the plan above. NSION ASSOCIATE documented in this encounter Plan of Treatment Upcoming Encounters Date Type Specialty Care Team Description 12/02/2022 Appointment Obstetrics & [place] [id number] [address] (Wo rk) Scheduled Referrals Name Type Priority Associated Diagnoses Order S chedule Physical Therapy Referral Routine Vaginismus Ordered: documented as of this encounter Visit Diagnoses Diagnosis Vaginismus - Primary documented in this encounter Care Teams Swimming Pool Maintenance Supervisor Relationship Specialty Start Date End Date Unassigned, Provider PCP - General 08/26/00 [address] [place] [address] documented as of this encounter
--- OUTSIDE RECORDS SUMMARY | 2022-10-10 23:56 | XMS_ITS | Encounter Summary ---
:1995 Author Organization [employer] Address [address] [place] [address] Care Team Providers Name Role Phone Unassigned, Provider Primary Care Provider Unavailable Reason for Visit Reason Comments Pelvic Health Encounter Details Date Type Department Care Team Description 01/10/2021 Therapy [facility] Yvette Wesley, PT Vaginismus (Primary Dx) - Physical Therapy [address] [address] [place] [address] [place], [place] [id number] [phone] Social History Tobacco Use Types Packs/Day Years Used Date Smoking Tobacco: Never Smokeless Tobacco: Never Alcohol Use Standard Drinks/Week Comments Not Currently 0 (1 standard drink = 0.6 oz pure alcoho l) Sex Assigned at Date Recorded Not on file documented as of this encounter Progress Notes Ellyn Wesley, PT - 01/10/2021 2:30 PM CST [facility] Physical Therapy Progress Note Visit Number: 3 Initial Certification Period: 11/29/2020 to 02/27/21 Referring Provider: Alexa Macario Visit Diagnosis: 1. Vaginismus Precautions: with EDC 04/14/20 SUBJECTIVE: Patient reports that she is doing well. She is 26 weeks and is able to engage in sexual activity without difficulty. Urgency and frequency issues have improved as well. OBJECTIVE Current Objective Findings: SEMG reveals a resting tone between 3-5 microvolts when lying on her right side with a pillow between her knees. With pelvic floor contraction, she displays good recruitment but unable to sustain a contraction for more than one second and relaxation remains a little delayed. Resting tone gradually decreased to 3 microvolts at treatment end. Treatment/Education Today: Therapeutic exercise x 15 minutes: Reviewed performance of hip adductor stretch, sitting figure 4 stretch and child's pose. Instructed to gradually increase her hold time with her pelvic floor contraction to a 5 second contraction followed by 5 second relaxation with focus upon relaxation. Also instructed in and performed hip adductor isometrics, transverse abdominals and clam shell exercise. She is to always follow strengthening exercises with stretching Neuromuscular re-education x 10 minutes: Performed SEMG exam as noted above. Practiced diaphragmaticbreathing and body scanning Self care/home management x 5 minutes: Instructed in common vaginal dryness with lactating mothers and need for use of additional non-toxic lubricant with intercourse. Provided list of non-toxic products and possible purchase locations. Timed Code Treatment Minutes: 30 Total Treatment Minutes: 30 Current Home Exercise Program List: Access Code: [email or web address] URL: [email or web address] Date: 01/10/2021 Prepared by: Ellyn Wesley Exercises Supine Hip Adductor Stretch - 5 reps - 10 seconds hold - 2x daily Seated Figure 4 Piriformis Stretch - 5 reps - 10 seconds hold - 2x daily Child's Pose Stretch - 5 reps - 10 seconds hold - 2x daily Seated Transversus Abdominis Bracing - 10 reps - 5 seconds hold - 1x daily - 7x weekly Supine Hip Adduction Isometric with Ball - 10 reps - 5 seconds hold - 1x daily - 7x weekly Clam - 10 reps - 1x daily - 7x weekly ASSESSMENT/PROGRESS TOWARD GOALS: Patient displays mild high tone of the pelvic floor but improved symptoms. She does have a weak pelvic floor so added strengthening exercises. Patient will benefit from skilled Physical Therapy to meetthe goals listed below. Functional Goals/Outcomes: Verbalize understanding of bladder/bowel fitness principles to foster reduction in symptoms in 12 weeks in order to improve work situations, improve social situations MET Verbalize understanding of urge management strategies related to patient complaint to foster management of urgency symptoms in 12 weeks in order to improve work situations, improve social situations MET Report reduction in urinary leakage from 1-2 times daily to 1-2 times weekly in 12 weeks in order toimprove work situations, improve social situations MET Demonstrate body mechanics of defecation per therapist observation in 12 weeks in order to foster reduced strain at pelvic floor MET Report ability to return to intercourse at desired frequency in 3 months MET PLAN: Keep chart open until end of March. Patient instructed to schedule an appointment if concerns occur prior to childbirth. ADVISOR documented in this encounter Plan of Treatment Upcoming Encounters Date Type Specialty Care Team Description 12/02/2022 Appointment Obstetrics & [place] [address] [address] (Wo rk) documented as of this encounter Visit Diagnoses Diagnosis Vaginismus - Primary documented in this encounter Care Teams Hydro Mechanic Relationship Specialty Start Date End Date Unassigned, Provider PCP - General 08/26/[address] [place] [address] documented as of this encounter
--- OUTSIDE RECORDS SUMMARY | 2022-10-10 23:56 | XMS_ITS | Encounter Summary ---
:1995 Author Organization [employer] Address [address] [place] [address] Care Team Providers Name Role Phone Unassigned, Provider Primary Care Provider Unavailable Reason for Visit Reason Comments Routine Visit 32w 4d Encounter Details Date Type Department Care Team Description 02/21/2021 Routine [facility] Jeni Lopez MD Routine Services-FRAMING CONSULTANT [address] [facility] Visit (32w 4d) [address], [address] [place] [phone] Social History Tobacco Use Types Packs/Day Years Used Date Smoking Tobacco: Never Smokeless Tobacco: Never Alcohol Use Standard Drinks/Week Comments Not Currently 0 (1 standard drink = 0.6 oz pure alcoho l) Sex Assigned at Date Recorded Not on file documented as of this encounter Last Filed Vital Signs Vital Sign Reading Time Taken Comments Blood Pressure 119/62 02/21/2021 1:18 PM CDT Pulse 85 02/21/2021 1:18 PM CDT Temperature - - Respiratory Rate - - Oxygen Saturation - - Inhaled Oxygen Concentration - - Weight 82.6 kg (182 lb) 02/21/2021 1:18 PM CDT Height - - Body Mass Index 33.29 11/20/2020 8:10 AM BIOCHEMICAL DEVELOPMENT ENGINEER documented in this encounter Progress Notes Jeni Lopez MD - 02/21/2021 1:30 PM CDT [facility] ?? CC: Follow-up care ?? S: Yancy Watts is feeling well today. Concerns today: - ? About Covid vaccine No constipation, diarrhea. She denies loss of fluid or vaginal bleeding. Reports good movement. She has been having no regular contractions. Some Bret-Bergeron. ?? complications: - Late ZOE at 19 weeks - Vaginismus, saw pelvic floor PT - COVID 19 in 1st trimester ?? O: Vitals: 02/21/21 1318 BP: 119/62 Pulse: 85 Gen: alert, oriented, NAD See OB flowsheet ?? A/P: 25 y.o. at 32w4d by LMP c/w 11w1d US presenting for follow-up care. Care: -OB labs reviewed: O positive, Rubella immune, HIV neg, Heb B nonreactive, Heb B immune, RPR negative -Genetics: Declined -Anatomy ultrasound: L2 with normal anatomy, posterior placenta, Girl! - Rh positive, Rhogam not indicated - GCT 84, Hgb 12.3 - S/p flu, Tdap 02/07/21 - GBS at 36 weeks - Feed: Breast with pumping, has breast pump - Continue PNV - Contraception: Condoms. IPI of 18 months reviewed. COVID in early : - Growth US 02/21 EFW 2062g, 48%, MAURICE 11 - Discussed data on Covid vaccine and safety in women that have already received it. Yancy does work in person with colleagues. Follow-up in clinic in 2 weeks, scheduled Jeni Lopez MD documented in this encounter Plan of Treatment Upcoming Encounters Date Type Specialty Care Team Description 12/02/2022 Appointment Obstetrics & Gynecology Florinda, [place] [address] [place] [phone] (Wo rk) documented as of this encounter Visit Diagnoses Diagnosis Encounter for supervision of normal firs t in second trimester - Primary Supervision of normal first Vaginismus COVID-19 affecting in first tr imester documented in this encounter Care Teams Nutritional Services Cook Relationship Specialty Start Date End Date Unassigned, Provider PCP - General 08/26/[address] [place] [address] documented as of this encounter
--- OUTSIDE RECORDS SUMMARY | 2022-10-10 23:56 | XMS_ITS | Encounter Summary ---
:1995 Author Organization [employer] Address [address] [place] [address] Care Team Providers Name Role Phone Unassigned, Provider Primary Care Provider Unavailable Encounter Details Date Type Department Care Team Description 01/10/2021 Notes/Orders [facility] - Ellyn Wesley, PT Physical Therapy [address] [address] [place] [address] [place] [address] [phone] Social History Tobacco Use Types Packs/Day Years Used Date Smoking Tobacco: Never Smokeless Tobacco: Never Alcohol Use Standard Drinks/Week Comments Not Currently 0 (1 standard drink = 0.6 oz pure alcoho l) Sex Assigned at Date Recorded Not on file documented as of this encounter Progress Notes Ellyn Wesley, PT - 01/10/2021 11:59 PM CST [facility] Discharge Summary Outcome measures at discharge: PT - Discharge Total Visits: 3 Reason for discharge: Patient satisfied with progress and elects to discontinue care despite not meeting all therapy goals. Attainment of goals: See above Patient Compliance with Therapy: Patient was compliant with attendance and therapy recommendations. Discharge recommendations: Patient will continue to work independently with home program/self management strategies. Therapist instructed patient to call with questions or concerns. documented in this encounter Plan of Treatment Upcoming Encounters Date Type Specialty Care Team Description 12/02/2022 Appointment Obstetrics & Gynecology [place], [place] [address] [address] [place] [phone] (Wo rk) documented as of this encounter Visit Diagnoses Not on filedocumented in this encounter Care Teams Alodize Machine Operator Relationship Specialty Start Date End Date Unassigned, Provider PCP - General 08/26/00 [address] [place] [address] documented as of this encounter
--- OUTSIDE RECORDS SUMMARY | 2022-10-10 23:56 | XMS_ITS | Encounter Summary ---
:1995 Author Organization [employer] Address [address] [place] [address] Care Team Providers Name Role Phone Unassigned, Provider Primary Care Provider Unavailable Reason for Visit Reason Comments Routine Visit 38w 4d Encounter Details Date Type Department Care Team Description 04/04/2021 Routine [facility] Adriana Neely Services-DEVULCANIZER HEAD MD Marisela Visit (38w 4d) [address], [address] [phone] Social History Tobacco Use Types Packs/Day Years Used Date Smoking Tobacco: Never Smokeless Tobacco: Never Alcohol Use Standard Drinks/Week Comments Not Currently 0 (1 standard drink = 0.6 oz pure alcoho l) Sex Assigned at Date Recorded Not on file documented as of this encounter Last Filed Vital Signs Vital Sign Reading Time Taken Comments Blood Pressure 120/64 04/04/2021 1:46 PM CDT Pulse 90 04/04/2021 1:46 PM CDT Temperature - - Respiratory Rate - - Oxygen Saturation - - Inhaled Oxygen Concentration - - Weight 87.8 kg (193 lb 9.6 oz) 04/04/2021 1:46 PM CDT Height - - Body Mass Index 35.41 11/20/2020 8:10 AM AUTO PARTS MANAGER documented in this encounter Patient Instructions Patient InstructionsOAdriana Ross MD - 04/04/2021 1:45 PM CDT Images from the original note were not included. Early Stage of Labor at Home: Care [...] you aren't sure, call your doctor or spray blender. As your labor progresses, check in with your doctor or spray blender about when to come back to the [...] your contractions. ?? Ask your partner, labor assistant track coach, or timing inspector for a massage. Shoulder and low back massage during contractions may ease your pain. Strong massage of the back muscles (counterpressure) during contractions may help relieve the pain of back labor. Tell your labor assistant track coach exactly where to push and how hard [...] can you learn more? 1. Go to https://www.[employer].MyEnergy/healthlibrary. 2. Enter W539 in the search box. Current as of: August 30, 2020?Content Version: 12.8 ?? [employer]. Care instructions adapted under license by your healthcare professional. If you have questions abouta medical condition or this instruction, always ask your healthcare professional. [employer] disclaims any warranty or liability for your [...] can you learn more? 1. Go to https://www.[employer].MyEnergy/healthlibrary. 2. Enter J372 in the search box. Current as of: August 30, 2020?Content Version: 12.8 ?? [employer]. Care instructions adapted under license by your healthcare professional. If you have questions abouta medical condition or this instruction, always ask your healthcare professional. [employer] disclaims any warranty or liability for your use of this information. documented in this encounter Progress Notes Adriana Neely MD - 04/04/2021 1:45 PM CDT [facility] Obstetrics & Gyne[facility] Clinic ?? CC:??Follow-up care ?? S:??Yancy M Mac??is feeling well today. ? Concerns today:?? -?Thinks she lost her mucus plug yesterday - a little bleeding - Does have a mild headache today since lunch - no medications ?? Baseline BM with intermittent loose and hard stools. She denies loss of fluid or vaginal bleeding. Reports good movement. She has been having no regular contractions. ?? complications: -??Late ZOE at 19 weeks - Vaginismus, saw pelvic floor PT - COVID 19 in 1st trimester ?? O:?? Vitals: 04/04/21 1346 BP: 120/64 Pulse: 90 Constitutional: ??Well appearing, non-toxic female Psych: A&O x3 ?? See OB flowsheet ?? A/P:??25 y.o.?? at??38w4d by LMP c/w 11w1d US??presenting for follow-up care. ?? Care: -OB labs reviewed:??O??positive, Rubella immune, HIV neg, Heb B nonreactive, Heb B immune, RPR negative -Genetics:??Declined?? -Anatomy ultrasound:??L2 with normal anatomy, posterior placenta, Girl!?? - Rh positive, Rhogam not indicated - GCT 84, Hgb 12.3 - S/p flu, Tdap??02/07/21 - GBS negative - Feed:??Breast with pumping, has breast pump - Continue PNV - Contraception:??Condoms ?? COVID in early : -??Growth US 02/21 EFW 2062g, 48%, MAURICE 11 - Discussed data on Covid vaccine and safety in women that have already received it.?Declines at this time.?? PUPPS: - Kenalog, 0.1% ointment PRN ?? Follow-up in clinic in??1 week, labor precautions reviewed Adriana Neely MD P: [phone] 04/04/2021 1:53 PM Dictation Disclaimer: Some notes are completed with voice-recognition dictation software. Typographical errors may result . Please contact me via [employer] staff message if you note any errors requiring clarification. documented in this encounter Plan of Treatment Upcoming Encounters Date Type Specialty Care Team Description 12/02/2022 Appointment Obstetrics & [place] [address] [phone] (Wo rk) documented as of this encounter Visit Diagnoses Diagnosis Encounter for supervision of normal firs t in second trimester - Primary Supervision of normal first Vaginismus PUPP (pruritic urticarial papules and pl aques of ) Other specified complication of pregnanc y, unspecified as to episode of care documented in this encounter Care Teams Rice Milling Supervisor Relationship Specialty Start Date End Date Unassigned, Provider PCP - General 08/26/[address] [place] [phone] documented as of this encounter
--- OUTSIDE RECORDS SUMMARY | 2022-10-10 23:56 | XMS_ITS | Encounter Summary ---
:1995 Author Organization [employer] Address [address] [place] [address] Care Team Providers Name Role Phone Unassigned, Provider Primary Care Provider Unavailable Encounter Details Date Type Department Care Team Description 11/20/2020 Lab Visit [facility] Screening for diabetes mellitus; [facility] Lab Encounter for supervision of normal first in second trimester; [address] [facility] Encounter for blood typing; [facility] screening for isoi mmunization; [place] [address] Encounter for drug screening [phone] Social History Tobacco Use Types Packs/Day Years Used Date Smoking Tobacco: Never Smokeless Tobacco: Never Alcohol Use Standard Drinks/Week Comments Not Currently 0 (1 standard drink = 0.6 oz pure alcoho l) Sex Assigned at Date Recorded Not on file documented as of this encounter Progress Notes Alexa Macario APRN, CNP - 11/20/2020 9:20 AM CST Hemoglobin A1c 4.9. Blood type antibody screen negative. Lead screen . Collect urine drug screen at next visit. Sent message to [employer] Energy[employer]ILLA SERVER documented in this encounter Plan of Treatment Upcoming Encounters Date Type Specialty Care Team Description 12/02/2022 Appointment Obstetrics & [place] [address] [facility] [address] [place], [place] [address] (Wo rk) documented as of this encounter Procedures Procedure Name Priority Date/Time Associated Diagnosis Comme nts ANTIBODY SCREEN Routine 11/20/2020 9:23 AM screening Results for this TRAY SERVER for isoimmunizat ion procedure are in Encounter for the results supervision of normal sectio n. first in second trimester LEAD, VENOUS Routine 11/20/2020 9:23 AM Encounter for Results for this TRAY SERVER supervision of normal proced ure are in first in the resul ts second trimester section. BLOOD TYPE Routine 11/20/2020 9:23 AM Encounter for blood Re sults for this TRAY SERVER typing procedure are in Encounter for the results supervision of normal sectio n. first in second trimester HGB A1C Routine 11/20/2020 9:23 AM Screening for Results for this TRAY SERVER diabetes mellitu s procedure are in Encounter for the results supervision of normal sectio n. first in second trimester documented in this encounter Results Lead, Venous (11/20/2020 9:23 AM TRAY SERVER) P athologist Signature Lead, Whole <2.0 <=4.9 11/21/2020 [facility] Venous ug/dL 4:58 PM TRAY [facility] LAB[facility] Comment: INTERPRETIVE INFORMATION: Lead, Blood (V [...] interpretive comments include the CDC Response to 2011 Advisory Committee on Childhood Lead Poisoning Prevention R eport and the Recommendations for Medical Management of [...] Test developed and characteristics deter mined by [employer]. See Compliance Statement B : [employer]/CS Performed By: [employer] [address] [place] [address] Admissions Evaluator: Susan Cope MD Specimen Anatomical Collection Method / Collection Time Recei clint Time (Source) Location / Volume Laterality Blood Venipuncture / 11/20/2020 9:23 11/20/2020 9:23 Unknown AM TRAY SERVER AM TRAY SERVER Alexa Watts Renaldo LANGUAGE TEACHER, DIRECTOR OF CARDIOLOGY SERVICE LINE LAB_1 Performing Organization Address City/State/ZIP Code Phon e Number [facility] [address] [place], [place] [id number] Antibody Screen (11/20/2020 9:23 AM TRAY SERVER) [facility] Method Time Signature Antibody Screen Negative 11/20/2020 [facility] Interpretation 1:25 PM TRAY SERVER BLOOD BANK Specimen Anatomical Collection Method / Collection Time Recei clint Time (Source) Location / Volume Laterality Blood Venipuncture / 11/20/2020 9:23 11/20/2020 9:23 Unknown AM TRAY SERVER AM TRAY SERVER Alexa Watts Renaldo AYERS CNP LAB_1 Performing Organization Address [facility] Phon e Number [facility] BLOOD BANK [facility] [place] [address] Blood Group & RH (Blood Type) (11/20/2020 9:23 AM TRAY SERVER) P athologist Signature ABO O 11/20/2020 [facility] 1:25 PM TRAY SERVER BLOOD BANK RH Positive 11/20/2020 [facility] 1:25 PM TRAY SERVER BLOOD BANK Specimen Anatomical Collection Method / Collection Time Recei clint Time (Source) Location / Volume Laterality Blood Venipuncture / 11/20/2020 9:23 11/20/2020 9:23 Unknown AM TRAY SERVER AM TRAY SERVER Alexa Watts Renaldo AYERS CNP LAB_1 Performing Organization Address [facility] Phon e Number [facility] [address] [place] [id number] HGB A1C (11/20/2020 9:23 AM TRAY SERVER) [facility] Method Time Signature Hemoglobin A1C 4.9 <=5.6 % 11/20/2020 [facility] 2:16 PM TRAY SERVER C[facility]AL [facility] Specimen Anatomical Collection Method / Collection Time Recei clint Time (Source) Location / Volume Laterality Blood Venipuncture / 11/20/2020 9:23 11/20/2020 9:23 Unknown AM TRAY SERVER AM TRAY SERVER Alexa Watts Renaldo AYERS CNP LAB_1 Performing Organization Address [facility] Phon e Number [facility] [address] [address] documented in this encounter Visit Diagnoses Diagnosis Screening for diabetes mellitus Encounter for supervision of normal firs t in second trimester Supervision of normal first Encounter for blood typing screening for isoimmunization Encounter for drug screening documented in this encounter Care Teams Apprentice Painter Hand Relationship Specialty Start Date End Date Unassigned, Provider PCP - General 08/26/[address] [place] [phone] documented as of this encounter
--- OUTSIDE RECORDS SUMMARY | 2022-10-10 23:56 | XMS_ITS | Encounter Summary ---
:1995 Author Organization [employer] Address [address] [place] [address] Care Team Providers Name Role Phone Unassigned, Provider Primary Care Provider Unavailable Encounter Details Date Type Department Care Team Description 03/21/2021 Orders Only Initial Department Provider, Neena, [facility] KAREN HARPER MD [place], [place] [address] Interface provider [phone] [place] [address] Social History Tobacco Use Types Packs/Day Years [...] Obstetrics & Gynecology [place] [address] [address] (Wo rk) documented as of this encounter Procedures Procedure Name Priority Date/Time Associated Diagnosis Comme nts ULTRASOUND SC 03/21/2021 Results for th is procedure are in the resu lts section. documented in this encounter Results ULTRASOUND SC (03/21/2021) Anatomical Region Laterality Modality Other Narrative This result has an attachment that is no t available. Interface Provider DUMMY/OTHER/AR documented in this encounter Visit Diagnoses Not on filedocumented in this encounter Care Teams Survey Questionnaire Designer Relationship Specialty Start Date End Date Unassigned, Provider PCP - General 08/26/[address] [place] [address] documented as of this encounter
--- OUTSIDE RECORDS SUMMARY | 2022-10-10 23:56 | XMS_ITS | Encounter Summary ---
:1995 Author Organization Locality Address [address] [place] [address] Care Team Providers Name Role Phone Unassigned, Provider Primary Care Provider Unavailable Reason for Visit Reason Comments Pelvic Health Encounter Details Date Type Department Care Team Description 12/13/2020 Therapy [facility] Yvette Wesley, PT Vaginismus (Primary Dx) - Physical Therapy [address] [address] [address] [place] [address] [place], [place] [id number] [phone] Social History Tobacco Use Types Packs/Day Years Used Date Smoking Tobacco: Never Smokeless Tobacco: Never Alcohol Use Standard Drinks/Week Comments Not Currently 0 (1 standard drink = 0.6 oz pure alcoho l) Sex Assigned at Date Recorded Not on file documented as of this encounter Progress Notes Ellyn Wesley, PT - 12/13/2020 1:00 PM CST [facility] Physical Therapy Progress Note Visit Number: 2 Initial Certification Period: 11/29/2020 to 02/27/21 Referring Provider: Alexa Macario Visit Diagnosis: 1. Vaginismus Precautions: with EDC 04/14/20 SUBJECTIVE: Patient reports that she has had no issues with the stretches. The butterfly Stretch is a little strain to her low back. Positioning on the toilet has been helpful for her constipation during her . OBJECTIVE Current Objective Findings: SEMG reveals a resting tone between 3-5 microvolts when lying on her right side with a pillow between her knees. With pelvic floor contraction, she displays good recruitment but delayed relaxation after contraction. Treatment/Education Today: Therapeutic exercise x 15 minutes: Reviewed performance of hip adductor stretch - instructed to perform one leg at a time to decrease strain on her low back, sitting figure 4 stretch and child's pose. Instructed in and practiced pelvic floor contraction with 2 second contraction followed by 5 second relaxation with focus upon relaxation Neuromuscular re-education x 15 minutes: Performed SEMG exam as noted above. Practiced diaphragmaticbreathing and body scanning Self care/home management x 10 minutes: Instructed in and practiced controlling urge techniques. Timed Code Treatment Minutes: 40 Total Treatment Minutes: 40 Current Home Exercise Program List: Access Code: [email or web address] URL: [email or web address] Date: 11/29/2020 Prepared by: Ellyn Wesley Exercises Supine Hip Adductor Stretch - 5 reps - 10 seconds hold - 2x daily Seated Figure 4 Piriformis Stretch - 5 reps - 10 seconds hold - 2x daily Child's Pose Stretch - 5 reps - 10 seconds hold - 2x daily ASSESSMENT/PROGRESS TOWARD GOALS: Patient displays mild high tone of the pelvic floor. Am somewhat limited with treatment due to her status - unable to perform internal examination or incorporate use of dilators. Patient will benefit from skilled Physical Therapy to meet the goals listed below. Functional Goals/Outcomes: Verbalize understanding [...] intercourse at desired frequency in 3 months PLAN: Recheck in 4 weeks - may add strengthening if tolerated. 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
--- OUTSIDE RECORDS SUMMARY | 2022-10-10 23:56 | XMS_ITS | Encounter Summary ---
:1995 Author Organization [employer] Address [address] [place] [address] Care Team Providers Name Role Phone Unassigned, Provider Primary Care Provider Unavailable Reason for Visit Reason Comments Routine Visit 22w 4d Encounter Details Date Type Department Care Team Description 12/13/2020 Routine [facility] Adriana Neely Services-SENIOR JAVA UI DEVELOPER MD Marisela Visit (w 4d) [address], [address] [id number] Social History Tobacco Use Types Packs/Day Years Used Date Smoking Tobacco: Never Smokeless Tobacco: Never Alcohol Use Standard Drinks/Week Comments Not Currently 0 (1 standard drink = 0.6 oz pure alcoho l) Sex Assigned at Date Recorded Not on file documented as of this encounter Last Filed Vital Signs Vital Sign Reading Time Taken Comments Blood Pressure 112/54 12/13/2020 2:25 PM REAL ESTATE PHOTOGRAPHER Pulse 72 12/13/2020 2:25 PM REAL ESTATE PHOTOGRAPHER Temperature - - Respiratory Rate - - Oxygen Saturation - - Inhaled Oxygen Concentration - - Weight 74.6 kg (164 lb 6.4 oz) 12/13/2020 2:25 PM REAL ESTATE PHOTOGRAPHER Height - - Body Mass Index 30.07 11/20/2020 8:10 AM REAL ESTATE PHOTOGRAPHER documented in this encounter Patient Instructions Patient InstructionsOAdriana Ross MD - 12/13/2020 2:30 PM CST Learning About Screening for Gestational Diabetes What is gestational diabetes screening? Screening for gestational diabetes is a way to look for high blood sugar during . You drinksome very sweet liquid. Then you have a blood test to see how your body uses sugar (glucose). How is gestational diabetes screening done? Screening for gestational diabetes may be done in a couple of ways. Two-part screening. Part one (glucose challenge test): A blood sample is taken after you drink a liquid that contains sugar (glucose). You don't need to stop eating or drinking before this test. If the test shows that youdon't have a lot of sugar in your blood, you don't have gestational diabetes. Part two (oral glucose tolerance test, or OGTT): If the first test shows a lot of sugar in your blood, then you may have an OGTT. You can't eat or drink for at least 8 hours before this test. A blood sample is taken, then you drink a sweet liquid. You have more blood tests after 1 to 3 hours. If the OGTT shows that you have a lot of sugar in your blood, you may have gestational diabetes. One-part screening. Sometimes doctors use the OGTT on its own. If the test shows that you don't have a lot of sugar in your blood, you don't have gestational diabetes. If you do have a lot of sugar in your blood, you may have the condition. What are the risks of screening? Your blood glucose level may drop very low toward the end of the test. If this happens, you may feelweak, hungry, and restless. Tell your doctor if you have these symptoms. The test usually will be stopped. You may vomit after drinking the sweet liquid. If this happens, you may need to take the test at a later time. Your doctor may do more glucose tests at other times during your . Follow-up care is a norman part of your treatment and safety. Be sure to make and go to all appointments, and call your doctor if you are having problems. It's also a good idea to know your test results and keep a list of the medicines you take. Where can you learn more? 1. Go to https://[employer] (ROOF).Taketake/JustShareItlibrary or makerSQR/ShrinkTheWebraCoWare. 2. Enter A472 in the search box. Current as of: November 10, 2019?Content Version: 12.4 ?? [employer]. Care instructions adapted under license by your healthcare professional. If you have questions abouta medical condition or this instruction, always ask your healthcare professional. [employer] disclaims any warranty or liability for your use of this information. Oral Glucose Tolerance Test During : About This Test What is an oral glucose tolerance test (OGTT)? An oral glucose tolerance test (OGTT) measures how well your body uses sugar (glucose). It can be used to find prediabetes and diabetes. It's done most often to screen for diabetes during (gestational diabetes). Why is this test done? An OGTT may be done to: ?? Check for prediabetes and diabetes. ?? Check women for gestational diabetes. How do you prepare for the test? ?? Tell your doctor about all the prescription and nonprescription medicines you are taking. You maybe told to stop taking certain medicines before the test. ?? Do not eat, drink, smoke, or do strenuous exercise for at least 8 hours before your first blood sample is taken. (You can drink water before the test.) How is the test done? ?? A blood sample is taken when you arrive for the test. This is your fasting blood glucose value. It will be compared to other glucose values in your blood. ?? You will drink a small cup of very sweet liquid that contains 75 or 100 grams of glucose. ?? You will have more blood tests over 1 to 3 hours. ?? Since activity can affect test results, you will be asked to sit quietly during the entire test. Do not eat during the test. You may drink water during this time. How does having an oral glucose tolerance test (OGTT) feel? You may find it hard to drink the extremely sweet glucose liquid. Some people feel sick after drinking the glucose liquid and may vomit. Vomiting may prevent you from completing the test on that day. When a blood sample is taken, you may feel nothing at all from the needle. Or you might feel a quicksting or pinch. You may feel faint from having several blood samples taken in one day. But the amount of blood takenwill not cause significant blood loss or anemia. What happens after the test? ?? You will probably be able to go home right away, depending on the reason for the test. ?? You can go back to your usual activities right away. Follow-up care is a norman part of your treatment and safety. Be sure to make and go to all appointments, and call your doctor if you are having problems. It's also a good idea to keep a list of the medicines you take. Ask your doctor when you can expect to have your test results. Where can you learn more? 1. Go to https://MECLUB/RoomsterraCoWare or makerSQR/[employer]. 2. Enter D945 in the search box. Current as of: November 10, 2019?Content Version: 12.4 ?? [employer]. Care instructions adapted under license by your healthcare professional. If you have questions abouta medical condition or this instruction, always ask your healthcare professional. [employer] disclaims any warranty or liability for your use of this information. Learning About When to Call Your Doctor During (After 20 Weeks) Your Care Instructions It's common to have concerns about what might be a problem during . Although most women don't have any serious problems, it's important to know when to call your doctor if you have certain symptoms or signs of labor. These are general suggestions. Your doctor may give you some more information about when to call. When to call your doctor (after 20 weeks) Call 911 anytime you think you may need emergency care. For example, call if: ?? You have severe vaginal bleeding. ?? You have sudden, severe pain in your belly. ?? You passed out (lost consciousness). ?? You have a seizure. ?? You see or feel the umbilical cord. ?? You think you are about to deliver your baby and can't make it safely to the hospital. Call your doctor now or seek immediate medical care if: ?? You have vaginal bleeding. ?? You have belly pain. ?? You have a fever. ?? You have symptoms of preeclampsia, such as: ? Sudden swelling of your face, hands, or feet. ? New vision problems (such as dimness, blurring, or seeing spots). ? A severe headache. ?? You have a sudden release of fluid from your vagina. (You think your water broke.) ?? You think that you may be in labor. This means that you've had at least 6 contractions in an hour. ?? You notice that your baby has stopped moving or is moving much less than normal. ?? You have symptoms of a urinary tract infection. These may include: ? Pain or burning when you urinate. ? A frequent need to urinate without being able to pass much urine. ? Pain in the flank, which is just below the rib cage and above the waist on either side of the back. ? Blood in your urine. Watch closely for changes in your health, and be sure to contact your doctor if: ?? You have vaginal discharge that smells bad. ?? You have skin changes, such as: ? A rash. ? Itching. ? Yellow color to your skin. ?? You have other concerns about your . If you have labor signs at 37 weeks or more If you have signs of labor at 37 weeks or more, your doctor may tell you to call when your labor becomes more active. Symptoms of active labor include: ?? Contractions that are regular. ?? Contractions that are less than 5 minutes apart. ?? Contractions that are hard to talk through. Follow-up care is a norman part of your treatment and safety. Be sure to make and go to all appointments, and call your doctor if you are having problems. It's also a good idea to know your test results and keep a list of the medicines you take. Where can you learn more? 1. Go to https://[employer] (ROOF).Taketake/JustShareItlibrary or makerSQR/OnKurelibrary. 2. Enter N531 in the search box. Current as of: April 20, 2019?Content Version: 12.4 ?? [employer]. Care instructions adapted under license by your healthcare professional. If you have questions abouta medical condition or this instruction, always ask your healthcare professional. [employer] disclaims any warranty or liability for your use of this information. ESTATE PHOTOGRAPHER documented in this encounter Progress Notes Adrinaa Neely MD - 12/13/2020 2:30 PM CST [facility] Obstetrics & Gynecology Clinic CC: Follow-up care, NOB2 S: Yancy Watts is feeling well today. Denies any concerns. - Had her follow-up pelvic floor PT today; overall this is going well and she is hopeful. She denies loss of fluid, changes in vaginal discharge or vaginal bleeding. Reports good movement (for 1 week now). She has been having no regular contractions. Denies headache, vision changes, chest pain, shortness of breath. No hematuria, dysuria or other. Intermittent hemorrhoids with constipation. complications: - Late ZOE at 19 weeks - Vaginismus - COVID 19 in 1st trimester; growth at 32 weeks per [facility] recommendations O: Filed Vitals: 12/13/20 1425 BP: 112/54 Pulse: 72 Weight: 164 lb 6.4 oz (74.6 kg) Gen: alert, oriented, NAD See OB flowsheet A/P: 25 y.o. at 22w4d by LMP c/w 11w1d US presenting for follow-up care. Care: -OB labs reviewed: O positive, Rubella immune, HIV neg, Heb B nonreactive, Heb B immune, RPR negative -Genetics: Declined -Anatomy ultrasound: L2 with normal anatomy, posterior placenta, Girl! -Rh positive, Rhogam not indicated -GCT at 26-28 weeks along with CBC, RPR (ordered) - S/p flu, Tdap between 28-32 weeks - GBS at 36 weeks - Feed: Breast with pumping; will need Rx - Continue PNV Other: - Patient was oriented to the [facility] call system with delivery at [facility] - Discussed routine ob visits, timing of appts and routine testing. - Reviewed diet, activity and exercise, weight gain - Reviewed warning signs for which to notify us Follow-up in clinic in 4 weeks. Adriana Neely MD P: [phone] 12/13/2020 2:39 PM Dictation Disclaimer: Some notes are completed with voice-recognition dictation software. Typographical errors may result . Please contact me via [employer] staff message if you note any errors requiring clarification. ESTATE PHOTOGRAPHER documented in this encounter Plan of Treatment Upcoming Encounters Date Type Specialty Care Team Description 12/02/2022 Appointment Obstetrics [place] [address] [facility] [address] [place], [place] [address] (Wo rk) documented as of this encounter Results RPR with Reflex to Titer (01/10/2021 4:31 PM REAL ESTATE PHOTOGRAPHER) Patholo gist Method Time Signature RAPID PLASMA Non Reactive Non 01/12/2021 [facility]IN (RPR) Reactive 9:44 AM REAL ESTATE PHOTOGRAPHER LABORATORIES Comment: Rapid Plasma Reagin screening test is No n-Reactive. No further reflex testing is required. Performed By: [email or web address] [address] [place] [address] Professor Of Legal Studies: Susan Cope MD Specimen Anatomical Collection Method / Collection Time Recei clint Time (Source) Location / Volume Laterality Blood Venipuncture / 01/10/2021 4:31 01/10/2021 4:31 Unknown PM REAL ESTATE PHOTOGRAPHER PM REAL ESTATE PHOTOGRAPHER Adriana Neely MD LAB_1 Performing Organization Address City/[facility]/ZIP Code Phon e Number [employer] [facility] [address] [place], [place] [id number] Glucose, 1 hr. PC - O'Gutierrez [GLUOS] (01/10/2021 4:31 PM REAL ESTATE PHOTOGRAPHER) P athologist Signature Glucose, 1 84 70 - 135 01/11/2021 [facility] OB mg/dL 11:43 AM REAL ESTATE PHOTOGRAPHER LABORATORY Challenge Specimen Anatomical Collection Method / Collection Time Recei clint Time (Source) Location / Volume Laterality Blood Venipuncture / 01/10/2021 4:31 01/10/2021 4:31 Unknown PM REAL ESTATE PHOTOGRAPHER PM REAL ESTATE PHOTOGRAPHER Adriana Neely MD LAB_1 Performing Organization Address City/[facility]/ZIP Code Phon e Number [facility] [address] [place] [address] (ABNORMAL) CBC - Complete Blood Count - No Diff [ABC] (01/10/2021 4:31 PM REAL ESTATE PHOTOGRAPHER) [facility] gist Method Time Signature WBC 14.2 (H) 3.5 - 10.5 01/11/2021 [facility] x10(9)/L 11:25 AM REAL ESTATE PHOTOGRAPHER LAB[facility] RBC 3.89 (L) 3.90 - 01/11/2021 [facility] 5.03 11:25 AM REAL ESTATE PHOTOGRAPHER LAB[facility]ORY x10(12)/L Hemoglobin 12.3 12.0 - 01/11/2021 [facility] 15.5 g/dL 11:25 AM REAL ESTATE PHOTOGRAPHER [facility] HCT 37.0 34.9 - 01/11/2021 [facility] 44.5 % 11:25 AM REAL ESTATE PHOTOGRAPHER [facility] MCV 95.1 80.0 - 01/11/2021 [facility] 100.0 fL 11:25 AM REAL ESTATE PHOTOGRAPHER [facility] MCH 31.6 27.6 - 01/11/2021 [facility] 33.3 pg 11:25 AM REAL ESTATE PHOTOGRAPHER [facility] MCHC 33.2 31.5 - 01/11/2021 [facility] 35.2 g/dL 11:25 AM REAL ESTATE PHOTOGRAPHER [facility] RDW 13.1 11.9 - 01/11/2021 [facility] 15.5 % 11:25 AM REAL ESTATE PHOTOGRAPHER [facility] Platelets 236 150 - 450 01/11/2021 [facility] x10(9)/L 11:25 AM REAL ESTATE PHOTOGRAPHER [facility] Automated NRBC 0 <=0 /100 01/11/2021 [facility] WBC 11:25 AM REAL ESTATE PHOTOGRAPHER [facility] Specimen Anatomical Collection Method / Collection Time Recei clint Time (Source) Location / Volume Laterality Blood Venipuncture / 01/10/2021 4:31 01/10/2021 4:31 Unknown PM REAL ESTATE PHOTOGRAPHER PM REAL ESTATE PHOTOGRAPHER Adriana Neely MD LAB_1 Performing Organization Address City/State/ZIP Code Phon e Number [facility] [address] [place] [address] documented in this encounter Visit Diagnoses Diagnosis Encounter for supervision of normal firs t in second trimester - Primary Supervision of normal first Vaginismus documented in this encounter Care Teams Filter Pulp Washer Relationship Specialty Start Date End Date Unassigned, Provider PCP - General 08/26/[address] [place] [id number] documented as of this encounter
--- OUTSIDE RECORDS SUMMARY | 2022-10-10 23:56 | XMS_ITS | Encounter Summary ---
:1995 Author Organization [facility] Address [address] [place] [address] Care Team Providers Name Role Phone Unassigned, Provider Primary Care Provider Unavailable Reason for Referral Procedure/Equipment (Routine) - Incomplete Specialty Diagnoses / Procedures Referred By Contact Refer red To Contact Diagnoses Encounter for supervision of normal first in second trimester COVID-19 affecting in first trimester Adriana Neely MD Procedures US OB Follow-Up For Growth Single (Includes MAURICE) [address] [facility] [address] [place] [address] Referral ID Status Reason Start Date Expiration Date Visits V isits Requested Authorized [id number] Incomplete 02/07/2021 05/09/2022 10 10 [employer] Reason for Visit Reason Comments Routine Visit 26w 4d Encounter Details Date Type Department Care Team Description 01/10/2021 Routine [facility] Adriana Neely Services-CONFIGURATION DEVELOPER MD Marisela Visit (26w 4d) [address] [address], [address] [place] [address] [phone] Social History Tobacco Use Types Packs/Day Years Used Date Smoking Tobacco: Never Smokeless Tobacco: Never Alcohol Use Standard Drinks/Week Comments Not Currently 0 (1 standard drink = 0.6 oz pure alcoho l) Sex Assigned at Date Recorded Not on file documented as of this encounter Last Filed Vital Signs Vital Sign Reading Time Taken Comments Blood Pressure 123/78 01/10/2021 3:43 PM [employer] Pulse 90 01/10/2021 3:43 PM [employer] Temperature - - Respiratory Rate - - Oxygen Saturation - - Inhaled Oxygen Concentration - - Weight 78.9 kg (174 lb) 01/10/2021 3:43 PM [employer] Height - - Body Mass Index 31.83 11/20/2020 8:10 AM [employer] documented in this encounter Patient Instructions Patient InstructionsOAdriana Ross MD - 01/10/2021 4:15 PM CST Images from the original note were not included. Learning About Control After Childbirth What is control? control is any method used to prevent . Another word for control is contraception. Wait until you're healed (about 4 to 6 weeks) before you have sexual intercourse. If you have sex without control, there is a chance that you could get . This is true even if you haven't started having periods again. Even if you breastfeed, you can still get . Most experts suggest waiting at least 18 months to get again to reduce risks for you and the baby. There may be reasons for you to get sooner, so talk with your doctor about the risksand benefits. The only sure way to prevent another is to not have sex. But finding a good method of control that you are comfortable with can help you avoid an unplanned . Your doctor can help you choose the control method that is right for you. What are the types of control? ?? Long-acting reversible contraception (LARC) is the most effective reversible method you can use to prevent . If you decide you want to get , you can have them removed. LARCs are implants and intrauterine devices (IUDs). While they are being used, they usually prevent for years. ? Implants are placed under the skin of the arm. This can be done right after you give . They release the hormone progestin and prevent for about 3 years. ? IUDs are placed in the uterus by a doctor. This can be done right after you give , if you andyour doctor discuss it beforehand. Or it can be done at a doctor visit later. There are two main types of IUDs--the copper IUD and the hormonal IUD. The hormonal IUD releases progestin. IUDs prevent for 3 to 10 years, depending on the type. ?? Hormonal methods are very good at preventing . Combination control pills (the pill), skin patches, and vaginal rings release the hormones estrogen and progestin. Depo-Provera is a shot you get every 3 months. Shots, mini-pills, IUDs, and implants release progestin only. It's best to use progestin-only options in the first few weeks after giving . ?? Barrier methods don't prevent as well as implants, IUDs, or hormonal methods do. Barrier methods include condoms, diaphragms, and cervical caps. You must use barrier methods every time youhave sex. If you had a diaphragm or cervical cap before you got , talk to your doctor to seeif you need a different size. Condoms can be used anytime after you give . ?? Natural family planning is also known as fertility awareness or the rhythm method. It can work ifyou and your partner are very careful and you have a regular ovulation cycle. But it doesn't work better than other control methods. You will need to keep good records so you know when you are most likely to become . And during those times, you will need to use a barrier method or not have sex. ?? Permanent control (sterilization) gives you lasting protection against . A man canhave a vasectomy. A woman can have her tubes tied (tubal ligation). But this is only a good choice if you are sure that you don't want any more children. ?? Emergency contraception is a backup method to prevent if you didn't use control or if a condom breaks. The most effective emergency contraception is prescribed by a doctor. This includes the copper IUD (inserted by a doctor) or a prescription pill. You can also get emergency contraceptive pills without a prescription at most drugstores. How can you get control? ?? You can buy: ? Condoms and spermicides without a prescription in drugstores, online, and in many grocery stores. ? Some forms of emergency contraception without a prescription at most drugstores. ?? You need to see a doctor or visit family planning clinic to: ? Get a prescription for control pills and other methods that use hormones. ? Have an implant or IUD inserted, including the type of IUD used for emergency contraception. ? Get a hormone shot. ? Get a prescription for a diaphragm or cervical cap. ? Get a prescription for certain kinds of emergency contraception. Follow-up care is a norman part of your treatment and safety. Be sure to make and go to all appointments, and call your doctor if you are having problems. It's also a good idea to know your test results and keep a list of the medicines you take. Where can you learn more? 1. Go to https://OPENLANE/Perfect Marketrary or [facility]/Crysalinrary. 2. Enter X408 in the search box. Current as of: April 20, 2019?Content Version: 12.4 ?? [employer]. Care instructions adapted under license by your healthcare professional. If you have questions abouta medical condition or this instruction, always ask your healthcare professional. [employer] disclaims any warranty or liability for your [...] can you learn more? 1. Go to https://[employer].VarVee/healthlibrary or [facility]/Crysalinrary. 2. Enter N531 in the search box. Current as of: April 20, 2019?Content Version: 12.4 ?? [employer]. Care instructions adapted under license by your healthcare professional. If you have questions abouta medical condition or this instruction, always ask your healthcare professional. [employer] disclaims any warranty or liability for your use of this information. [employer] documented in this encounter Progress Notes Adriana Neely MD - 01/10/2021 4:15 PM CST [facility] ?? CC: Follow-up care, NOB2 ?? S: Yancy Watts is feeling well today. Denies any concerns. - Just got done with pelvic floor PT ?? She denies loss of fluid, changes in vaginal discharge or vaginal bleeding. Reports good movement (for 1 week now). She has been having no regular contractions. Denies headache, vision changes, chest pain, shortness of breath. No hematuria, dysuria or other. Intermittent hemorrhoids with constipation. ?? complications: - Late ZOE at 19 weeks - Vaginismus - COVID 19 in 1st trimester; growth at 32 weeks per M recommendations ?? O: Vitals: 01/10/21 1543 BP: 123/78 Pulse: 90 Gen: alert, oriented, NAD ?? See OB flowsheet ?? A/P: 25 y.o. at 26w4d by LMP c/w 11w1d US presenting for follow-up care. Care: -OB labs reviewed: O positive, Rubella immune, HIV neg, Heb B nonreactive, Heb B immune, RPR negative -Genetics: Declined -Anatomy ultrasound: L2 with normal anatomy, posterior placenta, Girl! -Rh positive, Rhogam not indicated -GCT along with CBC, RPR today - S/p flu, Tdap between 28-32 weeks (next visit) - GBS at 36 weeks - Feed: Breast with pumping; will need Rx - Continue PNV - Contraception: Undecided, information given. IPI of 18 months reviewed. COVID in early : - Growth US for 32 weeks ordered ?? Follow-up in clinic in 4 weeks. Adriana Neely MD P: [phone] 01/10/2021 3:59 PM Dictation Disclaimer: Some notes are completed with voice-recognition dictation software. Typographical errors may result . Please contact me via anfix staff message if you note any errors requiring clarification. [employer] documented in this encounter Plan of Treatment Upcoming Encounters Date Type Specialty Care Team Description 12/02/2022 Appointment Obstetrics [place] [id number] [address] (Wo rk) documented as of this encounter Results US OB Follow-Up For [...] Abdominal Circumference Percentile: 67.3 % Estimated Weight: ??2062 grams Weight Percentile: 48.5% Other Findings: None. [...] MAURICE results called: NA Adriana Neely MD [facility] documented in this encounter Visit Diagnoses Diagnosis Encounter for supervision of normal firs t in second trimester - Primary Supervision of normal first Vaginismus COVID-19 affecting in first tr imester Encounter for supervision of normal firs t in second trimester Supervision of normal first COVID-19 affecting in first tr imester documented in this encounter Care Teams Discharge Rn Relationship Specialty Start Date End Date Unassigned, Provider PCP - General 08/26/[address] [place] [id number] documented as of this encounter
--- OUTSIDE RECORDS SUMMARY | 2022-10-10 23:56 | XMS_ITS | Encounter Summary ---
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 [address] [facility] Visit (37w5d) [address], [address] [place] [id number] Social History Tobacco Use Types Packs/Day Years Used Date Smoking Tobacco: Never Smokeless Tobacco: Never Alcohol Use Standard Drinks/Week Comments Not Currently 0 (1 standard drink = 0.6 oz pure alcoho l) Sex Assigned at Date Recorded Not on file documented as of this encounter Last Filed Vital Signs Vital Sign Reading Time Taken Comments Blood Pressure 115/57 03/29/2021 1:03 PM CDT Pulse 90 03/29/2021 1:03 PM CDT Temperature - - Respiratory Rate - - Oxygen Saturation - - Inhaled Oxygen Concentration - - Weight 87.8 kg (193 lb 9.6 oz) 03/29/2021 1:03 PM CDT Height - - Body Mass Index 35.41 11/20/2020 8:10 AM CLINIC [facility] documented in this encounter Progress Notes Jeni Lopez MD - 03/29/2021 1:00 PM CDT [facility] ?? CC: Follow-up care ?? S: Yancy Watts is feeling well today. No questions or concerns. Occasional loose BM in last couple days. Occasional contractions. She denies loss of fluid or vaginal bleeding. Reports good movement. ?? complications: - Late ZOE at 19 weeks - Vaginismus, saw pelvic floor PT - COVID 19 in 1st trimester ?? O: Vitals: 03/29/21 1303 BP: 115/57 Pulse: 90 Gen: alert, oriented, NAD See OB flowsheet Cvx 0/10%/-4, posterior, firm ?? A/P: 25 y.o. at 38w0d by LMP c/w 11w1d US presenting for [...] Appointment Obstetrics & [place] [address] [address] (Wo rk) documented as of this encounter Visit Diagnoses Diagnosis Encounter for supervision of normal firs t in second trimester - Primary Supervision of normal first Vaginismus documented in this encounter Care Teams Glassware Maker Relationship Specialty Start Date End Date Unassigned, Provider PCP - General 08/26/[address] [place] [id number] documented as of this encounter
[2022-10-11 00:12] VITALS: BP 110/69; PULSE 50; RESP 18; O2SAT 98
--- NOTE | 2022-10-11 00:15 | ED.GENADULT ---
HPI - General Adult General Chief complaint: Unspecified Complaint, Adult Stated complaint: right side numbness, Time Seen by Provider: 10/10/22 22:02 History of Present Illness HPI narrative: Pt is a otherwise healthy woman who delivered her first baby 1 week ago. She had a very intense delivery. So much so that the pushing led to subscleral hemorrhages bilaterally. These areas of blood are improving. Pt today noted drooping of the right side of her mouth. No drooling. Pt is able to close the right eye but it does feel slightly weaker. Pt became very anxious as she worried that she was having a stroke. Pt has no other neurological concerns. Symptoms have persisted for the past 6 hours. She has had no signs of infection such as fever or chills. Pt has had no similar symptoms. Pt is breast feeing. was otherwise uneventful. Related Data Home Medications Medication Instructions Recorded Confirmed No Known Home Medications 10/10/22 10/10/22 Allergies Allergy/AdvReac Type Severity Reaction Status Date / Time No Known Drug Allergies Allergy Verified 10/10/22 22:02 Review of Systems Status of ROS: Reports: 10 or more systems reviewed and unremarkable except as noted in History and below [facility] Social History Smoking Status: Never smoker Do you use any of these nicotine containing products: None Second hand tobacco smoke exposure: No How often do you have a drink containing alcohol: never AUDIT-C Alcohol total score: 0 Non-prescribed substance use: denies use Exam Narrative: Exam Narrative: EXAM GENERAL: Patient appears comfortable and well. EYES: No scleral icterus. Subscleral hemorrhages bilaterally. ENT: Tympanic membranes and oropharynx normal. THYROID: no thyroid nodules or thyromegaly. LYMPH: No supraclavicular or cervical lymphadenopathy. SKIN: Visible skin seen during exam normal or with benign process only. EXT: No dependent lower extremity pedal edema. HEART: Regular rate and rhythm with no murmurs, rubs, or gallops. LUNGS: Clear to auscultation bilaterally with no crackles or wheezes. ABD: Soft, non tender, non distended. PSYCH: Good eye contact, speech is not pressured. Neurological: Tongue movement normal. Slight drooping of the right side of her mouth when smiling. Eye brow does move normally but slight weakness of the upper eyelid no the right. No other focal neurological symptoms. Const: Vital Signs, click to edit/add: Vital Signs - 24 hr 10/10/22 21:59 10/10/22 22:10 10/11/22 00:12 Temperature 98.0 F Pulse Rate [Right Pulse Oximeter] 89 52 L 50 L Respiratory Rate 18 18 Blood Pressure [Ri ght Upper Arm] 134/85 110/69 Pulse Oximetry 99 98 Oxygen Delivery Me thod Room Air Room Air Course Course Hospital Course: Pt seen and examined. CT of head and CTA of head and neck ordered and reviewed by me as normal. CBC, BMP also normal. Consultations Consultation #1: Case reviewed with Neurology. Workup complete with EKG showing NSR. Vital Signs Vital signs: Initial Vital Signs Temperature 98.0 F 10/10/22 21:59 Temperature Source Temporal Artery Scan 10/10/22 21:59 Pulse Rate 89 10/10/22 21:59 Respiratory Rate 18 10/10/22 21:59 Blood Pressure 134/85 10/10/22 21:59 Blood Pressure Mean 101 10/10/22 21:59 Blood Pressure Position Sitting 10/10/22 21:59 Pulse Oximetry 99 10/10/22 21:59 Oxygen Delivery Method 10/10/22 21:59 Vital Signs Temperature 98.0 F 10/10/22 21:59 Pulse Rate 89 10/10/22 21:59 Respiratory Rate 18 10/10/22 21:59 Blood Pressure 134/85 10/10/22 21:59 Pulse Oximetry 99 10/10/22 21:59 Oxygen Delivery Method 10/10/22 21:59 Temperature 98.0 F 10/10/22 21:59 Pulse Rate 50 L 10/11/22 00:12 Respiratory Rate 18 10/11/22 00:12 Blood Pressure 110/69 10/11/22 00:12 Pulse Oximetry 98 10/11/22 00:12 Oxygen Delivery Method 10/11/22 00:12 Medical Decision Making MDM Narrative Medical decision making narrative: Pt presents with right sided facial weakness as described above. Pt worked up with CT and CTA. EKG nsr. Labs normal. Case reviewed with Neruology. Recommended RX with prednisone for Sen's Palsy with PCP follow up. MRI if symptoms do not improve. Differential Diagnosis Differential Diagnosis: CVA, TIA, Artery disection, Sen's Palsy, Seizure Lab Data Labs: Lab Results 10/10/22 10/10/22 Range/Units 22:10 22:10 WBC 9.73 (4.50-11.00) K/uL RBC 4.12 (4.00-5.20) m/uL Hgb 12.5 (12.0-16.0) gm/dL Hct 38.1 (33.0-51.0) % MCV 93 (80-100) fL MCH 30 (26-34) pg MCHC 33 (32-36) gm/dL RDW Coeff of Guille 13.0 (11.5-15.5) % Plt Count 337 (140-440) K/uL Neut % (Auto) 54.1 (42.0-72.0) % Lymph % (Auto) 36.1 (20-44) % Panola % (Auto) 7.3 (0.0-11.0) % Eos % (Auto) 1.2 (0.0-7.0) % Baso % (Auto) 0.5 (0.0-3.0) % Neut # (Auto) 5.26 (1.7-7.0) K/uL Lymph # (Auto) 3.51 H (0.90-2.90) K/uL Panola # (Auto) 0.70 (0.00-0.90) K/UL Eos # (Auto) 0.12 (0.00-0.50) K/uL Baso # (Auto) 0.05 (0.00-0.30) K/uL Abs Immat Gran (auto) 0.08 (0.00-0.30) K/uL Imm/Tot Granulo (auto) 0.8 % Sodium 139 (135-149) mmol/L Potassium 4.3 (3.6-5.1) mmol/L Chloride 109 (96-114) mmol/L Carbon Dioxide 26 (20-32) mmol/L BUN 14 (5-24) mg/dL Creatinine 0.7 (0.5-1.5) mg/dL Estimated Creat Clear 95.48 Estimated GFR 121 ml/min Glucose 78 (60-115) mg/dL Calcium 9.0 (8.4-10.6) mg/dL Discharge Plan Discharge Clinical Impression: Sen's palsy Patient Disposition: Home, Self-Care Condition: Stable Instructions: Sen Palsy (ED) Additional Instructions: Prednisone as directed Activity Level: No Restrictions Discharge Diet: Regular Prescriptions: No Action No Known Home Medications Follow Up/Referrals: Provider,Not a Local [Primary Care Provider] - Stand Alone Forms: Needle HR Info Instructions
== END 2022-10-11 00:36 | disposition home or self-care (01) ==
PROVIDERS: Emergency Provider Internal Medicine
DX: G51.0 Bell's palsy (principal)
CPT/HCPCS: 36415; 70450; 70496; 70498; 80048; 85025; 93005; 99283; 99284; Q9967